=== PATIENT | female | born 1950 | race Two or more races ===

== ENCOUNTER 2019-08-26 09:21 | Inpatient (IN) | payer OTHER, MEDICAID ==
[~2019-08-26] VITALS: Ht 152.4 cm; Wt 62.5 kg
[2019-08-26] MEDS ORDERED: fentaNYL CITRATE 100 MCG/2 ML VL ONE ×2 (09:44→10:59)
[2019-08-26] MEDS ORDERED: MIDAZOLAM HCL 1MG/1ML-2 ML VIAL ONE ×2 (09:44→10:59)
[2019-08-26] MEDS ORDERED: ANGIOMAX 250 MG VIAL IV ONE (09:44)
[2019-08-26] MEDS ORDERED: SODIUM CHL 0.9% 50 ML ONE (09:45)
[2019-08-26] MEDS ORDERED: LIDOCAINE 2%HCL (LOCAL ANESTH.) INJ 20ML MDV ONE (09:45)
[2019-08-26] MEDS ORDERED: IOHEXOL 350 MG/ML 100ML IJ ONE ×2 (09:45→10:37)
[2019-08-26] MEDS ORDERED: MORPHINE SULFATE 4 MG/ML SYR/VIAL ONE (09:47)
[2019-08-26] MEDS ORDERED: ONDANSETRON HCL 4 MG/2 ML VIAL ONE (09:48)
[2019-08-26] MEDS ORDERED: MORPHINE SULF INJ 2 MG/ML SYRINGE 1ML ONE (09:49)
[2019-08-26] MEDS ORDERED: ASPirin 81 mg TAB ONE (09:59)
[2019-08-26] MEDS ORDERED: MORPHINE SULFATE 4 MG/ML SYR/VIAL IV ONE (10:00)
[2019-08-26] MEDS ORDERED: ASPirin 325 MG TAB PO ONE (10:00)
[2019-08-26] MEDS ORDERED: EPINEPHrine HCL 1 MG/10 ML SYRG ONE (10:00)
[2019-08-26] MEDS ORDERED: ONDANSETRON HCL 4 MG/2 ML VIAL IV ONE (10:00)
[2019-08-26] MEDS ORDERED: ATROPINE SULF 1 MG/10ml SYR ONE (10:00)
[2019-08-26] MEDS ORDERED: DOPamine 1600MCG/ML D5W 0 ML IV ONE (10:00)
[2019-08-26] MEDS: ASPirin 81 mg TAB PO SCH (10:14)
[2019-08-26 10:28] LABS: Basophils # (auto) 0.1 uL; Eosinophils # (auto) 0.2 uL; Hematocrit 32.8 % (36.0-46.0); Lymphocytes # (auto) 1.4 uL; Lymphocytes % (auto) 17.1 % (10.0-50.0); Mean Corpuscular Hemoglobin 29.1 pg (28.0-32.0); Mean Corpuscular Hgb Conc. 33.5 g/dL (32.0-36.0); Mean Corpuscular Volume 86.9 fL (80.0-100.0); Monocytes # (auto) 0.3 uL; Monocytes % (auto) 4.3 % (0.0-12.0); Neutrophils # (auto) 6.1 uL; Neutrophils % (auto) 75.6 % (37.0-80.0); Platelet Count (auto) 309 10^3/uL (140-450); Red Blood Cells 3.78 10^6/uL (4.0-5.20); White Blood Cell 8.1 10^3/uL (4.4-10.8)
[2019-08-26 10:46] LABS: INR 0.95 (0.9-1.15); Partial Thromboplastin Time 27.4 sec (23.64-32.05)
[2019-08-26 10:48] LABS: Albumin 3.4 g/dL (3.4-5.0); BUN/Creatinine Ratio 16.1; Calcium 8.9 mg/dL (8.5-10.1); Magnesium 1.7 mg/dL (1.6-2.6); Potassium 4.7 mmol/L (3.5-5.1)
[2019-08-26 10:54] LABS: Bilirubin, Total 0.4 mg/dL (0.2-1.0); Total Protein 7.9 g/dL (6.4-8.2)
[2019-08-26] MEDS ORDERED: InsuLIN REG 1unit/0.01ml Soln (100units/ml) ONE (10:58)
[2019-08-26] MEDS ORDERED: ADENOSINE 6 MG/2 ML INJ IV ONE (11:00)
[2019-08-26] MEDS ORDERED: SODIUM BICARBONATE 8.4 % INJ 50ML VIAL IV ONE (11:21)
[2019-08-26] MEDS ORDERED: TICAGRELOR 90 MG TAB ONE (11:28)
[2019-08-26] MEDS ORDERED: SODIUM BICARBONATE 50ML VIAL 50 ML in SOD CHL 0.45% 1,000 ML IV ONE (11:30)
[2019-08-26] MEDS ORDERED: NITROGLYCERIN 0.4 MG SL TAB SL PRN (12:00)
[2019-08-26] MEDS ORDERED: CILO100T PO (12:27)
[2019-08-26] MEDS ORDERED: LINA5TAB PO (12:27)
[2019-08-26] MEDS ORDERED: LISI10TA6 PO (12:27)
[2019-08-26] MEDS ORDERED: METO25TA5 PO (12:27)
[2019-08-26] MEDS ORDERED: ATOR40TA52 PO (12:27)
[2019-08-26] MEDS ORDERED: HYDR25TA4 PO (12:27)
[2019-08-26] MEDS ORDERED: GLIP5TAB12 PO (12:27)
[2019-08-26] MEDS ORDERED: DEXTROSE (50%) 50ML SYRG IV PRN (12:30)
[2019-08-26] MEDS: InsuLIN REG 1unit/0.01ml Soln (100units/ml) SC SCH ×3 (12:47→20:56)
[2019-08-26 12:52] LABS: BUN/Creatinine Ratio 17.3; Calcium 8.4 mg/dL (8.5-10.1); Potassium 5.3 mmol/L (3.5-5.1)
[2019-08-26] MEDS ORDERED: SODIUM CHLOR 0.9% PF (SALINE LOCK) 10ML VIAL/SYR IV SCH (14:00)
[2019-08-26] MEDS: SODIUM CHLOR 0.9% PF (SALINE LOCK) 10ML VIAL/SYR IV SCH ×2 (14:09→20:11)
[2019-08-26 16:23] VITALS: BP 131/75
--- NOTE | 2019-08-26 16:40 | NUR ---
Admit to [facility] Kenneth CARBALLOdmitted to [facility] via gurney on furnace process supervisor, and portable 02. Patient transfered to bed, connected to unit monitoring and oxygen, and weighed by bedscale. Patient oriented to Steffen manuel RN, unit, room, bed, and unit policies regarding patient care and visiting hours. All questions and concerns addressed, patient verbalized understanding.
--- NOTE | 2019-08-26 17:28 | NUR ---
FAMILY AT BEDSIDE UPDATED ON PATIENT STATUS. ALL QUESTIONS AND CONCERNS ADDRESSED AT THIS TIME
[2019-08-26] MEDS: ACCU-CHEK COMFORT CURVE STRIP VI SCH ×2 (18:06→20:56)
[2019-08-26] MEDS: glipiZIDE 5 MG TAB PO SCH (18:09)
[2019-08-26] MEDS: ACETAMINOPHEN 500 MG TAB PO PRN ×2 (18:20→22:16)
[2019-08-26 18:43] VITALS: BP 134/62
--- NOTE | 2019-08-26 18:50 | NUR ---
DINNER TRAY PROVIDED TO PATIENT
--- NOTE | 2019-08-26 19:15 | NUR ---
REPORT GIVEN TO SAI PÉREZ TO ASSUME CARE
--- NOTE | 2019-08-26 19:21 | NUR ---
REPORT RECEIVED, ASSUMED CARE.
[2019-08-26 20:00] VITALS: BP 120/71
[2019-08-26] MEDS: TICAGRELOR 90 MG TAB PO SCH (20:11)
[2019-08-26] MEDS: METOPROLOL TARTRATE 25 MG TAB PO SCH (20:11)
[2019-08-26] MEDS: ACETYLCYSTEINE ORAL for CIN 20%(200MG/ML) 4ML PO SCH (20:56)
[2019-08-26] MEDS: CILOSTAZOL 100 MG TAB PO SCH (20:56)
[2019-08-26 23:42] VITALS: BP 112/69
[2019-08-27] VITALS (7 sets, daily range): BP systolic 110–129; BP diastolic 59–77
[2019-08-27] MEDS: HYDROcodone-ACET 5/325MG TAB PO PRN ×2 (01:51→09:00)
[2019-08-27 05:17] LABS: BUN/Creatinine Ratio 14.8; Calcium 7.9 mg/dL (8.5-10.1); Potassium 4.9 mmol/L (3.5-5.1)
[2019-08-27] MEDS: ACCU-CHEK COMFORT CURVE STRIP VI SCH ×4 (05:38→22:00)
[2019-08-27] MEDS: SODIUM CHLOR 0.9% PF (SALINE LOCK) 10ML VIAL/SYR IV SCH ×3 (05:38→23:20)
[2019-08-27] MEDS: InsuLIN REG 1unit/0.01ml Soln (100units/ml) SC SCH ×4 (05:39→22:00)
[2019-08-27] MEDS: glipiZIDE 5 MG TAB PO SCH ×2 (06:54→18:11)
--- NOTE | 2019-08-27 08:00 | NUR ---
Opening Shift Note Assumed care of patient, awake and alert. Patient A&Ox4. Patient Kazakh speaking only. Patient on the monitor. Patient on 2L NC saturation at 95%. IV 18G left forearm saline locked and 20G right forearm saline locked, both IV's patent, clean, dry, and intact. No S/S of distress/SOB or pain. Instructed on POC and to call for assist. Bed locked and in the lowest position, side rails up x2, call light with in reach. Will continue to monitor.
--- NOTE | 2019-08-27 08:30 | NUR ---
Patient sitting in bedside chair eating breakfast with assistance from Daughter. Will continue to monitor.
[2019-08-27] MEDS: LINAGLIPTIN BASE 5 MG PO SCH (10:00)
[2019-08-27] MEDS ORDERED: HCTZ 25 MG TAB PO SCH (10:00)
[2019-08-27] MEDS ORDERED: LISINOPRIL 10 MG TAB PO SCH (10:00)
--- NOTE | 2019-08-27 10:00 | NUR ---
Medication dosages, usages, and side effects explained to patient. Patient verbalized understanding. Will continue to monitor.
[2019-08-27] MEDS: ATORVASTATIN 20 MG TAB PO SCH (10:32)
[2019-08-27] MEDS: METOPROLOL TARTRATE 25 MG TAB PO SCH (10:33)
[2019-08-27] MEDS: TICAGRELOR 90 MG TAB PO SCH ×2 (10:34→23:18)
[2019-08-27] MEDS: CILOSTAZOL 100 MG TAB PO SCH (10:34)
[2019-08-27] MEDS: ASPirin 81 mg TAB PO SCH (10:34)
[2019-08-27] MEDS: ACETYLCYSTEINE ORAL for CIN 20%(200MG/ML) 4ML PO SCH ×2 (10:41→23:19)
--- NOTE | 2019-08-27 12:30 | NUR ---
Patient sitting in bedside chair eating breakfast with assistance from family. Will continue to monitor.
[2019-08-27] MEDS ORDERED: LISINOPRIL 20 MG TAB PO ONE (13:00)
--- NOTE | 2019-08-27 13:00 | NUR ---
Dr. Delgado at bedside.
[2019-08-27 13:39] LABS: Cholesterol 102 mg/dL (< 200)
[2019-08-27 13:42] LABS: HDL Cholesterol 34 mg/dL (40-59); LDL Cholesterol 59 mg/dL (< 100); Triglycerides 125 mg/dL (< 150)
--- NOTE | 2019-08-27 15:30 | NUR ---
Patient resting at this time. No S/S of pain/SOB or distress. Will continue to monitor.
[2019-08-27] MEDS: METOPROLOL TARTRATE 50 MG TAB PO SCH ×2 (15:31→23:19)
--- NOTE | 2019-08-27 17:45 | NUR ---
Report given to Suzy PÉREZ. Patient going to room 218A.
[2019-08-27] MEDS ORDERED: diphenhdrAMINE HCL 25 MG CAP PO PRN (18:15)
--- NOTE | 2019-08-27 18:15 | NUR ---
Patient taken to room 218A via wheel chair. All belongings taken with the patient. No S/S of pain/SOB or distress upon transport. Patient in room 218A and resting at this time. ELISA south.
--- NOTE | 2019-08-27 18:20 | NUR ---
Received patient from [facility]. Patient came via wheelchair. Patient placed on 3 L O2 NC, with VS of 115/61, 92%, 16RR, 74bpm and temp of 98.7. Patient is sitting on the edge of the bed eating dinner. No signs of distress. Will continue to monitor.
[2019-08-27] MEDS: ONDANSETRON HCL 4 MG/2 ML VIAL IV PRN ×2 (18:54→21:15)
--- NOTE | 2019-08-27 19:00 | NUR ---
Opening Shift Note Assumed care of patient, awake and alert. No S/S of distress/SOB or pain. Instructed on POC and to call for assist PRN, will continue to monitor for changes Q1hr and PRN.
[2019-08-27] MEDS: MORPHINE SULF INJ 2 MG/ML SYRINGE 1ML IV PRN (21:16)
--- NOTE | 2019-08-27 22:30 | NUR ---
PT COMPLAINING ABOUT URGE TO URINATE BUT NOT BEING ABLE TO. BLADDER SCAN SHOWED 35 ML . PT IN DISTRESS GETTING MOR AND MORE AGITATED.
--- NOTE | 2019-08-27 22:55 | NUR ---
TEXT TO DOCTOR CHRISTIANO WITH REPORT AND ASKING FOR ORDERS.
--- NOTE | 2019-08-27 23:00 | NUR ---
RECEIVED AND IMPLEMENTED ORDERS FROM DOCTOR CHRISTIANO
[2019-08-27] MEDS ORDERED: guaiFENesin-CODEINE Liq 5 ML UD PO PRN (23:15)
[2019-08-28] MEDS: cefTRIAXone 1GM/50ML D5W 50 ML IV SCH ×2 (00:30→23:55)
--- NOTE | 2019-08-28 01:30 | NUR ---
PYRIDIUM ORDER CONTRAINDICATED BY PHARMACY
[2019-08-28 05:00] VITALS: BP 141/82
--- NOTE | 2019-08-28 05:00 | NUR ---
BLADDER SCAN 100 ML
--- NOTE | 2019-08-28 06:50 | NUR ---
TEXT TO DOCTOR CHRISTIANO REPORTING PATIENT BEING VERY AGITATED.SECOND% BLADDER SCAN SHOWED 100 ML t 99.1, HR98, BP141/87. SPO2 89% AND INFO ABOUT BY THE PHARMACY CONTRAINDICATED PYRIDIUM ORDER.
[2019-08-28] MEDS: InsuLIN REG 1unit/0.01ml Soln (100units/ml) SC SCH ×4 (07:00→22:00)
[2019-08-28] MEDS: ACCU-CHEK COMFORT CURVE STRIP VI SCH ×4 (07:00→22:24)
[2019-08-28] MEDS: glipiZIDE 5 MG TAB PO SCH ×2 (07:00→18:00)
--- NOTE | 2019-08-28 07:30 | NUR ---
REPORT GIVEN TO BONNIE
--- NOTE | 2019-08-28 07:30 | NUR ---
Opening Shift Note Assuming care of patient at this time. Patient is awake and alert. Patient is moaning and expressing discomfort in Lebanese. Patient handed this RN her cellphone at this time and requested that multiple numbers be called. No answer from any of the numbers dialed. Patient shows no signs or symptoms of shortness of breath. Bed is locked and lowered with side rails up x2. Instructed patient on the plan of care for today and to call for assistance as needed. Call light within reach. Will continue to round hourly and as needed.
[2019-08-28] MEDS: SODIUM CHLOR 0.9% PF (SALINE LOCK) 10ML VIAL/SYR IV SCH ×3 (08:34→22:23)
[2019-08-28] MEDS ORDERED: SODIUM CHLORIDE 0.9% 1,000 ML IV ONE (08:45)
[2019-08-28 09:00] VITALS: BP 119/84
--- NOTE | 2019-08-28 09:00 | NUR ---
Refusing Labs/Medications Patient has been refusing labs and medications this morning. Patient is sitting at the edge of the bed, very anxious, and moaning. Educated patient on the importance of medications and accurate labs.
[2019-08-28] MEDS: LINAGLIPTIN BASE 5 MG PO SCH (09:52)
[2019-08-28] MEDS ORDERED: PHENAZOPYRIDINE HCL 100 MG TAB PO SCH (10:00)
[2019-08-28] MEDS: METOPROLOL TARTRATE 50 MG TAB PO SCH ×2 (10:00→22:24)
[2019-08-28] MEDS: ATORVASTATIN 20 MG TAB PO SCH (10:00)
[2019-08-28] MEDS ORDERED: LISINOPRIL 20 MG TAB PO SCH (10:00)
[2019-08-28] MEDS: TICAGRELOR 90 MG TAB PO SCH ×2 (10:00→22:24)
[2019-08-28 10:05] LABS: Basophils # (auto) 0 uL; Basophils % (auto) 0.2 % (0.0-2.0); Eosinophils # (auto) 0 uL; Eosinophils % (auto) 0.4 % (0.0-7.0); Hematocrit 25.8 % (36.0-46.0); Hemoglobin 8.8 g/dL (12.2-16.2); Lymphocytes % (auto) 8.1 % (10.0-50.0); Mean Corpuscular Hemoglobin 29.3 pg (28.0-32.0); Mean Corpuscular Hgb Conc. 34.3 g/dL (32.0-36.0); Mean Corpuscular Volume 85.4 fL (80.0-100.0); Monocytes # (auto) 0.7 uL; Monocytes % (auto) 5.8 % (0.0-12.0); Neutrophils # (auto) 10.1 uL; Neutrophils % (auto) 85.5 % (37.0-80.0); Nucleated Red Blood Cells % 0.1 %; Platelet Count (auto) 242 10^3/uL (140-450); Red Blood Cells 3.02 10^6/uL (4.0-5.20); Red Cell Distribution Width 15.2 % (11.8-14.3); White Blood Cell 11.8 10^3/uL (4.4-10.8)
[2019-08-28] MEDS: MORPHINE SULF INJ 2 MG/ML SYRINGE 1ML IV PRN ×3 (10:15→21:06)
--- NOTE | 2019-08-28 10:20 | NUR ---
Nephrology Consult Dr. Tang is aware of pending consult.
--- NOTE | 2019-08-28 10:24 | NUR ---
Call to Dr. Delgado Call to Dr. Delgado. Patient had approximately 75 mL of urine out from stevens catheter. Dr. Delgado wants nephrology consult called immediately. Will notify rn coronary care unit.
[2019-08-28 10:28] LABS: Calcium 7.7 mg/dL (8.5-10.1); Potassium 5.3 mmol/L (3.5-5.1)
[2019-08-28 10:30] LABS: Bilirubin, Total 0.3 mg/dL (0.2-1.0); Total Protein 7.3 g/dL (6.4-8.2)
[2019-08-28] MEDS ORDERED: SODIUM CHL 3% 500 ML IV SCH ×2 (11:00→11:30)
[2019-08-28] MEDS ORDERED: diphenhdrAMINE HCL 50 MG/1 ML VL IV ONE (11:00)
[2019-08-28] MEDS ORDERED: BUMETANIDE 2.5mg/10ml (0.25 mg/ml) INJ IV ONE (11:30)
[2019-08-28] MEDS ORDERED: SODIUM BICARBONATE 50ML VIAL 100 ML in SOD CHL 0.45% 1,000 ML IV SCH (11:30)
--- NOTE | 2019-08-28 13:00 | NUR ---
Dr. Green at bedside Dr. Green at bedside discussing plan of care with patient and this RN. Dr. Green does not want patient to receive fluids as ordered by Dr. Tang. Patient is edematous. Patient has pulmonary edema per Dr. Green. Will notify Dr. Tang.
[2019-08-28] MEDS: ACETYLCYSTEINE ORAL for CIN 20%(200MG/ML) 4ML PO SCH (13:15)
--- NOTE | 2019-08-28 13:15 | NUR ---
Call to Dr. Tang Call to Dr. Tang at this time. Made aware that patient will not be receiving fluids as ordered. Bumex bolus and drip will be given as ordered. verbalized understanding. Will continue with PO medications.
[2019-08-28] MEDS ORDERED: FUROSEMIDE 100 MG/10ML VIAL IV ONE (13:20)
[2019-08-28] MEDS: BUMETANIDE INJECTION 25 MG in GIVE UN-DILUTED 0 ML IV SCH (13:39)
[2019-08-28 14:27] LABS: BUN/Creatinine Ratio 11.2; Calcium 7.9 mg/dL (8.5-10.1); Potassium 5.3 mmol/L (3.5-5.1)
[2019-08-28] MEDS ORDERED: LORazepam 2MG/ML-1ML VIAL IV ONE (14:30)
[2019-08-28 14:41] LABS: Urine Bacteria FEW /hpf (None Seen); Urine Blood 1+ /uL (Negative); Urine WBC 1404 /hpf (0 - 5); Urine WBC Clumps PRESENT /hpf (None Seen)
--- NOTE | 2019-08-28 14:45 | NUR ---
Critical Sodium Call to Dr. Delgado about patient's critical sodium, 116. Dr. Delgado aware, sodium is trending up.
--- NOTE | 2019-08-28 16:17 | NUR ---
Report given to [facility] RN Report given to [facility] RN at this time.
--- NOTE | 2019-08-28 16:47 | NUR ---
Transfer Patient transferred to [facility] at this time per doctor's orders. Family at bedside. All belongings taken by family to new room.
--- NOTE | 2019-08-28 16:50 | NUR ---
Patient in room 264. Patient on the monitor. Patient on 2L NC saturation at 97%. Patient very confused A&Ox1. Family at bedside keeping patient from getting out of bed. Will page Doctor for Sitter. IV left forearm 18G saline locked and right forearm 20G running Bumex at 4ml/hr, both IV's patent, clean, dry, and intact. Mathews to gravity. Bed locked and in the lowest position, side rails x2, call light with in reach. Will continue to monitor.
[2019-08-28 17:00] VITALS: BP 120/65
--- NOTE | 2019-08-28 18:30 | NUR ---
End of shift note: Patient sitting up in bedside chair with family at bedside. Patient on the monitor. Patient on 2L NC saturation at 100%. Left forearm 18G saline locked and right forearm 20G running Bumex at 4ml/hr. Both IV's patent, clean, dry, and intact. Mathews to gravity, only 25ml of output. Bed locked and in the lowest position, side rails up x2, call light with in reach. Report to be given to shift production supervisor RN. Will continue to monitor.
[2019-08-28 19:07] LABS: BUN/Creatinine Ratio 9.7; Calcium 7.6 mg/dL (8.5-10.1); Potassium 5.2 mmol/L (3.5-5.1)
--- NOTE | 2019-08-28 19:14 | NUR ---
OPENING SHIFT REPORT RECEIVED FROM DAY SHIFT RN. ASSUMED CARE OF PATIENT. PATIENT SITTING IN CHAIR WITH DAUGHTER AT THE BEDSIDE, WITH NO SIGNS OR SYMPTOMS OF SOB, PAIN OR DISTRESS. CURRENTLY ON 2L NASAL CANNULA, 02 SAT - 100%. LEFT AND RIGHT FOREARM - CLEAN/DRY/INTACT. LEBLANC HUNG TO GRAVITY ON BED RAIL. DAUGHTER AT BEDSIDE, PATIENT SITTING IN CHAIR. WILL CONTINUE TO MONITOR.
[2019-08-28] MEDS ORDERED: LORazepam 2MG/ML-1ML VIAL IV PRN (19:30)
[2019-08-28 20:00] VITALS: BP 139/69
--- NOTE | 2019-08-28 20:17 | NUR ---
CHEST PAIN PATIENT COMPLAINING OF CHEST PAIN, TRANSLATED BY DAUGHTER. COVERED WITH 2MG MORPHINE. WILL CONTINUE TO MONITOR. Addendum: 08/29/19 at 0118 by ALYSON ZAMBRANO RN RN EKG PERFORMED - SHOWED SINUS TACHYCARDIA, ST AND T WAVE ABNORMALITY, CONSIDER LATERAL ISCHEMIA .
--- NOTE | 2019-08-28 20:50 | NUR ---
DR. ALVARADO MESSAGE SENT TO DR. ALVARADO IN REGARDS TO RECENT ABG. AWAITING REPLY.
--- NOTE | 2019-08-28 21:25 | NUR ---
BICARB DR. ALVARADO REPLIED AND GAVE ORDERS FOR 1 AMP OF SODIUM BICARB. BICARB GIVEN. WILL CONTINUE TO MONITOR.
[2019-08-28] MEDS ORDERED: SODIUM BICARBONATE 8.4 % INJ 50ML VIAL IV ONE ×2 (21:30→21:39)
[2019-08-28] MEDS: HYDROcodone-ACET 5/325MG TAB PO PRN (22:10)
[2019-08-28] MEDS: METOCLOPRAMIDE HCL 10 MG TAB PO SCH (22:24)
[2019-08-29] VITALS: BP 133/62
--- NOTE | 2019-08-29 02:20 | NUR ---
LOW BLOOD SUGAR NOTED BLOOD SUGAR - 57. PATIENT REFUSED TO DRINK ORANGE JUICE. D50 GIVEN. WILL CONTINUE TO MONITOR.
[2019-08-29 04:00] VITALS: BP 132/69
[2019-08-29] MEDS: HYDROcodone-ACET 5/325MG TAB PO PRN ×3 (05:58→21:18)
--- NOTE | 2019-08-29 06:24 | NUR ---
Partial linen change. Unable to perform bed bath due to confusion and restlessness.
[2019-08-29] MEDS: glipiZIDE 5 MG TAB PO SCH ×2 (06:39→17:03)
[2019-08-29] MEDS: InsuLIN REG 1unit/0.01ml Soln (100units/ml) SC SCH ×4 (06:39→22:00)
[2019-08-29] MEDS: ACCU-CHEK COMFORT CURVE STRIP VI SCH ×4 (06:40→22:00)
[2019-08-29] MEDS: METOCLOPRAMIDE HCL 10 MG TAB PO SCH ×3 (06:53→22:51)
[2019-08-29] MEDS: SODIUM CHLOR 0.9% PF (SALINE LOCK) 10ML VIAL/SYR IV SCH ×3 (06:53→22:42)
--- NOTE | 2019-08-29 07:15 | NUR ---
END OF SHIFT REPORT GIVEN TO DAY SHIFT RN. CARE ENDORSED.
[2019-08-29 07:58] LABS: Albumin 2.9 g/dL (3.4-5.0); BUN/Creatinine Ratio 9.6; Calcium 7.5 mg/dL (8.5-10.1); Phosphorus 4.1 mg/dL (2.5-4.90); Potassium 5.3 mmol/L (3.5-5.1)
[2019-08-29 08:00] VITALS: BP 156/83
[2019-08-29 08:00] LABS: Bilirubin, Total 0.4 mg/dL (0.2-1.0); Total Protein 6.9 g/dL (6.4-8.2)
[2019-08-29] MEDS: BUMETANIDE INJECTION 25 MG in GIVE UN-DILUTED 0 ML IV SCH (08:15)
--- NOTE | 2019-08-29 09:10 | NUR ---
DR. CHOWDHURY AT BEDSIDE: ORDERS GIVEN MUST OBTAIN HD CATHETER. DR. NEWMAN CALLED. OTHER ORDERS GIVEN AND TO BE CARRIED OUT. CONTINUE CARE.
[2019-08-29] MEDS ORDERED: SODIUM CHL 0.9% 1000 ML BAG XX ONE (09:30)
[2019-08-29] MEDS: ATORVASTATIN 20 MG TAB PO SCH (10:00)
[2019-08-29] MEDS: ASPirin 81 mg TAB PO SCH (10:53)
[2019-08-29] MEDS: LINAGLIPTIN BASE 5 MG PO SCH (10:54)
[2019-08-29] MEDS: TICAGRELOR 90 MG TAB PO SCH ×2 (10:55→22:00)
[2019-08-29] MEDS: METOPROLOL TARTRATE 50 MG TAB PO SCH ×2 (10:55→22:51)
--- NOTE | 2019-08-29 11:20 | NUR ---
DR. NEWMAN AT BEDSIDE: PLACEMENT OF HD CATHETER AT BEDSIDE AT THIS TIME. CXR TAKEN AFTER PROCEDURE. WILL CONTINUE CARE. MD ONEAL CATHETER OKAY TO USE.
[2019-08-29] MEDS: DexAMETHasone INJECTION 10 MG in D5W 5% 50 ML IV SCH (11:42)
[2019-08-29 12:00] VITALS: BP 161/72
--- NOTE | 2019-08-29 13:30 | NUR ---
COURT ABSTRACTOR HAVING TROUBLE WITH CATHETER. MACHINE ALARMING. DIALYSIS STOPPED AT THIS TIME AND STAT CXR ORDERED.
[2019-08-29 16:00] VITALS: BP 131/76
--- NOTE | 2019-08-29 16:12 | NUR ---
Assessment Pt is a 69 yr old romansh speaking blind female. SW unable to communicate with pt and called pt's daughter Love at [phone]. Prior to admit, pt lives with her daughter Love. Pt is ambulatory with a cane. Pt functions independently with ADL's. Pt's daughter helps with cooking and cleaning. Prior to admit, pt complained of jaw pain and headache. Pt's daughter took her to the hospital and found out the pt had a heart attack. Pt is a new dialysis pt as well, CM working on finding a facility and chair time for the pt. Pt receives income. Pt does not have AD on file. Pt's daughter is unsure of pt's transportation needs upon d/c. Further needs will be assessed closer to d/c. Addendum: 08/29/19 at 1617 by TIFFANY GUALLPA Amended: Links added.
[2019-08-29 16:19] LABS: Hepatitis A Ab IgM Negative; Hepatitis B Core IgM Negative; Hepatitis B Surface Antigen Negative (Negative); Hepatitis C Antibody Negative (Negative)
--- NOTE | 2019-08-29 18:29 | NUR ---
HD CATHETER EXCHANGED AT THIS TIME WITH PROCEDURE DONE AT BEDSIDE. #20F CATHETER NOW PLACED IN PATIENT TO RIGHT IJ. PENDING HD LATER FOR TOMORROW. DR. CHOWDHURY TO BE INFORMED. CONTINUE CARE. PRESSURE DRESSING PLACED OVER SITE DUE TO BLEEDING.
--- NOTE | 2019-08-29 19:10 | NUR ---
OPENING SHIFT RECEIVED REPORT FROM DAY SHIFT RN. ASSUMED CARE OF PATIENT. PATIENT IN BED, FAMILY AT BEDSIDE WITH NO SIGNS OF SOB, PAIN OR DISTRESS. UPDATED FAMILY ON PLAN OF CARE. LEFT HAND AND RIGHT FOREARM IV - CLEAN/DRY/INTACT. LEBLANC HUNG TO GRAVITY ON BED RAIL. RIGHT INTRAJUGULAR DIALYSIS CATHETER - CONTINUES TO LEAK, DRESSED WITH SURGICAL SNOW, GAUZE AND PRESSURE DRESSING. BED IN LOWEST POSITION, SIDE RAILS UP X2, CALL LIGHT WITHIN REACH. WILL CONTINUE TO MONITOR.
[2019-08-29 20:00] VITALS: BP 150/82
--- NOTE | 2019-08-29 20:20 | NUR ---
HOSPITALIST PAGED HOSPITALIST, AWAITING CALL BACK.
--- NOTE | 2019-08-29 20:40 | NUR ---
HOSPITALIST CALLED BACK RECEIVED CALL BACK FROM HOSPITALIST. MADE AWARE OF BLEEDING DIALYSIS CATHETER SITE. HOSPITALIST AGREES TO CONTINUE TO DRESS WITH SURGICAL SNOW AND PRESSURE DRESSING. WILL CONTINUE TO MONITOR.
--- NOTE | 2019-08-29 20:43 | NUR ---
DRESSING CHANGE DIALYSIS CATHETER INTRAJUGULAR SITE LEAKING. DRESSING CHANGED, PACKED WITH SURGICAL SNOW, GAUZE, AND APPLIED PRESSURE DRESSING. WILL CONTINUE TO MONITOR.
[2019-08-29] MEDS ORDERED: EPOETIN ALFA 10,000 UNIT/1 ML VIAL SC ONE (21:00)
--- NOTE | 2019-08-29 23:30 | NUR ---
DRESSING CHANGE DIALYSIS CATHETER INTRAJUGULAR SITE LEAKING. DRESSING CHANGED, PACKED WITH SURGICAL SNOW, GAUZE, AND HELD PRESSURE. TEGADERM AND ICE PACK APPLIED. WILL CONTINUE TO MONITOR.
[2019-08-29] MEDS: cefTRIAXone 1GM/50ML D5W 50 ML IV SCH (23:54)
[2019-08-30] VITALS (7 sets, daily range): BP systolic 106–162; BP diastolic 51–87
--- NOTE | 2019-08-30 00:45 | NUR ---
HOSPITALIST PAGED HOSPITALIST, AWAITING CALL BACK.
--- NOTE | 2019-08-30 00:55 | NUR ---
HOSPITALIST CALLED BACK HOSPITALIST MADE AWARE OF LEAKING AT DIALYSIS CATHETER SITE. GAVE ORDERS FOR STAT H&H. WILL CONTINUE TO MONITOR. Addendum: 08/30/19 at 0225 by ALYSON ZAMBRANO RN RN GAVE ORDERS FOR STAT PT/PTT.
--- NOTE | 2019-08-30 01:14 | NUR ---
DIALYSIS CATHETER SITE CONTINUES TO BLEED. MANUAL PRESSURE APPLIED. NO SIGNS OR SYMPTOMS OF SOB, PAIN OR DISTRESS. WILL CONTINUE TO MONITOR.
[2019-08-30 01:18] LABS: Hemoglobin 8.5 g/dL (12.2-16.2)
[2019-08-30 01:37] LABS: Partial Thromboplastin Time 31.9 sec (23.64-32.05)
--- NOTE | 2019-08-30 02:04 | NUR ---
DIALYSIS CATHETER SITE SITE APPEARS TO HAVE STOPPED BLEEDING. SURGICAL SNOW APPLIED, DRESSED WITH TEGADERM. WILL CONTINUE TO MONITOR.
[2019-08-30 06:12] LABS: Basophils # (auto) 0 uL; Basophils % (auto) 0.5 % (0.0-2.0); Eosinophils # (auto) 0.1 uL; Eosinophils % (auto) 1.2 % (0.0-7.0); Hematocrit 23.4 % (36.0-46.0); Hemoglobin 8.2 g/dL (12.2-16.2); Lymphocytes # (auto) 0.9 uL; Lymphocytes % (auto) 10.3 % (10.0-50.0); Mean Corpuscular Hemoglobin 29.7 pg (28.0-32.0); Mean Corpuscular Hgb Conc. 34.8 g/dL (32.0-36.0); Mean Corpuscular Volume 85.4 fL (80.0-100.0); Monocytes # (auto) 0.6 uL; Neutrophils # (auto) 6.7 uL; Platelet Count (auto) 250 10^3/uL (140-450); Red Blood Cells 2.74 10^6/uL (4.0-5.20); White Blood Cell 8.3 10^3/uL (4.4-10.8)
[2019-08-30 06:16] LABS: INR 1.01 (0.9-1.15); Partial Thromboplastin Time 32.2 sec (23.64-32.05)
[2019-08-30 06:19] LABS: Albumin 2.9 g/dL (3.4-5.0); Calcium 7.5 mg/dL (8.5-10.1); Potassium 5.3 mmol/L (3.5-5.1)
[2019-08-30] MEDS: SODIUM CHLOR 0.9% PF (SALINE LOCK) 10ML VIAL/SYR IV SCH ×3 (06:20→22:03)
[2019-08-30 06:24] LABS: BUN/Creatinine Ratio 8.6; Bilirubin, Total 0.3 mg/dL (0.2-1.0); Total Protein 6.9 g/dL (6.4-8.2); Uric Acid 8.6 mg/dL (2.6-6.0)
[2019-08-30] MEDS: METOCLOPRAMIDE HCL 10 MG TAB PO SCH ×3 (06:30→22:03)
[2019-08-30] MEDS: glipiZIDE 5 MG TAB PO SCH ×2 (06:32→17:34)
[2019-08-30] MEDS: ACCU-CHEK COMFORT CURVE STRIP VI SCH ×4 (06:32→22:03)
[2019-08-30] MEDS: InsuLIN REG 1unit/0.01ml Soln (100units/ml) SC SCH ×4 (06:32→22:03)
--- NOTE | 2019-08-30 07:18 | NUR ---
END OF SHIFT REPORT GIVEN TO DAY SHIFT RN. CARE ENDORSED.
--- NOTE | 2019-08-30 08:00 | NUR ---
SBAR REPORT RECEIVED FRO NOC SHIFT RN ROCIO. AM ASSESSMENT PERFORMED AT THIS TIME WITH 0 COMPLICATIONS NOTED. SEE FLOWSHEET FOR MORE DETAILS. PT AFFECT IS SHE IS RESTLESS. PT DOES NOT C/O PAIN WHEN ASKED. PT IS CHILEAN SPEAKING MOSTLY BUT CAN COMMUNICATE SOME VERBAL COMMANDS IN [place]. PT EDUCATED ON POC BUT REMAINS RESTLESS DESPITE REASSURANCE. VSS.
--- NOTE | 2019-08-30 08:30 | NUR ---
MD ZAVALA AT BEDSIDE. UPDATED MD WITH PT OVERALL STATUS INCLUDING ABNORMAL LAB VALUES. NEW ORDERS GIVEN AND IMPLEMENTED, VSS.
[2019-08-30] MEDS: METOPROLOL TARTRATE 50 MG TAB PO SCH ×2 (10:00→22:03)
[2019-08-30] MEDS: TICAGRELOR 90 MG TAB PO SCH ×2 (10:00→22:02)
[2019-08-30] MEDS: ATORVASTATIN 20 MG TAB PO SCH (10:00)
[2019-08-30] MEDS: ASPirin 81 mg TAB PO SCH (10:00)
[2019-08-30] MEDS: LINAGLIPTIN BASE 5 MG PO SCH (10:00)
[2019-08-30] MEDS: DexAMETHasone INJECTION 10 MG in D5W 5% 50 ML IV SCH (10:00)
--- NOTE | 2019-08-30 10:00 | NUR ---
MD CHOWDHURY AT BEDSIDE. UPDATED MD WITH PT OVERALL STATUS INCLUDING ABNORMAL LAB VALUES. NEW ORDERS GIVEN AND IMPLEMENTED, VSS. PT TO RECEIVE DIALYSIS LATER TODAY PER MD ORDERS.
[2019-08-30] MEDS: AMITRIPTYLINE HCL 10 MG TAB PO SCH ×2 (11:17→22:02)
[2019-08-30] MEDS: BUMETANIDE INJECTION 25 MG in GIVE UN-DILUTED 0 ML IV SCH (11:30)
--- NOTE | 2019-08-30 12:01 | NUR ---
NUTRITION ASSESSMENT NOTES Please refer to link notes of nutrition screen form filed under the intervention section of the plan of care for further details. Est. Needs: 1250 kcal to 1600 kcal (18-23 kcal/kgBW), 57 gms to 72 gms pro (1.2-1.6 gms/kgIBW: 45 kg d/t ESRD on HD). Will continue to monitor pertinent labs and reassess nutrient need prn Thank you. Addendum: 08/30/19 at [address] Amended: Links added.
--- NOTE | 2019-08-30 13:15 | NUR ---
PT STILL RESTLESS DESPITE GIVING DOSE OF ELAVIL. AT FAMILY'S REQUEST, ADMINISTERED ATIVAN AT THIS TIME FOR PT COMFORT. PT APPEARS TO BE RELAXING A BIT MORE ALTHOUGH PT REFUSED ORAL MEDICATION AT THIS TIME (REGLAN). VSS.
--- NOTE | 2019-08-30 13:15 | NUR ---
DIRECTOR OF EVENT SALES AT BEDSIDE PERFORMING PROCEDURE AT THIS TIME WITH 0 COMPLICATIONS NOTED, VSS.
--- NOTE | 2019-08-30 14:15 | NUR ---
ELECTROENCEPHALOGRAM COMPLETED AT BEDSIDE. ELISA HO NOTIFIED.
--- NOTE | 2019-08-30 14:59 | NUR ---
BUSINESS PROCESS ASSOCIATE AT BEDSIDE AT THIS TIME (ABOUT TO PERFORM HD). PT IN BED WITH 0 S/S OF AGITATION AT THIS TIME. MD ALVARADO AT BEDSIDE. UPDATED MD ON PT STATUS. NO NEW ORDERS AT THIS TIME. VSS.
--- NOTE | 2019-08-30 16:24 | NUR ---
PT ON HEMODIALYSIS AT THIS TIME. PT IS BECOMING SLIGHTLY RESTLESS AND IS WAKING UP MORE. PT'S HEART RATE RANGING 130-140'S (MD ALVARADO AWARE) WHILE ON HEMODIALYSIS. ALL OTHER VITAL SIGNS STABLE.
--- NOTE | 2019-08-30 16:27 | NUR ---
Chair time. Spoke to Kay at [facility] and she stated [facility] is contracted with [facility]. She asked that our SS set up dialysis on this pt.
--- NOTE | 2019-08-30 18:10 | NUR ---
PT COMPLETED WITH HEMODIALYSIS SESSION AT THIS TIME. PT TOLERATED PROCEDURE ALTHOUGH PT'S HEART RATE DURING PROCEDURE RANGED 130-140'S WITH MILD CONFUSION NOTED (PT WAS PULLING ON LINES OCCAISIONALLY). TOTAL OUTPUT WAS 1.9 LITERS. ONCE HD SESSION WAS COMPLETED, PT'S HEART RATE RANGING BACK TO 100-115'S. VSS.
--- NOTE | 2019-08-30 19:18 | NUR ---
OPENING SHIFT RECEIVED REPORT FROM DAY SHIFT RN. ASSUMED CARE OF PATIENT. PATIENT IN SITTING IN CHAIR WITH NO SIGNS OR SYMPTOMS OF SOB, PAIN OR DISTRESS. CURRENTLY ON 3L 02 NASAL CANNULA, 02 SAT - 97%. RIGHT FOREARM AND LEFT HAND - CLEAN/DRY/INTACT. REORIENTED PATIENT TO ENVIRONMENT. CALL LIGHT WITHIN REACH, WILL CONTINUE TO MONITOR.
[2019-08-30] MEDS ORDERED: EPOETIN ALFA 10,000 UNIT/1 ML VIAL SC ONE (21:00)
[2019-08-30] MEDS: cefTRIAXone 1GM/50ML D5W 50 ML IV SCH (23:45)
[2019-08-31 03:46] VITALS: BP 137/69
--- NOTE | 2019-08-31 05:25 | NUR ---
MORNING CARE PERFORMED MORNING CARE WITH WASH CLOTHS. PARTIAL LINEN CHANGE AND GOWN CHANGED. REPOSITIONED FOR COMFORT. SKIN REASSESSED AT THIS TIME. BED IN LOWEST POSITION, SIDE RAILS UPX2, CALL LIGHT WITHIN REACH. WILL CONTINUE TO MONITOR.
[2019-08-31 05:27] LABS: Hematocrit 25.9 % (36.0-46.0); Hemoglobin 8.9 g/dL (12.2-16.2)
[2019-08-31 05:48] LABS: Albumin 3.5 g/dL (3.4-5.0); Calcium 8.3 mg/dL (8.5-10.1); Potassium 3.8 mmol/L (3.5-5.1)
[2019-08-31 05:51] LABS: % Iron Saturation 15.1 % (15-50)
[2019-08-31 05:52] LABS: BUN/Creatinine Ratio 8.3; Bilirubin, Total 0.5 mg/dL (0.2-1.0); Total Protein 8.3 g/dL (6.4-8.2)
[2019-08-31] MEDS: METOCLOPRAMIDE HCL 10 MG TAB PO SCH ×2 (06:14→14:25)
[2019-08-31] MEDS: InsuLIN REG 1unit/0.01ml Soln (100units/ml) SC SCH ×3 (06:14→18:12)
[2019-08-31] MEDS: AMITRIPTYLINE HCL 10 MG TAB PO SCH (06:14)
[2019-08-31] MEDS: ACCU-CHEK COMFORT CURVE STRIP VI SCH ×3 (06:14→18:11)
[2019-08-31] MEDS: glipiZIDE 5 MG TAB PO SCH ×2 (06:14→18:15)
[2019-08-31] MEDS: SODIUM CHLOR 0.9% PF (SALINE LOCK) 10ML VIAL/SYR IV SCH ×2 (06:26→14:24)
[2019-08-31] MEDS ORDERED: SODIUM CHL 0.9% 1000 ML BAG XX ONE (07:00)
--- NOTE | 2019-08-31 07:25 | NUR ---
END OF SHIFT REPORT GIVEN TO DAY SHIFT RN. CARE ENDORSED.
--- NOTE | 2019-08-31 07:30 | NUR ---
Opening Shift Note Assumed care of patient, awake and oriented to self, re-orientation done. Blind and primary French speaking, [employer] [facility] utilized in communicating with patient. No S/S of distress/SOB or pain. Patient oxygen saturation 98% at 3 LPM oxygen via nasal cannula. See interventions for complete assessment. Bed locked on low position, side rails up x2, instructed on POC and to call for assist PRN, will continue to monitor for changes Q1hr and PRN.
[2019-08-31 08:00] VITALS: BP 126/68
--- NOTE | 2019-08-31 09:00 | NUR ---
Patient's daughter Love at bedside, updated on patient's status and POC, daughter verbalized understanding. All questions and concerns addressed.
[2019-08-31] MEDS: TICAGRELOR 90 MG TAB PO SCH (09:26)
[2019-08-31] MEDS: ASPirin 81 mg TAB PO SCH (09:27)
[2019-08-31] MEDS: METOPROLOL TARTRATE 50 MG TAB PO SCH (09:27)
[2019-08-31] MEDS: ATORVASTATIN 20 MG TAB PO SCH (09:27)
[2019-08-31] MEDS: BUMETANIDE INJECTION 25 MG in GIVE UN-DILUTED 0 ML IV SCH (09:29)
--- NOTE | 2019-08-31 09:45 | NUR ---
Dr Delgado at bedside, updated on patient's status. Patient seen and examined. Plan to transfer patient to [facility]. Will carry out new orders.
--- NOTE | 2019-08-31 09:49 | NUR ---
Dr Tang at bedside, updated on patient's status. Patient seen and examined. Plan to do HD tomorrow, Will carry out new orders.
[2019-08-31] MEDS: LINAGLIPTIN BASE 5 MG PO SCH (10:00)
--- NOTE | 2019-08-31 10:30 | NUR ---
Ed not available, instructed patient's daughter Love to bring in medication, daughter verbalized understanding.
--- NOTE | 2019-08-31 10:39 | NUR ---
Transfer: Transfer packet sent to [facility]. Spoke to Jaja VALDERRAMA for [facility] and she will work on transferring pt
[2019-08-31] MEDS: DexAMETHasone INJECTION 10 MG in D5W 5% 50 ML IV SCH (11:07)
--- NOTE | 2019-08-31 11:51 | NUR ---
Transfer: spoke to pts's daughter about transfer. Explained that pt will require several more days of hospitalization and will need d/c planning for HD and f/u appt with [facility]. I explained that it is better to have her mother go back into network ([facility]) so the transition to hospital care and d/c needs goes smoothly and without incidence if pt is in network . Daughter agreeable. Jaja VALDERRAMA for [facility] informed of conversation of transfer and agreeable for transfer.
[2019-08-31 12:00] VITALS: BP 129/58
--- NOTE | 2019-08-31 12:48 | NUR ---
Dr Mehta at bedside, updated on patient's status. Patient seen and examined. Will carry out new orders. Addendum: 08/31/19 at 1540 by Adilene Mckeon RN Dr Delgado instead of Dr Mehta.
[2019-08-31] MEDS ORDERED: DOCUSATE SOD 100 MG CAP PO ONE (14:30)
--- NOTE | 2019-08-31 15:40 | NUR ---
Tradjenta 5mg tabs received from patient's daughter Love, will send to pharmacy.
[2019-08-31 16:00] VITALS: BP 110/56
--- NOTE | 2019-08-31 16:21 | NUR ---
Received call from [facility], spoke to Shikha. Per Shikha patient is going to [facility] room [address] Suhail Metz Telephone number to call for report [phone]. Pick-up time will be 1900. Shikha's number [phone]
--- NOTE | 2019-08-31 16:26 | NUR ---
Tradjenta tablets returned to patient's daughter Love.
--- NOTE | 2019-08-31 17:00 | NUR ---
Discharge MRSA sent to lab
--- NOTE | 2019-08-31 18:20 | NUR ---
Called [facility] via telephone number [phone], gave report to Chel PÉREZ
[2019-08-31 18:30] VITALS: BP 125/72
--- NOTE | 2019-08-31 19:55 | NUR ---
OPEN NOTES Patient is resting, Serbian speaking only. Daughter at bedside translating. Patient is blind. Breathing comfortably , on Nasal cannula at 3L/min. VS stable. With ongoing Bumex drip at 4ml/hr With right IJ dialysis catheter. Last HD yesterday as per report Patient is for transfer to [facility]
[2019-08-31 20:00] VITALS: BP 132/74
--- NOTE | 2019-08-31 20:00 | NUR ---
ambulance staff here to transport patient
--- NOTE | 2019-08-31 20:20 | NUR ---
transport patient taken by transport team
[2019-08-31] MEDS ORDERED: EPOETIN ALFA 10,000 UNIT/1 ML VIAL SC ONE (21:00)
[2019-08-31] MEDS ORDERED: DOCUSATE SOD 100 MG CAP PO SCH (22:00)
[2019-09-01] MEDS ORDERED: AMITRIPTYLINE HCL 10 MG TAB PO SCH (10:00)
== END 2019-08-31 20:20 | disposition short-term general hospital (02) | DRG 248 ==
LOC: EDBD 09:21 → ER 09:21 → CATH 1 10:36 → DOU IN ICU 15:31 → TELE-CENTR 08-27 18:19 → DOU IN ICU 08-28 16:46
PROVIDERS: ADMIT Internal Medicine; ATTEND Family Medicine
PROC: 02723FZ Dilation of Coronary Artery, Three Arteries with Three Intraluminal Devices, Percutaneous Approach (ICD-10-PCS; principal; 2019-08-26)
PROC: 4A033BC Measurement of Arterial Pressure, Coronary, Percutaneous Approach (ICD-10-PCS; 2019-08-26)
PROC: 4A023N7 Measurement of Cardiac Sampling and Pressure, Left Heart, Percutaneous Approach (ICD-10-PCS; 2019-08-26)
PROC: B2111ZZ Fluoroscopy of Multiple Coronary Arteries using Low Osmolar Contrast (ICD-10-PCS; 2019-08-26)
PROC: 5A1D70Z Performance of Urinary Filtration, Intermittent, Less than 6 Hours Per Day (ICD-10-PCS; 2019-08-29)
PROC: 5A1D70Z Performance of Urinary Filtration, Intermittent, Less than 6 Hours Per Day (ICD-10-PCS; 2019-08-30)
DX: I21.3 ST elevation (STEMI) myocardial infarction of unspecified site (principal); G93.41 Metabolic encephalopathy; N17.0 Acute kidney failure with tubular necrosis; E87.1 Hypo-osmolality and hyponatremia; E87.2 Acidosis; I50.20 Unspecified systolic (congestive) heart failure; I13.2 Hypertensive heart and chronic kidney disease with heart failure and with stage 5 chronic kidney disease, or end stage renal disease; N18.5 Chronic kidney disease, stage 5; E11.40 Type 2 diabetes mellitus with diabetic neuropathy, unspecified; E87.5 Hyperkalemia; R09.02 Hypoxemia; D64.9 Anemia, unspecified; E11.21 Type 2 diabetes mellitus with diabetic nephropathy; E11.22 Type 2 diabetes mellitus with diabetic chronic kidney disease; F41.9 Anxiety disorder, unspecified; E78.5 Hyperlipidemia, unspecified; H54.8 Legal blindness, as defined in USA; I25.10 Atherosclerotic heart disease of native coronary artery without angina pectoris; I45.10 Unspecified right bundle-branch block; Z91.15 Patient's noncompliance with renal dialysis; Z98.61 Coronary angioplasty status; Z99.2 Dependence on renal dialysis
CPT/HCPCS: 36415; 36600; 70450; 71045; 76775; 80048; 80053; 80061; 80074; 81001; 82306; 82570; 82728; 82805; 82962; 83036; 83540; 83550; 83735; 83880; 83935; 83970; 84100; 84156; 84300; 84484; 84550; 85014; 85018; 85025; 85610; 85652; 85730; 87081; 90935; 92928; 93005; 93306; 93458; 93571; 93886; 95819; 96361; 96365; 96375; 99152; 99153; C1874; G0378; J0153; J0696; J0885; J1100; J1642; J1815; J2250; J2405; J7060

== ENCOUNTER 2025-03-27 04:31 | Inpatient (IN) | payer OTHER, MEDICAID ==
[~2025-03-27] VITALS: Ht 152.4 cm; Wt 68.0 kg
[2025-03-27] VITALS (8 sets, daily range): BP systolic 132–151; BP diastolic 63–94; PULSE 82–119; RESP 16–45; TEMP 98.3; O2SAT 93–100
[~2025-03-27 04:31] MED LIST: ATOR40TA52 PO; CILO100T3 PO; GLIP5TAB21 PO; HYDR25TA4 PO; LINA5TAB PO; LISI10TA34 PO; METO25TA5 PO
[2025-03-27] MEDS: FUROSEMIDE 100 MG/10ML VIAL IV ONE (04:48)
[2025-03-27] MEDS: NITROGLYCERIN 50MG/250ML 250 ML IV ONE (04:55)
[2025-03-27 04:58] LABS: Basophils # (auto) 0.1 10 ^3/uL (0-0.2); Basophils % (auto) 0.7 % (0.0-2.0); Eosinophils # (auto) 0.2 10 ^3/uL (0-0.8); Hematocrit 31.9 % (36.0-46.0); Hemoglobin 10.4 g/dL (12.2-16.2); Lymphocytes # (auto) 2.4 10 ^3/uL (0.4-5.4); Lymphocytes % (auto) 16.1 % (10.0-50.0); Mean Corpuscular Hemoglobin 30.5 pg (28.0-32.0); Mean Corpuscular Hgb Conc. 32.7 g/dL (32.0-36.0); Mean Corpuscular Volume 93.4 fL (80.0-100.0); Monocytes # (auto) 1.1 10 ^3/uL (0-1.3); Monocytes % (auto) 7.6 % (0.0-12.0); Neutrophils # (auto) 11.1 10 ^3/uL (1.6-8.6); Neutrophils % (auto) 74.6 % (37.0-80.0); Nucleated Red Blood Cells % 0.1 %; Platelet Count (auto) 291 10^3/uL (140-450); Red Blood Cells 3.41 10^6/uL (4.0-5.20); Red Cell Distribution Width 16.7 % (11.8-14.3); White Blood Cell 14.9 10^3/uL (4.4-10.8)
--- NOTE | 2025-03-27 05:15 | ED.PDOC ---
History of Present Illness HPI Comments 74 y/o F is BIBA c/o shortness of breath. Per EMS, patient woke up with sudden onset of difficulty breathing just prior to arrival. Patient has a history of anemia, MICAELA, CHF, CKF, DM II - with vasculopathy, nephropathy, and neuropathy, HTN, STEMI, and 3xPTCA's. She was found on scene with a SpO2 of 55% on her baseline 4LPM home oxygen, with rales in bilateral lung spangler and a respiratory rate in the mid-30's range. Patient was also found with a tachycardic and hypertensive. NTG paste application and CPAP placement were performed en route with minimal improvement. Upon arrival to ED, patient had a SpO2 of 75% on CPAP, blood pressure of 185/84, respiratory rate of 32, and a pulse rate of 121. She denies recent travel, illness, or sick contact. Patient as denies chest pain, cough, congestion, fever, chills, or further associated symptoms. Chief Complaint: Shortness of Breath Time Seen by MD: 04:30 Primary Care Provider: UNKNOWN Reviewed Notes: Nurses Notes, Medications, Allergies Allergies: Coded Allergies: NO KNOWN ALLERGIES (Unverified , 08/26/19) Home Meds Reported Medications Linagliptin Base (TRADJENTA) 5 Mg Tab, 5 MG PO DAILY, TAB 08/26/19 Glipizide (Glipizide) 5 Mg Tab, 5 MG PO BID for 30 Days, MG 08/26/19 Atorvastatin Calcium (ATORVASTATIN CALCIUM) 40 Mg Tab, 40 MG PO DAILY, TAB 08/26/19 Hydrochlorothiazide (Hydrochlorothiazide) 25 Mg Tab, 12.5 MG PO DAILY for 30 Days, MG 08/26/19 Metoprolol Tartrate (Metoprolol Tartrate) 25 Mg Tab, 25 MG PO BID, TAB 08/26/19 Lisinopril (Lisinopril) 10 Mg Tab, 10 MG PO DAILY for 30 Days, MG 08/26/19 Cilostazol (Cilostazol) 100 Mg Tab, 100 MG PO BID for 30 Days, MG 08/26/19 Information Source: Patient Mode of Arrival: EMS Past Medical History PAST MEDICAL HISTORY: Anemia, CHF, CKF, DM, ME Past Medical History (Other): MICAELA, DM II - with vasculopathy, nephropathy, and neuropathy Surgical History: PTCA (3x) [employer] History: No Pertinent [employer] History Social History Smoker: Non-Smoker Alcohol: Denies ETOH Use Drugs: Denies Drug Use Unable to Obtain due to: Medical Urgency Physical Exam General Appearance: Obese, Severe Distress HEENT: Other (Pupils and face symmetric) Neck: Full Range of Motion, Normal Inspection Respiratory: Accessory Muscle Use, Rales, Respiratory Distress Cardiovascular: Tachycardia Breast Exam: Deferred Gastrointestinal: Non Tender, Soft Genitalia: Deferred Pelvic: Deferred Rectal: Deferred Extremities: Leg edema, Pedal edema Neurologic: Alert (Oriented x4), Other (Moves all extremities. Sensation grossly intact all extremities.) Cerebellar Function: NOT DONE Reflexes: NOT DONE Skin: Dry, Normal Color, Warm Lymphatic: NOT DONE Was a procedure done? Was a procedure done?: No EKG EKG : Comments Sinus rhythm, rate 98, normal intervals, borderline left axis deviation, normal QRS, nonspecific T change. Differential Dx Considerations may include: CHF exacerbation, COPD, ME, PE, URI, PNA, viral syndrome, anxiety, among others X-Ray, Labs, Meds, VS Vital Signs Date Time Temp Pulse Resp B/P (MAP) Pulse Ox O2 Delivery O2 Flow Rate FiO2 03/27/25 06:20 96 33 131/75 (93) 98 03/27/25 06:15 96 34 141/78 (99) 98 03/27/25 06:12 98 03/27/25 06:10 98 28 143/78 (99) 98 03/27/25 06:05 99 36 145/84 (104) 98 03/27/25 06:00 101 45 151/82 (105) 99 03/27/25 05:55 101 42 146/86 (106) 99 03/27/25 05:50 103 39 144/80 (101) 98 03/27/25 05:45 102 38 149/86 (107) 98 03/27/25 05:40 105 46 150/88 (108) 98 03/27/25 05:37 105 151/94 96 Facial BiPAP Mask 50 03/27/25 05:35 104 43 150/88 (108) 98 03/27/25 05:30 105 43 157/86 (109) 97 03/27/25 05:25 104 43 157/87 (110) 98 03/27/25 05:20 151/94 03/27/25 05:20 109 19 151/94 (113) 98 03/27/25 05:15 109 15 163/88 (113) 98 03/27/25 05:15 163/88 03/27/25 05:10 181/93 03/27/25 05:10 110 22 181/93 (122) 98 03/27/25 05:05 174/91 03/27/25 05:05 112 45 174/91 (118) 97 03/27/25 05:00 114 43 182/97 (125) 95 03/27/25 05:00 182/97 03/27/25 04:55 119 198/106 Facial BiPAP Mask 60 03/27/25 04:55 115 41 187/93 (124) 96 03/27/25 04:55 187/93 03/27/25 04:48 191/99 03/27/25 04:31 119 45 97 Bi-Pap+ 10 50 50 03/27/25 04:31 97.1 119 45 198/106 (136) 97 97.1 03/27/25 04:31 98.1 121 32 185/84 (117) 75 98.1 Lab Test 03/27/25 05:59 03/27/25 05:25 03/27/25 05:13 03/27/25 04:43 Range/Units Lactic Acid Level Pending Troponin I High Sensitivity Pending 343 *H </=34 ng/L Blood Gas Specimen Type Arterial Blood Gas Sample Site Right radial Blood Gas Patient Temperature 37.0 Arterial Blood Date Drawn [id number] Arterial Blood pH 7.308 L 7.350-7.450 Arterial Blood Partial Pressure CO2 35.3 32.0-45.0 mmHg Arterial Blood Partial Pressure O2 97.7 83.0-108.0 mmHg Arterial Blood HCO3 17.3 L 21.0-28.0 mmol/L Arterial Blood Oxygen Saturation 96.5 94.0-98.0 % Arterial Blood Base Excess -8.2 L -2.0-3.0 mmol/L Arterial Blood Oxyhemoglobin 95.2 94.0-98.0 % Arterial Blood Carboxyhemoglobin 0.8 0.5-1.5 % Arterial Blood Methemoglobin 0.5 0.0-1.5 % Dagoberto Test Yes Blood Gas Total Hemoglobin 10.50 L 12.0-16.0 g/dL Blood Gas Modality Mask - bipap FiO2 % 50.0 Urine Color Pending Urine Clarity Pending Urine pH Pending Urine Specific [place] Pending Urine Protein Pending Urine Ketones Pending Urine Blood Pending Urine Nitrite Pending Urine Bilirubin Pending Urine Urobilinogen Pending Urine Leukocyte Esterase Pending Urine RBC Pending Urine Microscopic WBC Pending Urine Squamous Epithelial Cells Pending Urine Bacteria Pending Urine Glucose Pending White Blood Count 14.9 H 4.4-10.8 10^3/uL Red Blood Count 3.41 L 4.0-5.20 10^6/uL Hemoglobin 10.4 L 12.2-16.2 g/dL Hematocrit 31.9 L 36.0-46.0 % Mean Corpuscular Volume 93.4 80.0-100.0 fL Mean Corpuscular Hemoglobin 30.5 28.0-32.0 pg Mean Corpuscular Hemoglobin Concent 32.7 32.0-36.0 g/dL Red Cell Distribution Width 16.7 H 11.8-14.3 % Platelet Count 291 140-450 10^3/uL Mean Platelet Volume 8.1 6.9-10.8 fL Neutrophils (%) (Auto) 74.6 37.0-80.0 % Lymphocytes (%) (Auto) 16.1 10.0-50.0 % Monocytes (%) (Auto) 7.6 0.0-12.0 % Eosinophils (%) (Auto) 1.0 0.0-7.0 % Basophils (%) (Auto) 0.7 0.0-2.0 % Neutrophils # (Auto) 11.1 H 1.6-8.6 10 ^3/uL Lymphocytes # (Auto) 2.4 0.4-5.4 10 ^3/uL Monocytes # (Auto) 1.1 0-1.3 10 ^3/uL Eosinophils # (Auto) 0.2 0-0.8 10 ^3/uL Basophils # (Auto) 0.1 0-0.2 10 ^3/uL Nucleated Red Blood Cells 0.1 % Sodium Level 136 136-145 mmol/L Potassium Level 4.9 3.5-5.1 mmol/L Chloride Level 108 H 98-107 mmol/L Carbon Dioxide Level 18 L 20-31 mmol/L Anion Gap 10 5-15 Blood Urea Nitrogen 49 H 9-23 mg/dL Creatinine 3.29 H 0.550-1.02 mg/dL Glomerular Filtration Rate Calc 14 >90 mL/min BUN/Creatinine Ratio 14.9 10.0-20.0 Serum Glucose 174 H 74-106 mg/dL Calcium Level 10.5 H 8.7-10.4 mg/dL B-Type Natriuretic Peptide 507.00 0-100 pg/mL Current Medications Medications (Trade) Dose Ordered Sig/Rosa Route Start Time Stop Time Status Last Admin Nitroglycerin 250 ml @ 1.5 mls/hr Q24H ONCE IV 03/27/25 04:45 03/28/25 04:44 03/27/25 04:55 Furosemide (Lasix Injection) 80 mg ONCE ONCE IV 03/27/25 04:45 03/27/25 04:46 DC 03/27/25 04:48 PROCEDURE(s): CXRP - CHEST PORTABLE REASON: sob ORDER NUMBER(s): [id number], ACCESSION NUMBER(s): [id number] EXAM: XR Chest, 1 View CLINICAL INDICATION: sob TECHNIQUE: Frontal view of the chest. COMPARISON: None FINDINGS: LUNGS AND PLEURAL SPACES: Interstitial and patchy airspace disease. No consolidation. No pneumothorax. HEART: Unremarkable. No cardiomegaly. MEDIASTINUM: Unremarkable. Normal mediastinal contour. BONES/JOINTS: Unremarkable. No acute fracture. OTHER FINDINGS: . IMPRESSION: Interstitial and patchy airspace disease. X-Ray, Labs, Meds, VS Comment 74-year-old female with history of anemia, MICAELA, CHF, CKF, DM II, vasculopathy, nephropathy, and neuropathy, HTN, STEMI status post PTCA x3 presenting with severe shortness of breath requiring BiPAP Vitals remarkable for heart rate 110, respiratory rate 22, BP 181/93 Rhythm strip independently interpreted by me: Sinus tach, rate 110, no ectopy. Chest x-ray IMPRESSION: Interstitial and patchy airspace disease. CBC remarkable for WBC 14.9, basic metabolic panel remarkable for chloride 108, CO2 18, BUN 49, creatinine 3.29, troponin 343, BNP 507 Patient treated with the following in the ED: Continued on BiPAP Lasix 80 mg IV, nitroglycerin infusion started at 5 mcg per minute and titrated to improvement, aspirin 325 mg p.o.. Patient is currently at 10 micrograms/minute. Heart rate is 105, BP is 151/94, on BiPAP at 50% FiO2. Case discussed with Dr. Dixon at [facility], who agreed patient is not currently stable for transfer and authorized us to admit the patient here. Authorization [id number] Time of 1ST Reevaluation: 05:00 Reevaluation 1ST: Unchanged Time of 2ND Reevaluation: 05:51 Reevaluation 2ND: Improved Patient Education/Counseling: Diagnosis, Treatment Family Education/Counseling: No Family Present Departure 1 Departure Time of Disposition: 06:00 Impression: Primary Impression: Acute and chronic respiratory failure Additional Impressions: CHF exacerbation Qualified Codes: I50.9 - Heart failure, unspecified Non-STEMI (non-ST elevated myocardial infarction) Disposition: ADMITTED INPATIENT Admit to: [facility] Condition: Guarded Critical Care Note Critical Care Time?: Yes (45 min-critical care time only) Critical care comment: Critical care time including multiple bedside re-evaluations, review of lab and imaging studies, and discussion of the case with the consulting and admitting providers. Patient is high risk for hemodynamic and/or respiratory decompensation. Stability Stability form required: No Heart Score Heart Score: Heart Score Response (Comments) Value History N/A 0 EKG N/A 0 Age N/A 0 Risk Factors N/A 0 Troponin N/A 0 Total 0 I personally scribed for PACO GUERRIER MD ([email or web address]) on 03/27/25 at 05:15. Electronically submitted by Peter Busby ([email or web address]). PACO GUERRIER MD March 27, 2025 05:15
[2025-03-27 05:18] LABS: Anion Gap 10 (5-15); Potassium 4.9 mmol/L (3.5-5.1); Sodium 136 mmol/L (136-145)
--- NOTE | 2025-03-27 05:21 | DVH ---
EXAM: XR Chest, 1 View CLINICAL INDICATION: sob TECHNIQUE: Frontal view of the chest. COMPARISON: None FINDINGS: LUNGS AND PLEURAL SPACES: Interstitial and patchy airspace disease. No consolidation. No pneumoth orax. HEART: Unremarkable. No cardiomegaly. MEDIASTINUM: Unremarkable. Normal mediastinal contour. BONES/JOINTS: Unremarkable. No acute fracture. OTHER FINDINGS: . IMPRESSION: Interstitial and patchy airspace disease.
[2025-03-27 05:22] LABS: Calcium 10.5 mg/dL (8.7-10.4); Carbon Dioxide 18 mmol/L (20-31); Chloride 108 mmol/L (98-107)
[2025-03-27 05:24] LABS: BUN/Creatinine Ratio 14.9 (10.0-20.0)
[2025-03-27 05:36] LABS: Base Excess -8.2 mmol/L (-2.0-3.0)
[2025-03-27 05:51] LABS: Blood Urea Nitrogen 49 mg/dL (9-23); Glucose 174 mg/dL (74-106)
--- NOTE | 2025-03-27 06:24 | ECG ---
[facility] Test Date: 2025-03-27 Test Time: 06:12:55 Pat Name: PATRICIA CARBALLO Department: ED Room: Gender: F Manager Completions: ASHLEY : 1950 Requested By: PACO LAST Order Number: [id number] Reading MD: Measurements Intervals [place] Rate: 98 P: 57 FL: 145 QRS: 9 QRSD: 90 T: 43 QT: 354 QTc: 453 Interpretive Statements Sinus rhythm Abnormal R-wave progression, early transition Please click the below link to view image of tracing.
[2025-03-27 07:01] LABS: Urine Amorphous Crystal FEW /hpf (None Seen); Urine Bacteria FEW /hpf (None Seen); Urine Blood 2+ /uL (Negative); Urine Clarity Turbid (Clear); Urine Color Colorless (Yellow); Urine Mucus FEW (None Seen); Urine Protein, UAD 1+ (Negative); Urine Squamous Epithelial Cell FEW /hpf (<5); Urine Urobilinogen Normal (Negative); Urine WBC 70 /HPF (0-5); Urine WBC Clumps PRESENT /hpf (None Seen); Urine pH 5.5 (5.0-9.0)
--- NOTE | 2025-03-27 07:54 | DVHHP2 ---
History of Present Illness Reason for Visit: Shortness of breath History of Present Illness Yancy Miller is a 74-year-old female with past medical history of diabetes, chronic kidney disease, anemia, hyperlipidemia, CHF, CA with stents placed, and blind, who came in due to shortness of breath. On assessment patient is on BiPAP, daughter is at the bedside. Patient lives with daughter. The daughter states that her mother woke up about 0400 in severe respiratory distress, stating she can't breath. EMS was called, when they arrived her O2 saturation was in the 50's. She was placed on CPAP and brought to the hospital. On her arrival to ER her O2 saturation was around 75%. She was placed on BiPAP 100%. She was tachypneic, increased work of breathing, using accessory muscles, and with elevated blood pressure. Daughter states that yesterday afternoon she noticed her mother's breathing seemed fast. Patient was started on nitro drip for hypertension. Patient denies any chest pain, fatigue, or prior shortness of breath. August of 2019 she had a STEMI with stents placed. At that time she was sent home with oxygen, but she has been weaned off for about 3 years. 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 Patient walks minimally around the house with a walker. She has chronic kidney disease, for which she follows with a sales project administrator at [employer]. ECHO completed in 2018 showed an EF of 35%. Cardiovascular: CAD, CHF, CA (August 2019 3 stents placed), hyperipidemia Renal/: Chronic renal insuff Endocrine: Diabetes Past Surgical History: Other (PTCA August 2019) Smoke: No ALCOHOL: none Drugs: None Lives: with Family Domestic Violence: Neg Review of Systems Constitutional: No: Fever, Chills, Sweats, Weakness, Malaise, Other Eyes: No: Pain, Vision change, Conjunctivae inflammation, Eyelid inflammation, Other, Redness ENT: No: Ear pain, Ear discharge, Nose pain, Nose discharge, Nose congestion, Mouth pain, Mouth swelling, Throat pain, Throat swelling, Other Respiratory: Shortness of breath, SOB with excertion, Wheezing; No: Cough, Dry, Hemoptysis, Pleuritic Pain, Sputum, Wheezing, Other Cardiovascular: No: Chest Pain, Palpitations, Orthopnea, Paroxysmal Noc. Dyspnea, Edema, Lt Headedness, Other Gastrointestinal: No: Nausea, Vomiting, Abdominal Pain, Diarrhea, Constipation, Melena, Hematochezia, Other Genitourinary: No Dysuria, No Frequency, No Incontinence, No Hematuria, No Retention, No Other Musculoskeletal: No: other, neck pain, shoulder pain, arm pain, back pain, hand pain, leg pain, foot pain Skin: No: Rash, Lesions, Jaundice, Bruising, Other Neurological: No: Weakness, Numbness, Incoordination, Change in speech, Confusion, Seizures, Other Allergies: Coded Allergies: NO KNOWN ALLERGIES (Unverified , 08/26/19) Exam Vital Signs Vital Signs Date Time Temp Pulse Resp B/P (MAP) Pulse Ox O2 Delivery O2 Flow Rate FiO2 03/27/25 07:45 90 143/78 96 Facial BiPAP Mask 50 03/27/25 07:00 97.8 28 97.8 03/27/25 04:31 10 General Appearance: Alert, Oriented X3, Cooperative, moderate distress HEENT: Atraumatic, PERRLA Respiratory: Other (bilateral rales) Cardiovascular: Regular rate, Normal S1, Normal S2 Abdominal: Normal bowel sounds, Soft, No tenderness, No hepatospenomegaly Extremities: No clubbing, No cyanosis, Normal pulses, Other (bilateral edema +3 lower extremities) Skin: No rashes, No breakdown, No significant lesion Neuro: Normal speech, Normal tone Psych/Mental Status: Mental status NL, Mood NL Labs/Xrays Labs Test 03/27/25 07:46 03/27/25 05:59 03/27/25 05:25 03/27/25 05:13 Range/Units Lactic Acid Level 0.8 0.4-2.0 mmol/L Blood Gas Specimen Type Arterial Blood Gas Sample Site Right radial Blood Gas Patient Temperature 37.0 Arterial Blood Date Drawn [id number] Arterial Blood pH 7.308 L 7.350-7.450 Arterial Blood Partial Pressure CO2 35.3 32.0-45.0 mmHg Arterial Blood Partial Pressure O2 97.7 83.0-108.0 mmHg Arterial Blood HCO3 17.3 L 21.0-28.0 mmol/L Arterial Blood Oxygen Saturation 96.5 94.0-98.0 % Arterial Blood Base Excess -8.2 L -2.0-3.0 mmol/L Arterial Blood Oxyhemoglobin 95.2 94.0-98.0 % Arterial Blood Carboxyhemoglobin 0.8 0.5-1.5 % Arterial Blood Methemoglobin 0.5 0.0-1.5 % Dagoberto Test Yes Blood Gas Total Hemoglobin 10.50 L 12.0-16.0 g/dL Blood Gas Modality Mask - bipap FiO2 % 50.0 Urine Color Colorless Yellow Urine Clarity Turbid H Clear Urine pH 5.5 5.0-9.0 Urine Specific [place] 1.010 1.001-1.035 Urine Protein 1+ H Negative Urine Ketones Negative Negative Urine Blood 2+ H Negative /uL Urine Nitrite Negative Negative Urine Bilirubin Negative Negative Urine Urobilinogen Normal Negative mg/dL Urine Leukocyte Esterase 2+ Negative /uL Urine RBC 3 0 - 4 /hpf Urine WBC Clumps Present None Seen /hpf Urine Microscopic WBC 70 H 0-5 /HPF Urine Squamous Epithelial Cells Few <5 /hpf Urine Amorphous Crystals Few None Seen /hpf Urine Bacteria Few H None Seen /hpf Urine Mucus Few None Seen Urine Glucose 1+ H Normal mg/dL Test 03/27/25 04:43 Range/Units White Blood Count 14.9 H 4.4-10.8 10^3/uL Red Blood Count 3.41 L 4.0-5.20 10^6/uL Hemoglobin 10.4 L 12.2-16.2 g/dL Hematocrit 31.9 L 36.0-46.0 % Mean Corpuscular Volume 93.4 80.0-100.0 fL Mean Corpuscular Hemoglobin 30.5 28.0-32.0 pg Mean Corpuscular Hemoglobin Concent 32.7 32.0-36.0 g/dL Red Cell Distribution Width 16.7 H 11.8-14.3 % Platelet Count 291 140-450 10^3/uL Mean Platelet Volume 8.1 6.9-10.8 fL Neutrophils (%) (Auto) 74.6 37.0-80.0 % Lymphocytes (%) (Auto) 16.1 10.0-50.0 % Monocytes (%) (Auto) 7.6 0.0-12.0 % Eosinophils (%) (Auto) 1.0 0.0-7.0 % Basophils (%) (Auto) 0.7 0.0-2.0 % Neutrophils # (Auto) 11.1 H 1.6-8.6 10 ^3/uL Lymphocytes # (Auto) 2.4 0.4-5.4 10 ^3/uL Monocytes # (Auto) 1.1 0-1.3 10 ^3/uL Eosinophils # (Auto) 0.2 0-0.8 10 ^3/uL Basophils # (Auto) 0.1 0-0.2 10 ^3/uL Nucleated Red Blood Cells 0.1 % Sodium Level 136 136-145 mmol/L Potassium Level 4.9 3.5-5.1 mmol/L Chloride Level 108 H 98-107 mmol/L Carbon Dioxide Level 18 L 20-31 mmol/L Anion Gap 10 5-15 Blood Urea Nitrogen 49 H 9-23 mg/dL Creatinine 3.29 H 0.550-1.02 mg/dL Glomerular Filtration Rate Calc 14 >90 mL/min BUN/Creatinine Ratio 14.9 10.0-20.0 Serum Glucose 174 H 74-106 mg/dL Calcium Level 10.5 H 8.7-10.4 mg/dL B-Type Natriuretic Peptide 507.00 0-100 pg/mL EXAM: XR Chest, 1 View FINDINGS: LUNGS AND PLEURAL SPACES: Interstitial and patchy airspace disease. No consolidation. No pneumothorax. HEART: Unremarkable. No cardiomegaly. MEDIASTINUM: Unremarkable. Normal mediastinal contour. BONES/JOINTS: Unremarkable. No acute fracture. OTHER FINDINGS: . IMPRESSION: Interstitial and patchy airspace disease. Assessment/Plan Assessment/Plan Assessment: CHF exacerbation, Elevated troponin, Hypertension, Hyperlipidemia, Diabetes, Anemia, Plan: Admit to ICU, Cardiology consult, Nitro drip, IV antibiotics, IV Lasix, BiPAP, Breathing treatments as needed, Supplemental oxygen as needed, COVID and influenza swabs, Consider nephrology consult if kidney function decreases, Home medications reconciled, Plan discussed with: Patient, Daughter Date of Service: March 27, 2025 Billing Provider: JULIA OWEN Common Visit Codes: [id number] INP/OBS CARE (HIGH) JULIA OWEN March 27, 2025 07:54
[2025-03-27] MEDS ORDERED: ONDANSETRON HCL 4 MG/2 ML VIAL IV PRN (08:00)
[2025-03-27] MEDS ORDERED: MORPHINE SULFATE INJ 2 MG/ml SYRG IV PRN (08:00)
[2025-03-27] MEDS ORDERED: ACETAMINOPHEN 325 MG TAB PO PRN (08:00)
[2025-03-27] MEDS ORDERED: DOCUSATE SOD 100 MG CAP PO PRN (08:00)
[2025-03-27] MEDS ORDERED: NITROGLYCERIN 0.4 MG SL TAB SL PRN (08:00)
[2025-03-27] MEDS: ASPirin 325 MG TAB PO ONE (08:03)
[2025-03-27] MEDS ORDERED: ALBUTEROL SULF 2.5 MG/0.5ML(0.5%) NEB SOLN NEB PRN (08:45)
[2025-03-27] MEDS ORDERED: DEXTROSE (50%) 50ML SYRG IV PRN ×2 (08:45→14:00)
[2025-03-27] MEDS ORDERED: IPRATROPIUM BROM 0.5 MG/2.5ML INH SOL NEB PRN (08:45)
[2025-03-27] MEDS ORDERED: CAL025T PO (09:15)
[2025-03-27] MEDS ORDERED: SITA25TA PO (09:15)
[2025-03-27] MEDS ORDERED: MULT-1058 PO (09:15)
[2025-03-27] MEDS ORDERED: MIRT1TAB38 PO (09:15)
[2025-03-27] MEDS ORDERED: HYDR25TA87 PO (09:15)
[2025-03-27] MEDS ORDERED: HYDR1TAB97 PO (09:15)
[2025-03-27] MEDS ORDERED: AMLO1TAB22 PO (09:15)
[2025-03-27] MEDS ORDERED: FURO20TA4 PO (09:15)
[2025-03-27] MEDS ORDERED: ASPI81CH49 PO (09:15)
[2025-03-27] MEDS ORDERED: FAMO10TA PO (09:15)
[2025-03-27] MEDS ORDERED: CARV12.544 PO (09:15)
[2025-03-27] MEDS ORDERED: SODI650T PO (09:15)
[2025-03-27] MEDS: cefTRIAXone 1GM/50ML D5W 50 ML IV SCH (09:18)
[2025-03-27] MEDS ORDERED: FAMOTIDINE 10 MG PO SCH (10:00)
[2025-03-27] MEDS ORDERED: PATIENTS OWN MEDICATION (Atorvastatin Calcium 40 MG) PO SCH (10:00)
[2025-03-27] MEDS ORDERED: PATIENTS OWN MEDICATION (Aspirin 81 MG) PO SCH (10:00)
[2025-03-27] MEDS: AZITHROMYCIN 500MG/ 250ML 250 ML IV SCH (10:08)
[2025-03-27] MEDS: MULTIPLE VITAMINS W/ MINERALS TAB PO SCH (10:09)
[2025-03-27] MEDS: amLODIPine BESYLATE 5 MG TAB PO SCH (10:09)
[2025-03-27] MEDS: glipiZIDE 5 MG TAB PO SCH (10:09)
[2025-03-27] MEDS: CARVEDILOL 12.5 MG TAB PO SCH (10:10)
[2025-03-27] MEDS: CALCITRIOL 0.25 MCG CAP PO SCH (10:10)
[2025-03-27] MEDS: CILOSTAZOL 100 MG TAB PO SCH (10:16)
[2025-03-27 10:44] LABS: Rapid Influenza A Negative (Negative); Rapid Influenza B Negative (Negative)
[2025-03-27 10:45] LABS: COVID19 ANTIGEN SOFIA FIA NEGATIVE (NEGATIVE)
[2025-03-27] MEDS: MIRTAZAPINE PO SCH (11:28)
[2025-03-27] MEDS: InsuLIN REG 1unit/0.01ml Soln (100units/ml) SC SCH ×3 (11:30→22:00)
[2025-03-27] MEDS: ACCU-CHEK COMFORT CURVE STRIP VI SCH ×2 (11:43→16:59)
[2025-03-27] MEDS ORDERED: SODIUM BICARBONATE 650 MG TAB PO SCH (14:00)
[2025-03-27] MEDS ORDERED: SODIUM BICARBONATE PO SCH (14:00)
[2025-03-27] MEDS: hydrALAZINE HCL 25 MG TAB PO SCH (14:00)
--- NOTE | 2025-03-27 14:04 | DVHPN2 ---
Progress Note Date Seen: March 27, 2025 Medical Necessity Reason Pt with a Central, PICC or Fol: Yes The following are medically ne: Stevens Catheter Reason for stevens catheter: Strict I&O Subjective Patient reports: No new complaints Review of Systems: HEENT:Normal, CVS:Normal, RESPIRATORY:Normal, GI:Normal, :Normal, MSK:Normal, NEURO:Normal Objective vital signs Vital Sign Date Time Temp Pulse Resp B/P (MAP) Pulse Ox O2 Delivery O2 Flow Rate FiO2 03/27/25 13:00 77 14 111/53 (72) 95 03/27/25 09:41 2.0 28 03/27/25 09:40 Nasal Cannula 03/27/25 07:30 98.1 98.1 Total Intake and Output 03/26/25 03/26/25 03/27/25 15:00 23:00 07:00 Intake Total 6 ml Output Total 400 ml Balance -394 ml medications Current Medications Medications Dose Ordered Sig/Rosa Route Start Time Stop Time Status Last Admin Dose Admin Acetaminophen/ Hydrocodone Bitart 1 tab Q4HP PRN PO 03/27/25 08:00 Ondansetron HCl 4 mg Q4HP PRN IV 03/27/25 08:00 Docusate Sodium 100 mg BIDPRN PRN PO 03/27/25 08:00 Acetaminophen 650 mg Q6HP PRN PO 03/27/25 08:00 Nitroglycerin 0.4 mg Q5MINP PRN SL 03/27/25 08:00 Morphine Sulfate 2 mg Q30M PRN IV 03/27/25 08:00 Azithromycin 250 ml @ 125 mls/hr DAILY IV 03/27/25 10:00 03/27/25 10:08 125 MLS/HR Ceftriaxone Sodium 50 ml @ 100 mls/hr DAILY@09 IV 03/27/25 09:00 03/27/25 09:18 100 MLS/HR Furosemide 40 mg BIDD IV 03/27/25 18:00 Diagnostic Test (Pha) 1 strip ACHS 03/27/25 11:30 03/27/25 11:43 1 STRIP Insulin Human Regular HS SC 03/27/25 22:00 Insulin Human Regular AC SC 03/27/25 11:30 Dextrose 50 ml UD PRN IV 03/27/25 08:45 Ipratropium [place] 0.5 mg Q4HPRN PRN NEB 03/27/25 08:45 Albuterol 2.5 mg Q4HPRN PRN NEB 03/27/25 08:45 Cilostazol 100 mg BID PO 03/27/25 10:00 03/27/25 10:16 100 MG Glipizide 5 mg BID PO 03/27/25 10:00 03/27/25 10:09 5 MG Patient Own Medication 40 mg DAILY PO 03/27/25 10:00 UNV Calcitriol 0.25 mcg DAILY PO 03/27/25 10:00 03/27/25 10:10 0.25 MCG Amlodipine Besylate 5 mg DAILY PO 03/27/25 10:00 03/27/25 10:09 5 MG Carvedilol 12.5 mg BID PO 03/27/25 10:00 03/27/25 10:10 12.5 MG Hydralazine HCl 25 mg TID PO 03/27/25 14:00 Multivitamins/ Minerals 1 tab DAILY PO 03/27/25 10:00 03/27/25 10:09 1 TAB Patient Own Medication 81 mg DAILY PO 03/27/25 10:00 UNV Patient Own Medication 10 mg DAILY PO 03/27/25 10:00 UNV Patient Own Medication 1 tab DAILY PO 03/27/25 10:00 Patient Own Medication 1 tab DAILY PO 03/27/25 10:00 03/27/25 11:28 1 TAB Patient Own Medication 3 tab TID PO 03/27/25 14:00 UNV Atorvastatin Calcium 40 mg HS PO 03/27/25 22:00 Aspirin 81 mg DAILY PO 03/28/25 10:00 Famotidine 10 mg DAILY PO 03/28/25 10:00 Sodium Bicarbonate 1,950 mg TID PO 03/27/25 14:00 Examination: GENERAL:Normal, HEENT:Normal, NECK:Normal, LUNGS:Normal, LUNGS:Abnormal (was on bipap), CVS:Normal, ABDOMEN:Normal, MSK:Normal, SKIN:Normal, NEURO:Normal, :Normal laboratory and microbiology Laboratory Tests 03/27/25 04:43 Test 03/27/25 04:43 Range/Units Serum Glucose 174 H 74-106 mg/dL Problem List/Assessment/Plan Problem List/Assessment/Plan #1 acute resp failure: wean oxygen as tolerated #2 acute on chronic systolic /diastolic heart failure: lasix iv #3 dm: ssi #4 hypertensive emergency: improved #5 acute on chronic renal failure ?vasomotor nephropathy #6 uti/sepsis: iv rocephin, culture #7 blindness bilateral #8 cad s/p stents #9 hyperlipidemia #10 nstemi ?type 2 Plan discussed with: Patient, Daughter My Orders My Orders Orders - JEREMIAS JORDAN MD Procedure Category Date Status Time Transfer Orders XFER 03/27/25 Transmitted 13:05 Azithromycin Tablet PHA 03/28/25 Transmitted (Zithromax Tablet) 10:00 Urine Bacterial ALESSIA 03/27/25 Transmitted Culture 13:56 Pt Request For Service PT 03/27/25 Logged 13:56 Glucose Blood PHA 03/27/25 Transmitted (Accu-Chek Comfort 17:00 Mild Sliding Scale PHA 03/27/25 Transmitted 17:00 Dextrose 50% Syringe PHA 03/27/25 Transmitted 14:00 Complete Blood Count LAB 03/28/25 Verified 06:00 Comprehensive LAB 03/28/25 Verified Metabolic Panel 06:00 Hemoglobin A1c LAB 03/28/25 Verified 06:00 Chest Portable XY 03/28/25 Logged 06:00 Critical Care Time (mins): 39 (critical care time excluding procedures was 39 mins) Date of Service: March 27, 2025 Billing Provider: JEREMIAS JORDAN MD Common Visit Codes: [id number] CARE 30-74 MIN JEREMIAS JORDAN MD March 27, 2025 14:04
[2025-03-27] MEDS: FUROSEMIDE 40 MG/4 ML VIAL IV SCH (16:58)
[2025-03-27] MEDS: ATORVASTATIN 20 MG TAB PO SCH (23:07)
[2025-03-27] MEDS: HYDROcodone-ACET 5/325MG TAB PO PRN (23:19)
[2025-03-28] VITALS (9 sets, daily range): BP systolic 126–145; BP diastolic 63–71; PULSE 78–87; RESP 18–19; TEMP 36.4; O2SAT 93–98
[2025-03-28 06:20] LABS: Basophils # (auto) 0 10 ^3/uL (0-0.2); Basophils % (auto) 0.6 % (0.0-2.0); Eosinophils # (auto) 0.2 10 ^3/uL (0-0.8); Eosinophils % (auto) 2.7 % (0.0-7.0); Hematocrit 25.3 % (36.0-46.0); Hemoglobin 8.8 g/dL (12.2-16.2); Lymphocytes # (auto) 1.5 10 ^3/uL (0.4-5.4); Lymphocytes % (auto) 18.2 % (10.0-50.0); Mean Corpuscular Hemoglobin 31.6 pg (28.0-32.0); Mean Corpuscular Hgb Conc. 34.6 g/dL (32.0-36.0); Mean Corpuscular Volume 91.4 fL (80.0-100.0); Monocytes % (auto) 12.1 % (0.0-12.0); Neutrophils # (auto) 5.4 10 ^3/uL (1.6-8.6); Neutrophils % (auto) 66.4 % (37.0-80.0); Platelet Count (auto) 237 10^3/uL (140-450); Red Blood Cells 2.77 10^6/uL (4.0-5.20); Red Cell Distribution Width 16.2 % (11.8-14.3); White Blood Cell 8.1 10^3/uL (4.4-10.8)
[2025-03-28 06:38] LABS: Alanine Aminotransferase 10 U/L (7-40); Albumin 3.6 g/dL (3.2-4.8); Alkaline Phosphatase 74 U/L (46-116); Anion Gap 11 (5-15); Aspartate Aminotransferase 13 U/L (13-40); BUN/Creatinine Ratio 15.1 (10.0-20.0); Bilirubin, Total 0.6 mg/dL (0.2-1.0); Calcium 10.3 mg/dL (8.7-10.4); Sodium 138 mmol/L (136-145); Total Protein 6.6 g/dL (5.7-8.2)
[2025-03-28 06:41] LABS: Blood Urea Nitrogen 59 mg/dL (9-23); Carbon Dioxide 20 mmol/L (20-31); Chloride 107 mmol/L (98-107); Glucose 73 mg/dL (74-106)
--- NOTE | 2025-03-28 07:23 | DVH ---
EXAM: XR Chest, 1 View CLINICAL INDICATION: chf TECHNIQUE: Frontal view of the chest. COMPARISON: XY CHEST PORTABLE on DOS: 03/27/25 FINDINGS: LUNGS AND PLEURAL SPACES: See below. HEART: Cardiomegaly with mild congestion. MEDIASTINUM: Unremarkable. Normal mediastinal contour. BONES/JOINTS: Unremarkable. No acute fracture. OTHER FINDINGS: . IMPRESSION: Cardiomegaly with mild congestion.
[2025-03-28] MEDS: ASPirin-EC 81 mg tab PO SCH (10:26)
[2025-03-28] MEDS: AZITHROMYCIN 250 MG TAB PO SCH (10:27)
[2025-03-28] MEDS: FAMOTIDINE 20 MG TAB PO SCH (10:27)
--- NOTE | 2025-03-28 10:48 | DVHDS2 ---
Discharge Summary Date of Admission March 27, 2025 at 07:48 Date of Discharge: March 28, 2025 Labs/Diagnostic Data: Laboratory Results Test 03/28/25 05:36 03/28/25 05:06 03/27/25 09:18 03/27/25 07:46 POC Glucose 73 mg/dl (70-106) White Blood Count 8.1 10^3/uL (4.4-10.8) Red Blood Count 2.77 10^6/uL (4.0-5.20) Hemoglobin 8.8 g/dL (12.2-16.2) Hematocrit 25.3 % (36.0-46.0) Mean Corpuscular Volume 91.4 fL (80.0-100.0) Mean Corpuscular Hemoglobin 31.6 pg (28.0-32.0) Mean Corpuscular Hemoglobin Concent 34.6 g/dL (32.0-36.0) Red Cell Distribution Width 16.2 % (11.8-14.3) Platelet Count 237 10^3/uL (140-450) Mean Platelet Volume 8.2 fL (6.9-10.8) Neutrophils (%) (Auto) 66.4 % (37.0-80.0) Lymphocytes (%) (Auto) 18.2 % (10.0-50.0) Monocytes (%) (Auto) 12.1 % (0.0-12.0) Eosinophils (%) (Auto) 2.7 % (0.0-7.0) Basophils (%) (Auto) 0.6 % (0.0-2.0) Neutrophils # (Auto) 5.4 10 ^3/uL (1.6-8.6) Lymphocytes # (Auto) 1.5 10 ^3/uL (0.4-5.4) Monocytes # (Auto) 1.0 10 ^3/uL (0-1.3) Eosinophils # (Auto) 0.2 10 ^3/uL (0-0.8) Basophils # (Auto) 0 10 ^3/uL (0-0.2) Nucleated Red Blood Cells 0.0 % Sodium Level 138 mmol/L (136-145) Potassium Level 4.0 mmol/L (3.5-5.1) Chloride Level 107 mmol/L (98-107) Carbon Dioxide Level 20 mmol/L (20-31) Anion Gap 11 (5-15) Blood Urea Nitrogen 59 mg/dL (9-23) Creatinine 3.90 mg/dL (0.550-1.02) Glomerular Filtration Rate Calc 11 mL/min (>90) BUN/Creatinine Ratio 15.1 (10.0-20.0) Serum Glucose 73 mg/dL (74-106) Hemoglobin A1c 6.3 % A1C (<5.7) Calcium Level 10.3 mg/dL (8.7-10.4) Total Bilirubin 0.6 mg/dL (0.2-1.0) Aspartate Amino Transferase (AST) 13 U/L (13-40) Alanine Aminotransferase (ALT) 10 U/L (7-40) Alkaline Phosphatase 74 U/L (46-116) Total Protein 6.6 g/dL (5.7-8.2) Albumin 3.6 g/dL (3.2-4.8) Influenza Type A Antigen Negative (Negative) Influenza Type B Antigen Negative (Negative) SARS-CoV-2 Antigen (Rapid) Negative (NEGATIVE) Troponin I High Sensitivity 359 ng/L (</=34) Test 03/27/25 05:59 03/27/25 05:25 03/27/25 05:13 03/27/25 04:43 Lactic Acid Level 0.8 mmol/L (0.4-2.0) Blood Gas Specimen Type Arterial Blood Gas Sample Site Right radial Blood Gas Patient Temperature 37.0 Arterial Blood Date Drawn [id number] Arterial Blood pH 7.308 (7.350-7.450) Arterial Blood Partial Pressure CO2 35.3 mmHg (32.0-45.0) Arterial Blood Partial Pressure O2 97.7 mmHg (83.0-108.0) Arterial Blood HCO3 17.3 mmol/L (21.0-28.0) Arterial Blood Oxygen Saturation 96.5 % (94.0-98.0) Arterial Blood Base Excess -8.2 mmol/L (-2.0-3.0) Arterial Blood Oxyhemoglobin 95.2 % (94.0-98.0) Arterial Blood Carboxyhemoglobin 0.8 % (0.5-1.5) Arterial Blood Methemoglobin 0.5 % (0.0-1.5) Dagoberto Test Yes Blood Gas Total Hemoglobin 10.50 g/dL (12.0-16.0) Blood Gas Modality Mask - bipap FiO2 % 50.0 Urine Color Colorless (Yellow) Urine Clarity Turbid (Clear) Urine pH 5.5 (5.0-9.0) Urine Specific [place] 1.010 (1.001-1.035) Urine Protein 1+ (Negative) Urine Ketones Negative (Negative) Urine Blood 2+ /uL (Negative) Urine Nitrite Negative (Negative) Urine Bilirubin Negative (Negative) Urine Urobilinogen Normal mg/dL (Negative) Urine Leukocyte Esterase 2+ /uL (Negative) Urine RBC 3 /hpf (0 - 4) Urine WBC Clumps Present /hpf (None Seen) Urine Microscopic WBC 70 /HPF (0-5) Urine Squamous Epithelial Cells Few /hpf (<5) Urine Amorphous Crystals Few /hpf (None Seen) Urine Bacteria Few /hpf (None Seen) Urine Mucus Few (None Seen) Urine Glucose 1+ mg/dL (Normal) B-Type Natriuretic Peptide 507.00 pg/mL (0-100) Other Laboratory Tests 03/28/25 05:06 Brief Hx & Hospital Course: see dictated note Condition at Discharge: Fair Final Diagnosis/Problems List chf Discharge Disposition: Home Discharge Instruct/Medications Diet: Renal Activity: No Restrictions, As Tolerated Follow Up/Referral: fu with [facility]/nephrology Medications: resume home meds Discharge Statement: "Patient was advised to return to the ER or call 911 if any headaches, dizziness, shortness of breath, chest pain, abdominal pain, bleeding, fevers, or worsening of medical condition. Patient was counseled about treatment plan, medications, possible side effects, patientverbalized understanding. All questions were answered to the best of my ability. This discharge took greater then 30 minutes in planning, reviewing documentation, counseling the patient, and discussing with other team members." ASSESSMENT ASSESSMENT Assessment chf Date of Service: March 28, 2025 Billing Provider: JEREMIAS JORDAN MD Common Visit Codes: 50899-LXJ/OBS DISCH DAY >30min JEREMIAS JORDAN MD March 28, 2025 10:48
[2025-03-28] MEDS ORDERED: CEFD300C2 PO (10:51)
--- NOTE | 2025-03-28 11:34 | DVHSR ---
APPROVED REPORT EXAM: Two-dimensional and M-mode echocardiogram with Doppler and color Doppler. Blood Pressure: 111/53 mmHg INDICATION Heart Failure RISK FACTORS Height: 5', Weight: 149 DIMENSIONS LVDd4.4 (3.8-5.7cm)LA (2D)5.2 (1.9-4.0cm)Aortic Root (2.0-3.7cm) LVDs3.0 (2.5-4.0cm)LA (MM) (1.9-4.0cm)Aortic Cusp Exc (1.5-2.0cm) EF (%) 60.0 (55-70%)Rt. Atrium (1.9-4.0cm)Asc. Aorta cm IVSd1.2 (0.7-1.1cm)RV (D) (1.8-2.4cm) Mitral Valve MitralMitral Stenosis E wave1.38m/sMV Mean GR.5mmHg A wave1.31m/sMV Peak GR.13mmHg E/A ratio1.12D MVAcm2 DECEL [id number] 1/2 Timems Aortic Valve Aortic ValveAortic Stenosis V10.88m/Kenrick Mean GR.24mmHg V23.04m/Kenrick Peak GR.37mmHg LVOT Diameter2.1 (1.8-2.4cm)Doppler AVA1.00cm2 Tricuspid Valve TR Velocity2.53m/s [id number] Other Information Quality : Technically LimitedRhythm : Technically limited study due to body habitus and patient position. Conclusion lvef 55% moderate mitral stenosis moderate mitral regrug left atrium enlarged moderate mean gradiient of 23 mmhg
--- NOTE | 2025-03-28 13:55 | DVHDS ---
DATE OF DISCHARGE: 03/28/2025 HISTORY OF PRESENT ILLNESS: The patient is a 74-year-old lady who was admitted with history of increasing shortness of breath requiring use of a BiPAP machine. The patient has a history of diabetes, chronic kidney disease, congestive heart failure, coronary artery disease, and blindness. HOSPITAL COURSE: The patient was in acute respiratory failure. Chest x-ray showed evidence of fluid overload. The patient's creatinine was at 3.2 with a BNP of 507. Troponin levels were elevated at 359. The patient's symptoms have since resolved. Echocardiogram is currently pending. She will be discharged home to resume her home medications. The patient has been noncompliant with diuretic use. The patient will be discharged on cefdinir 300 mg p.o. b.i.d. for 5 days. FINAL DIAGNOSES: Therefore: * Acute respiratory failure. * Zhqeg-rm-hotaybr systolic/diastolic heart failure. * Diabetes mellitus. * Hypertensive emergency. * Kybet-qk-ysbjokb renal failure, questionable vasomotor nephropathy. * Urinary tract infection, questionable sepsis. * Blindness. * Coronary artery disease with stents. * Hyperlipidemia. * Ydr-MO-azpxmpvaz myocardial infarction, likely type 2. Time spent in discharge planning, review of plan with the patient and family at bedside was 38 minutes. MD JOHNNIE Grayson/WHIT TID: [id number] RECEIPT: [id number]
== END 2025-03-28 12:48 | disposition home or self-care (01) | DRG 871 ==
LOC: ER 04:31 → EDSEX 04:31 → EDBD 04:31 → OVERFLOW 07:48 → TELE-WESTW 22:20
PROVIDERS: ADMIT Internal Medicine; ATTEND Internal Medicine
PROC: 5A09357 Assistance with Respiratory Ventilation, Less than 24 Consecutive Hours, Continuous Positive Airway Pressure (ICD-10-PCS; principal; 2025-03-27)
DX: A41.9 Sepsis, unspecified organism (principal); I21.A1 Myocardial infarction type 2; I50.43 Acute on chronic combined systolic (congestive) and diastolic (congestive) heart failure; N17.0 Acute kidney failure with tubular necrosis; J96.20 Acute and chronic respiratory failure, unspecified whether with hypoxia or hypercapnia; I16.1 Hypertensive emergency; N39.0 Urinary tract infection, site not specified; I13.0 Hypertensive heart and chronic kidney disease with heart failure and stage 1 through stage 4 chronic kidney disease, or unspecified chronic kidney disease; Z20.822 Contact with and (suspected) exposure to COVID-19; I25.10 Atherosclerotic heart disease of native coronary artery without angina pectoris; H54.8 Legal blindness, as defined in USA; E78.5 Hyperlipidemia, unspecified; E11.40 Type 2 diabetes mellitus with diabetic neuropathy, unspecified; D64.9 Anemia, unspecified; N18.9 Chronic kidney disease, unspecified; E11.21 Type 2 diabetes mellitus with diabetic nephropathy; E11.22 Type 2 diabetes mellitus with diabetic chronic kidney disease; Z79.899 Other long term (current) drug therapy; Z95.5 Presence of coronary angioplasty implant and graft; Z91.148 Patient's other noncompliance with medication regimen for other reason; I25.2 Old myocardial infarction
CPT/HCPCS: 36415; 36600; 71045; 80048; 80053; 81001; 82805; 82962; 83036; 83605; 83880; 84484; 85025; 87040; 87426; 87804; 93005; 93306; 94660; 96365; 96375; 97163; 99291; G0378; J1815

== ENCOUNTER 2025-06-02 08:10 | Inpatient (IN) | payer OTHER, MEDICAID ==
[~2025-06-02] VITALS: Ht 152.4 cm; Wt 22.4 kg
[2025-06-02] VITALS (21 sets, daily range): BP systolic 101–175; BP diastolic 48–93; PULSE 71–107; RESP 15–17; TEMP 98.3–98.8; O2SAT 94–100
[~2025-06-02 08:10] MED LIST changes: +AMLO1TAB22 PO; +ASPI81CH49 PO; +CAL025T PO; +CARV12.544 PO; +CEFD300C2 PO; +FAMO10TA PO; +FURO20TA4 PO; +HYDR1TAB97 PO; -HYDR25TA4 PO; +HYDR25TA87 PO; -LINA5TAB PO; -LISI10TA34 PO; -METO25TA5 PO; +MIRT1TAB38 PO; +MULT-1058 PO; +SITA25TA PO; +SODI650T PO
--- NOTE | 2025-06-02 08:28 | ED.PDOC ---
CPR-HPI HPI Comments This is a 74 year old female FRANKLINA presenting to the ED with chief complaint of SOB/cardiac arrest. EMS reports patient had called 911 due to having SOB for the past 20 minutes. EMS relays that the patient was 81% on home O2 at 4L and when placed on CPAP, only went up to 85%. EMS states that the patient was noted to have rales bilaterally and abdominal distention. EMS notes patient was talking throughout the trip to the ED, however, she became unresponsive upon arrival. EMS reports history of CHF, 3 heart stents, and IL. Time Seen by MD: 08:24 Primary Care Provider: UNKNOWN Reviewed Notes: Nurses Notes, Finish Repairer Notes, Medications, Allergies Allergies: Coded Allergies: NO KNOWN ALLERGIES (Unverified , 08/26/19) Home Meds Active Scripts Cefdinir (Cefdinir) 300 Mg Cap, 1 CAP PO BID for 5 Days, #10 CAP Prov:JEREMIAS JORDAN MD 03/28/25 Reported Medications Multiple Vitamins W/ Minerals (Multivitamin) 1 Tab Tab, 1 TAB PO DAILY, TAB 03/27/25 Aspirin (Aspirin) 81 Mg Chw, 81 MG PO DAILY, TAB.CHEW 03/27/25 Famotidine (Acid Surveyor Helper Rod) 10 Mg Tab, 10 MG PO DAILY 03/27/25 Furosemide (Furosemide) 20 Mg Tab, 1 TAB PO BID 03/27/25 Hydralazine HCl (Hydralazine HCl) 25 Mg Tab, 1 TAB PO TID 03/27/25 1, 25 Dihydroxycholecalciferol (ROCALTROL CAPSULE) 0.25 Mcg Cp, 1 CAP PO DAILY 03/27/25 Hydrocodone-Acetaminophen (Hydrocodone/Acetaminophen 5-325 mg) 1 Tab Tab, 1 TAB PO BIDPRN PRN 03/27/25 Mirtazapine (Mirtazapine Oral Disintegrating Tablet) 15 Mg Tab, 1 TAB PO DAILY 03/27/25 Carvedilol (Carvedilol) 12.5 Mg Tab, 1 TAB PO BID 03/27/25 Sitagliptin (Sitagliptin) 25 Mg Tab, 1 TAB PO DAILY 03/27/25 Amlodipine Besylate (Amlodipine Besylate) 5 Mg Tab, 1 TAB PO DAILY 03/27/25 Sodium Bicarbonate (Sodium Bicarbonate) 650 Mg Tab, 3 TAB PO TID 03/27/25 Glipizide (Glipizide) 5 Mg Tab, 5 MG PO BID for 30 Days, MG 08/26/19 Atorvastatin Calcium (ATORVASTATIN CALCIUM) 40 Mg Tab, 40 MG PO DAILY, TAB 08/26/19 Cilostazol (Cilostazol) 100 Mg Tab, 100 MG PO BID for 30 Days, MG 08/26/19 Information Source: Emergency Med Personnel Mode of Arrival: EMS Timing: Minutes Duration: Down time prior EMS: (0), Total time prior hopital: (15 minutes) Onset: At rest Available Hx: Prior Cardiac Disease Inital rhythm: Bradycardia Treatment: None Response: Sustained return of pulse Associated signs and symptoms: Dyspnea Past Medical History PAST MEDICAL HISTORY: Anemia, CHF, CKF, DM, ESRD, IL Surgical History: PTCA PLATEMAN History: No Pertinent PLATEMAN History Social History Smoker: Non-Smoker Alcohol: Denies ETOH Use Drugs: Denies Drug Use Lives In: Home Constitutional: denies: chills, diaphoresis, fatigue, fever, malaise, sweats, weakness, others EENTM: denies: blurred vision, double vision, ear bleeding, ear discharge, ear drainage, ear pain, ear ringing, eye pain, eye redness, hearing loss, mouth pain, mouth swelling, nasal discharge, nose bleeding, nose congestion, nose pain, photophobia, tearing, throat pain, throat swelling, voice changes, others Respiratory: reports: shortness of breath; denies: cough, hemoptysis, orthopnea, SOB at rest, SOB with excertion, stridor, wheezing, others Cardiovascular: reports: edema; denies: chest pain, dizzy spells, diaphoresis, Dyspnea on exertion, irregular heart beat, left arm pain, lightheadedness, palpitations, PND, syncope, others Gastrointestinal: reports: abdomen distended; denies: abdominal pain, blood streaked bowels, constipated, diarrhea, dysphagia, difficulty swallowing, hematemesis, melena, nausea, poor appetite, poor fluid intake, rectal bleeding, rectal pain, vomiting, others Genitourinary: denies: abnormal vagina bleeding, burning, dyspareunia, dysuria, flank pain, frequency, hematuria, incontinence, pain, , vagina discharge, urgency, others Neurological: denies: dizziness, fainting, headache, left sided numbness, left sided weakness, numbness, paresthesia, pre-existing deficit, right sided numbness, right sided weakness, seizure, speech problems, tingling, tremors, weakness, others Musculoskeletal: denies: back pain, gout, joint pain, joint swelling, muscle pain, muscle stiffness, neck pain, others Integumetry: denies: bruises, change in color, change in hair/nails, dryness, laceration, lesions, lumps, rash, wounds, others Allergic/Immunocompromised: denies: Difficulty Healing, Frequent Infections, Hives, Itching, others Hematologic/Lymphatic: denies: anemia, blood clots, easy bleeding, easy bruising, swollen glands, others Endocrine: denies: excessive hunger, excessive sweating, excessive thirst, excessive urination, flushing, intolerance to cold, intolerance to heat, unexplained weight gain, unexplained weight loss, others Psychiatric: denies: anxiety, bipolar disorder, depression, hopeless, panic disorder, schizophrenia, sleepless, suicidal, others Unable to Obtain due to: Altered Mental Status, Medical Urgency All Other Systems: Reviewed and Negative Physical Exam General Appearance: Severe Distress HEENT: Other (Possibly legally blind) Neck: Normal, Normal Inspection Respiratory: Accessory Muscle Use, Respiratory Distress, Other (Intubated the patient) Cardiovascular: Other (No pulse) Breast Exam: Deferred Gastrointestinal: Soft Genitalia: Deferred Pelvic: Deferred Rectal: Deferred Extremities: Pedal edema Neurologic: NOT DONE (Unconscious) Cerebellar Function: NOT DONE Reflexes: NOT DONE Skin: Pallor Peripheral Pulses: 3+ Radial (R), 3+ Radial (L) Lymphatic: NOT DONE EKG EKG : Cardiac Rhythm: NSR Was a procedure done? 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: Attending Physician Indication: CVP monitoring, Volume resuscitation, Suspected infection Room prepared for procedure: Yes Polymer Chemist performed hand hygien: Yes Maximal sterile barrier precau: Mask/Eye shield, Sterile gown, Cap, Sterlie gloves, Large sterlie drape Skin Preparation: Chlorhexidine gluconate Skin preparation completely dr: Yes Insertion site: Right, Femoral Central line catheter type: Gqh-[id number] dialysis Number of lumens: 3 Post Assessment: Chest X-Ray, Proper placement Informed consent obtained: No Risks/benefits/alt described: No Intubation Indication: Respiratory Insufficiency, Altered Mental Status, Airway Protection Prep: Preoxygenation Pretreated with: Nothing Medicated with: Nothing Intubation Approach: Orotracheal Intubation size: cm (8) Informed consent obtained: No Risks/benefits/alt described: No Differential Dx CPR Differential Diagnosis: Cardiopulmonary arrest, Electrolyte disorder, Heart Block, Myocardial Infarction, Respiratory Failure X-Ray, Labs, Meds, VS Vital Signs Date Time Temp Pulse Resp B/P (MAP) Pulse Ox O2 Delivery O2 Flow Rate FiO2 06/02/25 09:55 118/55 06/02/25 09:54 98.8 107 17 175/93 100 100 98.8 06/02/25 09:10 121/55 06/02/25 08:57 145/78 06/02/25 08:47 100 06/02/25 08:45 186/99 06/02/25 08:39 107 26 175/93 (120) 100 100 06/02/25 08:33 98.8 131 26 134/75 (94) 87 98.8 Lab Test 06/02/25 09:18 06/02/25 08:49 06/02/25 08:46 Range/Units Blood Gas Specimen Type Arterial Blood Gas Sample Site Right radial Blood Gas Patient Temperature 37.0 Arterial Blood Date Drawn [id number] Arterial Blood pH 7.394 7.350-7.450 Arterial Blood Partial Pressure CO2 41.6 32.0-45.0 mmHg Arterial Blood Partial Pressure O2 143.7 H 83.0-108.0 mmHg Arterial Blood HCO3 24.8 21.0-28.0 mmol/L Arterial Blood Oxygen Saturation 98.4 H 94.0-98.0 % Arterial Blood Base Excess -0.1 -2.0-3.0 mmol/L Arterial Blood Oxyhemoglobin 96.8 94.0-98.0 % Arterial Blood Carboxyhemoglobin 0.9 0.5-1.5 % Arterial Blood Methemoglobin 0.7 0.0-1.5 % Dagoberto Test Modified Blood Gas Total Hemoglobin 7.90 L 12.0-16.0 g/dL Blood Gas Set Respiration Rate 16.0 Blood Gas Modality Vent - ac FiO2 % 100.0 Blood Gas Tidal Volume 500.0 Blood Gas PEEP or CPAP 5.0 Urine Color Light-yellow Yellow Urine Clarity Turbid H Clear Urine pH 5.5 5.0-9.0 Urine Specific [place] 1.011 1.001-1.035 Urine Protein 1+ H Negative Urine Ketones Negative Negative Urine Blood Trace H Negative /uL Urine Nitrite Negative Negative Urine Bilirubin Negative Negative Urine Urobilinogen Normal Negative mg/dL Urine Leukocyte Esterase 2+ Negative /uL Urine RBC 5 0 - 4 /hpf Urine WBC Clumps Present None Seen /hpf Urine Microscopic WBC 92 H 0-5 /HPF Urine Squamous Epithelial Cells Few <5 /hpf Urine Bacteria Few H None Seen /hpf Urine Mucus Few None Seen Urine Glucose 2+ H Normal mg/dL White Blood Count 14.2 H 4.4-10.8 10^3/uL Red Blood Count 2.62 L 4.0-5.20 10^6/uL Hemoglobin 8.0 L 12.2-16.2 g/dL Hematocrit 24.3 L 36.0-46.0 % Mean Corpuscular Volume 92.7 80.0-100.0 fL Mean Corpuscular Hemoglobin 30.5 28.0-32.0 pg Mean Corpuscular Hemoglobin Concent 32.9 32.0-36.0 g/dL Red Cell Distribution Width 17.7 H 11.8-14.3 % Platelet Count 299 140-450 10^3/uL Mean Platelet Volume 8.0 6.9-10.8 fL Neutrophils (%) (Auto) 81.6 H 37.0-80.0 % Lymphocytes (%) (Auto) 12.1 10.0-50.0 % Monocytes (%) (Auto) 5.0 0.0-12.0 % Eosinophils (%) (Auto) 0.9 0.0-7.0 % Basophils (%) (Auto) 0.4 0.0-2.0 % Neutrophils # (Auto) 11.6 H 1.6-8.6 10 ^3/uL Lymphocytes # (Auto) 1.7 0.4-5.4 10 ^3/uL Monocytes # (Auto) 0.7 0-1.3 10 ^3/uL Eosinophils # (Auto) 0.1 0-0.8 10 ^3/uL Basophils # (Auto) 0.1 0-0.2 10 ^3/uL Nucleated Red Blood Cells 0.2 % Prothrombin Time 10.9 9.3-11.8 sec Prothrombin Time INR 1.03 0.9-1.15 Activated Partial Thromboplast Time 23.1 L 24.5-34.5 SEC Sodium Level 141 136-145 mmol/L Potassium Level 4.3 3.5-5.1 mmol/L Chloride Level 101 98-107 mmol/L Carbon Dioxide Level 26 20-31 mmol/L Anion Gap 14 5-15 Blood Urea Nitrogen 62 H 9-23 mg/dL Creatinine 4.76 H 0.550-1.02 mg/dL Glomerular Filtration Rate Calc 9 >90 mL/min BUN/Creatinine Ratio 13.0 10.0-20.0 Serum Glucose 249 H 74-106 mg/dL Lactic Acid Level 4.7 *H 0.4-2.0 mmol/L Calcium Level 11.4 H 8.7-10.4 mg/dL Total Bilirubin 0.4 0.2-1.0 mg/dL Aspartate Amino Transferase (AST) 168 H 13-40 U/L Alanine Aminotransferase (ALT) 166 H 7-40 U/L Alkaline Phosphatase 97 46-116 U/L Total Protein 6.8 5.7-8.2 g/dL Albumin 4.0 3.2-4.8 g/dL Current Medications Medications (Trade) Dose Ordered Sig/Rosa Route Start Time Stop Time Status Last Admin Vancomycin HCl 200 ml @ 200 mls/hr ONCE ONCE IV 06/02/25 08:30 06/02/25 09:29 DC 06/02/25 09:55 Furosemide (Lasix Injection) 20 mg ONCE ONCE IV 06/02/25 08:30 06/02/25 08:31 DC 06/02/25 09:55 Midazolam HCl 50 ml @ 1 mls/hr Q24H IV 06/02/25 08:45 06/02/25 08:45 Fentanyl Citrate 250 ml @ 2.5 mls/hr Q24H IV 06/02/25 09:05 06/02/25 09:10 Patient unconscious. Had no pulse. Tachycardia. Blood pressure appropriate. Intubated the patient. Placed a central line. Sepsis protocol. Had to hold on the fluids because of CHF. Was given Lasix. Reviewed her history. Continue monitoring. Waiting for family. [place] approved inpatient admission [id number]. Time of 1ST Reevaluation: 09:22 Reevaluation 1ST: Improved Patient Education/Counseling: Pt Unresponsive Family Education/Counseling: No Family Present Additional Information Previous visits reviewed: 03/27/25 for CHF exacerbation The following tests were ordered, and results were reviewed by me: Chest XR, CT Head, EKG, CBC, CMP, UA, PTPTT, Lactic, Respiratory culture, Blood culture Additional Information was gathered from interviewing the following independent historians: EMS I reviewed and agreed with the following test results read by other providers: Chest XR, Head CT I discussed treatment and results with medical personnel and: patient Comprehensive systems review obtained and negative except for what is stated in the HPI. SEPSIS Sepsis Screen Physician Orders Chest Portable (06/02/25 08:24) Epinephrine Hcl (06/02/25 08:30) Accucheck (06/02/25 08:28) Blood Culture (06/02/25 08:28) Notify Md If Map <65 Or Bp<90 (06/02/25 08:28) If Map<65 Start Vasopressor (06/02/25 08:28) Sepsis Reassesment After Fluid (06/02/25 09:28) Sodium Chloride 0.9% (06/02/25 08:30) Ventilator Setup (06/02/25 08:20) Respiratory Culture W/ Gs (06/02/25 08:30) Abg W/ Co-Ox (06/02/25 09:00) Midazolam Drip 50 Mg/50ml (Versed Drip 5 (06/02/25 08:45) Rass Sedation Scale Q1HR (06/02/25 08:34) Electrocardigram (06/02/25 09:00) Ventilator Orders (06/02/25 08:30) Fentanyl Drip 2500mcg/250mlns (06/02/25 09:05) Head Without Contrast (06/02/25 09:07) Chest Xray 1 View (06/02/25 09:35) Cefepime 1gm/ 50ml (Maxipime 1gm/50ml) (06/03/25 10:00) Vital Signs Date Time Temp Pulse Resp B/P (MAP) Pulse Ox O2 Delivery O2 Flow Rate FiO2 06/02/25 09:55 118/55 06/02/25 09:54 98.8 107 17 175/93 100 100 98.8 06/02/25 09:10 121/55 06/02/25 08:57 145/78 06/02/25 08:47 100 06/02/25 08:45 186/99 06/02/25 08:39 107 26 175/93 (120) 100 100 06/02/25 08:33 98.8 131 26 134/75 (94) 87 98.8 Laboratory Tests Test 06/02/25 08:46 Lactic Acid Level 4.7 mmol/L (0.4-2.0) *H White Blood Count 14.2 10^3/uL (4.4-10.8) H Medications Medications Dose Ordered Sig/Rosa Route Start Time Stop Time Status Last Admin Dose Admin Fentanyl Citrate 250 ml @ 2.5 mls/hr Q24H IV 06/02/25 09:05 06/02/25 09:10 Furosemide 20 mg ONCE ONCE IV 06/02/25 08:30 06/02/25 08:31 DC 06/02/25 09:55 Midazolam HCl 50 ml @ 1 mls/hr Q24H IV 06/02/25 08:45 06/02/25 08:45 Vancomycin HCl 200 ml @ 200 mls/hr ONCE ONCE IV 06/02/25 08:30 06/02/25 09:29 DC 06/02/25 09:55 Departure 1 Departure Time of Disposition: 09:06 Impression: Primary Impression: Acute and chronic respiratory failure Additional Impressions: Metabolic encephalopathy CHF exacerbation Qualified Codes: I50.43 - Acute on chronic combined systolic (congestive) and diastolic (congestive) heart failure Sepsis, unspecified organism Qualified Codes: A41.9 - Sepsis, unspecified organism Disposition: ADMITTED INPATIENT Admit to: ICU Condition: Guarded Critical Care Note Critical Care Time?: Yes (90 min-critical care time only) Heart Score Heart Score: Heart Score Response (Comments) Value History Slightly Suspicious 0 EKG Normal 0 Age >65 2 Risk Factors >3 or Hx ASHD 2 Troponin Normal limit 0 Total 4 Stability Stability form required: No I personally scribed for RIGOBERTO NEWMAN MD ([email or web address]) on 06/02/25 at 08:28. Electronically submitted by Schuyler Marley ([email or web address]). I personally scribed for RIGOBERTO NEWMAN MD ([email or web address]) on 06/02/25 at 09:21. Electronically submitted by Schuyler Marley ([email or web address]). RIGOBERTO NEWMAN MD Jun 02, 2025 08:28
[2025-06-02] MEDS: SODIUM CHLORIDE 0.9% 1,000 ML IV ONE ×2 (08:30)
[2025-06-02] MEDS: EPINEPHrine HCL 250 ML IV ONE ×2 (08:30→08:57)
[2025-06-02] MEDS: MIDAZOLAM DRIP 50 mg/50mL 50 ML IV SCH (08:45)
--- NOTE | 2025-06-02 09:06 | DVH ---
XY CHEST PORTABLE, HISTORY: POST INTUBATION COMPARISON: XY CHEST PORTABLE on DOS: 03/28/25, XY CHEST PORTABLE on DOS: 03/27/25 XY CHEST PORTABLE on DOS: 03/28/25, XY CHEST PORTABLE on DOS: 03/27/25 TECHNICAL DATA: 1 view of the chest was obtained. FINDINGS: Lines and tubes: ET and NG tubes are in appropriate position. Cardiomediastinal silhouette: normal Pulmonary vasculature: normal Lung expansion: normal Lung airspace: Perihilar airspace opacities. Lung interstitium: Prominent Pleura: normal Pneumothorax: no Bones: Unremarkable Other: no IMPRESSION: ET and NG tubes are in appropriate position. Pulmonary edema.
[2025-06-02] MEDS: fentaNYL Drip 2500mCg/250mlNS 250 ML IV SCH (09:10)
[2025-06-02 09:13] LABS: Hematocrit 24.3 % (36.0-46.0); Hemoglobin 8.0 g/dL (12.2-16.2); Mean Corpuscular Hemoglobin 30.5 pg (28.0-32.0); Mean Corpuscular Volume 92.7 fL (80.0-100.0); Nucleated Red Blood Cells % 0.2 %
[2025-06-02] MEDS: fentaNYL Drip 2500mCg/250mlNS 250 ML IV ONE (09:26)
[2025-06-02 09:27] LABS: Base Excess -0.1 mmol/L (-2.0-3.0)
[2025-06-02 09:28] LABS: Urine Protein, UAD 1+ (Negative); Urine WBC Clumps PRESENT /hpf (None Seen)
[2025-06-02 09:28] LABS: INR 1.03 (0.9-1.15); Partial Thromboplastin Time 23.1 SEC (24.5-34.5); Prothrombin Time 10.9 sec (9.3-11.8)
[2025-06-02 09:29] LABS: Albumin 4.0 g/dL (3.2-4.8); Alkaline Phosphatase 97 U/L (46-116); Anion Gap 14 (5-15); BUN/Creatinine Ratio 13.0 (10.0-20.0); Carbon Dioxide 26 mmol/L (20-31); Chloride 101 mmol/L (98-107); Potassium 4.3 mmol/L (3.5-5.1); Sodium 141 mmol/L (136-145); Total Protein 6.8 g/dL (5.7-8.2)
[2025-06-02 09:30] LABS: Alanine Aminotransferase 166 U/L (7-40); Bilirubin, Total 0.4 mg/dL (0.2-1.0); Blood Urea Nitrogen 62 mg/dL (9-23); Calcium 11.4 mg/dL (8.7-10.4); Glucose 249 mg/dL (74-106)
[2025-06-02 09:32] LABS: Lactic Acid w/Reflex 4.7 mmol/L (0.4-2.0)
[2025-06-02] MEDS: FUROSEMIDE 20 MG/2 ML VIAL IV ONE (09:55)
[2025-06-02] MEDS: VANCOMYCIN 1GM/200ML PM 200 ML IV ONE (09:55)
--- NOTE | 2025-06-02 10:20 | DVH ---
CHEST RADIOGRAPH Indication: CENTRAL LINE PLACEMENT Technique: Single frontal view of the chest was obtained Comparison: XY CHEST PORTABLE on DOS: 06/02/25, XY CHEST PORTABLE on DOS: 03/28/25, XY CHEST PORTABLE o n DOS: 03/27/25, XY CHEST PORTABLE on DOS: 06/02/25 FINDINGS: Lines and tubes: ET and NG tubes are in appropriate position. Cardiomediastinal silhouette: normal Pulmonary vasculature: normal Lung expansion: normal Lung airspace: Perihilar airspace opacities. Lung interstitium: Prominent Pleura: normal Pneumothorax: no Bones: Unremarkable Other: no IMPRESSION: ET and NG tubes are in appropriate position. Worsening Pulmonary edema
--- NOTE | 2025-06-02 10:42 | RESUS ---
CODE VIN ASSESSSMENT History of Events History of Events: EMS arrived with patient to ED who became pulsless upon arrival. Code vin called at 0813 BY ER staff. Initial Information Date: Jun 02, 2025 Time: 08:13 Location of Arrest: ER Arrest Witnessed: Yes CPR started initial time: 08:13 CPR started by whom: Hospital Staff Last seen well: en route to hospital with ems Pre-Hospital Care: BLS Type of arrest: Cardiac, Respiratory, Adult, Witnessed Spontaneous Respirations: No Pulse Present: No Monitoring: Pulse Oximetry Crash Cart Opened and Supplies: Yes Airway Ventilation Breathing at Onset: Assisted Time of first Assisted Ventila: 08:13 Artificial Ventilation: Bag/Mask Intubation Time: 08:15 Intubation Size: 8.0 cuffed Intubated by: Dr Cortés-Resident Intubation Attempts: 1 Intubated orally: Yes Tube secured at: 24 CO2 indicator used: Yes Confirmation: Auscultation, Exhaled CO2 Suctioning (Oral/Tracheal): Yes Circulation Circulation #1: Time: 08:13 Pulse Rate (adult): 0 Blood Pressure Systolic: 0 Blood Pressure Diastolic: 0 Circulation Comment: pea Circulation #2: Time: 08:15 Pulse Rate (adult): 0 Blood Pressure Systolic: 0 Blood Pressure Diastolic: 0 Circulation Comment: pea Circulation #3: Time: 08:17 Pulse Rate (adult): 0 Blood Pressure Systolic: 0 Blood Pressure Diastolic: 0 Circulation Comment: asystole Circulation #4: Time: 08:19 Pulse Rate (adult): 106 Blood Pressure Systolic: 199 Blood Pressure Diastolic: 101 Temperature (Fahrenheit): 98.8 (Rectal) Circulation Comment: ROSC Defibrillation Defbrillation : Time Defibrillator Applied: 08:14 Compressions: Manual Procedure - IV Procedure - IV : IV start time: 08:16 IV Side: Left IV Location: Forearm Anterior IV Catheter Type: Peripheral IV IV Placed: RN IV Gauge: 20 IV Line Care: Saline Flush Medications & Response Medications and Responses #1: Medication Time: 08:16 ADULT Medications Given ADULT: Epinephrine 1 mg, Sodium Bacarbinate 50 meq Route of Administration: IV Medications and Responses #2: Medication Time: 08:17 ADULT Medications Given ADULT: Sodium Bacarbinate 50 meq, Calcium Chloride 10 mL Route of Administration: IV Medications and Responses #3: Medication Time: 08:19 ADULT Medications Given ADULT: Sodium Bacarbinate 50 meq Route of Administration: IV Nurses Notes Aurea Coma Scale Eye Opening: None (1) [place] Coma Scale Motor: None (1) Bedside Blood Glucose: 189 EKG Rhythm: Sinus Tachycardia Time Code Ended Time Code Ended: 08:19 Post Arrest Status: Ventilated Outcome of code: Successful Code Team Present: Dr Shook, Dr Cortés, Summer SHALE PLANER OPERATOR HELPER Charge, Bi PÉREZretail department supervisor, Danielle Mckenzie RN, Wyatt Coughlin RN, Mary C RN, Randy ERT, Pamela ERT, Indira RT, Rishi RT ROSC Time of ROSC: 08:19 Bi Agrawal Jun 02, 2025 10:42
--- NOTE | 2025-06-02 11:02 | DVH ---
CT HEAD WITHOUT CONTRAST Indication: altered EXAM DATE: 06/02/2025 10:33 AM COMPARISON: None TECHNIQUE: CT of the head without intravenous contrast. FINDINGS: There is no intracranial hemorrhage. There is no extra-axial fluid, mass, mass effect or midline shif t. The ventricles are midline and normal in size. Basilar cisterns are patent. There are mild periven tricular and subcortical white matter chronic microvascular ischemic changes. Mastoids well pneumatized. Mucosal thickening of the ethmoids. Bilateral orbital phthisis bulbi. IMPRESSION: No intracranial hemorrhage or mass effect. Mild chronic microvascular ischemic changes. Bilateral orbital phthisis bulbi.
[2025-06-02] MEDS: CEFEPIME 1GM/ 50ML 50 ML IV ONE (12:47)
[2025-06-02] MEDS ORDERED: DEXTROSE (50%) 50ML SYRG IV PRN ×2 (17:30→17:45)
[2025-06-02] MEDS ORDERED: FUROSEMIDE 40 MG/4 ML VIAL IV ONE (17:30)
[2025-06-02] MEDS ORDERED: InsuLIN REG 1unit/0.01ml Soln (100units/ml) SC SCH (18:00)
[2025-06-02] MEDS ORDERED: ACCU-CHEK COMFORT CURVE STRIP VI SCH (18:00)
--- NOTE | 2025-06-02 18:17 | DVHHP2 ---
DIVINE ORELLANA RESIDENT 06/02/251816: History of Present Illness Reason for Visit: cardiac arrest History of Present Illness Ms. Yancy Miller is a 74-year-old female with a known history of HTN, diabetes mellitus, congestive heart failure with preserved ejection fraction, coronary artery disease (CAD) s/p 3-vessel stenting in 2019 (RCA, LCx, LAD), chronic kidney disease not on dialysis yet but stage 5, hyperlipidemia, and blindness who was brought in by EMS due to jaw pain and SOB According to her daughters, the patient began experiencing jaw pain radiating to the right arm yesterday, which worsened today while she was walking to the bathroom. At approximately 7:30 AM, she developed sudden shortness of breath that rapidly progressed over 20 minutes. EMS was called and found her in respiratory distress but still alert and conversant during transport. She arrived at the ED at 08:10 AM. Cardiac arrest occurred at 08:13 AM. ACLS was initiated immediately. She required one round of defibrillation at 08:14 AM, one dose of epinephrine, and three doses of sodium bicarbonate. ROSC was achieved at 08:19 AM. She was then transferred to the ICU for further management of post- arrest care and respiratory failure. Nephrology from [place] has previously followed the patient and reportedly discussed future dialysis plans. She was seen on [facility] on march 2025 due to UTI and was sent home with cefdinir Past Medical History: Congestive heart failure (EF 55%) Coronary artery disease s/p 3-vessel stenting (2019) Chronic kidney disease, not on hemodialysis Type 2 diabetes mellitus Hyperlipidemia Blindness HTN Past Surgical History: PCI with stenting (RCA, LCx, LAD) in 2019 Home meds: rocaltrol, amldodipine, aspirin, atorvastatin, carvedilol, colistazol, famotidine, furosemide, glipizide, hydralazine, noroc , mirtazapine, sitagliptin and sodium bicarb Social History Smoker: Non-Smoker Alcohol: Denies ETOH Use Drugs: Denies Drug Use Lives In: Home Labs (on admission): WBC: 14.2 Hgb: 8 Plt: 299 Na: 141, K: 4.3 Creatinine: 4.76 Glucose: 249 Lactate: 4.7 AST: 168, ALT: 166 TB: 0.4 HbA1c: 6.3 UA: LE 1+, WBC 92, RBC 5, glucose 24 Imaging: Chest X-ray: Pulmonary edema Head CT: Mild chronic microvascular ischemic changes, buphthalmos EKG: Sinus tachycardia Echo: EF 55%, moderate mitral stenosis and regurgitation, LA enlargement Review of Systems Review of Systems Unable to obtain complete ROS due to acuity of presentation. Positive: Chest pain (jaw, right arm), shortness of breath Allergies: Coded Allergies: NO KNOWN ALLERGIES (Unverified , 08/26/19) Exam Vital Signs Vital Signs Date Time Temp Pulse Resp B/P (MAP) Pulse Ox O2 Delivery O2 Flow Rate FiO2 06/02/25 17:23 125/61 06/02/25 16:30 45 06/02/25 15:46 81 16 97 06/02/25 14:50 98.2 98.2 06/02/25 09:00 Mechanical Ventilator+ 70 Exam General: Intubated, sedated, post-arrest state CV: sinus tachycardia, murmur in aortic foci, LIJ Resp: Decreased breath sounds bilaterally, coarse crackles Neuro: Sedated on fentanyl and versed Ext: No edema noted Skin: No rash Labs/Xrays Labs Test 06/02/25 10:54 06/02/25 09:18 06/02/25 08:49 06/02/25 08:46 Range/Units Lactic Acid Level 2.1 *H 0.4-2.0 mmol/L Blood Gas Specimen Type Arterial Blood Gas Sample Site Right radial Blood Gas Patient Temperature 37.0 Arterial Blood Date Drawn [id number] Arterial Blood pH 7.394 7.350-7.450 Arterial Blood Partial Pressure CO2 41.6 32.0-45.0 mmHg Arterial Blood Partial Pressure O2 143.7 H 83.0-108.0 mmHg Arterial Blood HCO3 24.8 21.0-28.0 mmol/L Arterial Blood Oxygen Saturation 98.4 H 94.0-98.0 % Arterial Blood Base Excess -0.1 -2.0-3.0 mmol/L Arterial Blood Oxyhemoglobin 96.8 94.0-98.0 % Arterial Blood Carboxyhemoglobin 0.9 0.5-1.5 % Arterial Blood Methemoglobin 0.7 0.0-1.5 % Dagoberto Test Modified Blood Gas Total Hemoglobin 7.90 L 12.0-16.0 g/dL Blood Gas Set Respiration Rate 16.0 Blood Gas Modality Vent - ac FiO2 % 100.0 Blood Gas Tidal Volume 500.0 Blood Gas PEEP or CPAP 5.0 Urine Color Light-yellow Yellow Urine Clarity Turbid H Clear Urine pH 5.5 5.0-9.0 Urine Specific [place] 1.011 1.001-1.035 Urine Protein 1+ H Negative Urine Ketones Negative Negative Urine Blood Trace H Negative /uL Urine Nitrite Negative Negative Urine Bilirubin Negative Negative Urine Urobilinogen Normal Negative mg/dL Urine Leukocyte Esterase 2+ Negative /uL Urine RBC 5 0 - 4 /hpf Urine WBC Clumps Present None Seen /hpf Urine Microscopic WBC 92 H 0-5 /HPF Urine Squamous Epithelial Cells Few <5 /hpf Urine Bacteria Few H None Seen /hpf Urine Mucus Few None Seen Urine Glucose 2+ H Normal mg/dL White Blood Count 14.2 H 4.4-10.8 10^3/uL Red Blood Count 2.62 L 4.0-5.20 10^6/uL Hemoglobin 8.0 L 12.2-16.2 g/dL Hematocrit 24.3 L 36.0-46.0 % Mean Corpuscular Volume 92.7 80.0-100.0 fL Mean Corpuscular Hemoglobin 30.5 28.0-32.0 pg Mean Corpuscular Hemoglobin Concent 32.9 32.0-36.0 g/dL Red Cell Distribution Width 17.7 H 11.8-14.3 % Platelet Count 299 140-450 10^3/uL Mean Platelet Volume 8.0 6.9-10.8 fL Neutrophils (%) (Auto) 81.6 H 37.0-80.0 % Lymphocytes (%) (Auto) 12.1 10.0-50.0 % Monocytes (%) (Auto) 5.0 0.0-12.0 % Eosinophils (%) (Auto) 0.9 0.0-7.0 % Basophils (%) (Auto) 0.4 0.0-2.0 % Neutrophils # (Auto) 11.6 H 1.6-8.6 10 ^3/uL Lymphocytes # (Auto) 1.7 0.4-5.4 10 ^3/uL Monocytes # (Auto) 0.7 0-1.3 10 ^3/uL Eosinophils # (Auto) 0.1 0-0.8 10 ^3/uL Basophils # (Auto) 0.1 0-0.2 10 ^3/uL Nucleated Red Blood Cells 0.2 % Prothrombin Time 10.9 9.3-11.8 sec Prothrombin Time INR 1.03 0.9-1.15 Activated Partial Thromboplast Time 23.1 L 24.5-34.5 SEC Sodium Level 141 136-145 mmol/L Potassium Level 4.3 3.5-5.1 mmol/L Chloride Level 101 98-107 mmol/L Carbon Dioxide Level 26 20-31 mmol/L Anion Gap 14 5-15 Blood Urea Nitrogen 62 H 9-23 mg/dL Creatinine 4.76 H 0.550-1.02 mg/dL Glomerular Filtration Rate Calc 9 >90 mL/min BUN/Creatinine Ratio 13.0 10.0-20.0 Serum Glucose 249 H 74-106 mg/dL Calcium Level 11.4 H 8.7-10.4 mg/dL Total Bilirubin 0.4 0.2-1.0 mg/dL Aspartate Amino Transferase (AST) 168 H 13-40 U/L Alanine Aminotransferase (ALT) 166 H 7-40 U/L Alkaline Phosphatase 97 46-116 U/L Total Protein 6.8 5.7-8.2 g/dL Albumin 4.0 3.2-4.8 g/dL SEPSIS Sepsis Screen Date sepsis recognized/suspect: Jun 02, 2025 Time Sepsis recognized/suspect: 829 Recent Procedure: No On Antibiotic Therapy: No Respiratory Rate >20: Yes Heart Rate >90: No Temp<36 C (96.8 F) or >38.3 C: No SBP <90 or MAP <65 mmHG: No New Acute Mental Status Change: Yes Is the patient on CPAP, BIPAP,: Yes Physician Orders Chest Xray 1 View (06/02/25 09:35) Communication Order (06/02/25 13:45) Communication Order (06/02/25 13:46) Admit (06/02/25 17:24) Code Status (06/02/25 17:24) Npo (Nothing By Mouth) Diet (06/02/25 Dinner) Echo 2d Mode Cardiac Dop (06/02/25 17:24) Blood Culture (06/02/25 17:24) Patient Condition (06/02/25 17:24) Drug Screen (06/02/25 17:24) Troponin-I Hs (06/02/25 17:24) Electrocardigram (06/02/25 17:24) *[facility] (06/02/25 17:24) Troponin-I Hs (06/02/25 18:24) Troponin-I Hs (06/02/25 20:24) Urine Bacterial Culture (06/02/25 17:24) Blood Culture (06/02/25 17:24) Mrsa Screen (06/02/25 17:24) Respiratory Culture W/ Gs (06/02/25 17:24) B-Type Natriuretic Peptide (06/02/25 17:24) * Cardiology Consult (06/02/25 17:26) Vital Signs Date Time Temp Pulse Resp B/P (MAP) Pulse Ox O2 Delivery O2 Flow Rate FiO2 06/02/25 17:23 125/61 06/02/25 17:22 125/61 06/02/25 17:00 127/64 06/02/25 17:00 127/64 06/02/25 16:30 45 06/02/25 16:00 126/59 06/02/25 16:00 126/59 06/02/25 15:46 81 16 127/59 (81) 97 50 06/02/25 15:00 116/58 06/02/25 15:00 116/58 06/02/25 14:50 98.2 110 16 186/99 (128) 100 98.2 06/02/25 14:45 98.1 79 16 125/58 (80) 97 98.1 06/02/25 14:30 98.1 79 16 120/55 (76) 95 98.1 06/02/25 14:15 98.1 80 16 117/57 (77) 95 98.1 06/02/25 14:05 79 16 117/57 (77) 95 55 06/02/25 14:00 98.2 80 16 116/59 (78) 95 98.2 06/02/25 14:00 116/59 06/02/25 14:00 117/57 06/02/25 13:59 117/57 06/02/25 13:45 98.2 81 16 121/59 (79) 95 98.2 06/02/25 13:30 98.2 81 16 126/60 (82) 95 98.2 06/02/25 13:15 98.2 81 16 124/57 (79) 95 98.2 06/02/25 13:00 98.1 81 16 126/62 (83) 94 98.1 06/02/25 13:00 126/62 06/02/25 13:00 126/62 06/02/25 12:45 98.1 80 16 127/64 (85) 94 98.1 06/02/25 12:30 98.1 79 16 122/58 (79) 90 98.1 06/02/25 12:20 76 16 122/58 (79) 95 60 06/02/25 12:15 98.1 77 16 126/59 (81) 98 98.1 06/02/25 12:00 122/62 06/02/25 12:00 122/62 06/02/25 12:00 98.2 78 16 122/62 (82) 98 98.2 06/02/25 11:45 98.2 76 16 123/59 (80) 98 98.2 06/02/25 11:30 98.2 76 16 119/57 (77) 100 98.2 06/02/25 11:15 98.1 75 16 118/55 (76) 100 98.1 06/02/25 11:00 120/56 06/02/25 11:00 120/56 06/02/25 11:00 98.1 77 16 120/56 (77) 100 98.1 06/02/25 10:55 116/55 06/02/25 10:51 120/56 06/02/25 10:50 120/56 06/02/25 10:45 116/55 06/02/25 10:45 98.1 78 16 116/55 (75) 100 98.1 06/02/25 10:42 209.8 106 06/02/25 10:30 97.7 81 16 118/53 (74) 100 97.7 06/02/25 10:15 120/53 06/02/25 10:15 98.1 85 16 120/53 (75) 100 98.1 06/02/25 10:10 118/55 06/02/25 10:05 84 16 109/51 (70) 96 70 06/02/25 10:00 98.1 85 16 118/55 (76) 100 98.1 06/02/25 09:55 118/55 06/02/25 09:54 98.8 107 17 175/93 100 100 98.8 06/02/25 09:45 98.1 92 16 106/49 (68) 100 98.1 06/02/25 09:45 106/49 Laboratory Tests Test 06/02/25 08:46 06/02/25 10:54 Lactic Acid Level 4.7 mmol/L (0.4-2.0) *H 2.1 mmol/L (0.4-2.0) *H White Blood Count 14.2 10^3/uL (4.4-10.8) H Medications Medications Dose Ordered Sig/Rosa Route Start Time Stop Time Status Last Admin Dose Admin Cefepime HCl 50 ml @ 50 mls/hr ONCE ONCE IV 06/02/25 09:15 06/02/25 10:14 DC 06/02/25 12:47 50 MLS/HR Fentanyl Citrate 250 ml @ 2.5 mls/hr Q24H IV 06/02/25 09:05 06/02/25 17:30 DC 06/02/25 09:10 2.5 MLS/HR Furosemide 20 mg ONCE ONCE IV 06/02/25 08:30 06/02/25 08:31 DC 06/02/25 09:55 20 MG Midazolam HCl 50 ml @ 1 mls/hr Q24H IV 06/02/25 08:45 06/02/25 17:30 DC 06/02/25 17:23 15 MLS/HR Vancomycin HCl 200 ml @ 200 mls/hr ONCE ONCE IV 06/02/25 08:30 06/02/25 09:29 DC 06/02/25 09:55 200 MLS/HR Assessment/Plan Assessment/Plan #Neurology #Acute metabolic encephalopathy due to cardiac arrest #Cardiac arrest Down time: 6 min Versed and fentanyl pupils miotic but reactive RASS-2 CT scan: No intracranial hemorrhage or mass effect. Mild chronic microvascular ischemic changes. Bilateral orbital phthisis bulbi. #Cardiology #Cardiac arrest with need of defibrillation #CAD s/p 3x stent #Acute on chronic heart failure with diastolic dysfunction #moderate mitral stenosis #moderate mitral regurgitation #LA enlargement #moderate #septic shock? #Cardiogenic shock? #Hypertensive heart disease #NSTEMI? patient is fluid overload 20 mg furosemide given 40 mg furosemide now 40 mg furosemide BID epinephrine drip started after ROSC but DC due to HTN Cardiology on board troponins trending high EKG after ROSC: sinus tachycardia new EKG ordered right now BPs is normal no IVF due to fluid overload #Respiratory #[facility] to [facility] #Pulmonary edema RR 16 VT 500 FO2 45 PEEP 5 #Renal #MICAELA on CKD stage 5 #fluid overload Nephrology on board in case of need of dialysis furosemide BID #Hypercalcemia # #Septic shock due to UTI cefepime on #GI no feedings for now #Transaminitis after cardiac arrest, monitor #Heme/onc #Leukocytosis due to sepsis #Anemia normochromic normocytic due to renal disease monitor #ID Septic shock due to UTI cefepime vancomycin one dose Case discussed with Dr Cheek Time spent on critical care 114 min Plan discussed with: Daughter My Orders Orders - DIVINE ORELLANA Procedure Category Date Status Time Admit ADMIT 06/02/25 Transmitted 17:24 Code Status CODE 06/02/25 Transmitted 17:24 Npo (Nothing By DIET 06/02/25 Transmitted Mouth) Diet Dinner Echo 2d Mode Cardiac US 06/02/25 Logged DOP 17:24 Blood Culture ALESSIA 06/02/25 Logged 17:24 Patient Condition ORDERS 06/02/25 Transmitted 17:24 Drug Screen LAB 06/02/25 Logged 17:24 * Cardiology Consult CONS 06/02/25 Transmitted 17:26 Date of Service: Jun 02, 2025 Billing Provider: LONG CHEEK MD Common Visit Codes: 73315-[id number] INP/OBS CARE (HIGH), 85402-UTZMOABG CARE 30- 74 MIN, 29636-RUSSJLGA CARE-EACH +30MIN LONG CHEEK MD 06/02/25 1915: Review of Systems Allergies: Coded Allergies: NO KNOWN ALLERGIES (Unverified , 08/26/19) Assessment/Plan Plan discussed with: Daughter Date of Service: Jun 02, 2025 Billing Provider: LONG CHEEK MD Common Visit Codes: 88308-NQOFVZAK CARE 30-74 MIN, 30730-ZNRCNWAR CARE-EACH +30MIN DIVINE ORELLANA RESIDENT Jun 02, 2025 18:17 LONG CHEEK MD Jun 02, 2025 19:15
[2025-06-02 18:30] LABS: Chloride 103 mmol/L (98-107); Potassium 4.2 mmol/L (3.5-5.1); Sodium 142 mmol/L (136-145)
[2025-06-02 18:31] LABS: Anion Gap 12 (5-15); Calcium 10.3 mg/dL (8.7-10.4); Carbon Dioxide 27 mmol/L (20-31)
[2025-06-02 18:36] LABS: BUN/Creatinine Ratio 14.8 (10.0-20.0)
[2025-06-02 18:37] LABS: Magnesium 2.4 mg/dL (1.6-2.6)
[2025-06-02 18:38] LABS: Blood Urea Nitrogen 69 mg/dL (9-23); Glucose 171 mg/dL (74-106)
[2025-06-02] MEDS ORDERED: CALCIUM CHLOR(10%) 100MG/ML 10ML SYRINGE IV ONE (19:17)
[2025-06-02] MEDS ORDERED: EPINEPHrine HCL 1 MG/10 ML SYRG IV ONE (19:18)
[2025-06-02] MEDS ORDERED: SODIUM BICARB 8.4% 50Meq/50ml SYR INJ IV ONE (19:21)
[2025-06-02 19:38] LABS: COVID19 ANTIGEN SOFIA FIA NEGATIVE (NEGATIVE)
[2025-06-02 19:45] LABS: Amphetamine Screen, Urine Neg (NEGATIVE); Barbiturate Scree,Urine Neg (NEGATIVE); Benzodiazephine Screen, Urine Neg (NEGATIVE); Opiate Scree,Urine Neg (NEGATIVE)
[2025-06-02 19:46] LABS: Cannabinoid Screen, Urine Neg (NEGATIVE); Cocaine Screen, Urine Neg (NEGATIVE); Phencyclidine Screen, Urine Neg (NEGATIVE)
[2025-06-02] MEDS: FUROSEMIDE 40 MG/4 ML VIAL IV ONE ×2 (19:53→20:11)
[2025-06-02] MEDS: ACCU-CHEK COMFORT CURVE STRIP VI SCH (20:03)
[2025-06-02] MEDS: InsuLIN REG 1unit/0.01ml Soln (100units/ml) SC SCH (20:09)
[2025-06-02] MEDS: MIDAZOLAM DRIP 50 mg/50mL 50 ML IV ONE (21:16)
[2025-06-02] MEDS ORDERED: FUROSEMIDE 40 MG/4 ML VIAL IV SCH (22:00)
[2025-06-02] MEDS: FUROSEMIDE 40 MG/4 ML VIAL IV SCH (22:51)
[2025-06-03] VITALS (110 sets, daily range): BP systolic 104–145; BP diastolic 48–70; PULSE 71–90; RESP 11–26; TEMP 97.6–99.9; O2SAT 91–100
[2025-06-03] MEDS: MIDAZOLAM DRIP 50 mg/50mL 50 ML IV ONE ×2 (01:17→04:35)
--- NOTE | 2025-06-03 01:50 | ECG ---
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
[2025-06-03 03:44] LABS: Hematocrit 19.7 % (36.0-46.0); Mean Corpuscular Hemoglobin 31.2 pg (28.0-32.0); Nucleated Red Blood Cells % 0.1 %
[2025-06-03 03:46] LABS: Mean Corpuscular Volume 91.1 fL (80.0-100.0)
[2025-06-03 03:53] LABS: Hemoglobin 6.7 g/dL (12.2-16.2)
[2025-06-03 04:05] LABS: Alanine Aminotransferase 114 U/L (7-40); Albumin 3.4 g/dL (3.2-4.8); Alkaline Phosphatase 60 U/L (46-116); Anion Gap 14 (5-15); BUN/Creatinine Ratio 13.5 (10.0-20.0); Bilirubin, Total 0.6 mg/dL (0.2-1.0); Blood Urea Nitrogen 63 mg/dL (9-23); Calcium 10.3 mg/dL (8.7-10.4); Carbon Dioxide 27 mmol/L (20-31); Chloride 103 mmol/L (98-107); Glucose 108 mg/dL (74-106); Magnesium 2.3 mg/dL (1.6-2.6); Potassium 3.6 mmol/L (3.5-5.1); Sodium 144 mmol/L (136-145); Total Protein 6.0 g/dL (5.7-8.2)
[2025-06-03 04:23] LABS: INR 1.09 (0.9-1.15); Partial Thromboplastin Time 27.4 SEC (24.5-34.5); Prothrombin Time 11.5 sec (9.3-11.8)
--- NOTE | 2025-06-03 05:39 | DVH ---
CHEST RADIOGRAPH Indication: intubated Technique: Single frontal view of the chest was obtained COMPARISON: XY CHEST XRAY 1 VIEW on DOS: 06/02/25, XY CHEST PORTABLE on DOS: 06/02/25, XY CHEST PORTABL E on DOS: 03/28/25, XY CHEST PORTABLE on DOS: 03/27/25 FINDINGS: Lines and Tubes: Endotracheal tube, enteric catheter and left central venous catheter in satisfactory position. Lungs: Multifocal airspace disease Pleura: No effusion. No pneumothorax. Cardiomediastinal contours: Unremarkable Bones: Unremarkable IMPRESSION: Lines and tubes in satisfactory position. No significant interval change.
[2025-06-03 07:50] LABS: Base Excess 0.6 mmol/L (-2.0-3.0)
--- NOTE | 2025-06-03 09:09 | DVHINCON2 ---
Date of service: Jun 03, [address] Garcia Reason for Consultation Chronic kidney disease History of Present Illness Mrs. Miller is a 74-year-old female with known history of advanced chronic kidney disease, stage five presents for further evaluation and management of jaw pain with radiation to the arm. Her clinical course has been notable for a witnessed cardiac arrest in the emergency department for which she received ACLS protocol. She was intubated, transferred to intensive care unit. She was seen in the ICU this morning. Intubated sedated. All the history was obtained through the chart. Urine volumes have been nonoliguric. Past Medical History CKD stage 5 Coronary artery disease Type 2 diabetes mellitus Hyperlipidemia Blindness HTN Allergies: Coded Allergies: NO KNOWN ALLERGIES (Unverified , 08/26/19) Home Meds Active Scripts Cefdinir (Cefdinir) 300 Mg Cap, 1 CAP PO BID for 5 Days, #10 CAP Prov:JEREMIAS JORDAN MD 03/28/25 Reported Medications Multiple Vitamins W/ Minerals (Multivitamin) 1 Tab Tab, 1 TAB PO DAILY, TAB 03/27/25 Aspirin (Aspirin) 81 Mg Chw, 81 MG PO DAILY, TAB.CHEW 03/27/25 Famotidine (Acid Core Winder) 10 Mg Tab, 10 MG PO DAILY 03/27/25 Furosemide (Furosemide) 20 Mg Tab, 1 TAB PO BID 03/27/25 Hydralazine HCl (Hydralazine HCl) 25 Mg Tab, 1 TAB PO TID 03/27/25 1, 25 Dihydroxycholecalciferol (ROCALTROL CAPSULE) 0.25 Mcg Cp, 1 CAP PO DAILY 03/27/25 Hydrocodone-Acetaminophen (Hydrocodone/Acetaminophen 5-325 mg) 1 Tab Tab, 1 TAB PO BIDPRN PRN 03/27/25 Mirtazapine (Mirtazapine Oral Disintegrating Tablet) 15 Mg Tab, 1 TAB PO DAILY 03/27/25 Carvedilol (Carvedilol) 12.5 Mg Tab, 1 TAB PO BID 03/27/25 Sitagliptin (Sitagliptin) 25 Mg Tab, 1 TAB PO DAILY 03/27/25 Amlodipine Besylate (Amlodipine Besylate) 5 Mg Tab, 1 TAB PO DAILY 03/27/25 Sodium Bicarbonate (Sodium Bicarbonate) 650 Mg Tab, 3 TAB PO TID 03/27/25 Glipizide (Glipizide) 5 Mg Tab, 5 MG PO BID for 30 Days, MG 08/26/19 Atorvastatin Calcium (ATORVASTATIN CALCIUM) 40 Mg Tab, 40 MG PO DAILY, TAB 08/26/19 Cilostazol (Cilostazol) 100 Mg Tab, 100 MG PO BID for 30 Days, MG 08/26/19 Current Medications Current Medications Medications (Trade) Dose Ordered Sig/Rosa Route PRN Reason Start Time Stop Time Status Last Admin Cefepime HCl 50 ml @ 12.5 mls/hr DAILY IV 06/03/25 10:00 Fentanyl Citrate 250 ml @ 2.5 mls/hr Q24H IV 06/02/25 09:05 06/02/25 09:10 Diagnostic Test (Pha) (Accu-Chek Comfort Curve T) 1 strip Q6HR 06/02/25 18:00 06/02/25 17:30 DC Insulin Human Regular (InsuLIN R) Q4HR SC 06/02/25 18:00 06/02/25 17:30 DC Dextrose 50 ml UD PRN IV Blood Sugar LESS THAN 60 06/02/25 17:30 06/02/25 17:30 DC Pantoprazole Sodium (Protonix) 40 mg DAILY IV 06/03/25 10:00 Insulin Human Regular (InsuLIN R) Q6HR SC 06/02/25 18:00 06/02/25 20:09 Dextrose 50 ml UD PRN IV Blood Sugar LESS THAN 60 06/02/25 17:45 Diagnostic Test (Pha) (Accu-Chek Comfort Curve T) 1 strip Q6HR 06/02/25 18:00 06/03/25 06:00 Furosemide (Lasix Injection) 40 mg BIDD IV 06/02/25 22:00 06/02/25 19:09 DC Aspirin 81 mg DAILY PO 06/02/25 19:00 Furosemide (Lasix Injection) 80 mg BIDD IV 06/02/25 22:00 06/03/25 06:17 Family History: FH: congestive heart failure G8 MOTHER Review of Systems Unable to be obtained due to patient's critical status H&P Exam Vital Signs/I&O Vital Sign Date Time Temp Pulse Resp B/P (MAP) Pulse Ox O2 Delivery O2 Flow Rate FiO2 06/03/25 08:20 80 16 121/54 (76) 95 30 06/03/25 06:00 Mechanical Ventilator+ 06/03/25 04:00 99.0 99.0 06/02/25 09:00 70 Intake and Output 06/02/25 06/03/25 19:00 07:00 Intake Total 250 ml 176 ml Output Total 820 ml 1400 ml Balance -570 ml -1224 ml Intake Oral 0 ml IV Total 250 ml 176 ml Output Urine Total 820 ml 1400 ml Physical Exam Gen: nad, intubated and sedated heent: nc/at, mmm lungs: Rhonchi cvs: no rub abd: soft, bowel sounds audible ext: no edema skin: no rash neuro: Sedated Labs/Diagnostic Data Labs/Diagnostic Data Laboratory Tests Test 06/03/25 07:10 06/03/25 05:56 06/03/25 02:50 06/03/25 00:08 Range/Units Blood Gas Specimen Type Arterial Blood Gas Sample Site Right radial Blood Gas Patient Temperature 37.0 Arterial Blood Date Drawn [id number] Arterial Blood pH 7.480 H 7.350-7.450 Arterial Blood Partial Pressure CO2 32.5 32.0-45.0 mmHg Arterial Blood Partial Pressure O2 62.1 L 83.0-108.0 mmHg Arterial Blood HCO3 23.7 21.0-28.0 mmol/L Arterial Blood Oxygen Saturation 90.2 L 94.0-98.0 % Arterial Blood Base Excess 0.6 -2.0-3.0 mmol/L Arterial Blood Oxyhemoglobin 89.7 L 94.0-98.0 % Arterial Blood Carboxyhemoglobin 0.2 L 0.5-1.5 % Arterial Blood Methemoglobin 0.3 0.0-1.5 % Dagoberto Test Modified Blood Gas Total Hemoglobin 10.30 L 12.0-16.0 g/dL Blood Gas Set Respiration Rate 16.0 Blood Gas Modality Vent - ac FiO2 % 30.0 Blood Gas Tidal Volume 500.0 Blood Gas PEEP or CPAP 5.0 POC Glucose 102 126 H 70-106 mg/dl White Blood Count 9.7 # 4.4-10.8 10^3/uL Red Blood Count 2.16 L 4.0-5.20 10^6/uL Hemoglobin 6.7 #*L 12.2-16.2 g/dL Hematocrit 19.7 #L 36.0-46.0 % Mean Corpuscular Volume 91.1 80.0-100.0 fL Mean Corpuscular Hemoglobin 31.2 28.0-32.0 pg Mean Corpuscular Hemoglobin Concent 34.3 32.0-36.0 g/dL Red Cell Distribution Width 17.4 H 11.8-14.3 % Platelet Count 252 140-450 10^3/uL Mean Platelet Volume 8.0 6.9-10.8 fL Neutrophils (%) (Auto) 81.7 H 37.0-80.0 % Lymphocytes (%) (Auto) 10.5 10.0-50.0 % Monocytes (%) (Auto) 7.3 0.0-12.0 % Eosinophils (%) (Auto) 0.1 0.0-7.0 % Basophils (%) (Auto) 0.4 0.0-2.0 % Neutrophils # (Auto) 7.9 1.6-8.6 10 ^3/uL Lymphocytes # (Auto) 1.0 0.4-5.4 10 ^3/uL Monocytes # (Auto) 0.7 0-1.3 10 ^3/uL Eosinophils # (Auto) 0 0-0.8 10 ^3/uL Basophils # (Auto) 0 0-0.2 10 ^3/uL Nucleated Red Blood Cells 0.1 % Prothrombin Time 11.5 9.3-11.8 sec Prothrombin Time INR 1.09 0.9-1.15 Activated Partial Thromboplast Time 27.4 24.5-34.5 SEC Sodium Level 144 136-145 mmol/L Potassium Level 3.6 3.5-5.1 mmol/L Chloride Level 103 98-107 mmol/L Carbon Dioxide Level 27 20-31 mmol/L Anion Gap 14 5-15 Blood Urea Nitrogen 63 H 9-23 mg/dL Creatinine 4.68 H 0.550-1.02 mg/dL Glomerular Filtration Rate Calc 9 >90 mL/min BUN/Creatinine Ratio 13.5 10.0-20.0 Serum Glucose 108 H 74-106 mg/dL Calcium Level 10.3 8.7-10.4 mg/dL Phosphorus Level 5.1 2.4-5.1 mg/dL Magnesium Level 2.3 1.6-2.6 mg/dL Total Bilirubin 0.6 0.2-1.0 mg/dL Aspartate Amino Transferase (AST) 90 H 13-40 U/L Alanine Aminotransferase (ALT) 114 H 7-40 U/L Alkaline Phosphatase 60 46-116 U/L Total Protein 6.0 5.7-8.2 g/dL Albumin 3.4 3.2-4.8 g/dL Thyroid Stimulating Hormone (TSH) 0.66 0.55-4.78 uIU/mL Test 06/02/25 20:02 06/02/25 19:57 06/02/25 18:18 06/02/25 18:08 Range/Units POC Glucose 166 H 70-106 mg/dl Troponin I High Sensitivity 101 *H 107 *H </=34 ng/L Influenza Type A Antigen Negative Negative Influenza Type B Antigen Negative Negative SARS-CoV-2 Antigen (Rapid) Negative NEGATIVE Sodium Level 142 136-145 mmol/L Potassium Level 4.2 3.5-5.1 mmol/L Chloride Level 103 98-107 mmol/L Carbon Dioxide Level 27 20-31 mmol/L Anion Gap 12 5-15 Blood Urea Nitrogen 69 H 9-23 mg/dL Creatinine 4.65 H 0.550-1.02 mg/dL Glomerular Filtration Rate Calc 9 >90 mL/min BUN/Creatinine Ratio 14.8 10.0-20.0 Serum Glucose 171 H 74-106 mg/dL Calcium Level 10.3 8.7-10.4 mg/dL Phosphorus Level 5.2 H 2.4-5.1 mg/dL Magnesium Level 2.4 1.6-2.6 mg/dL Test 06/02/25 10:54 06/02/25 09:18 06/02/25 08:49 06/02/25 08:46 Range/Units Lactic Acid Level 2.1 *H 4.7 *H 0.4-2.0 mmol/L Blood Gas Specimen Type Arterial Blood Gas Sample Site Right radial Blood Gas Patient Temperature 37.0 Arterial Blood Date Drawn [id number] Arterial Blood pH 7.394 7.350-7.450 Arterial Blood Partial Pressure CO2 41.6 32.0-45.0 mmHg Arterial Blood Partial Pressure O2 143.7 H 83.0-108.0 mmHg Arterial Blood HCO3 24.8 21.0-28.0 mmol/L Arterial Blood Oxygen Saturation 98.4 H 94.0-98.0 % Arterial Blood Base Excess -0.1 -2.0-3.0 mmol/L Arterial Blood Oxyhemoglobin 96.8 94.0-98.0 % Arterial Blood Carboxyhemoglobin 0.9 0.5-1.5 % Arterial Blood Methemoglobin 0.7 0.0-1.5 % Dagoberto Test Modified Blood Gas Total Hemoglobin 7.90 L 12.0-16.0 g/dL Blood Gas Set Respiration Rate 16.0 Blood Gas Modality Vent - ac FiO2 % 100.0 Blood Gas Tidal Volume 500.0 Blood Gas PEEP or CPAP 5.0 Urine Color Light-yellow Yellow Urine Clarity Turbid H Clear Urine pH 5.5 5.0-9.0 Urine Specific Stebbins 1.011 1.001-1.035 Urine Protein 1+ H Negative Urine Ketones Negative Negative Urine Blood Trace H Negative /uL Urine Nitrite Negative Negative Urine Bilirubin Negative Negative Urine Urobilinogen Normal Negative mg/dL Urine Leukocyte Esterase 2+ Negative /uL Urine RBC 5 0 - 4 /hpf Urine WBC Clumps Present None Seen /hpf Urine Microscopic WBC 92 H 0-5 /HPF Urine Squamous Epithelial Cells Few <5 /hpf Urine Bacteria Few H None Seen /hpf Urine Mucus Few None Seen Urine Glucose 2+ H Normal mg/dL Urine Opiates Screen Neg NEGATIVE Urine Fentanyl Screen Neg NEGATIVE Urine Barbiturates Screen Neg NEGATIVE Urine Phencyclidine Screen Neg NEGATIVE Urine Amphetamines Screen Neg NEGATIVE Urine Benzodiazepines Screen Neg NEGATIVE Urine Cocaine Screen Neg NEGATIVE Urine Cannabinoids Screen Neg NEGATIVE White Blood Count 14.2 H 4.4-10.8 10^3/uL Red Blood Count 2.62 L 4.0-5.20 10^6/uL Hemoglobin 8.0 L 12.2-16.2 g/dL Hematocrit 24.3 L 36.0-46.0 % Mean Corpuscular Volume 92.7 80.0-100.0 fL Mean Corpuscular Hemoglobin 30.5 28.0-32.0 pg Mean Corpuscular Hemoglobin Concent 32.9 32.0-36.0 g/dL Red Cell Distribution Width 17.7 H 11.8-14.3 % Platelet Count 299 140-450 10^3/uL Mean Platelet Volume 8.0 6.9-10.8 fL Neutrophils (%) (Auto) 81.6 H 37.0-80.0 % Lymphocytes (%) (Auto) 12.1 10.0-50.0 % Monocytes (%) (Auto) 5.0 0.0-12.0 % Eosinophils (%) (Auto) 0.9 0.0-7.0 % Basophils (%) (Auto) 0.4 0.0-2.0 % Neutrophils # (Auto) 11.6 H 1.6-8.6 10 ^3/uL Lymphocytes # (Auto) 1.7 0.4-5.4 10 ^3/uL Monocytes # (Auto) 0.7 0-1.3 10 ^3/uL Eosinophils # (Auto) 0.1 0-0.8 10 ^3/uL Basophils # (Auto) 0.1 0-0.2 10 ^3/uL Nucleated Red Blood Cells 0.2 % Prothrombin Time 10.9 9.3-11.8 sec Prothrombin Time INR 1.03 0.9-1.15 Activated Partial Thromboplast Time 23.1 L 24.5-34.5 SEC Sodium Level 141 136-145 mmol/L Potassium Level 4.3 3.5-5.1 mmol/L Chloride Level 101 98-107 mmol/L Carbon Dioxide Level 26 20-31 mmol/L Anion Gap 14 5-15 Blood Urea Nitrogen 62 H 9-23 mg/dL Creatinine 4.76 H 0.550-1.02 mg/dL Glomerular Filtration Rate Calc 9 >90 mL/min BUN/Creatinine Ratio 13.0 10.0-20.0 Serum Glucose 249 H 74-106 mg/dL Calcium Level 11.4 H 8.7-10.4 mg/dL Total Bilirubin 0.4 0.2-1.0 mg/dL Aspartate Amino Transferase (AST) 168 H 13-40 U/L Alanine Aminotransferase (ALT) 166 H 7-40 U/L Alkaline Phosphatase 97 46-116 U/L Troponin I High Sensitivity 23 </=34 ng/L B-Type Natriuretic Peptide 348.60 0-100 pg/mL Total Protein 6.8 5.7-8.2 g/dL Albumin 4.0 3.2-4.8 g/dL Assessment IMP: 1) Hemodynamically mediated acute kidney injury in the setting of hypotension, status post cardiac arrest 2) CKD stage five not on dialysis 3) coronary artery disease 4) status post cardiac arrest 5) diabetes REC: - agree with continue supportive measures. - should she require coronary angiography, she will likely need to initiate on chronic dialysis Given current marginal kidney function and premorbid stage 5 chronic kidney disease status. - we will continue to follow closely with you, recommendation for even fluid balance as tolerated. - plan to check urine studies, serial chemistry panels to follow GFR and electrolytes. - thank you for the consultation. Plan discussed with: Other JADE MIRELES MD Jun 03, 2025 09:09
[2025-06-03] MEDS: CEFEPIME 1GM/ 50ML 50 ML IV SCH (09:11)
[2025-06-03] MEDS: PANTOPRAZOLE 40 MG/10 ML VIAL INJ IV SCH (09:11)
--- NOTE | 2025-06-03 11:19 | DVHINCON2 ---
Date Seen: Jun 03, 2025 Referring Physician MD Jose Reason for Consultation Post CPR History of Present Illness 74-year-old female with extensive medical history, including hypertension, chronic heart failure with preserved ejection fraction, type 2 diabetes mellitus, coronary artery disease status post three-vessel stenting (RCA, LCx, LAD), CKD stage 5, and blindness, was brought to the emergency department by EMS for evaluation of chest pain, and shortness of breath. According to the daughter, the patient had been experiencing intermittent chest discomfort associated with jaw pain for approximately one month, which acutely worsened yesterday while using the restroom. In the emergency department, the patient coded, ACLS was initiated, the patient received one dose of epinephrine and three doses of sodium bicarb. Return of spontaneous circulation was achieved. On assessment, the patient is currently intubated and remains on mechanical ventilation. Initial 12 lead ECG showed normal sinus rhythm with prolonged QTc. Echocardiogram revealed vegetation, raising concern for infective endocarditis. Troponins are elevated 107/101. Past Medical History As stated in HPI Past Surgical History Left heart catheterization Family History: FH: congestive heart failure G8 MOTHER Family History Reviewed, non-contributory to the management of this case. Social History The patient lives at home, denies smoking, alcohol or illicit drugs abuse. Allergies: Coded Allergies: NO KNOWN ALLERGIES (Unverified , 08/26/19) Home Meds Active Scripts Cefdinir (Cefdinir) 300 Mg Cap, 1 CAP PO BID for 5 Days, #10 CAP Prov:JEREMIAS JORDAN MD 03/28/25 Reported Medications Multiple Vitamins W/ Minerals (Multivitamin) 1 Tab Tab, 1 TAB PO DAILY, TAB 03/27/25 Aspirin (Aspirin) 81 Mg Chw, 81 MG PO DAILY, TAB.CHEW 03/27/25 Famotidine (Acid Vascular Technologist Sonographer) 10 Mg Tab, 10 MG PO DAILY 03/27/25 Furosemide (Furosemide) 20 Mg Tab, 1 TAB PO BID 03/27/25 Hydralazine HCl (Hydralazine HCl) 25 Mg Tab, 1 TAB PO TID 03/27/25 1, 25 Dihydroxycholecalciferol (ROCALTROL CAPSULE) 0.25 Mcg Cp, 1 CAP PO DAILY 03/27/25 Hydrocodone-Acetaminophen (Hydrocodone/Acetaminophen 5-325 mg) 1 Tab Tab, 1 TAB PO BIDPRN PRN 03/27/25 Mirtazapine (Mirtazapine Oral Disintegrating Tablet) 15 Mg Tab, 1 TAB PO DAILY 03/27/25 Carvedilol (Carvedilol) 12.5 Mg Tab, 1 TAB PO BID 03/27/25 Sitagliptin (Sitagliptin) 25 Mg Tab, 1 TAB PO DAILY 03/27/25 Amlodipine Besylate (Amlodipine Besylate) 5 Mg Tab, 1 TAB PO DAILY 03/27/25 Sodium Bicarbonate (Sodium Bicarbonate) 650 Mg Tab, 3 TAB PO TID 03/27/25 Glipizide (Glipizide) 5 Mg Tab, 5 MG PO BID for 30 Days, MG 08/26/19 Atorvastatin Calcium (ATORVASTATIN CALCIUM) 40 Mg Tab, 40 MG PO DAILY, TAB 08/26/19 Cilostazol (Cilostazol) 100 Mg Tab, 100 MG PO BID for 30 Days, MG 08/26/19 Current Medications Current Medications Medications (Trade) Dose Ordered Sig/Rosa Route PRN Reason Start Time Stop Time Status Last Admin Cefepime HCl 50 ml @ 12.5 mls/hr DAILY IV 06/03/25 10:00 06/03/25 09:11 Diagnostic Test (Pha) (Accu-Chek Comfort Curve T) 1 strip Q6HR 06/02/25 18:00 06/02/25 17:30 DC Insulin Human Regular (InsuLIN R) Q4HR SC 06/02/25 18:00 06/02/25 17:30 DC Dextrose 50 ml UD PRN IV Blood Sugar LESS THAN 60 06/02/25 17:30 06/02/25 17:30 DC Pantoprazole Sodium (Protonix) 40 mg DAILY IV 06/03/25 10:00 06/03/25 09:11 Insulin Human Regular (InsuLIN R) Q6HR SC 06/02/25 18:00 06/02/25 20:09 Dextrose 50 ml UD PRN IV Blood Sugar LESS THAN 60 06/02/25 17:45 Diagnostic Test (Pha) (Accu-Chek Comfort Curve T) 1 strip Q6HR 06/02/25 18:00 06/03/25 06:00 Furosemide (Lasix Injection) 40 mg BIDD IV 06/02/25 22:00 06/02/25 19:09 DC Aspirin 81 mg DAILY PO 06/02/25 19:00 06/03/25 09:11 Furosemide (Lasix Injection) 80 mg BIDD IV 06/02/25 22:00 06/03/25 06:17 Review of Systems Constitutional: No symptom reported Ears, Nose, & Throat: No symptom reported Eyes: No symptom reported Neurological: No symptoms reported Pulmonary/Respiratory: No symptom reported Cardiovascular: Chest pain, jaw pain Gastrointestinal: No symptom reported Genitourinary: No symptom reported Musculoskeletal: No symptom reported Skin: No symptom reported Psychiatric: No symptom reported Endocrine: No symptom reported Hemotologic/Lymphatic: No symptom reported Vital Signs Vital Signs Date Time Temp Pulse Resp B/P (MAP) Pulse Ox O2 Delivery O2 Flow Rate FiO2 06/03/25 10:30 79 16 126/55 (78) 97 06/03/25 10:00 30 06/03/25 09:23 98.6 98.6 06/03/25 08:00 Mechanical Ventilator+ 06/02/25 09:00 70 Physical Exam GENERAL: Intubated, sedated, critically ill HEAD: Head is normocephalic and atraumatic. EYES: Pupils reactive ENT: Moist mucous membranes. NECK: Supple, No masses, Full range of motion. RESPIRATORY: Intubated, ventilator support, breath sounds present bilaterally CV: Regular rate and rhythm. Murmurs GI/: Active bowel sounds, soft, nondistended, nontender. INTEGUMENTARY: Warm and dry. No obvious rashes. NEUROLOGIC: Pupils reactive, no spontaneous movement noted Labs/Diagnostic Data Labs Test 06/03/25 07:10 06/03/25 05:56 06/03/25 02:50 06/02/25 19:57 Range/Units Blood Gas Specimen Type Arterial Blood Gas Sample Site Right radial Blood Gas Patient Temperature 37.0 Arterial Blood Date Drawn [id number] Arterial Blood pH 7.480 H 7.350-7.450 Arterial Blood Partial Pressure CO2 32.5 32.0-45.0 mmHg Arterial Blood Partial Pressure O2 62.1 L 83.0-108.0 mmHg Arterial Blood HCO3 23.7 21.0-28.0 mmol/L Arterial Blood Oxygen Saturation 90.2 L 94.0-98.0 % Arterial Blood Base Excess 0.6 -2.0-3.0 mmol/L Arterial Blood Oxyhemoglobin 89.7 L 94.0-98.0 % Arterial Blood Carboxyhemoglobin 0.2 L 0.5-1.5 % Arterial Blood Methemoglobin 0.3 0.0-1.5 % Dagoberto Test Modified Blood Gas Total Hemoglobin 10.30 L 12.0-16.0 g/dL Blood Gas Set Respiration Rate 16.0 Blood Gas Modality Vent - ac FiO2 % 30.0 Blood Gas Tidal Volume 500.0 Blood Gas PEEP or CPAP 5.0 POC Glucose 102 70-106 mg/dl White Blood Count 9.7 # 4.4-10.8 10^3/uL Red Blood Count 2.16 L 4.0-5.20 10^6/uL Hemoglobin 6.7 #*L 12.2-16.2 g/dL Hematocrit 19.7 #L 36.0-46.0 % Mean Corpuscular Volume 91.1 80.0-100.0 fL Mean Corpuscular Hemoglobin 31.2 28.0-32.0 pg Mean Corpuscular Hemoglobin Concent 34.3 32.0-36.0 g/dL Red Cell Distribution Width 17.4 H 11.8-14.3 % Platelet Count 252 140-450 10^3/uL Mean Platelet Volume 8.0 6.9-10.8 fL Neutrophils (%) (Auto) 81.7 H 37.0-80.0 % Lymphocytes (%) (Auto) 10.5 10.0-50.0 % Monocytes (%) (Auto) 7.3 0.0-12.0 % Eosinophils (%) (Auto) 0.1 0.0-7.0 % Basophils (%) (Auto) 0.4 0.0-2.0 % Neutrophils # (Auto) 7.9 1.6-8.6 10 ^3/uL Lymphocytes # (Auto) 1.0 0.4-5.4 10 ^3/uL Monocytes # (Auto) 0.7 0-1.3 10 ^3/uL Eosinophils # (Auto) 0 0-0.8 10 ^3/uL Basophils # (Auto) 0 0-0.2 10 ^3/uL Nucleated Red Blood Cells 0.1 % Prothrombin Time 11.5 9.3-11.8 sec Prothrombin Time INR 1.09 0.9-1.15 Activated Partial Thromboplast Time 27.4 24.5-34.5 SEC Sodium Level 144 136-145 mmol/L Potassium Level 3.6 3.5-5.1 mmol/L Chloride Level 103 98-107 mmol/L Carbon Dioxide Level 27 20-31 mmol/L Anion Gap 14 5-15 Blood Urea Nitrogen 63 H 9-23 mg/dL Creatinine 4.68 H 0.550-1.02 mg/dL Glomerular Filtration Rate Calc 9 >90 mL/min BUN/Creatinine Ratio 13.5 10.0-20.0 Serum Glucose 108 H 74-106 mg/dL Calcium Level 10.3 8.7-10.4 mg/dL Phosphorus Level 5.1 2.4-5.1 mg/dL Magnesium Level 2.3 1.6-2.6 mg/dL Total Bilirubin 0.6 0.2-1.0 mg/dL Aspartate Amino Transferase (AST) 90 H 13-40 U/L Alanine Aminotransferase (ALT) 114 H 7-40 U/L Alkaline Phosphatase 60 46-116 U/L Total Protein 6.0 5.7-8.2 g/dL Albumin 3.4 3.2-4.8 g/dL Thyroid Stimulating Hormone (TSH) 0.66 0.55-4.78 uIU/mL Troponin I High Sensitivity 101 *H </=34 ng/L Test 06/02/25 18:18 06/02/25 10:54 06/02/25 08:49 06/02/25 08:46 Range/Units Influenza Type A Antigen Negative Negative Influenza Type B Antigen Negative Negative SARS-CoV-2 Antigen (Rapid) Negative NEGATIVE Lactic Acid Level 2.1 *H 0.4-2.0 mmol/L Urine Color Light-yellow Yellow Urine Clarity Turbid H Clear Urine pH 5.5 5.0-9.0 Urine Specific [place] 1.011 1.001-1.035 Urine Protein 1+ H Negative Urine Ketones Negative Negative Urine Blood Trace H Negative /uL Urine Nitrite Negative Negative Urine Bilirubin Negative Negative Urine Urobilinogen Normal Negative mg/dL Urine Leukocyte Esterase 2+ Negative /uL Urine RBC 5 0 - 4 /hpf Urine WBC Clumps Present None Seen /hpf Urine Microscopic WBC 92 H 0-5 /HPF Urine Squamous Epithelial Cells Few <5 /hpf Urine Bacteria Few H None Seen /hpf Urine Mucus Few None Seen Urine Glucose 2+ H Normal mg/dL Urine Opiates Screen Neg NEGATIVE Urine Fentanyl Screen Neg NEGATIVE Urine Barbiturates Screen Neg NEGATIVE Urine Phencyclidine Screen Neg NEGATIVE Urine Amphetamines Screen Neg NEGATIVE Urine Benzodiazepines Screen Neg NEGATIVE Urine Cocaine Screen Neg NEGATIVE Urine Cannabinoids Screen Neg NEGATIVE B-Type Natriuretic Peptide 348.60 0-100 pg/mL Microbiology Date/Time Source Procedure Growth Status 06/02/25 08:54 Sputum Gram Stain Pending Resulted 06/02/25 08:54 Sputum Respiratory Culture - Preliminary Resulted 06/02/25 08:46 Blood Blood Culture - Preliminary NO GROWTH AFTER 24 HOURS OF INCUBATION. Resulted PROCEDURE(s): CXRP - CHEST PORTABLE REASON: POST INTUBATION ORDER NUMBER(s): [id number], ACCESSION NUMBER(s): [id number] XY CHEST PORTABLE, HISTORY: POST INTUBATION COMPARISON: XY CHEST PORTABLE on DOS: 03/28/25, XY CHEST PORTABLE on DOS: 03/27/25 XY CHEST PORTABLE on DOS: 03/28/25, XY CHEST PORTABLE on DOS: 03/27/25 TECHNICAL DATA: 1 view of the chest was obtained. FINDINGS: Lines and tubes: ET and NG tubes are in appropriate position. Cardiomediastinal silhouette: normal Pulmonary vasculature: normal Lung expansion: normal Lung airspace: Perihilar airspace opacities. Lung interstitium: Prominent Pleura: normal Pneumothorax: no Bones: Unremarkable Other: no IMPRESSION: ET and NG tubes are in appropriate position. Pulmonary edema. Assessment 1. Cardiac arrest - ROSC achieved * Likely secondary to myocardial ischemia versus arrhythmia in the setting of extensive CAD and elevated troponin levels * Monitor for post resuscitation complications 2. Suspected infective endocarditis with vegetation on transthoracic echo * Source unclear, high suspicion given immunocompromised state and cardiac history * GIRISH scheduled for tomorrow * Started on vancomycin. Infectious Disease on board * Echo pending official read 3. Elevated troponin * Likely type 2 [place] vs ischemia post-cardiac arrest * Continue to monitor 4. Prolonged QTc on ECG * Monitor for torsades or ventricular arrhythmias 5. HFpEF. CAD, hyperlipidemia, diabetes type 2 * Repeated echocardiogram 6. CKD stage 5 * Nephrology on board 7. Low hemoglobin hematocrit * Currently receiving blood transfusion Plan/Recommendation (Dr. Robison ): The patient remains in the post cardiac arrest state after successful resuscitation and is currently intubated and sedated in ICU. She is being transfused for severe anemia with a hemoglobin of 6, which possesses significant risk in the context of known CAD, recent cardiac arrest, and ongoing myocardial ischemia as indicated by elevated troponins. Ongoing monitoring for transfusion reaction and volume overload given her history of HFpEF and ESRD. The plan for GIRISH was discussed with the patient's daughter, who is legally authorized agricultural sales representative given the patient's critical condition and current intubation status. The nature of procedure to obtain detailed images of the heart was explained. Potential risk including aspiration, esophageal irritation or perforation, bleeding, and adverse reaction were discussed, along with benefits such as identifying but overall vegetations, assessing cardiac function, and clarifying the source of possible infective endocarditis. The daughter verbalized understanding of the procedure, its risks and benefits, and provided verbal consent to proceed. Continue close cardiac surveillance. This medical document was created using an electronic medical record system with voice recognition software and computerized dictation system. Although this document has been carefully reviewed, there might still be some phonetic and typographical errors. Occasional wrong-word or ``sound-alike substitutions may have occurred due to the inherent limitations of voice recognition software. These areas are purely typographical due to imperfections of the software programs and do not reflect any compromise in the patient's medical care. Please read the chart carefully and recognize, using context, where these substitutions have occurred. Plan discussed with: Patient Plan discussed with: Patient, Daughter NYHA Physical activity limitations: Class1(None)absent sob, Date of Service: Jun 03, 2025 Billing Provider: NATALIE ROBISON Sr., MD Cardiology Common Codes: CONSULT ONLY GANGA BOLIVAR CERTIFIED ORTHOTIST PRACTICE MANAGER Jun 03, 2025 11:19
[2025-06-03 12:13] LABS: Triglycerides 99 mg/dL (< 150)
[2025-06-03 12:16] LABS: Cholesterol 105 mg/dL (< 200)
[2025-06-03 12:20] LABS: HDL Cholesterol 34 mg/dL (40-59)
[2025-06-03 13:35] LABS: Base Excess 1.7 mmol/L (-2.0-3.0)
[2025-06-03] MEDS ORDERED: VANCOMYCIN PER PHARMACY 0 MG IV SCH ×2 (14:15→14:30)
--- NOTE | 2025-06-03 18:22 | DVHPN2 ---
Subjective I am assuming the care of the patient from today onwards who was under the care of the hospitalist team. Detailed sign out obtained. Chart reviewed. Patient's family member was updated at bedside. Patient's remains intubated and sedated. Changes from previous H/P or p: No Changes Objective Vitals Vital Signs Date Time Temp Pulse Resp B/P (MAP) Pulse Ox O2 Delivery O2 Flow Rate FiO2 06/03/25 16:00 16 97 Mechanical Ventilator+ 30 30 06/03/25 16:00 76 122/55 (77) 06/03/25 14:00 98.1 98.1 06/02/25 09:00 70 Intake/Output Intake and Output 06/03/25 07:00 Intake Total 442 ml Output Total 2220 ml Balance -1778 ml Intake Oral 0 ml IV Total 442 ml Output Urine Total 2220 ml Exam HEENT pupils are reactive Neck is supple CV is S1-S2 regular rate and rhythm Respiratory diminished breath sounds bases GI positive bowel sound Extremity trace edema GROUP INSURANCE SPECIALIST intubated and sedated Medications Current Medications Medications Dose Ordered Sig/Rosa Route Start Time Stop Time Status Last Admin Dose Admin Cefepime HCl 50 ml @ 12.5 mls/hr DAILY IV 06/03/25 10:00 06/03/25 09:11 12.5 MLS/HR Midazolam HCl 50 ml @ 1 mls/hr Q24H IV 06/02/25 08:45 06/03/25 15:19 9 MLS/HR Fentanyl Citrate 250 ml @ 2.5 mls/hr Q24H IV 06/02/25 09:05 06/02/25 09:10 2.5 MLS/HR Pantoprazole Sodium 40 mg DAILY IV 06/03/25 10:00 06/03/25 09:11 40 MG Insulin Human Regular Q6HR SC 06/02/25 18:00 06/02/25 20:09 3 UNITS Dextrose 50 ml UD PRN IV 06/02/25 17:45 Diagnostic Test (Pha) 1 strip Q6HR 06/02/25 18:00 06/03/25 12:22 1 STRIP Aspirin 81 mg DAILY PO 06/02/25 19:00 06/03/25 09:11 81 MG Furosemide 80 mg BIDD IV 06/03/25 18:00 Vancomycin HCl 0 ml @ 0 mls/hr UD IV 06/03/25 14:30 Laboratory Results Laboratory Tests 06/03/25 02:50 Chemistry Test 06/03/25 02:50 Albumin 3.4 g/dL (3.2-4.8) Calcium Level 10.3 mg/dL (8.7-10.4) Magnesium Level 2.3 mg/dL (1.6-2.6) Phosphorus Level 5.1 mg/dL (2.4-5.1) Total Protein 6.0 g/dL (5.7-8.2) Coagulation Test 06/03/25 02:50 06/03/25 14:09 Prothrombin Time 11.5 sec (9.3-11.8) Prothrombin Time INR 1.09 (0.9-1.15) Activated Partial Thromboplast Time 27.4 SEC (24.5-34.5) D-Dimer, Quantitative 7.19 mg/L FEU (0.0-0.49) H Lipid panel Test 06/03/25 02:50 Cholesterol Level 105 mg/dL (< 200) HDL Cholesterol 34 mg/dL (40-59) L Triglycerides Level 99 mg/dL (< 150) Cardiac Markers Test 06/03/25 02:50 B-Type Natriuretic Peptide 444.26 pg/mL (0-100) LFT Test 06/03/25 02:50 Alanine Aminotransferase (ALT) 114 U/L (7-40) H Alkaline Phosphatase 60 U/L (46-116) Aspartate Amino Transferase (AST) 90 U/L (13-40) H Total Bilirubin 0.6 mg/dL (0.2-1.0) HgA1c, TSH Test 06/03/25 02:50 Hemoglobin A1c < 3.8 % A1C (<5.7) Thyroid Stimulating Hormone (TSH) 0.66 uIU/mL (0.55-4.78) Urinalysis Test 06/02/25 08:49 Urine Color Light-yellow (Yellow) Urine Clarity Turbid (Clear) H Urine pH 5.5 (5.0-9.0) Urine Specific [place] 1.011 (1.001-1.035) Urine Protein 1+ (Negative) H Urine Ketones Negative (Negative) Urine Blood Trace /uL (Negative) H Urine Nitrite Negative (Negative) Urine Bilirubin Negative (Negative) Urine Urobilinogen Normal mg/dL (Negative) Urine Leukocyte Esterase 2+ /uL (Negative) Urine RBC 5 /hpf (0 - 4) Urine WBC Clumps Present /hpf (None Seen) Urine Microscopic WBC 92 /HPF (0-5) H Urine Squamous Epithelial Cells Few /hpf (<5) Urine Bacteria Few /hpf (None Seen) H Urine Mucus Few (None Seen) Urine Glucose 2+ mg/dL (Normal) H Blood Gas Results Test 06/03/25 07:10 06/03/25 13:23 Arterial Blood pH 7.480 (7.350-7.450) 7.416 (7.350-7.450) FiO2 % 30.0 30.0 Microbiology Microbiology Date/Time Source Procedure Growth Status 06/02/25 21:15 Nose MRSA Screen - Final Complete 06/02/25 08:54 Sputum Gram Stain Pending Resulted 06/02/25 08:54 Sputum Respiratory Culture - Preliminary Resulted 06/02/25 08:49 Voided Urine Urine Culture - Preliminary Resulted 06/02/25 08:46 Blood Blood Culture - Preliminary NO GROWTH AFTER 24 HOURS OF INCUBATION. Resulted Assessment/Plan Assessment/Plan 74-year-old female with a known history of hypertension dyslipidemia, congestive heart failure, diabetes mellitus type 2, coronary artery disease status post RCA/lad/left circumflex stent initially admitted to hospital with shortness of breaths found to have 1. Cardiopulmonary arrest status post ACLS protocol with ROSC 2. Suspected infective endocarditis with a vegetation on transthoracic echo 3. Acute hypoxic respiratory failure requiring intubation on ventilator support 4. Chronic congestive heart failure 5. Possible fluid overload 6. CKD stage 5 7. Anemia -continue vent support, daily ABG, chest x-ray, Infectious Disease consultation cardiology consultation and pulmonary consultation Plan discussed with: Other My Orders Orders - AUGIE ERICKSON MD Procedure Category Date Status Time *Consult CONS 06/03/25 Transmitted / 11:17 * Wound Consult CONS 06/03/25 Transmitted 12:03 Vancomycin Per PHA 06/03/25 In Process Pharmacy 14:30 * Infectious [place]- Dr. SARMIENTO 06/03/25 Transmitted Pool [place] 14:30 Vancomycin,Random LAB 06/04/25 Verified 05:00 Date of Service: Jun 03, 2025 Billing Provider: AUGIE ERICKSON MD Common Visit Codes: [id number] INP/OBS CARE(HIGH) AUGIE ERICKSON MD Jun 03, 2025 18:22
[2025-06-03] MEDS: FUROSEMIDE 100 MG/10ML VIAL IV SCH (18:34)
--- NOTE | 2025-06-03 18:44 | DVHSR ---
APPROVED REPORT EXAM: LIMITED Two-dimensional and M-mode echocardiogram. Blood Pressure: 121/54 mmHg INDICATION Cardiac Arrest RISK FACTORS Height: 5', Weight: 139 DIMENSIONS LVDd3.7 (3.8-5.7cm)LA (2D) (1.9-4.0cm)Aortic Root (2.0-3.7cm) LVDs1.7 (2.5-4.0cm)LA (MM) (1.9-4.0cm)Aortic Cusp Exc (1.5-2.0cm) EF (%) 55.0 (55-70%)Rt. Atrium (1.9-4.0cm)Asc. Aorta cm IVSd1.2 (0.7-1.1cm)RV (D) (1.8-2.4cm) PWd1.2 (0.7-1.1cm) Mitral Valve MitralMitral Stenosis E wave1.81m/sMV Mean GR.6mmHg A wave1.78m/sMV Peak GR.131mmHg E/A ratio1.02D MVAcm2 DECEL [id number] 1/2 Wzor21ov IVRTmsDop MVA3.51cm2 Aortic Valve Aortic ValveAortic Stenosis V10.90m/Kenrick Mean GR.15mmHg V22.58m/Ken[place] Peak GR.27mmHg LVOT Diameter2.1 (1.8-2.4cm)Doppler AVA1.21cm2 Conclusion Technically good study. Sinus rhythm. There appears to be left atrial enlargement. There is moderate thickening of the mitral leaflets. There appears to be a mobile vegetation at the base of the posterior mitral leaflet extending into the mid section of the posterior mitral leaflet w ith diminished excursion of the actual leaflet. There appears to be underlying mitral stenosis with diminished anterior leaflet function however thickening. There appears to be stenosis and thickening of the aortic valve leaflets as well with diminished excursion. The tricuspid appears to be structu rally normal. The pulmonic is not clearly visualized. Left ventricular systolic performance appears preserved at about 50% with normal RV function. There appears to be [id number] mitral insufficiency, there is some degree of aortic stenosis also noted. Doppler appears to be suboptimal for evaluation of the aortic stenosis. There is modera te tricuspid regurgitation. No pericardial effusion. Pedunculated vegetation noted in the posterior mitral leaflet as noted abov e.
[2025-06-03 18:57] LABS: Hematocrit 24.1 % (36.0-46.0); Hemoglobin 8.2 g/dL (12.2-16.2)
--- NOTE | 2025-06-03 19:57 | DVH ---
Bilateral lower extremity venous duplex Clinical History: R/O DVT Comparison: None Technique: Duplex Doppler evaluation of the deep venous systems of both lower extremities from the common femora l veins to the popliteal veins including color Doppler and spectral/pulsed waveform analysis was perf ormed. Findings: RIGHT SIDE: The common femoral vein demonstrates appropriate compressibility and waveform variability. There is compressibility/patency of the great saphenous vein at the proximal thigh. The femoral vein demonstrates appropriate compressibility and waveform variability. The deep femoral vein demonstrates appropriate compressibility and waveform variability. The popliteal vein demonstrates appropriate compressibility and waveform variability. There is normal compressibility at the tibioperoneal trunk. LEFT SIDE: The common femoral vein demonstrates appropriate compressibility and waveform variability. There is compressibility/patency of the great saphenous vein at the proximal thigh. The femoral vein demonstrates appropriate compressibility and waveform variability. The deep femoral vein demonstrates appropriate compressibility and waveform variability. The popliteal vein demonstrates appropriate compressibility and waveform variability. There is normal compressibility at the tibioperoneal trunk. Impression: No evidence of right or left femoropopliteal venous thrombosis.
--- NOTE | 2025-06-03 23:18 | DVHINCON2 ---
Date of service: Jun 03, [address] Garcia Reason for Consultation Acute hypoxic respiratory failure requiring mechanical ventilator. History of Present Illness Weekend coverage: A 74-year-old woman with past medical history of hypertension, diabetes mellitus, congestive heart failure, CAD s/p 3-vessel stenting, CKD stage 5, hyperlipidemia, and blindness who was brought in to ED on 06/02/25 by EMS due to jaw pain and shortness of breath. According to her daughters, pt had onset of jaw pain radiating to the right arm on day prior to presentation, which subsequently worsened. On the morning of presentation, she developed sudden shortness of breath that rapidly progressed over 20 minutes. EMS was called and found her in respiratory distress, but still alert and conversant during transport. Patient arrived at the ED at 08:10 AM. Cardiac arrest occurred at 08:13 AM. ACLS was initiated immediately. She required one round of defibrillation at 08:14 AM, one dose of epinephrine, and three doses of sodium bicarbonate. ROSC was a chieved at 08:19 AM. Pt was then transferred to the ICU for further management of post-arrest care and respiratory failure. Nephrology from [facility] has previously followed the patient and reportedly discussed future dialysis plans. Pt was seen at [facility] in March 2025 due to UTI and was sent home with cefdinir. Patient was admitted for further care, and pulmonary consultation is requested for evaluation and management of acute hypoxic respiratory failure requiring mechanical ventilator. Review of Systems: Unable to obtain d/t intubated status. Past Medical History: Congestive heart failure (EF 55%) Coronary artery disease s/p 3-vessel stenting (2018) Chronic kidney disease, not on hemodialysis Type 2 diabetes mellitus Hyperlipidemia Blindness HTN Past Surgical History: PCI with stenting (RCA, LCx, LAD) in 2019 Medications: Reviewed. Allergies: No known drug allergies. Family History: No family history of premature CAD. No family history of lung disorders. Social History: Nonsmoker. No alcohol or illicit drug use. Family History: FH: congestive heart failure G8 MOTHER Allergies: Coded Allergies: NO KNOWN ALLERGIES (Unverified , 08/26/19) Home Meds Active Scripts Cefdinir (Cefdinir) 300 Mg Cap, 1 CAP PO BID for 5 Days, #10 CAP Prov:JEREMIAS JORDAN MD 03/28/25 Reported Medications Multiple Vitamins W/ Minerals (Multivitamin) 1 Tab Tab, 1 TAB PO DAILY, TAB 03/27/25 Aspirin (Aspirin) 81 Mg Chw, 81 MG PO DAILY, TAB.CHEW 03/27/25 Famotidine (Acid Industrial Automation Specialist) 10 Mg Tab, 10 MG PO DAILY 03/27/25 Furosemide (Furosemide) 20 Mg Tab, 1 TAB PO BID 03/27/25 Hydralazine HCl (Hydralazine HCl) 25 Mg Tab, 1 TAB PO TID 03/27/25 1, 25 Dihydroxycholecalciferol (ROCALTROL CAPSULE) 0.25 Mcg Cp, 1 CAP PO DAILY 03/27/25 Hydrocodone-Acetaminophen (Hydrocodone/Acetaminophen 5-325 mg) 1 Tab Tab, 1 TAB PO BIDPRN PRN 03/27/25 Mirtazapine (Mirtazapine Oral Disintegrating Tablet) 15 Mg Tab, 1 TAB PO DAILY 03/27/25 Carvedilol (Carvedilol) 12.5 Mg Tab, 1 TAB PO BID 03/27/25 Sitagliptin (Sitagliptin) 25 Mg Tab, 1 TAB PO DAILY 03/27/25 Amlodipine Besylate (Amlodipine Besylate) 5 Mg Tab, 1 TAB PO DAILY 03/27/25 Sodium Bicarbonate (Sodium Bicarbonate) 650 Mg Tab, 3 TAB PO TID 03/27/25 Glipizide (Glipizide) 5 Mg Tab, 5 MG PO BID for 30 Days, MG 08/26/19 Atorvastatin Calcium (ATORVASTATIN CALCIUM) 40 Mg Tab, 40 MG PO DAILY, TAB 08/26/19 Cilostazol (Cilostazol) 100 Mg Tab, 100 MG PO BID for 30 Days, MG 08/26/19 Current Medications Current Medications Medications (Trade) Dose Ordered Sig/Rosa Route PRN Reason Start Time Stop Time Status Last Admin Cefepime HCl 50 ml @ 12.5 mls/hr DAILY IV 06/03/25 10:00 06/03/25 09:11 Pantoprazole Sodium (Protonix) 40 mg DAILY IV 06/03/25 10:00 06/03/25 09:11 Vancomycin HCl 0 ml @ 0 mls/hr UD IV 06/03/25 14:15 06/03/25 14:41 DC Furosemide (Lasix Injection) 80 mg BIDD IV 06/03/25 18:00 06/03/25 18:34 Vancomycin HCl 0 ml @ 0 mls/hr UD IV 06/03/25 14:30 Vital Signs Vital Signs Date Time Temp Pulse Resp B/P (MAP) Pulse Ox O2 Delivery O2 Flow Rate FiO2 06/03/25 23:00 99.1 87 16 142/66 (91) 95 210.4 06/03/25 22:26 30 06/03/25 22:00 Mechanical Ventilator+ 06/02/25 09:00 70 Physical Exam Gen.: Patient lying in bed in medical ICU. Sedated, intubated on mechanical ventilator. Head: Normocephalic, atraumatic. Eyes: PERRLA. Ears: Normal external anatomy. Throat: Endotracheal tube and orogastric tube in place. Neck: Supple, trachea midline. Chest: Transmitted breath sounds bilaterally. Decreased air entry bilaterally. No wheezing. Bibasilar crackles. Cardiovascular: Positive S1, positive S2. Regular rate and rhythm. Abdomen: Positive bowel sounds in all 4 quadrants. Soft, nontender, nondistended. : Mathews in place. Normal external genitalia. Rectal: Deferred. Skin: Warm, dry. Intact. Extremities: 2+ radial pulses bilaterally. No lower extremity edema. Neuro: Sedated. Labs/Diagnostic Data Labs Test 06/03/25 18:29 06/03/25 17:39 06/03/25 14:55 06/03/25 14:09 Range/Units Hemoglobin 8.2 #L 12.2-16.2 g/dL Hematocrit 24.1 #L 36.0-46.0 % POC Glucose 117 H 70-106 mg/dl Random Vancomycin Level 13.5 H 5-10 ug/mL D-Dimer, Quantitative 7.19 H 0.0-0.49 mg/L FEU Test 06/03/25 13:23 06/03/25 02:50 06/02/25 19:57 06/02/25 18:18 Range/Units Blood Gas Specimen Type Arterial Blood Gas Sample Site Right radial Blood Gas Patient Temperature 37.0 Arterial Blood Date Drawn [id number] Arterial Blood pH 7.416 7.350-7.450 Arterial Blood Partial Pressure CO2 42.1 32.0-45.0 mmHg Arterial Blood Partial Pressure O2 67.7 L 83.0-108.0 mmHg Arterial Blood HCO3 26.4 21.0-28.0 mmol/L Arterial Blood Oxygen Saturation 91.0 L 94.0-98.0 % Arterial Blood Base Excess 1.7 -2.0-3.0 mmol/L Arterial Blood Oxyhemoglobin 89.8 L 94.0-98.0 % Arterial Blood Carboxyhemoglobin 0.6 0.5-1.5 % Arterial Blood Methemoglobin 0.7 0.0-1.5 % Dagoberto Test Modified Blood Gas Total Hemoglobin 8.40 L 12.0-16.0 g/dL Blood Gas Set Respiration Rate 16.0 Blood Gas Modality Vent - ac FiO2 % 30.0 Blood Gas Tidal Volume 450.0 Blood Gas PEEP or CPAP 5.0 White Blood Count 9.7 # 4.4-10.8 10^3/uL Red Blood Count 2.16 L 4.0-5.20 10^6/uL Mean Corpuscular Volume 91.1 80.0-100.0 fL Mean Corpuscular Hemoglobin 31.2 28.0-32.0 pg Mean Corpuscular Hemoglobin Concent 34.3 32.0-36.0 g/dL Red Cell Distribution Width 17.4 H 11.8-14.3 % Platelet Count 252 140-450 10^3/uL Mean Platelet Volume 8.0 6.9-10.8 fL Neutrophils (%) (Auto) 81.7 H 37.0-80.0 % Lymphocytes (%) (Auto) 10.5 10.0-50.0 % Monocytes (%) (Auto) 7.3 0.0-12.0 % Eosinophils (%) (Auto) 0.1 0.0-7.0 % Basophils (%) (Auto) 0.4 0.0-2.0 % Neutrophils # (Auto) 7.9 1.6-8.6 10 ^3/uL Lymphocytes # (Auto) 1.0 0.4-5.4 10 ^3/uL Monocytes # (Auto) 0.7 0-1.3 10 ^3/uL Eosinophils # (Auto) 0 0-0.8 10 ^3/uL Basophils # (Auto) 0 0-0.2 10 ^3/uL Nucleated Red Blood Cells 0.1 % Prothrombin Time 11.5 9.3-11.8 sec Prothrombin Time INR 1.09 0.9-1.15 Activated Partial Thromboplast Time 27.4 24.5-34.5 SEC Sodium Level 144 136-145 mmol/L Potassium Level 3.6 3.5-5.1 mmol/L Chloride Level 103 98-107 mmol/L Carbon Dioxide Level 27 20-31 mmol/L Anion Gap 14 5-15 Blood Urea Nitrogen 63 H 9-23 mg/dL Creatinine 4.68 H 0.550-1.02 mg/dL Glomerular Filtration Rate Calc 9 >90 mL/min BUN/Creatinine Ratio 13.5 10.0-20.0 Serum Glucose 108 H 74-106 mg/dL Hemoglobin A1c < 3.8 <5.7 % A1C Calcium Level 10.3 8.7-10.4 mg/dL Phosphorus Level 5.1 2.4-5.1 mg/dL Magnesium Level 2.3 1.6-2.6 mg/dL Total Bilirubin 0.6 0.2-1.0 mg/dL Aspartate Amino Transferase (AST) 90 H 13-40 U/L Alanine Aminotransferase (ALT) 114 H 7-40 U/L Alkaline Phosphatase 60 46-116 U/L B-Type Natriuretic Peptide 444.26 0-100 pg/mL Total Protein 6.0 5.7-8.2 g/dL Albumin 3.4 3.2-4.8 g/dL Triglycerides Level 99 < 150 mg/dL Cholesterol Level 105 < 200 mg/dL LDL Cholesterol 49 < 100 mg/dL HDL Cholesterol 34 L 40-59 mg/dL Thyroid Stimulating Hormone (TSH) 0.66 0.55-4.78 uIU/mL Troponin I High Sensitivity 101 *H </=34 ng/L Influenza Type A Antigen Negative Negative Influenza Type B Antigen Negative Negative SARS-CoV-2 Antigen (Rapid) Negative NEGATIVE Test 06/02/25 10:54 06/02/25 08:49 Range/Units Lactic Acid Level 2.1 *H 0.4-2.0 mmol/L Urine Color Light-yellow Yellow Urine Clarity Turbid H Clear Urine pH 5.5 5.0-9.0 Urine Specific [place] 1.011 1.001-1.035 Urine Protein 1+ H Negative Urine Ketones Negative Negative Urine Blood Trace H Negative /uL Urine Nitrite Negative Negative Urine Bilirubin Negative Negative Urine Urobilinogen Normal Negative mg/dL Urine Leukocyte Esterase 2+ Negative /uL Urine RBC 5 0 - 4 /hpf Urine WBC Clumps Present None Seen /hpf Urine Microscopic WBC 92 H 0-5 /HPF Urine Squamous Epithelial Cells Few <5 /hpf Urine Bacteria Few H None Seen /hpf Urine Mucus Few None Seen Urine Glucose 2+ H Normal mg/dL Urine Opiates Screen Neg NEGATIVE Urine Fentanyl Screen Neg NEGATIVE Urine Barbiturates Screen Neg NEGATIVE Urine Phencyclidine Screen Neg NEGATIVE Urine Amphetamines Screen Neg NEGATIVE Urine Benzodiazepines Screen Neg NEGATIVE Urine Cocaine Screen Neg NEGATIVE Urine Cannabinoids Screen Neg NEGATIVE Microbiology Date/Time Source Procedure Growth Status 06/02/25 21:15 Nose MRSA Screen - Final Complete 06/02/25 08:54 Sputum Gram Stain Pending Resulted 06/02/25 08:54 Sputum Respiratory Culture - Preliminary Resulted 06/02/25 08:49 Voided Urine Urine Culture - Preliminary Resulted 06/02/25 08:46 Blood Blood Culture - Preliminary NO GROWTH AFTER 24 HOURS OF INCUBATION. Resulted Assessment Impression: Acute hypoxic respiratory failure On mechanical ventilator S/p cardiac arrest with ROSC Coronary artery disease, s/p stents Congestive heart failure Elevated troponin Anemia Plan: s/p intubation on mechanical ventilator. CXR image and report reviewed. Pulmonary vascular congestion. Devices in place. ABG reviewed, notable for alkalemia. On AC mode; RR 16, VT 500--> 450, PEEP 5, FiO2 30% Titrate FIO2 to keep O2 saturation above 90%. VAP bundle. Daily ABG and CXR while intubated Sedate for ventilator synchrony Follow up Cardiology recommendations Continue antibiotics. F/u cultures. Pressors as necessary for hemodynamic support Titrate to keep mean arterial pressure greater than 65 mmHg. Monitor hemoglobin - pt received 1 unit PRBC Monitor renal function Monitor electrolytes. Supplement as necessary. Monitor ins and outs. Nephrology recs appreciated GI/DVT prophylaxis. Prognosis: Poor given patient's multiple co-morbidities. Condition: Critical Rest of plan per hospitalist and other consultants. A total of 35 minutes of critical care time was spent reviewing the patient record, examining the patient, making a diagnostic and therapeutic plan, discussing this plan with the medical personnel, following up on diagnostic studies and following the patient for clinical stability excluding any and all procedures. At least 50% of this time was spent in direct, [id number] contact. Thank you Dr. Garcia for allowing me to participate in this patient's care. Further recommendations will depend on the patient's clinical course. Please do not hesitate to contact me if you have any questions or concerns. This medical document was created using an electronic medical record system with Dragon computerized dictation system. Although these documentations are being carefully reviewed, there may still be some phonetic and typographical changes. The errors are purely typographical, due to imperfection on the software program, and do not reflect any compromise in the patient's medical care. Plan discussed with: Other (ELISA Peraza/Dr. Garcia) MANOLO HERNDON MD Jun 03, 2025 23:18
[2025-06-04] VITALS (109 sets, daily range): BP systolic 84–142; BP diastolic 36–71; PULSE 62–100; RESP 13–41; TEMP 97–100.6; O2SAT 89–100
[2025-06-04] MEDS: fentaNYL Drip 2500mCg/250mlNS 250 ML IV ONE (03:35)
[2025-06-04 03:39] LABS: Hematocrit 24.6 % (36.0-46.0); Hemoglobin 8.3 g/dL (12.2-16.2); Mean Corpuscular Hemoglobin 30.2 pg (28.0-32.0); Mean Corpuscular Volume 89.1 fL (80.0-100.0); Nucleated Red Blood Cells % 0.1 %
[2025-06-04 03:49] LABS: Chloride 103 mmol/L (98-107); Potassium 3.6 mmol/L (3.5-5.1); Sodium 145 mmol/L (136-145)
[2025-06-04 03:50] LABS: Anion Gap 13 (5-15); Calcium 10.0 mg/dL (8.7-10.4); Carbon Dioxide 29 mmol/L (20-31)
[2025-06-04 03:55] LABS: BUN/Creatinine Ratio 14.3 (10.0-20.0)
[2025-06-04 03:57] LABS: Blood Urea Nitrogen 71 mg/dL (9-23); Glucose 124 mg/dL (74-106)
[2025-06-04] MEDS: ACETAMINOPHEN IV 1000 MG/100ML (10MG/ML) IV ONE (05:14)
[2025-06-04 07:04] LABS: Base Excess 1.8 mmol/L (-2.0-3.0)
[2025-06-04] MEDS: VANCOMYCIN 500mg/100mL 100 ML IV ONE (09:28)
--- NOTE | 2025-06-04 13:41 | DVHPN2 ---
Progress Note - Dictate Date Seen: Jun 04, 2025 Medical Necessity Reason Pt with a Central, PICC or Fol: Yes The following are medically ne: Stevens Catheter Reason for stevens catheter: Strict I&O Subjective Remains intubated, sedated, noted plans for GIRISH. Urine volumes nonoliguric. vital signs Vital Sign Date Time Temp Pulse Resp B/P (MAP) Pulse Ox O2 Delivery O2 Flow Rate FiO2 06/04/25 12:09 65 16 119/51 (73) 97 30 06/04/25 11:56 Mechanical Ventilator+ 06/04/25 11:45 97.0 97.0 06/02/25 09:00 70 Total Intake and Output 06/03/25 06/03/25 06/04/25 15:00 23:00 07:00 Intake Total 453.0 ml 105 ml 104 ml Output Total 1450 ml 1475 ml Balance 453.0 ml -1345 ml -1371 ml medications Current Medications Medications Dose Ordered Sig/Rosa Route Start Time Stop Time Status Last Admin Dose Admin Cefepime HCl 50 ml @ 12.5 mls/hr DAILY IV 06/03/25 10:00 06/04/25 10:39 12.5 MLS/HR Midazolam HCl 50 ml @ 1 mls/hr Q24H IV 06/02/25 08:45 06/04/25 10:02 8 MLS/HR Fentanyl Citrate 250 ml @ 2.5 mls/hr Q24H IV 06/02/25 09:05 06/04/25 07:14 5 MLS/HR Pantoprazole Sodium 40 mg DAILY IV 06/03/25 10:00 06/04/25 10:38 40 MG Insulin Human Regular Q6HR SC 06/02/25 18:00 06/04/25 00:24 2 UNITS Dextrose 50 ml UD PRN IV 06/02/25 17:45 Diagnostic Test (Pha) 1 strip Q6HR 06/02/25 18:00 06/04/25 11:58 1 STRIP Aspirin 81 mg DAILY PO 06/02/25 19:00 06/04/25 10:46 81 MG Furosemide 80 mg BIDD IV 06/03/25 18:00 06/04/25 06:52 80 MG Vancomycin HCl 0 ml @ 0 mls/hr UD IV 06/03/25 14:30 objective Gen: nad, sedated and intubated lungs: Occasional rhonchi cvs: no rub abd: soft, bowel sounds audible ext: no edema laboratory and microbiology Laboratory Tests 06/04/25 02:45 Test 06/04/25 02:45 Range/Units Serum Glucose 124 H 74-106 mg/dL Assessment/Plan IMP: 1) Hemodynamically mediated acute kidney injury in the setting of hypotension, status post cardiac arrest 2) CKD stage five not on dialysis 3) coronary artery disease 4) status post cardiac arrest 5) diabetes REC: - metabolic parameters acceptable, currently without urgent indication for dialysis initiation. - should she require coronary angiography, she will likely need to initiate on chronic dialysis Given current marginal kidney function and premorbid stage 5 chronic kidney disease status. - we will continue to follow closely with you. Ongoing discussions with family regarding goals of care. Dietary Evaluation Review Comments: 1. TF Nepro Carbsteady @ 3ml/hr x 24 hr along with Pro-stat 1 pk BID. Start @ 20ml/hr, increase 10ml/hr Q4H until goal is reached. TF at goal volume provides 100% energy & protein needs - 1496 kcal, 89gm protein, 523 ml free water 2. Water flush 240ml Q6H if allowed, adjust PRN 3. TPN if NPO > 7 days 4.Monitor NPO status, lab values, wt trends, I/O Expected Outcomes/Goals: To meet >75% estimated needs Lab values to improve Fu 2-3 days Plan discussed with: Other JADE MIRELES MD Jun 04, 2025 13:41
--- NOTE | 2025-06-04 14:44 | DVHPN2 ---
Subjective Patient underwent GIRISH which shows mitral valve vegetation about 3 mm Patient's family members were updated at bedside. Patient's remains intubated and sedated. Currently on FiO2 of 30% with a PEEP of five. Changes from previous H/P or p: No Changes Objective Vitals Vital Signs Date Time Temp Pulse Resp B/P (MAP) Pulse Ox O2 Delivery O2 Flow Rate FiO2 06/04/25 13:54 68 16 114/51 (72) 96 30 06/04/25 11:56 Mechanical Ventilator+ 06/04/25 11:45 97.0 97.0 06/02/25 09:00 70 Intake/Output Intake and Output 06/04/25 07:00 Intake Total 662.0 ml Output Total 2925 ml Balance -2263.0 ml IV Total 379.0 ml Blood Product 283 ml Output Urine Total 2925 ml Exam HEENT pupils are reactive Neck is supple CV is S1-S2 regular rate and rhythm Respiratory diminished breath sounds bases GI positive bowel sound Extremity trace edema 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 and sedated Medications Current Medications Medications Dose Ordered Sig/Rosa Route Start Time Stop Time Status Last Admin Dose Admin Cefepime HCl 50 ml @ 12.5 mls/hr DAILY IV 06/03/25 10:00 06/04/25 10:39 12.5 MLS/HR Midazolam HCl 50 ml @ 1 mls/hr Q24H IV 06/02/25 08:45 06/04/25 10:02 8 MLS/HR Fentanyl Citrate 250 ml @ 2.5 mls/hr Q24H IV 06/02/25 09:05 06/04/25 07:14 5 MLS/HR Pantoprazole Sodium 40 mg DAILY IV 06/03/25 10:00 06/04/25 10:38 40 MG Insulin Human Regular Q6HR SC 06/02/25 18:00 06/04/25 00:24 2 UNITS Dextrose 50 ml UD PRN IV 06/02/25 17:45 Diagnostic Test (Pha) 1 strip Q6HR 06/02/25 18:00 06/04/25 11:58 1 STRIP Aspirin 81 mg DAILY PO 06/02/25 19:00 06/04/25 10:46 81 MG Furosemide 80 mg BIDD IV 06/03/25 18:00 06/04/25 06:52 80 MG Vancomycin HCl 0 ml @ 0 mls/hr UD IV 06/03/25 14:30 Enoxaparin Sodium 40 mg DAILY SC 06/05/25 10:00 UNV Enteral Nutritional Formula 1,000 ml 30ML/HR GT 06/04/25 14:30 UNV Amino Acid Protein 30 ml BID GT 06/04/25 22:00 UNV Laboratory Results Laboratory Tests 06/04/25 02:45 Chemistry Test 06/04/25 02:45 Calcium Level 10.0 mg/dL (8.7-10.4) Urinalysis Test 06/02/25 08:49 Urine Color Light-yellow (Yellow) Urine Clarity Turbid (Clear) H Urine pH 5.5 (5.0-9.0) Urine Specific [place] 1.011 (1.001-1.035) Urine Protein 1+ (Negative) H Urine Ketones Negative (Negative) Urine Blood Trace /uL (Negative) H Urine Nitrite Negative (Negative) Urine Bilirubin Negative (Negative) Urine Urobilinogen Normal mg/dL (Negative) Urine Leukocyte Esterase 2+ /uL (Negative) Urine RBC 5 /hpf (0 - 4) Urine WBC Clumps Present /hpf (None Seen) Urine Microscopic WBC 92 /HPF (0-5) H Urine Squamous Epithelial Cells Few /hpf (<5) Urine Bacteria Few /hpf (None Seen) H Urine Mucus Few (None Seen) Urine Glucose 2+ mg/dL (Normal) H Blood Gas Results Test 06/04/25 06:46 Arterial Blood pH 7.507 (7.350-7.450) FiO2 % 30.0 Microbiology Microbiology Date/Time Source Procedure Growth Status 06/03/25 17:20 Nose MRSA Screen - Final Complete 06/02/25 08:54 Sputum Gram Stain - Final Resulted 06/02/25 08:54 Sputum Respiratory Culture - Preliminary Resulted 06/02/25 08:49 Voided Urine Urine Culture - Preliminary Resulted 06/02/25 08:46 Blood Blood Culture - Preliminary NO GROWTH AFTER 48 HOURS OF INCUBATION. Resulted Assessment/Plan Assessment/Plan 74-year-old female with a known history of hypertension dyslipidemia, congestive heart failure, diabetes mellitus type 2, coronary artery disease status post RCA/lad/left circumflex stent initially admitted to hospital with shortness of breaths found to have 1. Cardiopulmonary arrest status post ACLS protocol with ROSC 2. Suspected infective endocarditis on TTE status post GIRISH she confirms 3 mm mitral valve vegetation 3. Acute hypoxic respiratory failure requiring intubation on ventilator support 4. Chronic congestive heart failure 5. Fluid overload 6. CKD stage 5 7. Anemia -continue vent support, daily ABG, chest x-ray, Infectious Disease consultation cardiology consultation and pulmonary consultation -continue broad-spectrum IV antibiotics, CPAP trial. Plan discussed with: Other (Patient's family member at bedside.) My Orders Orders - AUGIE ERICKSON MD Procedure Category Date Status Time Vancomycin Per FRANK 06/04/25 In Process Pharmacy Protoc 09:14 Vancomycin,Random LAB 06/05/25 Verified 04:[address] 06/05/25 Logged 04:00 Nutritional PHA 06/04/25 Logged Supplements (Nepro 14:30 Amino Acids-Protein PHA 06/04/25 Logged Hydrolysat (Pro-Stat 22:00 Tube Feeding DIET 06/04/25 Transmitted Dinner Date of Service: Jun 04, 2025 Billing Provider: AUGIE ERICKSON MD Common Visit Codes: [id number] INP/OBS CARE(HIGH) AUGIE ERICKSON MD Jun 04, 2025 14:43
--- NOTE | 2025-06-04 17:56 | DVHOP2 ---
Operative Report - 2 Report Details Date: 06/04/25 Preop Diagnosis: Endocarditis Postop Diagnosis: Endocarditis Surgeon: Natalie Robison MD Anesthesiologist: Deep sedation Anesthesia: Mac, Local Consent: The patient was informed of the risks and benefits of the procedure. These include but are not limited to complications of anesthesia, postoperative infection, incomplete relief of symptoms, recurrence of symptoms, damage to blood vessels, nerves and tendons, deep venous thrombosis, pulmonary embolism and possible need for repeat surgery in the future. Complications: No complications Findings: Mitral valve vegetation Indications for Surgery: Vegetation Name of Procedure Performed Transesophageal echocardiography Procedure Details Procedure Details: Prior full informed consent obtained from family. The patient previously intubated and sedated underwent transesophageal echocardiographic evaluation. Transthoracic ECHO had revealed a mitral vegetation. A transesophageal probe was passed without difficulty. Standard views obtained. Conclusions Technically good study. Sinus rhythm. Mild concentric LVH. Left atrial enlargement. Moderate mitral annular calcification and thickening of the mitral leaflets. The base of the mitral leaflets have diminished excursion however the mid and distal segments appeared to have good aperture and slight prolapse. The aortic valve has moderate calcification and diminished excursion there is [id number] degree of aortic stenosis. The tricuspid is structurally normal. The pulmonic structurally normal. Left ventricular systolic performance is preserved. EF is about 55%. Normal RV function. There is [id number] mitral insufficiency. Aortic stenosis noted given aliasing noted across the aortic valves with mild aortic insufficiency. This was not quantified with GIRISH and continuous wave Doppler. There is moderate tricuspid regurgitation. No pulmonic insufficiency identified in the study. The mitral insufficiency appears to be much worse than in previous transthoracic echocardiographic evaluation. There is a pleural effusion. There is a minute pericardial effusion not hemodynamically significant. There appears to be a 2-3 mm vegetation in the inferior medial aspect of the base of the posterior mitral leaflet. It appears to be much smaller than on previously evaluated transthoracic echocardiogram. Condition Guarded Disposition Still a Patient Date of Service: Jun 04, 2025 Billing Provider: NATALIE ROBISON Sr., MD Cardiology Common Codes: [id number] INP/OBS CARE (High) Cardiology Procedure Codes: 28973-PJB W/IMG DOC INCL PROB ACQ NATALIE ROBISON Sr., MD Jun 04, 2025 17:56
[2025-06-04] MEDS: Nepro With Carb Steady 1 Liter Bottle GT SCH (19:11)
[2025-06-04] MEDS: Pro-Stat SF 30ml Vanilla GT SCH (21:49)
[2025-06-04] MEDS: HEPARIN SODIUM (PORCINE) 5000 UNITS/ML 1ML VIAL SC SCH (21:59)
--- NOTE | 2025-06-04 23:18 | DVHPN2 ---
Progress Note - Dictate Date Seen: Jun 04, 2025 Medical Necessity Reason Pt with a Central, PICC or Fol: Yes The following are medically ne: Stevens Catheter Reason for stevens catheter: Strict I&O Subjective Patient seen and examined at bedside. Sedated, intubated on mechanical ventilator. Overnight events reviewed. vital signs Vital Sign Date Time Temp Pulse Resp B/P (MAP) Pulse Ox O2 Delivery O2 Flow Rate FiO2 06/04/25 22:51 116/55 06/04/25 22:30 83 16 96 06/04/25 22:03 30 06/04/25 22:00 Mechanical Ventilator+ 06/04/25 21:30 99.3 210.7 06/02/25 09:00 70 Total Intake and Output 06/03/25 06/03/25 06/04/25 15:00 23:00 07:00 Intake Total 453.0 ml 105 ml 104 ml Output Total 1450 ml 1475 ml Balance 453.0 ml -1345 ml -1371 ml medications Current Medications Medications Dose Ordered Sig/Rosa Route Start Time Stop Time Status Last Admin Dose Admin Cefepime HCl 50 ml @ 12.5 mls/hr DAILY IV 06/03/25 10:00 06/04/25 10:39 12.5 MLS/HR Midazolam HCl 50 ml @ 1 mls/hr Q24H IV 06/02/25 08:45 06/04/25 22:51 8 MLS/HR Fentanyl Citrate 250 ml @ 2.5 mls/hr Q24H IV 06/02/25 09:05 06/04/25 07:14 5 MLS/HR Pantoprazole Sodium 40 mg DAILY IV 06/03/25 10:00 06/04/25 10:38 40 MG Insulin Human Regular Q6HR SC 06/02/25 18:00 06/04/25 00:24 2 UNITS Dextrose 50 ml UD PRN IV 06/02/25 17:45 Diagnostic Test (Pha) 1 strip Q6HR 06/02/25 18:00 06/04/25 17:31 1 STRIP Aspirin 81 mg DAILY PO 06/02/25 19:00 06/04/25 10:46 81 MG Furosemide 80 mg BIDD IV 06/03/25 18:00 06/04/25 17:34 80 MG Vancomycin HCl 0 ml @ 0 mls/hr UD IV 06/03/25 14:30 Enteral Nutritional Formula 1,000 ml 30ML/HR GT 06/04/25 14:30 06/04/25 19:11 1,000 ML Amino Acid Protein 30 ml BID GT 06/04/25 22:00 06/04/25 21:49 30 ML Heparin Sodium (Porcine) 5,000 units Q12HR SC 06/04/25 22:00 06/04/25 21:59 5,000 UNITS objective Gen.: Patient lying in bed in medical ICU. Sedated, intubated on mechanical ventilator. Head: Normocephalic, atraumatic. Eyes: PERRLA. Ears: Normal external anatomy. Throat: Endotracheal tube and orogastric tube in place. Neck: Supple, trachea midline. Chest: Transmitted breath sounds bilaterally. Decreased air entry bilaterally. No wheezing. Bibasilar crackles. Cardiovascular: Positive S1, positive S2. Regular rate and rhythm. Abdomen: Positive bowel sounds in all 4 quadrants. Soft, nontender, nondistended. : Stevens in place. Normal external genitalia. Rectal: Deferred. Skin: Warm, dry. Intact. Extremities: 2+ radial pulses bilaterally. No lower extremity edema. Neuro: Sedated. laboratory and microbiology Laboratory Tests 06/04/25 02:45 Test 06/04/25 02:45 Range/Units Serum Glucose 124 H 74-106 mg/dL Assessment/Plan Impression: Acute hypoxic respiratory failure On mechanical ventilator S/p cardiac arrest with ROSC Coronary artery disease, s/p stents Congestive heart failure Elevated troponin Anemia Events: Remains on vent support ABG reviewed, notable for alkalemia VT was reduced to 400 mL On AC mode; RR 16, VT 450--> 400, PEEP 5, FiO2 30% Sedated on Versed, Fentanyl Continue antibiotics Plan for GIRISH by Cardiology Follow up Cardiology recommendations Labs and imaging reviewed. Rest of plan as noted below. Plan: s/p intubation on mechanical ventilator. On AC mode; RR 16, VT 400, PEEP 5, FiO2 30% Titrate FIO2 to keep O2 saturation above 90%. VAP bundle. Daily ABG and CXR while intubated Sedate for ventilator synchrony Follow up Cardiology recommendations Continue antibiotics. F/u cultures. Pressors as necessary for hemodynamic support Titrate to keep mean arterial pressure greater than 65 mmHg. Monitor hemoglobin Transfuse if less than 7.0 g/dL. Monitor renal function Monitor electrolytes. Supplement as necessary. Monitor ins and outs. Nephrology recs appreciated GI/DVT prophylaxis. Prognosis: Poor given patient's multiple co-morbidities. Condition: Critical Rest of plan per hospitalist and other consultants. A total of 35 minutes of critical care time was spent reviewing the patient record, examining the patient, making a diagnostic and therapeutic plan, discussing this plan with the medical personnel, following up on diagnostic studies and following the patient for clinical stability excluding any and all procedures. At least 50% of this time was spent in direct, [id number] contact. Thank you Dr. Garcia for allowing me to participate in this patient's care. Further recommendations will depend on the patient's clinical course. Please do not hesitate to contact me if you have any questions or concerns. This medical document was created using an electronic medical record system with [email or web address] dictation system. Although these documentations are being carefully reviewed, there may still be some phonetic and typographical changes. The errors are purely typographical, due to imperfection on the software program, and do not reflect any compromise in the patient's medical care. Dietary Evaluation Review Comments: 1. TF Nepro Carbsteady @ 3ml/hr x 24 hr along with Pro-stat 1 pk BID. Start @ 20ml/hr, increase 10ml/hr Q4H until goal is reached. TF at goal volume provides 100% energy & protein needs - 1496 kcal, 89gm protein, 523 ml free water 2. Water flush 240ml Q6H if allowed, adjust PRN 3. TPN if NPO > 7 days 4.Monitor NPO status, lab values, wt trends, I/O Expected Outcomes/Goals: To meet >75% estimated needs Lab values to improve Fu 2-3 days Plan discussed with: Other (RN) Critical Care Time(min): 35 MANOLO HERNDON MD Jun 04, 2025 23:18
[2025-06-05] VITALS (110 sets, daily range): BP systolic 92–151; BP diastolic 5–81; PULSE 64–101; RESP 10–34; TEMP 97.9–101.1; O2SAT 91–99
[2025-06-05] MEDS: ACETAMINOPHEN IV 1000 MG/100ML (10MG/ML) IV ONE (03:27)
[2025-06-05 03:53] LABS: Hematocrit 27.5 % (36.0-46.0); Hemoglobin 9.5 g/dL (12.2-16.2); Mean Corpuscular Hemoglobin 31.1 pg (28.0-32.0); Mean Corpuscular Volume 90.3 fL (80.0-100.0); Nucleated Red Blood Cells % 0.1 %
[2025-06-05 04:10] LABS: Calcium 9.5 mg/dL (8.7-10.4); Chloride 103 mmol/L (98-107); Potassium 3.9 mmol/L (3.5-5.1)
[2025-06-05 04:11] LABS: Anion Gap 16 (5-15); Carbon Dioxide 27 mmol/L (20-31)
[2025-06-05 04:16] LABS: BUN/Creatinine Ratio 15.5 (10.0-20.0)
[2025-06-05 04:33] LABS: Glucose 112 mg/dL (74-106); Sodium 146 mmol/L (136-145)
[2025-06-05 04:35] LABS: Blood Urea Nitrogen 80 mg/dL (9-23)
[2025-06-05 07:30] LABS: Base Excess 0.1 mmol/L (-2.0-3.0)
--- NOTE | 2025-06-05 09:53 | DVH ---
CHEST RADIOGRAPH Indication: SOB Technique: Single frontal view of the chest was obtained Comparison: XY CHEST XRAY 1 VIEW on DOS: 06/03/25, XY CHEST XRAY 1 VIEW on DOS: 06/02/25, XY CHEST PORT ABLE on DOS: 06/02/25, XY CHEST PORTABLE on DOS: 03/28/25, XY CHEST PORTABLE on DOS: 03/27/25, XY CHEST XRAY 1 VIEW on DOS: 06/03/25 FINDINGS: Lines and Tubes: Endotracheal tube, enteric catheter and left central venous catheter in satisfactory position. Lungs: Multifocal airspace disease Pleura: No effusion. No pneumothorax. Cardiomediastinal contours: Unremarkable Bones: Unremarkable IMPRESSION: Lines and tubes in satisfactory position. No significant interval change.
[2025-06-05] MEDS ORDERED: ENOXAPARIN SOD 40 MG/0.4 ML SYRINGE SC SCH (10:00)
[2025-06-05] MEDS: LACTULOSE 20Gm/30ML SOLN PO ONE (12:38)
--- NOTE | 2025-06-05 13:39 | ECG ---
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
--- NOTE | 2025-06-05 15:07 | DVHPN2 ---
Progress Note Date Seen: Jun 05, 2025 Medical Necessity Reason Pt with a Central, PICC or Fol: Yes The following are medically ne: Stevens Catheter Reason for stevens catheter: Strict I&O Subjective Patient reports: Other (Patient remains intubated daughter, grandson bedside) Review of Systems: Deferred Objective vital signs Vital Sign Date Time Temp Pulse Resp B/P (MAP) Pulse Ox O2 Delivery O2 Flow Rate FiO2 06/05/25 14:27 76 16 142/66 (91) 96 30 06/05/25 12:00 97.9 97.9 06/05/25 12:00 Mechanical Ventilator+ Total Intake and Output 06/04/25 06/04/25 06/05/25 15:00 23:00 07:00 Intake Total 241.0 ml 104 ml 242 ml Output Total 950 ml 900 ml Balance 241.0 ml -846 ml -658 ml medications Current Medications Medications Dose Ordered Sig/Rosa Route Start Time Stop Time Status Last Admin Dose Admin Cefepime HCl 50 ml @ 12.5 mls/hr DAILY IV 06/03/25 10:00 06/05/25 10:15 12.5 MLS/HR Midazolam HCl 50 ml @ 1 mls/hr Q24H IV 06/02/25 08:45 06/05/25 06:34 6 MLS/HR Fentanyl Citrate 250 ml @ 2.5 mls/hr Q24H IV 06/02/25 09:05 06/04/25 07:14 5 MLS/HR Pantoprazole Sodium 40 mg DAILY IV 06/03/25 10:00 06/05/25 10:10 40 MG Insulin Human Regular Q6HR SC 06/02/25 18:00 06/05/25 11:42 3 UNITS Dextrose 50 ml UD PRN IV 06/02/25 17:45 Diagnostic Test (Pha) 1 strip Q6HR 06/02/25 18:00 06/05/25 11:42 1 STRIP Aspirin 81 mg DAILY PO 06/02/25 19:00 06/05/25 10:15 81 MG Vancomycin HCl 0 ml @ 0 mls/hr UD IV 06/03/25 14:30 Enteral Nutritional Formula 1,000 ml 30ML/HR GT 06/04/25 14:30 06/04/25 19:11 1,000 ML Amino Acid Protein 30 ml BID GT 06/04/25 22:00 06/05/25 10:15 30 ML Heparin Sodium (Porcine) 5,000 units Q12HR SC 06/04/25 22:00 06/05/25 10:14 5,000 UNITS Lactulose 15 ml BID PO 06/05/25 22:00 Furosemide 40 mg BIDD IV 06/05/25 18:00 UNV Examination: GENERAL:Abnormal, HEENT:Abnormal, LUNGS:Abnormal, MSK:Normal, NEURO:Abnormal laboratory and microbiology Laboratory Tests 06/05/25 03:03 Test 06/05/25 03:03 Range/Units Serum Glucose 112 H 74-106 mg/dL Microbiology Date/Time Source Procedure Growth Status 06/03/25 17:20 Nose MRSA Screen - Final Complete 06/02/25 08:54 Sputum Gram Stain - Final Resulted 06/02/25 08:54 Sputum Respiratory Culture - Preliminary Resulted 06/02/25 08:49 Voided Urine Urine Culture - Preliminary Resulted 06/02/25 08:46 Blood Blood Culture - Preliminary NO GROWTH AFTER 72 HOURS OF INCUBATION. Resulted Problem List/Assessment/Plan Problem List/Assessment/Plan 1) Hemodynamically mediated acute kidney injury in the setting of hypotension, status post cardiac arrest and resuscitation 2) CKD stage five not on dialysis--being followed in [place]/Chronic kidney disease five status for more than one year 3) coronary artery disease 4) status post cardiac arrest 5) diabetes Acute hypoxic respiratory failure ventilator-dependent Recommendations Reduce Lasix to 40 mg IV b.i.d. Not on any pressors today Currently sedation being weaned off Worsening renal parameters noted informed patient's daughter and grandson bedside Evaluate PLANISHER needs daily Plan discussed with: Daughter My Orders My Orders Orders - HUGO LEE MD Procedure Category Date Status Time Furosemide Injection PHA 06/05/25 In Process (Lasix Injection) 18:00 Dietary Evaluation Review Comments: 1. TF Nepro Carbsteady @ 3ml/hr x 24 hr along with Pro-stat 1 pk BID. Start @ 20ml/hr, increase 10ml/hr Q4H until goal is reached. TF at goal volume provides 100% energy & protein needs - 1496 kcal, 89gm protein, 523 ml free water 2. Water flush 240ml Q6H if allowed, adjust PRN 3. TPN if NPO > 7 days 4.Monitor NPO status, lab values, wt trends, I/O Expected Outcomes/Goals: To meet >75% estimated needs Lab values to improve Fu 2-3 days Critical Care Time (mins): 46 HUGO LEE MD Jun 05, 2025 15:07
[2025-06-05] MEDS: cefTRIAXone 2GM/50ML D5W 50 ML IV ONE (15:34)
[2025-06-05] MEDS: FUROSEMIDE 100 MG/10ML VIAL IV SCH (17:35)
--- NOTE | 2025-06-05 17:56 | DVHPNRES ---
Progress Note Date Seen: Jun 05, 2025 Resident Creating Document: WARNER SANCHEZ RESIDENT Medical Necessity Reason Pt with a Central, PICC or Fol: Yes The following are medically ne: Stevens Catheter Reason for stevens catheter: Strict I&O Subjective Review of Systems Patient is a 74-year-old female with a known history of HTN, diabetes mellitus, congestive heart failure with preserved ejection fraction, coronary artery disease (CAD) s/p 3-vessel stenting in 2019 (RCA, LCx, LAD), chronic kidney disease not on dialysis yet but stage 5, hyperlipidemia, and blindness who was brought in by EMS due to worsening shortness of breath. Patient's noted that early in May patient has started to have shortness of breath following which she was admitted at [facility] for 3 days patient was given diuresis and was discharged on Lasix 40 mg b.i.d. with the patient was apparently not that compliant with the medication ended up visiting her scheduler conveyor in the outpatient clinic where she was noticed to have respiratory distress and leg swelling following which she was referred to the ER where she got IV Lasix and was eventually discharged home. The scheduler conveyor they reported that he was not able to do angiography as patient had poor kidney function. Since then patient was at home but had been having worsening shortness of breath transitioning from NYHA class 3 to 4 and on Thursday morning had severe shortness of breath at rest EMS were called. While at home patient was responding and verbal. Able to the ER patient had severe shortness of breath and was not able to respond verbally and after few minutes while in the bed coded and underwent cardiac pulmonary arrest following which CPR was started and after 1 dose of epinephrine and 3 doses of sodium bicarbonate ROS was achieved in 6 minutes. Past medical history: Congestive heart failure (EF 55%), Coronary artery disease s/p 3-vessel stenting (2019), Chronic kidney disease, not on hemodialysis, Type 2 diabetes mellitus, Hyperlipidemia, Blindness, HTN Surgical history: PCI with stenting (RCA, LCx, LAD) in 2019 Social history: Patient lives at home with the daughter who is the clay modeler and does not smoke, drink, use drugs Home medications: rocaltrol, amldodipine, aspirin, atorvastatin, carvedilol, colistazol, famotidine, furosemide, glipizide, hydralazine, noroc , mirtazapine, sitagliptin and sodium bicarb HPI On admission patient had cardiopulmonary arrest following which high quality CPR was given and draws goals achieved in 6 minutes after 1 dose of epinephrine and 3 doses of sodium bicarbonate. Initial chest x-ray showed bilateral perihilar airspace opacities representing pulmonary edema. Head CT was done which showed no intracranial hemorrhage or mass effect, mild chronic microvascular ischemic changes and bilateral orbital pthisis bulbi. Initial labs showed elevated serum creatinine and BUN with a GFR of 9. Patient was started on 80 mg b.i.d. IV Lasix. Transthoracic Echocardiogram showed moderate thickening of mitral leaflets, mobile vegetation at the base of posterior mitral leaflet extending into the mid section of the posterior mitral leaflet with diminished excursion of the actual leaflet. There appears to be underlying mitral stenosis with diminished anterior leaflet function however thickening. There appears to be stenosis and thickening of the aortic valve leaflets as well with diminished excursion. LVEF at 50% with normal RV function, [id number] mitral insufficiency and some degree were aortic stenosis was noted, moderate tricuspid regurgitation. A transesophageal echocardiogram was done which showed 2-3 mm vegetation in the inferior medial aspect of the base of the posterior mitral leaflet. It appears to be much smaller than on previously evaluated transthoracic echocardiogram. Mild concentric LVH with a LVEF 55% and normal RV function Moderate mitral annular calcifications and thickening of mitral leaflets with Severe mitral insufficiency which was much worse than noted on the TTE , aortic stenosis noted with mild aortic insufficiency which was not quantified with GIRISH and continuous wave Doppler. There is moderate tricuspid regurgitation. Minute pericardial effusion not hemodynamically significant. 06/05 Patient vitally stable without any vasopressor requirement and on minimal ventilator settings. Bilateral lung sounds clear without any occult rales. Chest x-ray shows clearing of perihilar opacities. Since the patient has been in the hospital she is in net negative balance of -5.3 L. Overnight patient had fevers ranging up to 101.3 degree F, she continues to be on vancomycin and was put on ceftriaxone 2 g daily. Patient was found to have good urine output, kidney function was worsening following which Lasix was decreased to 40 mg b.i.d.. Objective vital signs Vital Sign Date Time Temp Pulse Resp B/P (MAP) Pulse Ox O2 Delivery O2 Flow Rate FiO2 06/05/25 16:10 85 16 132/5 (47) 97 30 06/05/25 16:00 Mechanical Ventilator+ 06/05/25 16:00 98.9 98.9 Total Intake and Output 06/04/25 06/04/25 06/05/25 15:00 23:00 07:00 Intake Total 241.0 ml 104 ml 242 ml Output Total 950 ml 900 ml Balance 241.0 ml -846 ml -658 ml medications Current Medications Medications Dose Ordered Sig/Rosa Route Start Time Stop Time Status Last Admin Dose Admin Midazolam HCl 50 ml @ 1 mls/hr Q24H IV 06/02/25 08:45 06/05/25 06:34 6 MLS/HR Fentanyl Citrate 250 ml @ 2.5 mls/hr Q24H IV 06/02/25 09:05 06/04/25 07:14 5 MLS/HR Pantoprazole Sodium 40 mg DAILY IV 06/03/25 10:00 06/05/25 10:10 40 MG Insulin Human Regular Q6HR SC 06/02/25 18:00 06/05/25 11:42 3 UNITS Dextrose 50 ml UD PRN IV 06/02/25 17:45 Diagnostic Test (Pha) 1 strip Q6HR 06/02/25 18:00 06/05/25 11:42 1 STRIP Aspirin 81 mg DAILY PO 06/02/25 19:00 06/05/25 10:15 81 MG Vancomycin HCl 0 ml @ 0 mls/hr UD IV 06/03/25 14:30 Enteral Nutritional Formula 1,000 ml 30ML/HR GT 06/04/25 14:30 06/04/25 19:11 1,000 ML Amino Acid Protein 30 ml BID GT 06/04/25 22:00 06/05/25 10:15 30 ML Heparin Sodium (Porcine) 5,000 units Q12HR SC 06/04/25 22:00 06/05/25 10:14 5,000 UNITS Lactulose 15 ml BID PO 06/05/25 22:00 Furosemide 40 mg BIDD IV 06/05/25 18:00 Ceftriaxone Sodium/Dextrose 50 ml @ 50 mls/hr DAILY IV 06/06/25 10:00 Examination Constitutional: Patient is sedated and mechanical ventilation with a RASS -3 Gen - mild conjunctival pallor, no cyanosis, no clubbing, no LAD, no edema . Skin - Patients skin is warm and dry. HEENT - normocephalic, atraumatic, moist mucous membranes. Neck - full ROM, no LAD, no JVD Pulmonary - B/L equal breath sounds no significant rales, no wheezing, no stridor. cardiovascular - regular S1,S2 heard, no added sounds, systolic apical murmur heard. peripheral pulses normal radial 2+, pedal 1+. capillary refill normal <2 secs. GI - soft, nontender abdomen. no hepatospleenomegaly. Bowel sounds normoactive Neurological - patient is sedated and on mechanical ventilation with a RASS of - 3 laboratory and microbiology Laboratory Tests 06/05/25 03:03 Test 06/05/25 03:03 Range/Units Serum Glucose 112 H 74-106 mg/dL Microbiology Date/Time Source Procedure Growth Status 06/03/25 17:20 Nose MRSA Screen - Final Complete 06/02/25 08:54 Sputum Gram Stain - Final Resulted 06/02/25 08:54 Sputum Respiratory Culture - Preliminary Resulted 06/02/25 08:49 Voided Urine Urine Culture - Preliminary Resulted 06/02/25 08:46 Blood Blood Culture - Preliminary NO GROWTH AFTER 72 HOURS OF INCUBATION. Resulted Problem List/Assessment/Plan Problem List/Assessment/Plan Neurology Acute metabolic encephalopathy from likely hypoxic respiratory failure Cardiopulmonary arrest - RASS -3 - sedation turned off Respiratory Acute on chronic hypoxic respiratory failure likely from pulmonary edema Pulmonary edema likely due to mitral insufficiency/CKD - on mechanical ventilation with a PEEP of 5, FiO2 30% - IV Lasix 40 mg b.i.d. - until 06/05 net negative fluid balance of -5300ml - ABG compensated - chest x-ray shows clearing of bilateral perihilar infiltrates Cardiovascular S/p cardiopulmonary arrest with ROSC [id number] mitral regurgitation Possible infective endocarditis Moderate aortic stenosis NSTEMI likely type 2 from demand ischemia/cardiac arrest h/o CAD s/p PCI with MORGAN - on vancomycin and ceftriaxone - GIRISH shows [id number] mitral insufficiency, 2-3 mm vegetation in the inferior medial aspect of the base of the posterior mitral leaflet - LVEF 55% - Lasix 40 mg b.i.d. IV Nephrology MICAELA on CKD likely due to VMN CKD stage 5, not in dialysis - BUN creatinine worsening, Lasix dose decreased - monitor electrolytes and kidney function - nephrology on board and patient may need dialysis Infectious disease Possible infective endocarditis Urinary tract infection - on vancomycin and ceftriaxone - initial blood cultures showed no growth after 72 hours - preliminary urinary cultures show growth of less than 16370 colony-forming units - MRSA screen negative - respiratory culture showed growth of normal oropharyngeal wen Endocrinology Type 2 diabetes mellitus - on tube feedings and insulin sliding scale DVT prophylaxis: On heparin PUD prophylaxis: On Protonix Tube feedings and lactulose Left IJ CVC placed on 06/02 Stevens's catheter placed on 06/02 NG tube placed on 06/02 Goals of care discussed with the patient's daughters for over 27 minutes. Critical care time excluding procedures: 81 minutes Plan discussed with Dr. Jordan Plan discussed with: Daughter, Other (RN Carlito) My Orders My Orders Orders - WARNER SANCHEZ Procedure Category Date Status Time Chest Xray 1 View XY 06/05/25 Resulted 08:52 Chest Xray 1 View XY 06/06/25 Logged 04:00 Abg W/ Co-Ox RT 06/06/25 Logged 06:00 Lactulose Oral PHA 06/05/25 In Process 22:00 Rheumatoid Arthritis LAB 06/05/25 In Process Factor 11:56 Ceftriaxone 2gm/50ml PHA 06/06/25 In Process D5w (Rocephin 2gm/5 10:00 Dietary Evaluation Review Comments: 1. TF Nepro Carbsteady @ 3ml/hr x 24 hr along with Pro-stat 1 pk BID. Start @ 20ml/hr, increase 10ml/hr Q4H until goal is reached. TF at goal volume provides 100% energy & protein needs - 1496 kcal, 89gm protein, 523 ml free water 2. Water flush 240ml Q6H if allowed, adjust PRN 3. TPN if NPO > 7 days 4.Monitor NPO status, lab values, wt trends, I/O Expected Outcomes/Goals: To meet >75% estimated needs Lab values to improve Fu 2-3 days Date of Service: Jun 05, 2025 Billing Provider: JEREMIAS JORDAN MD Common Visit Codes: 03202-[id number] CARE 30-74 MIN, 88094-[id number] CARE-EACH +30MIN WARNER SANCHEZ Jun 05, 2025 17:56 JEREMIAS JORDAN MD Jun 06, 2025 14:19
--- NOTE | 2025-06-05 17:59 | DVHPN2 ---
Consult Progress Note Subjective Other Systems: Patient in normal sinus rhythm on ekg monitor tech. Patient off chemical sedations, remains mechanically intubated Objective vital signs Vital Sign Date Time Temp Pulse Resp B/P (MAP) Pulse Ox O2 Delivery O2 Flow Rate FiO2 06/05/25 17:35 118/55 06/05/25 16:10 85 16 97 30 06/05/25 16:00 Mechanical Ventilator+ 06/05/25 16:00 98.9 98.9 Total Intake and Output 06/04/25 06/04/25 06/05/25 15:00 23:00 07:00 Intake Total 241.0 ml 104 ml 242 ml Output Total 950 ml 900 ml Balance 241.0 ml -846 ml -658 ml medications Current Medications Medications Dose Ordered Sig/Rosa Route Start Time Stop Time Status Last Admin Dose Admin Midazolam HCl 50 ml @ 1 mls/hr Q24H IV 06/02/25 08:45 06/05/25 06:34 6 MLS/HR Fentanyl Citrate 250 ml @ 2.5 mls/hr Q24H IV 06/02/25 09:05 06/04/25 07:14 5 MLS/HR Pantoprazole Sodium 40 mg DAILY IV 06/03/25 10:00 06/05/25 10:10 40 MG Insulin Human Regular Q6HR SC 06/02/25 18:00 06/05/25 17:43 2 UNITS Dextrose 50 ml UD PRN IV 06/02/25 17:45 Diagnostic Test (Pha) 1 strip Q6HR 06/02/25 18:00 06/05/25 17:35 1 STRIP Aspirin 81 mg DAILY PO 06/02/25 19:00 06/05/25 10:15 81 MG Vancomycin HCl 0 ml @ 0 mls/hr UD IV 06/03/25 14:30 Enteral Nutritional Formula 1,000 ml 30ML/HR GT 06/04/25 14:30 06/04/25 19:11 1,000 ML Amino Acid Protein 30 ml BID GT 06/04/25 22:00 06/05/25 10:15 30 ML Heparin Sodium (Porcine) 5,000 units Q12HR SC 06/04/25 22:00 06/05/25 10:14 5,000 UNITS Lactulose 15 ml BID PO 06/05/25 22:00 Furosemide 40 mg BIDD IV 7/28/25 18:00 06/05/25 17:35 40 MG Ceftriaxone Sodium/Dextrose 50 ml @ 50 mls/hr DAILY IV 06/06/25 10:00 Examination: GENERAL:Abnormal, LUNGS:Abnormal (Mechanically ventilated), CVS:Normal, NEURO:Abnormal (Off sedations, not responding) laboratory and microbiology Laboratory Tests 06/05/25 03:03 Test 06/05/25 03:03 Range/Units Serum Glucose 112 H 74-106 mg/dL Problem List/Assessment/Plan Problem List/Assessment/Plan Cardiopulmonary arrest status post CPR with ROSC NSTEMI, rule out progressive coronary artery disease ?Infective endocarditis Coronary artery disease status post PTCA with multiple MORGAN Acute on chronic HFpEF, NYHA unspecified (patient intubated) Acute anemia status post PRBC transfusion Prolonged QTc interval Chronic kidney disease Type 2 diabetes mellitus Plan/recommendations (Dr. Robison): Case discussed with . The patient came in status post cardiopulmonary arrest with CPR and return of spontaneous circulation. She went underwent a transthoracic echocardiogram which revealed an EF of 50% with a mobile vegetation at the base of the posterior mitral leaflet extending into the mid section of the posterior mitral leaflet. The patient then underwent a transesophageal echocardiogram which revealed a 2-3 mm vegetation in the inferior medial aspect of the base of the posterior mitral leaflet. A infectious disease consultation was recommended. At the time of assessment, the patient remains off of all sedations and is not responsive to any verbal or tactile stimuli. The patient may eventually benefit from a coronary angiogram with left and right heart catheterization. At this time, the patient is not an ideal candidate given elevated creatinine level and unknown neurological status. Given the patient's history of CAD, we will recommend to keep hemoglobin level greater than 8.0. We will continue to follow the patient closely. Continue on close cardiac surveillance. Thank you for allowing us to care for this patient. Please call with any questions or concerns. Critical care time spent: 35 minutes. This medical document was created using an electronic medical record system with voice recognition software and computerized dictation system. Although this document has been carefully reviewed, there might still be some phonetic and typographical errors. Occasional wrong-word or ``sound-alike substitutions may have occurred due to the inherent limitations of voice recognition software. These areas are purely typographical due to imperfections of the software programs and do not reflect any compromise in the patient's medical care. Please read the chart carefully and recognize, using context, where these substitutions have occurred. Plan discussed with: Other (Bedside RN) Dietary Evaluation Review Comments: 1. TF Nepro Carbsteady @ 3ml/hr x 24 hr along with Pro-stat 1 pk BID. Start @ 20ml/hr, increase 10ml/hr Q4H until goal is reached. TF at goal volume provides 100% energy & protein needs - 1496 kcal, 89gm protein, 523 ml free water 2. Water flush 240ml Q6H if allowed, adjust PRN 3. TPN if NPO > 7 days 4.Monitor NPO status, lab values, wt trends, I/O Expected Outcomes/Goals: To meet >75% estimated needs Lab values to improve Fu 2-3 days Date of Service: Jun 05, 2025 Billing Provider: TIANA ANDRADE Common Visit Codes: 26152-[id number] CARE 30-74 MIN TIANA ANDRADE Jun 05, 2025 17:59
[2025-06-05] MEDS: LACTULOSE 20Gm/30ML SOLN PO SCH (21:47)
[2025-06-06] VITALS (103 sets, daily range): BP systolic 99–164; BP diastolic 53–81; PULSE 65–94; RESP 12–34; TEMP 97.8–100.2; O2SAT 95–100
[2025-06-06 03:52] LABS: Hematocrit 27.9 % (36.0-46.0); Hemoglobin 9.3 g/dL (12.2-16.2); Mean Corpuscular Hemoglobin 30.1 pg (28.0-32.0); Mean Corpuscular Volume 90.0 fL (80.0-100.0); Nucleated Red Blood Cells % 0.1 %
[2025-06-06 03:53] LABS: Anion Gap 14 (5-15); Carbon Dioxide 29 mmol/L (20-31); Chloride 103 mmol/L (98-107); Potassium 3.8 mmol/L (3.5-5.1); Sodium 146 mmol/L (136-145)
[2025-06-06 03:54] LABS: Calcium 10.0 mg/dL (8.7-10.4)
[2025-06-06 03:59] LABS: BUN/Creatinine Ratio 18.1 (10.0-20.0)
[2025-06-06 04:17] LABS: Glucose 192 mg/dL (74-106)
[2025-06-06 04:19] LABS: Blood Urea Nitrogen 100 mg/dL (9-23)
--- NOTE | 2025-06-06 05:39 | DVH ---
CHEST RADIOGRAPH Indication: SOB Technique: Single frontal view of the chest was obtained COMPARISON: XY CHEST XRAY 1 VIEW on DOS: 06/05/25, XY CHEST XRAY 1 VIEW on DOS: 06/03/25, XY CHEST XRAY 1 VIEW on DOS: 06/02/25, XY CHEST PORTABLE on DOS: 06/02/25, XY CHEST PORTABLE on DOS: 03/28/25 FINDINGS: Lines and Tubes: Endotracheal tube and enteric catheter in satisfactory position. Lungs: Congestion Pleura: No effusion. No pneumothorax. Cardiomediastinal contours: Unremarkable Bones: Unremarkable IMPRESSION: Lines and tubes in satisfactory position. No significant interval change.
[2025-06-06 07:10] LABS: Base Excess 4.2 mmol/L (-2.0-3.0)
[2025-06-06] MEDS: cefTRIAXone 2GM/50ML D5W 50 ML IV SCH (09:45)
[2025-06-06] MEDS: HEPARIN SODIUM (PORCINE) 5000 UNITS/ML 1ML VIAL ONE (10:25)
[2025-06-06] MEDS: LIDOCAINE 2%HCL (LOCAL ANESTH.) INJ 20ML MDV ONE (10:26)
--- NOTE | 2025-06-06 10:28 | ECG ---
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
--- NOTE | 2025-06-06 11:17 | DVHPNRES ---
Progress Note Date Seen: Jun 06, 2025 Resident Creating Document: WARNER SANCHEZ RESIDENT Medical Necessity Reason Pt with a Central, PICC or Fol: Yes The following are medically ne: Stevens Catheter Reason for stevens catheter: Strict I&O Subjective Review of Systems Patient is a 74-year-old female with a known history of HTN, diabetes mellitus, congestive heart failure with preserved ejection fraction, coronary artery disease (CAD) s/p 3-vessel stenting in 2019 (RCA, LCx, LAD), chronic kidney disease not on dialysis yet but stage 5, hyperlipidemia, and blindness who was brought in by EMS due to worsening shortness of breath. Patient's noted that early in May patient has started to have shortness of breath following which she was admitted at [facility] for 3 days patient was given diuresis and was discharged on Lasix 40 mg b.i.d. with the patient was apparently not that compliant with the medication ended up visiting her hr business partner consultant in the outpatient clinic where she was noticed to have respiratory distress and leg swelling following which she was referred to the ER where she got IV Lasix and was eventually discharged home. The hr business partner consultant they reported that he was not able to do angiography as patient had poor kidney function. Since then patient was at home but had been having worsening shortness of breath transitioning from NYHA class 3 to 4 and on Thursday morning had severe shortness of breath at rest EMS were called. While at home patient was responding and verbal. Able to the ER patient had severe shortness of breath and was not able to respond verbally and after few minutes while in the bed coded and underwent cardiac pulmonary arrest following which CPR was started and after 1 dose of epinephrine and 3 doses of sodium bicarbonate ROS was achieved in 6 minutes. Past medical history: Congestive heart failure (EF 55%), Coronary artery disease s/p 3-vessel stenting (2019), Chronic kidney disease, not on hemodialysis, Type 2 diabetes mellitus, Hyperlipidemia, Blindness, HTN Surgical history: PCI with stenting (RCA, LCx, LAD) in 2019 Social history: Patient lives at home with the daughter who is the meeting specialist and does not smoke, drink, use drugs Home medications: rocaltrol, amldodipine, aspirin, atorvastatin, carvedilol, colistazol, famotidine, furosemide, glipizide, hydralazine, noroc , mirtazapine, sitagliptin and sodium bicarb HPI On admission patient had cardiopulmonary arrest following which high quality CPR was given and draws goals achieved in 6 minutes after 1 dose of epinephrine and 3 doses of sodium bicarbonate. Initial chest x-ray showed bilateral perihilar airspace opacities representing pulmonary edema. Head CT was done which showed no intracranial hemorrhage or mass effect, mild chronic microvascular ischemic changes and bilateral orbital pthisis bulbi. Initial labs showed elevated serum creatinine and BUN with a GFR of 9. Patient was started on 80 mg b.i.d. IV Lasix. Transthoracic Echocardiogram showed moderate thickening of mitral leaflets, mobile vegetation at the base of posterior mitral leaflet extending into the mid section of the posterior mitral leaflet with diminished excursion of the actual leaflet. There appears to be underlying mitral stenosis with diminished anterior leaflet function however thickening. There appears to be stenosis and thickening of the aortic valve leaflets as well with diminished excursion. LVEF at 50% with normal RV function, [id number] mitral insufficiency and some degree were aortic stenosis was noted, moderate tricuspid regurgitation. Transesophageal echocardiogram was done which showed 2-3 mm vegetation in the inferior medial aspect of the base of the posterior mitral leaflet. It appears to be much smaller than on previously evaluated transthoracic echocardiogram. Mild concentric LVH with a LVEF 55% and normal RV function Moderate mitral annular calcifications and thickening of mitral leaflets with Severe mitral insufficiency which was much worse than noted on the TTE , aortic stenosis noted with mild aortic insufficiency which was not quantified with GIRISH and continuous wave Doppler. There is moderate tricuspid regurgitation. Minute pericardial effusion not hemodynamically significant. Review of systems 06/06 Patient seen and examined at the bedside. Has been off sedation overnight. Patient in the morning responds to painful physical touch with contraction of e xtremity. Bilateral improved lung sounds. ABG shows mixed respiratory acidosis with metabolic alkalosis. Overnight patient had maximum recorded fever of 101.1 F Overnight patient had urine output of 1100 mL and in the morning about 300 mL till 8:00 a.m. patient's renal function is worsening with the elevated BUN and creatinine. She underwent tunneled dialysis catheter insertion with the IR and will be initiated on dialysis as per Nephrology. Patient respiratory culture Grew Proteus mirabilis ESBL and was started on meropenem renal/dialysis dosing. Objective vital signs Vital Sign Date Time Temp Pulse Resp B/P (MAP) Pulse Ox O2 Delivery O2 Flow Rate FiO2 06/06/25 09:45 79 17 145/72 (96) 95 30 06/06/25 08:02 97.9 97.9 06/06/25 08:00 Mechanical Ventilator+ Total Intake and Output 06/05/25 06/05/25 06/06/25 15:00 23:00 07:00 Intake Total 72.5 ml 290 ml 308 ml Output Total 650 ml 1100 ml Balance 72.5 ml -360 ml -792 ml medications Current Medications Medications Dose Ordered Sig/Rosa Route Start Time Stop Time Status Last Admin Dose Admin Midazolam HCl 50 ml @ 1 mls/hr Q24H IV 06/02/25 08:45 06/05/25 06:34 6 MLS/HR Fentanyl Citrate 250 ml @ 2.5 mls/hr Q24H IV 06/02/25 09:05 06/04/25 07:14 5 MLS/HR Pantoprazole Sodium 40 mg DAILY IV 06/03/25 10:00 06/06/25 09:43 40 MG Insulin Human Regular Q6HR SC 06/02/25 18:00 06/06/25 05:47 3 UNITS Dextrose 50 ml UD PRN IV 06/02/25 17:45 Diagnostic Test (Pha) 1 strip Q6HR 06/02/25 18:00 06/06/25 05:48 1 STRIP Aspirin 81 mg DAILY PO 06/02/25 19:00 06/06/25 09:41 81 MG Vancomycin HCl 0 ml @ 0 mls/hr UD IV 06/03/25 14:30 Enteral Nutritional Formula 1,000 ml 30ML/HR GT 06/04/25 14:30 06/04/25 19:11 1,000 ML Amino Acid Protein 30 ml BID GT 06/04/25 22:00 06/05/25 21:46 30 ML Heparin Sodium (Porcine) 5,000 units Q12HR SC 06/04/25 22:00 06/06/25 09:44 5,000 UNITS Lactulose 15 ml BID PO 06/05/25 22:00 06/06/25 09:42 15 ML Furosemide 40 mg BIDD IV 06/05/25 18:00 06/06/25 05:46 40 MG Ceftriaxone Sodium/Dextrose 50 ml @ 50 mls/hr DAILY IV 06/06/25 10:00 06/06/25 09:45 50 MLS/HR Examination Constitutional: Patient is sedated and mechanical ventilation with a RASS -3 Gen - mild conjunctival pallor, no cyanosis, no clubbing, no LAD, no edema . Skin - Patients skin is warm and dry. HEENT - normocephalic, atraumatic, moist mucous membranes. Neck - no LAD, no JVD Pulmonary - B/L equal breath sounds no significant rales, no wheezing, no stridor. cardiovascular - regular S1,S2 heard, no added sounds, systolic apical murmur heard. peripheral pulses normal radial 2+, pedal 1+. capillary refill normal <2 secs. GI - soft, nontender abdomen. no hepatospleenomegaly. Bowel sounds normoactive Neurological - patient is sedated and on mechanical ventilation with a RASS of - 3 laboratory and microbiology Laboratory Tests 06/06/25 03:00 Test 06/06/25 03:00 Range/Units Serum Glucose 192 H 74-106 mg/dL Microbiology Date/Time Source Procedure Growth Status 06/03/25 17:20 Nose MRSA Screen - Final Complete 06/02/25 08:54 Sputum Gram Stain - Final Resulted 06/02/25 08:54 Sputum Respiratory Culture - Preliminary Resulted 06/02/25 08:49 Voided Urine Urine Culture - Preliminary Resulted 06/02/25 08:46 Blood Blood Culture - Preliminary NO GROWTH AFTER 72 HOURS OF INCUBATION. Resulted Problem List/Assessment/Plan Problem List/Assessment/Plan Neurology Acute metabolic encephalopathy from likely hypoxic respiratory failure Cardiopulmonary arrest - RASS -3 - sedation turned off Respiratory Acute on chronic hypoxic respiratory failure likely from pulmonary edema Pulmonary edema likely due to mitral insufficiency/CKD Pneumonia due to Proteus mirabilis ESBL - on mechanical ventilation with a PEEP of 5, FiO2 30% - IV Lasix 40 mg b.i.d. - until 06/06 net negative fluid balance - ABG shows mixed respiratory acidosis with metabolic alkalosis - chest x-ray shows clearing of bilateral perihilar infiltrates Cardiovascular S/p cardiopulmonary arrest with ROSC Tsxtolsf-ce-shebeo mitral regurgitation Possible infective endocarditis Moderate aortic stenosis NSTEMI likely type 2 from demand ischemia/cardiac arrest h/o CAD s/p PCI with MORGAN - on vancomycin and ceftriaxone - GIRISH shows [id number] mitral insufficiency, 2-3 mm vegetation in the inferior medial aspect of the base of the posterior mitral leaflet - LVEF 55% - Lasix 40 mg b.i.d. IV Nephrology MICAELA on CKD likely due to VMN CKD stage 5, not in dialysis S/p tunneled dialysis catheter insertion - BUN creatinine worsening - monitor electrolytes and kidney function - patient underwent tunneled dialysis catheter insertion and got per session of dialysis today Infectious disease Possible infective endocarditis Urinary tract infection Pneumonia due to Proteus mirabilis ESBL - on vancomycin and meropenem - initial blood cultures showed no growth after 72 hours - preliminary urinary cultures show growth of less than 27678 colony-forming units - MRSA screen negative - respiratory culture showed growth of Proteus mirabilis ESBL, meropenem Endocrinology Type 2 diabetes mellitus - on tube feedings and insulin sliding scale DVT prophylaxis: On heparin PUD prophylaxis: On Protonix Tube feedings and lactulose Left IJ CVC placed on 06/02 Stevens's catheter placed on 06/02 Right subclavian tunneled dialysis catheter placed on 06/06 Goals of care discussed with the patient's daughter at bedside. Code status: Full code Critical care time excluding procedures: 83 minutes Plan discussed with Dr. Jordan Plan discussed with: Daughter, Other (ELISA Wiley) My Orders My Orders Orders - WARNER SANCHEZ RESIDENT Procedure Category Date Status Time Chest Xray 1 View XY 06/06/25 Resulted 04:00 Abg W/ Co-Ox RT 06/06/25 Logged 06:00 Lactulose Oral PHA 06/05/25 In Process 22:00 Ceftriaxone 2gm/50ml PHA 06/06/25 In Process D5w (Rocephin 2gm/5 10:00 Blood Culture ALESSIA 06/06/25 In Process 07:23 * Radiologist Consult CONS 06/06/25 Transmitted 09:21 Dietary Evaluation Review Comments: 1. TF Nepro Carbsteady @ 3ml/hr x 24 hr along with Pro-stat 1 pk BID. Start @ 20ml/hr, increase 10ml/hr Q4H until goal is reached. TF at goal volume provides 100% energy & protein needs - 1496 kcal, 89gm protein, 523 ml free water 2. Water flush 240ml Q6H if allowed, adjust PRN 3. TPN if NPO > 7 days 4.Monitor NPO status, lab values, wt trends, I/O Expected Outcomes/Goals: To meet >75% estimated needs Lab values to improve Fu 2-3 days Date of Service: Jun 06, 2025 Billing Provider: JEREMIAS JORDAN MD Common Visit Codes: 75275-[id number] CARE 30-74 MIN, 81030-[id number] CARE-EACH +30MIN WARNER SANCHEZ RESIDENT Jun 06, 2025 11:17 JEREMIAS JORDAN MD Jun 07, 2025 14:56
--- NOTE | 2025-06-06 12:20 | DVHPN2 ---
Progress Note Date Seen: Jun 06, 2025 Medical Necessity Reason Pt with a Central, PICC or Fol: Yes The following are medically ne: Stevens Catheter Reason for stevens catheter: Strict I&O Subjective Patient reports: Other (INTUBATED) Review of Systems: Deferred Objective vital signs Vital Sign Date Time Temp Pulse Resp B/P (MAP) Pulse Ox O2 Delivery O2 Flow Rate FiO2 06/06/25 09:45 79 17 145/72 (96) 95 30 06/06/25 08:02 97.9 97.9 06/06/25 08:00 Mechanical Ventilator+ Total Intake and Output 06/05/25 06/05/25 06/06/25 15:00 23:00 07:00 Intake Total 72.5 ml 290 ml 308 ml Output Total 650 ml 1100 ml Balance 72.5 ml -360 ml -792 ml medications Current Medications Medications Dose Ordered Sig/Rosa Route Start Time Stop Time Status Last Admin Dose Admin Midazolam HCl 50 ml @ 1 mls/hr Q24H IV 06/02/25 08:45 06/05/25 06:34 6 MLS/HR Fentanyl Citrate 250 ml @ 2.5 mls/hr Q24H IV 06/02/25 09:05 06/04/25 07:14 5 MLS/HR Pantoprazole Sodium 40 mg DAILY IV 06/03/25 10:00 06/06/25 09:43 40 MG Insulin Human Regular Q6HR SC 06/02/25 18:00 06/06/25 11:57 4 UNITS Dextrose 50 ml UD PRN IV 06/02/25 17:45 Diagnostic Test (Pha) 1 strip Q6HR 06/02/25 18:00 06/06/25 11:53 1 STRIP Aspirin 81 mg DAILY PO 06/02/25 19:00 06/06/25 09:41 81 MG Vancomycin HCl 0 ml @ 0 mls/hr UD IV 06/03/25 14:30 Enteral Nutritional Formula 1,000 ml 30ML/HR GT 06/04/25 14:30 06/04/25 19:11 1,000 ML Amino Acid Protein 30 ml BID GT 06/04/25 22:00 06/05/25 21:46 30 ML Heparin Sodium (Porcine) 5,000 units Q12HR SC 06/04/25 22:00 06/06/25 09:44 5,000 UNITS Lactulose 15 ml BID PO 06/05/25 22:00 06/06/25 09:42 15 ML Furosemide 40 mg BIDD IV 06/05/25 18:00 06/06/25 05:46 40 MG Ceftriaxone Sodium/Dextrose 50 ml @ 50 mls/hr DAILY IV 06/06/25 10:00 06/06/25 09:45 50 MLS/HR Examination: GENERAL:Abnormal, HEENT:Abnormal, LUNGS:Abnormal, MSK:Normal, SKIN:Normal, NEURO:Abnormal laboratory and microbiology Laboratory Tests 06/06/25 03:00 Test 06/06/25 03:00 Range/Units Serum Glucose 192 H 74-106 mg/dL Microbiology Date/Time Source Procedure Growth Status 06/03/25 17:20 Nose MRSA Screen - Final Complete 06/02/25 08:54 Sputum Gram Stain - Final Resulted 06/02/25 08:54 Sputum Respiratory Culture - Preliminary Resulted 06/02/25 08:49 Voided Urine Urine Culture - Final Complete 06/02/25 08:46 Blood Blood Culture - Preliminary NO GROWTH AFTER 72 HOURS OF INCUBATION. Resulted Problem List/Assessment/Plan Problem List/Assessment/Plan 1) Hemodynamically mediated acute kidney injury in the setting of hypotension, status post cardiac arrest and resuscitation--needing HD now 2) CKD stage five not on dialysis previosuly --being followed in [place]/Chronic kidney disease five status for more than one year 3) coronary artery disease 4) status post cardiac arrest 5) diabetes Acute hypoxic respiratory failure ventilator-dependent Legally blind Recommendations Lasix to 40 mg IV b.i.d. recommend HD at this point for solute clearance Not on any pressors today--not waking up Currently sedation off Worsening renal parameters noted informed patient's daughter and grandson s/p IR guided tunneled cath HD today on nepro Plan discussed with: Daughter, Other My Orders My Orders Orders - HUGO LEE MD Procedure Category Date Status Time Furosemide Injection PHA 06/05/25 In Process (Lasix Injection) 18:00 Dietary Evaluation Review Comments: 1. TF Nepro Carbsteady @ 3ml/hr x 24 hr along with Pro-stat 1 pk BID. Start @ 20ml/hr, increase 10ml/hr Q4H until goal is reached. TF at goal volume provides 100% energy & protein needs - 1496 kcal, 89gm protein, 523 ml free water 2. Water flush 240ml Q6H if allowed, adjust PRN 3. TPN if NPO > 7 days 4.Monitor NPO status, lab values, wt trends, I/O Expected Outcomes/Goals: To meet >75% estimated needs Lab values to improve Fu 2-3 days Critical Care Time (mins): 49 HUGO LEE MD Jun 06, 2025 12:20
--- NOTE | 2025-06-06 16:40 | DVHPN2 ---
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 undergoing hemodialysis at time of assessment Patient remains off of all sedations, not responding to verbal or tactile stimuli Objective vital signs Vital Sign Date Time Temp Pulse Resp B/P (MAP) Pulse Ox O2 Delivery O2 Flow Rate FiO2 06/06/25 16:15 73 19 112/62 (79) 99 06/06/25 16:04 30 06/06/25 16:00 Mechanical Ventilator+ 06/06/25 12:01 98.5 98.5 Total Intake and Output 06/05/25 06/05/25 06/06/25 15:00 23:00 07:00 Intake Total 72.5 ml 290 ml 308 ml Output Total 650 ml 1100 ml Balance 72.5 ml -360 ml -792 ml medications Current Medications Medications Dose Ordered Sig/Rosa Route Start Time Stop Time Status Last Admin Dose Admin Midazolam HCl 50 ml @ 1 mls/hr Q24H IV 06/02/25 08:45 06/05/25 06:34 6 MLS/HR Fentanyl Citrate 250 ml @ 2.5 mls/hr Q24H IV 06/02/25 09:05 06/04/25 07:14 5 MLS/HR Pantoprazole Sodium 40 mg DAILY IV 06/03/25 10:00 06/06/25 09:43 40 MG Insulin Human Regular Q6HR SC 06/02/25 18:00 06/06/25 11:57 4 UNITS Dextrose 50 ml UD PRN IV 06/02/25 17:45 Diagnostic Test (Pha) 1 strip Q6HR 06/02/25 18:00 06/06/25 11:53 1 STRIP Aspirin 81 mg DAILY PO 06/02/25 19:00 06/06/25 09:41 81 MG Vancomycin HCl 0 ml @ 0 mls/hr UD IV 06/03/25 14:30 Enteral Nutritional Formula 1,000 ml 30ML/HR GT 06/04/25 14:30 06/04/25 19:11 1,000 ML Amino Acid Protein 30 ml BID GT 06/04/25 22:00 06/05/25 21:46 30 ML Heparin Sodium (Porcine) 5,000 units Q12HR SC 06/04/25 22:00 06/06/25 09:44 5,000 UNITS Lactulose 15 ml BID PO 06/05/25 22:00 06/06/25 09:42 15 ML Furosemide 40 mg BIDD IV 06/05/25 18:00 06/06/25 05:46 40 MG Ceftriaxone Sodium/Dextrose 50 ml @ 50 mls/hr DAILY IV 06/06/25 10:00 06/06/25 09:45 50 MLS/HR Examination: GENERAL:Abnormal, LUNGS:Abnormal (Mechanically ventilated), CVS:Normal, NEURO:Abnormal (Off sedations, no response to verbal or tactile stimuli) laboratory and microbiology Laboratory Tests 06/06/25 03:00 Test 06/06/25 03:00 Range/Units Serum Glucose 192 H 74-106 mg/dL Problem List/Assessment/Plan Problem List/Assessment/Plan Cardiopulmonary arrest status post CPR with ROSC NSTEMI, rule out progressive coronary artery disease ?Infective endocarditis Coronary artery disease status post PTCA with multiple MORGAN Acute on chronic HFpEF, NYHA unspecified (patient intubated) Acute anemia status post PRBC transfusion Prolonged QTc interval Chronic kidney disease, now on hemodialysis Type 2 diabetes mellitus Plan/recommendations (Dr. Robison): Case discussed with . The patient came in status post cardiopulmonary arrest with CPR and return of spontaneous circulation. She went underwent a transthoracic echocardiogram which revealed an EF of 50% with a mobile vegetation at the base of the posterior mitral leaflet extending into the mid section of the posterior mitral leaflet. The patient then underwent a transesophageal echocardiogram which revealed a 2-3 mm vegetation in the inferior medial aspect of the base of the posterior mitral leaflet. A infectious disease consultation was recommended. At the time of assessment, the patient remains off of all sedations and is not responsive to any verbal or tactile stimuli. The patient may eventually benefit from a coronary angiogram with left and right heart catheterization. Today, the patient was initiated on hemodialysis. During physical exam, patient is still not responsive to verbal or tactile stimuli. We will consider for coronary angiogram if neurological status proves to be intact. In the meantime, given the patient's history of CAD, we will recommend to keep the patient's hemoglobin greater than 8.0. We will continue to follow closely. Continue with close cardiac surveillance. Thank you for allowing us to care for this patient. Please call with any questions or concerns. Critical care time spent: 35 minutes. This medical document was created using an electronic medical record system with voice recognition software and computerized dictation system. Although this document has been carefully reviewed, there might still be some phonetic and typographical errors. Occasional wrong-word or ``sound-alike substitutions may have occurred due to the inherent limitations of voice recognition software. These areas are purely typographical due to imperfections of the software programs and do not reflect any compromise in the patient's medical care. Please read the chart carefully and recognize, using context, where these substitutions have occurred. Plan discussed with: Other (Bedside RN) Dietary Evaluation Review Comments: 1. TF Nepro Carbsteady @ 3ml/hr x 24 hr along with Pro-stat 1 pk BID. Start @ 20ml/hr, increase 10ml/hr Q4H until goal is reached. TF at goal volume provides 100% energy & protein needs - 1496 kcal, 89gm protein, 523 ml free water 2. Water flush 240ml Q6H if allowed, adjust PRN 3. TPN if NPO > 7 days 4.Monitor NPO status, lab values, wt trends, I/O Expected Outcomes/Goals: To meet >75% estimated needs Lab values to improve Fu 2-3 days Date of Service: Jun 06, 2025 Billing Provider: TIANA ANDRADE Common Visit Codes: [id number] CARE 30-74 MIN TIANA ANDRAED Jun 06, 2025 16:40
[2025-06-06] MEDS: MEROPENEM 500MG IVPB 50 ML IV SCH (17:34)
[2025-06-06] MEDS: SODIUM CHL 0.9% 1000 ML BAG XX ONE (21:26)
[2025-06-06] MEDS: EPOETIN ALFA-EPBX 4,000 UNIT/ML VIAL SC ONE (21:27)
[2025-06-07] VITALS (90 sets, daily range): BP systolic 90–173; BP diastolic 47–111; PULSE 83–105; RESP 10–36; TEMP 97.8–100.8; O2SAT 96–100
[2025-06-07 04:13] LABS: Anion Gap 12 (5-15); Carbon Dioxide 31 mmol/L (20-31); Sodium 141 mmol/L (136-145)
[2025-06-07 04:14] LABS: Calcium 9.8 mg/dL (8.7-10.4)
[2025-06-07 04:19] LABS: BUN/Creatinine Ratio 19.1 (10.0-20.0)
[2025-06-07 04:21] LABS: Hematocrit 28.5 % (36.0-46.0); Hemoglobin 9.7 g/dL (12.2-16.2); Mean Corpuscular Hemoglobin 30.2 pg (28.0-32.0); Mean Corpuscular Volume 89.2 fL (80.0-100.0); Nucleated Red Blood Cells % 0.0 %
[2025-06-07 04:32] LABS: Blood Urea Nitrogen 73 mg/dL (9-23); Chloride 98 mmol/L (98-107); Glucose 245 mg/dL (74-106); Potassium 3.4 mmol/L (3.5-5.1)
--- NOTE | 2025-06-07 04:51 | DVH ---
CHEST RADIOGRAPH Indication: on vent., pulm edema Technique: Single frontal view of the chest was obtained COMPARISON: XY CHEST XRAY 1 VIEW on DOS: 06/06/25, XY CHEST XRAY 1 VIEW on DOS: 06/05/25, XY CHEST XRAY 1 VIEW on DOS: 06/03/25, XY CHEST XRAY 1 VIEW on DOS: 06/02/25, XY CHEST PORTABLE on DOS: 06/02/25 FINDINGS: Lines and Tubes: New right PermCath tip projects over the right atrium. Remaining lines and tubes un changed. Lungs: Diffuse bilateral pulmonary airspace disease and small left pleural effusion. No pneumothorax. Cardiomediastinal contours: Unremarkable Bones: Unremarkable IMPRESSION: 1. Diffuse bilateral pulmonary airspace disease and small left pleural effusion. 2. New right permCath with remaining lines and tubes unchanged.
[2025-06-07] MEDS: hydrALAZINE HCL 20 MG/ML VL IV PRN (06:19)
[2025-06-07] MEDS: POTASSIUM CHL 20MEQ/100ML 100 ML IV ONE (07:33)
[2025-06-07 07:43] LABS: Base Excess 5.8 mmol/L (-2.0-3.0)
--- NOTE | 2025-06-07 09:35 | DVH ---
XY Insertion of Venous Cath, HISTORY: HD CATH PL PROCEDURE: Informed consent was obtained. The patient was placed supine on the interventional table. A limited localization ultrasound of the right neck base was obtained. The right neck base and upper chest were prepped with chlorhexidine which was allowed to dry and draped in the usual sterile fashio n. Time out was performed. IV sedation was administered. The skin and the soft tissues were infiltrat ed with 1% Lidocaine. With real-time ultrasound guidance, the internal jugular vein was accessed with a micropuncture kit, and an image documenting patency was recorded to PACS. A subcutaneous tunneled tract was created from the right upper chest to the venotomy site. A 14.5 [place] Path, 19 cm lo ng hemodialysis catheter was advanced through the tunneled tract. Fluoroscopy was used to advance a guidewire through the internal jugular vein into the inferior vena cava. Following serial dilatation, a 15 [place] peel-away sheath was introduced, though which was adva nced the catheter into the right atrium. The catheter tip position was confirmed with fluoroscopy. Th ere was satisfactory flow in both lumens. The catheter lumens were flushed with saline and heparin wa s left indwelling in the catheter. A post-procedure image of the chest was obtained. The neck incisio n site was closed with pressure dressed sterilely. The catheter was sutured at the skin surface and e xit site also dressed sterilely. No immediate complication was identified. Air Kerma < 1 mGy FLUOROSCOPY TIME: 0.8 minutes. FINDINGS: Widely patent right IJV. Post procedure image demonstrates smooth course of the hemodialysi s catheter with the tip in the right atrium. IMPRESSION: Successful placement of 14.5 bel[place] Path, 19 cm long hemodialysis catheter through right software intern al jugular vein by Dr. Zuluaga. Plan: Please contact IR for removal when no longer needed.
--- NOTE | 2025-06-07 10:51 | DVHPNRES ---
Progress Note Date Seen: Jun 07, 2025 Resident Creating Document: WARNER SANCHEZ RESIDENT Medical Necessity Reason Pt with a Central, PICC or Fol: Yes The following are medically ne: Stevens Catheter Reason for stevens catheter: Strict I&O Subjective Review of Systems Patient is a 74-year-old female with a known history of HTN, diabetes mellitus, congestive heart failure with preserved ejection fraction, coronary artery disease (CAD) s/p 3-vessel stenting in 2019 (RCA, LCx, LAD), chronic kidney disease not on dialysis yet but stage 5, hyperlipidemia, and blindness who was brought in by EMS due to worsening shortness of breath. Patient's noted that early in May patient has started to have shortness of breath following which she was admitted at [facility] for 3 days patient was given diuresis and was discharged on Lasix 40 mg b.i.d. with the patient was apparently not that compliant with the medication ended up visiting her surveyor helper in the outpatient clinic where she was noticed to have respiratory distress and leg swelling following which she was referred to the ER where she got IV Lasix and was eventually discharged home. The surveyor helper they reported that he was not able to do angiography as patient had poor kidney function. Since then patient was at home but had been having worsening shortness of breath transitioning from NYHA class 3 to 4 and on Thursday morning had severe shortness of breath at rest EMS were called. While at home patient was responding and verbal. Able to the ER patient had severe shortness of breath and was not able to respond verbally and after few minutes while in the bed coded and underwent cardiac pulmonary arrest following which CPR was started and after 1 dose of epinephrine and 3 doses of sodium bicarbonate ROS was achieved in 6 minutes. Past medical history: Congestive heart failure (EF 55%), Coronary artery disease s/p 3-vessel stenting (2019), Chronic kidney disease, not on hemodialysis, Type 2 diabetes mellitus, Hyperlipidemia, Blindness, HTN Surgical history: PCI with stenting (RCA, LCx, LAD) in 2019 Social history: Patient lives at home with the daughter who is the chemical equipment repairer and does not smoke, drink, use drugs Home medications: rocaltrol, amldodipine, aspirin, atorvastatin, carvedilol, colistazol, famotidine, furosemide, glipizide, hydralazine, noroc , mirtazapine, sitagliptin and sodium bicarb HPI On admission patient had cardiopulmonary arrest following which high quality CPR was given and draws goals achieved in 6 minutes after 1 dose of epinephrine and 3 doses of sodium bicarbonate. Initial chest x-ray showed bilateral perihilar airspace opacities representing pulmonary edema. Head CT was done which showed no intracranial hemorrhage or mass effect, mild chronic microvascular ischemic changes and bilateral orbital pthisis bulbi. Initial labs showed elevated serum creatinine and BUN with a GFR of 9. Patient was started on 80 mg b.i.d. IV Lasix. Transthoracic Echocardiogram showed moderate thickening of mitral leaflets, mobile vegetation at the base of posterior mitral leaflet extending into the mid section of the posterior mitral leaflet with diminished excursion of the actual leaflet. There appears to be underlying mitral stenosis with diminished anterior leaflet function however thickening. There appears to be stenosis and thickening of the aortic valve leaflets as well with diminished excursion. LVEF at 50% with normal RV function, [id number] mitral insufficiency and some degree were aortic stenosis was noted, moderate tricuspid regurgitation. Transesophageal echocardiogram was done which showed 2-3 mm vegetation in the inferior medial aspect of the base of the posterior mitral leaflet. It appears to be much smaller than on previously evaluated transthoracic echocardiogram. Mild concentric LVH with a LVEF 55% and normal RV function Moderate mitral annular calcifications and thickening of mitral leaflets with Severe mitral insufficiency which was much worse than noted on the TTE , aortic stenosis noted with mild aortic insufficiency which was not quantified with GIRISH and continuous wave Doppler. There is moderate tricuspid regurgitation. Minute pericardial effusion not hemodynamically significant. Review of systems 06/07 Patient seen and examined at the bedside. Has been off sedation overnight. Patient in the morning was more responsive, grimacing on painful stimulation and has a strong gag reflex . Bilateral improved lung sounds. ABG shows mixed metabolic alkalosis with respiratory alkalosis. Overnight patient had maximum recorded fever of 100.8 F Overnight patient had urine output of 370 mL. patient's underwent hemodialysis yesterday with removal of 500 mL of fluid and is undergoing another hemodialysis today. Patient had 2 bowel movements which were dark and stool occult blood positive. She has bleeding from the site of the insertion of tunnel catheter following which heparin and aspirin were stopped. Patient to be transferred to [facility] she is currently in stable condition Objective vital signs Vital Sign Date Time Temp Pulse Resp B/P (MAP) Pulse Ox O2 Delivery O2 Flow Rate FiO2 06/07/25 10:05 86 18 114/52 (72) 98 30 06/07/25 10:00 Mechanical Ventilator+ 06/07/25 08:00 100.4 100.4 Total Intake and Output 06/06/25 06/06/25 06/07/25 15:00 23:00 07:00 Intake Total 50 ml 308 ml 430 ml Output Total 700 ml 371 ml Balance 50 ml -392 ml 59 ml medications Current Medications Medications Dose Ordered Sig/Rosa Route Start Time Stop Time Status Last Admin Dose Admin Midazolam HCl 50 ml @ 1 mls/hr Q24H IV 06/02/25 08:45 06/05/25 06:34 6 MLS/HR Fentanyl Citrate 250 ml @ 2.5 mls/hr Q24H IV 06/02/25 09:05 06/04/25 07:14 5 MLS/HR Pantoprazole Sodium 40 mg DAILY IV 06/03/25 10:00 06/07/25 09:08 40 MG Insulin Human Regular Q6HR SC 06/02/25 18:00 06/07/25 05:18 4 UNITS Dextrose 50 ml UD PRN IV 06/02/25 17:45 Diagnostic Test (Pha) 1 strip Q6HR 06/02/25 18:00 06/07/25 05:18 1 STRIP Aspirin 81 mg DAILY PO 06/02/25 19:00 06/06/25 09:41 81 MG Vancomycin HCl 0 ml @ 0 mls/hr UD IV 06/03/25 14:30 Enteral Nutritional Formula 1,000 ml 30ML/HR GT 06/04/25 14:30 06/06/25 21:48 1,000 ML Amino Acid Protein 30 ml BID GT 06/04/25 22:00 06/07/25 09:14 30 ML Lactulose 15 ml BID PO 06/05/25 22:00 06/07/25 09:07 15 ML Furosemide 40 mg BIDD IV 06/05/25 18:00 06/07/25 05:14 40 MG Meropenem 50 ml @ 17 mls/hr DAILY IV 06/06/25 16:45 06/07/25 09:07 17 MLS/HR Hydralazine HCl 10 mg Q6HP PRN IV 06/07/25 06:00 06/07/25 06:19 10 MG Albumin Human 100 ml @ 100 mls/hr Q1HR IV 06/07/25 11:00 7/30/25 12:59 UNV Examination neurological: Patient is off sedation and is on mechanical ventilation, good gag reflex, pupils not visualised as patient is blind, patient responds to physical stimulation with grimacing and mild limb contraction Gen - mild conjunctival pallor, no cyanosis, no clubbing, no LAD, no edema . Skin - Patients skin is warm and dry. HEENT - normocephalic, atraumatic, moist mucous membranes. Neck - no LAD, no JVD Pulmonary - B/L equal breath sounds, no significant rales, no wheezing, no stridor. cardiovascular - regular S1,S2 heard, no added sounds, systolic apical murmur heard. peripheral pulses normal radial 2+, pedal 1+. capillary refill normal <2 secs. GI - soft, nontender abdomen. no hepatospleenomegaly. Bowel sounds normoactive laboratory and microbiology Laboratory Tests 06/07/25 02:58 Test 06/07/25 02:58 Range/Units Serum Glucose 245 H 74-106 mg/dL Microbiology Date/Time Source Procedure Growth Status 06/06/25 08:45 Blood Blood Culture - Preliminary NO GROWTH AFTER 24 HOURS OF INCUBATION. Resulted 06/03/25 17:20 Nose MRSA Screen - Final Complete 06/02/25 08:54 Sputum Gram Stain - Final Complete 06/02/25 08:54 Respiratory Culture - Final Proteus mirabilis - ESBL Complete 06/02/25 08:49 Voided Urine Urine Culture - Final Complete Problem List/Assessment/Plan Problem List/Assessment/Plan Neurology Acute metabolic encephalopathy from likely hypoxic respiratory failure Cardiopulmonary arrest - RASS -4, patient grimacing and contracts extremity on painful stimulus, strong gag reflex - sedation turned off Respiratory Acute on chronic hypoxic respiratory failure likely from pulmonary edema Pulmonary edema likely due to mitral insufficiency/CKD Pneumonia due to Proteus mirabilis ESBL - on mechanical ventilation with a PEEP of 5, FiO2 30% - IV Lasix 40 mg b.i.d. - until 06/06 net negative fluid balance - ABG shows mixed metabolic alkalosis with respiratory alkalosis - chest x-ray shows congestion, small left pleural effusion similar to yesterday - sputum cultures show growth of Proteus mirabilis ESBL and patient is on meropenem Cardiovascular S/p cardiopulmonary arrest with ROSC Uqljishv-[id number] mitral regurgitation Possible infective endocarditis Moderate aortic stenosis NSTEMI likely type 2 from demand ischemia/cardiac arrest h/o CAD s/p PCI with MORGAN - on vancomycin and ceftriaxone - GIRISH shows [id number] mitral insufficiency, 2-3 mm vegetation in the inferior medial aspect of the base of the posterior mitral leaflet - LVEF 55% - Lasix 40 mg b.i.d. IV Nephrology MICAELA on CKD likely due to VMN CKD stage 5, not in dialysis S/p tunneled dialysis catheter insertion - BUN creatinine worsening - monitor electrolytes and kidney function - patient underwent tunneled dialysis catheter insertion on 06/06 - hemodialysis done on 06/06 and on 06/07 with a total of 1000ml fluid removed Infectious disease Possible infective endocarditis Urinary tract infection Pneumonia due to Proteus mirabilis ESBL - on vancomycin and meropenem - initial blood cultures showed no growth after 72 hours - preliminary urinary cultures show growth of less than 57539 colony-forming units - MRSA screen negative - respiratory culture showed growth of Proteus mirabilis ESBL, meropenem Endocrinology Type 2 diabetes mellitus - on tube feedings and insulin sliding scale Gastroenterology Possible upper GI bleed - dark stool noticed and stool occult blood positive - heparin stopped - monitor H&H DVT prophylaxis stopped due to stool occult blood positive PUD prophylaxis: On Protonix Tube feedings and lactulose Left IJ CVC placed on 06/02 Stevens's catheter placed on 06/02 Right subclavian tunneled dialysis catheter placed on 06/06 Goals of care discussed with the patient's daughter at bedside. Code status: Full code Critical care time excluding procedures: 81 minutes Plan discussed with Dr. Jordan Plan discussed with: Daughter My Orders My Orders Orders - WARNER SANCHEZ RESIDENT Procedure Category Date Status Time Meropenem 500mg Ivpb PHA 06/06/25 In Process (Merrem 500mg/Ns) 16:45 Chest Xray 1 View XY 06/07/25 Resulted 04:00 Abg W/ Co-Ox RT 06/07/25 Logged 04:00 Insertion Of Venous XY 06/06/25 Resulted Cath 08:28 Dietary Evaluation Review Comments: 1. TF Nepro Carbsteady @ 3ml/hr x 24 hr along with Pro-stat 1 pk BID. Start @ 20ml/hr, increase 10ml/hr Q4H until goal is reached. TF at goal volume provides 100% energy & protein needs - 1496 kcal, 89gm protein, 523 ml free water 2. Water flush 240ml Q6H if allowed, adjust PRN 3. TPN if NPO > 7 days 4.Monitor NPO status, lab values, wt trends, I/O Expected Outcomes/Goals: To meet >75% estimated needs Lab values to improve Fu 2-3 days Date of Service: Jun 07, 2025 Billing Provider: JEREMIAS JORDAN MD Common Visit Codes: [id number] CARE 30-74 MIN, [id number] CARE-EACH +30MIN WARNER SANCHEZ RESIDENT Jun 07, 2025 10:51 JEREMIAS JORDAN MD Jun 08, 2025 11:55
[2025-06-07] MEDS: VANCOMYCIN 500mg/100mL 100 ML IV ONE (10:52)
[2025-06-07] MEDS: SODIUM CHL 0.9% 1000 ML BAG XX ONE (10:58)
[2025-06-07] MEDS: ALBUMIN 25% 100 ML IV SCH (11:00)
--- NOTE | 2025-06-07 11:47 | MEDREC ---
[facility] ASP Intervention Section I [facility] ASP Intervention: Deescalate AB based on CS (PLEASE CONSIDER DE-ESCALATION BASED ON CULTURE RESULTS (D/C VANCOMYCIN) - NARES SCREENING FOR MRSA HAS A HIGH SPECIFICITY AND NEGATIVE PREDICTIVE VALUE FOR RULING OUT MRSA PNEUMONIA, PARTICULARLY IN CASES OF CAP/HCAP. BASED ON THE NEGATIVE PREDICITVE VALUE AND THE MRSA NARES NEGATIVE PLEASE CONSIDER D/C VANCOMYCIN - SPUTUM CULTURE GROWING PROTEUS MIRABILIS - ESBL (PATIENT ON MEROPENEM)) JOSÉ ANTONIO MEYER PHARMACIST Jun 07, 2025 11:47
--- NOTE | 2025-06-07 14:11 | DVHPN2 ---
Consult Progress Note Subjective Other Systems: Patient in normal sinus rhythm on continuous cardiac nurse practitioner. The patient remains off of chemical sedation, still not arousable verbal or tactile stimuli Objective vital signs Vital Sign Date Time Temp Pulse Resp B/P (MAP) Pulse Ox O2 Delivery O2 Flow Rate FiO2 06/07/25 13:56 96 24 125/60 (81) 99 30 06/07/25 10:00 Mechanical Ventilator+ 06/07/25 08:00 100.4 100.4 Total Intake and Output 06/06/25 06/06/25 06/07/25 15:00 23:00 07:00 Intake Total 50 ml 308 ml 430 ml Output Total 700 ml 371 ml Balance 50 ml -392 ml 59 ml medications Current Medications Medications Dose Ordered Sig/Rosa Route Start Time Stop Time Status Last Admin Dose Admin Midazolam HCl 50 ml @ 1 mls/hr Q24H IV 06/02/25 08:45 06/05/25 06:34 6 MLS/HR Fentanyl Citrate 250 ml @ 2.5 mls/hr Q24H IV 06/02/25 09:05 06/04/25 07:14 5 MLS/HR Pantoprazole Sodium 40 mg DAILY IV 06/03/25 10:00 06/07/25 09:08 40 MG Insulin Human Regular Q6HR SC 06/02/25 18:00 06/07/25 12:00 3 UNITS Dextrose 50 ml UD PRN IV 06/02/25 17:45 Diagnostic Test (Pha) 1 strip Q6HR 06/02/25 18:00 06/07/25 12:00 1 STRIP Aspirin 81 mg DAILY PO 06/02/25 19:00 06/06/25 09:41 81 MG Vancomycin HCl 0 ml @ 0 mls/hr UD IV 06/03/25 14:30 Enteral Nutritional Formula 1,000 ml 30ML/HR GT 06/04/25 14:30 06/06/25 21:48 1,000 ML Amino Acid Protein 30 ml BID GT 06/04/25 22:00 06/07/25 09:14 30 ML Lactulose 15 ml BID PO 06/05/25 22:00 06/07/25 09:07 15 ML Furosemide 40 mg BIDD IV 06/05/25 18:00 06/07/25 05:14 40 MG Meropenem 50 ml @ 17 mls/hr DAILY IV 06/06/25 16:45 06/07/25 09:07 17 MLS/HR Hydralazine HCl 10 mg Q6HP PRN IV 06/07/25 06:00 06/07/25 06:19 10 MG Examination: GENERAL:Abnormal, LUNGS:Abnormal (Mechanically ventilated), CVS:Normal, NEURO:Abnormal (Off sedations, not responsive to verbal or tactile stimuli) laboratory and microbiology Laboratory Tests 06/07/25 02:58 Test 06/07/25 02:58 Range/Units Serum Glucose 245 H 74-106 mg/dL Problem List/Assessment/Plan Problem List/Assessment/Plan Cardiopulmonary arrest status post CPR with ROSC NSTEMI, rule out progressive coronary artery disease ?Infective endocarditis Coronary artery disease status post PTCA with multiple MORGAN Acute on chronic HFpEF, NYHA unspecified (patient intubated) Acute anemia status post PRBC transfusion Prolonged QTc interval Chronic kidney disease, now on hemodialysis Type 2 diabetes mellitus Plan/recommendations (Dr. Robison): Case discussed with . The patient came in status post cardiopulmonary arrest with CPR and return of spontaneous circulation. She went underwent a transthoracic echocardiogram which revealed an EF of 50% with a mobile vegetation at the base of the posterior mitral leaflet extending into the mid section of the posterior mitral leaflet. The patient then underwent a transesophageal echocardiogram which revealed a 2-3 mm vegetation in the inferior medial aspect of the base of the posterior mitral leaflet. A infectious disease consultation was recommended. At the time of assessment, the patient remains off of all sedations and is not responsive to any verbal or tactile stimuli. The patient may eventually benefit from a coronary angiogram with left and right heart catheterization. Patient currently undergoing dialysis at time of assessment. During physical exam, patient is still not responsive to verbal or tactile stimuli. We will consider for coronary angiogram if neurological status proves to be intact. In the meantime, given the patient's history of CAD, we will recommend to keep the patient's hemoglobin greater than 8.0. We will continue to follow closely. Continue with close cardiac surveillance. Thank you for allowing us to care for this patient. Please call with any questions or concerns. Critical care time spent: 35 minutes. This medical document was created using an electronic medical record system with voice recognition software and computerized dictation system. Although this document has been carefully reviewed, there might still be some phonetic and typographical errors. Occasional wrong-word or ``sound-alike substitutions may have occurred due to the inherent limitations of voice recognition software. These areas are purely typographical due to imperfections of the software programs and do not reflect any compromise in the patient's medical care. Please read the chart carefully and recognize, using context, where these substitutions have occurred. Plan discussed with: Other (Family at bedside) Dietary Evaluation Review Comments: 1. TF Nepro Carbsteady @ 3ml/hr x 24 hr along with Pro-stat 1 pk BID. Start @ 20ml/hr, increase 10ml/hr Q4H until goal is reached. TF at goal volume provides 100% energy & protein needs - 1496 kcal, 89gm protein, 523 ml free water 2. Water flush 240ml Q6H if allowed, adjust PRN 3. TPN if NPO > 7 days 4.Monitor NPO status, lab values, wt trends, I/O Expected Outcomes/Goals: To meet >75% estimated needs Lab values to improve Fu 2-3 days Date of Service: Jun 07, 2025 Billing Provider: TIANA ANDRADE Common Visit Codes: 67631-[id number] CARE 30-74 MIN TIANA ANDRADE Jun 07, 2025 14:11
--- NOTE | 2025-06-07 17:00 | DVHPN2 ---
Progress Note Date Seen: Jun 07, 2025 Medical Necessity Reason Pt with a Central, PICC or Fol: Yes The following are medically ne: Stevens Catheter Reason for stevens catheter: Strict I&O Subjective Patient reports: Other Review of Systems: Deferred Objective vital signs Vital Sign Date Time Temp Pulse Resp B/P (MAP) Pulse Ox O2 Delivery O2 Flow Rate FiO2 06/07/25 16:15 98 17 160/71 (100) 98 06/07/25 16:04 30 06/07/25 16:00 Mechanical Ventilator+ 06/07/25 12:00 98.0 98.0 Total Intake and Output 06/06/25 06/06/25 06/07/25 15:00 23:00 07:00 Intake Total 50 ml 308 ml 430 ml Output Total 700 ml 371 ml Balance 50 ml -392 ml 59 ml medications Current Medications Medications Dose Ordered Sig/Rosa Route Start Time Stop Time Status Last Admin Dose Admin Midazolam HCl 50 ml @ 1 mls/hr Q24H IV 06/02/25 08:45 06/05/25 06:34 6 MLS/HR Fentanyl Citrate 250 ml @ 2.5 mls/hr Q24H IV 06/02/25 09:05 06/04/25 07:14 5 MLS/HR Pantoprazole Sodium 40 mg DAILY IV 06/03/25 10:00 06/07/25 09:08 40 MG Insulin Human Regular Q6HR SC 06/02/25 18:00 06/07/25 12:00 3 UNITS Dextrose 50 ml UD PRN IV 06/02/25 17:45 Diagnostic Test (Pha) 1 strip Q6HR 06/02/25 18:00 06/07/25 12:00 1 STRIP Aspirin 81 mg DAILY PO 06/02/25 19:00 06/06/25 09:41 81 MG Vancomycin HCl 0 ml @ 0 mls/hr UD IV 06/03/25 14:30 Enteral Nutritional Formula 1,000 ml 30ML/HR GT 06/04/25 14:30 06/06/25 21:48 1,000 ML Amino Acid Protein 30 ml BID GT 06/04/25 22:00 06/07/25 09:14 30 ML Lactulose 15 ml BID PO 06/05/25 22:00 06/07/25 09:07 15 ML Furosemide 40 mg BIDD IV 06/05/25 18:00 06/07/25 05:14 40 MG Meropenem 50 ml @ 17 mls/hr DAILY IV 06/06/25 16:45 06/07/25 09:07 17 MLS/HR Hydralazine HCl 10 mg Q6HP PRN IV 06/07/25 06:00 06/07/25 06:19 10 MG Examination: GENERAL:Abnormal, HEENT:Abnormal, NEURO:Abnormal laboratory and microbiology Laboratory Tests 06/07/25 02:58 Test 06/07/25 02:58 Range/Units Serum Glucose 245 H 74-106 mg/dL Microbiology Date/Time Source Procedure Growth Status 06/06/25 08:45 Blood Blood Culture - Preliminary NO GROWTH AFTER 24 HOURS OF INCUBATION. Resulted 06/03/25 17:20 Nose MRSA Screen - Final Complete 06/02/25 08:54 Sputum Gram Stain - Final Complete 06/02/25 08:54 Respiratory Culture - Final Proteus mirabilis - ESBL Complete 06/02/25 08:49 Voided Urine Urine Culture - Final Complete Problem List/Assessment/Plan Problem List/Assessment/Plan 1) Hemodynamically mediated acute kidney injury in the setting of hypotension, status post cardiac arrest and resuscitation--needing HD now 2) CKD stage five not on dialysis previosuly --being followed in [place]/Chronic kidney disease five status for more than one year 3) coronary artery disease 4) status post cardiac arrest 5) diabetes Acute hypoxic respiratory failure ventilator-dependent Legally blind Recommendations HD today Not on any pressors today--not waking up Currently sedation off s/p IR guided tunneled cath plan for [place] transfer noted Plan discussed with: Other My Orders My Orders Orders - HUGO LEE MD Procedure Category Date Status Time Hemodialysis Orders ORDERS 06/07/25 Transmitted 10:28 Dietary Evaluation Review Comments: 1. TF Nepro Carbsteady @ 3ml/hr x 24 hr along with Pro-stat 1 pk BID. Start @ 20ml/hr, increase 10ml/hr Q4H until goal is reached. TF at goal volume provides 100% energy & protein needs - 1496 kcal, 89gm protein, 523 ml free water 2. Water flush 240ml Q6H if allowed, adjust PRN 3. TPN if NPO > 7 days 4.Monitor NPO status, lab values, wt trends, I/O Expected Outcomes/Goals: To meet >75% estimated needs Lab values to improve Fu 2-3 days HUGO LEE MD Jun 07, 2025 17:00
--- NOTE | 2025-06-07 17:15 | DVHDSRES ---
Discharge Summary Date of Admission Resident Creating Document: WARNER SANCHEZ RESIDENT Jun 02, 2025 at 17:24 Date of Discharge: Jun 07, 2025 Admitting Diagnosis #Acute metabolic encephalopathy due to cardiac arrest #Cardiac arrest #Cardiac arrest with need of defibrillation #CAD s/p 3x stent #Acute on chronic heart failure with diastolic dysfunction #moderate mitral stenosis #moderate mitral regurgitation #LA enlargement #moderate #septic shock? #Cardiogenic shock? #Hypertensive heart disease #NSTEMI? #Acute respiratory failure [facility] due to cardiac arrest #Pulmonary edema #MICAELA on CKD stage 5 #fluid overload #Transaminitis #Leukocytosis due to sepsis #Anemia normochromic normocytic due to renal disease Wounds: none Labs/Diagnostic Data: Laboratory Results Test 06/07/25 12:21 06/07/25 07:16 06/07/25 06:45 06/07/25 02:58 POC Glucose 178 mg/dl (70-106) Blood Gas Specimen Type Arterial Blood Gas Sample Site Left radial Blood Gas Patient Temperature 37.0 Arterial Blood Date Drawn [id number] Arterial Blood pH 7.492 (7.350-7.450) Arterial Blood Partial Pressure CO2 39.5 mmHg (32.0-45.0) Arterial Blood Partial Pressure O2 86.1 mmHg (83.0-108.0) Arterial Blood HCO3 29.6 mmol/L (21.0-28.0) Arterial Blood Oxygen Saturation 96.1 % (94.0-98.0) Arterial Blood Base Excess 5.8 mmol/L (-2.0-3.0) Arterial Blood Oxyhemoglobin 95.0 % (94.0-98.0) Arterial Blood Carboxyhemoglobin 0.8 % (0.5-1.5) Arterial Blood Methemoglobin 0.3 % (0.0-1.5) Dagoberto Test Modified Blood Gas Total Hemoglobin 10.80 g/dL (12.0-16.0) Blood Gas Set Respiration Rate 16.0 Blood Gas Modality Vent - ac FiO2 % 30.0 Blood Gas Tidal Volume 400.0 Blood Gas PEEP or CPAP 5.0 Stool Occult Blood Pos x1 (Negative) Stool Occult Blood Sample #3 (Negative) White Blood Count 9.8 10^3/uL (4.4-10.8) Red Blood Count 3.20 10^6/uL (4.0-5.20) Hemoglobin 9.7 g/dL (12.2-16.2) Hematocrit 28.5 % (36.0-46.0) Mean Corpuscular Volume 89.2 fL (80.0-100.0) Mean Corpuscular Hemoglobin 30.2 pg (28.0-32.0) Mean Corpuscular Hemoglobin Concent 33.9 g/dL (32.0-36.0) Red Cell Distribution Width 19.0 % (11.8-14.3) Platelet Count 308 10^3/uL (140-450) Mean Platelet Volume 9.0 fL (6.9-10.8) Neutrophils (%) (Auto) 82.4 % (37.0-80.0) Lymphocytes (%) (Auto) 7.6 % (10.0-50.0) Monocytes (%) (Auto) 8.4 % (0.0-12.0) Eosinophils (%) (Auto) 1.0 % (0.0-7.0) Basophils (%) (Auto) 0.6 % (0.0-2.0) Neutrophils # (Auto) 8.0 10 ^3/uL (1.6-8.6) Lymphocytes # (Auto) 0.7 10 ^3/uL (0.4-5.4) Monocytes # (Auto) 0.8 10 ^3/uL (0-1.3) Eosinophils # (Auto) 0.1 10 ^3/uL (0-0.8) Basophils # (Auto) 0.1 10 ^3/uL (0-0.2) Nucleated Red Blood Cells 0.0 % Sodium Level 141 mmol/L (136-145) Potassium Level 3.4 mmol/L (3.5-5.1) Chloride Level 98 mmol/L (98-107) Carbon Dioxide Level 31 mmol/L (20-31) Anion Gap 12 (5-15) Blood Urea Nitrogen 73 mg/dL (9-23) Creatinine 3.82 mg/dL (0.550-1.02) Glomerular Filtration Rate Calc 12 mL/min (>90) BUN/Creatinine Ratio 19.1 (10.0-20.0) Serum Glucose 245 mg/dL (74-106) Calcium Level 9.8 mg/dL (8.7-10.4) Magnesium Level 2.3 mg/dL (1.6-2.6) Random Vancomycin Level 12.4 ug/mL (5-10) Test 06/05/25 12:57 06/04/25 02:45 06/03/25 14:09 06/03/25 02:50 Rheumatoid Factor 15.4 IU/mL (<14.0) Hepatitis B Surface Antigen Negative (Negative) D-Dimer, Quantitative 7.19 mg/L FEU (0.0-0.49) Prothrombin Time 11.5 sec (9.3-11.8) Prothrombin Time INR 1.09 (0.9-1.15) Activated Partial Thromboplast Time 27.4 SEC (24.5-34.5) Hemoglobin A1c < 3.8 % A1C (<5.7) Phosphorus Level 5.1 mg/dL (2.4-5.1) Total Bilirubin 0.6 mg/dL (0.2-1.0) Aspartate Amino Transferase (AST) 90 U/L (13-40) Alanine Aminotransferase (ALT) 114 U/L (7-40) Alkaline Phosphatase 60 U/L (46-116) B-Type Natriuretic Peptide 444.26 pg/mL (0-100) Total Protein 6.0 g/dL (5.7-8.2) Albumin 3.4 g/dL (3.2-4.8) Triglycerides Level 99 mg/dL (< 150) Cholesterol Level 105 mg/dL (< 200) LDL Cholesterol 49 mg/dL (< 100) HDL Cholesterol 34 mg/dL (40-59) Thyroid Stimulating Hormone (TSH) 0.66 uIU/mL (0.55-4.78) Test 06/02/25 19:57 06/02/25 18:18 06/02/25 10:54 06/02/25 08:49 Troponin I High Sensitivity 101 ng/L (</=34) Influenza Type A Antigen Negative (Negative) Influenza Type B Antigen Negative (Negative) SARS-CoV-2 Antigen (Rapid) Negative (NEGATIVE) Lactic Acid Level 2.1 mmol/L (0.4-2.0) Urine Color Light-yellow (Yellow) Urine Clarity Turbid (Clear) Urine pH 5.5 (5.0-9.0) Urine Specific [place] 1.011 (1.001-1.035) Urine Protein 1+ (Negative) Urine Ketones Negative (Negative) Urine Blood Trace /uL (Negative) Urine Nitrite Negative (Negative) Urine Bilirubin Negative (Negative) Urine Urobilinogen Normal mg/dL (Negative) Urine Leukocyte Esterase 2+ /uL (Negative) Urine RBC 5 /hpf (0 - 4) Urine WBC Clumps Present /hpf (None Seen) Urine Microscopic WBC 92 /HPF (0-5) Urine Squamous Epithelial Cells Few /hpf (<5) Urine Bacteria Few /hpf (None Seen) Urine Mucus Few (None Seen) Urine Glucose 2+ mg/dL (Normal) Urine Opiates Screen Neg (NEGATIVE) Urine Fentanyl Screen Neg (NEGATIVE) Urine Barbiturates Screen Neg (NEGATIVE) Urine Phencyclidine Screen Neg (NEGATIVE) Urine Amphetamines Screen Neg (NEGATIVE) Urine Benzodiazepines Screen Neg (NEGATIVE) Urine Cocaine Screen Neg (NEGATIVE) Urine Cannabinoids Screen Neg (NEGATIVE) Other Laboratory Tests 06/07/25 02:58 Brief Hx & Hospital Course: Patient is a 74-year-old female with a known history of HTN, diabetes mellitus, congestive heart failure with preserved ejection fraction, coronary artery disease (CAD) s/p 3-vessel stenting in 2019 (RCA, LCx, LAD), chronic kidney disease not on dialysis yet but stage 5, hyperlipidemia, and blindness who was brought in by EMS due to worsening shortness of breath. Patient's noted that early in May patient has started to have shortness of breath following which she was admitted at [facility] for 3 days patient was given diuresis and was discharged on Lasix 40 mg b.i.d. with the patient was apparently not that compliant with the medication ended up visiting her clay modeler in the outpatient clinic where she was noticed to have respiratory distress and leg swelling following which she was referred to the ER where she got IV Lasix and was eventually discharged home. The clay modeler they reported that he was not able to do angiography as patient had poor kidney function. Since then patient was at home but had been having worsening shortness of breath transitioning from NYHA class 3 to 4 and on Thursday morning had severe shortness of breath at rest EMS were called. While at home patient was responding and verbal. Able to the ER patient had severe shortness of breath and was not able to respond verbally and after few minutes while in the bed coded and underwent cardiac pulmonary arrest following which CPR was started and after 1 dose of epinephrine and 3 doses of sodium bicarbonate ROS was achieved in 6 minutes. Initial chest x-ray showed bilateral perihilar airspace opacities representing pulmonary edema. Head CT was done which showed no intracranial hemorrhage or mass effect, mild chronic microvascular ischemic changes and bilateral orbital pthisis bulbi. Initial labs showed elevated serum creatinine and BUN with a GFR of 9. Patient was started on 80 mg b.i.d. IV Lasix. Patient underwent a transthoracic echocardiogram which showed moderate thickening of mitral leaflets, mobile vegetation at the base of posterior mitral leaflet extending into the mid section of the posterior mitral leaflet with diminished excursion of the actual leaflet. There appears to be underlying mitral stenosis with diminished anterior leaflet function however thickening. There appears to be stenosis and thickening of the aortic valve leaflets as well with diminished excursion. LVEF at 50% with normal RV function, [id number]-[id number] mitral insufficiency and some degree were aortic stenosis was noted, moderate tricuspid regurgitation. With the suspicion of endocarditis clay modeler under took with the patient for transesophageal echocardiogram which showed 2-3 mm vegetation in the inferior medial aspect of the base of the posterior mitral leaflet. It appears to be much smaller than on previously evaluated transthoracic echocardiogram. Mild concentric LVH with a LVEF 55% and normal RV function. Moderate mitral annular calcifications and thickening of mitral leaflets with Severe mitral insufficiency which was much worse than noted on the TTE , aortic stenosis noted with mild aortic insufficiency which was not quantified with GIRISH and continuous wave Doppler. There is moderate tricuspid regurgitation. Minute pericardial effusion not hemodynamically significant. Patient has had good urine output with the Lasix but her kidney function was worsening with the elevation of BUN and creatinine following which nephrology recommended hemodialysis for which right subclavian tunneled catheter was inserted by Interventional Radiology and patient underwent 2 cycles of hemodialysis with a total of 1 L of fluid removed. Since the patient has been in the hospital she has a net negative fluid balance of -6591 mL till the time this discharge summary is written. Patient continued to have intermittent fevers ranging up to 101 degree F. sputum culture showed growth of Proteus mirabilis ESBL and with the suspicion of endocarditis patient is on treatment with meropenem and vancomycin. Patient's sedation was turned off on 06/05 and gradually she has been more responsive but currently no responds to voice but grimacing and retraction of extremities on physical stimulation. Patient is likely under prolonged effects of sedation because of her poor kidney function. After the dialysis BUN and creatinine trended down. Patient had a bowel movement which was dark and stool occult blood was positive but H&H is stable, prophylactic heparin was stopped. Patient continues to be on minimal ventilator settings with a FiO2 30%, peep of 5, respiratory rate 16, tidal volume 400 mL. Initial blood cultures did not show any growth after 5 days of incubation and repeat blood cultures on 06/06 have not shown any growth after 24 hours of incubation. Patient is deemed stable for transfer to [facility] for further management of her acute condition. Physical examination neurological: Patient is off sedation and is on mechanical ventilation, good gag reflex, pupils not visualised as patient is blind, patient responds to physical stimulation with grimacing and mild limb contraction Gen - mild conjunctival pallor, no cyanosis, no clubbing, no LAD, no edema . Skin - Patients skin is warm and dry. HEENT - normocephalic, atraumatic, moist mucous membranes. Neck - no LAD, no JVD Pulmonary - B/L equal breath sounds, no significant rales, no wheezing, no stridor. cardiovascular - regular S1,S2 heard, no added sounds, systolic apical murmur heard. peripheral pulses normal radial 2+, pedal 1+. capillary refill normal <2 secs. GI - soft, nontender abdomen. no hepatospleenomegaly. Bowel sounds normoactive critical care time excluding procedures is 81 mins Consults/Reason for consult Nephrology consult MICAELA on CKD Cardiology consult for cardiac pulmonary arrest s/p ROSC Operations or Procedures Operative Report - 2 Report Details Date: 06/04/25 Preop Diagnosis: Endocarditis Postop Diagnosis: Endocarditis Surgeon: Natalie Robison MD Anesthesiologist: Deep sedation Anesthesia: Mac, Local Consent: The patient was informed of the risks and benefits of the procedure. These include but are not limited to complications of anesthesia, postoperative infection, incomplete relief of symptoms, recurrence of symptoms, damage to blood vessels, nerves and tendons, deep venous thrombosis, pulmonary embolism and possible need for repeat surgery in the future. Complications: No complications Findings: Mitral valve vegetation Indications for Surgery: Vegetation Name of Procedure Performed Transesophageal echocardiography Procedure Details Procedure Details: Prior full informed consent obtained from family. The patient previously intubated and sedated underwent transesophageal echocardiographic evaluation. Transthoracic ECHO had revealed a mitral vegetation. A transesophageal probe was passed without difficulty. Standard views obtained. Conclusions Technically good study. Sinus rhythm. Mild concentric LVH. Left atrial enlargement. Moderate mitral annular calcification and thickening of the mitral leaflets. The base of the mitral leaflets have diminished excursion however the mid and distal segments appeared to have good aperture and slight prolapse. The aortic valve has moderate calcification and diminished excursion there is upaoxlir-aw-arabosbfwlr degree of aortic stenosis. The tricuspid is structurally normal. The pulmonic structurally normal. Left ventricular systolic performance is preserved. EF is about 55%. Normal RV function. There is mtsvxdcg-ar-tigeww mitral insufficiency. Aortic stenosis noted given aliasing noted across the aortic valves with mild aortic insufficiency. This was not quantified with GIRISH and continuous wave Doppler. There is moderate tricuspid regurgitation. No pulmonic insufficiency identified in the study. The mitral insufficiency appears to be much worse than in previous transthoracic echocardiographic evaluation. There is a pleural effusion. There is a minute pericardial effusion not hemodynamically significant. There appears to be a 2-3 mm vegetation in the inferior medial aspect of the base of the posterior mitral leaflet. It appears to be much smaller than on previously evaluated transthoracic echocardiogram. Condition Guarded Disposition 2 Still a Patient Date of Service: Jun 04, 2025 Billing Provider: NATALIE ROBISON Sr., MD Cardiology Common Codes: 86907-[id number] INP/OBS CARE (High) Cardiology Procedure Codes: 35508-GBN W/IMG DOC INCL PROB ACQ NATALIE ROBISON Sr., MD Jun 04, 2025 17:56 Condition at Discharge: Critical Final Diagnosis/Problems List Acute metabolic encephalopathy from likely hypoxic respiratory failure Cardiopulmonary arrest Acute on chronic hypoxic respiratory failure likely from pulmonary edema Pulmonary edema likely due to mitral insufficiency/CKD Pneumonia due to Proteus mirabilis ESBL Possible upper GI bleed Type 2 diabetes mellitus Urinary tract infection MICAELA on CKD likely due to VMN CKD stage 5, not in dialysis S/p tunneled dialysis catheter insertion S/p cardiopulmonary arrest with ROSC Hzmhclex-vw-nlyxfg mitral regurgitation Possible infective endocarditis Moderate aortic stenosis NSTEMI likely type 2 from demand ischemia/cardiac arrest h/o CAD s/p PCI with MORGAN Discharge Disposition: Acute Care Facility Discharge Instruct/Medications Diet: See Comment Diet comment: tube feedings Activity: Bed rest Follow Up/Referral: fu with amish Medications: per jan Scheduled 1, 25 Dihydroxycholecalciferol (Rocaltrol Capsule), 1 CAP PO DAILY, (Reported) Amlodipine Besylate (Amlodipine Besylate), 1 TAB PO DAILY, (Reported) Aspirin (Aspirin), 81 MG PO DAILY, (Reported) Atorvastatin Calcium (Atorvastatin Calcium), 40 MG PO DAILY, (Reported) Carvedilol (Carvedilol), 1 TAB PO BID, (Reported) Cefdinir (Cefdinir), 1 CAP PO BID Cilostazol (Cilostazol), 100 MG PO BID, (Reported) Famotidine (Acid Toe Stripper), 10 MG PO DAILY, (Reported) Furosemide (Furosemide), 1 TAB PO BID, (Reported) Glipizide (Glipizide), 5 MG PO BID, (Reported) Hydralazine HCl (Hydralazine HCl), 1 TAB PO TID, (Reported) Mirtazapine (Mirtazapine Oral Disintegrating Tablet), 1 TAB PO DAILY, (Reported) Multiple Vitamins W/ Minerals (Multivitamin), 1 TAB PO DAILY, (Reported) Sitagliptin (Sitagliptin), 1 TAB PO DAILY, (Reported) Sodium Bicarbonate (Sodium Bicarbonate), 3 TAB PO TID, (Reported) Scheduled PRN Hydrocodone-Acetaminophen (Hydrocodone/Acetaminophen 5-325 mg), 1 TAB PO BIDPRN PRN, (Reported) Discharge Statement: "Patient was advised to return to the ER or call 911 if any headaches, dizziness, shortness of breath, chest pain, abdominal pain, bleeding, fevers, or worsening of medical condition. Patient was counseled about treatment plan, medications, possible side effects, patientverbalized understanding. All questions were answered to the best of my ability. This discharge took greater then 30 minutes in planning, reviewing documentation, counseling the patient, and discussing with other team members." ASSESSMENT ASSESSMENT Assessment Endocarditis Date of Service: Jun 07, 2025 Billing Provider: JEREMIAS JORDAN MD Common Visit Codes: 57023-[id number] CARE 30-74 MIN, [id number] CARE-EACH +30MIN WARNER SANCHEZ RESIDENT Jun 07, 2025 17:15 JEREMIAS JORDAN MD Jun 08, 2025 11:56
[2025-06-08] VITALS (89 sets, daily range): BP systolic 85–148; BP diastolic 30–74; PULSE 75–102; RESP 9–35; TEMP 99–101.7; O2SAT 96–100
[2025-06-08] MEDS: ACETAMINOPHEN IV 1000 MG/100ML (10MG/ML) IV ONE (00:59)
[2025-06-08 04:14] LABS: Hematocrit 28.8 % (36.0-46.0); Hemoglobin 9.7 g/dL (12.2-16.2); Mean Corpuscular Hemoglobin 30.2 pg (28.0-32.0); Mean Corpuscular Volume 90.1 fL (80.0-100.0); Nucleated Red Blood Cells % 0.1 %
[2025-06-08 04:22] LABS: Anion Gap 11 (5-15); Calcium 9.9 mg/dL (8.7-10.4); Carbon Dioxide 30 mmol/L (20-31); Chloride 100 mmol/L (98-107); Potassium 3.6 mmol/L (3.5-5.1); Sodium 141 mmol/L (136-145)
[2025-06-08 04:28] LABS: BUN/Creatinine Ratio 18.3 (10.0-20.0)
[2025-06-08 04:29] LABS: Blood Urea Nitrogen 58 mg/dL (9-23); Glucose 247 mg/dL (74-106)
--- NOTE | 2025-06-08 05:30 | DVH ---
CHEST RADIOGRAPH Indication: on vent, severe MR Technique: Single frontal view of the chest was obtained Comparison: XY CHEST XRAY 1 VIEW on DOS: 06/07/25 FINDINGS: Lines and Tubes: The endotracheal tube terminates 3.1 cm above the linda. Right central venous cath eter terminates in the right atrium. The enteric tube courses below the left hemidiaphragm and the ti p extends outside the field of view. Left central venous catheter terminates in the superior vena cav a. Lungs: Left basilar opacity noted. Pleura: Small left pleural effusion. No pneumothorax. Cardiomediastinal contours: Unremarkable Bones: No acute osseous abnormality. IMPRESSION: 1. Left basilar opacity and small left pleural effusions similar to prior study. 2. Stable cardiovascular silhouette.
[2025-06-08 07:45] LABS: Base Excess 2.4 mmol/L (-2.0-3.0)
[2025-06-08] MEDS: VANCOMYCIN 500mg/100mL 100 ML IV ONE (11:00)
--- NOTE | 2025-06-08 14:22 | DVHPN2 ---
Consult Progress Note Subjective Other Systems: Patient remains in normal sinus rhythm on cardiac catheterization technologist. Patient remains off of chemical sedations, still not waking up Objective vital signs Vital Sign Date Time Temp Pulse Resp B/P (MAP) Pulse Ox O2 Delivery O2 Flow Rate FiO2 06/08/25 12:18 78 16 97/44 (61) 98 30 06/08/25 12:00 Mechanical Ventilator+ 06/08/25 04:00 99.7 99.7 Total Intake and Output 06/07/25 06/07/25 06/08/25 15:00 23:00 07:00 Intake Total 401 ml 375 ml 560 ml Output Total 150 ml 103 ml Balance 401 ml 225 ml 457 ml medications Current Medications Medications Dose Ordered Sig/Rosa Route Start Time Stop Time Status Last Admin Dose Admin Midazolam HCl 50 ml @ 1 mls/hr Q24H IV 06/02/25 08:45 06/05/25 06:34 6 MLS/HR Fentanyl Citrate 250 ml @ 2.5 mls/hr Q24H IV 06/02/25 09:05 06/04/25 07:14 5 MLS/HR Pantoprazole Sodium 40 mg DAILY IV 06/03/25 10:00 06/08/25 10:53 40 MG Insulin Human Regular Q6HR SC 06/02/25 18:00 06/08/25 12:45 6 UNITS Dextrose 50 ml UD PRN IV 06/02/25 17:45 Diagnostic Test (Pha) 1 strip Q6HR 06/02/25 18:00 06/08/25 12:00 1 STRIP Vancomycin HCl 0 ml @ 0 mls/hr UD IV 06/03/25 14:30 Enteral Nutritional Formula 1,000 ml 30ML/HR GT 06/04/25 14:30 06/06/25 21:48 1,000 ML Amino Acid Protein 30 ml BID GT 06/04/25 22:00 06/08/25 10:53 30 ML Lactulose 15 ml BID PO 06/05/25 22:00 06/08/25 00:36 15 ML Furosemide 40 mg BIDD IV 06/05/25 18:00 06/08/25 04:47 40 MG Meropenem 50 ml @ 17 mls/hr DAILY IV 06/06/25 16:45 06/08/25 10:53 17 MLS/HR Hydralazine HCl 10 mg Q6HP PRN IV 06/07/25 06:00 06/07/25 06:19 10 MG Acetaminophen 650 mg Q6HP PRN GT 06/08/25 00:45 Examination: GENERAL:Abnormal, LUNGS:Abnormal (Mechanically ventilated), CVS:Normal, NEURO:Abnormal (Off sedations, not responsive to verbal tactile stimuli) laboratory and microbiology Laboratory Tests 06/08/25 03:47 Test 06/08/25 03:47 Range/Units Serum Glucose 247 H 74-106 mg/dL Problem List/Assessment/Plan Problem List/Assessment/Plan Cardiopulmonary arrest status post CPR with ROSC NSTEMI, rule out progressive coronary artery disease ?Infective endocarditis Coronary artery disease status post PTCA with multiple MORGAN Acute on chronic HFpEF, NYHA unspecified (patient intubated) Acute anemia status post PRBC transfusion Prolonged QTc interval Chronic kidney disease, now on hemodialysis Type 2 diabetes mellitus Plan/recommendations (Dr. Robison): Case discussed with . The patient came in status post cardiopulmonary arrest with CPR and return of spontaneous circulation. She went underwent a transthoracic echocardiogram which revealed an EF of 50% with a mobile vegetation at the base of the posterior mitral leaflet extending into the mid section of the posterior mitral leaflet. The patient then underwent a transesophageal echocardiogram which revealed a 2-3 mm vegetation in the inferior medial aspect of the base of the posterior mitral leaflet. A infectious disease consultation was recommended. At the time of assessment, the patient remains off of all sedations and is not responsive to any verbal or tactile stimuli. The patient may eventually benefit from a coronary angiogram with left and right heart catheterization. During physical exam, patient is still not responsive to verbal or tactile stimuli. We will consider for coronary angiogram if neurological status proves to be intact. Brain MRI has been ordered by primary care team. In the meantime, given the patient's history of CAD, we will recommend to keep the patient's hemoglobin greater than 8.0. We will continue to follow closely. Continue with close cardiac surveillance. Thank you for allowing us to care for this patient. Please call with any questions or concerns. Critical care time spent: 35 minutes. This medical document was created using an electronic medical record system with voice recognition software and computerized dictation system. Although this document has been carefully reviewed, there might still be some phonetic and typographical errors. Occasional wrong-word or ``sound-alike substitutions may have occurred due to the inherent limitations of voice recognition software. These areas are purely typographical due to imperfections of the software programs and do not reflect any compromise in the patient's medical care. Please read the chart carefully and recognize, using context, where these substitutions have occurred. Plan discussed with: Daughter, Other (Bedside RN) Dietary Evaluation Review Comments: 1. TF Nepro Carbsteady @ 3ml/hr x 24 hr along with Pro-stat 1 pk BID. Start @ 20ml/hr, increase 10ml/hr Q4H until goal is reached. TF at goal volume provides 100% energy & protein needs - 1496 kcal, 89gm protein, 523 ml free water 2. Water flush 240ml Q6H if allowed, adjust PRN 3. TPN if NPO > 7 days 4.Monitor NPO status, lab values, wt trends, I/O Expected Outcomes/Goals: To meet >75% estimated needs Lab values to improve Fu 2-3 days Date of Service: Jun 08, 2025 Billing Provider: TIANA ANDRADE Common Visit Codes: [id number] CARE 30-74 MIN TIANA ANDRADE Jun 08, 2025 14:22
--- NOTE | 2025-06-08 18:28 | DVHPNRES ---
Progress Note Date Seen: Jun 08, 2025 Resident Creating Document: WARNER SANCHEZ RESIDENT Medical Necessity Reason Pt with a Central, PICC or Fol: Yes The following are medically ne: Stevens Catheter Reason for stevens catheter: Strict I&O Subjective Review of Systems HPI Patient is a 74-year-old female with a known history of HTN, diabetes mellitus, congestive heart failure with preserved ejection fraction, coronary artery disease (CAD) s/p 3-vessel stenting in 2019 (RCA, LCx, LAD), chronic kidney disease not on dialysis yet but stage 5, hyperlipidemia, and blindness who was brought in by EMS due to worsening shortness of breath. Patient's noted that early in May patient has started to have shortness of breath following which she was admitted at [facility] for 3 days patient was given diuresis and was discharged on Lasix 40 mg b.i.d. with the patient was apparently not that compliant with the medication ended up visiting her service associate in the outpatient clinic where she was noticed to have respiratory distress and leg swelling following which she was referred to the ER where she got IV Lasix and was eventually discharged home. The service associate they reported that he was not able to do angiography as patient had poor kidney function. Since then patient was at home but had been having worsening shortness of breath transitioning from NYHA class 3 to 4 and on Thursday morning had severe shortness of breath at rest EMS were called. While at home patient was responding and verbal. Able to the ER patient had severe shortness of breath and was not able to respond verbally and after few minutes while in the bed coded and underwent cardiac pulmonary arrest following which CPR was started and after 1 dose of epinephrine and 3 doses of sodium bicarbonate ROS was achieved in 6 minutes. Past medical history: Congestive heart failure (EF 55%), Coronary artery disease s/p 3-vessel stenting (2019), Chronic kidney disease, not on hemodialysis, Type 2 diabetes mellitus, Hyperlipidemia, Blindness, HTN Surgical history: PCI with stenting (RCA, LCx, LAD) in 2019 Social history: Patient lives at home with the daughter who is the cook school cafeteria and does not smoke, drink, use drugs Home medications: rocaltrol, amldodipine, aspirin, atorvastatin, carvedilol, colistazol, famotidine, furosemide, glipizide, hydralazine, noroc , mirtazapine, sitagliptin and sodium bicarb HPI On admission patient had cardiopulmonary arrest following which high quality CPR was given and draws goals achieved in 6 minutes after 1 dose of epinephrine and 3 doses of sodium bicarbonate. Initial chest x-ray showed bilateral perihilar airspace opacities representing pulmonary edema. Head CT was done which showed no intracranial hemorrhage or mass effect, mild chronic microvascular ischemic changes and bilateral orbital pthisis bulbi. Initial labs showed elevated serum creatinine and BUN with a GFR of 9. Patient was started on 80 mg b.i.d. IV Lasix. Transthoracic Echocardiogram showed moderate thickening of mitral leaflets, mobile vegetation at the base of posterior mitral leaflet extending into the mid section of the posterior mitral leaflet with diminished excursion of the actual leaflet. There appears to be underlying mitral stenosis with diminished anterior leaflet function however thickening. There appears to be stenosis and thickening of the aortic valve leaflets as well with diminished excursion. LVEF at 50% with normal RV function, [id number] mitral insufficiency and some degree were aortic stenosis was noted, moderate tricuspid regurgitation. Transesophageal echocardiogram was done which showed 2-3 mm vegetation in the inferior medial aspect of the base of the posterior mitral leaflet. It appears to be much smaller than on previously evaluated transthoracic echocardiogram. Mild concentric LVH with a LVEF 55% and normal RV function Moderate mitral annular calcifications and thickening of mitral leaflets with Severe mitral insufficiency which was much worse than noted on the TTE , aortic stenosis noted with mild aortic insufficiency which was not quantified with GIRISH and continuous wave Doppler. There is moderate tricuspid regurgitation. Minute pericardial effusion not hemodynamically significant. Review of systems 06/08 Patient seen and examined at the bedside. Has been off sedation since 06/05, now for over 72 hours and still does not have any response to voice, grimacing on painful stimulation and has a strong gag reflex . Bilateral improved lung sounds. ABG compensated. Overnight patient had maximum recorded fever of 101.7 F Overnight patient had urine output of 150 mL. patient's underwent hemodialysis yesterday with removal of 1000 mL of fluid. Patient had 2 bowel movements which were dark and stool occult blood positive. Neurology consulted and patient will undergo MRI brain. Objective vital signs Vital Sign Date Time Temp Pulse Resp B/P (MAP) Pulse Ox O2 Delivery O2 Flow Rate FiO2 06/08/25 18:00 30 06/08/25 18:00 86 06/08/25 18:00 16 99 Mechanical Ventilator+ 06/08/25 16:14 110/53 (72) 06/08/25 08:00 99.0 99.0 Total Intake and Output 06/07/25 06/07/25 06/08/25 15:00 23:00 07:00 Intake Total 401 ml 375 ml 560 ml Output Total 150 ml 103 ml Balance 401 ml 225 ml 457 ml medications Current Medications Medications Dose Ordered Sig/Rosa Route Start Time Stop Time Status Last Admin Dose Admin Midazolam HCl 50 ml @ 1 mls/hr Q24H IV 06/02/25 08:45 06/05/25 06:34 6 MLS/HR Fentanyl Citrate 250 ml @ 2.5 mls/hr Q24H IV 06/02/25 09:05 06/04/25 07:14 5 MLS/HR Pantoprazole Sodium 40 mg DAILY IV 06/03/25 10:00 06/08/25 10:53 40 MG Insulin Human Regular Q6HR SC 06/02/25 18:00 06/08/25 12:45 6 UNITS Dextrose 50 ml UD PRN IV 06/02/25 17:45 Diagnostic Test (Pha) 1 strip Q6HR 06/02/25 18:00 06/08/25 12:00 1 STRIP Vancomycin HCl 0 ml @ 0 mls/hr UD IV 06/03/25 14:30 Enteral Nutritional Formula 1,000 ml 30ML/HR GT 06/04/25 14:30 06/06/25 21:48 1,000 ML Amino Acid Protein 30 ml BID GT 06/04/25 22:00 06/08/25 10:53 30 ML Lactulose 15 ml BID PO 06/05/25 22:00 06/08/25 00:36 15 ML Furosemide 40 mg BIDD IV 06/05/25 18:00 06/08/25 04:47 40 MG Meropenem 50 ml @ 17 mls/hr DAILY IV 06/06/25 16:45 06/08/25 10:53 17 MLS/HR Hydralazine HCl 10 mg Q6HP PRN IV 06/07/25 06:00 06/07/25 06:19 10 MG Acetaminophen 650 mg Q6HP PRN GT 06/08/25 00:45 Examination neurological: Patient is off sedation and is on mechanical ventilation, good gag reflex, pupils not visualised as patient is blind, patient responds to physical stimulation with grimacing and mild limb contraction Gen - mild conjunctival pallor, no cyanosis, no clubbing, no LAD, no edema . Skin - Patients skin is warm and dry. HEENT - normocephalic, atraumatic, moist mucous membranes. Neck - no LAD, no JVD Pulmonary - B/L equal breath sounds, no significant rales, no wheezing, no stridor. cardiovascular - regular S1,S2 heard, no added sounds, systolic apical murmur heard. peripheral pulses normal radial 2+, pedal 1+. capillary refill normal <2 secs. GI - soft, nontender abdomen. Bowel sounds normoactive laboratory and microbiology Laboratory Tests 06/08/25 03:47 Test 06/08/25 03:47 Range/Units Serum Glucose 247 H 74-106 mg/dL Microbiology Date/Time Source Procedure Growth Status 06/06/25 08:45 Blood Blood Culture - Preliminary NO GROWTH AFTER 48 HOURS OF INCUBATION. Resulted 06/03/25 17:20 Nose MRSA Screen - Final Complete 06/02/25 08:54 Sputum Gram Stain - Final Complete 06/02/25 08:54 Respiratory Culture - Final Proteus mirabilis - ESBL Complete 06/02/25 08:49 Voided Urine Urine Culture - Final Complete Problem List/Assessment/Plan Problem List/Assessment/Plan Neurology Acute metabolic encephalopathy from likely hypoxic respiratory failure Cardiopulmonary arrest - patient grimacing and contracts extremity on painful stimulus, strong gag reflex - sedation turned off Respiratory Acute on chronic hypoxic respiratory failure likely from pulmonary edema Pulmonary edema likely due to mitral insufficiency/CKD Pneumonia due to Proteus mirabilis ESBL - on mechanical ventilation with a PEEP of 5, FiO2 30% - IV Lasix 40 mg b.i.d. - until 06/08 net negative fluid balance - ABG shows mixed metabolic alkalosis with respiratory alkalosis - chest x-ray shows mild congestion, small left pleural effusion similar to yesterday - sputum cultures show growth of Proteus mirabilis ESBL and patient is on meropenem Cardiovascular S/p cardiopulmonary arrest with ROSC Nabjgitj-xe-ftjiml mitral regurgitation Possible infective endocarditis Moderate aortic stenosis NSTEMI likely type 2 from demand ischemia/cardiac arrest h/o CAD s/p PCI with MORGAN - on vancomycin and meropenam - GIRISH shows [id number] mitral insufficiency, 2-3 mm vegetation in the inferior medial aspect of the base of the posterior mitral leaflet - LVEF 55% - Lasix 40 mg b.i.d. IV Nephrology MICAELA on CKD likely due to VMN CKD stage 5, not in dialysis S/p tunneled dialysis catheter insertion - BUN creatinine worsening - monitor electrolytes and kidney function - patient underwent tunneled dialysis catheter insertion on 06/06 - hemodialysis done on 06/06 and on 06/07 with a total of 1000ml fluid removed Infectious disease Possible infective endocarditis Urinary tract infection Pneumonia due to Proteus mirabilis ESBL - on vancomycin and meropenem - initial blood cultures showed no growth after 72 hours - preliminary urinary cultures show growth of less than 70145 colony-forming units - MRSA screen negative - respiratory culture showed growth of Proteus mirabilis ESBL, meropenem Endocrinology Type 2 diabetes mellitus - on tube feedings and insulin sliding scale Gastroenterology Possible upper GI bleed - dark stool noticed and stool occult blood positive - heparin stopped - monitor H&H DVT prophylaxis stopped due to stool occult blood positive PUD prophylaxis: On Protonix Tube feedings and lactulose Left IJ CVC placed on 06/02 Stevens's catheter placed on 06/02 Right subclavian tunneled dialysis catheter placed on 06/06 Goals of care discussed with the patient's daughter at bedside. Code status: Full code Critical care time excluding procedures: 82 minutes Plan discussed with Dr. Mehta Plan discussed with: Daughter, Other (ELISA Ortiz) My Orders My Orders Orders - WARNER SANCHEZ RESIDENT Procedure Category Date Status Time * Neurology Consult CONS 06/08/25 Transmitted 13:05 Brain Head Wo Contrast MRI 06/08/25 Logged 13:05 Complete Blood Count LAB 06/08/25 Transmitted 18:22 Dietary Evaluation Review Comments: 1. TF Nepro Carbsteady @ 3ml/hr x 24 hr along with Pro-stat 1 pk BID. Start @ 20ml/hr, increase 10ml/hr Q4H until goal is reached. TF at goal volume provides 100% energy & protein needs - 1496 kcal, 89gm protein, 523 ml free water 2. Water flush 240ml Q6H if allowed, adjust PRN 3. TPN if NPO > 7 days 4.Monitor NPO status, lab values, wt trends, I/O Expected Outcomes/Goals: To meet >75% estimated needs Lab values to improve Fu 2-3 days Date of Service: Jun 08, 2025 Billing Provider: JEREMIAS MEHTA MD Common Visit Codes: 09565-[id number] CARE 30-74 MIN, [id number] CARE-EACH +30MIN WARNER SANCHEZ RESIDENT Jun 08, 2025 18:28 JEREMIAS MEHTA MD Jun 10, 2025 12:30
--- NOTE | 2025-06-08 18:33 | DVHINCON2 ---
Date of service: Jun 08, [address] Cortés Reason for Consultation CPR, status post ROSC after 5 minutes, off sedation for three days, nonresponsive to voice History of Present Illness Ms. Miller is a 74 years old right-handed female with a history of hypertension, diabetes, coronary artery disease, heart attack, congestive heart failure, chronic kidney failure, bilateral eye blindness, she was brought to the [facility] on 06/02/2025 with a chief company of shortness breath. At this time, she is intubated, not on sedation, responsive to light painful stimuli, the history is obtained from her grandson, who is a family practitioner in training Apparently, the patient came to the [facility] for shortness breath, with pulse ox down to 81% on room air. In the emergency room, she coded for 6 minutes. With appropriate treatment, the patient has been stabilized, and the sedation has been weaned off for three days (06/05/25), but the patient is not waking up as expected Code blue note, code started: 06/02/2025 0813. Code ended: 06/02/2025 0819 Blood culture, 06/06/2025: Blood culture, 06/02/2025: No glucose Urinalysis, 06/02/2025: WBC: 92, urine leukocyte esterase: 2+, urine WBC clumps: Present UDS, 06/04/2025: Negative WBC/HB/PLT/MCV, 06/08/2025: 10.5/9.7/299/90.1 BUN/CR, 06/08/2025: 58/3.17 HGB A1c, 06/03/2025: 3.8 Lactic acid, 06/02/2025: 4.7, 2.1 TG/HDL/LDL/HDL, 06/03/2025: 99/1 5/49/34 GIRISH 06/04/2025: There appears to be a 2-3 mm vegetation in the inferior medial aspect of the base of the posterior mitral leaflet. It appears to be much smaller than on previously evaluated transthoracic echocardiogram. CT head, 06/02/2025: No intracranial hemorrhage or mass effect. Mild chronic microvascular ischemic changes. Bilateral orbital phthisis bulbi. Past Medical History Hypertension, Diabetes, coronary artery disease, heart attack, congestive heart failure, chronic kidney failure, anemia, bilateral eye blindness Past Surgical History PTCA Family History: FH: congestive heart failure G8 MOTHER Family History No major medical problems Social History She is not a tobacco smoker, no history of drug/alcohol abuse Allergies: Coded Allergies: NO KNOWN ALLERGIES (Unverified , 08/26/19) Home Meds Active Scripts Cefdinir (Cefdinir) 300 Mg Cap, 1 CAP PO BID for 5 Days, #10 CAP Prov:JEREMIAS JORDAN MD 03/28/25 Reported Medications Multiple Vitamins W/ Minerals (Multivitamin) 1 Tab Tab, 1 TAB PO DAILY, TAB 03/27/25 Aspirin (Aspirin) 81 Mg Chw, 81 MG PO DAILY, TAB.CHEW 03/27/25 Famotidine (Acid Shearing Supervisor) 10 Mg Tab, 10 MG PO DAILY 03/27/25 Furosemide (Furosemide) 20 Mg Tab, 1 TAB PO BID 03/27/25 Hydralazine HCl (Hydralazine HCl) 25 Mg Tab, 1 TAB PO TID 03/27/25 1, 25 Dihydroxycholecalciferol (ROCALTROL CAPSULE) 0.25 Mcg Cp, 1 CAP PO DAILY 03/27/25 Hydrocodone-Acetaminophen (Hydrocodone/Acetaminophen 5-325 mg) 1 Tab Tab, 1 TAB PO BIDPRN PRN 03/27/25 Mirtazapine (Mirtazapine Oral Disintegrating Tablet) 15 Mg Tab, 1 TAB PO DAILY 03/27/25 Carvedilol (Carvedilol) 12.5 Mg Tab, 1 TAB PO BID 03/27/25 Sitagliptin (Sitagliptin) 25 Mg Tab, 1 TAB PO DAILY 03/27/25 Amlodipine Besylate (Amlodipine Besylate) 5 Mg Tab, 1 TAB PO DAILY 03/27/25 Sodium Bicarbonate (Sodium Bicarbonate) 650 Mg Tab, 3 TAB PO TID 03/27/25 Glipizide (Glipizide) 5 Mg Tab, 5 MG PO BID for 30 Days, MG 08/26/19 Atorvastatin Calcium (ATORVASTATIN CALCIUM) 40 Mg Tab, 40 MG PO DAILY, TAB 08/26/19 Cilostazol (Cilostazol) 100 Mg Tab, 100 MG PO BID for 30 Days, MG 08/26/19 Current Medications Current Medications Medications (Trade) Dose Ordered Sig/Rosa Route PRN Reason Start Time Stop Time Status Last Admin Acetaminophen (Tylenol Solution Oral) 650 mg Q6HP PRN GT PAIN SCALE 1-3 OR TEMP>100.4 06/08/25 00:45 Review of Systems As above, the other systems are negative Vital Signs Vital Signs Date Time Temp Pulse Resp B/P (MAP) Pulse Ox O2 Delivery O2 Flow Rate FiO2 06/08/25 18:00 30 06/08/25 18:00 86 06/08/25 18:00 16 99 Mechanical Ventilator+ 06/08/25 16:14 110/53 (72) 06/08/25 08:00 99.0 99.0 Physical Exam The patient is well-nourished and well-developed with no distress. The patient is intubated HEENT: Normocephalic, neck supple, no carotid bruits Lungs: Clear to auscultation Cardiovascular: Regular rate and region, S1, S2, no murmurs Abdomen: Soft, nontender, normal bowel sounds MENTAL STATUS: Responsive to light painful stimuli CRANIAL NERVES: Eyes are cloudy.There are corneal reflexes and doll's eyes phenomenon. No signs of facial weakness. There are gagging or coughing reflexes SENSATION: No responses to pain stimuli. MOTOR: Normal tone in the upper and lower extremity. Normal muscle bulk. No fasciculations. No spontaneous movement. REFLEXES: Deep tendon reflexes are symmetrical. No pathological reflexes. CEREBELLAR/COORDINATION: Deferred GAIT/STATION: deferred. Labs/Diagnostic Data Labs Test 06/08/25 17:35 06/08/25 07:15 06/08/25 03:47 06/07/25 06:45 Range/Units POC Glucose 253 H 70-106 mg/dl Blood Gas Specimen Type Arterial Blood Gas Sample Site Right radial Blood Gas Patient Temperature 37.0 Arterial Blood Date Drawn [id number] Arterial Blood pH 7.427 7.350-7.450 Arterial Blood Partial Pressure CO2 41.8 32.0-45.0 mmHg Arterial Blood Partial Pressure O2 87.9 83.0-108.0 mmHg Arterial Blood HCO3 26.9 21.0-28.0 mmol/L Arterial Blood Oxygen Saturation 95.7 94.0-98.0 % Arterial Blood Base Excess 2.4 -2.0-3.0 mmol/L Arterial Blood Oxyhemoglobin 94.7 94.0-98.0 % Arterial Blood Carboxyhemoglobin 0.7 0.5-1.5 % Arterial Blood Methemoglobin 0.3 0.0-1.5 % Dagoberto Test Modified Blood Gas Total Hemoglobin 9.00 L 12.0-16.0 g/dL Blood Gas Set Respiration Rate 16.0 Blood Gas Modality Vent - ac FiO2 % 30.0 Blood Gas Tidal Volume 400.0 Blood Gas PEEP or CPAP 5.0 White Blood Count 10.5 4.4-10.8 10^3/uL Red Blood Count 3.20 L 4.0-5.20 10^6/uL Hemoglobin 9.7 L 12.2-16.2 g/dL Hematocrit 28.8 L 36.0-46.0 % Mean Corpuscular Volume 90.1 80.0-100.0 fL Mean Corpuscular Hemoglobin 30.2 28.0-32.0 pg Mean Corpuscular Hemoglobin Concent 33.5 32.0-36.0 g/dL Red Cell Distribution Width 18.9 H 11.8-14.3 % Platelet Count 299 140-450 10^3/uL Mean Platelet Volume 8.6 6.9-10.8 fL Neutrophils (%) (Auto) 79.0 37.0-80.0 % Lymphocytes (%) (Auto) 9.4 L 10.0-50.0 % Monocytes (%) (Auto) 9.8 0.0-12.0 % Eosinophils (%) (Auto) 1.0 0.0-7.0 % Basophils (%) (Auto) 0.8 0.0-2.0 % Neutrophils # (Auto) 8.3 1.6-8.6 10 ^3/uL Lymphocytes # (Auto) 1.0 0.4-5.4 10 ^3/uL Monocytes # (Auto) 1.0 0-1.3 10 ^3/uL Eosinophils # (Auto) 0.1 0-0.8 10 ^3/uL Basophils # (Auto) 0.1 0-0.2 10 ^3/uL Nucleated Red Blood Cells 0.1 % Sodium Level 141 136-145 mmol/L Potassium Level 3.6 3.5-5.1 mmol/L Chloride Level 100 98-107 mmol/L Carbon Dioxide Level 30 20-31 mmol/L Anion Gap 11 5-15 Blood Urea Nitrogen 58 #H 9-23 mg/dL Creatinine 3.17 H 0.550-1.02 mg/dL Glomerular Filtration Rate Calc 15 >90 mL/min BUN/Creatinine Ratio 18.3 10.0-20.0 Serum Glucose 247 H 74-106 mg/dL Calcium Level 9.9 8.7-10.4 mg/dL Random Vancomycin Level 13.0 H 5-10 ug/mL Stool Occult Blood Pos x1 Negative Stool Occult Blood Sample #3 Negative Test 06/07/25 02:58 06/05/25 12:57 06/04/25 02:45 06/03/25 14:09 Range/Units Magnesium Level 2.3 1.6-2.6 mg/dL Rheumatoid Factor 15.4 H <14.0 IU/mL Hepatitis B Surface Antigen Negative Negative D-Dimer, Quantitative 7.19 H 0.0-0.49 mg/L FEU Test 06/03/25 02:50 06/02/25 19:57 06/02/25 18:18 06/02/25 10:54 Range/Units Prothrombin Time 11.5 9.3-11.8 sec Prothrombin Time INR 1.09 0.9-1.15 Activated Partial Thromboplast Time 27.4 24.5-34.5 SEC Hemoglobin A1c < 3.8 <5.7 % A1C Phosphorus Level 5.1 2.4-5.1 mg/dL Total Bilirubin 0.6 0.2-1.0 mg/dL Aspartate Amino Transferase (AST) 90 H 13-40 U/L Alanine Aminotransferase (ALT) 114 H 7-40 U/L Alkaline Phosphatase 60 46-116 U/L B-Type Natriuretic Peptide 444.26 0-100 pg/mL Total Protein 6.0 5.7-8.2 g/dL Albumin 3.4 3.2-4.8 g/dL Triglycerides Level 99 < 150 mg/dL Cholesterol Level 105 < 200 mg/dL LDL Cholesterol 49 < 100 mg/dL HDL Cholesterol 34 L 40-59 mg/dL Thyroid Stimulating Hormone (TSH) 0.66 0.55-4.78 uIU/mL Troponin I High Sensitivity 101 *H </=34 ng/L Influenza Type A Antigen Negative Negative Influenza Type B Antigen Negative Negative SARS-CoV-2 Antigen (Rapid) Negative NEGATIVE Lactic Acid Level 2.1 *H 0.4-2.0 mmol/L Test 06/02/25 08:49 Range/Units Urine Color Light-yellow Yellow Urine Clarity Turbid H Clear Urine pH 5.5 5.0-9.0 Urine Specific [place] 1.011 1.001-1.035 Urine Protein 1+ H Negative Urine Ketones Negative Negative Urine Blood Trace H Negative /uL Urine Nitrite Negative Negative Urine Bilirubin Negative Negative Urine Urobilinogen Normal Negative mg/dL Urine Leukocyte Esterase 2+ Negative /uL Urine RBC 5 0 - 4 /hpf Urine WBC Clumps Present None Seen /hpf Urine Microscopic WBC 92 H 0-5 /HPF Urine Squamous Epithelial Cells Few <5 /hpf Urine Bacteria Few H None Seen /hpf Urine Mucus Few None Seen Urine Glucose 2+ H Normal mg/dL Urine Opiates Screen Neg NEGATIVE Urine Fentanyl Screen Neg NEGATIVE Urine Barbiturates Screen Neg NEGATIVE Urine Phencyclidine Screen Neg NEGATIVE Urine Amphetamines Screen Neg NEGATIVE Urine Benzodiazepines Screen Neg NEGATIVE Urine Cocaine Screen Neg NEGATIVE Urine Cannabinoids Screen Neg NEGATIVE Microbiology Date/Time Source Procedure Growth Status 06/06/25 08:45 Blood Blood Culture - Preliminary NO GROWTH AFTER 48 HOURS OF INCUBATION. Resulted 06/03/25 17:20 Nose MRSA Screen - Final Complete 06/02/25 08:54 Sputum Gram Stain - Final Complete 06/02/25 08:54 Respiratory Culture - Final Proteus mirabilis - ESBL Complete 06/02/25 08:49 Voided Urine Urine Culture - Final Complete Assessment Coma Hypoxic encephalopathy Metabolic encephalopathy Toxic encephalopathy Status post CPR Cardiopulmonary arrest Urinary tract infection Sepsis Chronic kidney failure Possible endocarditis Plan/Recommendation Monitoring Supportive treatment ICU care Follow up blood culture Follow up routine lab EEG MR brain scan Stabilize vitals Respiratory support/vent management Oxygen IV antibiotics More recommendation per clinical course Progress: Guarded Critical care time spent is 45 minutes This medical document was created using an electronic medical record system with [employer] dictation system. Although this document has been carefully reviewed, there may still be some phonetic and typographical errors. These areas are purely typographical due to imperfections of the software programs, and do not reflect any compromise in the patient's medical care. Plan discussed with: Son, Other JAYNE LUX MD Jun 08, 2025 18:33
[2025-06-08 18:59] LABS: Hematocrit 25.4 % (36.0-46.0); Hemoglobin 8.6 g/dL (12.2-16.2); Mean Corpuscular Hemoglobin 30.3 pg (28.0-32.0); Mean Corpuscular Volume 89.9 fL (80.0-100.0); Nucleated Red Blood Cells % 0.0 %
[2025-06-08] MEDS: ACETAMINOPHEN 650 mg PER 20.3 mL UD GT PRN (19:21)
--- NOTE | 2025-06-08 21:44 | DVHPN2 ---
Progress Note Date Seen: Jun 08, 2025 Medical Necessity Reason Pt with a Central, PICC or Fol: Yes The following are medically ne: Stevens Catheter Reason for stevens catheter: Strict I&O Subjective Patient reports: Other (intubated) Review of Systems: Deferred Objective vital signs Vital Sign Date Time Temp Pulse Resp B/P (MAP) Pulse Ox O2 Delivery O2 Flow Rate FiO2 06/08/25 20:33 88 16 96/51 (66) 99 30 06/08/25 19:21 100.4 06/08/25 18:00 Mechanical Ventilator+ Total Intake and Output 06/07/25 06/07/25 06/08/25 15:00 23:00 07:00 Intake Total 401 ml 375 ml 560 ml Output Total 150 ml 103 ml Balance 401 ml 225 ml 457 ml medications Current Medications Medications Dose Ordered Sig/Rosa Route Start Time Stop Time Status Last Admin Dose Admin Midazolam HCl 50 ml @ 1 mls/hr Q24H IV 06/02/25 08:45 06/05/25 06:34 6 MLS/HR Fentanyl Citrate 250 ml @ 2.5 mls/hr Q24H IV 06/02/25 09:05 06/04/25 07:14 5 MLS/HR Pantoprazole Sodium 40 mg DAILY IV 06/03/25 10:00 06/08/25 10:53 40 MG Insulin Human Regular Q6HR SC 06/02/25 18:00 06/08/25 17:38 6 UNITS Dextrose 50 ml UD PRN IV 06/02/25 17:45 Diagnostic Test (Pha) 1 strip Q6HR 06/02/25 18:00 06/08/25 17:36 1 STRIP Vancomycin HCl 0 ml @ 0 mls/hr UD IV 06/03/25 14:30 Enteral Nutritional Formula 1,000 ml 30ML/HR GT 06/04/25 14:30 06/06/25 21:48 1,000 ML Amino Acid Protein 30 ml BID GT 06/04/25 22:00 06/08/25 10:53 30 ML Lactulose 15 ml BID PO 06/05/25 22:00 06/08/25 00:36 15 ML Furosemide 40 mg BIDD IV 06/05/25 18:00 06/08/25 18:30 40 MG Meropenem 50 ml @ 17 mls/hr DAILY IV 06/06/25 16:45 06/08/25 10:53 17 MLS/HR Hydralazine HCl 10 mg Q6HP PRN IV 06/07/25 06:00 06/07/25 06:19 10 MG Acetaminophen 650 mg Q6HP PRN GT 06/08/25 00:45 06/08/25 19:21 650 MG Examination: GENERAL:Abnormal, LUNGS:Abnormal laboratory and microbiology Laboratory Tests 06/08/25 18:30 06/08/25 03:47 Test 06/08/25 03:47 Range/Units Serum Glucose 247 H 74-106 mg/dL Microbiology Date/Time Source Procedure Growth Status 06/06/25 08:45 Blood Blood Culture - Preliminary NO GROWTH AFTER 48 HOURS OF INCUBATION. Resulted 06/03/25 17:20 Nose MRSA Screen - Final Complete 06/02/25 08:54 Sputum Gram Stain - Final Complete 06/02/25 08:54 Respiratory Culture - Final Proteus mirabilis - ESBL Complete 06/02/25 08:49 Voided Urine Urine Culture - Final Complete Problem List/Assessment/Plan Problem List/Assessment/Plan 1) Hemodynamically mediated acute kidney injury in the setting of hypotension, status post cardiac arrest and resuscitation--needing HD now 2) CKD stage five not on dialysis previosuly --being followed in [place]/Chronic kidney disease five status for more than one year 3) coronary artery disease 4) status post cardiac arrest 5) diabetes Acute hypoxic respiratory failure ventilator-dependent Legally blind Recommendations HD 06/09 Not on any pressors today--not waking up Currently sedation off s/p IR guided tunneled cath plan for [place] transfer noted Plan discussed with: Daughter, Other Dietary Evaluation Review Comments: 1. TF Nepro Carbsteady @ 3ml/hr x 24 hr along with Pro-stat 1 pk BID. Start @ 20ml/hr, increase 10ml/hr Q4H until goal is reached. TF at goal volume provides 100% energy & protein needs - 1496 kcal, 89gm protein, 523 ml free water 2. Water flush 240ml Q6H if allowed, adjust PRN 3. TPN if NPO > 7 days 4.Monitor NPO status, lab values, wt trends, I/O Expected Outcomes/Goals: To meet >75% estimated needs Lab values to improve Fu 2-3 days Critical Care Time (mins): 36 HUGO LEE MD Jun 08, 2025 21:44
[2025-06-09] VITALS (108 sets, daily range): BP systolic 90–155; BP diastolic 47–86; PULSE 74–98; RESP 10–36; TEMP 97.9–99.3; O2SAT 98–100
[2025-06-09 04:03] LABS: Hematocrit 29.9 % (36.0-46.0); Hemoglobin 9.8 g/dL (12.2-16.2); Mean Corpuscular Hemoglobin 29.5 pg (28.0-32.0); Mean Corpuscular Volume 89.7 fL (80.0-100.0); Nucleated Red Blood Cells % 0.1 %
[2025-06-09 04:23] LABS: Albumin 3.6 g/dL (3.2-4.8); Anion Gap 14 (5-15); BUN/Creatinine Ratio 17.4 (10.0-20.0); Carbon Dioxide 26 mmol/L (20-31); Chloride 99 mmol/L (98-107); Potassium 3.6 mmol/L (3.5-5.1); Sodium 139 mmol/L (136-145); Total Protein 6.8 g/dL (5.7-8.2)
[2025-06-09 04:35] LABS: Glucose 196 mg/dL (74-106)
[2025-06-09 04:36] LABS: Alanine Aminotransferase 50 U/L (7-40); Alkaline Phosphatase 193 U/L (46-116); Bilirubin, Total 0.3 mg/dL (0.2-1.0); Calcium 10.7 mg/dL (8.7-10.4)
[2025-06-09 04:37] LABS: Blood Urea Nitrogen 88 mg/dL (9-23)
--- NOTE | 2025-06-09 05:38 | DVH ---
CHEST RADIOGRAPH Indication: on vent, Technique: Single frontal view of the chest was obtained COMPARISON: XY CHEST XRAY 1 VIEW on DOS: 06/08/25, XY CHEST XRAY 1 VIEW on DOS: 06/07/25, XY CHEST XRAY 1 VIEW on DOS: 06/06/25, XY CHEST XRAY 1 VIEW on DOS: 06/05/25, XY CHEST XRAY 1 VIEW on DOS: 06/03/25 FINDINGS: Lines and Tubes: Unchanged. Lungs: Stable moderate diffuse increased prominence of the pulmonary vasculature and small left pleur al effusion. No pneumothorax. Cardiomediastinal contours: Cardiomegaly Bones: Unremarkable IMPRESSION: 1. Stable cardiomegaly, Moderate diffuse increased prominence of the pulmonary vasculature and small left pleural effusion. 2. Lines and tubes unchanged.
[2025-06-09 08:32] LABS: Base Excess 1.5 mmol/L (-2.0-3.0)
--- NOTE | 2025-06-09 13:53 | DVHPN2 ---
Progress Note - Dictate Date Seen: Jun 09, 2025 Medical Necessity Reason Pt with a Central, PICC or Fol: Yes The following are medically ne: Stevens Catheter Reason for stevens catheter: Strict I&O Subjective Patient's family at bedside vital signs Vital Sign Date Time Temp Pulse Resp B/P (MAP) Pulse Ox O2 Delivery O2 Flow Rate FiO2 06/09/25 11:43 88 17 141/54 (83) 100 30 06/09/25 08:00 Mechanical Ventilator+ 06/09/25 04:00 98.8 98.8 Total Intake and Output 06/08/25 06/08/25 06/09/25 15:00 23:00 07:00 Intake Total 150 ml 480 ml 200 ml Output Total 92 ml 177 ml Balance 150 ml 388 ml 23 ml medications Current Medications Medications Dose Ordered Sig/Rosa Route Start Time Stop Time Status Last Admin Dose Admin Midazolam HCl 50 ml @ 1 mls/hr Q24H IV 06/02/25 08:45 06/05/25 06:34 6 MLS/HR Fentanyl Citrate 250 ml @ 2.5 mls/hr Q24H IV 06/02/25 09:05 06/04/25 07:14 5 MLS/HR Pantoprazole Sodium 40 mg DAILY IV 06/03/25 10:00 06/09/25 10:12 40 MG Insulin Human Regular Q6HR SC 06/02/25 18:00 06/09/25 12:01 6 UNITS Dextrose 50 ml UD PRN IV 06/02/25 17:45 Diagnostic Test (Pha) 1 strip Q6HR 06/02/25 18:00 06/09/25 12:00 1 STRIP Vancomycin HCl 0 ml @ 0 mls/hr UD IV 06/03/25 14:30 Enteral Nutritional Formula 1,000 ml 30ML/HR GT 06/04/25 14:30 06/09/25 08:41 1,000 ML Amino Acid Protein 30 ml BID GT 06/04/25 22:00 06/09/25 10:13 30 ML Lactulose 15 ml BID PO 06/05/25 22:00 06/08/25 00:36 15 ML Furosemide 40 mg BIDD IV 06/05/25 18:00 06/09/25 06:14 40 MG Meropenem 50 ml @ 17 mls/hr DAILY IV 06/06/25 16:45 06/09/25 10:12 17 MLS/HR Hydralazine HCl 10 mg Q6HP PRN IV 06/07/25 06:00 06/07/25 06:19 10 MG Acetaminophen 650 mg Q6HP PRN GT 06/08/25 00:45 06/08/25 19:21 650 MG objective Gen: nad, sedated and intubated lungs: Occasional rhonchi cvs: no rub abd: soft, bowel sounds audible ext: no edema laboratory and microbiology Laboratory Tests 06/09/25 03:05 Test 06/09/25 03:05 Range/Units Serum Glucose 196 H 74-106 mg/dL Assessment/Plan IMP: 1) Hemodynamically mediated acute kidney injury in the setting of hypotension, status post cardiac arrest 2) CKD stage five / ESRD, initiated on dialysis 3) coronary artery disease 4) status post cardiac arrest 5) diabetes REC: - daily evaluation for kidney replacement therapy - next dialysis tentatively June 10 - discussed plan of care with patient's daughters and son-in-law bedside Dietary Evaluation Review Comments: 1. TF Nepro Carbsteady @ 3ml/hr x 24 hr along with Pro-stat 1 pk BID. Start @ 20ml/hr, increase 10ml/hr Q4H until goal is reached. TF at goal volume provides 100% energy & protein needs - 1496 kcal, 89gm protein, 523 ml free water 2. Water flush 240ml Q6H if allowed, adjust PRN 3. TPN if NPO > 7 days 4.Monitor NPO status, lab values, wt trends, I/O Expected Outcomes/Goals: To meet >75% estimated needs Lab values to improve Fu 2-3 days Plan discussed with: Daughter JADE MIRELES MD Jun 09, 2025 13:53
--- NOTE | 2025-06-09 15:07 | DVHPNRES ---
Progress Note Date Seen: Jun 09, 2025 Resident Creating Document: WARNER SANCHEZ RESIDENT Medical Necessity Reason Pt with a Central, PICC or Fol: Yes The following are medically ne: Stevens Catheter Reason for stevens catheter: Strict I&O Subjective Review of Systems HPI Patient is a 74-year-old female with a known history of HTN, diabetes mellitus, congestive heart failure with preserved ejection fraction, coronary artery disease (CAD) s/p 3-vessel stenting in 2019 (RCA, LCx, LAD), chronic kidney disease not on dialysis yet but stage 5, hyperlipidemia, and blindness who was brought in by EMS due to worsening shortness of breath. Patient's noted that early in May patient has started to have shortness of breath following which she was admitted at [facility] for 3 days patient was given diuresis and was discharged on Lasix 40 mg b.i.d. with the patient was apparently not that compliant with the medication ended up visiting her creative art therapist in the outpatient clinic where she was noticed to have respiratory distress and leg swelling following which she was referred to the ER where she got IV Lasix and was eventually discharged home. The creative art therapist they reported that he was not able to do angiography as patient had poor kidney function. Since then patient was at home but had been having worsening shortness of breath transitioning from NYHA class 3 to 4 and on Thursday morning had severe shortness of breath at rest EMS were called. While at home patient was responding and verbal. Able to the ER patient had severe shortness of breath and was not able to respond verbally and after few minutes while in the bed coded and underwent cardiac pulmonary arrest following which CPR was started and after 1 dose of epinephrine and 3 doses of sodium bicarbonate ROS was achieved in 6 minutes. Past medical history: Congestive heart failure (EF 55%), Coronary artery disease s/p 3-vessel stenting (2019), Chronic kidney disease, not on hemodialysis, Type 2 diabetes mellitus, Hyperlipidemia, Blindness, HTN Surgical history: PCI with stenting (RCA, LCx, LAD) in 2019 Social history: Patient lives at home with the daughter who is the spotter driver and does not smoke, drink, use drugs Home medications: rocaltrol, amldodipine, aspirin, atorvastatin, carvedilol, colistazol, famotidine, furosemide, glipizide, hydralazine, noroc , mirtazapine, sitagliptin and sodium bicarb HPI On admission patient had cardiopulmonary arrest following which high quality CPR was given and draws goals achieved in 6 minutes after 1 dose of epinephrine and 3 doses of sodium bicarbonate. Initial chest x-ray showed bilateral perihilar airspace opacities representing pulmonary edema. Head CT was done which showed no intracranial hemorrhage or mass effect, mild chronic microvascular ischemic changes and bilateral orbital pthisis bulbi. Initial labs showed elevated serum creatinine and BUN with a GFR of 9. Patient was started on 80 mg b.i.d. IV Lasix. Transthoracic Echocardiogram showed moderate thickening of mitral leaflets, mobile vegetation at the base of posterior mitral leaflet extending into the mid section of the posterior mitral leaflet with diminished excursion of the actual leaflet. There appears to be underlying mitral stenosis with diminished anterior leaflet function however thickening. There appears to be stenosis and thickening of the aortic valve leaflets as well with diminished excursion. LVEF at 50% with normal RV function, anysfeoq-pz-yhwyos mitral insufficiency and some degree were aortic stenosis was noted, moderate tricuspid regurgitation. Transesophageal echocardiogram was done which showed 2-3 mm vegetation in the inferior medial aspect of the base of the posterior mitral leaflet. It appears to be much smaller than on previously evaluated transthoracic echocardiogram. Mild concentric LVH with a LVEF 55% and normal RV function Moderate mitral annular calcifications and thickening of mitral leaflets with Severe mitral insufficiency which was much worse than noted on the TTE , aortic stenosis noted with mild aortic insufficiency which was not quantified with GIRISH and continuous wave Doppler. There is moderate tricuspid regurgitation. Minute pericardial effusion not hemodynamically significant. Review of systems 06/09 Patient seen and examined at the bedside. Has been off sedation since 06/05, now for over 96 hours and patient is responding to voice commands, and has a strong gag reflex . Bilateral improved lung sounds. ABG reviewed. Overnight patient had maximum recorded fever of 100.4 F Over the last 24 hrs patient had urine output of 270 mL. patient's underwent hemodialysis on thursday with removal of 1000 mL of fluid. Patient had 2 bowel movements which were dark , H&H is stable. Neurology recommended that patient does not need MRI as she is responsive. Objective vital signs Vital Sign Date Time Temp Pulse Resp B/P (MAP) Pulse Ox O2 Delivery O2 Flow Rate FiO2 06/09/25 14:20 81 19 97/50 (66) 98 30 06/09/25 08:00 Mechanical Ventilator+ 06/09/25 04:00 98.8 98.8 Total Intake and Output 06/08/25 06/08/25 06/09/25 15:00 23:00 07:00 Intake Total 150 ml 480 ml 200 ml Output Total 92 ml 177 ml Balance 150 ml 388 ml 23 ml medications Current Medications Medications Dose Ordered Sig/Rosa Route Start Time Stop Time Status Last Admin Dose Admin Midazolam HCl 50 ml @ 1 mls/hr Q24H IV 06/02/25 08:45 06/05/25 06:34 6 MLS/HR Fentanyl Citrate 250 ml @ 2.5 mls/hr Q24H IV 06/02/25 09:05 06/04/25 07:14 5 MLS/HR Pantoprazole Sodium 40 mg DAILY IV 06/03/25 10:00 06/09/25 10:12 40 MG Insulin Human Regular Q6HR SC 06/02/25 18:00 06/09/25 12:01 6 UNITS Dextrose 50 ml UD PRN IV 06/02/25 17:45 Diagnostic Test (Pha) 1 strip Q6HR 06/02/25 18:00 06/09/25 12:00 1 STRIP Vancomycin HCl 0 ml @ 0 mls/hr UD IV 06/03/25 14:30 Enteral Nutritional Formula 1,000 ml 30ML/HR GT 06/04/25 14:30 06/09/25 08:41 1,000 ML Amino Acid Protein 30 ml BID GT 06/04/25 22:00 06/09/25 10:13 30 ML Lactulose 15 ml BID PO 06/05/25 22:00 06/08/25 00:36 15 ML Furosemide 40 mg BIDD IV 06/05/25 18:00 06/09/25 06:14 40 MG Meropenem 50 ml @ 17 mls/hr DAILY IV 06/06/25 16:45 06/09/25 10:12 17 MLS/HR Hydralazine HCl 10 mg Q6HP PRN IV 06/07/25 06:00 06/07/25 06:19 10 MG Acetaminophen 650 mg Q6HP PRN GT 06/08/25 00:45 06/08/25 19:21 650 MG Examination neurological: Patient is off sedation and is on mechanical ventilation, good gag reflex, pupils not visualised as patient is blind, patient responds to physical stimulation with grimacing and mild limb contraction Gen - mild conjunctival pallor, no cyanosis, no clubbing, no LAD, no edema . Skin - Patients skin is warm and dry. HEENT - normocephalic, atraumatic, moist mucous membranes. Neck - no LAD, no JVD Pulmonary - B/L equal breath sounds, no significant rales, no wheezing, no stridor. cardiovascular - regular S1,S2 heard, no added sounds, systolic apical murmur heard. peripheral pulses normal radial 2+, pedal 1+. capillary refill normal <2 secs. GI - soft, nontender abdomen. Bowel sounds normoactive laboratory and microbiology Laboratory Tests 06/09/25 03:05 Test 06/09/25 03:05 Range/Units Serum Glucose 196 H 74-106 mg/dL Microbiology Date/Time Source Procedure Growth Status 06/06/25 08:45 Blood Blood Culture - Preliminary NO GROWTH AFTER 72 HOURS OF INCUBATION. Resulted 06/03/25 17:20 Nose MRSA Screen - Final Complete 06/02/25 08:54 Sputum Gram Stain - Final Complete 06/02/25 08:54 Respiratory Culture - Final Proteus mirabilis - ESBL Complete 06/02/25 08:49 Voided Urine Urine Culture - Final Complete Problem List/Assessment/Plan Problem List/Assessment/Plan Neurology Acute metabolic encephalopathy from likely hypoxic respiratory failure Cardiopulmonary arrest - patient responding to voice commands, strong gag reflex - sedation turned off Respiratory Acute on chronic hypoxic respiratory failure likely from pulmonary edema Pulmonary edema likely due to mitral insufficiency/CKD Pneumonia due to Proteus mirabilis ESBL - on mechanical ventilation with a PEEP of 5, FiO2 30% - IV Lasix 40 mg b.i.d. - until 06/08 net negative fluid balance - ABG shows mixed metabolic alkalosis with respiratory alkalosis - chest x-ray shows mild congestion, small left pleural effusion similar to yesterday - sputum cultures show growth of Proteus mirabilis ESBL and patient is on meropenem Cardiovascular S/p cardiopulmonary arrest with ROSC Tsruxyie-oh-zckaaw mitral regurgitation Possible infective endocarditis Moderate aortic stenosis NSTEMI likely type 2 from demand ischemia/cardiac arrest h/o CAD s/p PCI with MORGAN - on vancomycin and meropenam - GIRISH shows [id number] mitral insufficiency, 2-3 mm vegetation in the inferior medial aspect of the base of the posterior mitral leaflet - LVEF 55% - Lasix 40 mg b.i.d. IV Nephrology MICAELA on CKD likely due to VMN CKD stage 5, not in dialysis S/p tunneled dialysis catheter insertion - BUN creatinine worsening - monitor electrolytes and kidney function - patient underwent tunneled dialysis catheter insertion on 06/06 - hemodialysis done on 06/06 and on 06/07 with a total of 1000ml fluid removed Infectious disease Possible infective endocarditis Urinary tract infection Pneumonia due to Proteus mirabilis ESBL - on vancomycin and meropenem - initial blood cultures showed no growth after 72 hours - preliminary urinary cultures show growth of less than 09049 colony-forming units - MRSA screen negative - respiratory culture showed growth of Proteus mirabilis ESBL, meropenem Endocrinology Type 2 diabetes mellitus - on tube feedings and insulin sliding scale Gastroenterology Possible upper GI bleed - dark stool noticed and stool occult blood positive - heparin stopped - monitor H&H DVT prophylaxis stopped due to stool occult blood positive PUD prophylaxis: On Protonix Tube feedings and lactulose right midline placed on 06/09 Stevens's catheter placed on 06/02 Right subclavian tunneled dialysis catheter placed on 06/06 Goals of care discussed with the patient's daughter at bedside. Code status: Full code Critical care time excluding procedures: 52 minutes Plan discussed with Dr. Rodas. Patient is more responsive and will not need an MRI as per neurology. we will continue close monitoring. as per nephrology, dialysis held today. Plan discussed with: Spouse, Other (Grandson, ELISA Ortiz) My Orders My Orders Orders - WARNER SANCHEZ RESIDENT Procedure Category Date Status Time Chest Xray 1 View XY 06/09/25 Resulted 04:00 Imaging Transfer ORDERS 06/08/25 Transmitted Request 21:26 Abg W/ Co-Ox RT 06/09/25 Logged 06:00 Insert Midline ORDERS 06/09/25 Transmitted 10:07 Basic Metabolic Panel LAB 06/10/25 Verified 04:00 Chest Xray 1 View XY 06/10/25 Logged 04:00 Dietary Evaluation Review Comments: 1. TF Nepro Carbsteady @ 3ml/hr x 24 hr along with Pro-stat 1 pk BID. Start @ 20ml/hr, increase 10ml/hr Q4H until goal is reached. TF at goal volume provides 100% energy & protein needs - 1496 kcal, 89gm protein, 523 ml free water 2. Water flush 240ml Q6H if allowed, adjust PRN 3. TPN if NPO > 7 days 4.Monitor NPO status, lab values, wt trends, I/O Expected Outcomes/Goals: To meet >75% estimated needs Lab values to improve Fu 2-3 days WARNER SANCHEZ RESIDENT Jun 09, 2025 15:07
--- NOTE | 2025-06-09 15:26 | DVHPN2 ---
Consult Progress Note Subjective Other Systems: Patient in normal sinus rhythm on gambling monitor Objective vital signs Vital Sign Date Time Temp Pulse Resp B/P (MAP) Pulse Ox O2 Delivery O2 Flow Rate FiO2 06/09/25 14:20 81 19 97/50 (66) 98 30 06/09/25 08:00 Mechanical Ventilator+ 06/09/25 04:00 98.8 98.8 Total Intake and Output 06/08/25 06/08/25 06/09/25 15:00 23:00 07:00 Intake Total 150 ml 480 ml 200 ml Output Total 92 ml 177 ml Balance 150 ml 388 ml 23 ml medications Current Medications Medications Dose Ordered Sig/Rosa Route Start Time Stop Time Status Last Admin Dose Admin Midazolam HCl 50 ml @ 1 mls/hr Q24H IV 06/02/25 08:45 06/05/25 06:34 6 MLS/HR Fentanyl Citrate 250 ml @ 2.5 mls/hr Q24H IV 06/02/25 09:05 06/04/25 07:14 5 MLS/HR Pantoprazole Sodium 40 mg DAILY IV 06/03/25 10:00 06/09/25 10:12 40 MG Insulin Human Regular Q6HR SC 06/02/25 18:00 06/09/25 12:01 6 UNITS Dextrose 50 ml UD PRN IV 06/02/25 17:45 Diagnostic Test (Pha) 1 strip Q6HR 06/02/25 18:00 06/09/25 12:00 1 STRIP Vancomycin HCl 0 ml @ 0 mls/hr UD IV 06/03/25 14:30 Enteral Nutritional Formula 1,000 ml 30ML/HR GT 06/04/25 14:30 06/09/25 08:41 1,000 ML Amino Acid Protein 30 ml BID GT 06/04/25 22:00 06/09/25 10:13 30 ML Lactulose 15 ml BID PO 06/05/25 22:00 06/08/25 00:36 15 ML Furosemide 40 mg BIDD IV 06/05/25 18:00 06/09/25 06:14 40 MG Meropenem 50 ml @ 17 mls/hr DAILY IV 06/06/25 16:45 06/09/25 10:12 17 MLS/HR Hydralazine HCl 10 mg Q6HP PRN IV 06/07/25 06:00 06/07/25 06:19 10 MG Acetaminophen 650 mg Q6HP PRN GT 06/08/25 00:45 06/08/25 19:21 650 MG Examination: GENERAL:Abnormal, LUNGS:Abnormal (Mechanically ventilated), CVS:Normal, NEURO:Abnormal (Off sedations, not waking up) laboratory and microbiology Laboratory Tests 06/09/25 03:05 Test 06/09/25 03:05 Range/Units Serum Glucose 196 H 74-106 mg/dL Problem List/Assessment/Plan Problem List/Assessment/Plan Cardiopulmonary arrest status post CPR with ROSC NSTEMI, rule out progressive coronary artery disease ?Infective endocarditis Coronary artery disease status post PTCA with multiple MORGAN Acute on chronic HFpEF, NYHA unspecified (patient intubated) Acute anemia status post PRBC transfusion Prolonged QTc interval Chronic kidney disease, now on hemodialysis Type 2 diabetes mellitus Plan/recommendations (Dr. Robison): Case discussed with . The patient came in status post cardiopulmonary arrest with CPR and return of spontaneous circulation. She went underwent a transthoracic echocardiogram which revealed an EF of 50% with a mobile vegetation at the base of the posterior mitral leaflet extending into the mid section of the posterior mitral leaflet. The patient then underwent a transesophageal echocardiogram which revealed a 2-3 mm vegetation in the inferior medial aspect of the base of the posterior mitral leaflet. A infectious disease consultation was recommended. During physical exam, patient is now moving bilateral legs and attempting to open eyes. We will consider for coronary angiogram if neurological status proves to be intact. In the meantime, given the patient's history of CAD, we will recommend to keep the patient's hemoglobin greater than 8.0. We will continue to follow closely. Continue with close cardiac surveillance. Thank you for allowing us to care for this patient. Please call with any questions or concerns. Critical care time spent: 35 minutes. This medical document was created using an electronic medical record system with voice recognition software and computerized dictation system. Although this document has been carefully reviewed, there might still be some phonetic and typographical errors. Occasional wrong-word or ``sound-alike substitutions may have occurred due to the inherent limitations of voice recognition software. These areas are purely typographical due to imperfections of the software programs and do not reflect any compromise in the patient's medical care. Please read the chart carefully and recognize, using context, where these substitutions have occurred. Plan discussed with: Daughter, Other (Bedside RN) Dietary Evaluation Review Comments: 1. TF Nepro Carbsteady @ 3ml/hr x 24 hr along with Pro-stat 1 pk BID. Start @ 20ml/hr, increase 10ml/hr Q4H until goal is reached. TF at goal volume provides 100% energy & protein needs - 1496 kcal, 89gm protein, 523 ml free water 2. Water flush 240ml Q6H if allowed, adjust PRN 3. TPN if NPO > 7 days 4.Monitor NPO status, lab values, wt trends, I/O Expected Outcomes/Goals: To meet >75% estimated needs Lab values to improve Fu 2-3 days Date of Service: Jun 09, 2025 Billing Provider: TIANA ANDRADE Common Visit Codes: 40954-[id number] CARE 30-74 MIN TIANA ANDRADE Jun 09, 2025 15:26
[2025-06-10] VITALS (112 sets, daily range): BP systolic 77–159; BP diastolic 38–112; PULSE 71–91; RESP 8–36; TEMP 98.6–99.3; O2SAT 97–100
[2025-06-10 04:30] LABS: Hematocrit 29.3 % (36.0-46.0); Hemoglobin 9.7 g/dL (12.2-16.2); Mean Corpuscular Hemoglobin 29.9 pg (28.0-32.0); Mean Corpuscular Volume 89.9 fL (80.0-100.0); Nucleated Red Blood Cells % 0.0 %
[2025-06-10 04:43] LABS: Potassium 3.8 mmol/L (3.5-5.1); Sodium 139 mmol/L (136-145)
[2025-06-10 04:44] LABS: Anion Gap 16 (5-15); Carbon Dioxide 26 mmol/L (20-31)
[2025-06-10 04:49] LABS: BUN/Creatinine Ratio 18.6 (10.0-20.0)
[2025-06-10 04:52] LABS: Calcium 11.0 mg/dL (8.7-10.4); Chloride 97 mmol/L (98-107); Glucose 231 mg/dL (74-106); Magnesium 3.3 mg/dL (1.6-2.6)
[2025-06-10 04:55] LABS: Blood Urea Nitrogen 118 mg/dL (9-23)
[2025-06-10] MEDS: DEXMEDETOMIDINE HCL IN D5W 100 ML IV SCH (05:26)
--- NOTE | 2025-06-10 05:38 | DVH ---
CHEST RADIOGRAPH Indication: on vent. Technique: Single frontal view of the chest was obtained Comparison: XY CHEST XRAY 1 VIEW on DOS: 06/09/25, XY CHEST XRAY 1 VIEW on DOS: 06/08/25, XY CHEST XRAY 1 VIEW on DOS: 06/07/25, XY CHEST XRAY 1 VIEW on DOS: 06/06/25, XY CHEST XRAY 1 VIEW on DOS: 06/05/25 FINDINGS: Lines and Tubes: Unchanged endotracheal tube, enteric tube, and tunneled right IJ catheter. Lungs: Similar patchy xpai-iwiciyu-xrzd-right basilar airspace opacities. Pleura: Small left pleural effusion. No pneumothorax. Cardiomediastinal contours: Unchanged. Bones: Unchanged. IMPRESSION: 1. No significant change from the previous study. Persistent infrahilar airspace disease. Stable sup port devices.
[2025-06-10] MEDS: PROPOFOL 100 ML IV SCH (07:00)
[2025-06-10 07:11] LABS: Base Excess -0.6 mmol/L (-2.0-3.0)
--- NOTE | 2025-06-10 15:39 | DVHPN2 ---
Progress Note - Dictate Date Seen: Jun 10, 2025 Medical Necessity Reason Pt with a Central, PICC or Fol: Yes The following are medically ne: Stevens Catheter Reason for stevens catheter: Strict I&O Subjective Remains intubated, patient seen on dialysis vital signs Vital Sign Date Time Temp Pulse Resp B/P (MAP) Pulse Ox O2 Delivery O2 Flow Rate FiO2 06/10/25 15:00 80 21 100/56 (71) 100 06/10/25 14:47 30 06/10/25 14:00 Mechanical Ventilator+ 06/10/25 12:00 98.6 98.6 Total Intake and Output 06/09/25 06/09/25 06/10/25 15:00 23:00 07:00 Intake Total 50 ml 480 ml 307.955 ml Output Total 302 ml 452 ml Balance 50 ml 178 ml -144.045 ml medications Current Medications Medications Dose Ordered Sig/Rosa Route Start Time Stop Time Status Last Admin Dose Admin Fentanyl Citrate 250 ml @ 2.5 mls/hr Q24H IV 06/02/25 09:05 06/04/25 07:14 5 MLS/HR Pantoprazole Sodium 40 mg DAILY IV 06/03/25 10:00 06/10/25 10:03 40 MG Insulin Human Regular Q6HR SC 06/02/25 18:00 06/10/25 13:01 4 UNITS Dextrose 50 ml UD PRN IV 06/02/25 17:45 Diagnostic Test (Pha) 1 strip Q6HR 06/02/25 18:00 06/10/25 13:02 1 STRIP Vancomycin HCl 0 ml @ 0 mls/hr UD IV 06/03/25 14:30 Enteral Nutritional Formula 1,000 ml 30ML/HR GT 06/04/25 14:30 06/09/25 08:41 1,000 ML Amino Acid Protein 30 ml BID GT 06/04/25 22:00 06/09/25 22:08 30 ML Lactulose 15 ml BID PO 06/05/25 22:00 06/08/25 00:36 15 ML Furosemide 40 mg BIDD IV 06/05/25 18:00 06/10/25 05:59 40 MG Meropenem 50 ml @ 17 mls/hr DAILY IV 06/06/25 16:45 06/10/25 10:05 17 MLS/HR Hydralazine HCl 10 mg Q6HP PRN IV 06/07/25 06:00 06/07/25 06:19 10 MG Acetaminophen 650 mg Q6HP PRN GT 06/08/25 00:45 06/08/25 19:21 650 MG Propofol 100 ml @ 1.773 mls/ hr Q24H IV 06/09/25 17:45 objective Gen: nad, sedated and intubated lungs: Occasional rhonchi cvs: no rub abd: soft, bowel sounds audible ext: no edema laboratory and microbiology Laboratory Tests 06/10/25 03:39 Test 06/10/25 03:39 Range/Units Serum Glucose 231 H 74-106 mg/dL Assessment/Plan IMP: 1) Hemodynamically mediated acute kidney injury in the setting of hypotension, status post cardiac arrest 2) CKD stage five / ESRD, 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 TF Nepro Carbsteady @ 3ml/hr x 24 hr along with Pro-stat 1 pk BID. Start @ 20ml/hr, increase 10ml/hr Q4H until goal is reached. TF at goal volume provides 100% energy & protein needs - 1496 kcal, 89gm protein, 523 ml free water 2. Water flush 240ml Q6H if allowed, adjust PRN 3. TPN if NPO > 7 days 4.Monitor NPO status, lab values, wt trends, I/O Expected Outcomes/Goals: To meet >75% estimated needs Lab values to improve Fu 2-3 days Plan discussed with: Other JADE MIRELES MD Jun 10, 2025 15:38
--- NOTE | 2025-06-10 16:12 | DVHPN2 ---
Subjective Following commands spoken by her Azerbaijani-speaking grandson by opening her eyes Reviewed: Care Plan, H&P, Labs, Medications, Previous Orders, Radiology, Other (Consultations) Changes from previous H/P or p: Changes Objective Vitals Vital Signs Date Time Temp Pulse Resp B/P (MAP) Pulse Ox O2 Delivery O2 Flow Rate FiO2 06/10/25 15:00 80 21 100/56 (71) 100 06/10/25 14:47 30 06/10/25 14:00 Mechanical Ventilator+ 06/10/25 12:00 98.6 98.6 Intake/Output Intake and Output 06/10/25 06:59 Intake Total 837.955 ml Output Total 754 ml Balance 83.955 ml Intake Oral 60 ml IV Total 52.955 ml Tube Feeding 605 ml Blood Product 120 ml Output Urine Total 750 ml Urine/Stool Mix 4 ml General Appearance: Other (Intubated and off sedation; following commands) HEENT: Atraumatic, Other (Blind with deformed conjunctiva/cornea) Lungs: Other (Mechanical ventilation sounds) Cardiovascular: Regular rate, Normal S1, Normal S2 Abdomen: Normal bowel sounds, Soft Genitourinary: Other (Mathews's in place) Neuro: Other (Intubated and off sedation; moves all extremities; no facial asymmetry) Psych/Mental Status: Other (Could not be evaluated due to intubation) Medications Current Medications Medications Dose Ordered Sig/Rosa Route Start Time Stop Time Status Last Admin Dose Admin Fentanyl Citrate 250 ml @ 2.5 mls/hr Q24H IV 06/02/25 09:05 06/04/25 07:14 5 MLS/HR Pantoprazole Sodium 40 mg DAILY IV 06/03/25 10:00 06/10/25 10:03 40 MG Insulin Human Regular Q6HR SC 06/02/25 18:00 06/10/25 13:01 4 UNITS Dextrose 50 ml UD PRN IV 06/02/25 17:45 Diagnostic Test (Pha) 1 strip Q6HR 06/02/25 18:00 06/10/25 13:02 1 STRIP Vancomycin HCl 0 ml @ 0 mls/hr UD IV 06/03/25 14:30 Enteral Nutritional Formula 1,000 ml 30ML/HR GT 06/04/25 14:30 06/09/25 08:41 1,000 ML Amino Acid Protein 30 ml BID GT 06/04/25 22:00 06/09/25 22:08 30 ML Lactulose 15 ml BID PO 06/05/25 22:00 06/08/25 00:36 15 ML Furosemide 40 mg BIDD IV 06/05/25 18:00 06/10/25 05:59 40 MG Meropenem 50 ml @ 17 mls/hr DAILY IV 06/06/25 16:45 06/10/25 10:05 17 MLS/HR Hydralazine HCl 10 mg Q6HP PRN IV 06/07/25 06:00 06/07/25 06:19 10 MG Acetaminophen 650 mg Q6HP PRN GT 06/08/25 00:45 06/08/25 19:21 650 MG Propofol 100 ml @ 1.773 mls/ hr Q24H IV 06/09/25 17:45 Laboratory Results Laboratory Tests 06/10/25 03:39 Chemistry Test 06/10/25 03:39 Calcium Level 11.0 mg/dL (8.7-10.4) H Magnesium Level 3.3 mg/dL (1.6-2.6) #H Urinalysis Test 06/02/25 08:49 Urine Color Light-yellow (Yellow) Urine Clarity Turbid (Clear) H Urine pH 5.5 (5.0-9.0) Urine Specific [place] 1.011 (1.001-1.035) Urine Protein 1+ (Negative) H Urine Ketones Negative (Negative) Urine Blood Trace /uL (Negative) H Urine Nitrite Negative (Negative) Urine Bilirubin Negative (Negative) Urine Urobilinogen Normal mg/dL (Negative) Urine Leukocyte Esterase 2+ /uL (Negative) Urine RBC 5 /hpf (0 - 4) Urine WBC Clumps Present /hpf (None Seen) Urine Microscopic WBC 92 /HPF (0-5) H Urine Squamous Epithelial Cells Few /hpf (<5) Urine Bacteria Few /hpf (None Seen) H Urine Mucus Few (None Seen) Urine Glucose 2+ mg/dL (Normal) H Blood Gas Results Test 06/10/25 06:59 Arterial Blood pH 7.415 (7.350-7.450) FiO2 % 30.0 Microbiology Microbiology Date/Time Source Procedure Growth Status 06/06/25 08:45 Blood Blood Culture - Preliminary NO GROWTH AFTER 72 HOURS OF INCUBATION. Resulted 06/03/25 17:20 Nose MRSA Screen - Final Complete 06/02/25 08:54 Sputum Gram Stain - Final Complete 06/02/25 08:54 Respiratory Culture - Final Proteus mirabilis - ESBL Complete 06/02/25 08:49 Voided Urine Urine Culture - Final Complete Labs and/or images reviewed: Labs reviewed by me, Image(s) reviewed by me Assessment/Plan Assessment/Plan Covering: # Acute hypoxic/metabolic/toxic encephalopathy in the setting of septic shock and status post cardiopulmonary arrest # Status post cardiopulmonary arrest with ROSC # Septic shock due to ESBL Proteus mirabilis pneumonia # Acute hypoxic respiratory failure due to pneumonia and pulmonary edema # Pulmonary edema due to fluid overload in the setting of 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 # Pneumonia due to ESBL Proteus mirabilis # [id number] mitral regurgitation # Possible infective endocarditis # Moderate aortic stenosis # NSTEMI; likely type 2 GA; demand ischemia due to above # CAD s/p PCI with MORGAN # MICAELA on CKD V; now ESRD # Diabetes mellitus type 2 # Possible GI bleed # Legally blind Continue vasopressors as needed Continue IV antibiotics Hemodialysis as per Nephrology Reviewed progress notes of consultations Reviewed lab work and imaging studies including ABGs and chest x-rays Reviewed available cultures SCDs for DVT prophylaxis IV Protonix for GI prophylaxis Tube feeding for now Has RUE midline and right subclavian hemodialysis catheter Mathews's catheter in place Continue close monitoring Goals of care discussed with the patient's family for 20 minutes; full code 120 minutes of critical care time Late Entry. This medical document was created using an electronic medical record system with computerized dictation system. Although this document has been carefully reviewed, there might still be some phonetic and typographical errors. These areas are purely typographical due to imperfections of the software programs, and do not reflect any compromise in the patient's medical care. Plan discussed with: Daughter, Other (Nurse; grandson) My Orders Orders - DARLENE PATEL MD Procedure Category Date Status Time Cpap Trial For Am ORDERS 06/10/25 Transmitted 10:05 Apply Barrier Cream FRANK 06/10/25 In Process 11:05 Date of Service: Jun 10, 2025 Billing Provider: DARLENE PATEL MD Common Visit Codes: 97521-[id number] CARE 30-74 MIN (120 minutes), 20026-HIOUVLTS CARE-EACH +30MIN Secondary Visit Codes: 28583-RODRUHER CARE PLAN 30 MINUTES (20 minutes) DARLENE PATEL MD Jun 10, 2025 16:12
--- NOTE | 2025-06-10 20:15 | DVHPN2 ---
Progress Note - Dictate Date Seen: Jun 10, 2025 Medical Necessity Reason Pt with a Central, PICC or Fol: Yes The following are medically ne: Stevens Catheter Reason for stevens catheter: Strict I&O Subjective Ms. Miller is a 74 years old right-handed female with a history of hypertension, diabetes, coronary artery disease, heart attack, congestive heart failure, chronic kidney failure, bilateral eye blindness, she was brought to the [facility] on 06/02/2025 with a chief company of shortness breath. I have seen and examined the patient, I talked to her nurse yesterday when I was out town, and I have discussed the case with her nurse today. He respond to light painful stimuli, but not to voice RN note at 06/09/2024 1854 "RESPONDING TO VERBAL COMMANDS, OPENED HER EYES ON COMMAND AND MOVES HER HEAD. TOES AND LEGS." Social service input appreciated Blood culture, 06/06/2025: Blood culture, 06/02/2025: No glucose Urinalysis, 06/02/2025: WBC: 92, urine leukocyte esterase: 2+, urine WBC clumps: Present UDS, 06/04/2025: Negative WBC/HB/PLT/MCV, 06/08/2025: 10.5/9.7/299/90.1 BUN/CR, 06/08/2025: 58/3.17, 06/10/2025: 118/6.33 GFR, 06/10/2025: Six HGB A1c, 06/03/2025: 3.8 Lactic acid, 06/02/2025: 4.7, 2.1 TG/HDL/LDL/HDL, 06/03/2025: 99/1 5/49/34 GIRISH 06/04/2025: There appears to be a 2-3 mm vegetation in the inferior medial aspect of the base of the posterior mitral leaflet. It appears to be much smaller than on previously evaluated transthoracic echocardiogram. CT head, 06/02/2025: No intracranial hemorrhage or mass effect. Mild chronic microvascular ischemic changes. Bilateral orbital phthisis bulbi. vital signs Vital Sign Date Time Temp Pulse Resp B/P (MAP) Pulse Ox O2 Delivery O2 Flow Rate FiO2 06/10/25 19:15 78 24 110/50 (70) 99 06/10/25 18:59 30 06/10/25 18:00 Mechanical Ventilator+ 06/10/25 16:00 98.8 98.8 Total Intake and Output 06/09/25 06/09/25 06/10/25 15:00 23:00 07:00 Intake Total 50 ml 480 ml 307.955 ml Output Total 302 ml 452 ml Balance 50 ml 178 ml -144.045 ml medications Current Medications Medications Dose Ordered Sig/Rosa Route Start Time Stop Time Status Last Admin Dose Admin Fentanyl Citrate 250 ml @ 2.5 mls/hr Q24H IV 06/02/25 09:05 06/04/25 07:14 5 MLS/HR Pantoprazole Sodium 40 mg DAILY IV 06/03/25 10:00 06/10/25 10:03 40 MG Insulin Human Regular Q6HR SC 06/02/25 18:00 06/10/25 17:52 4 UNITS Dextrose 50 ml UD PRN IV 06/02/25 17:45 Diagnostic Test (Pha) 1 strip Q6HR 06/02/25 18:00 06/10/25 17:49 1 STRIP Vancomycin HCl 0 ml @ 0 mls/hr UD IV 06/03/25 14:30 Enteral Nutritional Formula 1,000 ml 30ML/HR GT 06/04/25 14:30 06/09/25 08:41 1,000 ML Amino Acid Protein 30 ml BID GT 06/04/25 22:00 06/10/25 17:18 30 ML Lactulose 15 ml BID PO 06/05/25 22:00 06/08/25 00:36 15 ML Furosemide 40 mg BIDD IV 06/05/25 18:00 06/10/25 17:39 40 MG Meropenem 50 ml @ 17 mls/hr DAILY IV 06/06/25 16:45 06/10/25 10:05 17 MLS/HR Hydralazine HCl 10 mg Q6HP PRN IV 06/07/25 06:00 06/07/25 06:19 10 MG Acetaminophen 650 mg Q6HP PRN GT 06/08/25 00:45 06/08/25 19:21 650 MG Propofol 100 ml @ 1.773 mls/ hr Q24H IV 06/09/25 17:45 objective The patient is well-nourished and well-developed with no distress. The patient is intubated MENTAL STATUS: Subjective CRANIAL NERVES: Eyes are cloudy.There are corneal reflexes and doll's eyes phenomenon. No signs of facial weakness. There are gagging or coughing reflexes SENSATION: Responds to light pain stimuli. MOTOR: Normal tone in the upper and lower extremity. Normal muscle bulk. No fasciculations. No spontaneous movement. REFLEXES: Deep tendon reflexes are symmetrical. No pathological reflexes. CEREBELLAR/COORDINATION: Deferred GAIT/STATION: deferred laboratory and microbiology Laboratory Tests 06/10/25 03:39 Test 06/10/25 03:39 Range/Units Serum Glucose 231 H 74-106 mg/dL Problem List Coma Hypoxic encephalopathy Metabolic encephalopathy Toxic encephalopathy Status post CPR Cardiopulmonary arrest Urinary tract infection Sepsis Chronic kidney failure Possible endocarditis Assessment/Plan Monitoring Supportive treatment ICU care Follow up blood culture Follow up routine lab EEG Consider MR brain scan Stabilize vitals Respiratory support/vent management Oxygen IV antibiotics More recommendation per clinical course This medical document was created using an electronic medical record system with [employer] dictation system. Although this document has been carefully reviewed, there may still be some phonetic and typographical errors. These areas are purely typographical due to imperfections of the software programs, and do not reflect any compromise in the patient's medical care. Prognosis guarded Dietary Evaluation Review Comments: 1. TF Nepro Carbsteady @ 3ml/hr x 24 hr along with Pro-stat 1 pk BID. Start @ 20ml/hr, increase 10ml/hr Q4H until goal is reached. TF at goal volume provides 100% energy & protein needs - 1496 kcal, 89gm protein, 523 ml free water 2. Water flush 240ml Q6H if allowed, adjust PRN 3. TPN if NPO > 7 days 4.Monitor NPO status, lab values, wt trends, I/O Expected Outcomes/Goals: To meet >75% estimated needs Lab values to improve Fu 2-3 days Plan discussed with: Other Critical Care Time(min): 35 JAYNE LUX MD Jun 10, 2025 20:15
[2025-06-10] MEDS: VANCOMYCIN 500mg/100mL 100 ML IV ONE (20:42)
[2025-06-10] MEDS: EPOETIN ALFA-EPBX 10,000 UNIT/1ML VIAL SC ONE (20:44)
[2025-06-10] MEDS: NOREPINEPHRINE 8 MG/250ML KIT 250 ML IV ONE (23:19)
[2025-06-10] MEDS: NOREPINEPHRINE 8 MG/250ML KIT 250 ML IV SCH (23:19)
--- NOTE | 2025-06-10 23:36 | DVHPN2 ---
Progress Note - Dictate Date Seen: Jun 10, 2025 Medical Necessity Reason Pt with a Central, PICC or Fol: Yes The following are medically ne: Stevens Catheter Reason for stevens catheter: Strict I&O Subjective Patient seen and examined at bedside. intubated on mechanical ventilator. Overnight events reviewed. vital signs Vital Sign Date Time Temp Pulse Resp B/P (MAP) Pulse Ox O2 Delivery O2 Flow Rate FiO2 06/10/25 23:19 103/44 06/10/25 22:28 81 20 100 30 06/10/25 22:00 Mechanical Ventilator+ 06/10/25 20:00 99.3 99.3 Total Intake and Output 06/09/25 06/09/25 06/10/25 15:00 23:00 07:00 Intake Total 50 ml 480 ml 307.955 ml Output Total 302 ml 452 ml Balance 50 ml 178 ml -144.045 ml medications Current Medications Medications Dose Ordered Sig/Rosa Route Start Time Stop Time Status Last Admin Dose Admin Fentanyl Citrate 250 ml @ 2.5 mls/hr Q24H IV 06/02/25 09:05 06/04/25 07:14 5 MLS/HR Pantoprazole Sodium 40 mg DAILY IV 06/03/25 10:00 06/10/25 10:03 40 MG Insulin Human Regular Q6HR SC 06/02/25 18:00 06/10/25 17:52 4 UNITS Dextrose 50 ml UD PRN IV 06/02/25 17:45 Diagnostic Test (Pha) 1 strip Q6HR 06/02/25 18:00 06/10/25 17:49 1 STRIP Vancomycin HCl 0 ml @ 0 mls/hr UD IV 06/03/25 14:30 Enteral Nutritional Formula 1,000 ml 30ML/HR GT 06/04/25 14:30 06/09/25 08:41 1,000 ML Amino Acid Protein 30 ml BID GT 06/04/25 22:00 06/10/25 21:36 30 ML Lactulose 15 ml BID PO 06/05/25 22:00 06/10/25 21:37 15 ML Furosemide 40 mg BIDD IV 06/05/25 18:00 06/10/25 17:39 40 MG Meropenem 50 ml @ 17 mls/hr DAILY IV 06/06/25 16:45 06/10/25 10:05 17 MLS/HR Hydralazine HCl 10 mg Q6HP PRN IV 06/07/25 06:00 06/07/25 06:19 10 MG Acetaminophen 650 mg Q6HP PRN GT 06/08/25 00:45 06/08/25 19:21 650 MG Propofol 100 ml @ 1.773 mls/ hr Q24H IV 06/09/25 17:45 Norepinephrine Bitartrate 250 ml @ 3.75 mls/hr Q24H IV 06/10/25 23:15 06/10/25 23:19 3.75 MLS/HR objective Gen.: Patient lying in bed in medical ICU. Intubated on mechanical ventilator. Head: Normocephalic, atraumatic. Eyes: PERRLA. Ears: Normal external anatomy. Throat: Endotracheal tube and orogastric tube in place. Neck: Supple, trachea midline. Chest: Transmitted breath sounds bilaterally. Decreased air entry bilaterally. No wheezing. Bibasilar crackles. Cardiovascular: Positive S1, positive S2. Regular rate and rhythm. Abdomen: Positive bowel sounds in all 4 quadrants. Soft, nontender, nondistended. : Stevens in place. Normal external genitalia. Rectal: Deferred. Skin: Warm, dry. Intact. Extremities: 2+ radial pulses bilaterally. No lower extremity edema. Neuro: Off sedation laboratory and microbiology Laboratory Tests 06/10/25 03:39 Test 06/10/25 03:39 Range/Units Serum Glucose 231 H 74-106 mg/dL Assessment/Plan Impression: Acute hypoxic respiratory failure On mechanical ventilator S/p cardiac arrest with ROSC Coronary artery disease, s/p stents Congestive heart failure Elevated troponin Anemia Events: Remains on vent support On AC mode; RR 16, VT 400, PEEP 5, FiO2 30% Currently off sedation Hemodialysis per Nephrology via tunneled catheter Follow up Nephrology recommendations Tube feeds for nutritional support Continue antibiotics Patient tolerated CPAP for 3 hours Continue SBT/MELONY. GIRISH on 06/04/2025 showed 2-3 mm vegetation in the inferior medial aspect of the base of the posterior mitral leaflet. It appears to be much smaller than on previously evaluated transthoracic echocardiogram. Cardiology recommendations appreciated Labs and imaging reviewed. Rest of plan as noted below. Plan: s/p intubation on mechanical ventilator. On AC mode; RR 16, VT 400, PEEP 5, FiO2 30% Titrate FIO2 to keep O2 saturation above 90%. VAP bundle. Daily ABG and CXR while intubated Follow up Cardiology recommendations Continue antibiotics. F/u cultures. Pressors as necessary for hemodynamic support Titrate to keep mean arterial pressure greater than 65 mmHg. Monitor hemoglobin Transfuse if less than 7.0 g/dL. Monitor renal function Monitor electrolytes. Supplement as necessary. Monitor ins and outs. Nephrology recs appreciated GI/DVT prophylaxis. Prognosis: Poor given patient's multiple co-morbidities. Condition: Critical Rest of plan per hospitalist and other consultants. A total of 35 minutes of critical care time was spent reviewing the patient record, examining the patient, making a diagnostic and therapeutic plan, discussing this plan with the medical personnel, following up on diagnostic studies and following the patient for clinical stability excluding any and all procedures. At least 50% of this time was spent in direct, [id number] contact. Thank you Dr. Garcia for allowing me to participate in this patient's care. Further recommendations will depend on the patient's clinical course. Please do not hesitate to contact me if you have any questions or concerns. This medical document was created using an electronic medical record system with [employer] dictation system. Although these documentations are being carefully reviewed, there may still be some phonetic and typographical changes. The errors are purely typographical, due to imperfection on the software program, and do not reflect any compromise in the patient's medical care. Dietary Evaluation Review Comments: 1. TF Nepro Carbsteady @ 3ml/hr x 24 hr along with Pro-stat 1 pk BID. Start @ 20ml/hr, increase 10ml/hr Q4H until goal is reached. TF at goal volume provides 100% energy & protein needs - 1496 kcal, 89gm protein, 523 ml free water 2. Water flush 240ml Q6H if allowed, adjust PRN 3. TPN if NPO > 7 days 4.Monitor NPO status, lab values, wt trends, I/O Expected Outcomes/Goals: To meet >75% estimated needs Lab values to improve Fu 2-3 days Plan discussed with: Other (ELISA Cox) Critical Care Time(min): 35 MANOLO HERNDON MD Jun 10, 2025 23:36
[2025-06-11] VITALS (111 sets, daily range): BP systolic 81–157; BP diastolic 38–68; PULSE 70–108; RESP 10–39; TEMP 98.2–100.4; O2SAT 97–100
[2025-06-11 03:21] LABS: Hematocrit 26.2 % (36.0-46.0); Hemoglobin 8.8 g/dL (12.2-16.2); Mean Corpuscular Hemoglobin 29.3 pg (28.0-32.0); Mean Corpuscular Volume 87.3 fL (80.0-100.0); Nucleated Red Blood Cells % 0.1 %
[2025-06-11 03:37] LABS: Albumin 3.4 g/dL (3.2-4.8); Anion Gap 12 (5-15); BUN/Creatinine Ratio 18.7 (10.0-20.0); Calcium 9.9 mg/dL (8.7-10.4); Carbon Dioxide 29 mmol/L (20-31); Potassium 3.5 mmol/L (3.5-5.1); Sodium 138 mmol/L (136-145); Total Protein 6.5 g/dL (5.7-8.2)
[2025-06-11 04:11] LABS: Alanine Aminotransferase 45 U/L (7-40); Alkaline Phosphatase 160 U/L (46-116); Bilirubin, Total 0.3 mg/dL (0.2-1.0); Blood Urea Nitrogen 76 mg/dL (9-23); Chloride 97 mmol/L (98-107); Glucose 240 mg/dL (74-106)
--- NOTE | 2025-06-11 05:48 | DVH ---
CHEST RADIOGRAPH Indication: Intubated. Thank You! Technique: 1 view Comparison: XY CHEST XRAY 1 VIEW on DOS: 06/10/25, XY CHEST XRAY 1 VIEW on DOS: 06/09/25, XY CHEST XRAY 1 VIEW on DOS: 06/08/25, XY CHEST XRAY 1 VIEW on DOS: 06/07/25, XY CHEST XRAY 1 VIEW on DOS: 06/06/25 FINDINGS: Lines and Tubes: Unchanged endotracheal tube, enteric tube, and tunneled right IJ catheter. Lungs: Persistent [id number]-right basilar airspace opacities. Pleura: Small left pleural effusion. Cardiomediastinal contours: Unchanged. Bones: Unchanged. IMPRESSION: 1. No significant change from the previous study.
[2025-06-11 06:46] LABS: Base Excess 4.2 mmol/L (-2.0-3.0)
[2025-06-11 11:02] LABS: Base Excess 4.1 mmol/L (-2.0-3.0)
--- NOTE | 2025-06-11 11:13 | DVHPN2 ---
Progress Note - Dictate Date Seen: Jun 11, 2025 Medical Necessity Reason Pt with a Central, PICC or Fol: Yes The following are medically ne: Stevens Catheter Reason for stevens catheter: Strict I&O Subjective Patient currently on CPAP, patient's family member at bedside vital signs Vital Sign Date Time Temp Pulse Resp B/P (MAP) Pulse Ox O2 Delivery O2 Flow Rate FiO2 06/11/25 11:00 72 15 104/49 (67) 99 06/11/25 10:00 Mechanical Ventilator+ 30 30 06/11/25 08:00 98.2 98.2 Total Intake and Output 06/10/25 06/10/25 06/11/25 15:00 23:00 07:00 Intake Total 55.433 ml 370 ml 396 ml Output Total 351 ml 302 ml Balance 55.433 ml 19 ml 94 ml medications Current Medications Medications Dose Ordered Sig/Rosa Route Start Time Stop Time Status Last Admin Dose Admin Fentanyl Citrate 250 ml @ 2.5 mls/hr Q24H IV 06/02/25 09:05 06/04/25 07:14 5 MLS/HR Pantoprazole Sodium 40 mg DAILY IV 06/03/25 10:00 06/11/25 10:09 40 MG Insulin Human Regular Q6HR SC 06/02/25 18:00 06/11/25 05:41 4 UNITS Dextrose 50 ml UD PRN IV 06/02/25 17:45 Diagnostic Test (Pha) 1 strip Q6HR 06/02/25 18:00 06/11/25 05:41 1 STRIP Vancomycin HCl 0 ml @ 0 mls/hr UD IV 06/03/25 14:30 Enteral Nutritional Formula 1,000 ml 30ML/HR GT 06/04/25 14:30 06/09/25 08:41 1,000 ML Amino Acid Protein 30 ml BID GT 06/04/25 22:00 06/10/25 21:36 30 ML Lactulose 15 ml BID PO 06/05/25 22:00 06/10/25 21:37 15 ML Furosemide 40 mg BIDD IV 06/05/25 18:00 06/11/25 05:43 40 MG Meropenem 50 ml @ 17 mls/hr DAILY IV 06/06/25 16:45 06/11/25 10:09 17 MLS/HR Hydralazine HCl 10 mg Q6HP PRN IV 06/07/25 06:00 06/07/25 06:19 10 MG Acetaminophen 650 mg Q6HP PRN GT 06/08/25 00:45 06/08/25 19:21 650 MG Propofol 100 ml @ 1.773 mls/ hr Q24H IV 06/09/25 17:45 Norepinephrine Bitartrate 250 ml @ 3.75 mls/hr Q24H IV 06/10/25 23:15 06/10/25 23:19 3.75 MLS/HR objective Gen: nad, sedated and intubated lungs: Occasional rhonchi cvs: no rub abd: soft, bowel sounds audible ext: no edema laboratory and microbiology Laboratory Tests 06/11/25 03:03 Test 06/11/25 03:03 Range/Units Serum Glucose 240 H 74-106 mg/dL Assessment/Plan IMP: 1) Hemodynamically mediated acute kidney injury in the setting of hypotension, status post cardiac arrest 2) CKD stage five / ESRD, initiated on dialysis 3) coronary artery disease 4) status post cardiac arrest 5) diabetes REC: - discussed goals of therapy including evaluation for ultrafiltration amount With patient's family member at bedside. - next dialysis tentatively June 13 - noted plans for possible extubation today. Dietary Evaluation Review Comments: 1. TF Nepro Carbsteady @ 3ml/hr x 24 hr along with Pro-stat 1 pk BID. Start @ 20ml/hr, increase 10ml/hr Q4H until goal is reached. TF at goal volume provides 100% energy & protein needs - 1496 kcal, 89gm protein, 523 ml free water 2. Water flush 240ml Q6H if allowed, adjust PRN 3. TPN if NPO > 7 days 4.Monitor NPO status, lab values, wt trends, I/O Expected Outcomes/Goals: To meet >75% estimated needs Lab values to improve Fu 2-3 days Plan discussed with: Daughter JADE MIRELES MD Jun 11, 2025 11:13
--- NOTE | 2025-06-11 13:56 | DVHPN2 ---
Subjective Following commands spoken by her Mexican-speaking daughter by opening her eyes; currently off IV vasopressors Reviewed: Care Plan, H&P, Labs, Medications, Previous Orders, Radiology, Other (Consultations) Changes from previous H/P or p: Changes Objective Vitals Vital Signs Date Time Temp Pulse Resp B/P (MAP) Pulse Ox O2 Delivery O2 Flow Rate FiO2 06/11/25 12:30 81 22 128/58 (81) 98 06/11/25 12:17 30 06/11/25 12:00 99.0 99.0 06/11/25 11:53 Mechanical Ventilator+ Intake/Output Intake and Output 06/11/25 07:00 Intake Total 821.433 ml Output Total 653 ml Balance 168.433 ml Intake Oral 320 ml IV Total 155.433 ml Tube Feeding 346 ml Output Urine Total 650 ml Urine/Stool Mix 3 ml General Appearance: Other (Intubated and off sedation; following commands) HEENT: Atraumatic, Other (Blind with deformed conjunctiva/cornea) Lungs: Other (Mechanical ventilation sounds) Cardiovascular: Regular rate, Normal S1, Normal S2 Abdomen: Normal bowel sounds, Soft Genitourinary: Other (Mathews's in place) Neuro: Other (Intubated and off sedation; moves all extremities; no facial asymmetry) Psych/Mental Status: Other (Could not be evaluated due to intubation) Medications Current Medications Medications Dose Ordered Sig/Rosa Route Start Time Stop Time Status Last Admin Dose Admin Fentanyl Citrate 250 ml @ 2.5 mls/hr Q24H IV 06/02/25 09:05 06/04/25 07:14 5 MLS/HR Pantoprazole Sodium 40 mg DAILY IV 06/03/25 10:00 06/11/25 10:09 40 MG Insulin Human Regular Q6HR SC 06/02/25 18:00 06/11/25 11:57 3 UNITS Dextrose 50 ml UD PRN IV 06/02/25 17:45 Diagnostic Test (Pha) 1 strip Q6HR 06/02/25 18:00 06/11/25 11:54 1 STRIP Vancomycin HCl 0 ml @ 0 mls/hr UD IV 06/03/25 14:30 Enteral Nutritional Formula 1,000 ml 30ML/HR GT 06/04/25 14:30 06/09/25 08:41 1,000 ML Amino Acid Protein 30 ml BID GT 06/04/25 22:00 8/25 21:36 30 ML Lactulose 15 ml BID PO 06/05/25 22:00 06/10/25 21:37 15 ML Furosemide 40 mg BIDD IV 06/05/25 18:00 06/11/25 05:43 40 MG Meropenem 50 ml @ 17 mls/hr DAILY IV 06/06/25 16:45 06/11/25 10:09 17 MLS/HR Hydralazine HCl 10 mg Q6HP PRN IV 06/07/25 06:00 06/07/25 06:19 10 MG Acetaminophen 650 mg Q6HP PRN GT 06/08/25 00:45 06/08/25 19:21 650 MG Propofol 100 ml @ 1.773 mls/ hr Q24H IV 06/09/25 17:45 Norepinephrine Bitartrate 250 ml @ 3.75 mls/hr Q24H IV 06/10/25 23:15 06/10/25 23:19 3.75 MLS/HR Laboratory Results Laboratory Tests 06/11/25 03:03 Chemistry Test 06/11/25 03:03 Albumin 3.4 g/dL (3.2-4.8) Calcium Level 9.9 mg/dL (8.7-10.4) Total Protein 6.5 g/dL (5.7-8.2) LFT Test 06/11/25 03:03 Alanine Aminotransferase (ALT) 45 U/L (7-40) H Alkaline Phosphatase 160 U/L (46-116) H Aspartate Amino Transferase (AST) 45 U/L (13-40) H Total Bilirubin 0.3 mg/dL (0.2-1.0) Urinalysis Test 06/02/25 08:49 Urine Color Light-yellow (Yellow) Urine Clarity Turbid (Clear) H Urine pH 5.5 (5.0-9.0) Urine Specific [place] 1.011 (1.001-1.035) Urine Protein 1+ (Negative) H Urine Ketones Negative (Negative) Urine Blood Trace /uL (Negative) H Urine Nitrite Negative (Negative) Urine Bilirubin Negative (Negative) Urine Urobilinogen Normal mg/dL (Negative) Urine Leukocyte Esterase 2+ /uL (Negative) Urine RBC 5 /hpf (0 - 4) Urine WBC Clumps Present /hpf (None Seen) Urine Microscopic WBC 92 /HPF (0-5) H Urine Squamous Epithelial Cells Few /hpf (<5) Urine Bacteria Few /hpf (None Seen) H Urine Mucus Few (None Seen) Urine Glucose 2+ mg/dL (Normal) H Blood Gas Results Test 06/11/25 06:42 06/11/25 10:50 Arterial Blood pH 7.475 (7.350-7.450) 7.449 (7.350-7.450) FiO2 % 30.0 30.0 Microbiology Microbiology Date/Time Source Procedure Growth Status 06/06/25 08:45 Blood Blood Culture - Final NO GROWTH AFTER 5 DAYS OF INCUBATION. Complete 06/03/25 17:20 Nose MRSA Screen - Final Complete 06/02/25 08:54 Sputum Gram Stain - Final Complete 06/02/25 08:54 Respiratory Culture - Final Proteus mirabilis - ESBL Complete 06/02/25 08:49 Voided Urine Urine Culture - Final Complete Labs and/or images reviewed: Labs reviewed by me, Image(s) reviewed by me Assessment/Plan Assessment/Plan Covering: # Acute hypoxic/metabolic/toxic encephalopathy in the setting of septic shock and status post cardiopulmonary arrest # Status post cardiopulmonary arrest with ROSC # Septic shock due to ESBL Proteus mirabilis pneumonia # Acute hypoxic respiratory failure due to pneumonia and pulmonary edema # Pulmonary edema due to fluid overload in the setting of 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 # Pneumonia due to ESBL Proteus mirabilis # [id number] mitral regurgitation # Possible infective endocarditis # Moderate aortic stenosis # NSTEMI; likely type 2 KS; demand ischemia due to above # CAD s/p PCI with MORGAN # MICAELA on CKD V; now ESRD # Diabetes mellitus type 2 # Possible GI bleed # Legally blind CPAP trial this morning; family is at bedside counseled the patient; Precedex caused hypotension and bradycardia so was stopped yesterday Off vasopressors Continue IV antibiotics Hemodialysis as per Nephrology Reviewed progress notes of consultations Reviewed lab work and imaging studies including ABGs and chest x-rays Continue mechanical ventilation as indicated Reviewed available cultures SCDs for DVT prophylaxis due to possible GI bleed IV Protonix for GI prophylaxis Has RUE midline and right subclavian hemodialysis catheter Mathews's catheter in place Continue close monitoring 66 minutes of critical care time Late Entry. This medical document was created using an electronic medical record system with computerized dictation system. Although this document has been carefully reviewed, there might still be some phonetic and typographical errors. These areas are purely typographical due to imperfections of the software programs, and do not reflect any compromise in the patient's medical care. Plan discussed with: Daughter, Other (Nurse) My Orders Orders - DARLENE PATEL MD Procedure Category Date Status Time Chest Xray 1 View XY 06/11/25 Resulted 04:00 Abg W/ Co-Ox RT 06/11/25 Logged 06:00 Complete Blood Count LAB 06/12/25 Verified 04:00 Comprehensive LAB 06/12/25 Verified Metabolic Panel 04:00 Chest Xray 1 View XY 06/12/25 Logged 04:00 Abg W/ Co-Ox RT 06/12/25 Logged 06:00 Date of Service: Jun 11, 2025 Billing Provider: DARLENE PATEL MD Common Visit Codes: [id number] CARE 30-74 MIN (66 minutes) DARLENE PATEL MD Jun 11, 2025 13:56
--- NOTE | 2025-06-11 16:05 | DVHPN2 ---
Progress Note - Dictate Date Seen: Jun 11, 2025 Medical Necessity Reason Pt with a Central, PICC or Fol: Yes The following are medically ne: Stevens Catheter Reason for stevens catheter: Strict I&O Subjective Ms. Miller is a 74 years old right-handed female with a history of hypertension, diabetes, coronary artery disease, heart attack, congestive heart failure, chronic kidney failure, bilateral eye blindness, she was brought to the [facility] on 06/02/2025 with a chief company of shortness breath. I have seen and examined the patient, I talked to her nurse, family is in the room with her. She is awake, she follows verbal commands, he moves the arms and legs She failed CPAP trial Blood culture, 06/06/2025: Blood culture, 06/02/2025: No glucose Urinalysis, 06/02/2025: WBC: 92, urine leukocyte esterase: 2+, urine WBC clumps: Present UDS, 06/04/2025: Negative WBC/HB/PLT/MCV, 06/08/2025: 10.5/9.7/299/90.1 BUN/CR, 06/08/2025: 58/3.17, 06/10/2025: 118/6.33 GFR, 06/10/2025: Six HGB A1c, 06/03/2025: 3.8 Lactic acid, 06/02/2025: 4.7, 2.1 TG/HDL/LDL/HDL, 06/03/2025: 99/1 5/49/34 GIRISH 06/04/2025: There appears to be a 2-3 mm vegetation in the inferior medial aspect of the base of the posterior mitral leaflet. It appears to be much smaller than on previously evaluated transthoracic echocardiogram. CT head, 06/02/2025: No intracranial hemorrhage or mass effect. Mild chronic microvascular ischemic changes. Bilateral orbital phthisis bulbi. vital signs Vital Sign Date Time Temp Pulse Resp B/P (MAP) Pulse Ox O2 Delivery O2 Flow Rate FiO2 06/11/25 14:28 80 17 122/62 (82) 99 30 06/11/25 13:55 Mechanical Ventilator+ 06/11/25 12:00 99.0 99.0 Total Intake and Output 06/10/25 06/10/25 06/11/25 15:00 23:00 07:00 Intake Total 55.433 ml 370 ml 396 ml Output Total 351 ml 302 ml Balance 55.433 ml 19 ml 94 ml medications Current Medications Medications Dose Ordered Sig/Rosa Route Start Time Stop Time Status Last Admin Dose Admin Fentanyl Citrate 250 ml @ 2.5 mls/hr Q24H IV 06/02/25 09:05 06/04/25 07:14 5 MLS/HR Pantoprazole Sodium 40 mg DAILY IV 06/03/25 10:00 06/11/25 10:09 40 MG Insulin Human Regular Q6HR SC 06/02/25 18:00 06/11/25 11:57 3 UNITS Dextrose 50 ml UD PRN IV 06/02/25 17:45 Diagnostic Test (Pha) 1 strip Q6HR 06/02/25 18:00 06/11/25 11:54 1 STRIP Vancomycin HCl 0 ml @ 0 mls/hr UD IV 06/03/25 14:30 Enteral Nutritional Formula 1,000 ml 30ML/HR GT 06/04/25 14:30 06/09/25 08:41 1,000 ML Amino Acid Protein 30 ml BID GT 06/04/25 22:00 06/10/25 21:36 30 ML Lactulose 15 ml BID PO 06/05/25 22:00 06/10/25 21:37 15 ML Furosemide 40 mg BIDD IV 06/05/25 18:00 06/11/25 05:43 40 MG Meropenem 50 ml @ 17 mls/hr DAILY IV 06/06/25 16:45 06/11/25 10:09 17 MLS/HR Hydralazine HCl 10 mg Q6HP PRN IV 06/07/25 06:00 06/07/25 06:19 10 MG Acetaminophen 650 mg Q6HP PRN GT 06/08/25 00:45 06/08/25 19:21 650 MG Propofol 100 ml @ 1.773 mls/ hr Q24H IV 06/09/25 17:45 Norepinephrine Bitartrate 250 ml @ 3.75 mls/hr Q24H IV 06/10/25 23:15 06/10/25 23:19 3.75 MLS/HR objective The patient is well-nourished and well-developed with no distress. The patient is intubated MENTAL STATUS: Subjective CRANIAL NERVES: Eyes are cloudy. Normal conjugated eye movement. Sensorimotor examined in bilateral trigeminal distribution is fine No signs of facial weakness. There are gagging or coughing reflexes SENSATION: Responds to light touch MOTOR: Normal tone in the upper and lower extremity. Normal muscle bulk. No fasciculations. She moves the arms and legs REFLEXES: Deep tendon reflexes are symmetrical. No pathological reflexes. CEREBELLAR/COORDINATION: Deferred GAIT/STATION: deferred laboratory and microbiology Laboratory Tests 06/11/25 03:03 Test 06/11/25 03:03 Range/Units Serum Glucose 240 H 74-106 mg/dL Problem List Coma Hypoxic encephalopathy Metabolic encephalopathy Toxic encephalopathy Status post CPR Cardiopulmonary arrest Urinary tract infection Sepsis Chronic kidney failure Possible endocarditis Assessment/Plan Monitoring Supportive treatment ICU care Follow up blood culture Follow up routine lab EEG Consider MR brain scan Stabilize vitals Respiratory support/vent management Oxygen IV antibiotics More recommendation per clinical course This medical document was created using an electronic medical record system with [employer] dictation system. Although this document has been carefully reviewed, there may still be some phonetic and typographical errors. These areas are purely typographical due to imperfections of the software programs, and do not reflect any compromise in the patient's medical care. Prognosis guarded Dietary Evaluation Review Comments: 1. TF Nepro Carbsteady @ 3ml/hr x 24 hr along with Pro-stat 1 pk BID. Start @ 20ml/hr, increase 10ml/hr Q4H until goal is reached. TF at goal volume provides 100% energy & protein needs - 1496 kcal, 89gm protein, 523 ml free water 2. Water flush 240ml Q6H if allowed, adjust PRN 3. TPN if NPO > 7 days 4.Monitor NPO status, lab values, wt trends, I/O Expected Outcomes/Goals: To meet >75% estimated needs Lab values to improve Fu 2-3 days Plan discussed with: Daughter, Other Critical Care Time(min): 30 JAYNE LUX MD Jun 11, 2025 16:05
--- NOTE | 2025-06-11 18:12 | DVHPN2 ---
Subjective Normal sinus rhythm on monitor No cardiac events reported Reviewed: Care Plan, H&P, Labs, Medications, Previous Orders, Radiology, Other (Consultations) Changes from previous H/P or p: No Changes Objective Vitals Vital Signs Date Time Temp Pulse Resp B/P (MAP) Pulse Ox O2 Delivery O2 Flow Rate FiO2 06/11/25 17:53 123/57 06/11/25 16:30 71 14 99 06/11/25 16:05 30 06/11/25 16:00 Mechanical Ventilator+ 06/11/25 16:00 99.3 99.3 Intake/Output Intake and Output 06/11/25 07:00 Intake Total 821.433 ml Output Total 653 ml Balance 168.433 ml Intake Oral 320 ml IV Total 155.433 ml Tube Feeding 346 ml Output Urine Total 650 ml Urine/Stool Mix 3 ml General Appearance: Other (More awake, off sedation, of the vasopressors) HEENT: Atraumatic, Other Lungs: Other (Mechanical ventilation sounds) Cardiovascular: Regular rate, Normal S1, Normal S2 Abdomen: Normal bowel sounds, Soft Genitourinary: Other (Mathews's in place) Neuro: Other (Intubated and off sedation; moves all extremities; no facial asymmetry) Psych/Mental Status: Other (Could not be evaluated due to intubation) Medications Current Medications Medications Dose Ordered Sig/Rosa Route Start Time Stop Time Status Last Admin Dose Admin Fentanyl Citrate 250 ml @ 2.5 mls/hr Q24H IV 06/02/25 09:05 06/04/25 07:14 5 MLS/HR Pantoprazole Sodium 40 mg DAILY IV 06/03/25 10:00 06/11/25 10:09 40 MG Insulin Human Regular Q6HR SC 06/02/25 18:00 06/11/25 17:54 2 UNITS Dextrose 50 ml UD PRN IV 06/02/25 17:45 Diagnostic Test (Pha) 1 strip Q6HR 06/02/25 18:00 06/11/25 17:52 1 STRIP Vancomycin HCl 0 ml @ 0 mls/hr UD IV 06/03/25 14:30 Enteral Nutritional Formula 1,000 ml 30ML/HR GT 06/04/25 14:30 06/09/25 08:41 1,000 ML Amino Acid Protein 30 ml BID GT 06/04/25 22:00 06/10/25 21:36 30 ML Lactulose 15 ml BID PO 06/05/25 22:00 06/10/25 21:37 15 ML Furosemide 40 mg BIDD IV 06/05/25 18:00 06/11/25 17:53 40 MG Meropenem 50 ml @ 17 mls/hr DAILY IV 06/06/25 16:45 06/11/25 10:09 17 MLS/HR Hydralazine HCl 10 mg Q6HP PRN IV 06/07/25 06:00 06/07/25 06:19 10 MG Acetaminophen 650 mg Q6HP PRN GT 06/08/25 00:45 06/08/25 19:21 650 MG Propofol 100 ml @ 1.773 mls/ hr Q24H IV 06/09/25 17:45 Norepinephrine Bitartrate 250 ml @ 3.75 mls/hr Q24H IV 06/10/25 23:15 06/10/25 23:19 3.75 MLS/HR Laboratory Results Laboratory Tests 06/11/25 03:03 Chemistry Test 06/11/25 03:03 Albumin 3.4 g/dL (3.2-4.8) Calcium Level 9.9 mg/dL (8.7-10.4) Total Protein 6.5 g/dL (5.7-8.2) LFT Test 06/11/25 03:03 Alanine Aminotransferase (ALT) 45 U/L (7-40) H Alkaline Phosphatase 160 U/L (46-116) H Aspartate Amino Transferase (AST) 45 U/L (13-40) H Total Bilirubin 0.3 mg/dL (0.2-1.0) Urinalysis Test 06/02/25 08:49 Urine Color Light-yellow (Yellow) Urine Clarity Turbid (Clear) H Urine pH 5.5 (5.0-9.0) Urine Specific [place] 1.011 (1.001-1.035) Urine Protein 1+ (Negative) H Urine Ketones Negative (Negative) Urine Blood Trace /uL (Negative) H Urine Nitrite Negative (Negative) Urine Bilirubin Negative (Negative) Urine Urobilinogen Normal mg/dL (Negative) Urine Leukocyte Esterase 2+ /uL (Negative) Urine RBC 5 /hpf (0 - 4) Urine WBC Clumps Present /hpf (None Seen) Urine Microscopic WBC 92 /HPF (0-5) H Urine Squamous Epithelial Cells Few /hpf (<5) Urine Bacteria Few /hpf (None Seen) H Urine Mucus Few (None Seen) Urine Glucose 2+ mg/dL (Normal) H Blood Gas Results Test 06/11/25 06:42 06/11/25 10:50 Arterial Blood pH 7.475 (7.350-7.450) 7.449 (7.350-7.450) FiO2 % 30.0 30.0 Microbiology Microbiology Date/Time Source Procedure Growth Status 06/06/25 08:45 Blood Blood Culture - Final NO GROWTH AFTER 5 DAYS OF INCUBATION. Complete 06/03/25 17:20 Nose MRSA Screen - Final Complete 06/02/25 08:54 Sputum Gram Stain - Final Complete 06/02/25 08:54 Respiratory Culture - Final Proteus mirabilis - ESBL Complete 06/02/25 08:49 Voided Urine Urine Culture - Final Complete Assessment/Plan Assessment/Plan Cardiopulmonary arrest status post CPR with ROSC NSTEMI, rule out progressive coronary artery disease ?Infective endocarditis Coronary artery disease status post PTCA with multiple MORGAN Acute on chronic HFpEF, NYHA unspecified (patient intubated) Acute anemia status post PRBC transfusion Prolonged QTc interval Chronic kidney disease, now on hemodialysis Type 2 diabetes mellitus Plan/recommendations (Dr. Banks): The patient came in status post cardiopulmonary arrest with CPR and return of spontaneous circulation. She went underwent a transthoracic echocardiogram which revealed an EF of 50% with a mobile vegetation at the base of the posterior mitral leaflet extending into the mid section of the posterior mitral leaflet. The patient then underwent a transesophageal echocardiogram which revealed a 2-3 mm vegetation in the inferior medial aspect of the base of the posterior mitral leaflet. A infectious disease consultation was recommended. During exam, the patient is more awake, plan for CPAP tomorrow. off vasopressors. Continue with cardiac surveillance Critical care time spent: 35 minutes. This medical document was created using an electronic medical record system with voice recognition software and computerized dictation system. Although this document has been carefully reviewed, there might still be some phonetic and typographical errors. Occasional wrong-word or ``sound-alike substitutions may have occurred due to the inherent limitations of voice recognition software. These areas are purely typographical due to imperfections of the software programs and do not reflect any compromise in the patient's medical care. Please read the chart carefully and recognize, using context, where these substitutions have occurred. Plan discussed with: Daughter, Other (Bedside RN) Critical care time spent: 35 minutes. This medical document was created using an electronic medical record system with voice recognition software and computerized dictation system. Although this document has been carefully reviewed, there might still be some phonetic and typographical errors. Occasional wrong-word or ``sound-alike substitutions may have occurred due to the inherent limitations of voice recognition software. These areas are purely typographical due to imperfections of the software programs and do not reflect any compromise in the patient's medical care. Please read the chart carefully and recognize, using context, where these substitutions have occurred. Plan discussed with: Daughter, Other (Bedside RN) Plan discussed with: Patient, Other (RN) Date of Service: Jun 11, 2025 Billing Provider: NATALIE BANKS Sr., MD Common Visit Codes: CONSULT ONLY Consultation Codes: [id number] CONSULT <45MIN GANGA BOLIVAR PARK RANGER Jun 11, 2025 18:12
--- NOTE | 2025-06-11 23:47 | DVHPN2 ---
Progress Note - Dictate Date Seen: Jun 11, 2025 Medical Necessity Reason Pt with a Central, PICC or Fol: Yes The following are medically ne: Stevens Catheter Reason for stevens catheter: Strict I&O Subjective Patient seen and examined at bedside. intubated on mechanical ventilator. Overnight events reviewed. vital signs Vital Sign Date Time Temp Pulse Resp B/P (MAP) Pulse Ox O2 Delivery O2 Flow Rate FiO2 06/11/25 22:13 72 20 139/64 (89) 99 30 06/11/25 22:00 Mechanical Ventilator+ 06/11/25 20:00 98.8 98.8 Total Intake and Output 06/10/25 06/10/25 06/11/25 15:00 23:00 07:00 Intake Total 55.433 ml 370 ml 396 ml Output Total 351 ml 302 ml Balance 55.433 ml 19 ml 94 ml medications Current Medications Medications Dose Ordered Sig/Rosa Route Start Time Stop Time Status Last Admin Dose Admin Fentanyl Citrate 250 ml @ 2.5 mls/hr Q24H IV 06/02/25 09:05 06/04/25 07:14 5 MLS/HR Pantoprazole Sodium 40 mg DAILY IV 06/03/25 10:00 06/11/25 10:09 40 MG Insulin Human Regular Q6HR SC 06/02/25 18:00 06/11/25 17:54 2 UNITS Dextrose 50 ml UD PRN IV 06/02/25 17:45 Diagnostic Test (Pha) 1 strip Q6HR 06/02/25 18:00 06/11/25 17:52 1 STRIP Vancomycin HCl 0 ml @ 0 mls/hr UD IV 06/03/25 14:30 Enteral Nutritional Formula 1,000 ml 30ML/HR GT 06/04/25 14:30 06/09/25 08:41 1,000 ML Amino Acid Protein 30 ml BID GT 06/04/25 22:00 06/10/25 21:36 30 ML Lactulose 15 ml BID PO 06/05/25 22:00 06/10/25 21:37 15 ML Furosemide 40 mg BIDD IV 06/05/25 18:00 06/11/25 17:53 40 MG Meropenem 50 ml @ 17 mls/hr DAILY IV 06/06/25 16:45 06/11/25 10:09 17 MLS/HR Hydralazine HCl 10 mg Q6HP PRN IV 06/07/25 06:00 06/07/25 06:19 10 MG Acetaminophen 650 mg Q6HP PRN GT 06/08/25 00:45 06/08/25 19:21 650 MG Propofol 100 ml @ 1.773 mls/ hr Q24H IV 06/09/25 17:45 Norepinephrine Bitartrate 250 ml @ 3.75 mls/hr Q24H IV 06/10/25 23:15 06/10/25 23:19 3.75 MLS/HR objective Gen.: Patient lying in bed in medical ICU. Intubated on mechanical ventilator. Head: Normocephalic, atraumatic. Eyes: PERRLA. Ears: Normal external anatomy. Throat: Endotracheal tube and orogastric tube in place. Neck: Supple, trachea midline. Chest: Transmitted breath sounds bilaterally. Decreased air entry bilaterally. No wheezing. Bibasilar crackles. Cardiovascular: Positive S1, positive S2. Regular rate and rhythm. Abdomen: Positive bowel sounds in all 4 quadrants. Soft, nontender, nondistended. : Stevens in place. Normal external genitalia. Rectal: Deferred. Skin: Warm, dry. Intact. Extremities: 2+ radial pulses bilaterally. No lower extremity edema. Neuro: Off sedation, following commands laboratory and microbiology Laboratory Tests 06/11/25 03:03 Test 06/11/25 03:03 Range/Units Serum Glucose 240 H 74-106 mg/dL Assessment/Plan Impression: Acute hypoxic respiratory failure On mechanical ventilator S/p cardiac arrest with ROSC Coronary artery disease, s/p stents Congestive heart failure Elevated troponin Anemia Events: Remains off sedation Patient tolerated CPAP Mentation is slowly improving. Now following commands. She was placed back on full support Vent support On AC mode; RR 16, VT 400, PEEP 5, FiO2 30% Hemodialysis per Nephrology via tunneled catheter Follow up Nephrology recommendations Tube feeds for nutritional support Continue antibiotics Continue SBT/MELONY - plan for CPAP in AM. GIRISH on 06/04/2025 showed 2-3 mm vegetation in the inferior medial aspect of the base of the posterior mitral leaflet. It appears to be much smaller than on previously evaluated transthoracic echocardiogram. Cardiology recommendations appreciated Labs and imaging reviewed. Rest of plan as noted below. Plan: s/p intubation on mechanical ventilator. On AC mode; RR 16, VT 400, PEEP 5, FiO2 30% Titrate FIO2 to keep O2 saturation above 90%. VAP bundle. Daily ABG and CXR while intubated Follow up Cardiology recommendations Continue antibiotics. F/u cultures. Pressors as necessary for hemodynamic support Titrate to keep mean arterial pressure greater than 65 mmHg. Monitor hemoglobin Transfuse if less than 7.0 g/dL. Monitor renal function Monitor electrolytes. Supplement as necessary. Monitor ins and outs. Nephrology recs appreciated GI/DVT prophylaxis. Prognosis: Poor given patient's multiple co-morbidities. Condition: Critical Rest of plan per hospitalist and other consultants. A total of 35 minutes of critical care time was spent reviewing the patient record, examining the patient, making a diagnostic and therapeutic plan, discussing this plan with the medical personnel, following up on diagnostic studies and following the patient for clinical stability excluding any and all procedures. At least 50% of this time was spent in direct, [id number] contact. Thank you Dr. Garcia for allowing me to participate in this patient's care. Further recommendations will depend on the patient's clinical course. Please do not hesitate to contact me if you have any questions or concerns. This medical document was created using an electronic medical record system with [employer] dictation system. Although these documentations are being carefully reviewed, there may still be some phonetic and typographical changes. The errors are purely typographical, due to imperfection on the software program, and do not reflect any compromise in the patient's medical care. Dietary Evaluation Review Comments: 1. TF Nepro Carbsteady @ 3ml/hr x 24 hr along with Pro-stat 1 pk BID. Start @ 20ml/hr, increase 10ml/hr Q4H until goal is reached. TF at goal volume provides 100% energy & protein needs - 1496 kcal, 89gm protein, 523 ml free water 2. Water flush 240ml Q6H if allowed, adjust PRN 3. TPN if NPO > 7 days 4.Monitor NPO status, lab values, wt trends, I/O Expected Outcomes/Goals: To meet >75% estimated needs Lab values to improve Fu 2-3 days Plan discussed with: Other (ELISA Woods) Critical Care Time(min): 35 MANOLO HERNDON MD Jun 11, 2025 23:47
[2025-06-12] VITALS (108 sets, daily range): BP systolic 79–155; BP diastolic 45–74; PULSE 69–103; RESP 12–62; TEMP 98.3–98.8; O2SAT 92–100
[2025-06-12 04:06] LABS: Hematocrit 25.7 % (36.0-46.0); Hemoglobin 8.7 g/dL (12.2-16.2); Mean Corpuscular Hemoglobin 30.0 pg (28.0-32.0); Mean Corpuscular Volume 88.3 fL (80.0-100.0); Nucleated Red Blood Cells % 0.1 %
[2025-06-12 04:22] LABS: Albumin 3.4 g/dL (3.2-4.8); Anion Gap 15 (5-15); BUN/Creatinine Ratio 17.3 (10.0-20.0); Bilirubin, Total 0.3 mg/dL (0.2-1.0); Carbon Dioxide 27 mmol/L (20-31); Chloride 98 mmol/L (98-107); Sodium 140 mmol/L (136-145); Total Protein 6.6 g/dL (5.7-8.2)
[2025-06-12 04:23] LABS: Alanine Aminotransferase 42 U/L (7-40); Alkaline Phosphatase 138 U/L (46-116); Calcium 10.4 mg/dL (8.7-10.4); Glucose 112 mg/dL (74-106); Potassium 3.3 mmol/L (3.5-5.1)
[2025-06-12 04:24] LABS: Blood Urea Nitrogen 90 mg/dL (9-23)
--- NOTE | 2025-06-12 04:46 | DVH ---
CHEST RADIOGRAPH Indication: Intubated. Thank You! Technique: 1 view Comparison: XY CHEST XRAY 1 VIEW on DOS: 06/11/25, XY CHEST XRAY 1 VIEW on DOS: 06/10/25, XY CHEST XRAY 1 VIEW on DOS: 06/09/25, XY CHEST XRAY 1 VIEW on DOS: 06/08/25, XY CHEST XRAY 1 VIEW on DOS: 06/07/25 FINDINGS: Lines and Tubes: Unchanged endotracheal tube, enteric tube, and tunneled right IJ catheter. Lungs: Similar degree of perihilar interstitial edema and left basilar atelectasis. Pleura: Small left pleural effusion. Cardiomediastinal contours: Unchanged. Bones: Unchanged. IMPRESSION: 1. No significant change from the previous study.
[2025-06-12] MEDS ORDERED: POTASSIUM CHL 20MEQ/100ML 100 ML IV ONE (07:30)
[2025-06-12 07:39] LABS: Base Excess 2.5 mmol/L (-2.0-3.0)
[2025-06-12] MEDS: POTASSIUM EFFERVESENT TAB 25 MEQ GT ONE (09:47)
[2025-06-12] MEDS: FUROSEMIDE 40 MG/4 ML VIAL IV ONE (09:47)
--- NOTE | 2025-06-12 10:06 | DVHPN2 ---
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 Objective vital signs Vital Sign Date Time Temp Pulse Resp B/P (MAP) Pulse Ox O2 Delivery O2 Flow Rate FiO2 06/12/25 09:47 107/48 06/12/25 08:07 78 16 98 30 06/12/25 06:00 Mechanical Ventilator+ 06/12/25 00:01 98.7 98.7 Total Intake and Output 06/11/25 06/11/25 06/12/25 15:00 23:00 07:00 Intake Total 51 ml 0 ml 260 ml Output Total 350 ml 450 ml Balance 51 ml -350 ml -190 ml medications Current Medications Medications Dose Ordered Sig/Rosa Route Start Time Stop Time Status Last Admin Dose Admin Pantoprazole Sodium 40 mg DAILY IV 06/03/25 10:00 06/12/25 09:47 40 MG Insulin Human Regular Q6HR SC 06/02/25 18:00 06/12/25 00:25 3 UNITS Dextrose 50 ml UD PRN IV 06/02/25 17:45 Diagnostic Test (Pha) 1 strip Q6HR 06/02/25 18:00 06/12/25 05:22 1 STRIP Vancomycin HCl 0 ml @ 0 mls/hr UD IV 06/03/25 14:30 Enteral Nutritional Formula 1,000 ml 30ML/HR GT 06/04/25 14:30 06/09/25 08:41 1,000 ML Amino Acid Protein 30 ml BID GT 06/04/25 22:00 06/12/25 09:48 30 ML Furosemide 40 mg BIDD IV 06/05/25 18:00 06/12/25 05:22 40 MG Meropenem 50 ml @ 17 mls/hr DAILY IV 06/06/25 16:45 06/12/25 09:47 17 MLS/HR Hydralazine HCl 10 mg Q6HP PRN IV 06/07/25 06:00 06/07/25 06:19 10 MG Acetaminophen 650 mg Q6HP PRN GT 06/08/25 00:45 06/08/25 19:21 650 MG Norepinephrine Bitartrate 250 ml @ 3.75 mls/hr Q24H IV 06/10/25 23:15 06/10/25 23:19 3.75 MLS/HR Examination: GENERAL:Abnormal, LUNGS:Abnormal (mechanically ventilated ), CVS:Normal, NEURO:Normal (off sedations, able to follow verbal commands ) laboratory and microbiology Laboratory Tests 06/12/25 03:20 Test 06/12/25 03:20 Range/Units Serum Glucose 112 H 74-106 mg/dL Problem List/Assessment/Plan Problem List/Assessment/Plan Cardiopulmonary arrest status post CPR with ROSC NSTEMI, rule out progressive coronary artery disease ?Infective endocarditis Coronary artery disease status post PTCA with multiple MORGAN Acute on chronic HFpEF, NYHA unspecified (patient intubated) Acute anemia status post PRBC transfusion Prolonged QTc interval Chronic kidney disease, now on hemodialysis Type 2 diabetes mellitus Plan/recommendations (Dr. Robison): Case discussed with . The patient came in status post cardiopulmonary arrest with CPR and return of spontaneous circulation. She went underwent a transthoracic echocardiogram which revealed an EF of 50% with a mobile vegetation at the base of the posterior mitral leaflet extending into the mid section of the posterior mitral leaflet. The patient then underwent a transesophageal echocardiogram which revealed a 2-3 mm vegetation in the inferior medial aspect of the base of the posterior mitral leaflet. A infectious disease consultation was recommended. The patient has been off of sedation and has been undergoing hemodialysis during this admission. Today, the patient is following all verbal commands. Patient currently mechanically ventilated and plans for CPAP trial today. Case discussed with . We will plan for coronary angiogram within the next 1-2 days if cleared from Infectious Disease and GI standpoint. Continue with close cardiac surveillance. Thank you for allowing us to care for this patient. Please call with any questions or concerns. Critical care time spent: 35 minutes. This medical document was created using an electronic medical record system with voice recognition software and computerized dictation system. Although this document has been carefully reviewed, there might still be some phonetic and typographical errors. Occasional wrong-word or ``sound-alike substitutions may have occurred due to the inherent limitations of voice recognition software. These areas are purely typographical due to imperfections of the software programs and do not reflect any compromise in the patient's medical care. Please read the chart carefully and recognize, using context, where these substitutions have occurred. Plan discussed with: Daughter, Other (bedside RN ) Dietary Evaluation Review Comments: 1. TF Nepro Carbsteady @ 3ml/hr x 24 hr along with Pro-stat 1 pk BID. Start @ 20ml/hr, increase 10ml/hr Q4H until goal is reached. TF at goal volume provides 100% energy & protein needs - 1496 kcal, 89gm protein, 523 ml free water 2. Water flush 240ml Q6H if allowed, adjust PRN 3. TPN if NPO > 7 days 4.Monitor NPO status, lab values, wt trends, I/O Expected Outcomes/Goals: To meet >75% estimated needs Lab values to improve Fu 2-3 days Date of Service: Jun 12, 2025 Billing Provider: TIANA ANDRADE Common Visit Codes: [id number] CARE-EACH +30MIN TIANA ANDRADE Jun 12, 2025 10:06
--- NOTE | 2025-06-12 10:43 | DVHPN2 ---
Progress Note - Dictate Date Seen: Jun 12, 2025 Medical Necessity Reason Pt with a Central, PICC or Fol: Yes The following are medically ne: Stevens Catheter Reason for stevens catheter: Strict I&O Subjective Ms. Miller is a 74 years old right-handed female with a history of hypertension, diabetes, coronary artery disease, heart attack, congestive heart failure, chronic kidney failure, bilateral eye blindness, she was brought to the [facility] on 06/02/2025 with a chief company of shortness breath. I have seen and examined the patient, I talked to her nurse, family is in the room with her. She is awake, she follows verbal commands, she moves the arms and legs Vitals look okay Blood culture, 06/06/2025: Blood culture, 06/02/2025: No glucose Urinalysis, 06/02/2025: WBC: 92, urine leukocyte esterase: 2+, urine WBC clumps: Present UDS, 06/04/2025: Negative WBC/HB/PLT/MCV, 06/08/2025: 10.5/9.7/299/90.1 BUN/CR, 06/08/2025: 58/3.17, 06/10/2025: 118/6.33 GFR, 06/10/2025: Six HGB A1c, 06/03/2025: 3.8 Lactic acid, 06/02/2025: 4.7, 2.1 TG/HDL/LDL/HDL, 06/03/2025: 99/1 5/49/34 GIRISH 06/04/2025: There appears to be a 2-3 mm vegetation in the inferior medial aspect of the base of the posterior mitral leaflet. It appears to be much smaller than on previously evaluated transthoracic echocardiogram. CT head, 06/02/2025: No intracranial hemorrhage or mass effect. Mild chronic microvascular ischemic changes. Bilateral orbital phthisis bulbi. vital signs Vital Sign Date Time Temp Pulse Resp B/P (MAP) Pulse Ox O2 Delivery O2 Flow Rate FiO2 06/12/25 10:30 74 16 155/72 (99) 100 06/12/25 10:10 30 06/12/25 10:00 Mechanical Ventilator+ 06/12/25 08:00 98.8 98.8 Total Intake and Output 06/11/25 06/11/25 06/12/25 15:00 23:00 07:00 Intake Total 51 ml 0 ml 260 ml Output Total 350 ml 450 ml Balance 51 ml -350 ml -190 ml medications Current Medications Medications Dose Ordered Sig/Rosa Route Start Time Stop Time Status Last Admin Dose Admin Pantoprazole Sodium 40 mg DAILY IV 06/03/25 10:00 06/12/25 09:47 40 MG Insulin Human Regular Q6HR SC 06/02/25 18:00 06/12/25 00:25 3 UNITS Dextrose 50 ml UD PRN IV 06/02/25 17:45 Diagnostic Test (Pha) 1 strip Q6HR 06/02/25 18:00 06/12/25 05:22 1 STRIP Vancomycin HCl 0 ml @ 0 mls/hr UD IV 06/03/25 14:30 Enteral Nutritional Formula 1,000 ml 30ML/HR GT 06/04/25 14:30 06/09/25 08:41 1,000 ML Amino Acid Protein 30 ml BID GT 06/04/25 22:00 06/12/25 09:48 30 ML Furosemide 40 mg BIDD IV 06/05/25 18:00 06/12/25 05:22 40 MG Meropenem 50 ml @ 17 mls/hr DAILY IV 06/06/25 16:45 06/12/25 09:47 17 MLS/HR Hydralazine HCl 10 mg Q6HP PRN IV 06/07/25 06:00 06/07/25 06:19 10 MG Acetaminophen 650 mg Q6HP PRN GT 06/08/25 00:45 06/08/25 19:21 650 MG Norepinephrine Bitartrate 250 ml @ 3.75 mls/hr Q24H IV 06/10/25 23:15 06/10/25 23:19 3.75 MLS/HR Epoetin Graham-epbx 10,000 unit MWF IA 06/12/25 10:30 objective The patient is well-nourished and well-developed with no distress. The patient is intubated MENTAL STATUS: Subjective CRANIAL NERVES: Eyes are cloudy. Normal conjugated eye movement. Sensorimotor examined in bilateral trigeminal distribution is fine No signs of facial weakness. There are gagging or coughing reflexes oral care SENSATION: Responds to light touch MOTOR: Normal tone in the upper and lower extremity. Normal muscle bulk. No fasciculations. She moves the arms and legs REFLEXES: Deep tendon reflexes are symmetrical. No pathological reflexes. CEREBELLAR/COORDINATION: Deferred GAIT/STATION: deferred laboratory and microbiology Laboratory Tests 06/12/25 03:20 Test 06/12/25 03:20 Range/Units Serum Glucose 112 H 74-106 mg/dL Problem List Coma Hypoxic encephalopathy Metabolic encephalopathy Toxic encephalopathy Status post CPR Cardiopulmonary arrest Urinary tract infection Sepsis Chronic kidney failure Possible endocarditis Assessment/Plan Monitoring Supportive treatment ICU care Follow up blood culture Follow up routine lab EEG Consider MR brain scan Stabilize vitals Respiratory support/vent management Oxygen IV antibiotics CPAP trial/extubation again More recommendation per clinical course This medical document was created using an electronic medical record system with [employer] dictation system. Although this document has been carefully reviewed, there may still be some phonetic and typographical errors. These areas are purely typographical due to imperfections of the software programs, and do not reflect any compromise in the patient's medical care. Prognosis guarded Dietary Evaluation Review Comments: 1. TF Nepro Carbsteady @ 3ml/hr x 24 hr along with Pro-stat 1 pk BID. Start @ 20ml/hr, increase 10ml/hr Q4H until goal is reached. TF at goal volume provides 100% energy & protein needs - 1496 kcal, 89gm protein, 523 ml free water 2. Water flush 240ml Q6H if allowed, adjust PRN 3. TPN if NPO > 7 days 4.Monitor NPO status, lab values, wt trends, I/O Expected Outcomes/Goals: To meet >75% estimated needs Lab values to improve Fu 2-3 days Plan discussed with: Other Critical Care Time(min): 30 JAYNE LUX MD Jun 12, 2025 10:43
--- NOTE | 2025-06-12 12:21 | DVHPN2 ---
Progress Note Date Seen: Jun 12, 2025 Medical Necessity Reason Pt with a Central, PICC or Fol: Yes The following are medically ne: Stevens Catheter Reason for stevens catheter: Strict I&O Subjective Patient reports: Feels better Objective vital signs Vital Sign Date Time Temp Pulse Resp B/P (MAP) Pulse Ox O2 Delivery O2 Flow Rate FiO2 06/12/25 12:00 98.4 85 16 121/70 (87) 99 98.4 06/12/25 12:00 30 06/12/25 10:00 Mechanical Ventilator+ Total Intake and Output 06/11/25 06/11/25 06/12/25 15:00 23:00 07:00 Intake Total 51 ml 0 ml 260 ml Output Total 350 ml 450 ml Balance 51 ml -350 ml -190 ml medications Current Medications Medications Dose Ordered Sig/Rosa Route Start Time Stop Time Status Last Admin Dose Admin Pantoprazole Sodium 40 mg DAILY IV 06/03/25 10:00 06/12/25 09:47 40 MG Insulin Human Regular Q6HR SC 06/02/25 18:00 06/12/25 00:25 3 UNITS Dextrose 50 ml UD PRN IV 06/02/25 17:45 Diagnostic Test (Pha) 1 strip Q6HR 06/02/25 18:00 06/12/25 11:52 1 STRIP Vancomycin HCl 0 ml @ 0 mls/hr UD IV 06/03/25 14:30 Enteral Nutritional Formula 1,000 ml 30ML/HR GT 06/04/25 14:30 06/09/25 08:41 1,000 ML Amino Acid Protein 30 ml BID GT 06/04/25 22:00 06/12/25 09:48 30 ML Furosemide 40 mg BIDD IV 06/05/25 18:00 06/12/25 05:22 40 MG Meropenem 50 ml @ 17 mls/hr DAILY IV 06/06/25 16:45 06/12/25 09:47 17 MLS/HR Hydralazine HCl 10 mg Q6HP PRN IV 06/07/25 06:00 06/07/25 06:19 10 MG Acetaminophen 650 mg Q6HP PRN GT 06/08/25 00:45 06/08/25 19:21 650 MG Norepinephrine Bitartrate 250 ml @ 3.75 mls/hr Q24H IV 06/10/25 23:15 06/10/25 23:19 3.75 MLS/HR Epoetin Graham-epbx 10,000 unit MWF SC 06/12/25 10:30 Examination: LUNGS:Abnormal laboratory and microbiology Laboratory Tests 06/12/25 03:20 Test 06/12/25 03:20 Range/Units Serum Glucose 112 H 74-106 mg/dL Microbiology Date/Time Source Procedure Growth Status 06/06/25 08:45 Blood Blood Culture - Final NO GROWTH AFTER 5 DAYS OF INCUBATION. Complete 06/03/25 17:20 Nose MRSA Screen - Final Complete 06/02/25 08:54 Sputum Gram Stain - Final Complete 06/02/25 08:54 Respiratory Culture - Final Proteus mirabilis - ESBL Complete 06/02/25 08:49 Voided Urine Urine Culture - Final Complete Problem List/Assessment/Plan Problem List/Assessment/Plan Chronic kidney disease stage 5 with progression to end-stage renal disease Coronary artery disease Cardiac arrest Acute respiratory failure Diabetes Hypertension anemia due to ckd HD today metabolic clearence needs nursing home HD placement in unit, goes to [facility] but will need to establish dialysis unit epogen 3x a week renal diet possible extubation today Plan discussed with: Patient My Orders My Orders Orders - CATHRYN SOLOMON MD Procedure Category Date Status Time Hemodialysis Orders ORDERS 06/12/25 Transmitted 10:23 Dialysis Nursing FRANK 06/12/25 In Process Message 10:23 Iron Panel LAB 06/12/25 Logged 10:23 Ferritin LAB 06/12/25 Logged 10:23 Document Fluid Input FRANK 06/12/25 In Process And Outpu 10:23 Epoetin Graham-Epbx PHA 06/12/25 In Process (Retacrit) 10:30 Dietary Evaluation Review Comments: 1. TF Nepro Carbsteady @ 3ml/hr x 24 hr along with Pro-stat 1 pk BID. Start @ 20ml/hr, increase 10ml/hr Q4H until goal is reached. TF at goal volume provides 100% energy & protein needs - 1496 kcal, 89gm protein, 523 ml free water 2. Water flush 240ml Q6H if allowed, adjust PRN 3. TPN if NPO > 7 days 4.Monitor NPO status, lab values, wt trends, I/O Expected Outcomes/Goals: To meet >75% estimated needs Lab values to improve Fu 2-3 days Critical Care Time (mins): 33 CATHRYN SOLOMON MD Jun 12, 2025 12:21
[2025-06-12 12:44] LABS: Iron 25.0 ug/dL (50-170)
[2025-06-12 12:48] LABS: Total Iron Binding Capacity 234.0 ug/dL (250-425)
[2025-06-12] MEDS: ALBUMIN 25% 100 ML IV SCH (13:44)
[2025-06-12] MEDS: EPOETIN ALFA-EPBX 10,000 UNIT/1ML VIAL SC SCH (14:23)
[2025-06-12 16:19] LABS: Base Excess 3.2 mmol/L (-2.0-3.0)
[2025-06-12] MEDS: IPRATROPIUM BROM 0.5 MG/2.5ML INH SOL NEB ONE (18:01)
[2025-06-12] MEDS: ALBUTEROL SULF 2.5 MG/0.5ML(0.5%) NEB SOLN NEB ONE (18:02)
[2025-06-12] MEDS: ALBUTEROL SULF 2.5 MG/0.5ML(0.5%) NEB SOLN NEB SCH (18:02)
[2025-06-12] MEDS: IPRATROPIUM BROM 0.5 MG/2.5ML INH SOL NEB SCH (18:02)
--- NOTE | 2025-06-12 20:14 | DVHPNRES ---
Progress Note Date Seen: Jun 12, 2025 Resident Creating Document: WARNER SANCHEZ RESIDENT Medical Necessity Reason Pt with a Central, PICC or Fol: Yes The following are medically ne: Stevens Catheter Reason for stevens catheter: Strict I&O Subjective Review of Systems 06/12 Patient seen and examined at the bedside. Patient responds to voice commands and opening her eyes. Bilateral improved lung sounds. ABG reviewed. Patient was put on CPAP trial in the morning which she failed. She underwent dialysis in the afternoon and was again put on a CPAP trial for 1 hour. Patient had no respiratory distress, no hemodynamic instability which ABG was done and showed mixed respiratory and metabolic alkalosis, and she met parameters for extubation. Patient was extubated in the evening and put on oxygen via simple mask. No respiratory distress was noted. urine output of about 500 mL per shift. Objective vital signs Vital Sign Date Time Temp Pulse Resp B/P (MAP) Pulse Ox O2 Delivery O2 Flow Rate FiO2 06/12/25 18:45 93 33 122/58 (79) 95 06/12/25 18:00 Cool Aerosol 6 30 30 06/12/25 16:00 98.8 98.8 Total Intake and Output 06/11/25 06/11/25 06/12/25 15:00 23:00 07:00 Intake Total 51 ml 0 ml 260 ml Output Total 350 ml 450 ml Balance 51 ml -350 ml -190 ml medications Current Medications Medications Dose Ordered Sig/Rosa Route Start Time Stop Time Status Last Admin Dose Admin Pantoprazole Sodium 40 mg DAILY IV 06/03/25 10:00 06/12/25 09:47 40 MG Insulin Human Regular Q6HR SC 06/02/25 18:00 06/12/25 17:48 2 UNITS Dextrose 50 ml UD PRN IV 06/02/25 17:45 Diagnostic Test (Pha) 1 strip Q6HR 06/02/25 18:00 06/12/25 17:36 1 STRIP Vancomycin HCl 0 ml @ 0 mls/hr UD IV 06/03/25 14:30 Enteral Nutritional Formula 1,000 ml 30ML/HR GT 06/04/25 14:30 06/09/25 08:41 1,000 ML Amino Acid Protein 30 ml BID GT 06/04/25 22:00 06/12/25 09:48 30 ML Furosemide 40 mg BIDD IV 06/05/25 18:00 06/12/25 17:38 40 MG Meropenem 50 ml @ 17 mls/hr DAILY IV 06/06/25 16:45 06/12/25 09:47 17 MLS/HR Hydralazine HCl 10 mg Q6HP PRN IV 06/07/25 06:00 06/07/25 06:19 10 MG Acetaminophen 650 mg Q6HP PRN GT 06/08/25 00:45 06/08/25 19:21 650 MG Norepinephrine Bitartrate 250 ml @ 3.75 mls/hr Q24H IV 06/10/25 23:15 06/10/25 23:19 3.75 MLS/HR Epoetin Graham-epbx 10,000 unit MWF SC 06/12/25 10:30 06/12/25 14:23 10,000 UNIT Albumin Human 100 ml @ 100 mls/hr Q8H IV 06/12/25 13:30 06/12/25 22:29 06/12/25 13:44 100 MLS/HR Albuterol 2.5 mg Q6HR NEB 06/12/25 18:00 06/12/25 18:02 2.5 MG Ipratropium [place] 0.5 mg Q6HR NEB 06/12/25 18:00 06/12/25 18:02 0.5 MG Iron Sucrose 110 ml @ 110 mls/hr DAILY@1200 IV 06/12/25 20:00 06/16/25 12:59 Examination neurological: Patient is off sedation and extubated, good cough reflex. Gen - mild conjunctival pallor, no cyanosis, no clubbing, no LAD, no edema . Skin - Patients skin is warm and dry. HEENT - normocephalic, atraumatic, moist mucous membranes. Neck - no LAD, no JVD Pulmonary - B/L equal breath sounds, no significant rales, no wheezing, no stridor. cardiovascular - regular S1,S2 heard, no added sounds, systolic apical murmur heard. peripheral pulses normal radial 2+, pedal 1+. capillary refill normal <2 secs. GI - soft, nontender abdomen. Bowel sounds normoactive laboratory and microbiology Laboratory Tests 06/12/25 03:20 Test 06/12/25 03:20 Range/Units Serum Glucose 112 H 74-106 mg/dL Microbiology Date/Time Source Procedure Growth Status 06/06/25 08:45 Blood Blood Culture - Final NO GROWTH AFTER 5 DAYS OF INCUBATION. Complete 06/03/25 17:20 Nose MRSA Screen - Final Complete 06/02/25 08:54 Sputum Gram Stain - Final Complete 06/02/25 08:54 Respiratory Culture - Final Proteus mirabilis - ESBL Complete 06/02/25 08:49 Voided Urine Urine Culture - Final Complete Problem List/Assessment/Plan Problem List/Assessment/Plan Neurology Acute metabolic encephalopathy from likely hypoxic respiratory failure, resolved - patient and responsive to voice commands Respiratory Acute on chronic hypoxic respiratory failure likely from pulmonary edema Pulmonary edema likely due to mitral insufficiency/CKD Pneumonia due to Proteus mirabilis ESBL - on oxygen via simple mask - IV Lasix 40 mg b.i.d. - until 06/09 net negative fluid balance of -6.4 L - ABG shows mixed respiratory alkalosis with metabolic alkalosis - chest x-ray shows no significant pulmonary opacities - sputum cultures show growth of Proteus mirabilis ESBL and patient is on meropenem Cardiovascular S/p cardiopulmonary arrest with ROSC [id number] mitral regurgitation Possible infective endocarditis Moderate aortic stenosis NSTEMI likely type 2 from demand ischemia/cardiac arrest h/o CAD s/p PCI with MORGAN - on vancomycin and meropenam - GIRISH shows [id number] mitral insufficiency, 2-3 mm vegetation in the inferior medial aspect of the base of the posterior mitral leaflet - LVEF 55% - Lasix 40 mg b.i.d. IV Nephrology MICAELA on CKD likely due to VMN CKD stage 5, not in dialysis S/p tunneled dialysis catheter insertion - on hemodialysis since 06/06 Infectious disease Possible infective endocarditis Urinary tract infection Pneumonia due to Proteus mirabilis ESBL - on vancomycin and meropenem - initial and repeat blood cultures showed no growth after 5 days - preliminary urinary cultures show growth [place] [address] colony-forming units - MRSA screen negative - respiratory culture showed growth of Proteus mirabilis ESBL, on meropenem Endocrinology Type 2 diabetes mellitus - on tube feedings and insulin sliding scale Gastroenterology Possible upper GI bleed - dark stool noticed and stool occult blood positive - heparin stopped - monitor H&H DVT prophylaxis stopped due to stool occult blood positive PUD prophylaxis: On Protonix right midline placed on 06/09 Stevens's catheter placed on 06/02 Right subclavian tunneled dialysis catheter placed on 06/06 Extubated 06/12 Goals of care discussed with the patient's daughter at bedside. Code status: Full code Critical care time excluding procedures including cpap trial: 81 minutes Plan discussed with Dr. Jordan Plan discussed with: Daughter, Other (RN Rach) My Orders My Orders Orders - WARNER SANCHEZ Procedure Category Date Status Time Cpap Trial For Am ORDERS 06/12/25 Transmitted 08:11 Albuterol Medneb PHA 06/12/25 In Process (Ventolin Medneb) 18:00 Ipratropium Medneb PHA 06/12/25 In Process (Atrovent Medneb) 18:00 Chest Xray 1 View XY 06/12/25 Logged 19:31 Epinephrine Hcl PHA 06/12/25 Logged (Racenephrine) 20:15 Dietary Evaluation Review Comments: 1. TF Nepro Carbsteady @ 3ml/hr x 24 hr along with Pro-stat 1 pk BID. Start @ 20ml/hr, increase 10ml/hr Q4H until goal is reached. TF at goal volume provides 100% energy & protein needs - 1496 kcal, 89gm protein, 523 ml free water 2. Water flush 240ml Q6H if allowed, adjust PRN 3. TPN if NPO > 7 days 4.Monitor NPO status, lab values, wt trends, I/O Expected Outcomes/Goals: To meet >75% estimated needs Lab values to improve Fu 2-3 days Date of Service: Jun 12, 2025 Billing Provider: JEREMIAS JORDNA MD Common Visit Codes: [id number] CARE 30-74 MIN, [id number] CARE-EACH +30MIN WARNER SANCHEZ Jun 12, 2025 20:14 JEREMIAS JORDAN MD Jun 13, 2025 14:08
[2025-06-12] MEDS: EPINEPHrine HCL 0.5 ML NEB ONE (20:18)
[2025-06-12] MEDS: EPINEPHrine HCL 0.5 ML NEB NEB ONE (20:21)
[2025-06-12] MEDS: SODIUM CHL 0.9% 1000 ML BAG XX ONE (20:35)
[2025-06-12] MEDS: IRON SUCROSE COMPLEX 110 ML IV SCH (20:52)
[2025-06-12] MEDS: LORazepam 2MG/ML-1ML VIAL IV PRN (21:01)
[2025-06-12] MEDS: LORazepam 2MG/ML-1ML VIAL ONE (21:01)
[2025-06-13] VITALS (106 sets, daily range): BP systolic 88–151; BP diastolic 40–69; PULSE 63–102; RESP 13–45; TEMP 97.6–98.7; O2SAT 89–100
--- NOTE | 2025-06-13 00:30 | DVHEEG2 ---
Neurology EEG Procedural Note Procedural Note EXAM DATE: 06/12/2025 REFERRING DOCTOR: Dr. Lux TECHNIQUE: Eighteen channels of EEG, 2 channels of EOG, and 1 channel of EKG were recorded using the [employer] 10/20 system. CLINICAL DATA: The patient was referred for an EEG evaluation for the evidence of seizure disorder. MEDICATIONS: See the chart BACKGROUND ACTIVITY: The record showed moderate amount of low to medium voltage polymorphic delta and theta activity over both hemispheres, that was reactive to external stimuli ACTIVATION: Hyperventilation: Not done Photic Stimulation: Not done Sleep: Nonresponsiveness IMPRESSION: This is a moderately abnormal EEG, this EEG is seen in moderate cerebral dysfunction due to metabolic/hypoxic encephalopathy or medication effect, please correlate clinically. The EKG channel showed an irregular heart rate of 90 per minute [place] [address] JAYNE LUX MD Jun 13, 2025 00:30
[2025-06-13 03:50] LABS: Hematocrit 26.2 % (36.0-46.0); Hemoglobin 8.8 g/dL (12.2-16.2); Mean Corpuscular Hemoglobin 30.0 pg (28.0-32.0); Mean Corpuscular Volume 88.9 fL (80.0-100.0); Nucleated Red Blood Cells % 0.3 %
[2025-06-13 03:55] LABS: Chloride 100 mmol/L (98-107); Potassium 3.6 mmol/L (3.5-5.1); Sodium 141 mmol/L (136-145)
[2025-06-13 03:56] LABS: Anion Gap 13 (5-15); Carbon Dioxide 28 mmol/L (20-31)
[2025-06-13 03:57] LABS: Calcium 10.0 mg/dL (8.7-10.4)
[2025-06-13 04:02] LABS: BUN/Creatinine Ratio 12.4 (10.0-20.0)
[2025-06-13 04:06] LABS: Blood Urea Nitrogen 37 mg/dL (9-23); Glucose 120 mg/dL (74-106)
--- NOTE | 2025-06-13 05:28 | DVH ---
CHEST RADIOGRAPH Indication: post extubation Technique: Single frontal view of the chest was obtained Comparison: XY CHEST XRAY 1 VIEW on DOS: 06/12/25 FINDINGS: Lines and Tubes: There is a right central venous catheter which terminates in the right atrium. The e nteric tube and endotracheal tube have been removed. Lungs: Bilateral airspace disease similar to prior study. Pleura: No effusion. No pneumothorax. Cardiomediastinal contours: Stable Cardiovascular silhouette. Bones: No acute osseous abnormality. IMPRESSION: 1. Removal of the endotracheal and enteric tube. Right central venous catheter unchanged in position . 2. Stable bilateral airspace disease.
[2025-06-13] MEDS: ACETAMINOPHEN 650 MG RECT SUPP PR PRN (08:37)
[2025-06-13] MEDS: ACETAMINOPHEN 650 MG RECT SUPP PR ONE (08:37)
--- NOTE | 2025-06-13 10:14 | DVH ---
CHEST RADIOGRAPH Indication: s/p extubation Technique: Single frontal view of the chest was obtained Comparison: XY CHEST XRAY 1 VIEW on DOS: 06/13/25, XY CHEST XRAY 1 VIEW on DOS: 06/12/25, XY CHEST XRAY 1 VIEW on DOS: 06/11/25, XY CHEST XRAY 1 VIEW on DOS: 06/10/25, XY CHEST XRAY 1 VIEW on DOS: 06/09/25 FINDINGS: Lines and Tubes: There is a right central venous catheter which terminates in the right atrium. Lungs: Bilateral airspace disease similar to prior study. Pleura: No effusion. No pneumothorax. Cardiomediastinal contours: Stable Cardiovascular silhouette. Bones: No acute osseous abnormality. IMPRESSION: No interval improvement.
--- NOTE | 2025-06-13 10:40 | DVHPN2 ---
Progress Note - Dictate Date Seen: Jun 13, 2025 Medical Necessity Reason Pt with a Central, PICC or Fol: Yes The following are medically ne: Stevens Catheter Reason for stevens catheter: Strict I&O Subjective Ms. Miller is a 74 years old right-handed female with a history of hypertension, diabetes, coronary artery disease, heart attack, congestive heart failure, chronic kidney failure, bilateral eye blindness, she was brought to the [facility] on 06/02/2025 with a chief company of shortness breath. I have seen and examined the patient, I talked to her nurse, family is in the room with her. She is awake, extubated on 06/12/2025, alert, oriented to person, place, she knows year and the month, socially appropriate According to her daughter, the patient has no light perception Blood culture, 06/06/2025: Blood culture, 06/02/2025: No glucose Urinalysis, 06/02/2025: WBC: 92, urine leukocyte esterase: 2+, urine WBC clumps: Present UDS, 06/04/2025: Negative WBC/HB/PLT/MCV, 06/08/2025: 10.5/9.7/299/90.1 BUN/CR, 06/08/2025: 58/3.17, 06/10/2025: 118/6.33 GFR, 06/10/2025: Six HGB A1c, 06/03/2025: 3.8 Lactic acid, 06/02/2025: 4.7, 2.1 TG/HDL/LDL/HDL, 06/03/2025: 99/1 5/49/34 GIRISH 06/04/2025: There appears to be a 2-3 mm vegetation in the inferior medial aspect of the base of the posterior mitral leaflet. It appears to be much smaller than on previously evaluated transthoracic echocardiogram. CT head, 06/02/2025: No intracranial hemorrhage or mass effect. Mild chronic microvascular ischemic changes. Bilateral orbital phthisis bulbi. vital signs Vital Sign Date Time Temp Pulse Resp B/P (MAP) Pulse Ox O2 Delivery O2 Flow Rate FiO2 06/13/25 10:15 79 23 105/57 (73) 96 06/13/25 10:00 Nasal Cannula* 3 32 06/13/25 07:30 98.3 98.3 Total Intake and Output 06/12/25 06/12/25 06/13/25 15:00 23:00 07:00 Intake Total 51 ml 280 ml Output Total 500 ml 350 ml 700 ml Balance -449 ml -70 ml -700 ml medications Current Medications Medications Dose Ordered Sig/Rosa Route Start Time Stop Time Status Last Admin Dose Admin Pantoprazole Sodium 40 mg DAILY IV 06/03/25 10:00 06/13/25 09:50 40 MG Dextrose 50 ml UD PRN IV 06/02/25 17:45 Diagnostic Test (Pha) 1 strip Q6HR 06/02/25 18:00 06/13/25 05:40 1 STRIP Furosemide 40 mg BIDD IV 06/05/25 18:00 06/13/25 05:41 40 MG Meropenem 50 ml @ 17 mls/hr DAILY IV 06/06/25 16:45 06/13/25 09:50 17 MLS/HR Hydralazine HCl 10 mg Q6HP PRN IV 06/07/25 06:00 06/07/25 06:19 10 MG Epoetin Graham-epbx 10,000 unit MWF SC 06/12/25 10:30 06/12/25 14:23 10,000 UNIT Albuterol 2.5 mg Q6HR NEB 06/12/25 18:00 06/13/25 06:47 2.5 MG Ipratropium [place] 0.5 mg Q6HR NEB 06/12/25 18:00 06/13/25 06:48 0.5 MG Iron Sucrose 110 ml @ 110 mls/hr DAILY@1200 IV 06/12/25 20:00 06/16/25 12:59 06/12/25 20:52 110 MLS/HR Lorazepam 1 mg Q6HP PRN IV 06/12/25 20:45 06/12/25 21:01 1 MG Acetaminophen 650 mg Q6HP PRN LA 06/13/25 08:15 06/13/25 08:37 650 MG objective The patient is well-nourished and well-developed with no distress. MENTAL STATUS: Subjective CRANIAL NERVES: Eyes are cloudy. Normal conjugated eye movement. Sensorimotor examined in bilateral trigeminal distribution is fine No signs of facial weakness. There are gagging or coughing reflexes oral care SENSATION: Responds to light touch MOTOR: Normal tone in the upper and lower extremity. Normal muscle bulk. No fasciculations. She moves the arms and legs REFLEXES: Deep tendon reflexes are symmetrical. No pathological reflexes. CEREBELLAR/COORDINATION: Deferred GAIT/STATION: deferred laboratory and microbiology Laboratory Tests 06/13/25 03:03 Test 06/13/25 03:03 Range/Units Serum Glucose 120 H 74-106 mg/dL Problem List Coma Hypoxic encephalopathy Metabolic encephalopathy Toxic encephalopathy Status post CPR Cardiopulmonary arrest Urinary tract infection Sepsis Chronic kidney failure Possible endocarditis Assessment/Plan Monitoring Supportive treatment ICU care Follow up blood culture Follow up routine lab EEG Consider MR brain scan Stabilize vitals Respiratory support/vent management Oxygen IV antibiotics CPAP trial/extubation again More recommendation per clinical course This medical document was created using an electronic medical record system with [employer] dictation system. Although this document has been carefully reviewed, there may still be some phonetic and typographical errors. These areas are purely typographical due to imperfections of the software programs, and do not reflect any compromise in the patient's medical care. Prognosis poor Dietary Evaluation Review Comments: 1. TF Nepro Carbsteady @ 3ml/hr x 24 hr along with Pro-stat 1 pk BID. Start @ 20ml/hr, increase 10ml/hr Q4H until goal is reached. TF at goal volume provides 100% energy & protein needs - 1496 kcal, 89gm protein, 523 ml free water 2. Water flush 240ml Q6H if allowed, adjust PRN 3. TPN if NPO > 7 days 4.Monitor NPO status, lab values, wt trends, I/O Expected Outcomes/Goals: To meet >75% estimated needs Lab values to improve Fu 2-3 days Plan discussed with: Patient, Daughter, Other JAYNE LUX MD Jun 13, 2025 10:40
[2025-06-13] MEDS: MIDODRINE HCL 10 MG TAB PO SCH (12:45)
--- NOTE | 2025-06-13 13:23 | DVHPN2 ---
Progress Note Date Seen: Jun 13, 2025 Medical Necessity Reason Pt with a Central, PICC or Fol: Yes The following are medically ne: Stevens Catheter Reason for stevens catheter: Strict I&O Subjective Patient reports: Feels better Review of Systems: Deferred Objective vital signs Vital Sign Date Time Temp Pulse Resp B/P (MAP) Pulse Ox O2 Delivery O2 Flow Rate FiO2 06/13/25 13:00 82 37 100/47 (64) 97 06/13/25 12:07 Nasal Cannula 2.0 06/13/25 12:07 28 06/13/25 11:00 97.6 97.6 Total Intake and Output 06/12/25 06/12/25 06/13/25 14:59 22:59 06:59 Intake Total 51 ml 280 ml Output Total 500 ml 350 ml 700 ml Balance -449 ml -70 ml -700 ml medications Current Medications Medications Dose Ordered Sig/Rosa Route Start Time Stop Time Status Last Admin Dose Admin Pantoprazole Sodium 40 mg DAILY IV 06/03/25 10:00 06/13/25 09:50 40 MG Dextrose 50 ml UD PRN IV 06/02/25 17:45 Diagnostic Test (Pha) 1 strip Q6HR 06/02/25 18:00 06/13/25 11:40 1 STRIP Furosemide 40 mg BIDD IV 06/05/25 18:00 06/13/25 05:41 40 MG Meropenem 50 ml @ 17 mls/hr DAILY IV 06/06/25 16:45 06/13/25 09:50 17 MLS/HR Hydralazine HCl 10 mg Q6HP PRN IV 06/07/25 06:00 06/07/25 06:19 10 MG Epoetin Graham-epbx 10,000 unit MWF SC 06/12/25 10:30 06/12/25 14:23 10,000 UNIT Albuterol 2.5 mg Q6HR NEB 06/12/25 18:00 06/13/25 12:05 2.5 MG Ipratropium [place] 0.5 mg Q6HR NEB 06/12/25 18:00 06/13/25 12:05 0.5 MG Iron Sucrose 110 ml @ 110 mls/hr DAILY@1200 IV 06/12/25 20:00 06/16/25 12:59 06/13/25 11:40 110 MLS/HR Lorazepam 1 mg Q6HP PRN IV 06/12/25 20:45 06/12/25 21:01 1 MG Acetaminophen 650 mg Q6HP PRN [place] 06/13/25 08:15 06/13/25 08:37 650 MG Midodrine 5 mg TID@0600,1200,1800 PO 06/13/25 12:45 Examination: GENERAL:Normal, LUNGS:Normal, SKIN:Normal laboratory and microbiology Laboratory Tests 06/13/25 03:03 Test 06/13/25 03:03 Range/Units Serum Glucose 120 H 74-106 mg/dL Microbiology Date/Time Source Procedure Growth Status 06/06/25 08:45 Blood Blood Culture - Final NO GROWTH AFTER 5 DAYS OF INCUBATION. Complete 06/03/25 17:20 Nose MRSA Screen - Final Complete 06/02/25 08:54 Sputum Gram Stain - Final Complete 06/02/25 08:54 Respiratory Culture - Final Proteus mirabilis - ESBL Complete 06/02/25 08:49 Voided Urine Urine Culture - Final Complete Problem List/Assessment/Plan Problem List/Assessment/Plan Chronic kidney disease stage 5 with progression to end-stage renal disease Coronary artery disease Cardiac arrest Acute respiratory failure extubated Diabetes Hypertension anemia due to ckd extubated yesterday low bp but map 60-65 midodrine ordered if can swallow. if BP remains low rec levophed HD tomorrow [facility], goes to [place] but will need to establish dialysis unit with [facility] outpatient. Family wants to do home hemo after training epogen 3x a week renal diet Plan discussed with: Patient My Orders My Orders Orders - CATHRYN SOLOMON MD Procedure Category Date Status Time Iron Sucrose Complex PHA 06/12/25 In Process (Venofer) 20:00 Midodrine Tablet PHA 06/13/25 In Process (Proamatine Tablet) 12:45 Dietary Evaluation Review Comments: 1. TF Nepro Carbsteady @ 3ml/hr x 24 hr along with Pro-stat 1 pk BID. Start @ 20ml/hr, increase 10ml/hr Q4H until goal is reached. TF at goal volume provides 100% energy & protein needs - 1496 kcal, 89gm protein, 523 ml free water 2. Water flush 240ml Q6H if allowed, adjust PRN 3. TPN if NPO > 7 days 4.Monitor NPO status, lab values, wt trends, I/O Expected Outcomes/Goals: To meet >75% estimated needs Lab values to improve Fu 2-3 days CATHRYN SOLOMON MD Jun 13, 2025 13:23
[2025-06-13] MEDS ORDERED: LORazepam 2MG/ML-1ML VIAL IV PRN (14:15)
[2025-06-13] MEDS ORDERED: VANCOMYCIN PER PHARMACY 0 MG IV SCH (14:30)
--- NOTE | 2025-06-13 14:39 | DVHPN2 ---
Consult Progress Note Subjective Other Systems: Patient in normal sinus rhythm at time of assessment. Patient is now extubated Objective vital signs Vital Sign Date Time Temp Pulse Resp B/P (MAP) Pulse Ox O2 Delivery O2 Flow Rate FiO2 06/13/25 14:15 86 31 120/52 (74) 99 06/13/25 14:00 Nasal Cannula* 3 32 06/13/25 11:00 97.6 97.6 Total Intake and Output 06/12/25 06/12/25 06/13/25 15:00 23:00 07:00 Intake Total 51 ml 280 ml Output Total 500 ml 350 ml 700 ml Balance -449 ml -70 ml -700 ml medications Current Medications Medications Dose Ordered Sig/Rosa Route Start Time Stop Time Status Last Admin Dose Admin Pantoprazole Sodium 40 mg DAILY IV 06/03/25 10:00 06/13/25 09:50 40 MG Dextrose 50 ml UD PRN IV 06/02/25 17:45 Diagnostic Test (Pha) 1 strip Q6HR 06/02/25 18:00 06/13/25 11:40 1 STRIP Furosemide 40 mg BIDD IV 06/05/25 18:00 06/13/25 05:41 40 MG Meropenem 50 ml @ 17 mls/hr DAILY IV 06/06/25 16:45 06/13/25 09:50 17 MLS/HR Hydralazine HCl 10 mg Q6HP PRN IV 06/07/25 06:00 06/07/25 06:19 10 MG Epoetin Graham-epbx 10,000 unit MWF SC 06/12/25 10:30 06/12/25 14:23 10,000 UNIT Albuterol 2.5 mg Q6HR NEB 06/12/25 18:00 06/13/25 12:05 2.5 MG Ipratropium [place] 0.5 mg Q6HR NEB 06/12/25 18:00 06/13/25 12:05 0.5 MG Iron Sucrose 110 ml @ 110 mls/hr DAILY@1200 IV 06/12/25 20:00 06/16/25 12:59 06/13/25 11:40 110 MLS/HR Acetaminophen 650 mg Q6HP PRN NV 06/13/25 08:15 06/13/25 08:37 650 MG Lorazepam 0.25 mg Q6HP PRN IV 06/13/25 14:15 UNV Enteral Nutritional Formula 1,000 ml 30ML/HR GT 06/13/25 14:15 UNV Vancomycin HCl 0 ml @ 0 mls/hr UD IV 06/13/25 14:30 UNV Examination: GENERAL:Abnormal (Generalized weakness), LUNGS:Normal, CVS:Normal, NEURO:Normal laboratory and microbiology Laboratory Tests 06/13/25 03:03 Test 06/13/25 03:03 Range/Units Serum Glucose 120 H 74-106 mg/dL Problem List/Assessment/Plan Problem List/Assessment/Plan Cardiopulmonary arrest status post CPR with ROSC NSTEMI, rule out progressive coronary artery disease ?Infective endocarditis Coronary artery disease status post PTCA with multiple MORGAN Acute on chronic HFpEF, NYHA unspecified (patient intubated) Acute anemia status post PRBC transfusion Prolonged QTc interval Chronic kidney disease, now on hemodialysis Type 2 diabetes mellitus Plan/recommendations (Dr. Robison): Case discussed with . The patient came in status post cardiopulmonary arrest with CPR and return of spontaneous circulation. She went underwent a transthoracic echocardiogram which revealed an EF of 50% with a mobile vegetation at the base of the posterior mitral leaflet extending into the mid section of the posterior mitral leaflet. The patient then underwent a transesophageal echocardiogram which revealed a 2-3 mm vegetation in the inferior medial aspect of the base of the posterior mitral leaflet. A infectious disease consultation was recommended. The patient has been off of sedation and has been undergoing hemodialysis during this admission. The patient is now extubated. Case discussed with . We will plan for coronary angiogram within the next 1-2 days if cleared from Infectious Disease and GI standpoint. Continue with close cardiac surveillance. Thank you for allowing us to care for this patient. Please call with any questions or concerns. Critical care time spent: 35 minutes. This medical document was created using an electronic medical record system with voice recognition software and computerized dictation system. Although this document has been carefully reviewed, there might still be some phonetic and typographical errors. Occasional wrong-word or ``sound-alike substitutions may have occurred due to the inherent limitations of voice recognition software. These areas are purely typographical due to imperfections of the software programs and do not reflect any compromise in the patient's medical care. Please read the chart carefully and recognize, using context, where these substitutions have occurred. Plan discussed with: Patient, Daughter, Other (Bedside RN) Dietary Evaluation Review Comments: 1. TF Nepro Carbsteady @ 3ml/hr x 24 hr along with Pro-stat 1 pk BID. Start @ 20ml/hr, increase 10ml/hr Q4H until goal is reached. TF at goal volume provides 100% energy & protein needs - 1496 kcal, 89gm protein, 523 ml free water 2. Water flush 240ml Q6H if allowed, adjust PRN 3. TPN if NPO > 7 days 4.Monitor NPO status, lab values, wt trends, I/O Expected Outcomes/Goals: To meet >75% estimated needs Lab values to improve Fu 2-3 days Date of Service: Jun 13, 2025 Billing Provider: TIANA ANDRADE Common Visit Codes: 33066-[id number] CARE 30-74 MIN TIANA ANDRADE Jun 13, 2025 14:39
[2025-06-13] MEDS: VANCOMYCIN 500mg/100mL 100 ML IV ONE (17:29)
--- NOTE | 2025-06-13 17:58 | DVH ---
CHEST RADIOGRAPH Indication: NG Tube placement Technique: Single frontal view of the chest was obtained COMPARISON: XY CHEST XRAY 1 VIEW on DOS: 06/13/25, XY CHEST XRAY 1 VIEW on DOS: 06/13/25, XY CHEST XRAY 1 VIEW on DOS: 06/12/25, XY CHEST XRAY 1 VIEW on DOS: 06/11/25, XY CHEST XRAY 1 VIEW on DOS: 06/10/25 FINDINGS: Lines and Tubes: Enteric tube terminates in the stomach. Right-sided central venous catheter termina lewis in the right atrium. Lungs: Probable mild interstitial pulmonary edema. Pleura: No effusion. No pneumothorax. Cardiomediastinal contours: Unremarkable Bones: Unremarkable IMPRESSION: 1. Probable mild interstitial pulmonary edema. 2. Lines and tubes as above.
--- NOTE | 2025-06-13 20:31 | DVHPNRES ---
Progress Note Date Seen: Jun 13, 2025 Resident Creating Document: JHJanessaJWARNER Braun RESIDENT Medical Necessity Reason Pt with a Central, PICC or Fol: Yes The following are medically ne: Stevens Catheter Reason for stevens catheter: Strict I&O Subjective Review of Systems 06/13 Patient seen and examined at the bedside. Patient was extubated yesterday in the evening, had mild stridor following which racemic epinephrine was given which relieved the respiratory distress. Overnight patient did not have any respiratory distress with a few episodes of respiratory rate going up into the low 30s but mostly remained between 25-30. Patient continued to be on oxygen via simple mask throughout the night and was transitioned to nasal cannula in the morning at 3 L/min maintaining oxygen saturation above 95%. Overnight patient did not have any fevers, blood pressure remained below 130 with a episodes ranging up to 150. Objective vital signs Vital Sign Date Time Temp Pulse Resp B/P (MAP) Pulse Ox O2 Delivery O2 Flow Rate FiO2 06/13/25 20:29 123/61 06/13/25 19:15 92 29 96 06/13/25 18:33 Nasal Cannula* 3 32 06/13/25 11:00 97.6 97.6 Total Intake and Output 06/12/25 06/12/25 06/13/25 15:00 23:00 07:00 Intake Total 51 ml 280 ml Output Total 500 ml 350 ml 700 ml Balance -449 ml -70 ml -700 ml medications Current Medications Medications Dose Ordered Sig/Rosa Route Start Time Stop Time Status Last Admin Dose Admin Pantoprazole Sodium 40 mg DAILY IV 06/03/25 10:00 06/13/25 09:50 40 MG Dextrose 50 ml UD PRN IV 06/02/25 17:45 Diagnostic Test (Pha) 1 strip Q6HR 06/02/25 18:00 06/13/25 20:29 1 STRIP Furosemide 40 mg BIDD IV 06/05/25 18:00 06/13/25 20:29 40 MG Meropenem 50 ml @ 17 mls/hr DAILY IV 06/06/25 16:45 06/13/25 09:50 17 MLS/HR Hydralazine HCl 10 mg Q6HP PRN IV 06/07/25 06:00 06/07/25 06:19 10 MG Epoetin Graham-epbx 10,000 unit MWF LA 06/12/25 10:30 06/12/25 14:23 10,000 UNIT Albuterol 2.5 mg Q6HR NEB 06/12/25 18:00 06/13/25 18:33 2.5 MG Ipratropium [place] 0.5 mg Q6HR NEB 06/12/25 18:00 06/13/25 18:33 0.5 MG Iron Sucrose 110 ml @ 110 mls/hr DAILY@1200 IV 06/12/25 20:00 06/16/25 12:59 06/13/25 11:40 110 MLS/HR Acetaminophen 650 mg Q6HP PRN [place] 06/13/25 08:15 06/13/25 08:37 650 MG Lorazepam 0.25 mg Q6HP PRN IV 06/13/25 14:15 Enteral Nutritional Formula 1,000 ml 30ML/HR GT 06/13/25 14:15 Vancomycin HCl 0 ml @ 0 mls/hr UD IV 06/13/25 14:30 Examination neurological: Patient extubated, following commands Gen - mild conjunctival pallor, no cyanosis, no clubbing, no LAD, no edema . Skin - Patients skin is warm and dry. HEENT - normocephalic, atraumatic, moist mucous membranes. Neck - no LAD, no JVD Pulmonary - B/L equal breath sounds, no significant rales, no wheezing, no stridor. cardiovascular - regular S1,S2 heard, no added sounds, systolic apical murmur grade 3/6 heard. peripheral pulses normal radial 2+, pedal 1+. capillary refill normal <2 secs. GI - soft, nontender abdomen. Bowel sounds normoactive laboratory and microbiology Laboratory Tests 06/13/25 03:03 Test 06/13/25 03:03 Range/Units Serum Glucose 120 H 74-106 mg/dL Microbiology Date/Time Source Procedure Growth Status 06/06/25 08:45 Blood Blood Culture - Final NO GROWTH AFTER 5 DAYS OF INCUBATION. Complete 06/03/25 17:20 Nose MRSA Screen - Final Complete 06/02/25 08:54 Sputum Gram Stain - Final Complete 06/02/25 08:54 Respiratory Culture - Final Proteus mirabilis - ESBL Complete 06/02/25 08:49 Voided Urine Urine Culture - Final Complete Problem List/Assessment/Plan Problem List/Assessment/Plan Neurology Acute metabolic encephalopathy from likely hypoxic respiratory failure, resolved - patient extubated, following verbal commands Respiratory Acute on chronic hypoxic respiratory failure likely from pulmonary edema Pulmonary edema likely due to mitral insufficiency/CKD Pneumonia due to Proteus mirabilis ESBL - extubated on 06/12 - on oxygen via NC - IV Lasix 40 mg b.i.d. - until 06/13 net negative fluid balance of -6.8 L - chest x-ray shows no significant pulmonary opacities - sputum cultures show growth of Proteus mirabilis ESBL and patient is on meropenem Cardiovascular S/p cardiopulmonary arrest with ROSC [id number] mitral regurgitation Possible infective endocarditis Moderate aortic stenosis NSTEMI likely type 2 from demand ischemia/cardiac arrest h/o CAD s/p PCI with MORGAN - on vancomycin and meropenam - GIRISH shows [id number] mitral insufficiency, 2-3 mm vegetation in the inferior medial aspect of the base of the posterior mitral leaflet - LVEF 55% - Lasix 40 mg b.i.d. IV Nephrology MICAELA on CKD likely due to VMN CKD stage 5, not in dialysis S/p tunneled dialysis catheter insertion - on hemodialysis since 06/06 - Infectious disease Possible infective endocarditis Urinary tract infection Pneumonia due to Proteus mirabilis ESBL - on vancomycin and meropenem - initial and repeat blood cultures showed no growth after 5 days - preliminary urinary cultures show growth of less than 92571 colony-forming units - MRSA screen negative - respiratory culture showed growth of Proteus mirabilis ESBL, on meropenem Endocrinology Type 2 diabetes mellitus - on tube feedings and insulin sliding scale Gastroenterology Possible upper GI bleed - dark stool noticed and stool occult blood positive - heparin stopped - monitor H&H DVT prophylaxis stopped due to stool occult blood positive PUD prophylaxis: On Protonix right midline placed on 06/09 Stevens's catheter placed on 06/02 Right subclavian tunneled dialysis catheter placed on 06/06 Extubated 06/12 NG tube placed on 06/13 Goals of care discussed with the patient's daughter at bedside. Code status: Full code Critical care time excluding procedures: 63 minutes Plan discussed with Dr. Jordan Plan discussed with: Daughter, Other (ELISA Dowling) My Orders My Orders Orders - WARNER SANCHEZ RESIDENT Procedure Category Date Status Time Acetaminophen PHA 06/13/25 In Process Suppository (Tylenol 08:15 Chest Xray 1 View XY 06/13/25 Resulted 09:01 * Swallow Request ST 06/13/25 Transmitted 09:03 Stool Occult Blood LAB 06/13/25 Uncollected 10:15 Vancomycin Per PHA 06/13/25 In Process Pharmacy 14:30 * [employer] CONS 06/13/25 Transmitted Consult Pt Request For Service PT 06/13/25 Logged 14:35 Vancomycin,Random LAB 06/14/25 Verified 04:00 Chest Portable XY 06/13/25 Resulted 17:10 Chest Xray 1 View XY 06/14/25 Logged 04:00 Dietary Evaluation Review Comments: 1. TF Nepro Carbsteady @ 3ml/hr x 24 hr along with Pro-stat 1 pk BID. Start @ 20ml/hr, increase 10ml/hr Q4H until goal is reached. TF at goal volume provides 100% energy & protein needs - 1496 kcal, 89gm protein, 523 ml free water 2. Water flush 240ml Q6H if allowed, adjust PRN 3. TPN if NPO > 7 days 4.Monitor NPO status, lab values, wt trends, I/O Expected Outcomes/Goals: To meet >75% estimated needs Lab values to improve Fu 2-3 days Date of Service: Jun 13, 2025 Billing Provider: JEREMIAS JORDAN MD Common Visit Codes: [id number] CARE 30-74 MIN WARNER SANCHEZ RESIDENT Jun 13, 2025 20:31 JEREMIAS JORDAN MD Jun 14, 2025 14:49
[2025-06-13] MEDS: Nepro With Carb Steady 1 Liter Bottle GT SCH (22:54)
[2025-06-14] VITALS (80 sets, daily range): BP systolic 82–168; BP diastolic 39–67; PULSE 24–107; RESP 10–36; TEMP 98.2–99.5; O2SAT 93–100
--- NOTE | 2025-06-14 03:11 | DVH ---
CHEST RADIOGRAPH Indication: s/p extubation Technique: 1 view Comparison: XY CHEST PORTABLE on DOS: 06/13/25, XY CHEST XRAY 1 VIEW on DOS: 06/13/25, XY CHEST XRAY 1 EW on DOS: 06/13/25, XY CHEST XRAY 1 VIEW on DOS: 06/12/25, XY CHEST XRAY 1 VIEW on DOS: 06/11/25 FINDINGS: Lines and Tubes: Unchanged enteric tube and tunneled right IJ catheter. Lungs: Persistent bilateral infrahilar airspace disease and mild perihilar interstitial prominence. Pleura: Suspected small pleural effusions. No pneumothorax. Cardiomediastinal contours: Unchanged. Other: Unchanged. IMPRESSION: 1. No significant change from the previous study. Stable support devices.
[2025-06-14 03:33] LABS: Hematocrit 28.1 % (36.0-46.0); Hemoglobin 9.1 g/dL (12.2-16.2); Mean Corpuscular Hemoglobin 29.5 pg (28.0-32.0); Mean Corpuscular Volume 90.9 fL (80.0-100.0); Nucleated Red Blood Cells % 0.3 %
[2025-06-14 03:40] LABS: Anion Gap 19 (5-15); Carbon Dioxide 24 mmol/L (20-31); Chloride 99 mmol/L (98-107); Potassium 3.8 mmol/L (3.5-5.1); Sodium 142 mmol/L (136-145)
[2025-06-14 03:41] LABS: Calcium 10.4 mg/dL (8.7-10.4)
[2025-06-14 03:46] LABS: BUN/Creatinine Ratio 10.9 (10.0-20.0)
[2025-06-14 03:52] LABS: Blood Urea Nitrogen 52 mg/dL (9-23); Glucose 121 mg/dL (74-106)
[2025-06-14] MEDS ORDERED: SODIUM CHL 0.9% 1000 ML BAG XX ONE (07:00)
[2025-06-14] MEDS ORDERED: VANCOMYCIN PER PHARMACY 0 MG IV SCH (08:45)
--- NOTE | 2025-06-14 11:15 | DVHPN2 ---
Progress Note - Dictate Date Seen: Jun 14, 2025 Medical Necessity Reason Pt with a Central, PICC or Fol: Yes The following are medically ne: Stevens Catheter Reason for stevens catheter: Strict I&O Subjective Ms. Miller is a 74 years old right-handed female with a history of hypertension, diabetes, coronary artery disease, heart attack, congestive heart failure, chronic kidney failure, bilateral eye blindness, she was brought to the [facility] on 06/02/2025 with a chief company of shortness breath. I have seen and examined the patient, I talked to her nurse, family is in the room with her. She is mentally and physically stronger, alert, oriented to person, place, she knows the month, good social skills Blood culture, 06/06/2025: Blood culture, 06/02/2025: No glucose Urinalysis, 06/02/2025: WBC: 92, urine leukocyte esterase: 2+, urine WBC clumps: Present UDS, 06/04/2025: Negative WBC/HB/PLT/MCV, 06/08/2025: 10.5/9.7/299/90.1 BUN/CR, 06/08/2025: 58/3.17, 06/10/2025: 118/6.33 GFR, 06/10/2025: Six HGB A1c, 06/03/2025: 3.8 Lactic acid, 06/02/2025: 4.7, 2.1 TG/HDL/LDL/HDL, 06/03/2025: 99/1 5/49/34 GIRISH 06/04/2025: There appears to be a 2-3 mm vegetation in the inferior medial aspect of the base of the posterior mitral leaflet. It appears to be much smaller than on previously evaluated transthoracic echocardiogram. CT head, 06/02/2025: No intracranial hemorrhage or mass effect. Mild chronic microvascular ischemic changes. Bilateral orbital phthisis bulbi. vital signs Vital Sign Date Time Temp Pulse Resp B/P (MAP) Pulse Ox O2 Delivery O2 Flow Rate FiO2 06/14/25 10:00 99.5 98 24 113/63 (80) 99 99.5 06/14/25 08:00 Nasal Cannula* 2 28 Total Intake and Output 06/13/25 06/13/25 06/14/25 15:00 23:00 07:00 Intake Total 110 ml 100 ml Output Total 250 ml 255 ml Balance 110 ml -150 ml -255 ml medications Current Medications Medications Dose Ordered Sig/Rosa Route Start Time Stop Time Status Last Admin Dose Admin Pantoprazole Sodium 40 mg DAILY IV 06/03/25 10:00 06/13/25 09:50 40 MG Dextrose 50 ml UD PRN IV 06/02/25 17:45 Diagnostic Test (Pha) 1 strip Q6HR 06/02/25 18:00 06/14/25 06:36 1 STRIP Furosemide 40 mg BIDD IV 06/05/25 18:00 06/14/25 06:28 40 MG Meropenem 50 ml @ 17 mls/hr DAILY IV 06/06/25 16:45 06/13/25 09:50 17 MLS/HR Hydralazine HCl 10 mg Q6HP PRN IV 06/07/25 06:00 06/07/25 06:19 10 MG Epoetin Graham-epbx 10,000 unit MWF SC 06/12/25 10:30 06/12/25 14:23 10,000 UNIT Albuterol 2.5 mg Q6HR NEB 06/12/25 18:00 06/14/25 06:49 2.5 MG Ipratropium Mcd[place] 0.5 mg Q6HR NEB 06/12/25 18:00 06/14/25 06:49 0.5 MG Iron Sucrose 110 ml @ 110 mls/hr DAILY@1200 IV 06/12/25 20:00 06/16/25 12:59 06/13/25 11:40 110 MLS/HR Lorazepam 0.25 mg Q6HP PRN IV 06/13/25 14:15 Enteral Nutritional Formula 1,000 ml 30ML/HR GT 06/13/25 14:15 06/13/25 22:54 1,000 ML Vancomycin HCl 0 ml @ 0 mls/hr UD IV 06/14/25 08:45 Acetaminophen 650 mg Q6HP PRN PO 06/14/25 11:00 objective The patient is well-nourished and well-developed with no distress. MENTAL STATUS: Subjective CRANIAL NERVES: Eyes are cloudy. Normal conjugated eye movement. Sensorimotor examined in bilateral trigeminal distribution is fine No signs of facial weakness. There are gagging or coughing reflexes oral care SENSATION: Responds to light touch MOTOR: Normal tone in the upper and lower extremity. Normal muscle bulk. No fasciculations. She moves the arms and legs REFLEXES: Deep tendon reflexes are symmetrical. No pathological reflexes. CEREBELLAR/COORDINATION: Deferred GAIT/STATION: deferred laboratory and microbiology Laboratory Tests 06/14/25 02:32 Test 06/14/25 02:32 Range/Units Serum Glucose 121 H 74-106 mg/dL Problem List Coma, resolved Hypoxic encephalopathy Metabolic encephalopathy Toxic encephalopathy Status post CPR Cardiopulmonary arrest Urinary tract infection Sepsis Chronic kidney failure Possible endocarditis Assessment/Plan Monitoring Supportive treatment ICU care Follow up blood culture Follow up routine lab EEG Stabilize vitals Respiratory support/vent management Oxygen IV antibiotics Physical therapy More recommendation per clinical course This medical document was created using an electronic medical record system with [employer] dictation system. Although this document has been carefully reviewed, there may still be some phonetic and typographical errors. These areas are purely typographical due to imperfections of the software programs, and do not reflect any compromise in the patient's medical care. Prognosis poor Dietary Evaluation Review Comments: 1. TF Nepro Carbsteady @ 3ml/hr x 24 hr along with Pro-stat 1 pk BID. Start @ 20ml/hr, increase 10ml/hr Q4H until goal is reached. TF at goal volume provides 100% energy & protein needs - 1496 kcal, 89gm protein, 523 ml free water 2. Water flush 240ml Q6H if allowed, adjust PRN 3. TPN if NPO > 7 days 4.Monitor NPO status, lab values, wt trends, I/O Expected Outcomes/Goals: To meet >75% estimated needs Lab values to improve Fu 2-3 days Plan discussed with: Daughter, Other JAYNE LUX MD Jun 14, 2025 11:15
--- NOTE | 2025-06-14 16:27 | DVHPN2 ---
Consult Progress Note Subjective Other Systems: Patient in normal sinus rhythm at time of assessment, currently undergoing hemodialysis Objective vital signs Vital Sign Date Time Temp Pulse Resp B/P (MAP) Pulse Ox O2 Delivery O2 Flow Rate FiO2 06/14/25 14:00 98 31 113/62 (79) 99 06/14/25 11:34 Nasal Cannula* 2 28 06/14/25 10:00 99.5 99.5 Total Intake and Output 06/13/25 06/13/25 06/14/25 15:00 23:00 07:00 Intake Total 110 ml 100 ml Output Total 250 ml 255 ml Balance 110 ml -150 ml -255 ml medications Current Medications Medications Dose Ordered Sig/Rosa Route Start Time Stop Time Status Last Admin Dose Admin Pantoprazole Sodium 40 mg DAILY IV 06/03/25 10:00 06/13/25 09:50 40 MG Dextrose 50 ml UD PRN IV 06/02/25 17:45 Diagnostic Test (Pha) 1 strip Q6HR 06/02/25 18:00 06/14/25 12:04 1 STRIP Furosemide 40 mg BIDD IV 06/05/25 18:00 06/14/25 06:28 40 MG Meropenem 50 ml @ 17 mls/hr DAILY IV 06/06/25 16:45 06/13/25 09:50 17 MLS/HR Hydralazine HCl 10 mg Q6HP PRN IV 06/07/25 06:00 06/07/25 06:19 10 MG Epoetin Graham-epbx 10,000 unit MWF SC 06/12/25 10:30 06/12/25 14:23 10,000 UNIT Albuterol 2.5 mg Q6HR NEB 06/12/25 18:00 06/14/25 12:01 2.5 MG Ipratropium [place] 0.5 mg Q6HR NEB 06/12/25 18:00 06/14/25 12:01 0.5 MG Iron Sucrose 110 ml @ 110 mls/hr DAILY@1200 IV 06/12/25 20:00 06/16/25 12:59 06/13/25 11:40 110 MLS/HR Lorazepam 0.25 mg Q6HP PRN IV 06/13/25 14:15 Enteral Nutritional Formula 1,000 ml 30ML/HR GT 06/13/25 14:15 06/14/25 12:04 1,000 ML Vancomycin HCl 0 ml @ 0 mls/hr UD IV 06/14/25 08:45 Acetaminophen 650 mg Q6HP PRN PO 06/14/25 11:00 Examination: GENERAL:Abnormal (Generalized weakness), LUNGS:Normal, CVS:Normal, NEURO:Normal laboratory and microbiology Laboratory Tests 06/14/25 02:32 Test 06/14/25 02:32 Range/Units Serum Glucose 121 H 74-106 mg/dL Problem List/Assessment/Plan Problem List/Assessment/Plan Cardiopulmonary arrest status post CPR with ROSC NSTEMI, rule out progressive coronary artery disease ?Infective endocarditis Coronary artery disease status post PTCA with multiple MORGAN Acute on chronic HFpEF, NYHA class III Acute anemia status post PRBC transfusion Prolonged QTc interval Chronic kidney disease, now on hemodialysis Type 2 diabetes mellitus Plan/recommendations (Dr. Robison): Case discussed with . The patient came in status post cardiopulmonary arrest with CPR and return of spontaneous circulation. She went underwent a transthoracic echocardiogram which revealed an EF of 50% with a mobile vegetation at the base of the posterior mitral leaflet extending into the mid section of the posterior mitral leaflet. The patient then underwent a transesophageal echocardiogram which revealed a 2-3 mm vegetation in the inferior medial aspect of the base of the posterior mitral leaflet. A infectious disease consultation was recommended. Patient now awake and alert. Case discussed with . We will plan for coronary angiogram within the next 1-2 days if cleared from Infectious Disease and GI standpoint. Initiate lipid-lowering agent now that patient has passed swallow evaluation. Patient normally takes aspirin at home for history of coronary artery disease with stent placement. Consider initiating Single antiplatelet therapy if no signs of bleeding and hemoglobin remains stable. Continue with close cardiac surveillance. Thank you for allowing us to care for this patient. Please call with any questions or concerns. Critical care time spent: 35 minutes. This medical document was created using an electronic medical record system with voice recognition software and computerized dictation system. Although this document has been carefully reviewed, there might still be some phonetic and typographical errors. Occasional wrong-word or ``sound-alike substitutions may have occurred due to the inherent limitations of voice recognition software. These areas are purely typographical due to imperfections of the software programs and do not reflect any compromise in the patient's medical care. Please read the chart carefully and recognize, using context, where these substitutions have occurred. Plan discussed with: Other (Bedside RN) Dietary Evaluation Review Comments: 1. TF Nepro Carbsteady @ 3ml/hr x 24 hr along with Pro-stat 1 pk BID. Start @ 20ml/hr, increase 10ml/hr Q4H until goal is reached. TF at goal volume provides 100% energy & protein needs - 1496 kcal, 89gm protein, 523 ml free water 2. Water flush 240ml Q6H if allowed, adjust PRN 3. TPN if NPO > 7 days 4.Monitor NPO status, lab values, wt trends, I/O Expected Outcomes/Goals: To meet >75% estimated needs Lab values to improve Fu 2-3 days Date of Service: Jun 14, 2025 Billing Provider: TIANA ANDRADE Common Visit Codes: [id number] CARE 30-74 MIN TIANA ANDRADE Jun 14, 2025 16:26
[2025-06-14] MEDS: LACTULOSE 20Gm/30ML SOLN PO ONE ×2 (16:41→22:15)
[2025-06-14] MEDS: ACETAMINOPHEN 325 MG TAB PO PRN (16:42)
[2025-06-14] MEDS: SODIUM CHLORIDE 0.9% 250 ML IV ONE (18:31)
--- NOTE | 2025-06-14 21:33 | DVHPN2 ---
Progress Note Date Seen: Jun 14, 2025 Medical Necessity Reason Pt with a Central, PICC or Fol: Yes The following are medically ne: Stevens Catheter Reason for stevens catheter: Strict I&O Subjective Patient reports: No new complaints, Other Review of Systems: Deferred Objective vital signs Vital Sign Date Time Temp Pulse Resp B/P (MAP) Pulse Ox O2 Delivery O2 Flow Rate FiO2 06/14/25 19:13 96 20 100 06/14/25 19:07 Nasal Cannula* 2 28 06/14/25 18:45 102/55 (71) 06/14/25 16:00 98.5 98.5 Total Intake and Output 06/13/25 06/13/25 06/14/25 15:00 23:00 07:00 Intake Total 110 ml 100 ml Output Total 250 ml 255 ml Balance 110 ml -150 ml -255 ml medications Current Medications Medications Dose Ordered Sig/Rosa Route Start Time Stop Time Status Last Admin Dose Admin Pantoprazole Sodium 40 mg DAILY IV 06/03/25 10:00 06/14/25 16:41 40 MG Dextrose 50 ml UD PRN IV 06/02/25 17:45 Diagnostic Test (Pha) 1 strip Q6HR 06/02/25 18:00 06/14/25 12:04 1 STRIP Furosemide 40 mg BIDD IV 06/05/25 18:00 06/14/25 06:28 40 MG Meropenem 50 ml @ 17 mls/hr DAILY IV 06/06/25 16:45 06/14/25 16:41 17 MLS/HR Hydralazine HCl 10 mg Q6HP PRN IV 06/07/25 06:00 06/07/25 06:19 10 MG Epoetin Graham-epbx 10,000 unit MWF SC 06/12/25 10:30 06/12/25 14:23 10,000 UNIT Albuterol 2.5 mg Q6HR NEB 06/12/25 18:00 06/14/25 19:07 2.5 MG Ipratropium [place] 0.5 mg Q6HR NEB 06/12/25 18:00 06/14/25 19:07 0.5 MG Iron Sucrose 110 ml @ 110 mls/hr DAILY@1200 IV 06/12/25 20:00 06/16/25 12:59 06/14/25 16:42 110 MLS/HR Lorazepam 0.25 mg Q6HP PRN IV 06/13/25 14:15 Enteral Nutritional Formula 1,000 ml 30ML/HR GT 06/13/25 14:15 06/14/25 12:04 1,000 ML Vancomycin HCl 0 ml @ 0 mls/hr UD IV 06/14/25 08:45 Acetaminophen 650 mg Q6HP PRN PO 06/14/25 11:00 06/14/25 16:42 650 MG Atorvastatin Calcium 40 mg HS PO 06/14/25 22:00 Fluconazole 100 ml @ 100 mls/hr DAILY IV 06/15/25 10:00 laboratory and microbiology Laboratory Tests 06/14/25 02:32 Test 06/14/25 02:32 Range/Units Serum Glucose 121 H 74-106 mg/dL Microbiology Date/Time Source Procedure Growth Status 06/06/25 08:45 Blood Blood Culture - Final NO GROWTH AFTER 5 DAYS OF INCUBATION. Complete 06/03/25 17:20 Nose MRSA Screen - Final Complete 06/02/25 08:54 Sputum Gram Stain - Final Complete 06/02/25 08:54 Respiratory Culture - Final Proteus mirabilis - ESBL Complete 06/02/25 08:49 Voided Urine Urine Culture - Final Complete Problem List/Assessment/Plan Problem List/Assessment/Plan Chronic kidney disease stage 5 with progression to end-stage renal disease Coronary artery disease Cardiac arrest Acute respiratory failure extubated Diabetes Hypertension anemia due to ckd extubated HD today needs long term HD placement in unit, goes to [place] but will need to establish dialysis unit with [facility] outpatient. Family wants to do home hemo after training epogen 3x a week renal diet Plan discussed with: Other Dietary Evaluation Review Comments: 1. TF Nepro Carbsteady @ 3ml/hr x 24 hr along with Pro-stat 1 pk BID. Start @ 20ml/hr, increase 10ml/hr Q4H until goal is reached. TF at goal volume provides 100% energy & protein needs - 1496 kcal, 89gm protein, 523 ml free water 2. Water flush 240ml Q6H if allowed, adjust PRN 3. TPN if NPO > 7 days 4.Monitor NPO status, lab values, wt trends, I/O Expected Outcomes/Goals: To meet >75% estimated needs Lab values to improve Fu 2-3 days HUGO LEE MD Jun 14, 2025 21:33
[2025-06-14] MEDS: ATORVASTATIN 20 MG TAB PO SCH (22:00)
--- NOTE | 2025-06-14 22:09 | DVHPNRES ---
Progress Note Date Seen: Jun 14, 2025 Resident Creating Document: JHJanessaJWARNER Braun RESIDENT Medical Necessity Reason Pt with a Central, PICC or Fol: Yes The following are medically ne: Stevens Catheter Reason for stevens catheter: Strict I&O Subjective Review of Systems 06/14 Patient seen and examined at the bedside. Status post extubation day 2. Overnight patient did not have any respiratory distress with respiratory rate between 25 and 30 on nasal cannula at 2 L/min maintaining oxygen saturation above 95%. Overnight patient did not have any fevers. [place] count increased slightly [place] 7400 to 10491. No bowel movement reported for the last 3 days, lactulose was given. Whitish vaginal discharge was reported following which patient was started on fluconazole. She underwent hemodialysis today with removal of 1 L of fluid. Objective vital signs Vital Sign Date Time Temp Pulse Resp B/P (MAP) Pulse Ox O2 Delivery O2 Flow Rate FiO2 06/14/25 19:13 96 20 100 06/14/25 19:07 Nasal Cannula* 2 28 06/14/25 18:45 102/55 (71) 06/14/25 16:00 98.5 98.5 Total Intake and Output 06/13/25 06/13/25 06/14/25 15:00 23:00 07:00 Intake Total 110 ml 100 ml Output Total 250 ml 255 ml Balance 110 ml -150 ml -255 ml medications Current Medications Medications Dose Ordered Sig/Rosa Route Start Time Stop Time Status Last Admin Dose Admin Pantoprazole Sodium 40 mg DAILY IV 06/03/25 10:00 06/14/25 16:41 40 MG Dextrose 50 ml UD PRN IV 06/02/25 17:45 Diagnostic Test (Pha) 1 strip Q6HR 06/02/25 18:00 06/14/25 12:04 1 STRIP Furosemide 40 mg BIDD IV 06/05/25 18:00 06/14/25 06:28 40 MG Meropenem 50 ml @ 17 mls/hr DAILY IV 06/06/25 16:45 06/14/25 16:41 17 MLS/HR Hydralazine HCl 10 mg Q6HP PRN IV 06/07/25 06:00 06/07/25 06:19 10 MG Epoetin Graham-epbx 10,000 unit MWF SC 06/12/25 10:30 06/12/25 14:23 10,000 UNIT Albuterol 2.5 mg Q6HR NEB 06/12/25 18:00 06/14/25 19:07 2.5 MG Ipratropium [place] 0.5 mg Q6HR NEB 06/12/25 18:00 06/14/25 19:07 0.5 MG Iron Sucrose 110 ml @ 110 mls/hr DAILY@1200 IV 06/12/25 20:00 06/16/25 12:59 06/14/25 16:42 110 MLS/HR Lorazepam 0.25 mg Q6HP PRN IV 06/13/25 14:15 Enteral Nutritional Formula 1,000 ml 30ML/HR GT 06/13/25 14:15 06/14/25 12:04 1,000 ML Vancomycin HCl 0 ml @ 0 mls/hr UD IV 06/14/25 08:45 Acetaminophen 650 mg Q6HP PRN PO 06/14/25 11:00 06/14/25 16:42 650 MG Atorvastatin Calcium 40 mg HS PO 06/14/25 22:00 Fluconazole 100 ml @ 100 mls/hr DAILY IV 06/15/25 10:00 Examination neurological: Patient extubated, following commands Gen - mild conjunctival pallor, no cyanosis, no clubbing, no LAD, no edema . Skin - Patients skin is warm and dry. HEENT - normocephalic, atraumatic, moist mucous membranes. Neck - no LAD, no JVD Pulmonary - B/L equal breath sounds, no significant rales, no wheezing, no stridor. cardiovascular - regular S1,S2 heard, no added sounds, systolic apical murmur grade 4/6 heard. peripheral pulses normal radial 2+, pedal 1+. capillary refill normal <2 secs. GI - soft, nontender abdomen. Bowel sounds normoactive laboratory and microbiology Laboratory Tests 06/14/25 02:32 Test 06/14/25 02:32 Range/Units Serum Glucose 121 H 74-106 mg/dL Microbiology Date/Time Source Procedure Growth Status 06/06/25 08:45 Blood Blood Culture - Final NO GROWTH AFTER 5 DAYS OF INCUBATION. Complete 06/03/25 17:20 Nose MRSA Screen - Final Complete 06/02/25 08:54 Sputum Gram Stain - Final Complete 06/02/25 08:54 Respiratory Culture - Final Proteus mirabilis - ESBL Complete 06/02/25 08:49 Voided Urine Urine Culture - Final Complete Problem List/Assessment/Plan Problem List/Assessment/Plan Neurology Acute metabolic encephalopathy from likely hypoxic respiratory failure, resolved - patient extubated, following verbal commands Respiratory Acute on chronic hypoxic respiratory failure likely from pulmonary edema Pulmonary edema likely due to mitral insufficiency/CKD Pneumonia due to Proteus mirabilis ESBL - extubated on 06/12 - on oxygen via NC - IV Lasix 40 mg b.i.d. - until 06/13 net negative fluid balance of -7.2 L - chest x-ray shows no significant pulmonary opacities - sputum cultures show growth of Proteus mirabilis ESBL and patient is on meropenem Cardiovascular S/p cardiopulmonary arrest with ROSC [id number] mitral regurgitation Possible infective endocarditis Moderate aortic stenosis NSTEMI likely type 2 from demand ischemia/cardiac arrest h/o CAD s/p PCI with MORGAN - on vancomycin and meropenam - GIRISH shows [id number] mitral insufficiency, 2-3 mm vegetation in the inferior medial aspect of the base of the posterior mitral leaflet - LVEF 55% - Lasix 40 mg b.i.d. IV Nephrology MICAELA on CKD likely due to VMN CKD stage 5, not in dialysis S/p tunneled dialysis catheter insertion - on hemodialysis since 06/06 Infectious disease Possible infective endocarditis Urinary tract infection Pneumonia due to Proteus mirabilis ESBL - on vancomycin and meropenem - initial and repeat blood cultures showed no growth after 5 days - preliminary urinary cultures show growth of less than 00767 colony-forming units - MRSA screen negative - respiratory culture showed growth of Proteus mirabilis ESBL, on meropenem Endocrinology Type 2 diabetes mellitus - on tube feedings and insulin sliding scale Gastroenterology Possible upper GI bleed - dark stool noticed and stool occult blood positive - heparin stopped - monitor H&H DVT prophylaxis stopped due to stool occult blood positive PUD prophylaxis: On Protonix right midline placed on 06/09 Stevens's catheter placed on 06/02 Right subclavian tunneled dialysis catheter placed on 06/06 Extubated 06/12 Goals of care discussed with the patient's daughter at bedside. Code status: Full code Critical care time excluding procedures: 66 minutes Plan discussed with Dr. Jordan Plan discussed with: Daughter, Other (ELISA Leach) My Orders My Orders Orders - WARNER SANCHEZ RESIDENT Procedure Category Date Status Time Vancomycin Per PHA 06/14/25 In Process Pharmacy 08:45 Creatinine LAB 06/15/25 Verified 04:00 Vancomycin,Random LAB 06/15/25 Verified 04:00 Acetaminophen Tablet PHA 06/14/25 In Process (Tylenol Tablet) 11:00 * Swallow Request ST 06/14/25 Transmitted 11:06 Transfer Orders XFER 06/14/25 Transmitted 11:09 Fluconazole PHA 06/15/25 In Process 200mg/100ml (Diflucan 10:00 Complete Blood Count LAB 06/15/25 Verified 04:00 Comprehensive LAB 06/15/25 Verified Metabolic Panel 04:00 Vitamin B12 LAB 06/15/25 Verified 04:00 Lactulose Oral PHA 06/14/25 Verified 22:15 Dietary Evaluation Review Comments: 1. TF Nepro Carbsteady @ 3ml/hr x 24 hr along with Pro-stat 1 pk BID. Start @ 20ml/hr, increase 10ml/hr Q4H until goal is reached. TF at goal volume provides 100% energy & protein needs - 1496 kcal, 89gm protein, 523 ml free water 2. Water flush 240ml Q6H if allowed, adjust PRN 3. TPN if NPO > 7 days 4.Monitor NPO status, lab values, wt trends, I/O Expected Outcomes/Goals: To meet >75% estimated needs Lab values to improve Fu 2-3 days Date of Service: Jun 14, 2025 Billing Provider: JEREMIAS JORDAN MD Common Visit Codes: [id number] CARE 30-74 MIN WARNER SANCHEZ RESIDENT Jun 14, 2025 22:09 JEREMIAS JORDAN MD Jun 15, 2025 12:12
[2025-06-14] MEDS: FLUCONAZOLE 200MG/100ML 100 ML IV ONE (22:15)
[2025-06-15] VITALS (80 sets, daily range): BP systolic 95–151; BP diastolic 43–95; PULSE 82–122; RESP 9–39; TEMP 98.8–99.4; O2SAT 80–100
[2025-06-15 03:03] LABS: Hematocrit 29.2 % (36.0-46.0); Hemoglobin 9.6 g/dL (12.2-16.2); Mean Corpuscular Hemoglobin 29.6 pg (28.0-32.0); Mean Corpuscular Volume 89.8 fL (80.0-100.0); Nucleated Red Blood Cells % 0.4 %
[2025-06-15 03:22] LABS: Alanine Aminotransferase 21 U/L (7-40); Albumin 4.1 g/dL (3.2-4.8); Anion Gap 16 (5-15); BUN/Creatinine Ratio 8.3 (10.0-20.0); Calcium 10.1 mg/dL (8.7-10.4); Carbon Dioxide 24 mmol/L (20-31); Chloride 101 mmol/L (98-107); Potassium 3.8 mmol/L (3.5-5.1); Sodium 141 mmol/L (136-145); Total Protein 7.6 g/dL (5.7-8.2)
[2025-06-15 03:23] LABS: Bilirubin, Total 0.5 mg/dL (0.2-1.0)
[2025-06-15 03:28] LABS: Alkaline Phosphatase 136 U/L (46-116); Blood Urea Nitrogen 27 mg/dL (9-23); Glucose 139 mg/dL (74-106)
--- NOTE | 2025-06-15 05:42 | DVH ---
CHEST RADIOGRAPH Indication: resp failure Technique: 1 view Comparison: XY CHEST XRAY 1 VIEW on DOS: 06/14/25, XY CHEST PORTABLE on DOS: 06/13/25, XY CHEST XRAY 1 EW on DOS: 06/13/25, XY CHEST XRAY 1 VIEW on DOS: 06/13/25, XY CHEST XRAY 1 VIEW on DOS: 06/12/25 FINDINGS: Lines and Tubes: Enteric extubation. Unchanged tunneled right IJ catheter. Lungs: Unchanged bilateral infrahilar airspace disease and mild interstitial opacities. Pleura: No large pleural effusion or pneumothorax. Cardiomediastinal contours: Unchanged. Other: Unchanged. IMPRESSION: 1. Enteric extubation. No other significant change from 1 day prior.
[2025-06-15] MEDS: FLUCONAZOLE 200MG/100ML 100 ML IV SCH (10:15)
--- NOTE | 2025-06-15 10:29 | DVHPN2 ---
Consult Progress Note Date Seen: Jun 15, 2025 Subjective Review of Systems: CVS:Normal, RESPIRATORY:Normal, NEURO:Normal Objective vital signs Vital Sign Date Time Temp Pulse Resp B/P (MAP) Pulse Ox O2 Delivery O2 Flow Rate FiO2 06/15/25 08:45 98.8 94 25 141/57 (85) 97 98.8 06/15/25 08:30 Nasal Cannula* 1 24 Total Intake and Output 06/14/25 06/14/25 06/15/25 15:00 23:00 07:00 Intake Total 470 ml 100 ml Output Total 1000 ml 40 ml Balance -530 ml 60 ml medications Current Medications Medications Dose Ordered Sig/Rosa Route Start Time Stop Time Status Last Admin Dose Admin Pantoprazole Sodium 40 mg DAILY IV 06/03/25 10:00 06/14/25 16:41 40 MG Dextrose 50 ml UD PRN IV 06/02/25 17:45 Diagnostic Test (Pha) 1 strip Q6HR 06/02/25 18:00 06/15/25 06:00 1 STRIP Furosemide 40 mg BIDD IV 06/05/25 18:00 06/15/25 06:52 40 MG Meropenem 50 ml @ 17 mls/hr DAILY IV 06/06/25 16:45 06/14/25 16:41 17 MLS/HR Hydralazine HCl 10 mg Q6HP PRN IV 06/07/25 06:00 06/07/25 06:19 10 MG Epoetin Graham-epbx 10,000 unit MWF SC 06/12/25 10:30 06/12/25 14:23 10,000 UNIT Albuterol 2.5 mg Q6HR NEB 06/12/25 18:00 06/15/25 07:09 2.5 MG Ipratropium Campbell 0.5 mg Q6HR NEB 06/12/25 18:00 06/15/25 07:09 0.5 MG Iron Sucrose 110 ml @ 110 mls/hr DAILY@1200 IV 06/12/25 20:00 06/16/25 12:59 06/14/25 16:42 110 MLS/HR Lorazepam 0.25 mg Q6HP PRN IV 06/13/25 14:15 Enteral Nutritional Formula 1,000 ml 30ML/HR GT 06/13/25 14:15 06/14/25 12:04 1,000 ML Vancomycin HCl 0 ml @ 0 mls/hr UD IV 06/14/25 08:45 Acetaminophen 650 mg Q6HP PRN PO 06/14/25 11:00 06/14/25 16:42 650 MG Atorvastatin Calcium 40 mg HS PO 06/14/25 22:00 06/14/25 22:00 40 MG Fluconazole 100 ml @ 100 mls/hr DAILY IV 06/15/25 10:00 Examination: GENERAL:Abnormal (Chronically ill), LUNGS:Normal, CVS:Abnormal (Holosystolic murmur grade IV. Sinus tachycardia low 100s with T wave inversion), NEURO:Normal laboratory and microbiology Laboratory Tests 06/15/25 02:11 Test 06/15/25 02:11 Range/Units Serum Glucose 139 H 74-106 mg/dL Problem List/Assessment/Plan Problem List/Assessment/Plan Cardiopulmonary arrest status post CPR with ROSC Non ST-elevation myocardial infarction rule out progressive coronary artery disease Posterior mitral leaflet infective endocarditis Coronary artery disease status post PTCA with multiple MORGAN Acute on chronic HFpEF, NYHA class III Severe mitral valve insufficiency Acute anemia status post PRBC transfusion Prolonged QTc interval, resolved MICAELA on chronic kidney disease, now on hemodialysis Type 2 diabetes mellitus Plan/Recommendations (Dr. Robison) The patient presented status post cardiopulmonary arrest with CPR and return of spontaneous circulation. She underwent a transthoracic echocardiogram which revealed an EF of 50% with a mobile vegetation at the base of the posterior mitral leaflet extending into the mid section of the posterior mitral leaflet. A transesophageal echocardiogram revealed a 2-3 mm vegetation in the inferior medial aspect of the base of the posterior mitral leaflet for which an infectious disease consultation has been recommended. The patient can benefit from an eventual coronary angiogram with cardiac catheterization and mitral valve replacement given severe mitral insufficiency. It would be prudent to consider transferring to [facility] [place] given surgical back up and complexity of case including subacute endocarditis of the mitral valve. In the meantime, initiate ASA and monitor H&H closely. Continue lipid-lowering agent. Continue with close cardiac surveillance. Continue antibiotic therapy per primary care team. Thank you for allowing us to care for this patient. Please call with any questions or concerns. Critical care time spent: 35 minutes. This medical document was created using an electronic medical record system with voice recognition software and computerized dictation system. Although this document has been carefully reviewed, there might still be some phonetic and typographical errors. Occasional wrong-word or ``sound-alike substitutions may have occurred due to the inherent limitations of voice recognition software. These areas are purely typographical due to imperfections of the software programs and do not reflect any compromise in the patient's medical care. Please read the chart carefully and recognize, using context, where these substitutions have occurred. Plan discussed with: Patient, Other Dietary Evaluation Review Comments: 1. TF Nepro Carbsteady @ 3ml/hr x 24 hr along with Pro-stat 1 pk BID. Start @ 20ml/hr, increase 10ml/hr Q4H until goal is reached. TF at goal volume provides 100% energy & protein needs - 1496 kcal, 89gm protein, 523 ml free water 2. Water flush 240ml Q6H if allowed, adjust PRN 3. TPN if NPO > 7 days 4.Monitor NPO status, lab values, wt trends, I/O Expected Outcomes/Goals: To meet >75% estimated needs Lab values to improve Fu 2-3 days Date of Service: Jun 15, 2025 Billing Provider: OLLIE SR Cardiology Common Codes: [id number] CARE 30-74 MIN OLLIE SR Jun 15, 2025 10:28
--- NOTE | 2025-06-15 10:58 | DVHPN2 ---
Progress Note - Dictate Date Seen: Jun 15, 2025 Medical Necessity Reason Pt with a Central, PICC or Fol: Yes The following are medically ne: Stevens Catheter Reason for stevens catheter: Strict I&O Subjective Ms. Miller is a 74 years old right-handed female with a history of hypertension, diabetes, coronary artery disease, heart attack, congestive heart failure, chronic kidney failure, bilateral eye blindness, she was brought to the [facility] on 06/02/2025 with a chief company of shortness breath. I have seen and examined the patient, I talked to her nurse, she is sitting at a her , awake, oriented to person, place, she knows year and the month, she follows verbal commands Blood culture, 06/06/2025: No growth Blood culture, 06/02/2025: No glucose Urinalysis, 06/02/2025: WBC: 92, urine leukocyte esterase: 2+, urine WBC clumps: Present UDS, 06/04/2025: Negative WBC/HB/PLT/MCV, 06/08/2025: 10.5/9.7/299/90.1 BUN/CR, 06/08/2025: 58/3.17, 06/10/2025: 118/6.33 GFR, 06/10/2025: Six HGB A1c, 06/03/2025: 3.8 Lactic acid, 06/02/2025: 4.7, 2.1 TG/HDL/LDL/HDL, 06/03/2025: 99/1 5/49/34 GIRISH 06/04/2025: There appears to be a 2-3 mm vegetation in the inferior medial aspect of the base of the posterior mitral leaflet. It appears to be much smaller than on previously evaluated transthoracic echocardiogram. CT head, 06/02/2025: No intracranial hemorrhage or mass effect. Mild chronic microvascular ischemic changes. Bilateral orbital phthisis bulbi. vital signs Vital Sign Date Time Temp Pulse Resp B/P (MAP) Pulse Ox O2 Delivery O2 Flow Rate FiO2 06/15/25 08:45 98.8 94 25 141/57 (85) 97 98.8 06/15/25 08:30 Nasal Cannula* 1 24 Total Intake and Output 06/14/25 06/14/25 06/15/25 15:00 23:00 07:00 Intake Total 470 ml 100 ml Output Total 1000 ml 40 ml Balance -530 ml 60 ml medications Current Medications Medications Dose Ordered Sig/Rosa Route Start Time Stop Time Status Last Admin Dose Admin Pantoprazole Sodium 40 mg DAILY IV 06/03/25 10:00 06/15/25 10:16 40 MG Dextrose 50 ml UD PRN IV 06/02/25 17:45 Diagnostic Test (Pha) 1 strip Q6HR 06/02/25 18:00 06/15/25 06:00 1 STRIP Furosemide 40 mg BIDD IV 06/05/25 18:00 06/15/25 06:52 40 MG Meropenem 50 ml @ 17 mls/hr DAILY IV 06/06/25 16:45 06/15/25 10:15 17 MLS/HR Hydralazine HCl 10 mg Q6HP PRN IV 06/07/25 06:00 06/07/25 06:19 10 MG Epoetin Graham-epbx 10,000 unit MWF SC 06/12/25 10:30 06/12/25 14:23 10,000 UNIT Albuterol 2.5 mg Q6HR NEB 06/12/25 18:00 06/15/25 07:09 2.5 MG Ipratropium [place] 0.5 mg Q6HR NEB 06/12/25 18:00 06/15/25 07:09 0.5 MG Iron Sucrose 110 ml @ 110 mls/hr DAILY@1200 IV 06/12/25 20:00 06/16/25 12:59 06/14/25 16:42 110 MLS/HR Lorazepam 0.25 mg Q6HP PRN IV 06/13/25 14:15 Enteral Nutritional Formula 1,000 ml 30ML/HR GT 06/13/25 14:15 06/14/25 12:04 1,000 ML Vancomycin HCl 0 ml @ 0 mls/hr UD IV 06/14/25 08:45 Acetaminophen 650 mg Q6HP PRN PO 06/14/25 11:00 06/14/25 16:42 650 MG Atorvastatin Calcium 40 mg HS PO 06/14/25 22:00 06/14/25 22:00 40 MG Fluconazole 100 ml @ 100 mls/hr DAILY IV 06/15/25 10:00 06/15/25 10:15 100 MLS/HR Aspirin 81 mg DAILY PO 06/16/25 10:00 UNV objective The patient is well-nourished and well-developed with no distress. MENTAL STATUS: Subjective CRANIAL NERVES: Eyes are cloudy. Normal conjugated eye movement. Sensorimotor examined in bilateral trigeminal distribution is fine No signs of facial weakness. There are gagging or coughing reflexes oral care SENSATION: Responds to light touch MOTOR: Normal tone in the upper and lower extremity. Normal muscle bulk. No fasciculations. She moves the arms and legs REFLEXES: Deep tendon reflexes are symmetrical. No pathological reflexes. CEREBELLAR/COORDINATION: Deferred GAIT/STATION: deferred laboratory and microbiology Laboratory Tests 06/15/25 02:11 Test 06/15/25 02:11 Range/Units Serum Glucose 139 H 74-106 mg/dL Problem List Coma, resolved Hypoxic encephalopathy Metabolic encephalopathy Toxic encephalopathy Status post CPR Cardiopulmonary arrest Urinary tract infection Sepsis Chronic kidney failure Possible endocarditis Assessment/Plan Monitoring Supportive treatment ICU care Follow up routine lab Stabilize vitals Respiratory support/vent management Oxygen IV antibiotics Physical therapy More recommendation per clinical course This medical document was created using an electronic medical record system with [employer] dictation system. Although this document has been carefully reviewed, there may still be some phonetic and typographical errors. These areas are purely typographical due to imperfections of the software programs, and do not reflect any compromise in the patient's medical care. Prognosis poor Dietary Evaluation Review Comments: 1. TF Nepro Carbsteady @ 3ml/hr x 24 hr along with Pro-stat 1 pk BID. Start @ 20ml/hr, increase 10ml/hr Q4H until goal is reached. TF at goal volume provides 100% energy & protein needs - 1496 kcal, 89gm protein, 523 ml free water 2. Water flush 240ml Q6H if allowed, adjust PRN 3. TPN if NPO > 7 days 4.Monitor NPO status, lab values, wt trends, I/O Expected Outcomes/Goals: To meet >75% estimated needs Lab values to improve Fu 2-3 days Plan discussed with: Other JAYNE LUX MD Jun 15, 2025 10:58
[2025-06-15] MEDS: VANCOMYCIN 500mg/100mL 100 ML IV ONE (16:06)
--- NOTE | 2025-06-15 17:23 | DVHPNRES ---
Progress Note Date Seen: Jun 15, 2025 Resident Creating Document: WARNER SANCHEZ RESIDENT Medical Necessity Reason Pt with a Central, PICC or Fol: Yes The following are medically ne: Stevens Catheter Reason for stevens catheter: Strict I&O Subjective Review of Systems 06/15 Patient seen and examined at the bedside. Status post extubation day 3. Overnight patient did not have any respiratory distress with respiratory rate between 25 and 30 on nasal cannula at 2 L/min maintaining oxygen saturation above 95%. Overnight patient did not [place] [address] slightly decreased done yesterday. Overnight patient had 2 bowel movements, stool occult blood was negative. She underwent hemodialysis yesterday with removal of 1 L of fluid. Objective vital signs Vital Sign Date Time Temp Pulse Resp B/P (MAP) Pulse Ox O2 Delivery O2 Flow Rate FiO2 06/15/25 16:00 96 06/15/25 13:45 15 123/72 (89) 100 06/15/25 12:00 Nasal Cannula* 2 28 06/15/25 08:45 98.8 98.8 Total Intake and Output 06/14/25 06/14/25 06/15/25 15:00 23:00 07:00 Intake Total 470 ml 100 ml Output Total 1000 ml 40 ml Balance -530 ml 60 ml medications Current Medications Medications Dose Ordered Sig/Rosa Route Start Time Stop Time Status Last Admin Dose Admin Pantoprazole Sodium 40 mg DAILY IV 06/03/25 10:00 06/15/25 10:16 40 MG Dextrose 50 ml UD PRN IV 06/02/25 17:45 Diagnostic Test (Pha) 1 strip Q6HR 06/02/25 18:00 06/15/25 13:00 1 STRIP Furosemide 40 mg BIDD IV 06/05/25 18:00 06/15/25 06:52 40 MG Meropenem 50 ml @ 17 mls/hr DAILY IV 06/06/25 16:45 06/15/25 10:15 17 MLS/HR Hydralazine HCl 10 mg Q6HP PRN IV 06/07/25 06:00 06/07/25 06:19 10 MG Epoetin Graham-epbx 10,000 unit MWF SC 06/12/25 10:30 06/12/25 14:23 10,000 UNIT Albuterol 2.5 mg Q6HR NEB 06/12/25 18:00 06/15/25 07:09 2.5 MG Ipratropium Bard 0.5 mg Q6HR NEB 06/12/25 18:00 06/15/25 07:09 0.5 MG Iron Sucrose 110 ml @ 110 mls/hr DAILY@1200 IV 06/12/25 20:00 06/16/25 12:59 06/15/25 14:44 110 MLS/HR Lorazepam 0.25 mg Q6HP PRN IV 06/13/25 14:15 Enteral Nutritional Formula 1,000 ml 30ML/HR GT 06/13/25 14:15 06/14/25 12:04 1,000 ML Vancomycin HCl 0 ml @ 0 mls/hr UD IV 06/14/25 08:45 Acetaminophen 650 mg Q6HP PRN PO 06/14/25 11:00 06/14/25 16:42 650 MG Atorvastatin Calcium 40 mg HS PO 06/14/25 22:00 06/14/25 22:00 40 MG Fluconazole 100 ml @ 100 mls/hr DAILY IV 06/15/25 10:00 06/15/25 10:15 100 MLS/HR Aspirin 81 mg DAILY PO 06/16/25 10:00 Examination neurological: Patient extubated, following commands Gen - mild conjunctival pallor, no cyanosis, no clubbing, no LAD, no edema . Skin - Patients skin is warm and dry. HEENT - normocephalic, atraumatic, moist mucous membranes. Neck - no LAD, no JVD Pulmonary - B/L equal breath sounds, no significant rales, no wheezing, no stridor. cardiovascular - regular S1,S2 heard, no added sounds, systolic apical murmur grade 4/6 heard. peripheral pulses normal radial 2+, pedal 1+. capillary refill normal <2 secs. GI - soft, nontender abdomen. Bowel sounds normoactive laboratory and microbiology Laboratory Tests 06/15/25 02:11 Test 06/15/25 02:11 Range/Units Serum Glucose 139 H 74-106 mg/dL Microbiology Date/Time Source Procedure Growth Status 06/06/25 08:45 Blood Blood Culture - Final NO GROWTH AFTER 5 DAYS OF INCUBATION. Complete 06/03/25 17:20 Nose MRSA Screen - Final Complete 06/02/25 08:54 Sputum Gram Stain - Final Complete 06/02/25 08:54 Respiratory Culture - Final Proteus mirabilis - ESBL Complete 06/02/25 08:49 Voided Urine Urine Culture - Final Complete Problem List/Assessment/Plan Problem List/Assessment/Plan Neurology Acute metabolic encephalopathy from likely hypoxic respiratory failure, resolved - patient extubated, following verbal commands, passed swallow exam and is on pureed diet Respiratory Acute on chronic hypoxic respiratory failure likely from pulmonary edema Pulmonary edema likely due to mitral insufficiency/CKD Pneumonia due to Proteus mirabilis ESBL - extubated on 06/12 - on oxygen via NC - IV Lasix 40 mg b.i.d. - until 06/13 net negative fluid balance of -7.3 L - chest x-ray shows no significant pulmonary opacities - sputum cultures show growth of Proteus mirabilis ESBL and patient is on meropenem Cardiovascular S/p cardiopulmonary arrest with ROSC Incyeslf-ak-spzjbn mitral regurgitation Possible infective endocarditis Moderate aortic stenosis NSTEMI likely type 2 from demand ischemia/cardiac arrest h/o CAD s/p PCI with MORGAN - on vancomycin and meropenam - GIRISH shows [id number] mitral insufficiency, 2-3 mm vegetation in the inferior medial aspect of the base of the posterior mitral leaflet - LVEF 55% - Lasix 40 mg b.i.d. IV Nephrology MICAELA on CKD likely due to VMN CKD stage 5, not in dialysis S/p tunneled dialysis catheter insertion - on hemodialysis since 06/06 Infectious disease Possible infective endocarditis Urinary tract infection Pneumonia due to Proteus mirabilis ESBL - on vancomycin and meropenem - initial and repeat blood cultures showed no growth after 5 days - preliminary urinary cultures show [place] [address] colony-forming units - MRSA screen negative - respiratory culture showed growth of Proteus mirabilis ESBL, on meropenem Endocrinology Type 2 diabetes mellitus - on tube feedings and insulin sliding scale Gastroenterology Possible upper GI bleed - dark stool noticed and stool occult blood positive - heparin stopped - monitor H&H DVT prophylaxis stopped due to stool occult blood positive PUD prophylaxis: On Protonix right midline placed on 06/09 Stevens's catheter placed on 06/02 Right subclavian tunneled dialysis catheter placed on 06/06 Extubated 06/12 Goals of care discussed with the patient's daughter at bedside. Daughter was explained about with the mitral insufficiency and the need for further cardiac workup and possible mitral valve replacement. She was also explained about the complexity of the case and that the current facility does not have surgical backup if needed. Patient discussed with a with the cardiology team in this facility and agreed to transfer to [place] for further management. Code status: Full code Critical care time excluding procedures: 83 minutes Plan discussed with Dr. Jordan Plan discussed with: Daughter (Debbie), Other (RN Maria T) My Orders My Orders Orders - WARNER SANCHEZ RESIDENT Procedure Category Date Status Time Fluconazole PHA 06/15/25 In Process 200mg/100ml (Diflucan 10:00 Pureed DIET 06/15/25 Transmitted Breakfast Incentive Spirometry ORDERS 06/15/25 Transmitted 10:28 Basic Metabolic Panel LAB 06/16/25 Verified 04:00 Complete Blood Count LAB 06/16/25 Verified 04:00 Vancomycin,Random LAB 06/16/25 Verified 04:00 * Mechanical Specialist CONS 06/15/25 Transmitted Consult Dietary Evaluation Review Comments: 1. TF Nepro Carbsteady @ 3ml/hr x 24 hr along with Pro-stat 1 pk BID. Start @ 20ml/hr, increase 10ml/hr Q4H until goal is reached. TF at goal volume provides 100% energy & protein needs - 1496 kcal, 89gm protein, 523 ml free water 2. Water flush 240ml Q6H if allowed, adjust PRN 3. TPN if NPO > 7 days 4.Monitor NPO status, lab values, wt trends, I/O Expected Outcomes/Goals: To meet >75% estimated needs Lab values to improve Fu 2-3 days Date of Service: Jun 15, 2025 Billing Provider: JEREMIAS JORDAN MD Common Visit Codes: [id number] CARE 30-74 MIN, [id number] CARE-EACH +30MIN WARNER SANCHEZ Jun 15, 2025 17:23 JEREMIAS JORDAN MD Jun 18, 2025 15:27
--- NOTE | 2025-06-15 17:27 | DVHDSRES ---
Discharge Summary Date of Admission Resident Creating Document: WARNER SANCHEZ RESIDENT Jun 02, 2025 at 17:24 Date of Discharge: Jun 15, 2025 Admitting Diagnosis #Acute metabolic encephalopathy due to cardiac arrest #Cardiac arrest #Cardiac arrest with need of defibrillation #CAD s/p 3x stent #Acute on chronic heart failure with diastolic dysfunction #moderate mitral stenosis #moderate mitral regurgitation #LA enlargement #moderate #septic shock? #Cardiogenic shock? #Hypertensive heart disease #NSTEMI? #Acute respiratory failure [facility] due to cardiac arrest #Pulmonary edema #MICAELA on CKD stage 5 #fluid overload #Transaminitis #Leukocytosis due to sepsis #Anemia normochromic normocytic due to renal disease Wounds: left buttock superficial wound with red granulating tissue Labs/Diagnostic Data: Laboratory Results Test 06/15/25 13:19 06/15/25 02:11 06/13/25 23:00 06/12/25 16:12 POC Glucose 231 mg/dl (70-106) White Blood Count 11.2 10^3/uL (4.4-10.8) Red Blood Count 3.25 10^6/uL (4.0-5.20) Hemoglobin 9.6 g/dL (12.2-16.2) Hematocrit 29.2 % (36.0-46.0) Mean Corpuscular Volume 89.8 fL (80.0-100.0) Mean Corpuscular Hemoglobin 29.6 pg (28.0-32.0) Mean Corpuscular Hemoglobin Concent 33.0 g/dL (32.0-36.0) Red Cell Distribution Width 18.0 % (11.8-14.3) Platelet Count 361 10^3/uL (140-450) Mean Platelet Volume 8.6 fL (6.9-10.8) Neutrophils (%) (Auto) 79.6 % (37.0-80.0) Lymphocytes (%) (Auto) 9.6 % (10.0-50.0) Monocytes (%) (Auto) 9.0 % (0.0-12.0) Eosinophils (%) (Auto) 1.3 % (0.0-7.0) Basophils (%) (Auto) 0.5 % (0.0-2.0) Neutrophils # (Auto) 8.9 10 ^3/uL (1.6-8.6) Lymphocytes # (Auto) 1.1 10 ^3/uL (0.4-5.4) Monocytes # (Auto) 1.0 10 ^3/uL (0-1.3) Eosinophils # (Auto) 0.1 10 ^3/uL (0-0.8) Basophils # (Auto) 0.1 10 ^3/uL (0-0.2) Nucleated Red Blood Cells 0.4 % Sodium Level 141 mmol/L (136-145) Potassium Level 3.8 mmol/L (3.5-5.1) Chloride Level 101 mmol/L (98-107) Carbon Dioxide Level 24 mmol/L (20-31) Anion Gap 16 (5-15) Blood Urea Nitrogen 27 mg/dL (9-23) Creatinine 3.26 mg/dL (0.550-1.02) Glomerular Filtration Rate Calc 14 mL/min (>90) BUN/Creatinine Ratio 8.3 (10.0-20.0) Serum Glucose 139 mg/dL (74-106) Calcium Level 10.1 mg/dL (8.7-10.4) Total Bilirubin 0.5 mg/dL (0.2-1.0) Aspartate Amino Transferase (AST) 27 U/L (13-40) Alanine Aminotransferase (ALT) 21 U/L (7-40) Alkaline Phosphatase 136 U/L (46-116) Total Protein 7.6 g/dL (5.7-8.2) Albumin 4.1 g/dL (3.2-4.8) Vitamin B12 Level 3643 pg/mL (211-911) Random Vancomycin Level 17.4 ug/mL (5-10) Stool Occult Blood Negative (Negative) Stool Occult Blood Sample #3 (Negative) Blood Gas Specimen Type Arterial Blood Gas Sample Site Right radial Blood Gas Patient Temperature 37.0 Arterial Blood Date Drawn [id number] Arterial Blood pH 7.510 (7.350-7.450) Arterial Blood Partial Pressure CO2 33.6 mmHg (32.0-45.0) Arterial Blood Partial Pressure O2 96.7 mmHg (83.0-108.0) Arterial Blood HCO3 26.2 mmol/L (21.0-28.0) Arterial Blood Oxygen Saturation 96.9 % (94.0-98.0) Arterial Blood Base Excess 3.2 mmol/L (-2.0-3.0) Arterial Blood Oxyhemoglobin 95.6 % (94.0-98.0) Arterial Blood Carboxyhemoglobin 1.0 % (0.5-1.5) Arterial Blood Methemoglobin 0.3 % (0.0-1.5) Dagoberto Test Yes Blood Gas Total Hemoglobin 8.90 g/dL (12.0-16.0) Blood Gas Modality Vent - cpap FiO2 % 30.0 Blood Gas Pressure Support 8 Blood Gas PEEP or CPAP 5.0 Test 06/12/25 11:45 06/12/25 07:12 06/12/25 03:20 06/11/25 10:50 Iron Level 25 ug/dL (50-170) Total Iron Binding Capacity 234 ug/dL (250-425) Percent Iron Saturation 10.7 % (15-50) Ferritin 64.3 ng/mL (10-291) Blood Gas Set Respiration Rate 16.0 Blood Gas Tidal Volume 400.0 Magnesium Level 2.8 mg/dL (1.6-2.6) Blood Gas Spontaneous Rate 26 Blood Gas Spontaneous Tidal Volume 296 Test 06/05/25 12:57 06/04/25 02:45 06/03/25 14:09 06/03/25 02:50 Rheumatoid Factor 15.4 IU/mL (<14.0) Hepatitis B Surface Antigen Negative (Negative) D-Dimer, Quantitative 7.19 mg/L FEU (0.0-0.49) Prothrombin Time 11.5 sec (9.3-11.8) Prothrombin Time INR 1.09 (0.9-1.15) Activated Partial Thromboplast Time 27.4 SEC (24.5-34.5) Hemoglobin A1c < 3.8 % A1C (<5.7) Phosphorus Level 5.1 mg/dL (2.4-5.1) B-Type Natriuretic Peptide 444.26 pg/mL (0-100) Triglycerides Level 99 mg/dL (< 150) Cholesterol Level 105 mg/dL (< 200) LDL Cholesterol 49 mg/dL (< 100) HDL Cholesterol 34 mg/dL (40-59) Thyroid Stimulating Hormone (TSH) 0.66 uIU/mL (0.55-4.78) Test 06/02/25 19:57 06/02/25 18:18 06/02/25 10:54 06/02/25 08:49 Troponin I High Sensitivity 101 ng/L (</=34) Influenza Type A Antigen Negative (Negative) Influenza Type B Antigen Negative (Negative) SARS-CoV-2 Antigen (Rapid) Negative (NEGATIVE) Lactic Acid Level 2.1 mmol/L (0.4-2.0) Urine Color Light-yellow (Yellow) Urine Clarity Turbid (Clear) Urine pH 5.5 (5.0-9.0) Urine Specific [place] 1.011 (1.001-1.035) Urine Protein 1+ (Negative) Urine Ketones Negative (Negative) Urine Blood Trace /uL (Negative) Urine Nitrite Negative (Negative) Urine Bilirubin Negative (Negative) Urine Urobilinogen Normal mg/dL (Negative) Urine Leukocyte Esterase 2+ /uL (Negative) Urine RBC 5 /hpf (0 - 4) Urine WBC Clumps Present /hpf (None Seen) Urine Microscopic WBC 92 /HPF (0-5) Urine Squamous Epithelial Cells Few /hpf (<5) Urine Bacteria Few /hpf (None Seen) Urine Mucus Few (None Seen) Urine Glucose 2+ mg/dL (Normal) Urine Opiates Screen Neg (NEGATIVE) Urine Fentanyl Screen Neg (NEGATIVE) Urine Barbiturates Screen Neg (NEGATIVE) Urine Phencyclidine Screen Neg (NEGATIVE) Urine Amphetamines Screen Neg (NEGATIVE) Urine Benzodiazepines Screen Neg (NEGATIVE) Urine Cocaine Screen Neg (NEGATIVE) Urine Cannabinoids Screen Neg (NEGATIVE) Other Laboratory Tests 06/15/25 02:11 Brief Hx & Hospital Course: Patient is a 74-year-old female with a known history of HTN, diabetes mellitus, congestive heart failure with preserved ejection fraction, coronary artery disease (CAD) s/p 3-vessel stenting in 2019 (RCA, LCx, LAD), chronic kidney disease not on dialysis yet but stage 5, hyperlipidemia, and blindness who was brought in by EMS due to worsening shortness of breath. Patient's noted that early in May patient has started to have shortness of breath following which she was admitted at [facility] for 3 days patient was given diuresis and was discharged on Lasix 40 mg b.i.d. with the patient was apparently not that compliant with the medication ended up visiting her casework manager in the outpatient clinic where she was noticed to have respiratory distress and leg swelling following which she was referred to the ER where she got IV Lasix and was eventually discharged home. The casework manager they reported that he was not able to do angiography as patient had poor kidney function. Since then patient was at home but had been having worsening shortness of breath transitioning from NYHA class 3 to 4 and on Thursday morning had severe shortness of breath at rest EMS were called. While at home patient was responding and verbal. Able to the ER patient had severe shortness of breath and was not able to respond verbally and after few minutes while in the bed coded and underwent cardiac pulmonary arrest following which CPR was started and after 1 dose of epinephrine and 3 doses of sodium bicarbonate ROS was achieved in 6 minutes. Initial chest x-ray showed bilateral perihilar airspace opacities representing pulmonary edema. Head CT was done which showed no intracranial hemorrhage or mass effect, mild chronic microvascular ischemic changes and bilateral orbital pthisis bulbi. Initial labs showed elevated serum creatinine and BUN with a GFR of 9. Patient was started on 80 mg b.i.d. IV Lasix. Patient underwent a transthoracic echocardiogram which showed moderate thickening of mitral leaflets, mobile vegetation at the base of posterior mitral leaflet extending into the mid section of the posterior mitral leaflet with diminished excursion of the actual leaflet. There appears to be underlying mitral stenosis with diminished anterior leaflet function however thickening. There appears to be stenosis and thickening of the aortic valve leaflets as well with diminished excursion. LVEF at 50% with normal RV function, [id number] mitral insufficiency and some degree were aortic stenosis was noted, moderate tricuspid regurgitation. With the suspicion of endocarditis casework manager under took with the patient for transesophageal echocardiogram which showed 2-3 mm vegetation in the inferior medial aspect of the base of the posterior mitral leaflet. It appears to be much smaller than on previously evaluated transthoracic echocardiogram. Mild concentric LVH with a LVEF 55% and normal RV function. Moderate mitral annular calcifications and thickening of mitral leaflets with Severe mitral insufficiency which was much worse than noted on the TTE , aortic stenosis noted with mild aortic insufficiency which was not quantified with GIRISH and continuous wave Doppler. There is moderate tricuspid regurgitation. Minute pericardial effusion not hemodynamically significant. Patient has had good urine output with the Lasix but her kidney function was worsening with the elevation of BUN and creatinine following which nephrology recommended hemodialysis for which right subclavian tunneled catheter was inserted by Interventional Radiology and patient has been on hemodialysis since 06/06. sputum culture showed growth of Proteus mirabilis ESBL and with the suspicion of endocarditis patient is on treatment with meropenem and vancomycin. Patient had a bowel movement which was dark and stool occult blood was positive but H&H is stable, prophylactic heparin was stopped. Patient continues to be on minimal ventilator settings with a FiO2 30%, peep of 5, respiratory rate 16, tidal volume 400 mL. Initial blood cultures did not show any growth after 5 days of incubation and repeat blood cultures showing growth after 5 days of incubation. Patient was slowly weaned off sedation and was extubated on 06/12 following which she was put on oxygen via nasal cannula which she has been tolerating well since then. Patient passed the swallow with valve and has been tolerating pureed diet and has been getting up to the chair with the physical therapy. Patient will need further inpatient management for her severe mitral valve insufficiency [facility] given the complexity of her case which were explained to the family and daughter Love who is her plater apprentice. Family agrees with the plan and the patient will be transferred to [facility] for further care. Physical examination neurological: Patient is alert/oriented to person, she is blind, bilateral upper extremity strength 4/5, bilateral lower extremity strength 4/5. Gen - mild conjunctival pallor, no cyanosis, no clubbing, no LAD, no edema . Skin - Patients skin is warm and dry. HEENT - normocephalic, atraumatic, moist mucous membranes. Neck - no LAD, no JVD Pulmonary - B/L equal breath sounds, no significant rales, no wheezing, no stridor. cardiovascular - regular S1,S2 heard, no added sounds, systolic apical grade 4/6 murmur heard. peripheral pulses normal radial 2+, pedal 1+. capillary refill normal <2 secs. GI - soft, nontender abdomen. no hepatospleenomegaly. Bowel sounds normoactive critical care Time spent on discharge planning 83 mins. Operations or Procedures Operative Report - 2 Report Details Date: 06/04/25 Preop Diagnosis: Endocarditis Postop Diagnosis: Endocarditis Surgeon: Natalie Robison MD Anesthesiologist: Deep sedation Anesthesia: Mac, Local Consent: The patient was informed of the risks and benefits of the procedure. These include but are not limited to complications of anesthesia, postoperative infection, incomplete relief of symptoms, recurrence of symptoms, damage to blood vessels, nerves and tendons, deep venous thrombosis, pulmonary embolism and possible need for repeat surgery in the future. Complications: No complications Findings: Mitral valve vegetation Indications for Surgery: Vegetation Name of Procedure Performed Transesophageal echocardiography Procedure Details Procedure Details: Prior full informed consent obtained from family. The patient previously intubated and sedated underwent transesophageal echocardiographic evaluation. Transthoracic ECHO had revealed a mitral vegetation. A transesophageal probe was passed without difficulty. Standard views obtained. Conclusions Technically good study. Sinus rhythm. Mild concentric LVH. Left atrial enlargement. Moderate mitral annular calcification and thickening of the mitral leaflets. The base of the mitral leaflets have diminished excursion however the mid and distal segments appeared to have good aperture and slight prolapse. The aortic valve has moderate calcification and diminished excursion there is [id number] degree of aortic stenosis. The tricuspid is structurally normal. The pulmonic structurally normal. Left ventricular systolic performance is preserved. EF is about 55%. Normal RV function. There is sbryvpwd-[id number] mitral insufficiency. Aortic stenosis noted given aliasing noted across the aortic valves with mild aortic insufficiency. This was not quantified with GIRISH and continuous wave Doppler. There is moderate tricuspid regurgitation. No pulmonic insufficiency identified in the study. The mitral insufficiency appears to be much worse than in previous transthoracic echocardiographic evaluation. There is a pleural effusion. There is a minute pericardial effusion not hemodynamically significant. There appears to be a 2-3 mm vegetation in the inferior medial aspect of the base of the posterior mitral leaflet. It appears to be much smaller than on previously evaluated transthoracic echocardiogram. Condition Guarded Disposition 2 Still a Patient Date of Service: Jun 04, 2025 Billing Provider: NATALIE ROBISON Sr., MD Cardiology Common Codes: 87116-TQSASSJ INP/OBS CARE (High) Cardiology Procedure Codes: 33963-KQC W/IMG DOC INCL PROB ACQ NATALIE ROBISON Sr., MD Jun 04, 2025 17:56 Condition at Discharge: Stable Final Diagnosis/Problems List Acute metabolic encephalopathy from likely hypoxic respiratory failure, resolved Acute on chronic hypoxic respiratory failure likely from pulmonary edema Pulmonary edema likely due to mitral insufficiency/CKD Pneumonia due to Proteus mirabilis ESBL S/p cardiopulmonary arrest with ROSC Arjmzalm-du-utcflc mitral regurgitation Possible infective endocarditis Moderate aortic stenosis NSTEMI likely type 2 from demand ischemia/cardiac arrest h/o CAD s/p PCI with MORGAN MICAELA on CKD likely due to VMN CKD stage 5, not in dialysis S/p tunneled dialysis catheter insertion Possible infective endocarditis Urinary tract infection Pneumonia due to Proteus mirabilis ESBL Type 2 diabetes mellitus Possible upper GI bleed, resolved Discharge Disposition: Acute Care Facility Discharge Instruct/Medications Diet: See Comment Diet comment: pureed diet Activity: Bed rest Follow Up/Referral: fu with amish Medications: per jan Scheduled 1, 25 Dihydroxycholecalciferol (Rocaltrol Capsule), 1 CAP PO DAILY, (Reported) Amlodipine Besylate (Amlodipine Besylate), 1 TAB PO DAILY, (Reported) Aspirin (Aspirin), 81 MG PO DAILY, (Reported) Atorvastatin Calcium (Atorvastatin Calcium), 40 MG PO DAILY, (Reported) Carvedilol (Carvedilol), 1 TAB PO BID, (Reported) Cefdinir (Cefdinir), 1 CAP PO BID Cilostazol (Cilostazol), 100 MG PO BID, (Reported) Famotidine (Acid Caul Puller), 10 MG PO DAILY, (Reported) Furosemide (Furosemide), 1 TAB PO BID, (Reported) Glipizide (Glipizide), 5 MG PO BID, (Reported) Hydralazine HCl (Hydralazine HCl), 1 TAB PO TID, (Reported) Mirtazapine (Mirtazapine Oral Disintegrating Tablet), 1 TAB PO DAILY, (Reported) Multiple Vitamins W/ Minerals (Multivitamin), 1 TAB PO DAILY, (Reported) Sitagliptin (Sitagliptin), 1 TAB PO DAILY, (Reported) Sodium Bicarbonate (Sodium Bicarbonate), 3 TAB PO TID, (Reported) Scheduled PRN Hydrocodone-Acetaminophen (Hydrocodone/Acetaminophen 5-325 mg), 1 TAB PO BIDPRN PRN, (Reported) Discharge Statement: "Patient was advised to return to the ER or call 911 if any headaches, dizziness, shortness of breath, chest pain, abdominal pain, bleeding, fevers, or worsening of medical condition. Patient was counseled about treatment plan, medications, possible side effects, patientverbalized understanding. All questions were answered to the best of my ability. This discharge took greater then 30 minutes in planning, reviewing documentation, counseling the patient, and discussing with other team members." ASSESSMENT ASSESSMENT Assessment Acute metabolic encephalopathy from likely hypoxic respiratory failure, resolved Acute on chronic hypoxic respiratory failure likely from pulmonary edema Pulmonary edema likely due to mitral insufficiency/CKD Pneumonia due to Proteus mirabilis ESBL S/p cardiopulmonary arrest with ROSC Dfkhshby-dv-kconek mitral regurgitation Possible infective endocarditis Moderate aortic stenosis NSTEMI likely type 2 from demand ischemia/cardiac arrest h/o CAD s/p PCI with MORGAN MICAELA on CKD likely due to VMN CKD stage 5, not in dialysis S/p tunneled dialysis catheter insertion Possible infective endocarditis Urinary tract infection Pneumonia due to Proteus mirabilis ESBL Type 2 diabetes mellitus Possible upper GI bleed, resolved Date of Service: Jun 15, 2025 Billing Provider: JEREMIAS JORDAN MD Common Visit Codes: 19084-IXSLTYRH CARE 30-74 MIN, 84476-RYVZMVME CARE-EACH +30MIN WARNER SANCHEZ RESIDENT Jun 15, 2025 17:27 JEREMIAS JORDAN MD Jun 18, 2025 15:29
--- NOTE | 2025-06-15 17:42 | DVHPN2 ---
Progress Note Date Seen: Jun 15, 2025 Medical Necessity Reason Pt with a Central, PICC or Fol: Yes The following are medically ne: Stevens Catheter Reason for stevens catheter: Strict I&O Objective vital signs Vital Sign Date Time Temp Pulse Resp B/P (MAP) Pulse Ox O2 Delivery O2 Flow Rate FiO2 06/15/25 17:17 134/73 06/15/25 16:00 96 06/15/25 13:45 15 100 06/15/25 12:00 Nasal Cannula* 2 28 06/15/25 08:45 98.8 98.8 Total Intake and Output 06/14/25 06/14/25 06/15/25 15:00 23:00 07:00 Intake Total 470 ml 100 ml Output Total 1000 ml 40 ml Balance -530 ml 60 ml medications Current Medications Medications Dose Ordered Sig/Rosa Route Start Time Stop Time Status Last Admin Dose Admin Pantoprazole Sodium 40 mg DAILY IV 06/03/25 10:00 06/15/25 10:16 40 MG Dextrose 50 ml UD PRN IV 06/02/25 17:45 Diagnostic Test (Pha) 1 strip Q6HR 06/02/25 18:00 06/15/25 17:17 1 STRIP Furosemide 40 mg BIDD IV 06/05/25 18:00 06/15/25 17:17 40 MG Meropenem 50 ml @ 17 mls/hr DAILY IV 06/06/25 16:45 06/15/25 10:15 17 MLS/HR Hydralazine HCl 10 mg Q6HP PRN IV 06/07/25 06:00 06/07/25 06:19 10 MG Epoetin Graham-epbx 10,000 unit MWF SC 06/12/25 10:30 06/12/25 14:23 10,000 UNIT Albuterol 2.5 mg Q6HR NEB 06/12/25 18:00 06/15/25 07:09 2.5 MG Ipratropium [place] 0.5 mg Q6HR NEB 06/12/25 18:00 06/15/25 07:09 0.5 MG Iron Sucrose 110 ml @ 110 mls/hr DAILY@1200 IV 06/12/25 20:00 06/16/25 12:59 06/15/25 14:44 110 MLS/HR Lorazepam 0.25 mg Q6HP PRN IV 06/13/25 14:15 Enteral Nutritional Formula 1,000 ml 30ML/HR GT 06/13/25 14:15 06/14/25 12:04 1,000 ML Vancomycin HCl 0 ml @ 0 mls/hr UD IV 06/14/25 08:45 Acetaminophen 650 mg Q6HP PRN PO 06/14/25 11:00 06/14/25 16:42 650 MG Atorvastatin Calcium 40 mg HS PO 06/14/25 22:00 06/14/25 22:00 40 MG Fluconazole 100 ml @ 100 mls/hr DAILY IV 06/15/25 10:00 06/15/25 10:15 100 MLS/HR Aspirin 81 mg DAILY PO 06/16/25 10:00 Examination: GENERAL:Abnormal, CVS:Normal laboratory and microbiology Laboratory Tests 06/15/25 02:11 Test 06/15/25 02:11 Range/Units Serum Glucose 139 H 74-106 mg/dL Microbiology Date/Time Source Procedure Growth Status 06/06/25 08:45 Blood Blood Culture - Final NO GROWTH AFTER 5 DAYS OF INCUBATION. Complete 06/03/25 17:20 Nose MRSA Screen - Final Complete 06/02/25 08:54 Sputum Gram Stain - Final Complete 06/02/25 08:54 Respiratory Culture - Final Proteus mirabilis - ESBL Complete 06/02/25 08:49 Voided Urine Urine Culture - Final Complete Problem List/Assessment/Plan Problem List/Assessment/Plan Chronic kidney disease stage 5 with progression to end-stage renal disease Coronary artery disease Cardiac arrest Acute respiratory failure extubated Diabetes Hypertension anemia due to ckd HD tomorrow HD chairtime ongoing epogen 3x a week renal diet Plan discussed with: Patient Dietary Evaluation Review Comments: 1. TF Nepro Carbsteady @ 3ml/hr x 24 hr along with Pro-stat 1 pk BID. Start @ 20ml/hr, increase 10ml/hr Q4H until goal is reached. TF at goal volume provides 100% energy & protein needs - 1496 kcal, 89gm protein, 523 ml free water 2. Water flush 240ml Q6H if allowed, adjust PRN 3. TPN if NPO > 7 days 4.Monitor NPO status, lab values, wt trends, I/O Expected Outcomes/Goals: To meet >75% estimated needs Lab values to improve Fu 2-3 days Total Time (mins): 33 CATHRYN SOLOMON MD Jun 15, 2025 17:42
[2025-06-15] MEDS ORDERED: DEXTROSE (50%) 50ML SYRG IV PRN (17:45)
[2025-06-16] MEDS ORDERED: ACCU-CHEK COMFORT CURVE STRIP VI SCH (07:00)
[2025-06-16] MEDS ORDERED: InsuLIN REG 1unit/0.01ml Soln (100units/ml) SC SCH (07:00)
== END 2025-06-15 19:40 | disposition short-term general hospital (02) | DRG 870 ==
LOC: EDBD 08:10 → EDSEX 08:10 → ER 08:10 → OVERFLOW 17:24 → ER 17:26 → ICU WEST 21:08
PROVIDERS: ADMIT Internal Medicine; ATTEND Internal Medicine
PROC: 5A1955Z Respiratory Ventilation, Greater than 96 Consecutive Hours (ICD-10-PCS; 2025-06-02)
PROC: 0BH17EZ Insertion of Endotracheal Airway into Trachea, Via Natural or Artificial Opening (ICD-10-PCS; 2025-06-02)
PROC: 5A1221J Performance of Cardiac Output, Continuous, Automated (ICD-10-PCS; 2025-06-02)
PROC: 06HY33Z Insertion of Infusion Device into Lower Vein, Percutaneous Approach (ICD-10-PCS; 2025-06-02)
PROC: 5A2204Z Restoration of Cardiac Rhythm, Single (ICD-10-PCS; 2025-06-02)
PROC: 30233N1 Transfusion of Nonautologous Red Blood Cells into Peripheral Vein, Percutaneous Approach (ICD-10-PCS; principal; 2025-06-03)
PROC: B24BZZ4 Ultrasonography of Heart with Aorta, Transesophageal (ICD-10-PCS; 2025-06-04)
PROC: 5A1D70Z Performance of Urinary Filtration, Intermittent, Less than 6 Hours Per Day (ICD-10-PCS; 2025-06-06)
PROC: 0JH63XZ Insertion of Tunneled Vascular Access Device into Chest Subcutaneous Tissue and Fascia, Percutaneous Approach (ICD-10-PCS; 2025-06-06)
PROC: 02H633Z Insertion of Infusion Device into Right Atrium, Percutaneous Approach (ICD-10-PCS; 2025-06-06)
PROC: B548ZZA Ultrasonography of Superior Vena Cava, Guidance (ICD-10-PCS; 2025-06-06)
PROC: B5181ZA Fluoroscopy of Superior Vena Cava using Low Osmolar Contrast, Guidance (ICD-10-PCS; 2025-06-06)
PROC: 5A1D70Z Performance of Urinary Filtration, Intermittent, Less than 6 Hours Per Day (ICD-10-PCS; 2025-06-07)
PROC: 05H933Z Insertion of Infusion Device into Right Brachial Vein, Percutaneous Approach (ICD-10-PCS; 2025-06-09)
PROC: B54MZZA Ultrasonography of Right Upper Extremity Veins, Guidance (ICD-10-PCS; 2025-06-09)
PROC: 5A1D70Z Performance of Urinary Filtration, Intermittent, Less than 6 Hours Per Day (ICD-10-PCS; 2025-06-10)
PROC: 5A1D70Z Performance of Urinary Filtration, Intermittent, Less than 6 Hours Per Day (ICD-10-PCS; 2025-06-12)
PROC: 5A1D70Z Performance of Urinary Filtration, Intermittent, Less than 6 Hours Per Day (ICD-10-PCS; 2025-06-14)
DX: A41.59 Other Gram-negative sepsis (principal); I46.9 Cardiac arrest, cause unspecified; I21.A1 Myocardial infarction type 2; G92.8 Other toxic encephalopathy; I33.0 Acute and subacute infective endocarditis; R65.21 Severe sepsis with septic shock; J96.21 Acute and chronic respiratory failure with hypoxia; N18.6 End stage renal disease; J15.69 Pneumonia due to other Gram-negative bacteria; I50.33 Acute on chronic diastolic (congestive) heart failure; N17.0 Acute kidney failure with tubular necrosis; I31.39 Other pericardial effusion (noninflammatory); G93.1 Anoxic brain damage, not elsewhere classified; K92.2 Gastrointestinal hemorrhage, unspecified; E87.4 Mixed disorder of acid-base balance; I13.2 Hypertensive heart and chronic kidney disease with heart failure and with stage 5 chronic kidney disease, or end stage renal disease; N39.0 Urinary tract infection, site not specified; Z16.12 Extended spectrum beta lactamase (ESBL) resistance; Z20.822 Contact with and (suspected) exposure to COVID-19; D63.1 Anemia in chronic kidney disease; I05.0 Rheumatic mitral stenosis; Z99.2 Dependence on renal dialysis; E11.22 Type 2 diabetes mellitus with diabetic chronic kidney disease; I07.1 Rheumatic tricuspid insufficiency; I05.8 Other rheumatic mitral valve diseases; H44.523 Atrophy of globe, bilateral; I35.0 Nonrheumatic aortic (valve) stenosis; E78.5 Hyperlipidemia, unspecified; E83.52 Hypercalcemia; I25.10 Atherosclerotic heart disease of native coronary artery without angina pectoris; R74.01 Elevation of levels of liver transaminase levels; H54.8 Legal blindness, as defined in USA; Z95.5 Presence of coronary angioplasty implant and graft; Z82.49 Family history of ischemic heart disease and other diseases of the circulatory system
CPT/HCPCS: 31500; 36415; 36430; 36556; 36558; 36600; 70450; 71045; 76937; 80048; 80053; 80061; 80202; 80307; 81001; 82270; 82607; 82728; 82805; 82962; 83036; 83540; 83550; 83605; 83735; 83880; 84100; 84443; 84484; 85014; 85018; 85025; 85379; 85610; 85730; 86431; 86850; 86900; 86901; 86920; 87040; 87070; 87077; 87081; 87086; 87186; 87205; 87340; 87426; 87804; 90935; 92610; 92950; 93005; 93306; 93312; 93970; 94002; 94003; 94640; 95819; 97110; 97116; 97163; 97530; 99152; 99291; 99292; C1894; G0378; J0131; J0169; J1450; J1642; J1756; J1815; J2185; J2470; J3480; P9047

== ENCOUNTER 2025-09-04 10:00 | Inpatient (IN) | payer OTHER, MEDICAID ==
[~2025-09-04] VITALS: Ht 154.9 cm; Wt 66.5 kg
[~2025-09-04 10:00] MED LIST changes: +CALC0.25 PO; +CALC667C PO
[2025-09-04 10:16] VITALS: PULSE 132; RESP 29; O2SAT 92
--- NOTE | 2025-09-04 11:05 | ED.PDOC ---
SOB-HPI HPI Comments 75 year old female with PMHx anemia, CHF, CKF, DM, ESRD, [place] presents to the ED via EMS with a chief complaint of shortness of breath onset 4 days. Patient has been experiencing shortness of breath as well as productive cough for the past 4 day. Upon EMS arrival, patient was on 4L NC, was placed on 6L, O2 improved to 94%. Per EMS, patient fell 4 days ago, landed on her chest, since then has been experiencing rib pain. During assessment patient was tachycardiac with HR 130, on 5L O2 sat was 88%. Patient is a poor historian. Gets dialysis Thursday, . Denies LOC, head injury, nausea, vomiting, diarrhea, dizziness, blurred vision, abdominal pain, dysuria, hematuria, fever, chills, sore throat. No other symptoms or modifying factors present at this time. Chief Complaint: Shortness of Breath Time Seen by MD: 10:50 Primary Care Provider: UNKNOWN Reviewed notes: Medications, Allergies Information Source: Patient, Emergency Med Personnel Mode of Arrival: EMS Severity: Moderate Timing: Days Duration: Since onset Context: At Rest PE Risk Factors: None History of: CHF Prehospital treatment: Oxygen Modifying Factors: Nothing Associated Signs and Symptoms: Cough If cough with SOB: Productive Past Medical History PAST MEDICAL HISTORY: Anemia, CHF, CKF, DM, ESRD, [place] Surgical History: PTCA JAVA J2EE ARCHITECT History: No Pertinent JAVA J2EE ARCHITECT History Family History Family History: Reviewed,noncontributory to illness, No family hx of Cancer, No family hx of DM, No family hx of Heart ivette, No family hx of HTN, No family hx ofKidney ivette, No family hx of Liver ivette, No family hx of Lung ivette, No family hx of Stroke Social History Smoker: Non-Smoker Alcohol: Denies ETOH Use Drugs: Denies Drug Use Lives In: Home Constitutional: denies: chills, diaphoresis, fatigue, fever, malaise, sweats, weakness, others EENTM: denies: blurred vision, double vision, ear bleeding, ear discharge, ear drainage, ear pain, ear ringing, eye pain, eye redness, hearing loss, mouth pain, mouth swelling, nasal discharge, nose bleeding, nose congestion, nose pain, photophobia, tearing, throat pain, throat swelling, voice changes, others Respiratory: reports: cough, shortness of breath; denies: hemoptysis, orthopnea, SOB at rest, SOB with excertion, stridor, wheezing, others Cardiovascular: denies: chest pain, dizzy spells, diaphoresis, Dyspnea on exertion, edema, irregular heart beat, left arm pain, lightheadedness, palpitations, PND, syncope, others Gastrointestinal: denies: abdomen distended, abdominal pain, blood streaked bowels, constipated, diarrhea, dysphagia, difficulty swallowing, hematemesis, melena, nausea, poor appetite, poor fluid intake, rectal bleeding, rectal pain, vomiting, others Genitourinary: denies: abnormal vagina bleeding, burning, dyspareunia, dysuria, flank pain, frequency, hematuria, incontinence, pain, , vagina discharge, urgency, others Neurological: denies: dizziness, fainting, headache, left sided numbness, left sided weakness, numbness, paresthesia, pre-existing deficit, right sided numbness, right sided weakness, seizure, speech problems, tingling, tremors, weakness, others Musculoskeletal: denies: back pain, gout, joint pain, joint swelling, muscle pain, muscle stiffness, neck pain, others Integumetry: denies: bruises, change in color, change in hair/nails, dryness, laceration, lesions, lumps, rash, wounds, others Allergic/Immunocompromised: denies: Difficulty Healing, Frequent Infections, Hives, Itching, others Hematologic/Lymphatic: denies: anemia, blood clots, easy bleeding, easy bruising, swollen glands, others Endocrine: denies: excessive hunger, excessive sweating, excessive thirst, excessive urination, flushing, intolerance to cold, intolerance to heat, un explained weight gain, unexplained weight loss, others Psychiatric: denies: anxiety, bipolar disorder, depression, hopeless, panic disorder, schizophrenia, sleepless, suicidal, others All Other Systems: Reviewed and Negative Physical Exam General Appearance: Moderate Distress HEENT: Normal ENT Inspection, Pharynx Normal, TMs Normal Neck: Full Range of Motion, Non-Tender, Normal, Normal Inspection Respiratory: Chest Non-Tender, Lungs Clear, No Accessory Muscle Use, No Respiratory Distress, Normal Breath Sounds Cardiovascular: Tachycardia Breast Exam: Deferred Gastrointestinal: No Organomegaly, Non Tender, No Pulsatile Mass, Normal Bowel Sounds, Soft Genitalia: Deferred Pelvic: Deferred Rectal: Deferred Extremities: No calf tenderness Musculoskeletal : Apperance: Normal Neurologic: Alert Cerebellar Function: NOT DONE Reflexes: NOT DONE Skin: Normal Color Peripheral Pulses: 3+ Radial (R), 3+ Radial (L) Lymphatic: No Adenopathy Was a procedure done? Was a procedure done?: No Differential Dx Differential Diagnosis: Anxiety, Asthma, Bronchitis, CHF, COPD X-Ray, Labs, Meds, VS Vital Signs Date Time Temp Pulse Resp B/P (MAP) Pulse Ox O2 Delivery O2 Flow Rate FiO2 09/04/25 16:00 99.7 116 34 103/58 (73) 100 99.7 09/04/25 14:52 101.0 09/04/25 14:00 101.0 125 34 113/63 (80) 100 101.0 09/04/25 12:30 101.6 09/04/25 12:00 101.6 124 34 139/85 (103) 100 101.6 09/04/25 12:00 124 09/04/25 11:30 126 38 100 Non-Rebreather 12 N/A 09/04/25 10:21 98.7 123 35 143/80 (101) 91 98.7 09/04/25 10:16 132 29 92 Nasal Cannula* 5 40 09/04/25 10:06 98.1 130 24 168/90 94 98.1 09/04/25 10:05 127 Lab Test 09/04/25 13:46 09/04/25 11:51 09/04/25 11:00 Range/Units Lactic Acid Level 1.3 2.1 *H 0.4-2.0 mmol/L Troponin I High Sensitivity 351 *H 101 *H 58 *H </=34 ng/L White Blood Count 9.6 4.4-10.8 10^3/uL Red Blood Count 2.86 L 4.0-5.20 10^6/uL Hemoglobin 9.0 L 12.2-16.2 g/dL Hematocrit 26.9 L 36.0-46.0 % Mean Corpuscular Volume 93.8 80.0-100.0 fL Mean Corpuscular Hemoglobin 31.5 28.0-32.0 pg Mean Corpuscular Hemoglobin Concent 33.6 32.0-36.0 g/dL Red Cell Distribution Width 19.4 H 11.8-14.3 % Platelet Count 261 140-450 10^3/uL Mean Platelet Volume 8.4 6.9-10.8 fL Neutrophils (%) (Auto) 82.2 H 37.0-80.0 % Lymphocytes (%) (Auto) 11.4 10.0-50.0 % Monocytes (%) (Auto) 5.9 0.0-12.0 % Eosinophils (%) (Auto) 0.1 0.0-7.0 % Basophils (%) (Auto) 0.4 0.0-2.0 % Neutrophils # (Auto) 7.9 1.6-8.6 10 ^3/uL Lymphocytes # (Auto) 1.1 0.4-5.4 10 ^3/uL Monocytes # (Auto) 0.6 0-1.3 10 ^3/uL Eosinophils # (Auto) 0 0-0.8 10 ^3/uL Basophils # (Auto) 0 0-0.2 10 ^3/uL Nucleated Red Blood Cells 0.2 % Sodium Level 138 136-145 mmol/L Potassium Level 4.0 3.5-5.1 mmol/L Chloride Level 101 98-107 mmol/L Carbon Dioxide Level 20 20-31 mmol/L Anion Gap 17 H 5-15 Blood Urea Nitrogen 54 H 9-23 mg/dL Creatinine 4.70 H 0.550-1.02 mg/dL Glomerular Filtration Rate Calc 9 >90 mL/min BUN/Creatinine Ratio 11.5 10.0-20.0 Serum Glucose 94 74-106 mg/dL Calcium Level 7.3 L 8.7-10.4 mg/dL Total Bilirubin 0.4 0.2-1.0 mg/dL Aspartate Amino Transferase (AST) 26 13-40 U/L Alanine Aminotransferase (ALT) 18 7-40 U/L Alkaline Phosphatase 84 46-116 U/L B-Type Natriuretic Peptide 438.40 0-100 pg/mL Total Protein 7.3 5.7-8.2 g/dL Albumin 3.7 3.2-4.8 g/dL Current Medications Medications (Trade) Dose Ordered Sig/Rosa Route Start Time Stop Time Status Last Admin Acetaminophen (Tylenol Tablet) 650 mg ONCE ONCE PO 09/04/25 12:30 09/04/25 12:31 DC 09/04/25 12:30 Piperacillin Sod/ Tazobactam Sod 100 ml @ 100 mls/hr ONCE ONCE IV 09/04/25 12:30 09/04/25 13:29 DC 09/04/25 12:30 Azithromycin 250 ml @ 125 mls/hr ONCE ONCE IV 09/04/25 12:30 09/04/25 14:29 DC 09/04/25 12:[address] [address] Ph: [phone] DIAGNOSTIC IMAGING Diagnostic Imaging Report : [id number] Signed PATIENT: PATRICIA CARBALLO ACCT: [id number] UNIT: [id number] : 1950 LOC: ER ROOM / BED: / AGE / SEX: 75 / F ADM STATUS: REG ER SERVICE 47 ORDERING PHYSICIAN: RIGOBERTO NEWMAN MD PROCEDURE(s): CXRP - CHEST PORTABLE REASON: sob ORDER NUMBER(s): [id number], ACCESSION NUMBER(s): [id number] INDICATION: sob TECHNIQUE: Frontal view of the chest. COMPARISON: XY CHEST PORTABLE on DOS: 06/15/25, XY CHEST XRAY 1 VIEW on DOS: 06/14/25, XY CHEST PORTABLE on DOS: 06/13/25, XY CHEST XRAY 1 VIEW on DOS: 06/13/25, XY CHEST XRAY 1 VIEW on DOS: 06/13/25 FINDINGS: Tunneled right hemodialysis catheter tip in the cavoatrial junction. Cardiomegaly. There is no evidence of pleural disease. . The bony structures of the chest are intact without fracture. IMPRESSION: 1. Cardiomegaly with pulmonary edema. ATED BY: NU CROWELL MD DICTATED DATE/TIME: 09/04/251123 SIGNED BY: NU CROWELL MD SIGNED DATE/TIME: 09/04/251123 CC: Patient came in because of shortness a breath. Chest x-ray reviewed does show edema. Answering questions. Tachycardia. Chronic condition. Spoke with [place] physician. Possible sepsis. Establish intravenous access. Was given antibiotics. Cardiac marker elevated. Was given Lovenox. [place] approved inpatient admission.[id number]. Time of 1ST Reevaluation: 11:20 Reevaluation 1ST: Unchanged Patient Education/Counseling: Diagnosis, Treatment, Prognosis Family Education/Counseling: No Family Present SEPSIS Sepsis Screen Date sepsis recognized/suspect: Sep 04, 2025 Time Sepsis recognized/suspect: 1009 Recent Procedure: No On Antibiotic Therapy: No Respiratory Rate >20: Yes Heart Rate >90: Yes Temp<36 C (96.8 F) or >38.3 C: No SBP <90 or MAP <65 mmHG: No New Acute Mental Status Change: No Is the patient on CPAP, BIPAP,: No Physician Orders Chest Portable (09/04/25 10:48) Blood Culture (09/04/25 10:48) *[facility] (09/04/25 10:48) Electrocardigram (09/04/25 12:02) Vital Signs Date Time Temp Pulse Resp B/P (MAP) Pulse Ox O2 Delivery O2 Flow Rate FiO2 09/04/25 16:00 99.7 116 34 103/58 (73) 100 99.7 09/04/25 14:52 101.0 09/04/25 14:00 101.0 125 34 113/63 (80) 100 101.0 09/04/25 12:30 101.6 09/04/25 12:00 101.6 124 34 139/85 (103) 100 101.6 09/04/25 12:00 124 09/04/25 11:30 126 38 100 Non-Rebreather 12 N/A 09/04/25 10:21 98.7 123 35 143/80 (101) 91 98.7 09/04/25 10:16 132 29 92 Nasal Cannula* 5 40 09/04/25 10:06 98.1 130 24 168/90 94 98.1 09/04/25 10:05 127 Laboratory Tests Test 09/04/25 11:00 09/04/25 13:46 Lactic Acid Level 2.1 mmol/L (0.4-2.0) *H 1.3 mmol/L (0.4-2.0) White Blood Count 9.6 10^3/uL (4.4-10.8) Medications Medications Dose Ordered Sig/Rosa Route Start Time Stop Time Status Last Admin Dose Admin Acetaminophen 650 mg ONCE ONCE PO 09/04/25 12:30 09/04/25 12:31 DC 09/04/25 12:30 Azithromycin 250 ml @ 125 mls/hr ONCE ONCE IV 09/04/25 12:30 09/04/25 14:29 DC 09/04/25 12:30 Piperacillin Sod/ Tazobactam Sod 100 ml @ 100 mls/hr ONCE ONCE IV 09/04/25 12:30 09/04/25 13:29 DC 09/04/25 12:30 Departure 1 Departure Time of Disposition: 17:40 Impression: Primary Impression: CHF exacerbation Qualified Codes: I50.43 - Acute on chronic combined systolic (congestive) and diastolic (congestive) heart failure Additional Impression: Non-STEMI (non-ST elevated myocardial infarction) Disposition: ADMITTED INPATIENT Admit to: Med Surg Condition: Guarded Critical Care Note Critical Care Time?: Yes (90 min-critical care time only) Stability Stability form required: No Heart Score Heart Score: Heart Score Response (Comments) Value History Slightly Suspicious 0 EKG Normal 0 Age >65 2 Risk Factors >3 or Hx ASHD 2 Troponin >3 x's Normal limit 2 Total 6 I personally scribed for RIGOBERTO NEWMAN MD ([email or web address]) on 09/04/25 at 11:05. Electronically submitted by Miroslava March ([email or web address]). I personally scribed for RIGOBERTO NEWMAN MD ([email or web address]) on 09/04/25 at 13:16. Electronically submitted by Miroslava March ([email or web address]). RIGOBERTO NEWMAN MD Sep 04, 2025 11:05
--- NOTE | 2025-09-04 11:27 | DVH ---
INDICATION: sob TECHNIQUE: Frontal view of the chest. COMPARISON: XY CHEST PORTABLE on DOS: 06/15/25, XY CHEST XRAY 1 VIEW on DOS: 06/14/25, XY CHEST PORTABLE on DOS: 06/13/25, XY CHEST XRAY 1 VIEW on DOS: 06/13/25, XY CHEST XRAY 1 VIEW on DOS: 06/13/25 FINDINGS: Tunneled right hemodialysis catheter tip in the cavoatrial junction. Cardiomegaly. There is no evide nce of pleural disease. . The bony structures of the chest are intact without fracture. IMPRESSION: 1. Cardiomegaly with pulmonary edema.
[2025-09-04 11:29] LABS: Hematocrit 26.9 % (36.0-46.0); Hemoglobin 9.0 g/dL (12.2-16.2); Mean Corpuscular Hemoglobin 31.5 pg (28.0-32.0); Mean Corpuscular Volume 93.8 fL (80.0-100.0); Nucleated Red Blood Cells % 0.2 %
[2025-09-04 11:30] VITALS: PULSE 126; RESP 38; O2SAT 100
[2025-09-04 11:41] LABS: Alanine Aminotransferase 18 U/L (7-40); Albumin 3.7 g/dL (3.2-4.8); Alkaline Phosphatase 84 U/L (46-116); Anion Gap 17 (5-15); BUN/Creatinine Ratio 11.5 (10.0-20.0); Bilirubin, Total 0.4 mg/dL (0.2-1.0); Chloride 101 mmol/L (98-107); Glucose 94 mg/dL (74-106); Potassium 4.0 mmol/L (3.5-5.1); Sodium 138 mmol/L (136-145); Total Protein 7.3 g/dL (5.7-8.2)
[2025-09-04 11:53] LABS: Blood Urea Nitrogen 54 mg/dL (9-23); Calcium 7.3 mg/dL (8.7-10.4); Carbon Dioxide 20 mmol/L (20-31)
[2025-09-04 11:54] LABS: Lactic Acid w/Reflex 2.1 mmol/L (0.4-2.0)
[2025-09-04] MEDS: ACETAMINOPHEN 325 MG TAB PO ONE (12:30)
[2025-09-04] MEDS: AZITHROMYCIN 500MG/ 250ML 250 ML IV ONE (12:30)
[2025-09-04] MEDS: PIPERACILLIN-TAZOB 3.375GM 100 ML IV ONE (12:30)
--- NOTE | 2025-09-04 13:13 | ECG ---
[facility] Test Date: 2025-09-04 Test Time: 10:05:57 Pat Name: PATRICIA CARBALLO Department: [facility] ED Patient ID: [facility]-[id number] Room: Gender: F Manager Stars: ZOEY : 1950 Requested By: RIGOBERTO NEWMAN Order Number: [id number] Reading MD: Norm Robison Measurements Intervals [place] Rate: 127 P: 40 DC: 121 QRS: -2 QRSD: 88 T: 55 QT: 330 QTc: 480 Interpretive Statements Sinus tachycardia Ventricular premature complex Electronically Signed On 09-04-2025 15:19:17 PDT by Norm Robison Please click the below link to view image of tracing.
[2025-09-04 19:07] VITALS: BP 13/58; PULSE 116; PULSE 121; RESP 18; TEMP 99.7; O2SAT 93; O2SAT 99
[2025-09-04] MEDS ORDERED: FUROSEMIDE INJECTION 100 MG in SODIUM CHL 0.9% 100 ML IV ONE (19:15)
[2025-09-04] MEDS: IPRATROPIUM BROM 0.5 MG/2.5ML INH SOL NEB ONE (19:26)
[2025-09-04] MEDS: NOREPINEPHRINE 8 MG/250ML KIT 250 ML IV SCH (19:30)
[2025-09-04] MEDS ORDERED: DEXTROSE (50%) 50ML SYRG IV PRN (19:30)
[2025-09-04] MEDS ORDERED: ONDANSETRON HCL 4 MG/2 ML VIAL IV PRN (19:30)
[2025-09-04] MEDS: MIDODRINE HCL 10 MG TAB PO SCH (19:33)
[2025-09-04] MEDS: BUMETANIDE 2.5mg/10ml (0.25 mg/ml) INJ IV ONE ×2 (19:53→23:21)
[2025-09-04 20:00] VITALS: RESP 38; O2SAT 100
[2025-09-04 20:15] VITALS: BP 133/77; PULSE 112; O2SAT 96
[2025-09-04 21:53] VITALS: BP 122/72; PULSE 102; O2SAT 99
[2025-09-04] MEDS: ACCU-CHEK COMFORT CURVE STRIP VI SCH (22:23)
[2025-09-04] MEDS: InsuLIN REG 1unit/0.01ml Soln (100units/ml) SC SCH (22:28)
[2025-09-04] MEDS: ATORVASTATIN 20 MG TAB PO SCH (22:29)
[2025-09-04] MEDS: SODIUM BICARBONATE 650 MG TAB PO SCH (22:30)
--- NOTE | 2025-09-04 23:20 | DVHHP2 ---
History of Present Illness Reason for Visit: Shortness for breath History of Present Illness 75-year-old female presents for evaluation of shortness for breath. Patient has a history of end-stage renal disease dialysis dependent also legally blind. She states that three days ago she had a fall in her restroom where she fell and hit her chest against the toilet. Reports bilateral rib pain and unable to take deep breaths. She also complains of having a productive cough with yellow phlegm and chills. No chest pain. Past Medical History End-stage renal disease, mi, diabetes mellitus, CHF, anemia, legally blind Past Surgical History PTCA, dialysis access Family History Noncontributory Smoke: No ALCOHOL: none Drugs: None Lives: with Family Review of Systems Review of Systems Review of systems are currently negative otherwise addressed in HPI. Allergies: Coded Allergies: NO KNOWN ALLERGIES (Unverified , 08/26/19) Medications Current Medications Medications Dose Ordered Sig/Rosa Route Start Time Stop Time Status Last Admin Dose Admin Levalbuterol HCl 0.625 mg Q6HR NEB 09/05/25 00:00 Norepinephrine Bitartrate 250 ml @ 3.75 mls/hr Q24H IV 09/04/25 19:30 Ceftriaxone Sodium 50 ml @ 100 mls/hr DAILY@09 IV 09/05/25 09:00 Azithromycin 250 ml @ 125 mls/hr DAILY IV 09/05/25 10:00 Calcium Acetate 667 mg TIDWMEALS PO 09/05/25 08:00 Sodium Bicarbonate 650 mg BID PO 09/04/25 22:00 09/04/25 22:30 650 MG Aspirin 162 mg DAILY PO 09/05/25 10:00 Atorvastatin Calcium 40 mg HS PO 09/04/25 22:00 09/04/25 22:29 40 MG Diagnostic Test (Pha) 1 strip ACHS 09/04/25 22:00 09/04/25 22:23 1 STRIP Insulin Human Regular ACHS SC 09/04/25 22:00 09/04/25 22:28 3 UNITS Dextrose 50 ml UD PRN IV 09/04/25 19:30 Ondansetron HCl 4 mg Q4HP PRN IV 09/04/25 19:30 Acetaminophen 650 mg Q6HP PRN PO 09/04/25 19:30 Midodrine 5 mg TIDWM PO 09/05/25 08:00 Exam Vital Signs Vital Signs Date Time Temp Pulse Resp B/P (MAP) Pulse Ox O2 Delivery O2 Flow Rate FiO2 09/04/25 21:53 102 122/72 99 Nasal BiPAP Mask 40 09/04/25 21:30 24 09/04/25 19:58 100.8 100.8 09/04/25 19:07 15.0 Exam Gen: 75-year-old female in mild distress Skin: Warm, dry, normal color and texture, no rash. HEENT: Normocephalic atraumatic, mucous membranes moist and pink. Neck: Cervical and supraclavicular nodes normal without enlargement, trachea is midline, thyroid gland is normal without masses. Pulmonary: Clear to auscultation and percussion bilaterally. Cardiac: Regular rate and rhythm. No murmur Abdomen: Soft, nontender, nondistended, bowel sounds present all 4 quadrants, no guarding, no rigidity, no organomegaly. Extremities: No cyanosis, clubbing, no edema Neuro: Cranial nerves II through XII grossly intact, normal affect and speech, no focal motor deficits. Labs/Xrays ORDERING PHYSICIAN: RIGOBERTO NEWMAN MD PROCEDURE(s): CXRP - CHEST PORTABLE REASON: sob ORDER NUMBER(s): [id number], ACCESSION NUMBER(s): [id number] INDICATION: sob TECHNIQUE: Frontal view of the chest. COMPARISON: XY CHEST PORTABLE on DOS: 06/15/25, XY CHEST XRAY 1 VIEW on DOS: 06/14/25, XY CHEST PORTABLE on DOS: 06/13/25, XY CHEST XRAY 1 VIEW on DOS: 06/13/25, XY CHEST XRAY 1 VIEW on DOS: 06/13/25 FINDINGS: Tunneled right hemodialysis catheter tip in the cavoatrial junction. Cardiomegaly. There is no evidence of pleural disease. . The bony structures of the chest are intact without fracture. IMPRESSION: 1. Cardiomegaly with pulmonary edema. Labs Test 09/04/25 13:46 09/04/25 11:00 Range/Units Lactic Acid Level 1.3 0.4-2.0 mmol/L Troponin I High Sensitivity 351 *H </=34 ng/L White Blood Count 9.6 4.4-10.8 10^3/uL Red Blood Count 2.86 L 4.0-5.20 10^6/uL Hemoglobin 9.0 L 12.2-16.2 g/dL Hematocrit 26.9 L 36.0-46.0 % Mean Corpuscular Volume 93.8 80.0-100.0 fL Mean Corpuscular Hemoglobin 31.5 28.0-32.0 pg Mean Corpuscular Hemoglobin Concent 33.6 32.0-36.0 g/dL Red Cell Distribution Width 19.4 H 11.8-14.3 % Platelet Count 261 140-450 10^3/uL Mean Platelet Volume 8.4 6.9-10.8 fL Neutrophils (%) (Auto) 82.2 H 37.0-80.0 % Lymphocytes (%) (Auto) 11.4 10.0-50.0 % Monocytes (%) (Auto) 5.9 0.0-12.0 % Eosinophils (%) (Auto) 0.1 0.0-7.0 % Basophils (%) (Auto) 0.4 0.0-2.0 % Neutrophils # (Auto) 7.9 1.6-8.6 10 ^3/uL Lymphocytes # (Auto) 1.1 0.4-5.4 10 ^3/uL Monocytes # (Auto) 0.6 0-1.3 10 ^3/uL Eosinophils # (Auto) 0 0-0.8 10 ^3/uL Basophils # (Auto) 0 0-0.2 10 ^3/uL Nucleated Red Blood Cells 0.2 % Sodium Level 138 136-145 mmol/L Potassium Level 4.0 3.5-5.1 mmol/L Chloride Level 101 98-107 mmol/L Carbon Dioxide Level 20 20-31 mmol/L Anion Gap 17 H 5-15 Blood Urea Nitrogen 54 H 9-23 mg/dL Creatinine 4.70 H 0.550-1.02 mg/dL Glomerular Filtration Rate Calc 9 >90 mL/min BUN/Creatinine Ratio 11.5 10.0-20.0 Serum Glucose 94 74-106 mg/dL Calcium Level 7.3 L 8.7-10.4 mg/dL Total Bilirubin 0.4 0.2-1.0 mg/dL Aspartate Amino Transferase (AST) 26 13-40 U/L Alanine Aminotransferase (ALT) 18 7-40 U/L Alkaline Phosphatase 84 46-116 U/L B-Type Natriuretic Peptide 438.40 0-100 pg/mL Total Protein 7.3 5.7-8.2 g/dL Albumin 3.7 3.2-4.8 g/dL SEPSIS Sepsis Screen Date sepsis recognized/suspect: Sep 04, 2025 Time Sepsis recognized/suspect: 2029 Recent Procedure: No On Antibiotic Therapy: No Respiratory Rate >20: Yes Heart Rate >90: Yes Temp<36 C (96.8 F) or >38.3 C: No SBP <90 or MAP <65 mmHG: No New Acute Mental Status Change: No Is the patient on CPAP, BIPAP,: Yes Physician Orders Levalbuterol Hcl (Xopenex Medneb) (09/05/25 00:00) BIPAP (09/04/25 18:46) Norepinephrine 8 Mg/250ml Kit (Levophed) (09/04/25 19:30) Ceftriaxone 1gm/50ml (Rocephin) (09/05/25 09:00) Azithromycin 500mg/ 250ml (Zithromax 50 (09/05/25 10:00) Calcium Acetate Capsule (Phoslo Capsule) (09/05/25 08:00) Sodium Bicarb Tab (09/04/25 22:00) Aspirin Tablet (09/05/25 10:00) Atorvastatin (Lipitor) (09/04/25 22:00) * Cardiology Consult (09/04/25 19:23) Basic Metabolic Panel (09/05/25 04:00) Glucose Blood (Accu-Chek Comfort Curve T (09/04/25 22:00) Insulin R (Human) (Insulin R) (09/04/25 22:00) Dextrose 50% Syringe (09/04/25 19:30) Admit (09/04/25 19:23) Renal Standard(2gna,3gk,Lopho) (09/05/25 Breakfast) Ondansetron Hcl (Zofran) (09/04/25 19:30) Complete Blood Count (09/05/25 04:00) Condition: Fair (09/04/25 19:23) Acetaminophen Tablet (Tylenol Tablet) (09/04/25 19:30) Bedrest With Bathroom Privileg (09/04/25 19:23) Midodrine Tablet (Proamatine Tablet) (09/05/25 08:00) Vital Signs Date Time Temp Pulse Resp B/P (MAP) Pulse Ox O2 Delivery O2 Flow Rate FiO2 09/04/25 21:53 102 122/72 99 Nasal BiPAP Mask 40 09/04/25 21:30 95 24 112/67 (82) 98 09/04/25 20:45 101 26 120/71 (87) 99 09/04/25 20:15 112 133/77 96 Nasal BiPAP Mask 50 09/04/25 19:58 100.8 111 34 125/65 (85) 99 100.8 09/04/25 19:53 112/60 09/04/25 19:07 121 18 99 09/04/25 19:07 116 18 93 09/04/25 19:07 93 Non-Rebreather 15.0 09/04/25 19:07 99.7 116 18 13/58 93 15.0 99.7 09/04/25 19:07 93 Non-Rebreather 15 N/A 09/04/25 16:00 99.7 116 34 103/58 (73) 100 99.7 09/04/25 16:00 107 Laboratory Tests Test 09/04/25 13:46 Lactic Acid Level 1.3 mmol/L (0.4-2.0) Medications Medications Dose Ordered Sig/Rosa Route Start Time Stop Time Status Last Admin Dose Admin Acetaminophen 650 mg ONCE ONCE PO 09/04/25 12:30 09/04/25 12:31 DC 09/04/25 12:30 650 MG Atorvastatin Calcium 40 mg HS PO 09/04/25 22:00 09/04/25 22:29 40 MG Azithromycin 250 ml @ 125 mls/hr ONCE ONCE IV 09/04/25 12:30 09/04/25 14:29 DC 09/04/25 12:30 125 MLS/HR Bumetanide 4 mg ONCE ONCE IV 09/04/25 19:30 09/04/25 19:35 DC 09/04/25 19:53 4 MG Diagnostic Test (Pha) 1 strip ACHS 09/04/25 22:00 09/04/25 22:23 1 STRIP Insulin Human Regular ACHS SC 09/04/25 22:00 09/04/25 22:28 3 UNITS Ipratropium [place] 0.5 mg ONCE ONCE NEB 09/04/25 19:00 09/04/25 19:03 DC 09/04/25 19:26 0.5 MG Midodrine 10 mg Q12HR@0600,1800 PO 09/04/25 19:45 09/04/25 20:02 DC 09/04/25 19:33 10 MG Piperacillin Sod/ Tazobactam Sod 100 ml @ 100 mls/hr ONCE ONCE IV 09/04/25 12:30 09/04/25 13:29 DC 09/04/25 12:30 100 MLS/HR Sodium Bicarbonate 650 mg BID PO 09/04/25 22:00 09/04/25 22:30 650 MG Assessment/Plan Assessment/Plan Assessment Questionable pneumonia Elevated troponin rule out NSTEMI Possible fluid overload End-stage renal disease, dialysis dependent Diabetes mellitus Legally blind Fever Hypotension Plan Admit the patient to telemetry to the hospitalist Nephrology consultation Cardiology consult Resume home medications Continue treatment per orders. Plan discussed with: Patient My Orders Orders - JEREMIAS SARAVIA Procedure Category Date Status Time Ceftriaxone 1gm/50ml PHA 09/05/25 In Process (Rocephin) 09:00 Azithromycin 500mg/ PHA 09/05/25 In Process 250ml (Zithromax 50 10:00 Calcium Acetate PHA 09/05/25 In Process Capsule (Phoslo 08:00 Sodium Bicarb Tab PHA 09/04/25 In Process 22:00 Aspirin Tablet PHA 09/05/25 In Process 10:00 Atorvastatin (Lipitor) PHA 09/04/25 In Process 22:00 * Cardiology Consult CONS 09/04/25 Transmitted 19:23 Basic Metabolic Panel LAB 09/05/25 Verified 04:00 Glucose Blood PHA 09/04/25 In Process (Accu-Chek Comfort 22:00 Insulin R (Human) PHA 09/04/25 In Process (Insulin R) 22:00 Dextrose 50% Syringe PHA 09/04/25 In Process 19:30 Admit ADMIT 09/04/25 Transmitted 19:23 Renal DIET 09/05/25 Transmitted Standard(2gna,3gk,Lopho) Breakfast Ondansetron Hcl PHA 09/04/25 In Process (Zofran) 19:30 Complete Blood Count LAB 09/05/25 Verified 04:00 Condition: Fair FRANK 09/04/25 In Process 19:23 Acetaminophen Tablet PHA 09/04/25 In Process (Tylenol Tablet) 19:30 Bedrest With Bathroom FRANK 09/04/25 In Process Privileg 19:23 Date of Service: Sep 04, 2025 Billing Provider: JEREMIAS SARAVIA Common Visit Codes: 15239-[id number] INP/OBS CARE (HIGH) JEREMIAS SARAVIA Sep 04, 2025 23:20
[2025-09-05] VITALS (13 sets, daily range): BP systolic 73–133; BP diastolic 33–80; PULSE 73–137; RESP 25; O2SAT 33–99
[2025-09-05] MEDS: LEVALBUTEROL HCL 1.25 MG/3 ML NEB NEB SCH (00:45)
[2025-09-05 01:18] LABS: Base Excess -5.5 mmol/L (-2.0-3.0)
[2025-09-05] MEDS: IOHEXOL 350 MG/ML 100ML IJ ONE (01:19)
--- NOTE | 2025-09-05 02:00 | DVH ---
CTA Chest with intravenous contrast INDICATION: r/o pe COMPARISON: None TECHNIQUE: Multidetector spiral CTA of the chest was performed of the chest with intravenous contrast . PULMONARY ANGIOGRAPHY PROTOCOL was utilized using a bolus-tracking technique centered on the main p ulmonary artery. Axial, coronal and sagittal multiplanar and MIP reformats were performed. Radiation Dose : 1. Chest: CTDI volume is mGy. Dose-length product is mGy*cm The dose indicators for CT are the volume Computed Tomography (CT) Dose Index (CTDIvol) and the Dose Length Product (DLP), and are measured in units of mGy and mGy-cm, respectively. These indicators are not patient dose, but values generated from the CT scanner acquisition factors. The report includes radiation exposure data for exposures received during this examination. Findings: Pulmonary artery: No pulmonary embolism. Lower neck: Normal thyroid. Lungs: Multifocal bilateral consolidative parenchymal airspace disease throughout all lung zones cons istent with multifocal pneumonia. No evidence of pleural effusion. No evidence of pneumothorax. Heart/Vascular Structures: Heart is enlarged. Atherosclerotic vascular calcifications. No pericardia l effusion. Lymph Nodes: No adenopathy Musculoskeletal: No acute osseous abnormality. Soft tissues: Normal. Upper abdomen: Limited portions of the upper abdomen are unremarkable. IMPRESSION: 1. No pulmonary embolism. 2. Multifocal bilateral consolidative parenchymal airspace disease throughout all lung zones consiste nt with multifocal pneumonia. 3. Cardiomegaly.
[2025-09-05] MEDS ORDERED: ENOXAPARIN SOD 100 MG/1 ML SYRINGE SC ONE (02:15)
[2025-09-05] MEDS: HYDROcodone-ACET 7.5/325MG TAB PO ONE (02:24)
[2025-09-05 02:38] LABS: Hematocrit 30.1 % (36.0-46.0); Hemoglobin 9.7 g/dL (12.2-16.2); Mean Corpuscular Hemoglobin 31.1 pg (28.0-32.0); Mean Corpuscular Volume 96.6 fL (80.0-100.0); Nucleated Red Blood Cells % 0.2 %
[2025-09-05 02:48] LABS: Chloride 101 mmol/L (98-107); Potassium 4.5 mmol/L (3.5-5.1)
[2025-09-05 02:49] LABS: Anion Gap 17 (5-15)
[2025-09-05 02:55] LABS: BUN/Creatinine Ratio 13.2 (10.0-20.0)
[2025-09-05 03:00] LABS: Blood Urea Nitrogen 68 mg/dL (9-23); Calcium 6.8 mg/dL (8.7-10.4); Carbon Dioxide 17 mmol/L (20-31); Glucose 124 mg/dL (74-106); Sodium 135 mmol/L (136-145)
[2025-09-05 03:11] LABS: INR 1.03 (0.9-1.15); Partial Thromboplastin Time 31.2 SEC (24.5-34.5); Prothrombin Time 10.9 sec (9.3-11.8)
[2025-09-05] MEDS ORDERED: VANCOMYCIN PER PHARMACY 0 MG IV SCH (03:45)
[2025-09-05] MEDS: SODIUM BICARB 8.4% 50Meq/50ml SYR Vial IV ONE (04:04)
[2025-09-05] MEDS: CALCIUM GLUC 1,000mg/50ml-NS 50 ML IV ONE (04:04)
[2025-09-05] MEDS: HEPARIN SODIUM (PORCINE) 5000 UNITS/ML 1ML VIAL IV ONE (04:05)
[2025-09-05] MEDS: HEPARIN DRIP/D5W 100UNITS/ML 250 ML IV SCH ×2 (04:08→12:41)
[2025-09-05] MEDS: PHENYLEPHRINE IV 250 ML IV SCH (04:21)
[2025-09-05] MEDS: CALCIUM ACETATE 667 MG CAP PO SCH (08:27)
[2025-09-05] MEDS: MIDODRINE HCL 10 MG TAB PO SCH (08:31)
[2025-09-05] MEDS ORDERED: AZITHROMYCIN 500MG/ 250ML 250 ML IV SCH (10:00)
[2025-09-05 11:28] LABS: INR 1.11 (0.9-1.15); Prothrombin Time 11.6 sec (9.3-11.8)
[2025-09-05 11:33] LABS: Partial Thromboplastin Time 84.3 SEC (24.5-34.5)
--- NOTE | 2025-09-05 11:43 | DVHINCON2 ---
Date Seen: Sep 05, 2025 Referring Physician VINNIE Altamirano Reason for Consultation NSTEMI History of Present Illness This is a [place]vian-speaking mostly female who presented to the emergency room via EMS with a chief complaint of shortness of breath for four days. Information obtained from records and daughter over the phone ([place]). It appears the patient developed progressive shortness of breath associated with a productive cough and an oxygen saturation level in the 70s% on room air prompting her daughter to call 911. She also reports a recent mechanical fall injury and developing chest wall pain since then. Denies active chest pain, palpitations, diaphoresis, or syncopal events. Upon EMS arrival she was placed on supplemental oxygenation and is currently on O2 support via BiPAP with 90% FiO2. She underwent a 12 lead electrocardiogram revealing a sinus tachycardia rhythm at 127 bpm. playground monitor at bedside has a sinus tachycardia rhythm with associated T-wave inversion to lead II. Currently on low-dose Gerald-synephrine and heparin drips. 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 Past Medical History Past medical history reviewed. No other significant than mentioned above. Past Surgical History Multiple PTCAs with stent placement Hemodialysis access Family History: FH: congestive heart failure G8 MOTHER Family History Family history reviewed. Social History Denies the use of illicit drugs, alcohol, or tobacco use. Allergies: Coded Allergies: NO KNOWN ALLERGIES (Unverified , 08/26/19) Home Meds Active Scripts Cefdinir (Cefdinir) 300 Mg Cap, 1 CAP PO BID for 5 Days, #10 CAP Prov:JEREMIAS JORDAN MD 03/28/25 Reported Medications Multiple Vitamins W/ Minerals (Multivitamin) 1 Tab Tab, 1 TAB PO DAILY, TAB 03/27/25 Aspirin (Aspirin) 81 Mg Chw, 81 MG PO DAILY, TAB.CHEW 03/27/25 Famotidine (Acid Mantel Craftsman) 10 Mg Tab, 10 MG PO DAILY 03/27/25 Furosemide (Furosemide) 20 Mg Tab, 1 TAB PO BID 03/27/25 Hydralazine HCl (Hydralazine HCl) 25 Mg Tab, 1 TAB PO TID 03/27/25 1, 25 Dihydroxycholecalciferol (ROCALTROL CAPSULE) 0.25 Mcg Cp, 1 CAP PO DAILY 03/27/25 Hydrocodone-Acetaminophen (Hydrocodone/Acetaminophen 5-325 mg) 1 Tab Tab, 1 TAB PO BIDPRN PRN 03/27/25 Mirtazapine (Mirtazapine Oral Disintegrating Tablet) 15 Mg Tab, 1 TAB PO DAILY 03/27/25 Carvedilol (Carvedilol) 12.5 Mg Tab, 1 TAB PO BID 03/27/25 Sitagliptin (Sitagliptin) 25 Mg Tab, 1 TAB PO DAILY 03/27/25 Amlodipine Besylate (Amlodipine Besylate) 5 Mg Tab, 1 TAB PO DAILY 03/27/25 Sodium Bicarbonate (Sodium Bicarbonate) 650 Mg Tab, 3 TAB PO TID 03/27/25 Glipizide (Glipizide) 5 Mg Tab, 5 MG PO BID for 30 Days, MG 08/26/19 Atorvastatin Calcium (ATORVASTATIN CALCIUM) 40 Mg Tab, 40 MG PO DAILY, TAB 08/26/19 Cilostazol (Cilostazol) 100 Mg Tab, 100 MG PO BID for 30 Days, MG 08/26/19 Home Meds Home medications reviewed. Current Medications Current Medications Medications (Trade) Dose Ordered Sig/Rosa Route PRN Reason Start Time Stop Time Status Last Admin Levalbuterol HCl (Xopenex Medneb) 0.625 mg Q6HR NEB 09/05/25 00:00 09/05/25 05:52 Midodrine (Proamatine Tablet) 10 mg Q12HR@0600,1800 PO 09/04/25 19:45 09/04/25 20:02 DC 09/04/25 19:33 Norepinephrine Bitartrate 250 ml @ 3.75 mls/hr Q24H IV 09/04/25 19:30 Ceftriaxone Sodium 50 ml @ 100 mls/hr DAILY@09 IV 09/05/25 09:00 09/05/25 03:49 DC Azithromycin 250 ml @ 125 mls/hr DAILY IV 09/05/25 10:00 09/05/25 03:49 DC Calcium Acetate (Phoslo Capsule) 667 mg TIDWMEALS PO 09/05/25 08:00 09/05/25 08:27 Sodium Bicarbonate 650 mg BID PO 09/04/25 22:00 09/04/25 22:30 Aspirin 162 mg DAILY PO 09/05/25 10:00 Atorvastatin Calcium (Lipitor) 40 mg HS PO 09/04/25 22:00 09/04/25 22:29 Diagnostic Test (Pha) (Accu-Chek Comfort Curve T) 1 strip ACHS 09/04/25 22:00 09/05/25 06:40 Insulin Human Regular (InsuLIN R) ACHS SC 09/04/25 22:00 09/04/25 22:28 Dextrose 50 ml UD PRN IV Blood Sugar LESS THAN 60 09/04/25 19:30 Ondansetron HCl (Zofran) 4 mg Q4HP PRN IV NAUSEA / VOMITING 09/04/25 19:30 Acetaminophen (Tylenol Tablet) 650 mg Q6HP PRN PO PAIN SCALE 1-3 OR TEMP>100.4 09/04/25 19:30 Midodrine (Proamatine Tablet) 5 mg TIDWM PO 09/05/25 08:00 09/05/25 08:31 Heparin Sodium/ Dextrose 250 ml @ 8 mls/hr Q24H IV 09/05/25 02:15 09/05/25 04:08 Cefepime HCl 50 ml @ 12.5 mls/hr DAILY IV 09/05/25 10:00 Vancomycin HCl 0 ml @ 0 mls/hr PER PHARMACY IV 09/05/25 03:45 Phenylephrine HCl 250 ml @ 30 mls/hr Q8H20M IV 09/05/25 03:45 09/05/25 04:21 Review of Systems Constitutional: No symptom reported Ears, Nose, & Throat: No symptom reported Eyes: No symptom reported Neurological: No symptoms reported Pulmonary/Respiratory: SOB Cardiovascular: No symptom reported Gastrointestinal: No symptom reported Genitourinary: No symptom reported Musculoskeletal: Chest wall pain Skin: No symptom reported Psychiatric: No symptom reported Endocrine: No symptom reported Hemotologic/Lymphatic: No symptom reported Vital Signs Vital Signs Date Time Temp Pulse Resp B/P (MAP) Pulse Ox O2 Delivery O2 Flow Rate FiO2 09/05/25 10:33 104 133/80 98 Nasal BiPAP Mask 90 09/05/25 09:45 22 09/04/25 20:00 15 09/04/25 19:58 100.8 100.8 Physical Exam General Appearance: Cooperative. Chronically ill. O2 via BiPAP with 90% FiO2. On single-vasopressor. On heparin drip Head Exam: Normal inspection Neck Exam: Normal inspection. Non-tender. Normal alignment Pulmonary/Respiratory: Tender to touch. Coarse bilateral breath sounds Cardiovascular/Chest: Regular rate and rhythm. S1, S2. Sinus tachycardia. Systolic murmur. + JVD. Peripheral Pulses: 2+ Radial (R). 2+ Radial (L). 2+ Pedal (R). 2+ Pedal (L) Abdominal Exam: Normal bowel sounds. Soft. Ankle Exam: Negative ankle edema Lower extremities: Negative lower extremity edema Neuro/Mental Status: A&O x3. Coherent but poor historian Thoughts/Psych: Normal thought pattern. Anxious Appearance: Moderate to severe acute respiratory distress Skin Exam: Normal inspection. Pale color. Warm. Dry Labs/Diagnostic Data Labs Test 09/05/25 10:15 09/05/25 02:26 09/05/25 01:21 09/05/25 00:58 Range/Units White Blood Count 11.6 H 4.4-10.8 10^3/uL Red Blood Count 3.12 L 4.0-5.20 10^6/uL Hemoglobin 9.7 L 12.2-16.2 g/dL Hematocrit 30.1 #L 36.0-46.0 % Mean Corpuscular Volume 96.6 80.0-100.0 fL Mean Corpuscular Hemoglobin 31.1 28.0-32.0 pg Mean Corpuscular Hemoglobin Concent 32.2 32.0-36.0 g/dL Red Cell Distribution Width 20.1 H 11.8-14.3 % Platelet Count 238 140-450 10^3/uL Mean Platelet Volume 8.4 6.9-10.8 fL Neutrophils (%) (Auto) 76.7 37.0-80.0 % Lymphocytes (%) (Auto) 16.3 10.0-50.0 % Monocytes (%) (Auto) 6.2 0.0-12.0 % Eosinophils (%) (Auto) 0.0 0.0-7.0 % Basophils (%) (Auto) 0.8 0.0-2.0 % Neutrophils # (Auto) 8.9 H 1.6-8.6 10 ^3/uL Lymphocytes # (Auto) 1.9 0.4-5.4 10 ^3/uL Monocytes # (Auto) 0.7 0-1.3 10 ^3/uL Eosinophils # (Auto) 0 0-0.8 10 ^3/uL Basophils # (Auto) 0.1 0-0.2 10 ^3/uL Nucleated Red Blood Cells 0.2 % Sodium Level 135 L 136-145 mmol/L Potassium Level 4.5 3.5-5.1 mmol/L Chloride Level 101 98-107 mmol/L Carbon Dioxide Level 17 L 20-31 mmol/L Anion Gap 17 H 5-15 Blood Urea Nitrogen 68 #H 9-23 mg/dL Creatinine 5.15 H 0.550-1.02 mg/dL Glomerular Filtration Rate Calc 8 >90 mL/min BUN/Creatinine Ratio 13.2 10.0-20.0 Serum Glucose 124 H 74-106 mg/dL Calcium Level 6.8 L 8.7-10.4 mg/dL Troponin I High Sensitivity 966 *H </=34 ng/L Blood Gas Specimen Type Arterial Blood Gas Sample Site Left radial Blood Gas Patient Temperature 37.0 Arterial Blood Date Drawn [id number] Arterial Blood pH 7.422 7.350-7.450 Arterial Blood Partial Pressure CO2 28.4 L 32.0-45.0 mmHg Arterial Blood Partial Pressure O2 73.7 L 83.0-108.0 mmHg Arterial Blood HCO3 18.1 L 21.0-28.0 mmol/L Arterial Blood Oxygen Saturation 93.5 L 94.0-98.0 % Arterial Blood Base Excess -5.5 L -2.0-3.0 mmol/L Arterial Blood Oxyhemoglobin 92.0 L 94.0-98.0 % Arterial Blood Carboxyhemoglobin 0.9 0.5-1.5 % Arterial Blood Methemoglobin 0.7 0.0-1.5 % Dagoberto Test Modified Blood Gas Total Hemoglobin 8.90 L 12.0-16.0 g/dL Blood Gas Set Respiration Rate 12.0 Blood Gas Modality Mask - bipap FiO2 % 50.0 Blood Gas EPAP 5 Blood Gas IPAP 12 Test 09/04/25 23:35 09/04/25 13:46 09/04/25 11:00 Range/Units D-Dimer, Quantitative 6.35 H 0.0-0.49 mg/L FEU Lactic Acid Level 1.3 0.4-2.0 mmol/L Total Bilirubin 0.4 0.2-1.0 mg/dL Aspartate Amino Transferase (AST) 26 13-40 U/L Alanine Aminotransferase (ALT) 18 7-40 U/L Alkaline Phosphatase 84 46-116 U/L B-Type Natriuretic Peptide 438.40 0-100 pg/mL Total Protein 7.3 5.7-8.2 g/dL Albumin 3.7 3.2-4.8 g/dL Microbiology Date/Time Source Procedure Growth Status 09/04/25 11:00 Blood Blood Culture - Preliminary NO GROWTH AFTER 24 HOURS OF INCUBATION. Resulted Assessment Acute on chronic HFpEF, NYHA class IV Acute hypoxic respiratory failure with multifocal pneumonia Non ST-elevation myocardial infarction rule out progressive coronary artery disease Hx of cardiopulmonary arrest status post CPR with ROSC Recent hx of posterior mitral leaflet infective endocarditis s/p ABX therapy Coronary artery disease status post PTCA with multiple MORGAN Mitral valve insufficiency, severe degree Type 2 diabetes mellitus ESRD on HD Plan/Recommendation (Dr. Angeles) * Transthoracic echocardiogram (06/03/2025): LVEF at 50% with normal RV function. Left atrial enlargement. Hruwkidk-cw-agifms mitral insufficiency. Stenosis and thickening of the aortic valve leaflets as well as diminished excursion. * Transesophageal echocardiogram (06/04/2025): LVEF about 55% with normal RV function. There appears to be a 2-3 mm vegetation in the inferior medial aspect of the base of the posterior mitral leaflet. * Twelve lead electrocardiogram x1: Sinus tachycardia without evidence of ischemia. * Serial troponin levels trending up with latest 900s ng/L Plan: We will continue further cardiac evaluation with a repeat transthoracic echocardiogram. In the setting of suspected vegetation on TTE, we will consider a transesophageal echocardiogram to further defined possible infective endocarditis. Per daughter, since last admission at this facility the patient has not have any invasive cardiac workup at [facility]. We will consider a cardiac catheterization and coronary angiogram once hemodynamically stable. In the meantime, continue dual antiplatelet therapy, lipid lowering agent, vasopressor for hemodynamic stability, and heparin drip. Monitor ECG changes closely and notify accordingly. Continue Nephrology recommendations for HD. Further orders per clinical course. Thank you for allowing us to participate in this patient's care. Please call if you have any questions or concerns. Critical care time spent: 50 minutes. This medical document was created using an electronic medical record system with voice recognition software and computerized dictation system. Although this document has been carefully reviewed, there might still be some phonetic and typographical errors. Occasional wrong-word or ``sound-alike substitutions may have occurred due to the inherent limitations of voice recognition software. These areas are purely typographical due to imperfections of the software programs and do not reflect any compromise in the patient's medical care. Please read the chart carefully and recognize, using context, where these substitutions have occurred. Plan discussed with: Patient, Daughter, Other NYHA Physical activity limitations: Class4(Severe)discomfort (w any activit,symptoms at rest) Date of Service: Sep 05, 2025 Billing Provider: OLLIE SR Cardiology Common Codes: [id number] CARE 30-74 MIN OLLIE SR Sep 05, 2025 11:43
[2025-09-05] MEDS: CEFEPIME 1GM/50ML 50 ML IV SCH (12:12)
--- NOTE | 2025-09-05 12:49 | CONS ---
Pharmacy Clinical Information: HEPARIN RATE DECREASED TO 6ML/HR OR 600 UNITS/HR SINCE APTT = 84.3 @1015 ON 09/05 PER RX PROTOCOL. NEXT APTT KAYA @1730 ON 09/05 PER CHEL PÉREZ AWARE RATE DECREASED FROM 8ML/HR TO 6ML/HR AND REPEATED BACK ORDER. MAYRA ROSEN PHARMACIST Sep 05, 2025 12:49
[2025-09-05 13:04] LABS: COVID19 ANTIGEN SOFIA FIA POSITIVE (NEGATIVE)
[2025-09-05] MEDS: ALBUMIN 25% 100 ML IV ONE (13:12)
--- NOTE | 2025-09-05 13:40 | DVHPN2 ---
Progress Note Date Seen: Sep 05, 2025 Medical Necessity Reason Pt with a Central, PICC or Fol: No Subjective Patient reports: No new complaints Review of Systems: HEENT:Normal, CVS:Normal, RESPIRATORY:Normal, GI:Normal, :Normal, MSK:Normal, NEURO:Normal Objective vital signs Vital Sign Date Time Temp Pulse Resp B/P (MAP) Pulse Ox O2 Delivery O2 Flow Rate FiO2 09/05/25 12:30 137 30 98/50 (66) 98 09/05/25 12:00 Nasal BiPAP Mask 80 09/04/25 20:00 15 09/04/25 19:58 100.8 100.8 Total Intake and Output 09/04/25 09/04/25 09/05/25 15:00 23:00 07:00 Intake Total 316 ml Balance 316 ml medications Current Medications Medications Dose Ordered Sig/Rosa Route Start Time Stop Time Status Last Admin Dose Admin Levalbuterol HCl 0.625 mg Q6HR NEB 09/05/25 00:00 09/05/25 11:59 0.625 MG Norepinephrine Bitartrate 250 ml @ 3.75 mls/hr Q24H IV 09/04/25 19:30 Calcium Acetate 667 mg TIDWMEALS PO 09/05/25 08:00 09/05/25 08:27 667 MG Sodium Bicarbonate 650 mg BID PO 09/04/25 22:00 09/04/25 22:30 650 MG Aspirin 162 mg DAILY PO 09/05/25 10:00 Atorvastatin Calcium 40 mg HS PO 09/04/25 22:00 09/04/25 22:29 40 MG Diagnostic Test (Pha) 1 strip ACHS 09/04/25 22:00 09/05/25 06:40 1 STRIP Insulin Human Regular ACHS SC 09/04/25 22:00 09/04/25 22:28 3 UNITS Dextrose 50 ml UD PRN IV 09/04/25 19:30 Ondansetron HCl 4 mg Q4HP PRN IV 09/04/25 19:30 Acetaminophen 650 mg Q6HP PRN PO 09/04/25 19:30 Midodrine 5 mg TIDWM PO 09/05/25 08:00 09/05/25 08:31 5 MG Cefepime HCl 50 ml @ 12.5 mls/hr DAILY IV 09/05/25 10:00 09/05/25 12:12 12.5 MLS/HR Vancomycin HCl 0 ml @ 0 mls/hr PER PHARMACY IV 09/05/25 03:45 Phenylephrine HCl 250 ml @ 30 mls/hr Q8H20M IV 09/05/25 03:45 09/05/25 04:21 30 MLS/HR Heparin Sodium/ Dextrose 250 ml @ 6 mls/hr Q24H IV 09/05/25 11:45 Examination: GENERAL:Normal, HEENT:Normal, NECK:Normal, LUNGS:Normal, LUNGS:Abnormal (on bipap), CVS:Normal, ABDOMEN:Normal, MSK:Normal, SKIN:Normal, NEURO:Normal, :Normal laboratory and microbiology Laboratory Tests 09/05/25 02:26 Test 09/05/25 02:26 Range/Units Serum Glucose 124 H 74-106 mg/dL Microbiology Date/Time Source Procedure Growth Status 09/04/25 11:00 Blood Blood Culture - Preliminary NO GROWTH AFTER 24 HOURS OF INCUBATION. Resulted Problem List/Assessment/Plan Problem List/Assessment/Plan 1. Acute on chronic hypoxic respiratory failure likely from pulmonary edema: on dialysis, on bipap 2. Pulmonary edema likely due to mitral insufficiency/CKD: dialysis today 3. S/p cardiopulmonary arrest with ROSC 4. Bhrsktsz-wd-hnewve mitral regurgitation 5. Possible infective endocarditis 6. Moderate aortic stenosis 7. NSTEMI likely type 2 from demand ischemia/cardiac arrest 8. h/o CAD s/p PCI with MORGAN 9. s/p fall/rib pain 1 0.type 2 diabetes mellitus: ssi 11. blindness will clarify dni status Plan discussed with: Patient My Orders My Orders Orders - JEREMIAS JORDAN MD Procedure Category Date Status Time BIPAP RT 09/05/25 Logged 12:55 Critical Care Time (mins): 56 (critical care time excluding procedures is 56 mins) Date of Service: Sep 05, 2025 Billing Provider: JEREMISA JORDAN MD Common Visit Codes: [id number] CARE 30-74 MIN JEREMIAS JORDAN MD Sep 05, 2025 13:40
[2025-09-05] MEDS: HEPARIN 1,000 UNITS/ml 1ML VIAL IV ONE (14:27)
[2025-09-05] MEDS ORDERED: LORazepam 2MG/ML-1ML VIAL IV PRN (15:00)
[2025-09-05] MEDS: PANTOPRAZOLE 40 MG/10 ML VIAL INJ IV ONE ×2 (16:09→16:56)
--- NOTE | 2025-09-05 16:40 | DVHINCON2 ---
DATE OF CONSULTATION: 09/05/2025 CONSULTING PHYSICIAN: Dr. Mehta REASON FOR CONSULTATION: Management of dialysis. HISTORY OF PRESENT ILLNESS: The patient is a 75-year-old female who is one of her chronic dialysis patients who came to the hospital yesterday complaining of chest pain and shortness of breath. She has been admitted for further monitorization, management with intravenous antibiotics for suspected pneumonia and also a cardiology consultation. She missed her dialysis yesterday, so I am being consulted to handle her dialysis treatment. In addition to this, apparently, in the emergency room, she reported that she had a fall at home 3 days prior to the admission and she had hit her chest wall against the toilet and so she was also reporting bilateral rib pain. REVIEW OF SYSTEMS: Otherwise unremarkable. PAST MEDICAL HISTORY: As stated above, significant for longstanding hypertension, end-stage renal disease. She has a history of anemia of renal failure, congestive heart failure, diabetes, hyperparathyroidism, neuropathy. She is also legally blind. SOCIAL HISTORY: He denies smoking cigarettes or drinking alcohol. MEDICATIONS IN THE HOSPITAL: Include Epogen, albumin, azithromycin, ceftriaxone, midodrine, calcium acetate, albuterol, insulin, atorvastatin, sodium bicarbonate, acetaminophen, and sulfa. PHYSICAL EXAMINATION: VITAL SIGNS: Blood pressure is 98/41, heart rate 130, respirations 14, temperature 98.1. GENERAL: The patient is an elderly female who appears to be in no acute distress. Alert and oriented x 2. HEENT: She is legally blind. NECK: No jugular venous distention. No palpable thyroid or lymphadenopathy. LUNGS: Show bilateral crackles. CARDIOVASCULAR: Shows irregular rate, tachycardia, 1/6 systolic murmur. ABDOMEN: Soft, mildly distended. No organomegaly or ascites. EXTREMITIES: Show no clubbing or cyanosis. There is trace edema. NEUROLOGIC: Nonfocal. LABORATORY FINDINGS: Hemoglobin 11.6, white blood cell count is 9.6, platelet count 238,000. Sodium is 135, potassium 4.5, creatinine 5. IMAGING DATA: Chest x-ray showed cardiomegaly with pulmonary edema. ASSESSMENT AND PLAN: * End-stage renal disease. * Congestive heart failure. * Pulmonary edema. * Borderline hypotension, rule out sepsis. * Possible pneumonia. * Anemia of renal disease. * Diabetes mellitus. The patient has been scheduled to have dialysis today. We will try to remove 2 liters of fluid carefully. She will likely need intravenous albumin and pressor support during hemodialysis. I would recommend blood cultures, intravenous antibiotics, cardiology consultation, 2D echocardiogram, and daily basic metabolic panel and cell counts. We will follow up her closely. Thank you for the consultation. MD NICOLE Lainez/ISHA TID: [id number] RECEIPT: [id number]
[2025-09-05 16:42] LABS: Base Excess -8.0 mmol/L (-2.0-3.0)
[2025-09-05] MEDS: HEPARIN SODIUM (PORCINE) 5000 UNITS/ML 1ML VIAL ONE (16:53)
[2025-09-05] MEDS ORDERED: ATORVASTATIN 20 MG TAB PO SCH (22:00)
--- NOTE | 2025-09-05 22:34 | DVHSR ---
APPROVED REPORT EXAM: Two-dimensional and M-mode echocardiogram with Doppler and color Doppler. Blood Pressure: 211/168 mmHg INDICATION Heart Failure RISK FACTORS Height: 5'1", Weight: 147 DIMENSIONS LVDd4.0 (3.8-5.7cm)LA (2D)3.8 (1.9-4.0cm)Aortic Root (2.0-3.7cm) LVDs3.3 (2.5-4.0cm)LA (MM) (1.9-4.0cm)Aortic Cusp Exc (1.5-2.0cm) EF (%) 37.0 (55-70%)Rt. Atrium (1.9-4.0cm)Asc. Aorta cm IVSd1.4 (0.7-1.1cm)RV (D) (1.8-2.4cm) Mitral Valve MitralMitral Stenosis E wave1.08m/sMV Mean GR.4mmHg A wave1.67m/sMV Peak GR.13mmHg E/A ratio0.62D MVAcm2 DECEL [id number] 1/2 Timems Aortic Valve Aortic ValveAortic Stenosis V11.09m/Kenrick Mean GR.38mmHg V23.84m/Kenrick Peak GR.64mmHg LVOT Diameter1.9 (1.8-2.4cm)Doppler AVA0.80cm2 Other Information Quality : Technically LimitedRhythm : Technically limited study due to patient position and on Bipap Conclusion ENTIRE ANTERIOR ,APICAL AND DISTAL HALF OF IVS IS HYPOKINETIC STUDY REVEAL PREVIOUS EXTENSIVE ANTERIOR WALL MD LV EF IS 25% AND IS SIGNIFICANTLY REDUCED HEAVILY CALCIFIED MITRAL LEAFLETS HEAVILY CALCIFIED AORTIC LEAFLETS PEAK GRADIENT ACROSS AORTIC VALVE IS 71 MM OF HG AND MEAN GRADIENT IS 42 MM OF HG CRITICAL AORTIC STENOSIS AORTIC VALVE AREA IS ONLY 0.8 CM SQUARE NO EFFUSION
[2025-09-05] MEDS: methylPREDNISolone SOD SUCC 40 MG/ML VL IV ONE (22:59)
--- NOTE | 2025-09-05 23:35 | DVHINCON2 ---
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 Information obtained from rec ords and daughter over the phone (Yancy). It appears the patient developed progressive shortness of breath associated with a productive cough and an oxygen saturation level in the 70s% on room air prompting her daughter to call 911. She also reports a recent mechanical fall injury and developing chest wall pain since then. Denies active chest pain, palpitations, diaphoresis, or syncopal events. Upon EMS arrival she was placed on supplemental oxygenation and is currently on O2 support via BiPAP with 90% FiO2. She underwent a 12 lead electrocardiogram revealing a sinus tachycardia rhythm at 127 bpm. sustainability officer at bedside has a sinus tachycardia rhythm with associated T-wave inversion to lead II. Currently on low-dose Gerald-synephrine and heparin drips. WBC 11.6, HGB 9.7, HCT 30.1, BUN 68, COMPUTER PUBLISHER 5.15, CA 6.8. Chest x-ray shows cardiomegaly with pulmonary edema. Patient was admitted to the hospital. I am asked to consult on this patient. Past Medical History Past medical history reviewed. No other significant than mentioned above. Past Surgical History Multiple PTCAs with stent placement Hemodialysis access Family History: FH: congestive heart failure G8 MOTHER Allergies: Coded Allergies: NO KNOWN ALLERGIES (Unverified , 08/26/19) Home Meds Active Scripts Cefdinir (Cefdinir) 300 Mg Cap, 1 CAP PO BID for 5 Days, #10 CAP Prov:JEREMIAS JORDAN MD 03/28/25 Reported Medications Multiple Vitamins W/ Minerals (Multivitamin) 1 Tab Tab, 1 TAB PO DAILY, TAB 03/27/25 Aspirin (Aspirin) 81 Mg Chw, 81 MG PO DAILY, TAB.CHEW 5/19/25 Famotidine (Acid Medical Customer Service Representative) 10 Mg Tab, 10 MG PO DAILY 03/27/25 Furosemide (Furosemide) 20 Mg Tab, 1 TAB PO BID 03/27/25 Hydralazine HCl (Hydralazine HCl) 25 Mg Tab, 1 TAB PO TID 03/27/25 1, 25 Dihydroxycholecalciferol (ROCALTROL CAPSULE) 0.25 Mcg Cp, 1 CAP PO DAILY 03/27/25 Hydrocodone-Acetaminophen (Hydrocodone/Acetaminophen 5-325 mg) 1 Tab Tab, 1 TAB PO BIDPRN PRN 03/27/25 Mirtazapine (Mirtazapine Oral Disintegrating Tablet) 15 Mg Tab, 1 TAB PO DAILY 03/27/25 Carvedilol (Carvedilol) 12.5 Mg Tab, 1 TAB PO BID 03/27/25 Sitagliptin (Sitagliptin) 25 Mg Tab, 1 TAB PO DAILY 03/27/25 Amlodipine Besylate (Amlodipine Besylate) 5 Mg Tab, 1 TAB PO DAILY 03/27/25 Sodium Bicarbonate (Sodium Bicarbonate) 650 Mg Tab, 3 TAB PO TID 03/27/25 Glipizide (Glipizide) 5 Mg Tab, 5 MG PO BID for 30 Days, MG 08/26/19 Atorvastatin Calcium (ATORVASTATIN CALCIUM) 40 Mg Tab, 40 MG PO DAILY, TAB 08/26/19 Cilostazol (Cilostazol) 100 Mg Tab, 100 MG PO BID for 30 Days, MG 08/26/19 Current Medications Current Medications Medications (Trade) Dose Ordered Sig/Rosa Route PRN Reason Start Time Stop Time Status Last Admin Levalbuterol HCl (Xopenex Medneb) 0.625 mg Q6HR NEB 09/05/25 00:00 09/05/25 11:59 Midodrine (Proamatine Tablet) 10 mg Q12HR@0600,1800 PO 09/04/25 19:45 09/04/25 20:02 DC 09/04/25 19:33 Norepinephrine Bitartrate 250 ml @ 3.75 mls/hr Q24H IV 09/04/25 19:30 Ceftriaxone Sodium 50 ml @ 100 mls/hr DAILY@09 IV 09/05/25 09:00 09/05/25 03:49 DC Azithromycin 250 ml @ 125 mls/hr DAILY IV 09/05/25 10:00 09/05/25 03:49 DC Calcium Acetate (Phoslo Capsule) 667 mg TIDWMEALS PO 09/05/25 08:00 09/05/25 08:27 Sodium Bicarbonate 650 mg BID PO 09/04/25 22:00 09/04/25 22:30 Aspirin 162 mg DAILY PO 09/05/25 10:00 Atorvastatin Calcium (Lipitor) 40 mg HS PO 09/04/25 22:00 09/04/25 22:29 Diagnostic Test (Pha) (Accu-Chek Comfort Curve T) 1 strip ACHS 09/04/25 22:00 09/05/25 06:40 Insulin Human Regular (InsuLIN R) ACHS SC 09/04/25 22:00 09/04/25 22:28 Dextrose 50 ml UD PRN IV Blood Sugar LESS THAN 60 09/04/25 19:30 Ondansetron HCl (Zofran) 4 mg Q4HP PRN IV NAUSEA / VOMITING 09/04/25 19:30 Acetaminophen (Tylenol Tablet) 650 mg Q6HP PRN PO PAIN SCALE 1-3 OR TEMP>100.4 09/04/25 19:30 Midodrine (Proamatine Tablet) 5 mg TIDWM PO 09/05/25 08:00 09/05/25 08:31 Heparin Sodium/ Dextrose 250 ml @ 8 mls/hr Q24H IV 09/05/25 02:15 09/05/25 11:40 DC 09/05/25 04:08 Cefepime HCl 50 ml @ 12.5 mls/hr DAILY IV 09/05/25 10:00 09/05/25 12:12 Vancomycin HCl 0 ml @ 0 mls/hr PER PHARMACY IV 09/05/25 03:45 Phenylephrine HCl 250 ml @ 30 mls/hr Q8H20M IV 09/05/25 03:45 09/05/25 04:21 Heparin Sodium/ Dextrose 250 ml @ 6 mls/hr Q24H IV 09/05/25 11:45 Clopidogrel Bisulfate (Plavix) 75 mg DAILY PO 09/06/25 10:00 UNV Atorvastatin Calcium (Lipitor) 40 mg HS PO 09/05/25 22:00 UNV Review of Systems Constitutional: No symptom reported Ears, Nose, & Throat: No symptom reported Eyes: No symptom reported Neurological: No symptoms reported Pulmonary/Respiratory: SOB Cardiovascular: No symptom reported Gastrointestinal: No symptom reported Genitourinary: No symptom reported Musculoskeletal: Chest wall pain Skin: No symptom reported Psychiatric: No symptom reported Endocrine: No symptom reported Hemotologic/Lymphatic: No symptom reported Vital Signs Vital Signs Date Time Temp Pulse Resp B/P (MAP) Pulse Ox O2 Delivery O2 Flow Rate FiO2 09/05/25 13:45 140 38 211/168 (182) 92 09/05/25 12:00 Nasal BiPAP Mask 80 09/04/25 20:00 15 09/04/25 19:58 100.8 100.8 Physical Exam GENERAL: Alert and oriented x 3. Ill appearing. EYES: PERRL, EOMI. Anicteric. HENT: Moist mucous membranes. LUNGS: Decreased breath sounds. CARDIOVASCULAR: Regular rate and rhythm. ABDOMEN: Soft, nontender and nondistended. EXTREMITIES: No edema. NEUROLOGIC: No focal neurological deficits. SKIN: Warm, dry. Pale. Labs/Diagnostic Data Labs Test 09/05/25 10:15 09/05/25 10:12 09/05/25 02:26 09/05/25 01:21 Range/Units Prothrombin Time 11.6 9.3-11.8 sec Prothrombin Time INR 1.11 0.9-1.15 Activated Partial Thromboplast Time 84.3 *H 24.5-34.5 SEC Phosphorus Level 6.7 H 2.4-5.1 mg/dL Vitamin D 25-Hydroxy 37.3 30.0-100 ng/mL Parathyroid Hormone (Intact) 351.3 H 18.4-80.1 pg/mL Influenza Type A Antigen Negative Negative Influenza Type B Antigen Negative Negative SARS-CoV-2 Antigen (Rapid) Positive NEGATIVE White Blood Count 11.6 H 4.4-10.8 10^3/uL Red Blood Count 3.12 L 4.0-5.20 10^6/uL Hemoglobin 9.7 L 12.2-16.2 g/dL Hematocrit 30.1 #L 36.0-46.0 % Mean Corpuscular Volume 96.6 80.0-100.0 fL Mean Corpuscular Hemoglobin 31.1 28.0-32.0 pg Mean Corpuscular Hemoglobin Concent 32.2 32.0-36.0 g/dL Red Cell Distribution Width 20.1 H 11.8-14.3 % Platelet Count 238 140-450 10^3/uL Mean Platelet Volume 8.4 6.9-10.8 fL Neutrophils (%) (Auto) 76.7 37.0-80.0 % Lymphocytes (%) (Auto) 16.3 10.0-50.0 % Monocytes (%) (Auto) 6.2 0.0-12.0 % Eosinophils (%) (Auto) 0.0 0.0-7.0 % Basophils (%) (Auto) 0.8 0.0-2.0 % Neutrophils # (Auto) 8.9 H 1.6-8.6 10 ^3/uL Lymphocytes # (Auto) 1.9 0.4-5.4 10 ^3/uL Monocytes # (Auto) 0.7 0-1.3 10 ^3/uL Eosinophils # (Auto) 0 0-0.8 10 ^3/uL Basophils # (Auto) 0.1 0-0.2 10 ^3/uL Nucleated Red Blood Cells 0.2 % Sodium Level 135 L 136-145 mmol/L Potassium Level 4.5 3.5-5.1 mmol/L Chloride Level 101 98-107 mmol/L Carbon Dioxide Level 17 L 20-31 mmol/L Anion Gap 17 H 5-15 Blood Urea Nitrogen 68 #H 9-23 mg/dL Creatinine 5.15 H 0.550-1.02 mg/dL Glomerular Filtration Rate Calc 8 >90 mL/min BUN/Creatinine Ratio 13.2 10.0-20.0 Serum Glucose 124 H 74-106 mg/dL Calcium Level 6.8 L 8.7-10.4 mg/dL Troponin I High Sensitivity 966 *H </=34 ng/L Test 09/05/25 00:58 09/04/25 23:35 09/04/25 13:46 09/04/25 11:00 Range/Units Blood Gas Specimen Type Arterial Blood Gas Sample Site Left radial Blood Gas Patient Temperature 37.0 Arterial Blood Date Drawn [id number] Arterial Blood pH 7.422 7.350-7.450 Arterial Blood Partial Pressure CO2 28.4 L 32.0-45.0 mmHg Arterial Blood Partial Pressure O2 73.7 L 83.0-108.0 mmHg Arterial Blood HCO3 18.1 L 21.0-28.0 mmol/L Arterial Blood Oxygen Saturation 93.5 L 94.0-98.0 % Arterial Blood Base Excess -5.5 L -2.0-3.0 mmol/L Arterial Blood Oxyhemoglobin 92.0 L 94.0-98.0 % Arterial Blood Carboxyhemoglobin 0.9 0.5-1.5 % Arterial Blood Methemoglobin 0.7 0.0-1.5 % Dagoberto Test Modified Blood Gas Total Hemoglobin 8.90 L 12.0-16.0 g/dL Blood Gas Set Respiration Rate 12.0 Blood Gas Modality Mask - bipap FiO2 % 50.0 Blood Gas EPAP 5 Blood Gas IPAP 12 D-Dimer, Quantitative 6.35 H 0.0-0.49 mg/L FEU Lactic Acid Level 1.3 0.4-2.0 mmol/L Total Bilirubin 0.4 0.2-1.0 mg/dL Aspartate Amino Transferase (AST) 26 13-40 U/L Alanine Aminotransferase (ALT) 18 7-40 U/L Alkaline Phosphatase 84 46-116 U/L B-Type Natriuretic Peptide 438.40 0-100 pg/mL Total Protein 7.3 5.7-8.2 g/dL Albumin 3.7 3.2-4.8 g/dL Microbiology Date/Time Source Procedure Growth Status 09/04/25 11:00 Blood Blood Culture - Preliminary NO GROWTH AFTER 24 HOURS OF INCUBATION. Resulted Assessment Acute on chronic HFpEF, NYHA class IV. Acute hypoxic respiratory failure with multifocal pneumonia. Non ST-elevation myocardial infarction rule out progressive coronary artery disease. Hx of cardiopulmonary arrest status post CPR with ROSC. Recent hx of posterior mitral leaflet infective endocarditis s/p ABX therapy. Coronary artery disease status post PTCA with multiple MORGAN. Mitral valve insufficiency, severe degree. Type 2 diabetes mellitus. ESRD on HD. Plan/Recommendation I agree with your ongoing assessment and care of plan. Patient has been seen by Patricia Alaniz NP on my behalf, her and I discussed the plan with the patient. Transthoracic echocardiogram (06/03/2025): LVEF at 50% with normal RV function. Left atrial enlargement. Cmqfygsn-nx-bfgkci mitral insufficiency. Stenosis and thickening of the aortic valve leaflets as well as diminished excursion. Transesophageal echocardiogram (06/04/2025): LVEF about 55% with normal RV function. There appears to be a 2-3 mm vegetation in the inferior medial aspect of the base of the posterior mitral leaflet. Twelve lead electrocardiogram x1: Sinus tachycardia without evidence of ischemia. Serial troponin levels trending up with latest 900s ng/L. We will continue further cardiac evaluation with a repeat transthoracic echocardiogram. In the setting of suspected vegetation on TTE, we will consider a transesophageal echocardiogram to further defined possible infective endocarditis. Per daughter, since last admission at this facility the patient has not have any invasive cardiac workup at [facility]. We will consider a cardiac catheterization and coronary angiogram once hemodynamically stable. In the meantime, continue dual antiplatelet therapy, lipid lowering agent, vasopressor for hemodynamic stability, and heparin drip. Monitor ECG changes closely and notify accordingly. Continue Nephrology recommendations for HD. Further orders per clinical course. Additional plan as per the hospital course. Plan discussed with: Patient NYHA Physical activity limitations: Class4(Severe)discomfort Date of Service: Sep 05, 2025 Billing Provider: ENID RODGERS MD Cardiology Common Codes: [id number] INP/OBS CARE (High), [id number] CARE 30-74 MIN ENID RODGERS MD Sep 05, 2025 14:25
[2025-09-06] VITALS (50 sets, daily range): BP systolic 94–125; BP diastolic 44–72; PULSE 84–112; RESP 16–32; TEMP 98.6; O2SAT 87–99
[2025-09-06 04:49] LABS: Hematocrit 25.9 % (36.0-46.0); Hemoglobin 8.4 g/dL (12.2-16.2); Mean Corpuscular Hemoglobin 31.3 pg (28.0-32.0); Mean Corpuscular Volume 95.9 fL (80.0-100.0); Nucleated Red Blood Cells % 0.1 %
[2025-09-06 05:12] LABS: Albumin 3.6 g/dL (3.2-4.8); Alkaline Phosphatase 54 U/L (46-116); Anion Gap 20 (5-15); BUN/Creatinine Ratio 9.5 (10.0-20.0); Chloride 105 mmol/L (98-107); Potassium 3.7 mmol/L (3.5-5.1); Sodium 143 mmol/L (136-145); Total Protein 6.7 g/dL (5.7-8.2)
[2025-09-06 05:13] LABS: Bilirubin, Total 0.4 mg/dL (0.2-1.0)
[2025-09-06 05:14] LABS: Alanine Aminotransferase 88 U/L (7-40); Blood Urea Nitrogen 38 mg/dL (9-23); Calcium 7.8 mg/dL (8.7-10.4); Carbon Dioxide 18 mmol/L (20-31); Glucose 282 mg/dL (74-106)
--- NOTE | 2025-09-06 05:23 | DVH ---
CHEST RADIOGRAPH Indication: CHF Technique: Single frontal view of the chest was obtained Comparison: XY CHEST PORTABLE on DOS: 09/04/25, XY CHEST PORTABLE on DOS: 06/15/25, XY CHEST XRAY 1 VIE W on DOS: 06/14/25 FINDINGS: Lines and Tubes: Right central venous catheter terminates in the superior vena cava. Lungs: Multifocal opacities are unchanged. Pleura: No effusion. No pneumothorax. Cardiomediastinal contours: Unremarkable Bones: No acute osseous abnormality. IMPRESSION: 1. Multifocal airspace opacities suggestive of pneumonia are similar to prior study.
[2025-09-06] MEDS: SODIUM CHL 0.9% 1000 ML BAG XX ONE (07:00)
[2025-09-06 07:05] LABS: Base Excess -8.7 mmol/L (-2.0-3.0)
[2025-09-06 08:48] LABS: INR 1.12 (0.9-1.15); Partial Thromboplastin Time 32.2 SEC (24.5-34.5); Prothrombin Time 11.7 sec (9.3-11.8)
[2025-09-06 08:55] LABS: Hemoglobin 8.0 g/dL (12.2-16.2)
[2025-09-06 08:59] LABS: Hematocrit 24.4 % (36.0-46.0); Mean Corpuscular Hemoglobin 31.3 pg (28.0-32.0); Mean Corpuscular Volume 95.0 fL (80.0-100.0); Nucleated Red Blood Cells % 0.1 %
--- NOTE | 2025-09-06 09:14 | CONS ---
Pharmacy Clinical Information: HEPARIN PER ACS PROTOCOL: Heparin discontinued yesterday, 09/05 @ 1446. Reordered today at APTT result of 30.8 APTT of 32.2 received from draw on 09/06 @0817. Bolus of 4000 units, then start rate @ 800 units per hour (8mL/hr). Orders read back and confirmed with ELISA Cox @8214. Next APTT scheduled for 1500. THIAGO JONES PHARMACIST Sep 06, 2025 09:14
[2025-09-06] MEDS: HEPARIN SODIUM (PORCINE) 5000 UNITS/ML 1ML VIAL IV ONE ×2 (09:38→12:15)
[2025-09-06] MEDS: PANTOPRAZOLE 40 MG/10 ML VIAL INJ IV SCH (09:38)
[2025-09-06] MEDS: HEPARIN DRIP/D5W 100UNITS/ML 250 ML IV SCH ×2 (09:45→17:35)
[2025-09-06] MEDS ORDERED: CLOPIDOGREL BISULFATE 75 MG TAB PO SCH (10:00)
--- NOTE | 2025-09-06 10:15 | DVHPN2 ---
Progress Note Date Seen: Sep 06, 2025 Medical Necessity Reason Pt with a Central, PICC or Fol: No Subjective Patient reports: No new complaints Review of Systems: HEENT:Normal, CVS:Normal, RESPIRATORY:Normal, GI:Normal, :Normal, MSK:Normal, NEURO:Normal Objective vital signs Vital Sign Date Time Temp Pulse Resp B/P (MAP) Pulse Ox O2 Delivery O2 Flow Rate FiO2 09/06/25 08:01 105/44 09/06/25 07:06 107 94 Facial BiPAP Mask 45 09/06/25 06:45 25 09/05/25 19:45 100.3 100.3 09/04/25 20:00 15 Total Intake and Output 09/05/25 09/05/25 09/06/25 15:00 23:00 07:00 Intake Total 24 ml 168.75 ml 375.00 ml Balance 24 ml 168.75 ml 375.00 ml medications Current Medications Medications Dose Ordered Sig/Rosa Route Start Time Stop Time Status Last Admin Dose Admin Levalbuterol HCl 0.625 mg Q6HR NEB 09/05/25 00:00 09/06/25 07:06 0.625 MG Norepinephrine Bitartrate 250 ml @ 3.75 mls/hr Q24H IV 09/04/25 19:30 Diagnostic Test (Pha) 1 strip ACHS 09/04/25 22:00 09/06/25 06:25 1 STRIP Insulin Human Regular ACHS SC 09/04/25 22:00 09/06/25 06:31 6 UNITS Dextrose 50 ml UD PRN IV 09/04/25 19:30 Ondansetron HCl 4 mg Q4HP PRN IV 09/04/25 19:30 Acetaminophen 650 mg Q6HP PRN PO 09/04/25 19:30 Cefepime HCl 50 ml @ 12.5 mls/hr DAILY IV 09/05/25 10:00 09/06/25 09:56 12.5 MLS/HR Vancomycin HCl 0 ml @ 0 mls/hr PER PHARMACY IV 09/05/25 03:45 Phenylephrine HCl 250 ml @ 30 mls/hr Q8H20M IV 09/05/25 03:45 09/06/25 08:01 86.25 MLS/HR Labetalol HCl 10 mg Q4HP PRN IV 09/05/25 15:00 Dexamethasone Sodium Phosphate 4 mg DAILY IV 09/06/25 10:00 09/06/25 09:39 4 MG Lorazepam 0.5 mg Q6HP PRN IV 09/05/25 15:00 Pantoprazole Sodium 40 mg DAILY IV 09/06/25 10:00 09/06/25 09:38 40 MG Heparin Sodium/ Dextrose 250 ml @ 8 mls/hr Q24H IV 09/06/25 07:30 09/06/25 09:45 8 MLS/HR Examination: GENERAL:Normal, HEENT:Normal, NECK:Normal, LUNGS:Normal, LUNGS:Abnormal (on bipap, rales), CVS:Normal, ABDOMEN:Normal, MSK:Normal, SKIN:Normal, NEURO:Normal, :Normal laboratory and microbiology Laboratory Tests 09/06/25 08:17 09/06/25 04:15 Test 09/06/25 04:15 Range/Units Serum Glucose 282 H 74-106 mg/dL Microbiology Date/Time Source Procedure Growth Status 09/04/25 11:00 Blood Blood Culture - Preliminary NO GROWTH AFTER 24 HOURS OF INCUBATION. Resulted Problem List/Assessment/Plan Problem List/Assessment/Plan 1. Acute on chronic hypoxic respiratory failure likely from pulmonary edema: on dialysis, on bipap 2. Pulmonary edema likely due to mitral insufficiency/CKD: dialysis today 3. S/p cardiopulmonary arrest with ROSC 4. Yjamjoxu-dv-vuxfqk mitral regurgitation 5. Possible infective endocarditis 6. severe aortic stenosis 7. NSTEMI ? type 1: on heparin 8. h/o CAD s/p PCI with MORGAN 9. s/p fall/rib pain 1 0.type 2 diabetes mellitus: ssi 11. blindness 12. acute on chronic systolic heart failure long dw daughter Love- wishes no cpr/dni/defibrillation Plan discussed with: Patient, Daughter My Orders My Orders Orders - JEREMIAS JORDAN MD Procedure Category Date Status Time BIPAP RT 09/05/25 Logged 12:55 Abg W/ Co-Ox RT 09/05/25 Logged 14:53 Labetalol Hcl PHA 09/05/25 In Process (Labetalol Hcl) 15:00 Dexamethasone PHA 09/06/25 In Process Injection (Decadron 10:00 Lorazepam 2mg/Ml Inj PHA 09/05/25 In Process (Ativan Inj) 15:00 Pantoprazole PHA 09/06/25 In Process (Protonix) 10:00 Npo (Nothing By DIET 09/05/25 Transmitted Mouth) Diet Dinner Chest Portable XY 09/06/25 Resulted 06:00 Abg W/ Co-Ox RT 09/06/25 Logged 06:00 BIPAP RT 09/05/25 Logged 15:15 Critical Care Time (mins): 41 (critical care time excluding procedures is 41 mins) Date of Service: Sep 06, 2025 Billing Provider: JEREMIAS JORDAN MD Common Visit Codes: [id number] CARE 30-74 MIN JEREMIAS JORDAN MD Sep 06, 2025 10:15
--- NOTE | 2025-09-06 11:04 | DVHPN2 ---
Consult Progress Note Date Seen: Sep 06, 2025 Subjective Review of Systems: CVS:Normal, RESPIRATORY:Abnormal, NEURO:Normal Objective vital signs Vital Sign Date Time Temp Pulse Resp B/P (MAP) Pulse Ox O2 Delivery O2 Flow Rate FiO2 09/06/25 08:01 105/44 09/06/25 07:06 107 94 Facial BiPAP Mask 45 09/06/25 06:45 25 09/05/25 19:45 100.3 100.3 09/04/25 20:00 15 Total Intake and Output 09/05/25 09/05/25 09/06/25 15:00 23:00 07:00 Intake Total 24 ml 168.75 ml 375.00 ml Balance 24 ml 168.75 ml 375.00 ml medications Current Medications Medications Dose Ordered Sig/Rosa Route Start Time Stop Time Status Last Admin Dose Admin Levalbuterol HCl 0.625 mg Q6HR NEB 09/05/25 00:00 09/06/25 07:06 0.625 MG Norepinephrine Bitartrate 250 ml @ 3.75 mls/hr Q24H IV 09/04/25 19:30 Diagnostic Test (Pha) 1 strip ACHS 09/04/25 22:00 09/06/25 06:25 1 STRIP Insulin Human Regular ACHS SC 09/04/25 22:00 09/06/25 06:31 6 UNITS Dextrose 50 ml UD PRN IV 09/04/25 19:30 Ondansetron HCl 4 mg Q4HP PRN IV 09/04/25 19:30 Acetaminophen 650 mg Q6HP PRN PO 09/04/25 19:30 Cefepime HCl 50 ml @ 12.5 mls/hr DAILY IV 09/05/25 10:00 09/06/25 09:56 12.5 MLS/HR Vancomycin HCl 0 ml @ 0 mls/hr PER PHARMACY IV 09/05/25 03:45 Phenylephrine HCl 250 ml @ 30 mls/hr Q8H20M IV 09/05/25 03:45 09/06/25 08:01 86.25 MLS/HR Labetalol HCl 10 mg Q4HP PRN IV 09/05/25 15:00 Dexamethasone Sodium Phosphate 4 mg DAILY IV 09/06/25 10:00 09/06/25 09:39 4 MG Lorazepam 0.5 mg Q6HP PRN IV 09/05/25 15:00 Pantoprazole Sodium 40 mg DAILY IV 09/06/25 10:00 09/06/25 09:38 40 MG Heparin Sodium/ Dextrose 250 ml @ 8 mls/hr Q24H IV 09/06/25 07:30 09/06/25 09:45 8 MLS/HR Examination: GENERAL:Abnormal, LUNGS:Abnormal (Coarse. O2 via oxymizer at 15 LPM), CVS:Abnormal (NSR on single vasopressor), NEURO:Normal laboratory and microbiology Laboratory Tests 09/06/25 08:17 09/06/25 04:15 Test 09/06/25 04:15 Range/Units Serum Glucose 282 H 74-106 mg/dL Problem List/Assessment/Plan Problem List/Assessment/Plan Acute on chronic decompensated HFrEF, NYHA class IV Acute hypoxic respiratory failure with multifocal pneumonia/COVID-[address]-elevation myocardial infarction rule out progressive coronary artery disease Hx of cardiopulmonary arrest status post CPR with ROSC (06/2025) Recent hx of posterior mitral leaflet infective endocarditis s/p ABX therapy (06/2025) Coronary artery disease status post PTCA with multiple MORGAN Mitral valve insufficiency, severe degree Aortic valve stenosis, critical Type 2 diabetes mellitus ESRD on HD Plan/Recommendation (Dr. Angeles) * Transthoracic echocardiogram (09/05/2025): LVEF 25% with entire anterior, apical, and distal half of IVS hypokinetic. Heavily calcified mitral/aortic leaflets. Critical aortic valve stenosis with KATARZYNA at 0.8 cm2, peak gradient at 71 mmHg, and mean gradient at 42 mmHg. * Transthoracic echocardiogram (06/03/2025): LVEF at 50% with normal RV function. Left atrial enlargement. Hwcfjxdo-of-esrnfm mitral insufficiency. Stenosis and thickening of the aortic valve leaflets as well as diminished excursion. * Transesophageal echocardiogram (06/04/2025): LVEF about 55% with normal RV function. There appears to be a 2-3 mm vegetation in the inferior medial aspect of the base of the posterior mitral leaflet. * Twelve lead electrocardiogram x1: Sinus tachycardia without evidence of ischemia. * Serial troponin levels trending up with latest 1,500s ng/L Plan: Given significantly reduced EF from 50% to 25% with associated anteroapical hypokinesis and critical aortic valve stenosis recommendations are for a right and left cardiac catheterization with coronary angiogram with surgical backup preferably at [facility]. In the meantime, consider dual-antiplatelet therapy, lipid lowering agent with optimal LFTs (currently trending up), vasopressor for hemodynamic stability, and heparin drip per pharmacy protocol. Monitor ECG changes closely and notify accordingly. Obtain T&S and monitor H&H closely. Continue Nephrology recommendations for HD. Further orders per clinical course. Thank you for allowing us to participate in this patient's care. Please call if you have any questions or concerns. Critical care time spent: 40 minutes. This medical document was created using an electronic medical record system with voice recognition software and computerized dictation system. Although this document has been carefully reviewed, there might still be some phonetic and typographical errors. Occasional wrong-word or ``sound-alike substitutions may have occurred due to the inherent limitations of voice recognition software. These areas are purely typographical due to imperfections of the software programs and do not reflect any compromise in the patient's medical care. Please read the chart carefully and recognize, using context, where these substitutions have occurred. Plan discussed with: Patient, Daughter, Other Date of Service: Sep 06, 2025 Billing Provider: OLLIE SR Cardiology Common Codes: [id number] CARE 30-74 MIN OLLIE SR Sep 06, 2025 11:04
[2025-09-06] MEDS: VANCOMYCIN 500mg/100mL 100 ML IV ONE (14:16)
[2025-09-06 15:35] LABS: Hematocrit 23.9 % (36.0-46.0); Hemoglobin 7.9 g/dL (12.2-16.2)
[2025-09-06 16:23] LABS: INR 1.13 (0.9-1.15); Prothrombin Time 11.8 sec (9.3-11.8)
[2025-09-06 16:34] LABS: Partial Thromboplastin Time 118.9 SEC (24.5-34.5)
--- NOTE | 2025-09-06 16:51 | CONS ---
Pharmacy Clinical Information: HEPARIN PER [facility] PROTOCOL: APTT result of 118.9 received from draw on 09/06 @1503. Hold heparin for 1 hour + decrease rate 300 units per hour. New rate is 500 units per hour (5ml/hr). Orders read back and confirmed with ELISA [place] @9715; Heparin stopped at 1635 and will resume at 1735 with new rate. Next APTT scheduled for 2300. THIAGO JONES PHARMACIST Sep 06, 2025 16:51
--- NOTE | 2025-09-06 17:27 | DVHPN2 ---
Progress Note - Dictate Date Seen: Sep 06, 2025 Has the PT tested + for MRSA If YES, has PT been informed?: No Medical Necessity Reason Pt with a Central, PICC or Fol: No Subjective Lethargic vital signs Vital Sign Date Time Temp Pulse Resp B/P (MAP) Pulse Ox O2 Delivery O2 Flow Rate FiO2 09/06/25 17:00 105/52 09/06/25 16:45 99 21 91 09/06/25 12:00 Oxymizer 12 N/A 09/06/25 12:00 98.4 98.4 Total Intake and Output 09/05/25 09/05/25 09/06/25 15:00 23:00 07:00 Intake Total 24 ml 168.75 ml 461.25 ml Balance 24 ml 168.75 ml 461.25 ml medications Current Medications Medications Dose Ordered Sig/Rosa Route Start Time Stop Time Status Last Admin Dose Admin Levalbuterol HCl 0.625 mg Q6HR NEB 09/05/25 00:00 09/06/25 11:59 0.625 MG Norepinephrine Bitartrate 250 ml @ 3.75 mls/hr Q24H IV 09/04/25 19:30 Diagnostic Test (Pha) 1 strip ACHS 09/04/25 22:00 09/06/25 11:59 1 STRIP Insulin Human Regular ACHS SC 09/04/25 22:00 09/06/25 12:00 4 UNITS Dextrose 50 ml UD PRN IV 09/04/25 19:30 Ondansetron HCl 4 mg Q4HP PRN IV 09/04/25 19:30 Acetaminophen 650 mg Q6HP PRN PO 09/04/25 19:30 Cefepime HCl 50 ml @ 12.5 mls/hr DAILY IV 09/05/25 10:00 09/06/25 09:56 12.5 MLS/HR Vancomycin HCl 0 ml @ 0 mls/hr PER PHARMACY IV 09/05/25 03:45 Phenylephrine HCl 250 ml @ 30 mls/hr Q8H20M IV 09/05/25 03:45 09/06/25 15:04 67.5 MLS/HR Labetalol HCl 10 mg Q4HP PRN IV 09/05/25 15:00 Dexamethasone Sodium Phosphate 4 mg DAILY IV 09/06/25 10:00 09/06/25 09:39 4 MG Lorazepam 0.5 mg Q6HP PRN IV 09/05/25 15:00 Pantoprazole Sodium 40 mg DAILY IV 09/06/25 10:00 09/06/25 09:38 40 MG Heparin Sodium/ Dextrose 250 ml @ 5 mls/hr Q24H IV 09/06/25 17:35 objective Acutelly ill Resting Lungs: bilateral rales CV: irregular rhythm, II/ CLARISSA, no pericardial rub Abdomen: mildly distended, froilan ascites Trace leg edema Neuro: non focal laboratory and microbiology Laboratory Tests 09/06/25 15:03 09/06/25 08:17 09/06/25 04:15 Test 09/06/25 04:15 Range/Units Serum Glucose 282 H 74-106 mg/dL Problem List 1. ESRD, had HD yesterday, UF limited due to hypotension, received IV Albumin during HD 2. Pulmonary edema 3. S/p cardiopulmonary arrest 4. Wyumrzmn-mm-coaprw mitral regurgitation 6. Aortic stenosis 7. NSTEMI 9. s/p fall/rib pain 10. DM2 12. H/O CHF, exacerbated Plan: HD again tomorrow, UF goal 2 L Plan discussed with: Other GARRETT CODY MD Sep 06, 2025 17:27
[2025-09-06] MEDS: EPOETIN ALFA-EPBX 10,000 UNIT/1ML VIAL SC ONE (21:00)
[2025-09-06 23:21] LABS: INR 1.09 (0.9-1.15); Partial Thromboplastin Time 56.8 SEC (24.5-34.5); Prothrombin Time 11.5 sec (9.3-11.8)
--- NOTE | 2025-09-06 23:44 | DVHPN2 ---
Consult Progress Note Date Seen: Sep 06, 2025 Subjective Review of Systems: CVS:Normal, RESPIRATORY:Abnormal, NEURO:Normal Other Systems: Patient was seen and evaluated in follow up in the ICU. Patient is on BIPAP on 45% FiO2. WBC 13.1, HGB 8, HCT 24.4, CO2 18, BUN 38, LAPPING MACHINE TENDER 3.98, GLUC 245, CA 7.8, AST 148, ALT 88, TROP 1506. Chest x-ray shows multifocal airspace opacities suggestive of pneumonia are similar to prior study. Transthoracic echocardiogram (09/05/2025): LVEF 25% with entire anterior, apical, and distal half of IVS hypokinetic. Heavily calcified mitral/aortic leaflets. Critical aortic valve stenosis with KATARZYNA at 0.8 cm2, peak gradient at 71 mmHg, and mean gradient at 42 mmHg. Objective vital signs Vital Sign Date Time Temp Pulse Resp B/P (MAP) Pulse Ox O2 Delivery O2 Flow Rate FiO2 09/06/25 12:10 91 25 95 09/06/25 12:00 Oxymizer 12 N/A 09/06/25 12:00 98.4 109/51 (70) 98.4 Total Intake and Output 09/05/25 09/05/25 09/06/25 15:00 23:00 07:00 Intake Total 24 ml 168.75 ml 375.00 ml Balance 24 ml 168.75 ml 375.00 ml medications Current Medications Medications Dose Ordered Sig/Rosa Route Start Time Stop Time Status Last Admin Dose Admin Levalbuterol HCl 0.625 mg Q6HR NEB 09/05/25 00:00 09/06/25 11:59 0.625 MG Norepinephrine Bitartrate 250 ml @ 3.75 mls/hr Q24H IV 09/04/25 19:30 Diagnostic Test (Pha) 1 strip ACHS 09/04/25 22:00 09/06/25 11:59 1 STRIP Insulin Human Regular ACHS SC 09/04/25 22:00 09/06/25 12:00 4 UNITS Dextrose 50 ml UD PRN IV 09/04/25 19:30 Ondansetron HCl 4 mg Q4HP PRN IV 09/04/25 19:30 Acetaminophen 650 mg Q6HP PRN PO 09/04/25 19:30 Cefepime HCl 50 ml @ 12.5 mls/hr DAILY IV 09/05/25 10:00 09/06/25 09:56 12.5 MLS/HR Vancomycin HCl 0 ml @ 0 mls/hr PER PHARMACY IV 09/05/25 03:45 Phenylephrine HCl 250 ml @ 30 mls/hr Q8H20M IV 09/05/25 03:45 09/06/25 10:59 67.5 MLS/HR Labetalol HCl 10 mg Q4HP PRN IV 09/05/25 15:00 Dexamethasone Sodium Phosphate 4 mg DAILY IV 09/06/25 10:00 09/06/25 09:39 4 MG Lorazepam 0.5 mg Q6HP PRN IV 09/05/25 15:00 Pantoprazole Sodium 40 mg DAILY IV 09/06/25 10:00 09/06/25 09:38 40 MG Heparin Sodium/ Dextrose 250 ml @ 8 mls/hr Q24H IV 09/06/25 07:30 09/06/25 09:45 8 MLS/HR Examination: GENERAL:Abnormal, HEENT:Normal, NECK:Normal, LUNGS:Abnormal (Coarse breath sounds ), CVS:Abnormal ((NSR on single vasopressor), ABDOMEN:Normal, MSK:Normal, NEURO:Normal laboratory and microbiology Laboratory Tests 09/06/25 08:17 09/06/25 04:15 Test 09/06/25 04:15 Range/Units Serum Glucose 282 H 74-106 mg/dL Problem List/Assessment/Plan Problem List/Assessment/Plan Problem list Acute on chronic decompensated HFrEF, NYHA class IV. Acute hypoxic respiratory failure with multifocal pneumonia/COVID-19. Non ST-elevation myocardial infarction rule out progressive coronary artery disease. Hx of cardiopulmonary arrest status post CPR with ROSC (06/2025). 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 Coronary artery disease status post PTCA with multiple MORGAN. Mitral valve insufficiency, severe degree. Aortic valve stenosis, critical. Type 2 diabetes mellitus. ESRD on HD. Plan/Recommendation Continued all current supportive medical care. Patient has been seen by Patricia Alaniz NP on my behalf, her and I discussed the plan with the patient. Transthoracic echocardiogram (09/05/2025): LVEF 25% with entire anterior, apical, and distal half of IVS hypokinetic. Heavily calcified mitral/aortic leaflets. Critical aortic valve stenosis with KATARZYNA at 0.8 cm2, peak gradient at 71 mmHg, and mean gradient at 42 mmHg. Transthoracic echocardiogram (06/03/2025): LVEF at 50% with normal RV function. Left atrial enlargement. Ymkqesho-yb-ethnqa mitral insufficiency. Stenosis and thickening of the aortic valve leaflets as well as diminished excursion. Transesophageal echocardiogram (06/04/2025): LVEF about 55% with normal RV function. There appears to be a 2-3 mm vegetation in the inferior medial aspect of the base of the posterior mitral leaflet. Twelve lead electrocardiogram x1: Sinus tachycardia without evidence of ischemia. Serial troponin levels trending up with latest 1,500s ng/L. Given significantly reduced EF from 50% to 25% with associated anteroapical hypokinesis and critical aortic valve stenosis recommendations are for a right and left cardiac catheterization with coronary angiogram with surgical backup preferably at [facility]. In the meantime, consider dual-antiplatelet therapy, lipid lowering agent with optimal LFTs (currently trending up), vasopressor for hemodynamic stability, and heparin drip per pharmacy protocol. Monitor ECG changes closely and notify accordingly. Obtain T&S and monitor H&H closely. Continue Nephrology recommendations for HD. Additional plan as per the hospital course. Plan discussed with: Patient Date of Service: Sep 06, 2025 Billing Provider: ENID RODGERS MD Cardiology Common Codes: [id number] CARE 30-74 MIN ENID RODGERS MD Sep 06, 2025 13:06
[2025-09-07] VITALS (104 sets, daily range): BP systolic 81–151; BP diastolic 33–71; PULSE 84–129; RESP 12–37; TEMP 98–98.5; O2SAT 89–100
[2025-09-07] MEDS: ACETAMINOPHEN 325 MG TAB PO PRN (03:08)
[2025-09-07] MEDS: SODIUM CHL 0.9% 1000 ML BAG XX ONE (07:00)
[2025-09-07 10:18] LABS: Hemoglobin 8.0 g/dL (12.2-16.2); Mean Corpuscular Hemoglobin 30.6 pg (28.0-32.0)
[2025-09-07 10:21] LABS: Hematocrit 25.6 % (36.0-46.0); Mean Corpuscular Volume 97.8 fL (80.0-100.0); Nucleated Red Blood Cells % 0.2 %
[2025-09-07 10:33] LABS: INR 1.03 (0.9-1.15); Partial Thromboplastin Time 42.1 SEC (24.5-34.5); Prothrombin Time 10.9 sec (9.3-11.8)
[2025-09-07 10:38] LABS: Albumin 3.2 g/dL (3.2-4.8); Alkaline Phosphatase 61 U/L (46-116); Anion Gap 25 (5-15); BUN/Creatinine Ratio 11.6 (10.0-20.0); Chloride 105 mmol/L (98-107); Potassium 4.1 mmol/L (3.5-5.1); Sodium 141 mmol/L (136-145); Total Protein 6.0 g/dL (5.7-8.2)
[2025-09-07 10:39] LABS: Bilirubin, Total 0.4 mg/dL (0.2-1.0)
[2025-09-07 10:43] LABS: Alanine Aminotransferase 107 U/L (7-40); Blood Urea Nitrogen 65 mg/dL (9-23); Calcium 7.1 mg/dL (8.7-10.4); Carbon Dioxide 11 mmol/L (20-31); Glucose 242 mg/dL (74-106)
[2025-09-07] MEDS: HEPARIN DRIP/D5W 100UNITS/ML 250 ML IV SCH ×2 (11:15→18:16)
[2025-09-07] MEDS: HYDROcodone-ACET 5/325MG TAB PO PRN (11:26)
[2025-09-07] MEDS ORDERED: ALBUMIN 25% 100 ML IV SCH (12:30)
[2025-09-07] MEDS: PHENYLEPHRINE INJ 80 MG in SODIUM CHL 0.9% 242 ML IV SCH (13:00)
[2025-09-07 17:25] LABS: INR 1.04 (0.9-1.15); Prothrombin Time 11.0 sec (9.3-11.8)
[2025-09-07 17:29] LABS: Partial Thromboplastin Time 72.9 SEC (24.5-34.5)
[2025-09-07] MEDS ORDERED: HEPARIN DRIP/D5W 100UNITS/ML 250 ML IV SCH (18:00)
[2025-09-07] MEDS: EPOETIN ALFA-EPBX 10,000 UNIT/1ML VIAL SC ONE (20:19)
[2025-09-07] MEDS: VANCOMYCIN 1GM/250ML KIT 250 ML IV ONE (20:19)
[2025-09-08] VITALS (103 sets, daily range): BP systolic 97–159; BP diastolic 43–98; PULSE 88–119; RESP 12–32; TEMP 97.8–98.7; O2SAT 93–100
[2025-09-08 00:38] LABS: INR 1.14 (0.9-1.15); Prothrombin Time 11.9 sec (9.3-11.8)
[2025-09-08 00:40] LABS: Partial Thromboplastin Time 83.3 SEC (24.5-34.5)
[2025-09-08] MEDS: HEPARIN DRIP/D5W 100UNITS/ML 250 ML IV SCH ×3 (01:30→22:36)
[2025-09-08 03:35] LABS: Hemoglobin 7.9 g/dL (12.2-16.2); Nucleated Red Blood Cells % 0.7 %
[2025-09-08 03:37] LABS: Hematocrit 24.8 % (36.0-46.0); Mean Corpuscular Hemoglobin 31.1 pg (28.0-32.0); Mean Corpuscular Volume 97.5 fL (80.0-100.0)
--- NOTE | 2025-09-08 04:52 | DVH ---
CHEST RADIOGRAPH Indication: CHF Technique: Single frontal view of the chest was obtained COMPARISON: XY CHEST PORTABLE on DOS: 09/06/25, XY CHEST PORTABLE on DOS: 09/04/25, XY CHEST PORTABLE on DOS: 06/15/25, XY CHEST XRAY 1 VIEW on DOS: 06/14/25, XY CHEST PORTABLE on DOS: 06/13/25 FINDINGS: Lines and Tubes: Right permCath unchanged in position. Lungs: Stable small right pleural effusion and moderately consolidative appearing multifocal bilatera l pulmonary airspace disease. No pneumothorax. Cardiomediastinal contours: Unremarkable Bones: Unremarkable IMPRESSION: 1. Stable appearing moderately consolidative of multifocal bilateral pulmonary airspace disease and s mall right pleural effusion. 2. Right PermCath.
[2025-09-08 08:03] LABS: INR 1.16 (0.9-1.15); Partial Thromboplastin Time 53.4 SEC (24.5-34.5); Prothrombin Time 12.1 sec (9.3-11.8)
[2025-09-08 08:09] LABS: Albumin 3.7 g/dL (3.2-4.8); Alkaline Phosphatase 102 U/L (46-116); Anion Gap 21 (5-15); BUN/Creatinine Ratio 11.0 (10.0-20.0); Bilirubin, Total 0.8 mg/dL (0.2-1.0); Carbon Dioxide 19 mmol/L (20-31); Chloride 98 mmol/L (98-107); Potassium 4.1 mmol/L (3.5-5.1); Sodium 138 mmol/L (136-145); Total Protein 6.3 g/dL (5.7-8.2)
[2025-09-08 08:10] LABS: Blood Urea Nitrogen 41 mg/dL (9-23)
[2025-09-08 08:11] LABS: Alanine Aminotransferase 216 U/L (7-40); Calcium 7.7 mg/dL (8.7-10.4)
[2025-09-08 08:14] LABS: Glucose 436 mg/dL (74-106)
[2025-09-08] MEDS ORDERED: DEXTROSE (50%) 50ML SYRG IV PRN ×2 (09:00→17:15)
[2025-09-08] MEDS: INSULIN DRIP 100 UNIT/100ML 100 ML IV SCH (10:09)
[2025-09-08] MEDS: ACCU-CHEK COMFORT CURVE STRIP VI SCH ×2 (10:09→20:00)
--- NOTE | 2025-09-08 11:06 | DVHPN2 ---
Consult Progress Note Subjective Other Systems: The patient denies any cardiac symptoms at time of assessment. The patient is currently on 11L oxymizer Objective vital signs Vital Sign Date Time Temp Pulse Resp B/P (MAP) Pulse Ox O2 Delivery O2 Flow Rate FiO2 09/07/25 08:05 85/42 09/07/25 07:15 100 17 95 09/07/25 07:01 Oxymizer 13 N/A 09/07/25 04:00 98.3 98.3 Total Intake and Output 09/06/25 09/06/25 09/07/25 15:00 23:00 07:00 Intake Total 504.75 ml 435.0 ml 865.00 ml Output Total 900 ml 375 ml Balance 504.75 ml -465.0 ml 490.00 ml medications Current Medications Medications Dose Ordered Sig/Rosa Route Start Time Stop Time Status Last Admin Dose Admin Levalbuterol HCl 0.625 mg Q6HR NEB 09/05/25 00:00 09/07/25 07:00 0.625 MG Norepinephrine Bitartrate 250 ml @ 3.75 mls/hr Q24H IV 09/04/25 19:30 Diagnostic Test (Pha) 1 strip ACHS 09/04/25 22:00 09/07/25 06:23 1 STRIP Insulin Human Regular ACHS SC 09/04/25 22:00 09/07/25 06:28 4 UNITS Dextrose 50 ml UD PRN IV 09/04/25 19:30 Ondansetron HCl 4 mg Q4HP PRN IV 09/04/25 19:30 Acetaminophen 650 mg Q6HP PRN PO 09/04/25 19:30 09/07/25 03:08 650 MG Cefepime HCl 50 ml @ 12.5 mls/hr DAILY IV 09/05/25 10:00 09/07/25 09:36 12.5 MLS/HR Vancomycin HCl 0 ml @ 0 mls/hr PER PHARMACY IV 09/05/25 03:45 Phenylephrine HCl 250 ml @ 30 mls/hr Q8H20M IV 09/05/25 03:45 09/07/25 08:05 86.25 MLS/HR Labetalol HCl 10 mg Q4HP PRN IV 09/05/25 15:00 Dexamethasone Sodium Phosphate 4 mg DAILY IV 09/06/25 10:00 09/07/25 09:36 4 MG Lorazepam 0.5 mg Q6HP PRN IV 09/05/25 15:00 Pantoprazole Sodium 40 mg DAILY IV 09/06/25 10:00 09/07/25 09:36 40 MG Heparin Sodium/ Dextrose 250 ml @ 5 mls/hr Q24H IV 09/06/25 17:35 09/07/25 06:28 5 MLS/HR Examination: GENERAL:Abnormal (Generalized weakness), LUNGS:Abnormal (Diminished throughout, 11 L Oxymizer), CVS:Abnormal (Sinus tachycardia with T- wave inversion), NEURO:Normal laboratory and microbiology Laboratory Tests 09/06/25 15:03 09/06/25 08:17 09/06/25 04:15 Test 09/06/25 04:15 Range/Units Serum Glucose 282 H 74-106 mg/dL Problem List/Assessment/Plan Problem List/Assessment/Plan Acute on chronic decompensated HFrEF, NYHA class IV Acute hypoxic respiratory failure with multifocal pneumonia/COVID-[address]-elevation myocardial infarction, rule out progressive coronary artery disease Hx of cardiopulmonary arrest status post CPR with ROSC (06/2025) 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 Angeles): * Transthoracic echocardiogram (09/05/2025): LVEF 25% with entire anterior, apical, and distal half of IVS hypokinetic. Heavily calcified mitral/aortic leaflets. Critical aortic valve stenosis with KATARZYNA at 0.8 cm2, peak gradient at 71 mmHg, and mean gradient at 42 mmHg. * Transthoracic echocardiogram (06/03/2025): LVEF at 50% with normal RV function. Left atrial enlargement. Mgkvkvuj-en-wbnmvq mitral insufficiency. Stenosis and thickening of the aortic valve leaflets as well as diminished excursion. * Transesophageal echocardiogram (06/04/2025): LVEF about 55% with normal RV function. There appears to be a 2-3 mm vegetation in the inferior medial aspect of the base of the posterior mitral leaflet. Plan: Given significantly reduced EF from 50% to 25% with associated anteroapical hypokinesis and critical aortic valve stenosis recommendations are for a right and left cardiac catheterization with coronary angiogram with surgical backup preferably at [facility]. In the meantime, consider dual-antiplatelet therapy, lipid lowering agent with optimal LFTs (currently trending up), vasopressor for hemodynamic stability, and heparin drip per pharmacy protocol. Unable to initiate guideline directed medical therapy for CHF given current vasopressor support. Monitor ECG changes closely and notify accordingly. Monitor H&H closely. Transfuse with PRBC as needed. Continue Nephrology recommendations for HD. Further orders per clinical course. Thank you for allowing us to participate in this patient's care. Please call if you have any questions or concerns. Critical care time spent: 40 minutes. This medical document was created using an electronic medical record system with voice recognition software and computerized dictation system. Although this document has been carefully reviewed, there might still be some phonetic and typographical errors. Occasional wrong-word or ``sound-alike substitutions may have occurred due to the inherent limitations of voice recognition software. These areas are purely typographical due to imperfections of the software programs and do not reflect any compromise in the patient's medical care. Please read the chart carefully and recognize, using context, where these substitutions have occurred. Plan discussed with: Patient, Daughter Date of Service: Sep 07, 2025 Billing Provider: TIANA ANDRADE Common Visit Codes: [id number] CARE 30-74 MIN TIANA ANDRADE Sep 07, 2025 10:02
--- NOTE | 2025-09-08 11:08 | CONS ---
Pharmacy Clinical Information: INCREASE HEPARIN DRIP RATE TO 700 UNITS/HR PER APTT OF 42.1 NEXT APTT DRAW SCHEDULED [id number] PER RX PROTOCOL ELISA [place] CONFIRMED AND READ BACK Bozena Grady PHARMACIST Sep 07, 2025 10:57
--- NOTE | 2025-09-08 11:13 | DVHPN2 ---
Progress Note Date Seen: Sep 07, 2025 Has the PT tested + for MRSA If YES, has PT been informed?: No Medical Necessity Reason Pt with a Central, PICC or Fol: No Subjective Patient reports: No new complaints Review of Systems: HEENT:Normal, CVS:Normal, RESPIRATORY:Normal, GI:Normal, :Normal, MSK:Normal, NEURO:Normal Objective vital signs Vital Sign Date Time Temp Pulse Resp B/P (MAP) Pulse Ox O2 Delivery O2 Flow Rate FiO2 09/07/25 12:56 108 20 98 09/07/25 12:45 Oxymizer 8.0 09/07/25 12:45 N/A 09/07/25 12:00 98.0 100/46 (64) 98.0 Total Intake and Output 09/06/25 09/06/25 09/07/25 15:00 23:00 07:00 Intake Total 504.75 ml 435.0 ml 865.00 ml Output Total 900 ml 375 ml Balance 504.75 ml -465.0 ml 490.00 ml medications Current Medications Medications Dose Ordered Sig/Rosa Route Start Time Stop Time Status Last Admin Dose Admin Levalbuterol HCl 0.625 mg Q6HR NEB 09/05/25 00:00 09/07/25 12:45 0.625 MG Norepinephrine Bitartrate 250 ml @ 3.75 mls/hr Q24H IV 09/04/25 19:30 Diagnostic Test (Pha) 1 strip ACHS 09/04/25 22:00 09/07/25 11:16 1 STRIP Insulin Human Regular ACHS SC 09/04/25 22:00 09/07/25 11:23 4 UNITS Dextrose 50 ml UD PRN IV 09/04/25 19:30 Ondansetron HCl 4 mg Q4HP PRN IV 09/04/25 19:30 Acetaminophen 650 mg Q6HP PRN PO 09/04/25 19:30 09/07/25 03:08 650 MG Cefepime HCl 50 ml @ 12.5 mls/hr DAILY IV 09/05/25 10:00 09/07/25 09:36 12.5 MLS/HR Vancomycin HCl 0 ml @ 0 mls/hr PER PHARMACY IV 09/05/25 03:45 Phenylephrine HCl 250 ml @ 30 mls/hr Q8H20M IV 09/05/25 03:45 09/07/25 11:08 30 MLS/HR Labetalol HCl 10 mg Q4HP PRN IV 09/05/25 15:00 Dexamethasone Sodium Phosphate 4 mg DAILY IV 09/06/25 10:00 09/07/25 09:36 4 MG Lorazepam 0.5 mg Q6HP PRN IV 09/05/25 15:00 Pantoprazole Sodium 40 mg DAILY IV 09/06/25 10:00 09/07/25 09:36 40 MG Acetaminophen/ Hydrocodone Bitart 1 tab Q4HPRN PRN PO 09/07/25 10:30 09/07/25 11:26 1 TAB Heparin Sodium/ Dextrose 250 ml @ 7 mls/hr Q24H IV 09/07/25 11:00 09/07/25 11:15 7 MLS/HR Phenylephrine HCl 80 mg/Sodium Chloride 250 ml @ 7.5 mls/hr Q24H IV 09/07/25 13:00 Albumin Human 100 ml @ 100 mls/hr ARVIND IV 09/07/25 12:30 09/08/25 13:29 Examination: GENERAL:Normal, HEENT:Normal, NECK:Normal, LUNGS:Normal, LUNGS:Abnormal (on oxymizer), CVS:Normal, ABDOMEN:Normal, MSK:Normal, SKIN:Normal, NEURO:Normal, :Normal laboratory and microbiology Laboratory Tests 09/07/25 09:58 Test 09/07/25 09:58 Range/Units Serum Glucose 242 H 74-106 mg/dL Microbiology Date/Time Source Procedure Growth Status 09/06/25 22:01 Nose MRSA Screen - Final Complete 09/04/25 11:00 Blood Blood Culture - Preliminary NO GROWTH AFTER 72 HOURS OF INCUBATION. Resulted Problem List/Assessment/Plan Problem List/Assessment/Plan 1. Acute on chronic hypoxic respiratory failure likely from pulmonary edema: on dialysis, on bipap 2. Pulmonary edema likely due to mitral insufficiency/CKD: dialysis today 3. h/o cardiopulmonary arrest with ROSC 4. Lkoayeab-pr-metesm mitral regurgitation 5. h/o infective endocarditis 6. severe aortic stenosis 7. NSTEMI ? type 1: on heparin 8. h/o CAD s/p PCI with MORGAN 9. s/p fall/rib pain 1 0.type 2 diabetes mellitus: ssi 11. blindness 12. acute on chronic systolic heart failure #13 covid 19 pneumonia with sepsis #14 ?pneumonia- gram positive/neg: iv antibiotics long dw daughter Love- wishes no cpr/dni/defibrillation Plan discussed with: Patient, Spouse My Orders My Orders Orders - JEREMIAS JORDAN MD Procedure Category Date Status Time Renal DIET 09/07/25 Transmitted Standard(2gna,3gk,Lopho) Lunch Pt Request For Service PT 09/07/25 Logged 13:03 Basic Metabolic Panel LAB 09/08/25 Verified 06:00 Complete Blood Count LAB 09/08/25 Verified 06:00 Chest Portable XY 09/08/25 Logged 06:00 Dietary Evaluation Review Comments: Reinforce CCHO-60 Renal Standard Diet Educate on dietary NA, fluid and glucose control Expected Outcomes/Goals: Controlled DM, with dietary control of CCHO and fluid restriction Critical Care Time (mins): 46 (critical care time excluding procedures is 46 mins) Date of Service: Sep 07, 2025 Billing Provider: JEREMIAS JORDAN MD Common Visit Codes: [id number] CARE 30-74 MIN JEREMIAS JORDAN MD Sep 07, 2025 13:13
--- NOTE | 2025-09-08 11:13 | DVHPN2 ---
Progress Note - Dictate Date Seen: Sep 07, 2025 Has the PT tested + for MRSA If YES, has PT been informed?: No Medical Necessity Reason Pt with a Central, PICC or Fol: No Subjective Alert and oriented x 2 Having HD Feels a little better Hungry vital signs Vital Sign Date Time Temp Pulse Resp B/P (MAP) Pulse Ox O2 Delivery O2 Flow Rate FiO2 09/07/25 12:56 108 20 98 09/07/25 12:45 Oxymizer 8.0 09/07/25 12:45 N/A 09/07/25 12:00 98.0 100/46 (64) 98.0 Total Intake and Output 09/06/25 09/06/25 09/07/25 15:00 23:00 07:00 Intake Total 504.75 ml 435.0 ml 865.00 ml Output Total 900 ml 375 ml Balance 504.75 ml -465.0 ml 490.00 ml medications Current Medications Medications Dose Ordered Sig/Rosa Route Start Time Stop Time Status Last Admin Dose Admin Levalbuterol HCl 0.625 mg Q6HR NEB 09/05/25 00:00 09/07/25 12:45 0.625 MG Norepinephrine Bitartrate 250 ml @ 3.75 mls/hr Q24H IV 09/04/25 19:30 Diagnostic Test (Pha) 1 strip ACHS 09/04/25 22:00 09/07/25 11:16 1 STRIP Insulin Human Regular ACHS SC 09/04/25 22:00 09/07/25 11:23 4 UNITS Dextrose 50 ml UD PRN IV 09/04/25 19:30 Ondansetron HCl 4 mg Q4HP PRN IV 09/04/25 19:30 Acetaminophen 650 mg Q6HP PRN PO 09/04/25 19:30 09/07/25 03:08 650 MG Cefepime HCl 50 ml @ 12.5 mls/hr DAILY IV 09/05/25 10:00 09/07/25 09:36 12.5 MLS/HR Vancomycin HCl 0 ml @ 0 mls/hr PER PHARMACY IV 09/05/25 03:45 Phenylephrine HCl 250 ml @ 30 mls/hr Q8H20M IV 09/05/25 03:45 09/07/25 11:08 30 MLS/HR Labetalol HCl 10 mg Q4HP PRN IV 09/05/25 15:00 Dexamethasone Sodium Phosphate 4 mg DAILY IV 09/06/25 10:00 09/07/25 09:36 4 MG Lorazepam 0.5 mg Q6HP PRN IV 09/05/25 15:00 Pantoprazole Sodium 40 mg DAILY IV 09/06/25 10:00 09/07/25 09:36 40 MG Acetaminophen/ Hydrocodone Bitart 1 tab Q4HPRN PRN PO 09/07/25 10:30 09/07/25 11:26 1 TAB Heparin Sodium/ Dextrose 250 ml @ 7 mls/hr Q24H IV 09/07/25 11:00 09/07/25 11:15 7 MLS/HR Phenylephrine HCl 80 mg/Sodium Chloride 250 ml @ 7.5 mls/hr Q24H IV 09/07/25 13:00 Albumin Human 100 ml @ 100 mls/hr ARVIND IV 09/07/25 12:30 09/08/25 13:29 objective NAD Lungs: bilateral rales CV: irregular rhythm, II/ CLARISSA, no pericardial rub Abdomen: mildly distended, froilan ascites Trace leg edema Neuro: non focal laboratory and microbiology Laboratory Tests 09/07/25 09:58 Test 09/07/25 09:58 Range/Units Serum Glucose 242 H 74-106 mg/dL Problem List 1. ESRD, HD today 2. COVID infection 4. Cbqmdtiv-jc-geuttf mitral regurgitation 6. Aortic stenosis 7. NSTEMI 9. s/p fall/rib pain 10. DM2 12. H/O CHF, exacerbated Plan: HD today, UF goal lowered to 1 L only due tpo boerderline low BP plus patient is euvolemic Dietary Evaluation Review Comments: Reinforce CCHO-60 Renal Standard Diet Educate on dietary NA, fluid and glucose control Expected Outcomes/Goals: Controlled DM, with dietary control of CCHO and fluid restriction Plan discussed with: Patient GARRETT CODY MD Sep 07, 2025 13:08
[2025-09-08] MEDS ORDERED: InsuLIN REG 1unit/0.01ml Soln (100units/ml) SC SCH ×2 (11:30→22:00)
--- NOTE | 2025-09-08 11:34 | DVHPN2 ---
Progress Note - Dictate Date Seen: Sep 07, 2025 Has the PT tested + for MRSA If YES, has PT been informed?: No Medical Necessity Reason Pt with a Central, PICC or Fol: No Subjective Patient was seen and evaluated in follow-up in the ICU. The patient denies any cardiac symptoms at time of assessment. Patient is on 12 L Oxymizer. Patient is maintained on Heparin drip. WBC 21.4, HGB 8, HCT 25.6, PTT 42.1, BUN 25, DRIVE WORKER 5.61, GLUC 242, CA 7.1, AST 100, ALT 107. vital signs Vital Sign Date Time Temp Pulse Resp B/P (MAP) Pulse Ox O2 Delivery O2 Flow Rate FiO2 09/07/25 12:00 102 09/07/25 12:00 98.0 22 100/46 (64) 93 98.0 09/07/25 08:00 Oxymizer 12 N/A Total Intake and Output 09/06/25 09/06/25 09/07/25 15:00 23:00 07:00 Intake Total 504.75 ml 435.0 ml 865.00 ml Output Total 900 ml 375 ml Balance 504.75 ml -465.0 ml 490.00 ml medications Current Medications Medications Dose Ordered Sig/Rosa Route Start Time Stop Time Status Last Admin Dose Admin Levalbuterol HCl 0.625 mg Q6HR NEB 09/05/25 00:00 09/07/25 07:00 0.625 MG Norepinephrine Bitartrate 250 ml @ 3.75 mls/hr Q24H IV 09/04/25 19:30 Diagnostic Test (Pha) 1 strip ACHS 09/04/25 22:00 09/07/25 11:16 1 STRIP Insulin Human Regular ACHS SC 09/04/25 22:00 09/07/25 11:23 4 UNITS Dextrose 50 ml UD PRN IV 09/04/25 19:30 Ondansetron HCl 4 mg Q4HP PRN IV 09/04/25 19:30 Acetaminophen 650 mg Q6HP PRN PO 09/04/25 19:30 09/07/25 03:08 650 MG Cefepime HCl 50 ml @ 12.5 mls/hr DAILY IV 09/05/25 10:00 09/07/25 09:36 12.5 MLS/HR Vancomycin HCl 0 ml @ 0 mls/hr PER PHARMACY IV 09/05/25 03:45 Phenylephrine HCl 250 ml @ 30 mls/hr Q8H20M IV 09/05/25 03:45 09/07/25 11:08 30 MLS/HR Labetalol HCl 10 mg Q4HP PRN IV 09/05/25 15:00 Dexamethasone Sodium Phosphate 4 mg DAILY IV 09/06/25 10:00 09/07/25 09:36 4 MG Lorazepam 0.5 mg Q6HP PRN IV 09/05/25 15:00 Pantoprazole Sodium 40 mg DAILY IV 09/06/25 10:00 09/07/25 09:36 40 MG Acetaminophen/ Hydrocodone Bitart 1 tab Q4HPRN PRN PO 09/07/25 10:30 09/07/25 11:26 1 TAB Heparin Sodium/ Dextrose 250 ml @ 7 mls/hr Q24H IV 09/07/25 11:00 09/07/25 11:15 7 MLS/HR Phenylephrine HCl 80 mg/Sodium Chloride 250 ml @ 7.5 mls/hr Q24H IV 09/07/25 13:00 UNV Albumin Human 100 ml @ 100 mls/hr ARVIND IV 09/07/25 12:30 09/08/25 13:29 UNV objective GENERAL: Alert and oriented x 3. Ill appearing. EYES: PERRL, EOMI. Anicteric. HENT: Moist mucous membranes. LUNGS: Decreased breath sounds. CARDIOVASCULAR: Regular rate and rhythm. ABDOMEN: Soft, nontender and nondistended. EXTREMITIES: No edema. NEUROLOGIC: No focal neurological deficits. SKIN: Warm, dry. Pale. laboratory and microbiology Laboratory Tests 09/07/25 09:58 Test 09/07/25 09:58 Range/Units Serum Glucose 242 H 74-106 mg/dL Problem List Acute on chronic decompensated HFrEF, NYHA class IV. Acute hypoxic respiratory failure with multifocal pneumonia/COVID-19. Non ST-elevation myocardial infarction rule out progressive coronary artery disease. Hx of cardiopulmonary arrest status post CPR with ROSC (06/2025). 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 Coronary artery disease status post PTCA with multiple MORGAN. Mitral valve insufficiency, severe degree. Aortic valve stenosis, critical. Type 2 diabetes mellitus. ESRD on HD. Assessment/Plan Continued all current supportive medical care. Patient has been seen by Kylie Arriaza NP on my behalf, her and I discussed the plan with the patient. Transthoracic echocardiogram (09/05/2025): LVEF 25% with entire anterior, apical, and distal half of IVS hypokinetic. Heavily calcified mitral/aortic leaflets. Critical aortic valve stenosis with KATARZYNA at 0.8 cm2, peak gradient at 71 mmHg, and mean gradient at 42 mmHg. Transthoracic echocardiogram (06/03/2025): LVEF at 50% with normal RV function. Left atrial enlargement. [id number] mitral insufficiency. Stenosis and thickening of the aortic valve leaflets as well as diminished excursion. Transesophageal echocardiogram (06/04/2025): LVEF about 55% with normal RV function. There appears to be a 2-3 mm vegetation in the inferior medial aspect of the base of the posterior mitral leaflet. Given significantly reduced EF from 50% to 25% with associated anteroapical hypokinesis and critical aortic valve stenosis recommendations are for a right and left cardiac catheterization with coronary angiogram with surgical backup preferably at [facility]. In the meantime, consider dual-antiplatelet therapy, lipid lowering agent with optimal LFTs (currently trending up), vasopressor for hemodynamic stability, and heparin drip per pharmacy protocol. Unable to initiate guideline directed medical therapy for CHF given current vasopressor support. Monitor ECG changes closely and notify accordingly. Monitor H&H closely. Transfuse with PRBC as needed. Continue Nephrology recommendations for HD. Additional plan as per the hospital course. Date of Service: Sep 07, 2025 Billing Provider: ENID RODGERS MD Cardiology Common Codes: [id number] CARE 30-74 MIN Dietary Evaluation Review Comments: Reinforce CCHO-60 Renal Standard Diet Educate on dietary NA, fluid and glucose control Expected Outcomes/Goals: Controlled DM, with dietary control of CCHO and fluid restriction Plan discussed with: Patient ENID RODGERS MD Sep 07, 2025 12:38
--- NOTE | 2025-09-08 11:42 | DVHPN2 ---
Subjective Patient denies any symptoms Reviewed: Care Plan, H&P, Labs Changes from previous H/P or p: No Changes General: Per HPI Objective Vitals Vital Signs Date Time Temp Pulse Resp B/P (MAP) Pulse Ox O2 Delivery O2 Flow Rate FiO2 09/08/25 09:16 91 25 119/80 (93) 99 09/08/25 08:00 98.7 98.7 09/08/25 08:00 Oxymizer 12 N/A Intake/Output Intake and Output 09/08/25 07:00 Intake Total 2716.439 ml Output Total 100 ml Balance 2616.439 ml Intake Oral 1300 ml IV Total 1416.439 ml Output Urine Total 100 ml General Appearance: Alert, Oriented X3, Cooperative, moderate distress HEENT: Atraumatic, PERRLA Lungs: Normal air movement, Other (Bibasilar crackles. Oxymizer 6 L) Cardiovascular: Normal S1, Normal S2, Other (Loud systolic murmur) Abdomen: Normal bowel sounds, Soft, No tenderness Genitourinary: No Apparent Abnormalities (Mathews catheter) Musculoskeletal: Normal sensory function, Normal motor function Neuro: Normal speech Skin: Dry, Intact Psych/Mental Status: Mental status NL, Other (Withdrawn) Medications Current Medications Medications Dose Ordered Sig/Rosa Route Start Time Stop Time Status Last Admin Dose Admin Levalbuterol HCl 0.625 mg Q6HR NEB 09/05/25 00:00 09/08/25 07:41 0.625 MG Norepinephrine Bitartrate 250 ml @ 3.75 mls/hr Q24H IV 09/04/25 19:30 09/07/25 15:37 3.75 MLS/HR Ondansetron HCl 4 mg Q4HP PRN IV 09/04/25 19:30 Acetaminophen 650 mg Q6HP PRN PO 09/04/25 19:30 09/07/25 03:08 650 MG Cefepime HCl 50 ml @ 12.5 mls/hr DAILY IV 09/05/25 10:00 09/07/25 09:36 12.5 MLS/HR Vancomycin HCl 0 ml @ 0 mls/hr PER PHARMACY IV 09/05/25 03:45 Labetalol HCl 10 mg Q4HP PRN IV 09/05/25 15:00 Dexamethasone Sodium Phosphate 4 mg DAILY IV 09/06/25 10:00 09/07/25 09:36 4 MG Lorazepam 0.5 mg Q6HP PRN IV 09/05/25 15:00 Pantoprazole Sodium 40 mg DAILY IV 09/06/25 10:00 09/07/25 09:36 40 MG Acetaminophen/ Hydrocodone Bitart 1 tab Q4HPRN PRN PO 09/07/25 10:30 09/08/25 08:40 1 TAB Phenylephrine HCl 80 mg/Sodium Chloride 250 ml @ 7.5 mls/hr Q24H IV 09/07/25 13:00 09/08/25 06:21 29.063 MLS/HR Albumin Human 100 ml @ 100 mls/hr ARVIND IV 09/07/25 12:30 09/08/25 13:29 Heparin Sodium/ Dextrose 250 ml @ 5 mls/hr Q24H IV 09/07/25 18:00 Cancel Heparin Sodium/ Dextrose 250 ml @ 5 mls/hr Q24H IV 09/08/25 01:30 Insulin Human (Reg)/Sodium Chloride 100 ml @ 0.5 mls/hr Q24H IV 09/08/25 09:00 Dextrose 50 ml UD PRN IV 09/08/25 09:00 Diagnostic Test (Pha) 1 strip Q90MIN 09/08/25 09:00 Laboratory Results Laboratory Tests 09/08/25 03:02 09/08/25 07:33 Chemistry Test 09/07/25 09:58 09/08/25 07:33 Albumin 3.2 g/dL (3.2-4.8) 3.7 g/dL (3.2-4.8) Calcium Level 7.1 mg/dL (8.7-10.4) L 7.7 mg/dL (8.7-10.4) L Total Protein 6.0 g/dL (5.7-8.2) 6.3 g/dL (5.7-8.2) Coagulation Test 09/07/25 09:58 09/07/25 16:40 09/08/25 00:44 09/08/25 07:33 Prothrombin Time 10.9 sec (9.3-11.8) 11.0 sec (9.3-11.8) 11.9 sec (9.3-11.8) H 12.1 sec (9.3-11.8) H Prothrombin Time INR 1.03 (0.9-1.15) 1.04 (0.9-1.15) 1.14 (0.9-1.15) 1.16 (0.9-1.15) H Activated Partial Thromboplast Time 42.1 SEC (24.5-34.5) H 72.9 SEC (24.5-34.5) *H 83.3 SEC (24.5-34.5) *H 53.4 SEC (24.5-34.5) H Cardiac Markers Test 09/07/25 09:58 B-Type Natriuretic Peptide 3788.88 pg/mL (0-100) LFT Test 09/07/25 09:58 09/08/25 07:33 Alanine Aminotransferase (ALT) 107 U/L (7-40) H 216 U/L (7-40) H Alkaline Phosphatase 61 U/L (46-116) 102 U/L (46-116) Aspartate Amino Transferase (AST) 100 U/L (13-40) H 225 U/L (13-40) H Total Bilirubin 0.4 mg/dL (0.2-1.0) 0.8 mg/dL (0.2-1.0) Microbiology Microbiology Date/Time Source Procedure Growth Status 09/06/25 22:01 Nose MRSA Screen - Final Complete 09/04/25 11:00 Blood Blood Culture - Preliminary NO GROWTH AFTER 72 HOURS OF INCUBATION. Resulted Labs and/or images reviewed: Labs reviewed by me, Image(s) reviewed by me Assessment/Plan Assessment/Plan Impression: -acute hypoxic respiratory failure -acute on chronic systolic and diastolic heart failure with worsening ejection fraction -septic shock -COVID-19 -bilateral pneumonia,? Septic emboli etiology -history of endocarditis -coronary artery disease with previous stent placement -severe aortic stenosis -patient is legally blind -ESRD with hemodialysis -severe pulmonary vascular congestion -diabetes mellitus -DKA -NSTEMI,? Type 1 Plan: -continue O2 supplementation to keep saturation greater than 92%. Currently on Oxymizer at 6 L/min. -cardiology consultation: Continue heparin drip per protocol -stop regular insulin sliding scale and glipizide. Start insulin drip -continue antibiotic therapy with cefepime and vancomycin -PUD prophylaxis -nephrology consultation: Patient had hemodialysis yesterday -continue to wean Gerald-Synephrine drip -repeat labs and chest x-ray in a.m. -patient unstable to transfer to [facility] Plan of care discussed with the patient's daughter who was bedside. Critical care time spent with patient discussing and formulating plan of care: 40 minutes. This does not include time spent performing procedures. This medical document was created using an electronic medical record system with [employer] dictation system. Although this document has been carefully reviewed, there may still be some phonetic and typographical errors. These areas are purely typographical due to imperfections of the software programs, and do not reflect any compromise in the patient's medical care. Plan discussed with: Patient, Daughter, Other (RN) My Orders Orders - BERRY MARTINEZ NP Procedure Category Date Status Time Insulin Drip Protocol FRANK 09/08/25 In Process Insulin Drip 100 PHA 09/08/25 In Process Unit/100ml (Myxredlin 09:00 Dextrose 50% Syringe PHA 09/08/25 In Process 09:00 Glucose Blood PHA 09/08/25 In Process (Accu-Chek Comfort 09:00 Neurological FRANK 09/08/25 In Process Assessment 08:48 Basic Metabolic Panel LAB 09/08/25 Logged 15:00 Date of Service: Sep 08, 2025 Billing Provider: BERRY MARTINEZ NP Common Visit Codes: [id number] CARE 30-74 MIN BERRY MARTINEZ NP Sep 08, 2025 09:43
--- NOTE | 2025-09-08 11:45 | DVHPN2 ---
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 She denies any cardiac symptoms at time of assessment Objective vital signs Vital Sign Date Time Temp Pulse Resp B/P (MAP) Pulse Ox O2 Delivery O2 Flow Rate FiO2 09/08/25 11:30 90 25 123/66 (85) 100 09/08/25 08:00 98.7 98.7 09/08/25 08:00 Oxymizer 12 N/A Total Intake and Output 09/07/25 09/07/25 09/08/25 15:00 23:00 07:00 Intake Total 704.063 ml 1352.25 ml 660.126 ml Output Total 25 ml 75 ml Balance 704.063 ml 1327.25 ml 585.126 ml medications Current Medications Medications Dose Ordered Sig/Rosa Route Start Time Stop Time Status Last Admin Dose Admin Levalbuterol HCl 0.625 mg Q6HR NEB 09/05/25 00:00 09/08/25 07:41 0.625 MG Norepinephrine Bitartrate 250 ml @ 3.75 mls/hr Q24H IV 09/04/25 19:30 09/07/25 15:37 3.75 MLS/HR Ondansetron HCl 4 mg Q4HP PRN IV 09/04/25 19:30 Acetaminophen 650 mg Q6HP PRN PO 09/04/25 19:30 09/07/25 03:08 650 MG Cefepime HCl 50 ml @ 12.5 mls/hr DAILY IV 09/05/25 10:00 09/08/25 10:06 12.5 MLS/HR Vancomycin HCl 0 ml @ 0 mls/hr PER PHARMACY IV 09/05/25 03:45 Labetalol HCl 10 mg Q4HP PRN IV 09/05/25 15:00 Dexamethasone Sodium Phosphate 4 mg DAILY IV 09/06/25 10:00 09/08/25 10:06 4 MG Lorazepam 0.5 mg Q6HP PRN IV 09/05/25 15:00 Pantoprazole Sodium 40 mg DAILY IV 09/06/25 10:00 09/08/25 10:06 40 MG Acetaminophen/ Hydrocodone Bitart 1 tab Q4HPRN PRN PO 09/07/25 10:30 09/08/25 08:40 1 TAB Phenylephrine HCl 80 mg/Sodium Chloride 250 ml @ 7.5 mls/hr Q24H IV 09/07/25 13:00 09/08/25 06:21 29.063 MLS/HR Albumin Human 100 ml @ 100 mls/hr ARVIND IV 09/07/25 12:30 09/08/25 13:29 Heparin Sodium/ Dextrose 250 ml @ 5 mls/hr Q24H IV 09/07/25 18:00 Cancel Heparin Sodium/ Dextrose 250 ml @ 5 mls/hr Q24H IV 09/08/25 01:30 Insulin Human (Reg)/Sodium Chloride 100 ml @ 0.5 mls/hr Q24H IV 09/08/25 09:00 09/08/25 10:09 0.5 MLS/HR Dextrose 50 ml UD PRN IV 09/08/25 09:00 Diagnostic Test (Pha) 1 strip Q90MIN 09/08/25 09:00 09/08/25 10:37 1 STRIP Enteral Nutritional Formula 240 ml TIDWM PO 09/08/25 12:00 UNV Examination: GENERAL:Abnormal (Generalized weakness), LUNGS:Normal, CVS:Abnormal (Normal sinus rhythm with depressed T-waves on monitor), NEURO:Normal laboratory and microbiology Laboratory Tests 09/08/25 07:33 09/08/25 03:02 Test 09/08/25 07:33 Range/Units Serum Glucose 436 *H 74-106 mg/dL Problem List/Assessment/Plan Problem List/Assessment/Plan Acute on chronic decompensated HFrEF, NYHA class IV Acute hypoxic respiratory failure with multifocal pneumonia/COVID-[address]-elevation myocardial infarction, rule out progressive coronary artery disease Hx of cardiopulmonary arrest status post CPR with ROSC (06/2025) 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 Rodgers): * Transthoracic echocardiogram (09/05/2025): LVEF 25% with entire anterior, apical, and distal half of IVS hypokinetic. Heavily calcified mitral/aortic leaflets. Critical aortic valve stenosis with KATARZYNA at 0.8 cm2, peak gradient at 71 mmHg, and mean gradient at 42 mmHg. * Transthoracic echocardiogram (06/03/2025): LVEF at 50% with normal RV function. Left atrial enlargement. Jljqslbe-hx-mkybhv mitral insufficiency. Stenosis and thickening of the aortic valve leaflets as well as diminished excursion. * Transesophageal echocardiogram (06/04/2025): LVEF about 55% with normal RV function. There appears to be a 2-3 mm vegetation in the inferior medial aspect of the base of the posterior mitral leaflet. Plan: Given significantly reduced EF from 50% to 25% with associated anteroapical hypokinesis and critical aortic valve stenosis recommendations are for a right and left cardiac catheterization with coronary angiogram with surgical backup preferably at [facility]. In the meantime, consider dual-antiplatelet therapy, lipid lowering agent with optimal LFTs (currently trending up), vasopressor for hemodynamic stability, and heparin drip per pharmacy protocol. Unable to initiate guideline directed medical therapy for CHF given current vasopressor support. Monitor ECG changes closely and notify accordingly. Monitor H&H closely. Transfuse with PRBC as needed. Continue Nephrology recommendations for HD. Further orders per clinical course. Thank you for allowing us to participate in this patient's care. Please call if you have any questions or concerns. Critical care time spent: 40 minutes. This medical document was created using an electronic medical record system with voice recognition software and computerized dictation system. Although this document has been carefully reviewed, there might still be some phonetic and typographical errors. Occasional wrong-word or ``sound-alike substitutions may have occurred due to the inherent limitations of voice recognition software. These areas are purely typographical due to imperfections of the software programs and do not reflect any compromise in the patient's medical care. Please read the chart carefully and recognize, using context, where these substitutions have occurred. Plan discussed with: Patient (on 10L oxymizer) Dietary Evaluation Review Comments: Reinforce CCHO-60 Renal Standard Diet Educate on dietary NA, fluid and glucose control Expected Outcomes/Goals: Controlled DM, with dietary control of CCHO and fluid restriction Date of Service: Sep 08, 2025 Billing Provider: TIANA ANDRADE Common Visit Codes: [id number] CARE 30-74 MIN ENID RODGERS MD 09/08/25 1254: TIANA ANDRADE Sep 08, 2025 11:45 ENID RODGERS MD Sep 08, 2025 12:54
[2025-09-08] MEDS: Nepro With Carbsteady ButterPecan 8oz Carton PO SCH (12:00)
--- NOTE | 2025-09-08 12:54 | DVHPN2 ---
Consult Progress Note Date Seen: Sep 08, 2025 Subjective Other Systems: Patient was seen and evaluated in follow up in the ICU. The patient remains in normal sinus rhythm with depressed T-waves on snuff drier. She denies any cardiac symptoms at time of assessment. WBC 14.2, HGB 7.9, HCT 24.8, BUN 41, TAX ASSESSOR 3.73, GLUC 404, AST 225, ALT 216. Chest x-ray shows stable appearing moderately consolidative of multifocal bilateral pulmonary airspace disease and small right pleural effusion. Objective vital signs Vital Sign Date Time Temp Pulse Resp B/P (MAP) Pulse Ox O2 Delivery O2 Flow Rate FiO2 09/08/25 10:00 113 09/08/25 09:16 25 119/80 (93) 99 09/08/25 08:00 98.7 98.7 09/08/25 08:00 Oxymizer 12 N/A Total Intake and Output 09/07/25 09/07/25 09/08/25 15:00 23:00 07:00 Intake Total 704.063 ml 1352.25 ml 660.126 ml Output Total 25 ml 75 ml Balance 704.063 ml 1327.25 ml 585.126 ml medications Current Medications Medications Dose Ordered Sig/Rosa Route Start Time Stop Time Status Last Admin Dose Admin Levalbuterol HCl 0.625 mg Q6HR NEB 09/05/25 00:00 09/08/25 07:41 0.625 MG Norepinephrine Bitartrate 250 ml @ 3.75 mls/hr Q24H IV 09/04/25 19:30 09/07/25 15:37 3.75 MLS/HR Ondansetron HCl 4 mg Q4HP PRN IV 09/04/25 19:30 Acetaminophen 650 mg Q6HP PRN PO 09/04/25 19:30 09/07/25 03:08 650 MG Cefepime HCl 50 ml @ 12.5 mls/hr DAILY IV 09/05/25 10:00 09/08/25 10:06 12.5 MLS/HR Vancomycin HCl 0 ml @ 0 mls/hr PER PHARMACY IV 09/05/25 03:45 Labetalol HCl 10 mg Q4HP PRN IV 09/05/25 15:00 Dexamethasone Sodium Phosphate 4 mg DAILY IV 09/06/25 10:00 09/08/25 10:06 4 MG Lorazepam 0.5 mg Q6HP PRN IV 09/05/25 15:00 Pantoprazole Sodium 40 mg DAILY IV 09/06/25 10:00 09/08/25 10:06 40 MG Acetaminophen/ Hydrocodone Bitart 1 tab Q4HPRN PRN PO 09/07/25 10:30 09/08/25 08:40 1 TAB Phenylephrine HCl 80 mg/Sodium Chloride 250 ml @ 7.5 mls/hr Q24H IV 09/07/25 13:00 09/08/25 06:21 29.063 MLS/HR Albumin Human 100 ml @ 100 mls/hr ARVIND IV 09/07/25 12:30 09/08/25 13:29 Heparin Sodium/ Dextrose 250 ml @ 5 mls/hr Q24H IV 09/07/25 18:00 Cancel Heparin Sodium/ Dextrose 250 ml @ 5 mls/hr Q24H IV 09/08/25 01:30 Insulin Human (Reg)/Sodium Chloride 100 ml @ 0.5 mls/hr Q24H IV 09/08/25 09:00 09/08/25 10:09 0.5 MLS/HR Dextrose 50 ml UD PRN IV 09/08/25 09:00 Diagnostic Test (Pha) 1 strip Q90MIN 09/08/25 09:00 09/08/25 10:37 1 STRIP Examination: GENERAL:Abnormal (Generalized weakness), HEENT:Normal, NECK:Normal, LUNGS:Normal, CVS:Abnormal (Normal sinus rhythm with depressed T- waves on monitor), ABDOMEN:Normal, MSK:Normal, SKIN:Normal, NEURO:Normal laboratory and microbiology Laboratory Tests 09/08/25 07:33 09/08/25 03:02 Test 09/08/25 07:33 Range/Units Serum Glucose 436 *H 74-106 mg/dL Problem List/Assessment/Plan Problem List/Assessment/Plan Problem List Acute on chronic decompensated HFrEF, NYHA class IV. Acute hypoxic respiratory failure with multifocal pneumonia/COVID-19. Non ST-elevation myocardial infarction, rule out progressive coronary artery disease. Hx of cardiopulmonary arrest status post CPR with ROSC (06/2025). 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 Coronary artery disease status post PTCA with multiple MORGAN. Mitral valve insufficiency, severe degree. Aortic valve stenosis, critical. Type 2 diabetes mellitus. ESRD on HD. Plan/Recommendation Continued all current supportive medical care. Patient has been seen by Kylie Arriaza NP on my behalf, her/him and I discussed the plan with the patient. Transthoracic echocardiogram (09/05/2025): LVEF 25% with entire anterior, apical, and distal half of IVS hypokinetic. Heavily calcified mitral/aortic leaflets. Critical aortic valve stenosis with KATARZYNA at 0.8 cm2, peak gradient at 71 mmHg, and mean gradient at 42 mmHg. Transthoracic echocardiogram (06/03/2025): LVEF at 50% with normal RV function. Left atrial enlargement. Azktjosy-ri-gizbja mitral insufficiency. Stenosis and thickening of the aortic valve leaflets as well as diminished excursion. Transesophageal echocardiogram (06/04/2025): LVEF about 55% with normal RV function. There appears to be a 2-3 mm vegetation in the inferior medial aspect of the base of the posterior mitral leaflet. Given significantly reduced EF from 50% to 25% with associated anteroapical hypokinesis and critical aortic valve stenosis recommendations are for a right and left cardiac catheterization with coronary angiogram with surgical backup preferably at [facility]. In the meantime, consider dual-antiplatelet therapy, lipid lowering agent with optimal LFTs (currently trending up), vasopressor for hemodynamic stability, and heparin drip per pharmacy protocol. Unable to initiate guideline directed medical therapy for CHF given current vasopressor support. Monitor ECG changes closely and notify accordingly. Monitor H&H closely. Transfuse with PRBC as needed. Continue Nephrology recommendations for HD. Additional plan as per the hospital course. Plan discussed with: Patient Dietary Evaluation Review Comments: Reinforce CCHO-60 Renal Standard Diet Educate on dietary NA, fluid and glucose control Expected Outcomes/Goals: Controlled DM, with dietary control of CCHO and fluid restriction Date of Service: Sep 08, 2025 Billing Provider: ENID RODGERS MD Cardiology Common Codes: [id number] CARE 30-74 MIN ENID RODGERS MD Sep 08, 2025 11:23
--- NOTE | 2025-09-08 13:50 | DVHPN2 ---
Progress Note - Dictate Date Seen: Sep 08, 2025 Has the PT tested + for MRSA If YES, has PT been informed?: No Medical Necessity Reason Pt with a Central, PICC or Fol: No Subjective No new complaints vital signs Vital Sign Date Time Temp Pulse Resp B/P (MAP) Pulse Ox O2 Delivery O2 Flow Rate FiO2 09/08/25 13:19 96 25 100 09/08/25 13:12 Oxymizer 6.0 09/08/25 12:15 135/82 (99) 09/08/25 12:00 98.2 98.2 09/08/25 08:00 N/A Total Intake and Output 09/07/25 09/07/25 09/08/25 15:00 23:00 07:00 Intake Total 704.063 ml 1352.25 ml 660.126 ml Output Total 25 ml 75 ml Balance 704.063 ml 1327.25 ml 585.126 ml medications Current Medications Medications Dose Ordered Sig/Rosa Route Start Time Stop Time Status Last Admin Dose Admin Levalbuterol HCl 0.625 mg Q6HR NEB 09/05/25 00:00 09/08/25 13:06 0.625 MG Norepinephrine Bitartrate 250 ml @ 3.75 mls/hr Q24H IV 09/04/25 19:30 09/07/25 15:37 3.75 MLS/HR Ondansetron HCl 4 mg Q4HP PRN IV 09/04/25 19:30 Acetaminophen 650 mg Q6HP PRN PO 09/04/25 19:30 09/07/25 03:08 650 MG Cefepime HCl 50 ml @ 12.5 mls/hr DAILY IV 09/05/25 10:00 09/08/25 10:06 12.5 MLS/HR Vancomycin HCl 0 ml @ 0 mls/hr PER PHARMACY IV 09/05/25 03:45 Labetalol HCl 10 mg Q4HP PRN IV 09/05/25 15:00 Dexamethasone Sodium Phosphate 4 mg DAILY IV 09/06/25 10:00 09/08/25 10:06 4 MG Lorazepam 0.5 mg Q6HP PRN IV 09/05/25 15:00 Pantoprazole Sodium 40 mg DAILY IV 09/06/25 10:00 09/08/25 10:06 40 MG Acetaminophen/ Hydrocodone Bitart 1 tab Q4HPRN PRN PO 09/07/25 10:30 09/08/25 08:40 1 TAB Phenylephrine HCl 80 mg/Sodium Chloride 250 ml @ 7.5 mls/hr Q24H IV 09/07/25 13:00 09/08/25 06:21 29.063 MLS/HR Heparin Sodium/ Dextrose 250 ml @ 5 mls/hr Q24H IV 09/07/25 18:00 Cancel Heparin Sodium/ Dextrose 250 ml @ 5 mls/hr Q24H IV 09/08/25 01:30 Insulin Human (Reg)/Sodium Chloride 100 ml @ 0.5 mls/hr Q24H IV 09/08/25 09:00 09/08/25 10:09 0.5 MLS/HR Dextrose 50 ml UD PRN IV 09/08/25 09:00 Diagnostic Test (Pha) 1 strip Q90MIN 09/08/25 09:00 09/08/25 12:10 1 STRIP Enteral Nutritional Formula 240 ml TIDWM PO 09/08/25 12:00 objective NAD Lungs: bilateral rales CV: irregular rhythm, II/ CLARISSA, no pericardial rub Abdomen: mildly distended, froilan ascites Trace leg edema Neuro: non focal laboratory and microbiology Laboratory Tests 09/08/25 07:33 09/08/25 03:02 Test 09/08/25 07:33 Range/Units Serum Glucose 436 *H 74-106 mg/dL Problem List 1. ESRD, stable 2. COVID infection 4. Muxqihyf-wx-vpmtlo mitral regurgitation 6. Aortic stenosis 7. NSTEMI 9. s/p fall/rib pain 10. DM2 12. H/O CHF Plan: HD again tomorrow Low UF goal since patient is volume depleted NS bolus, wean off pressor support Dietary Evaluation Review Comments: Reinforce CCHO-60 Renal Standard Diet Educate on dietary NA, fluid and glucose control Expected Outcomes/Goals: Controlled DM, with dietary control of CCHO and fluid restriction Plan discussed with: Patient GARRETT CODY MD Sep 08, 2025 13:50
[2025-09-08 14:09] LABS: INR 1.15 (0.9-1.15); Partial Thromboplastin Time 45.7 SEC (24.5-34.5); Prothrombin Time 12.0 sec (9.3-11.8)
--- NOTE | 2025-09-08 14:29 | CONS ---
Pharmacy Clinical Information: INCREASE HEPARIN DRIP RATE TO 700 UNITS/HR PER APTT OF 45.7 NEXT APTT DRAW SCHEDULED FOR 2029 PER RX PROTOCOL ELISA PICKETT CONFIRMED AND READ BACK Bozena Grady PHARMACIST Sep 08, 2025 14:29
[2025-09-08 16:13] LABS: Chloride 100 mmol/L (98-107); Sodium 138 mmol/L (136-145)
[2025-09-08 16:14] LABS: Anion Gap 15 (5-15); Carbon Dioxide 23 mmol/L (20-31)
[2025-09-08 16:20] LABS: BUN/Creatinine Ratio 10.8 (10.0-20.0)
[2025-09-08 16:24] LABS: Blood Urea Nitrogen 44 mg/dL (9-23); Calcium 7.4 mg/dL (8.7-10.4); Glucose 378 mg/dL (74-106); Potassium 3.4 mmol/L (3.5-5.1)
[2025-09-08] MEDS: INSULIN LANTUS (GLARGINE) 1 /0.01ml (100units/ml) SC SCH (17:20)
[2025-09-08] MEDS: InsuLIN REG 1unit/0.01ml Soln (100units/ml) SC SCH (18:00)
[2025-09-08] MEDS ORDERED: ACCU-CHEK COMFORT CURVE STRIP VI SCH (18:00)
[2025-09-08 21:48] LABS: INR 1.12 (0.9-1.15); Partial Thromboplastin Time 30.0 SEC (24.5-34.5); Prothrombin Time 11.7 sec (9.3-11.8)
[2025-09-08] MEDS: HEPARIN SODIUM (PORCINE) 5000 UNITS/ML 1ML VIAL IV ONE (22:36)
[2025-09-09] VITALS (70 sets, daily range): BP systolic 111–164; BP diastolic 49–95; PULSE 85–133; RESP 12–29; TEMP 96.8–98.6; O2SAT 93–100
[2025-09-09 04:12] LABS: Hematocrit 19.6 % (36.0-46.0); Mean Corpuscular Hemoglobin 31.7 pg (28.0-32.0); Mean Corpuscular Volume 94.0 fL (80.0-100.0); Nucleated Red Blood Cells % 1.0 %
[2025-09-09 04:14] LABS: Hemoglobin 6.6 g/dL (12.2-16.2)
[2025-09-09 04:50] LABS: INR 1.20 (0.9-1.15); Prothrombin Time 12.5 sec (9.3-11.8)
[2025-09-09 04:56] LABS: Partial Thromboplastin Time > 139.0 SEC (24.5-34.5)
[2025-09-09 05:18] LABS: Albumin 3.5 g/dL (3.2-4.8); Anion Gap 15 (5-15); BUN/Creatinine Ratio 14.2 (10.0-20.0); Bilirubin, Total 0.5 mg/dL (0.2-1.0); Carbon Dioxide 23 mmol/L (20-31); Chloride 98 mmol/L (98-107); Potassium 3.6 mmol/L (3.5-5.1); Sodium 136 mmol/L (136-145); Total Protein 6.0 g/dL (5.7-8.2)
[2025-09-09 05:22] LABS: Alanine Aminotransferase 310 U/L (7-40); Alkaline Phosphatase 117 U/L (46-116); Blood Urea Nitrogen 67 mg/dL (9-23); Calcium 7.3 mg/dL (8.7-10.4); Glucose 396 mg/dL (74-106)
[2025-09-09] MEDS: HEPARIN DRIP/D5W 100UNITS/ML 250 ML IV SCH ×2 (06:50→14:03)
[2025-09-09] MEDS ORDERED: glipiZIDE 5 MG TAB PO SCH (07:00)
--- NOTE | 2025-09-09 10:20 | DVHPN2 ---
Progress Note - Dictate Date Seen: Sep 09, 2025 Has the PT tested + for MRSA If YES, has PT been informed?: No Medical Necessity Reason Pt with a Central, PICC or Fol: No Subjective Very weak vital signs Vital Sign Date Time Temp Pulse Resp B/P (MAP) Pulse Ox O2 Delivery O2 Flow Rate FiO2 09/09/25 09:00 97.9 88 16 119/74 (89) 99 97.9 09/09/25 08:00 Nasal Cannula* 2 28 Total Intake and Output 09/08/25 09/08/25 09/09/25 15:00 23:00 07:00 Intake Total 368.982 ml 760 ml 67 ml Output Total 70 ml Balance 368.982 ml 690 ml 67 ml medications Current Medications Medications Dose Ordered Sig/Rosa Route Start Time Stop Time Status Last Admin Dose Admin Levalbuterol HCl 0.625 mg Q6HR NEB 09/05/25 00:00 09/09/25 06:55 0.625 MG Norepinephrine Bitartrate 250 ml @ 3.75 mls/hr Q24H IV 09/04/25 19:30 09/07/25 15:37 3.75 MLS/HR Ondansetron HCl 4 mg Q4HP PRN IV 09/04/25 19:30 Acetaminophen 650 mg Q6HP PRN PO 09/04/25 19:30 09/07/25 03:08 650 MG Cefepime HCl 50 ml @ 12.5 mls/hr DAILY IV 09/05/25 10:00 09/08/25 10:06 12.5 MLS/HR Vancomycin HCl 0 ml @ 0 mls/hr PER PHARMACY IV 09/05/25 03:45 Labetalol HCl 10 mg Q4HP PRN IV 09/05/25 15:00 Dexamethasone Sodium Phosphate 4 mg DAILY IV 09/06/25 10:00 09/09/25 10:02 4 MG Lorazepam 0.5 mg Q6HP PRN IV 09/05/25 15:00 Pantoprazole Sodium 40 mg DAILY IV 09/06/25 10:00 09/09/25 10:02 40 MG Acetaminophen/ Hydrocodone Bitart 1 tab Q4HPRN PRN PO 09/07/25 10:30 09/09/25 08:11 1 TAB Phenylephrine HCl 80 mg/Sodium Chloride 250 ml @ 7.5 mls/hr Q24H IV 09/07/25 13:00 09/08/25 06:21 29.063 MLS/HR Heparin Sodium/ Dextrose 250 ml @ 5 mls/hr Q24H IV 09/07/25 18:00 Cancel Enteral Nutritional Formula 240 ml TIDWM PO 09/08/25 12:00 09/08/25 18:18 240 ML Insulin Glargine 15 units HS SC 09/08/25 22:00 09/08/25 17:20 15 UNITS Insulin Human Regular IQ4HR SC 09/08/25 18:00 09/09/25 08:03 6 UNITS Dextrose 50 ml UD PRN IV 09/08/25 17:15 Diagnostic Test (Pha) 1 strip IQ4HR 09/08/25 20:00 09/09/25 08:04 1 STRIP Heparin Sodium/ Dextrose 250 ml @ 7 mls/hr Q24H IV 09/09/25 06:45 09/09/25 06:50 7 MLS/HR objective NAD Lungs: bilateral rales CV: irregular rhythm, II/ CLARISSA, no pericardial rub Abdomen: mildly distended, froilan ascites Trace leg edema Neuro: non focal laboratory and microbiology Laboratory Tests 09/09/25 03:25 Test 09/09/25 03:25 Range/Units Serum Glucose 396 H 74-106 mg/dL Problem List 1. ESRD 2. COVID infection 3. Dzcqpiac-eb-nrtvst mitral regurgitation 4. Aortic stenosis 5. NSTEMI 6. s/p fall/rib pain 7. DM2 8. H/O CHF 9. Severe anemia Plan: HD today, no heparin Blood transfusion Low UF goal since patient is volume depleted Dietary Evaluation Review Comments: Reinforce CCHO-60 Renal Standard Diet Educate on dietary NA, fluid and glucose control Expected Outcomes/Goals: Controlled DM, with dietary control of CCHO and fluid restriction Plan discussed with: Patient GARRETT CODY MD Sep 09, 2025 10:20
[2025-09-09] MEDS: SODIUM CHL 0.9% 1000 ML BAG XX ONE (11:44)
[2025-09-09 13:11] LABS: Hematocrit 26.4 % (36.0-46.0); Hemoglobin 8.8 g/dL (12.2-16.2); Mean Corpuscular Hemoglobin 30.2 pg (28.0-32.0); Mean Corpuscular Volume 91.2 fL (80.0-100.0); Nucleated Red Blood Cells % 3.4 %
[2025-09-09 13:26] LABS: INR 1.09 (0.9-1.15); Partial Thromboplastin Time 29.0 SEC (24.5-34.5); Prothrombin Time 11.5 sec (9.3-11.8)
--- NOTE | 2025-09-09 13:56 | CONS ---
Pharmacy Clinical Information: HEPARIN PER [facility] PROTOCOL: APTT result of 29.0 received from draw on 09/09 @1253. Bolus of 5000 units + increase rate 300 units per hour. New rate is 1000 units per hour (10ml/hr). Orders read back and confirmed with ELISA Mcpherson @9933. Next APTT scheduled for 1999. THIAGO JONES PHARMACIST Sep 09, 2025 13:56
[2025-09-09] MEDS: HEPARIN SODIUM (PORCINE) 5000 UNITS/ML 1ML VIAL IV ONE (14:02)
--- NOTE | 2025-09-09 14:04 | DVHPN2 ---
Progress Note Date Seen: Sep 09, 2025 Has the PT tested + for MRSA If YES, has PT been informed?: No Medical Necessity Reason Pt with a Central, PICC or Fol: No Subjective Patient reports: No new complaints (Patient's hemoglobin stable around eight after being transfused. No gross bleeding), Other (no changes) Changes from previous H/P or p: No Changes Objective vital signs Vital Sign Date Time Temp Pulse Resp B/P (MAP) Pulse Ox O2 Delivery O2 Flow Rate FiO2 09/09/25 13:20 106 14 147/94 (111) 97 09/09/25 12:00 96.8 96.8 09/09/25 11:43 Nasal Cannula 2.0 09/09/25 11:43 28 Total Intake and Output 09/08/25 09/08/25 09/09/25 15:00 23:00 07:00 Intake Total 368.982 ml 760 ml 67 ml Output Total 70 ml Balance 368.982 ml 690 ml 67 ml medications Current Medications Medications Dose Ordered Sig/Rosa Route Start Time Stop Time Status Last Admin Dose Admin Levalbuterol HCl 0.625 mg Q6HR NEB 09/05/25 00:00 09/09/25 11:42 0.625 MG Norepinephrine Bitartrate 250 ml @ 3.75 mls/hr Q24H IV 09/04/25 19:30 09/07/25 15:37 3.75 MLS/HR Ondansetron HCl 4 mg Q4HP PRN IV 09/04/25 19:30 Acetaminophen 650 mg Q6HP PRN PO 09/04/25 19:30 09/07/25 03:08 650 MG Cefepime HCl 50 ml @ 12.5 mls/hr DAILY IV 09/05/25 10:00 09/09/25 11:25 12.5 MLS/HR Vancomycin HCl 0 ml @ 0 mls/hr PER PHARMACY IV 09/05/25 03:45 Labetalol HCl 10 mg Q4HP PRN IV 09/05/25 15:00 Dexamethasone Sodium Phosphate 4 mg DAILY IV 09/06/25 10:00 09/09/25 10:02 4 MG Lorazepam 0.5 mg Q6HP PRN IV 09/05/25 15:00 Pantoprazole Sodium 40 mg DAILY IV 09/06/25 10:00 09/09/25 10:02 40 MG Acetaminophen/ Hydrocodone Bitart 1 tab Q4HPRN PRN PO 09/07/25 10:30 09/09/25 08:11 1 TAB Phenylephrine HCl 80 mg/Sodium Chloride 250 ml @ 7.5 mls/hr Q24H IV 09/07/25 13:00 09/08/25 06:21 29.063 MLS/HR Heparin Sodium/ Dextrose 250 ml @ 5 mls/hr Q24H IV 09/07/25 18:00 Cancel Enteral Nutritional Formula 240 ml TIDWM PO 09/08/25 12:00 09/09/25 08:00 240 ML Insulin Glargine 15 units HS SC 09/08/25 22:00 09/08/25 17:20 15 UNITS Insulin Human Regular IQ4HR SC 09/08/25 18:00 09/09/25 08:03 6 UNITS Dextrose 50 ml UD PRN IV 09/08/25 17:15 Diagnostic Test (Pha) 1 strip IQ4HR 09/08/25 20:00 09/09/25 11:45 1 STRIP Heparin Sodium/ Dextrose 250 ml @ 10 mls/hr Q24H IV 09/09/25 14:00 Examination General Appearance: Alert, Oriented X3, Cooperative, moderate distress HEENT: Atraumatic, PERRLA Lungs: Normal air movement, mild crackles in lower lung spangler Cardiovascular: Normal S1, Normal S2, Other (Loud systolic murmur) Abdomen: Normal bowel sounds, Soft, No tenderness Genitourinary: No Apparent Abnormalities (Mathews catheter) Musculoskeletal: Normal sensory function, Normal motor function Neuro: Normal speech Skin: Dry, Intact Psych/Mental Status: Mental status NL, Other (Withdrawn) Medications laboratory and microbiology Laboratory Tests 09/09/25 12:53 09/09/25 03:25 Test 09/09/25 03:25 Range/Units Serum Glucose 396 H 74-106 mg/dL Microbiology Date/Time Source Procedure Growth Status 09/06/25 22:01 Nose MRSA Screen - Final Complete 09/04/25 11:00 Blood Blood Culture - Final NO GROWTH AFTER 5 DAYS OF INCUBATION. Complete Labs and/or images reviewed: Labs reviewed by me, Image(s) reviewed by me Problem List/Assessment/Plan Problem List/Assessment/Plan acute hypoxic respiratory failure -acute on chronic systolic and diastolic heart failure with worsening ejection fraction -septic shock -COVID-19 -bilateral pneumonia,? Septic emboli etiology -history of endocarditis -coronary artery disease with previous stent placement -severe aortic stenosis -patient is legally blind -ESRD with hemodialysis -severe pulmonary vascular congestion -diabetes mellitus -DKA -NSTEMI,? Type 1 Acute anemia requiring blood transfusion Plan: -continue O2 supplementation to keep saturation greater than 92%. Currently on Oxymizer at 6 L/min. -cardiology consultation: Continue heparin drip per protocol -stop regular insulin sliding scale and glipizide. -on insulin drip. Transition to subQ upon stable Hemoglobin stable at 8 after blood transfusion. Monitor bleeding -continue antibiotic therapy with cefepime and vancomycin -PUD prophylaxis -HD per nephrology rec -continue to wean Gerald-Synephrine drip -patient unstable to transfer to [facility] Plan of care discussed with the patient Critical care time spent with patient discussing and formulating plan of care: 40 minutes. This does not include time spent performing procedures. Plan discussed with: Patient My Orders My Orders Orders - TRAVON GOEL MD Procedure Category Date Status Time Type And Screen BBK 09/09/25 In Process 11:52 Dietary Evaluation Review Comments: Reinforce CCHO-60 Renal Standard Diet Educate on dietary NA, fluid and glucose control Expected Outcomes/Goals: Controlled DM, with dietary control of CCHO and fluid restriction Date of Service: Sep 09, 2025 Billing Provider: TRAVON GOEL MD Common Visit Codes: 79516-QYP/[id number] SAME DATE (HIGH) TRAVON GOEL MD Sep 09, 2025 14:04
--- NOTE | 2025-09-09 17:38 | DVHPN2 ---
Consult Progress Note Subjective Other Systems: Patient now on 2 L nasal cannula Patient in sinus tachycardia with depressed T-waves on coyote hunter Patient denies any cardiac symptoms at time of assessment Objective vital signs Vital Sign Date Time Temp Pulse Resp B/P (MAP) Pulse Ox O2 Delivery O2 Flow Rate FiO2 09/09/25 17:00 100 17 147/78 (101) 100 09/09/25 16:00 97.9 97.9 09/09/25 16:00 Nasal Cannula* 2 28 Total Intake and Output 09/08/25 09/08/25 09/09/25 15:00 23:00 07:00 Intake Total 368.982 ml 760 ml 67 ml Output Total 70 ml Balance 368.982 ml 690 ml 67 ml medications Current Medications Medications Dose Ordered Sig/Rosa Route Start Time Stop Time Status Last Admin Dose Admin Levalbuterol HCl 0.625 mg Q6HR NEB 09/05/25 00:00 09/09/25 11:42 0.625 MG Norepinephrine Bitartrate 250 ml @ 3.75 mls/hr Q24H IV 09/04/25 19:30 09/07/25 15:37 3.75 MLS/HR Ondansetron HCl 4 mg Q4HP PRN IV 09/04/25 19:30 Acetaminophen 650 mg Q6HP PRN PO 09/04/25 19:30 09/07/25 03:08 650 MG Cefepime HCl 50 ml @ 12.5 mls/hr DAILY IV 09/05/25 10:00 09/09/25 11:25 12.5 MLS/HR Vancomycin HCl 0 ml @ 0 mls/hr PER PHARMACY IV 09/05/25 03:45 Labetalol HCl 10 mg Q4HP PRN IV 09/05/25 15:00 Dexamethasone Sodium Phosphate 4 mg DAILY IV 09/06/25 10:00 09/09/25 10:02 4 MG Lorazepam 0.5 mg Q6HP PRN IV 09/05/25 15:00 Pantoprazole Sodium 40 mg DAILY IV 09/06/25 10:00 09/09/25 10:02 40 MG Acetaminophen/ Hydrocodone Bitart 1 tab Q4HPRN PRN PO 09/07/25 10:30 09/09/25 08:11 1 TAB Phenylephrine HCl 80 mg/Sodium Chloride 250 ml @ 7.5 mls/hr Q24H IV 09/07/25 13:00 09/08/25 06:21 29.063 MLS/HR Heparin Sodium/ Dextrose 250 ml @ 5 mls/hr Q24H IV 09/07/25 18:00 Cancel Enteral Nutritional Formula 240 ml TIDWM PO 09/08/25 12:00 09/09/25 12:00 240 ML Insulin Glargine 15 units HS SC 09/08/25 22:00 09/08/25 17:20 15 UNITS Insulin Human Regular IQ4HR SC 09/08/25 18:00 09/09/25 16:15 6 UNITS Dextrose 50 ml UD PRN IV 09/08/25 17:15 Diagnostic Test (Pha) 1 strip IQ4HR 09/08/25 20:00 09/09/25 16:15 1 STRIP Heparin Sodium/ Dextrose 250 ml @ 10 mls/hr Q24H IV 09/09/25 14:00 09/09/25 14:03 10 MLS/HR Examination: GENERAL:Abnormal (Generalized weakness), LUNGS:Normal, CVS:Abnormal (Sinus tachycardia with T-wave inversion on monitor), NEURO:Normal laboratory and microbiology Laboratory Tests 09/09/25 12:53 09/09/25 03:25 Test 09/09/25 03:25 Range/Units Serum Glucose 396 H 74-106 mg/dL Problem List/Assessment/Plan Problem List/Assessment/Plan Acute on chronic decompensated HFrEF, NYHA class IV Acute hypoxic respiratory failure with multifocal pneumonia/COVID-[address]-elevation myocardial infarction, rule out progressive coronary artery disease Hx of cardiopulmonary arrest status post CPR with ROSC (06/2025) 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 Angeles): * Transthoracic echocardiogram (09/05/2025): LVEF 25% with entire anterior, apical, and distal half of IVS hypokinetic. Heavily calcified mitral/aortic leaflets. Critical aortic valve stenosis with KATARZYNA at 0.8 cm2, peak gradient at 71 mmHg, and mean gradient at 42 mmHg. * Transthoracic echocardiogram (06/03/2025): LVEF at 50% with normal RV function. Left atrial enlargement. Yyjdjxsf-gi-dcxznx mitral insufficiency. Stenosis and thickening of the aortic valve leaflets as well as diminished excursion. * Transesophageal echocardiogram (06/04/2025): LVEF about 55% with normal RV function. There appears to be a 2-3 mm vegetation in the inferior medial aspect of the base of the posterior mitral leaflet. Plan: Given significantly reduced EF from 50% to 25% with associated anteroapical hypokinesis and critical aortic valve stenosis recommendations are for a right and left cardiac catheterization with coronary angiogram with surgical backup preferably at [facility]. In the meantime, consider dual-antiplatelet therapy, lipid lowering agent with optimal LFTs (currently trending up), and heparin drip per pharmacy protocol. Patient now off of vasopressor support. We will initiate guideline directed medical therapy for CHF with stable blood pressures. Monitor ECG changes closely and notify accordingly. Monitor H&H closely. Transfuse with PRBC as needed. Stool occult positive, consider GI consultation for further workup. Further orders per clinical course. Thank you for allowing us to participate in this patient's care. Please call if you have any questions or concerns. Critical care time spent: 40 minutes. This medical document was created using an electronic medical record system with voice recognition software and computerized dictation system. Although this document has been carefully reviewed, there might still be some phonetic and typographical errors. Occasional wrong-word or ``sound-alike substitutions may have occurred due to the inherent limitations of voice recognition software. These areas are purely typographical due to imperfections of the software programs and do not reflect any compromise in the patient's medical care. Please read the chart carefully and recognize, using context, where these substitutions have occurred. Plan discussed with: Patient, Daughter Dietary Evaluation Review Comments: Reinforce CCHO-60 Renal Standard Diet Educate on dietary NA, fluid and glucose control Expected Outcomes/Goals: Controlled DM, with dietary control of CCHO and fluid restriction Date of Service: Sep 09, 2025 Billing Provider: TIANA ANDRADE Common Visit Codes: [id number] CARE 30-74 MIN TIANA ANDRADE Sep 09, 2025 17:38
[2025-09-09 20:22] LABS: INR 1.19 (0.9-1.15); Partial Thromboplastin Time 53.5 SEC (24.5-34.5); Prothrombin Time 12.4 sec (9.3-11.8)
[2025-09-09] MEDS: EPOETIN ALFA-EPBX 10,000 UNIT/1ML VIAL SC ONE (20:41)
--- NOTE | 2025-09-09 22:05 | DVHINCON2 ---
Date of service: Sep 09, [address] Ajith Villaseñor Reason for Consultation Acute hypoxic respiratory failure, multifocal pneumonia/COVID-19. History of Present Illness A 75-year-old woman with past medical history including end-stage renal disease, OR, diabetes mellitus, CHF, and anemia who presented to ED on 09/04/25 for evaluation of shortness of breath. Patient has a history of end-stage renal disease, dialysis dependent, and also legally blind. She states that 3 days ago she had a fall in the restroom, where she fell and hit her chest against the toilet. Pt complained of bilateral rib pain and unable to take deep breaths. She also complained of productive cough with yellow phlegm and chills. No chest pain. Patient was admitted for further care. Pulmonary consultation is requested for evaluation and management due to acute hypoxic respiratory failure, multifocal pneumonia/COVID-19. Family History Noncontributory Review of Systems: 14-point review of systems negative unless otherwise noted above. Past Medical History End-stage renal disease, OR, diabetes mellitus, CHF, anemia, legally blind Past Surgical History PTCA, dialysis access Medications: Reviewed. Allergies: No known drug allergies. Family History: No family history of premature CAD. No family history of lung disorders. Social History: Nonsmoker. No alcohol or illicit drug use. Family History: FH: congestive heart failure G8 MOTHER Allergies: Coded Allergies: NO KNOWN ALLERGIES (Unverified , 08/26/19) Home Meds Active Scripts Furosemide (Lasix) 20 Mg Tb, 1 TAB PO BID for 30 Days, #60 TAB 3 Refills Prov:JEREMIAS JORDAN MD 09/11/25 Pantoprazole Sodium Sesquihydr (Protonix) 40 Mg Tab, 40 MG PO DAILY for 30 Days, #30 TAB 2 Refills Prov:JEREMIAS JORDAN MD 09/11/25 Reported Medications Calcitriol (Calcitriol) 0.25 Mcg Cap, 1 CAP PO DAILY for 100 Days, #100 09/06/25 Calcium Acetate (Phosphate Bin (Calcium Acetate) 667 Mg Cap, 1 CAP PO TID for 30 Days, #90 09/06/25 Multiple Vitamins W/ Minerals (Multivitamin) 1 Tab Tab, 1 TAB PO DAILY, TAB 03/27/25 Aspirin (Aspirin) 81 Mg Chw, 81 MG PO DAILY, TAB.CHEW 03/27/25 Furosemide (Furosemide) 20 Mg Tab, 1 TAB PO BID 03/27/25 Hydralazine HCl (Hydralazine HCl) 25 Mg Tab, 1 TAB PO TID for 100 Days, #300 03/27/25 1, 25 Dihydroxycholecalciferol (ROCALTROL CAPSULE) 0.25 Mcg Cp, 1 CAP PO DAILY 03/27/25 Hydrocodone-Acetaminophen (Hydrocodone/Acetaminophen 5-325 mg) 1 Tab Tab, 1 TAB PO BIDPRN PRN 03/27/25 Mirtazapine (Mirtazapine Oral Disintegrating Tablet) 15 Mg Tab, 1 TAB PO DAILY 03/27/25 Carvedilol (Carvedilol) 12.5 Mg Tab, 1 TAB PO BID 03/27/25 Sitagliptin (Sitagliptin) 25 Mg Tab, 1 TAB PO DAILY for 90 Days, #90 03/27/25 Amlodipine Besylate (Amlodipine Besylate) 5 Mg Tab, 1 TAB PO DAILY 03/27/25 Glipizide (Glipizide) 5 Mg Tab, 1 TAB PO DAILY for 100 Days, #100 08/26/19 Atorvastatin Calcium (ATORVASTATIN CALCIUM) 40 Mg Tab, 1 TAB PO DAILY for 100 Days, #100 08/26/19 Cilostazol (Cilostazol) 100 Mg Tab, 1 TAB PO BID for 100 Days, #200 08/26/19 Discontinued Reported Medications Famotidine (Acid Spray Gun Striper) 10 Mg Tab, 10 MG PO DAILY 03/27/25 Current Medications Current Medications Medications (Trade) Dose Ordered Sig/Rosa Route PRN Reason Start Time Stop Time Status Last Admin Glipizide (Glucotrol Tablet) 5 mg QAM PO 09/09/25 07:00 09/08/25 08:57 DC Insulin Human Regular (InsuLIN R) HS SC 09/08/25 22:00 09/08/25 08:57 DC Insulin Glargine (Lantus) 15 units HS SC 09/08/25 22:00 09/08/25 17:20 Heparin Sodium/ Dextrose 250 ml @ 10 mls/hr Q24H IV 09/08/25 22:30 09/09/25 05:34 DC 09/08/25 22:36 Heparin Sodium/ Dextrose 250 ml @ 7 mls/hr Q24H IV 09/09/25 06:45 09/09/25 13:49 DC 09/09/25 06:50 Heparin Sodium/ Dextrose 250 ml @ 10 mls/hr Q24H IV 09/09/25 14:00 09/09/25 14:03 Vital Signs Vital Signs Date Time Temp Pulse Resp B/P (MAP) Pulse Ox O2 Delivery O2 Flow Rate FiO2 09/09/25 18:28 103 20 100 09/09/25 18:22 Nasal Cannula* 2 28 09/09/25 18:00 151/90 (110) 09/09/25 16:00 97.9 97.9 Physical Exam Gen.: Patient lying in bed in no apparent distress. On supplemental oxygen. Head: Normocephalic, atraumatic. Eyes: EOMI/PERRLA. Ears: Normal hearing. Normal anatomy. Neck/trachea: Trachea midline, supple. Nose: Normal external anatomy. Mouth: Moist mucous membranes. Chest: Decreased air entry bilaterally. No wheezing or rhonchi. Cardiovascular: Positive S1, positive S2. Regular rate and rhythm. Abdomen: Positive bowel sounds in all 4 quadrants. Soft, non-tender, non- distended. : Deferred. Rectal: Deferred. Skin: Warm, dry. Intact. Extremities: 2+ radial pulses bilaterally. No lower extremity edema. Neuro: Awake, alert, oriented x3. No gross motor or sensory deficits. Cranial nerves II through XII intact. Gait not assessed. Labs/Diagnostic Data Labs Test 09/09/25 20:24 09/09/25 19:54 09/09/25 12:53 09/09/25 04:30 Range/Units POC Glucose 140 H 70-106 mg/dl Prothrombin Time 12.4 H 9.3-11.8 sec Prothrombin Time INR 1.19 H 0.9-1.15 Activated Partial Thromboplast Time 53.5 H 24.5-34.5 SEC White Blood Count 13.1 H 4.4-10.8 10^3/uL Red Blood Count 2.90 L 4.0-5.20 10^6/uL Hemoglobin 8.8 #L 12.2-16.2 g/dL Hematocrit 26.4 #L 36.0-46.0 % Mean Corpuscular Volume 91.2 80.0-100.0 fL Mean Corpuscular Hemoglobin 30.2 28.0-32.0 pg Mean Corpuscular Hemoglobin Concent 33.1 32.0-36.0 g/dL Red Cell Distribution Width 18.0 H 11.8-14.3 % Platelet Count 222 140-450 10^3/uL Mean Platelet Volume 9.2 6.9-10.8 fL Neutrophils (%) (Auto) 91.3 H 37.0-80.0 % Lymphocytes (%) (Auto) 4.1 L 10.0-50.0 % Monocytes (%) (Auto) 4.5 0.0-12.0 % Eosinophils (%) (Auto) 0.0 0.0-7.0 % Basophils (%) (Auto) 0.1 0.0-2.0 % Neutrophils # (Auto) 12.0 H 1.6-8.6 10 ^3/uL Lymphocytes # (Auto) 0.5 0.4-5.4 10 ^3/uL Monocytes # (Auto) 0.6 0-1.3 10 ^3/uL Eosinophils # (Auto) 0 0-0.8 10 ^3/uL Basophils # (Auto) 0 0-0.2 10 ^3/uL Nucleated Red Blood Cells 3.4 % Stool Occult Blood Positive Negative Stool Occult Blood Sample #3 Negative Test 09/09/25 03:25 09/08/25 07:33 09/07/25 09:58 09/06/25 06:41 Range/Units Sodium Level 136 136-145 mmol/L Potassium Level 3.6 3.5-5.1 mmol/L Chloride Level 98 98-107 mmol/L Carbon Dioxide Level 23 20-31 mmol/L Anion Gap 15 5-15 Blood Urea Nitrogen 67 #H 9-23 mg/dL Creatinine 4.71 H 0.550-1.02 mg/dL Glomerular Filtration Rate Calc 9 >90 mL/min BUN/Creatinine Ratio 14.2 10.0-20.0 Serum Glucose 396 H 74-106 mg/dL Calcium Level 7.3 L 8.7-10.4 mg/dL Total Bilirubin 0.5 0.2-1.0 mg/dL Aspartate Amino Transferase (AST) 260 H 13-40 U/L Alanine Aminotransferase (ALT) 310 H 7-40 U/L Alkaline Phosphatase 117 H 46-116 U/L Total Protein 6.0 5.7-8.2 g/dL Albumin 3.5 3.2-4.8 g/dL Random Vancomycin Level 27.3 H 5-10 ug/mL Beta-Hydroxybutyric Acid 4.178 H < 0.4 mmol/L Troponin I High Sensitivity 833 *H </=34 ng/L B-Type Natriuretic Peptide 3788.88 0-100 pg/mL Blood Gas Specimen Type Arterial Blood Gas Sample Site Left radial Blood Gas Patient Temperature 37.0 Arterial Blood Date Drawn [id number] Arterial Blood pH 7.347 L 7.350-7.450 Arterial Blood Partial Pressure CO2 29.9 L 32.0-45.0 mmHg Arterial Blood Partial Pressure O2 63.1 L 83.0-108.0 mmHg Arterial Blood HCO3 16.0 L 21.0-28.0 mmol/L Arterial Blood Oxygen Saturation 88.1 L 94.0-98.0 % Arterial Blood Base Excess -8.7 L -2.0-3.0 mmol/L Arterial Blood Oxyhemoglobin 87.0 L 94.0-98.0 % Arterial Blood Carboxyhemoglobin 1.1 0.5-1.5 % Arterial Blood Methemoglobin 0.2 0.0-1.5 % Dagoberto Test Positive Blood Gas Total Hemoglobin 8.40 L 12.0-16.0 g/dL Blood Gas Set Respiration Rate 12.0 Blood Gas Modality Mask - bipap FiO2 % 45.0 Blood Gas EPAP 5 Blood Gas IPAP 16 Test 09/05/25 15:00 09/05/25 10:15 09/05/25 10:12 09/04/25 23:35 Range/Units Blood Gas Spontaneous Rate 38 Phosphorus Level 6.7 H 2.4-5.1 mg/dL Vitamin D 25-Hydroxy 37.3 30.0-100 ng/mL Parathyroid Hormone (Intact) 351.3 H 18.4-80.1 pg/mL Hepatitis B Surface Antigen Negative Negative Influenza Type A Antigen Negative Negative Influenza Type B Antigen Negative Negative SARS-CoV-2 Antigen (Rapid) Positive NEGATIVE D-Dimer, Quantitative 6.35 H 0.0-0.49 mg/L FEU Test 09/04/25 13:46 Range/Units Lactic Acid Level 1.3 0.4-2.0 mmol/L Microbiology Date/Time Source Procedure Growth Status 09/06/25 22:01 Nose MRSA Screen - Final Complete 09/04/25 11:00 Blood Blood Culture - Final NO GROWTH AFTER 5 DAYS OF INCUBATION. Complete Assessment Impression: Acute hypoxic respiratory failure Dependence on supplemental oxygen Acute on chronic systolic and diastolic heart failure with worsening ejection fraction Septic shock Multifocal pneumonia/COVID-[address]-elevation myocardial infarction ESRD with hemodialysis Severe pulmonary vascular congestion Coronary artery disease status post PTCA with multiple MORGAN. Acute anemia requiring blood transfusion Legal blindness Plan: Supplemental oxygen Titrate to keep O2 sats above 92%. On heparin drip Off pressors since 09/08/25, hemodynamically stable. Continue bronchodilators Continue antibiotics Continue Decadron Blood pressure control Hemodialysis today, filtered. Nephrology recs appreciated. Protonix for GI ppx Accu-Cheks, ISS. Hemodialysis per Nephrology Monitor renal function. Monitor electrolytes. Supplement as necessary. Monitor ins and outs. GI/DVT prophylaxis. Prognosis: Poor given patient's multiple co-morbidities. Condition: Critical Rest of plan per hospitalist and other consultants. A total of 35 minutes of critical care time was spent reviewing the patient record, examining the patient, making a diagnostic and therapeutic plan, discussing this plan with the medical personnel, following up on diagnostic studies and following the patient for clinical stability excluding any and all procedures. At least 50% of this time was spent in direct, [id number] co ntact. Thank you, Dr. Villaseñor, for allowing me to participate in this patient's care. Further recommendations will depend on the patient's clinical course. Please do not hesitate to contact me if you have any questions or concerns. This medical document was created using an electronic medical record system with [employer] dictation system. Although these documentations are being carefully reviewed, there may still be some phonetic and typographical changes. The errors are purely typographical, due to imperfection on the software program, and do not reflect any compromise in the patient's medical care. Plan discussed with: Patient, Other (ELISA Mcpherson/) Visit Coding Pulmonary Billing Provider: MANOLO HERNDON MD Date of Service if different f: Sep 09, 2025 Common Visit Codes: [id number] CARE 30-74 MIN MANOLO HERNDON MD Sep 09, 2025 22:05
--- NOTE | 2025-09-09 23:48 | DVHPN2 ---
Consult Progress Note Subjective Other Systems: Patient was seen and evaluated in follow up in the ICU. Patient now on 2 L nasal cannula. Patient in sinus tachycardia with depressed T-waves on court monitor . Patient denies any cardiac symptoms at time of assessment. Patient is pending transfer to [place]. WBC 13.1, HGB 8.8, HCT 26.4, BUN 67, TYPEWRITER MECHANIC 4.71, GLUC 211, AST 260, ALT 310. Objective vital signs Vital Sign Date Time Temp Pulse Resp B/P (MAP) Pulse Ox O2 Delivery O2 Flow Rate FiO2 09/09/25 18:28 103 20 100 09/09/25 18:22 Nasal Cannula* 2 28 09/09/25 18:00 151/90 (110) 09/09/25 16:00 97.9 97.9 Total Intake and Output 09/08/25 09/08/25 09/09/25 15:00 23:00 07:00 Intake Total 368.982 ml 760 ml 67 ml Output Total 70 ml Balance 368.982 ml 690 ml 67 ml medications Current Medications Medications Dose Ordered Sig/Rosa Route Start Time Stop Time Status Last Admin Dose Admin Levalbuterol HCl 0.625 mg Q6HR NEB 09/05/25 00:00 09/09/25 18:22 0.625 MG Norepinephrine Bitartrate 250 ml @ 3.75 mls/hr Q24H IV 09/04/25 19:30 09/07/25 15:37 3.75 MLS/HR Ondansetron HCl 4 mg Q4HP PRN IV 09/04/25 19:30 Acetaminophen 650 mg Q6HP PRN PO 09/04/25 19:30 09/07/25 03:08 650 MG Cefepime HCl 50 ml @ 12.5 mls/hr DAILY IV 09/05/25 10:00 09/09/25 11:25 12.5 MLS/HR Vancomycin HCl 0 ml @ 0 mls/hr PER PHARMACY IV 09/05/25 03:45 Labetalol HCl 10 mg Q4HP PRN IV 09/05/25 15:00 Dexamethasone Sodium Phosphate 4 mg DAILY IV 09/06/25 10:00 09/09/25 10:02 4 MG Lorazepam 0.5 mg Q6HP PRN IV 09/05/25 15:00 Pantoprazole Sodium 40 mg DAILY IV 09/06/25 10:00 09/09/25 10:02 40 MG Acetaminophen/ Hydrocodone Bitart 1 tab Q4HPRN PRN PO 09/07/25 10:30 09/09/25 08:11 1 TAB Phenylephrine HCl 80 mg/Sodium Chloride 250 ml @ 7.5 mls/hr Q24H IV 09/07/25 13:00 09/08/25 06:21 29.063 MLS/HR Heparin Sodium/ Dextrose 250 ml @ 5 mls/hr Q24H IV 09/07/25 18:00 Cancel Enteral Nutritional Formula 240 ml TIDWM PO 09/08/25 12:00 09/09/25 12:00 240 ML Insulin Glargine 15 units HS SC 09/08/25 22:00 09/08/25 17:20 15 UNITS Insulin Human Regular IQ4HR SC 09/08/25 18:00 09/09/25 16:15 6 UNITS Dextrose 50 ml UD PRN IV 09/08/25 17:15 Diagnostic Test (Pha) 1 strip IQ4HR 09/08/25 20:00 09/09/25 16:15 1 STRIP Heparin Sodium/ Dextrose 250 ml @ 10 mls/hr Q24H IV 09/09/25 14:00 09/09/25 14:03 10 MLS/HR Examination: GENERAL:Abnormal (Generalized weakness), HEENT:Normal, NECK:Normal, LUNGS:Normal, CVS:Abnormal (Sinus tachycardia with T-wave inversion on monitor), SKIN:Normal, NEURO:Normal laboratory and microbiology Laboratory Tests 09/09/25 12:53 09/09/25 03:25 Test 09/09/25 03:25 Range/Units Serum Glucose 396 H 74-106 mg/dL Problem List/Assessment/Plan Problem List/Assessment/Plan Problem List Acute on chronic decompensated HFrEF, NYHA class IV. Acute hypoxic respiratory failure with multifocal pneumonia/COVID-19. Non ST-elevation myocardial infarction, rule out progressive coronary artery disease. Hx of cardiopulmonary arrest status post CPR with ROSC (06/2025). 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 Coronary artery disease status post PTCA with multiple MORGAN. Mitral valve insufficiency, severe degree. Aortic valve stenosis, critical. Acute on chronic anemia status post PRBC transfusion. Positive fecal occult. Type 2 diabetes mellitus. ESRD on HD. Plan/Recommendation Continued all current supportive medical care. Patient has been seen by Kylie Arriaza NP on my behalf, her/him and I discussed the plan with the patient. Transthoracic echocardiogram (09/05/2025): LVEF 25% with entire anterior, apical, and distal half of IVS hypokinetic. Heavily calcified mitral/aortic leaflets. Critical aortic valve stenosis with KATARZYNA at 0.8 cm2, peak gradient at 71 mmHg, and mean gradient at 42 mmHg. Transthoracic echocardiogram (06/03/2025): LVEF at 50% with normal RV function. Left atrial enlargement. [id number] mitral insufficiency. Stenosis and thickening of the aortic valve leaflets as well as diminished excursion. Transesophageal echocardiogram (06/04/2025): LVEF about 55% with normal RV function. There appears to be a 2-3 mm vegetation in the inferior medial aspect of the base of the posterior mitral leaflet. Given significantly reduced EF from 50% to 25% with associated anteroapical hypokinesis and critical aortic valve stenosis recommendations are for a right and left cardiac catheterization with coronary angiogram with surgical backup preferably at [facility]. In the meantime, consider dual-antiplatelet therapy, lipid lowering agent with optimal LFTs (currently trending up), and heparin drip per pharmacy protocol. Patient now off of vasopressor support. We will initiate guideline directed medical therapy for CHF with stable blood pressures. Monitor ECG changes closely and notify accordingly. Monitor H&H closely. Transfuse with PRBC as needed. Stool occult positive, consider GI consultation for further workup. Further orders per clinical course. Additional plan as per the hospital course. Plan discussed with: Patient Dietary Evaluation Review Comments: Reinforce CCHO-60 Renal Standard Diet Educate on dietary NA, fluid and glucose control Expected Outcomes/Goals: Controlled DM, with dietary control of CCHO and fluid restriction Date of Service: Sep 09, 2025 Billing Provider: ENID RODGERS MD Cardiology Common Codes: [id number] CARE 30-74 MIN ENID RODGERS MD Sep 09, 2025 20:31
[2025-09-10] VITALS (47 sets, daily range): BP systolic 126–168; BP diastolic 69–93; PULSE 69–109; RESP 12–35; TEMP 98–98.2; O2SAT 92–100
[2025-09-10 01:52] LABS: INR 1.23 (0.9-1.15); Prothrombin Time 12.8 sec (9.3-11.8)
[2025-09-10 01:58] LABS: Partial Thromboplastin Time 92.0 SEC (24.5-34.5)
[2025-09-10 05:07] LABS: Hematocrit 24.6 % (36.0-46.0); Hemoglobin 8.5 g/dL (12.2-16.2); Mean Corpuscular Hemoglobin 32.6 pg (28.0-32.0); Mean Corpuscular Volume 94.4 fL (80.0-100.0); Nucleated Red Blood Cells % 2.6 %
[2025-09-10 05:10] LABS: Alkaline Phosphatase 91 U/L (46-116); Carbon Dioxide 27 mmol/L (20-31); Magnesium 1.9 mg/dL (1.6-2.6); Potassium 3.8 mmol/L (3.5-5.1)
[2025-09-10 05:11] LABS: Albumin 3.3 g/dL (3.2-4.8); Anion Gap 11 (5-15); BUN/Creatinine Ratio 12.6 (10.0-20.0); Bilirubin, Total 0.7 mg/dL (0.2-1.0)
[2025-09-10 05:17] LABS: Alanine Aminotransferase 286 U/L (7-40); Blood Urea Nitrogen 34 mg/dL (9-23); Calcium 7.7 mg/dL (8.7-10.4); Chloride 96 mmol/L (98-107); Glucose 215 mg/dL (74-106); Sodium 134 mmol/L (136-145); Total Protein 5.6 g/dL (5.7-8.2)
[2025-09-10] MEDS: HEPARIN DRIP/D5W 100UNITS/ML 250 ML IV SCH (05:51)
--- NOTE | 2025-09-10 08:53 | MEDREC ---
[facility] ASP Intervention Section I [facility] ASP Intervention: Review courses of therapy (PLEASE CONSIDER D/C VANCOMYCIN - NARES SCREENING FOR MRSA HAS A HIGH SPECIFICITY AND NEGATIVE PREDICTIVE VALUE FOR RULING OUT MRSA PNEUMONIA, PARTICULARLY IN CASES OF CAP BASED ON THE NEGATIVE PREDICITVE VALUE AND THE MRSA NARES NEGATIVE - BLOOD CULTURE WITH NO GROWTH) JOSÉ ANTONIO MEYER PHARMACIST Sep 10, 2025 08:53
[2025-09-10 10:40] LABS: INR 1.2 (0.9-1.15); Prothrombin Time 12.5 sec (9.3-11.8)
--- NOTE | 2025-09-10 10:42 | DVHPN2 ---
Progress Note Date Seen: Sep 10, 2025 Has the PT tested + for MRSA If YES, has PT been informed?: No Medical Necessity Reason Pt with a Central, PICC or Fol: No Subjective Patient reports: No new complaints Objective vital signs Vital Sign Date Time Temp Pulse Resp B/P (MAP) Pulse Ox O2 Delivery O2 Flow Rate FiO2 09/10/25 09:00 105 21 146/91 (109) 99 09/10/25 08:00 Nasal Cannula* 2 28 09/10/25 08:00 98.2 98.2 Total Intake and Output 09/09/25 09/09/25 09/10/25 15:00 23:00 07:00 Intake Total 109.0 ml 770 ml 148 ml Output Total 150 ml 350 ml Balance 109.0 ml 620 ml -202 ml medications Current Medications Medications Dose Ordered Sig/Rosa Route Start Time Stop Time Status Last Admin Dose Admin Levalbuterol HCl 0.625 mg Q6HR NEB 09/05/25 00:00 09/10/25 06:13 0.625 MG Norepinephrine Bitartrate 250 ml @ 3.75 mls/hr Q24H IV 09/04/25 19:30 09/07/25 15:37 3.75 MLS/HR Ondansetron HCl 4 mg Q4HP PRN IV 09/04/25 19:30 Acetaminophen 650 mg Q6HP PRN PO 09/04/25 19:30 09/07/25 03:08 650 MG Cefepime HCl 50 ml @ 12.5 mls/hr DAILY IV 09/05/25 10:00 09/10/25 09:59 12.5 MLS/HR Vancomycin HCl 0 ml @ 0 mls/hr PER PHARMACY IV 09/05/25 03:45 Labetalol HCl 10 mg Q4HP PRN IV 09/05/25 15:00 Dexamethasone Sodium Phosphate 4 mg DAILY IV 09/06/25 10:00 09/10/25 09:59 4 MG Lorazepam 0.5 mg Q6HP PRN IV 09/05/25 15:00 Pantoprazole Sodium 40 mg DAILY IV 09/06/25 10:00 09/10/25 09:59 40 MG Acetaminophen/ Hydrocodone Bitart 1 tab Q4HPRN PRN PO 09/07/25 10:30 09/09/25 20:38 1 TAB Phenylephrine HCl 80 mg/Sodium Chloride 250 ml @ 7.5 mls/hr Q24H IV 09/07/25 13:00 09/08/25 06:21 29.063 MLS/HR Heparin Sodium/ Dextrose 250 ml @ 5 mls/hr Q24H IV 09/07/25 18:00 Cancel Enteral Nutritional Formula 240 ml TIDWM PO 09/08/25 12:00 09/10/25 09:27 240 ML Insulin Glargine 15 units HS SC 09/08/25 22:00 09/09/25 22:40 15 UNITS Insulin Human Regular IQ4HR SC 09/08/25 18:00 09/10/25 07:43 6 UNITS Dextrose 50 ml UD PRN IV 09/08/25 17:15 Diagnostic Test (Pha) 1 strip IQ4HR 09/08/25 20:00 09/10/25 07:43 1 STRIP Heparin Sodium/ Dextrose 250 ml @ 7 mls/hr Q24H IV 09/10/25 02:45 09/10/25 05:51 7 MLS/HR Examination General Appearance: Alert, Oriented X3, Cooperative, moderate distress HEENT: Atraumatic, PERRLA. blind both eye Lungs: Normal air movement, mild crackles in lower lung spangler Cardiovascular: Normal S1, Normal S2, Other (Loud systolic murmur) Abdomen: Normal bowel sounds, Soft, No tenderness Genitourinary: No Apparent Abnormalities (Mathews catheter) Musculoskeletal: Normal sensory function, Normal motor function Neuro: Normal speech Skin: Dry, Intact Psych/Mental Status: Mental status NL laboratory and microbiology Laboratory Tests 09/10/25 03:30 Test 09/10/25 03:30 Range/Units Serum Glucose 215 H 74-106 mg/dL Microbiology Date/Time Source Procedure Growth Status 09/06/25 22:01 Nose MRSA Screen - Final Complete 09/04/25 11:00 Blood Blood Culture - Final NO GROWTH AFTER 5 DAYS OF INCUBATION. Complete Labs and/or images reviewed: Labs reviewed by me, Image(s) reviewed by me Problem List/Assessment/Plan Problem List/Assessment/Plan acute hypoxic respiratory failure -acute on chronic systolic and diastolic heart failure with worsening ejection fraction -septic shock -COVID-19 -bilateral pneumonia,? Septic emboli etiology -history of endocarditis -coronary artery disease with previous stent placement -severe aortic stenosis -patient is legally blind -ESRD with hemodialysis -severe pulmonary vascular congestion -diabetes mellitus -DKA -NSTEMI,? Type 1 Acute anemia requiring blood transfusion Plan: -patient is weaned off oxygen. -Off pressors 09/09 -Off insulin ggt -Lantus 15U qHS -Insulin SS moderate . FS 140-180 -cardiology consultation: Continue heparin drip per protocol -GDMT for HFrEF per cardiology -Hemoglobin stable at 8 after blood transfusion 09/09 -Positive occult blood. GI consult. per family, no afshan on 09/10 -continue antibiotic therapy with cefepime and vancomycin -PUD prophylaxis -HD per nephrology rec -patient unstable to transfer to [facility] at this time. -Transfer to telemetry if cleared by cardiology -When stable, consult CM to transfer patient to [place] for cardiac cath eval for the drop of EF from 50 to 25% from May to now. Critical care time spent with patient discussing and formulating plan of care: 40 minutes. This does not include time spent performing procedures. Plan discussed with: Patient, Other (son in law) My Orders My Orders Orders - TRAVON GOEL MD Procedure Category Date Status Time Type And Screen BBK 09/09/25 In Process 11:52 Comprehensive LAB 09/11/25 Verified Metabolic Panel 05:00 Comprehensive LAB 09/12/25 Verified Metabolic Panel 05:00 Comprehensive LAB 09/13/25 Verified Metabolic Panel 05:00 Comprehensive LAB 09/14/25 Verified Metabolic Panel 05:00 Complete Blood Count LAB 09/11/25 Verified 05:00 Complete Blood Count LAB 09/12/25 Verified 05:00 Complete Blood Count LAB 09/13/25 Verified 05:00 Complete Blood Count LAB 09/14/25 Verified 05:00 Magnesium LAB 09/11/25 Verified 05:00 Magnesium LAB 09/12/25 Verified 05:00 Magnesium LAB 09/13/25 Verified 05:00 Magnesium LAB 09/14/25 Verified 05:00 Communication Order ORDERS 09/09/25 Transmitted 16:19 * [facility] Tester CONS 09/10/25 Verified 10:38 Dietary Evaluation Review Comments: Reinforce CCHO-60 Renal Standard Diet Educate on dietary NA, fluid and glucose control Expected Outcomes/Goals: Controlled DM, with dietary control of CCHO and fluid restriction Date of Service: Sep 10, 2025 Billing Provider: TRAVON GOEL MD Common Visit Codes: [id number] SAME DATE (HIGH) TRAVON GOEL MD Sep 10, 2025 10:42
[2025-09-10 10:43] LABS: Partial Thromboplastin Time 72.3 SEC (24.5-34.5)
--- NOTE | 2025-09-10 12:31 | DVHPN2 ---
Progress Note - Dictate Date Seen: Sep 10, 2025 Has the PT tested + for MRSA If YES, has PT been informed?: No Medical Necessity Reason Pt with a Central, PICC or Fol: No Subjective Very weak vital signs Vital Sign Date Time Temp Pulse Resp B/P (MAP) Pulse Ox O2 Delivery O2 Flow Rate FiO2 09/10/25 12:26 105 16 99 09/10/25 12:19 Nasal Cannula 2.0 09/10/25 12:19 28 09/10/25 12:01 98.2 168/69 (102) 98.2 Total Intake and Output 09/09/25 09/09/25 09/10/25 15:00 23:00 07:00 Intake Total 109.0 ml 770 ml 148 ml Output Total 150 ml 350 ml Balance 109.0 ml 620 ml -202 ml medications Current Medications Medications Dose Ordered Sig/Rosa Route Start Time Stop Time Status Last Admin Dose Admin Levalbuterol HCl 0.625 mg Q6HR NEB 09/05/25 00:00 09/10/25 12:19 0.625 MG Norepinephrine Bitartrate 250 ml @ 3.75 mls/hr Q24H IV 09/04/25 19:30 09/07/25 15:37 3.75 MLS/HR Ondansetron HCl 4 mg Q4HP PRN IV 09/04/25 19:30 Acetaminophen 650 mg Q6HP PRN PO 09/04/25 19:30 09/07/25 03:08 650 MG Cefepime HCl 50 ml @ 12.5 mls/hr DAILY IV 09/05/25 10:00 09/10/25 09:59 12.5 MLS/HR Vancomycin HCl 0 ml @ 0 mls/hr PER PHARMACY IV 09/05/25 03:45 Labetalol HCl 10 mg Q4HP PRN IV 09/05/25 15:00 Dexamethasone Sodium Phosphate 4 mg DAILY IV 09/06/25 10:00 09/10/25 09:59 4 MG Lorazepam 0.5 mg Q6HP PRN IV 09/05/25 15:00 Pantoprazole Sodium 40 mg DAILY IV 09/06/25 10:00 09/10/25 09:59 40 MG Acetaminophen/ Hydrocodone Bitart 1 tab Q4HPRN PRN PO 09/07/25 10:30 09/09/25 20:38 1 TAB Phenylephrine HCl 80 mg/Sodium Chloride 250 ml @ 7.5 mls/hr Q24H IV 09/07/25 13:00 09/08/25 06:21 29.063 MLS/HR Heparin Sodium/ Dextrose 250 ml @ 5 mls/hr Q24H IV 09/07/25 18:00 Cancel Enteral Nutritional Formula 240 ml TIDWM PO 09/08/25 12:00 09/10/25 12:11 240 ML Insulin Glargine 15 units HS SC 09/08/25 22:00 09/09/25 22:40 15 UNITS Insulin Human Regular IQ4HR SC 09/08/25 18:00 09/10/25 12:12 9 UNITS Dextrose 50 ml UD PRN IV 09/08/25 17:15 Diagnostic Test (Pha) 1 strip IQ4HR 09/08/25 20:00 09/10/25 12:12 1 STRIP Heparin Sodium/ Dextrose 250 ml @ 7 mls/hr Q24H IV 09/10/25 02:45 09/10/25 05:51 7 MLS/HR objective NAD Lungs: bilateral rales CV: irregular rhythm, II/ CLARISSA, no pericardial rub Abdomen: mildly distended, froilan ascites Trace leg edema Neuro: non focal laboratory and microbiology Laboratory Tests 09/10/25 03:30 Test 09/10/25 03:30 Range/Units Serum Glucose 215 H 74-106 mg/dL Problem List 1. ESRD 2. COVID infection 3. Juswaait-ol-upsvlv mitral regurgitation 4. Aortic stenosis 5. NSTEMI 6. s/p fall/rib pain 7. DM2 8. H/O CHF 9. Severe anemia, s/p blood transfusion 10. Sepsis has resolved, she is off pressor support Plan: HD on TTS schedule or as needed Consider dc heparin drip Monitor Hb Supportive care for COVID infection Strict Is and Os BMP in AM Dietary Evaluation Review Comments: Reinforce CCHO-60 Renal Standard Diet Educate on dietary NA, fluid and glucose control Expected Outcomes/Goals: Controlled DM, with dietary control of CCHO and fluid restriction Plan discussed with: Patient GARRETT CODY MD Sep 10, 2025 12:31
[2025-09-10] MEDS: VANCOMYCIN 500mg/100mL 100 ML IV ONE (13:14)
--- NOTE | 2025-09-10 13:54 | DVHINCON2 ---
Date of service: Sep 10, 2025 History of Present Illness 75 y/o F pt with PMH of CHF, valvular disease, ESRD on HD was admitted with COVID positive, elevated troponin, acute resp failure. GI team consulted for an emia and positive FOBT. Family bedside. Per them, denies any GIB/abd pain/N/V. She had chronic anemia, prior PRBC transfusions x2 and on procrit shots, stopped since HD in May. Never had EGD/colonoscopy. Per RN, had brown colored stools Past Medical History Reviewed Past Surgical History Reviewed Family History: FH: congestive heart failure G8 MOTHER Allergies: Coded Allergies: NO KNOWN ALLERGIES (Unverified , 08/26/19) Home Meds Reported Medications Calcitriol (Calcitriol) 0.25 Mcg Cap, 1 CAP PO DAILY for 100 Days, #100 09/06/25 Calcium Acetate (Phosphate Bin (Calcium Acetate) 667 Mg Cap, 1 CAP PO TID for 30 Days, #90 09/06/25 Multiple Vitamins W/ Minerals (Multivitamin) 1 Tab Tab, 1 TAB PO DAILY, TAB 03/27/25 Aspirin (Aspirin) 81 Mg Chw, 81 MG PO DAILY, TAB.CHEW 03/27/25 Famotidine (Acid Distribution Systems Serviceperson) 10 Mg Tab, 10 MG PO DAILY 03/27/25 Furosemide (Furosemide) 20 Mg Tab, 1 TAB PO BID 03/27/25 Hydralazine HCl (Hydralazine HCl) 25 Mg Tab, 1 TAB PO TID for 100 Days, #300 03/27/25 1, 25 Dihydroxycholecalciferol (ROCALTROL CAPSULE) 0.25 Mcg Cp, 1 CAP PO DAILY 03/27/25 Hydrocodone-Acetaminophen (Hydrocodone/Acetaminophen 5-325 mg) 1 Tab Tab, 1 TAB PO BIDPRN PRN 03/27/25 Mirtazapine (Mirtazapine Oral Disintegrating Tablet) 15 Mg Tab, 1 TAB PO DAILY 03/27/25 Carvedilol (Carvedilol) 12.5 Mg Tab, 1 TAB PO BID 03/27/25 Sitagliptin (Sitagliptin) 25 Mg Tab, 1 TAB PO DAILY for 90 Days, #90 03/27/25 Amlodipine Besylate (Amlodipine Besylate) 5 Mg Tab, 1 TAB PO DAILY 03/27/25 Glipizide (Glipizide) 5 Mg Tab, 1 TAB PO DAILY for 100 Days, #100 08/26/19 Atorvastatin Calcium (ATORVASTATIN CALCIUM) 40 Mg Tab, 1 TAB PO DAILY for 100 Days, #100 08/26/19 Cilostazol (Cilostazol) 100 Mg Tab, 1 TAB PO BID for 100 Days, #200 08/26/19 Current Medications Current Medications Medications (Trade) Dose Ordered Sig/Rosa Route PRN Reason Start Time Stop Time Status Last Admin Heparin Sodium/ Dextrose 250 ml @ 10 mls/hr Q24H IV 09/09/25 14:00 09/10/25 02:39 DC 09/10/25 01:03 Heparin Sodium/ Dextrose 250 ml @ 7 mls/hr Q24H IV 09/10/25 02:45 09/10/25 05:51 Diagnostic Test (Pha) (Accu-Chek Comfort Curve T) 1 strip Q6HR 09/10/25 18:00 Insulin Human Regular (InsuLIN R) Q6HR SC 09/10/25 18:00 Review of Systems 14 point ROS negative except mentioned above Vital Signs Vital Signs Date Time Temp Pulse Resp B/P (MAP) Pulse Ox O2 Delivery O2 Flow Rate FiO2 09/10/25 12:26 105 16 99 09/10/25 12:19 Nasal Cannula 2.0 09/10/25 12:19 28 09/10/25 12:01 98.2 168/69 (102) 98.2 Physical Exam GE: in no distress CVS: S1S2+ Lungs: clear Abdomen: soft, nondistended, nontender, BS+ Labs/Diagnostic Data Labs Test 09/10/25 12:04 09/10/25 09:50 09/10/25 03:30 09/09/25 04:30 Range/Units POC Glucose 299 H 70-106 mg/dl Prothrombin Time 12.5 H 9.3-11.8 sec Prothrombin Time INR 1.20 H 0.9-1.15 Activated Partial Thromboplast Time 72.3 *H 24.5-34.5 SEC Random Vancomycin Level 19.0 H 5-10 ug/mL White Blood Count 10.9 H 4.4-10.8 10^3/uL Red Blood Count 2.61 L 4.0-5.20 10^6/uL Hemoglobin 8.5 L 12.2-16.2 g/dL Hematocrit 24.6 L 36.0-46.0 % Mean Corpuscular Volume 94.4 80.0-100.0 fL Mean Corpuscular Hemoglobin 32.6 H 28.0-32.0 pg Mean Corpuscular Hemoglobin Concent 34.6 32.0-36.0 g/dL Red Cell Distribution Width 18.0 H 11.8-14.3 % Platelet Count 200 140-450 10^3/uL Mean Platelet Volume 10.0 6.9-10.8 fL Neutrophils (%) (Auto) 89.6 H 37.0-80.0 % Lymphocytes (%) (Auto) 4.5 L 10.0-50.0 % Monocytes (%) (Auto) 5.8 0.0-12.0 % Eosinophils (%) (Auto) 0.0 0.0-7.0 % Basophils (%) (Auto) 0.1 0.0-2.0 % Neutrophils # (Auto) 9.8 H 1.6-8.6 10 ^3/uL Lymphocytes # (Auto) 0.5 0.4-5.4 10 ^3/uL Monocytes # (Auto) 0.6 0-1.3 10 ^3/uL Eosinophils # (Auto) 0 0-0.8 10 ^3/uL Basophils # (Auto) 0 0-0.2 10 ^3/uL Nucleated Red Blood Cells 2.6 % Sodium Level 134 L 136-145 mmol/L Potassium Level 3.8 3.5-5.1 mmol/L Chloride Level 96 L 98-107 mmol/L Carbon Dioxide Level 27 20-31 mmol/L Anion Gap 11 5-15 Blood Urea Nitrogen 34 #H 9-23 mg/dL Creatinine 2.70 #H 0.550-1.02 mg/dL Glomerular Filtration Rate Calc 18 >90 mL/min BUN/Creatinine Ratio 12.6 10.0-20.0 Serum Glucose 215 H 74-106 mg/dL Calcium Level 7.7 L 8.7-10.4 mg/dL Magnesium Level 1.9 1.6-2.6 mg/dL Total Bilirubin 0.7 0.2-1.0 mg/dL Aspartate Amino Transferase (AST) 184 H 13-40 U/L Alanine Aminotransferase (ALT) 286 H 7-40 U/L Alkaline Phosphatase 91 46-116 U/L Total Protein 5.6 L 5.7-8.2 g/dL Albumin 3.3 3.2-4.8 g/dL Stool Occult Blood Positive Negative Stool Occult Blood Sample #3 Negative Test 09/08/25 07:33 09/07/25 09:58 09/06/25 06:41 09/05/25 15:00 Range/Units Beta-Hydroxybutyric Acid 4.178 H < 0.4 mmol/L Troponin I High Sensitivity 833 *H </=34 ng/L B-Type Natriuretic Peptide 3788.88 0-100 pg/mL Blood Gas Specimen Type Arterial Blood Gas Sample Site Left radial Blood Gas Patient Temperature 37.0 Arterial Blood Date Drawn [id number] Arterial Blood pH 7.347 L 7.350-7.450 Arterial Blood Partial Pressure CO2 29.9 L 32.0-45.0 mmHg Arterial Blood Partial Pressure O2 63.1 L 83.0-108.0 mmHg Arterial Blood HCO3 16.0 L 21.0-28.0 mmol/L Arterial Blood Oxygen Saturation 88.1 L 94.0-98.0 % Arterial Blood Base Excess -8.7 L -2.0-3.0 mmol/L Arterial Blood Oxyhemoglobin 87.0 L 94.0-98.0 % Arterial Blood Carboxyhemoglobin 1.1 0.5-1.5 % Arterial Blood Methemoglobin 0.2 0.0-1.5 % Dagoberto Test Positive Blood Gas Total Hemoglobin 8.40 L 12.0-16.0 g/dL Blood Gas Set Respiration Rate 12.0 Blood Gas Modality Mask - bipap FiO2 % 45.0 Blood Gas EPAP 5 Blood Gas IPAP 16 Blood Gas Spontaneous Rate 38 Test 09/05/25 10:15 09/05/25 10:12 09/04/25 23:35 09/04/25 13:46 Range/Units Phosphorus Level 6.7 H 2.4-5.1 mg/dL Vitamin D 25-Hydroxy 37.3 30.0-100 ng/mL Parathyroid Hormone (Intact) 351.3 H 18.4-80.1 pg/mL Hepatitis B Surface Antigen Negative Negative Influenza Type A Antigen Negative Negative Influenza Type B Antigen Negative Negative SARS-CoV-2 Antigen (Rapid) Positive NEGATIVE D-Dimer, Quantitative 6.35 H 0.0-0.49 mg/L FEU Lactic Acid Level 1.3 0.4-2.0 mmol/L Microbiology Date/Time Source Procedure Growth Status 09/06/25 22:01 Nose MRSA Screen - Final Complete 09/04/25 11:00 Blood Blood Culture - Final NO GROWTH AFTER 5 DAYS OF INCUBATION. Complete Assessment #Chronic iron deficiency anemia wo over GIB #Elevated liver enzymes #Elevated troponin #CHF exacerbation, valvular disease #ESRD on HD #COVID positive Monitor Hb, keep >8 PPI qd Anemia in setting of ESRD, epoetin shots recommended to resume. Iron supplementation daily Needs bidirectional endoscopy with MAC for further evaluation on anemia, once cardiac status stable. Can be done at [place] if transferred, as no active GIB. Acute hep panel negative. Monitor liver enzymes. Check US abd to eval liver Cardiology on board. Care plan discussed with pt, family and RN bedside Thank you for the consult. Plan discussed with: Patient, Daughter, Other GRIFFIN RICCI MD Sep 10, 2025 13:54
--- NOTE | 2025-09-10 15:32 | DVHPN2 ---
Consult Progress Note Date Seen: Sep 10, 2025 Subjective Review of Systems: CVS:Normal, RESPIRATORY:Normal, NEURO:Normal Objective vital signs Vital Sign Date Time Temp Pulse Resp B/P (MAP) Pulse Ox O2 Delivery O2 Flow Rate FiO2 09/10/25 14:00 94 09/10/25 14:00 16 99 Nasal Cannula* 2 09/10/25 12:01 98.2 168/69 (102) 98.2 Total Intake and Output 09/09/25 09/09/25 09/10/25 15:00 23:00 07:00 Intake Total 109.0 ml 770 ml 148 ml Output Total 150 ml 350 ml Balance 109.0 ml 620 ml -202 ml medications Current Medications Medications Dose Ordered Sig/Rosa Route Start Time Stop Time Status Last Admin Dose Admin Levalbuterol HCl 0.625 mg Q6HR NEB 09/05/25 00:00 09/10/25 12:19 0.625 MG Norepinephrine Bitartrate 250 ml @ 3.75 mls/hr Q24H IV 09/04/25 19:30 09/07/25 15:37 3.75 MLS/HR Ondansetron HCl 4 mg Q4HP PRN IV 09/04/25 19:30 Acetaminophen 650 mg Q6HP PRN PO 09/04/25 19:30 09/07/25 03:08 650 MG Cefepime HCl 50 ml @ 12.5 mls/hr DAILY IV 09/05/25 10:00 09/10/25 09:59 12.5 MLS/HR Vancomycin HCl 0 ml @ 0 mls/hr PER PHARMACY IV 09/05/25 03:45 Labetalol HCl 10 mg Q4HP PRN IV 09/05/25 15:00 Dexamethasone Sodium Phosphate 4 mg DAILY IV 09/06/25 10:00 09/10/25 09:59 4 MG Lorazepam 0.5 mg Q6HP PRN IV 09/05/25 15:00 Pantoprazole Sodium 40 mg DAILY IV 09/06/25 10:00 09/10/25 09:59 40 MG Acetaminophen/ Hydrocodone Bitart 1 tab Q4HPRN PRN PO 09/07/25 10:30 09/09/25 20:38 1 TAB Phenylephrine HCl 80 mg/Sodium Chloride 250 ml @ 7.5 mls/hr Q24H IV 09/07/25 13:00 09/08/25 06:21 29.063 MLS/HR Heparin Sodium/ Dextrose 250 ml @ 5 mls/hr Q24H IV 09/07/25 18:00 Cancel Enteral Nutritional Formula 240 ml TIDWM PO 09/08/25 12:00 09/10/25 12:11 240 ML Insulin Glargine 15 units HS SC 09/08/25 22:00 09/09/25 22:40 15 UNITS Dextrose 50 ml UD PRN IV 09/08/25 17:15 Heparin Sodium/ Dextrose 250 ml @ 7 mls/hr Q24H IV 09/10/25 02:45 09/10/25 05:51 7 MLS/HR Diagnostic Test (Pha) 1 strip Q6HR 09/10/25 18:00 Insulin Human Regular Q6HR SC 09/10/25 18:00 Examination: GENERAL:Abnormal (Chronically ill), LUNGS:Abnormal (Coarse bilaterally, improving), CVS:Normal (NSR, on heparin drip. 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 Angeles) * Transthoracic echocardiogram (09/05/2025): LVEF 25% with entire anterior, apical, and distal half of IVS hypokinetic. Heavily calcified mitral/aortic leaflets. Critical aortic valve stenosis with KATARZYNA at 0.8 cm2, peak gradient at 71 mmHg, and mean gradient at 42 mmHg. * Transthoracic echocardiogram (06/03/2025): LVEF at 50% with normal RV function. Left atrial enlargement. Dficgynj-lf-piawzi mitral insufficiency. Stenosis and thickening of the aortic valve leaflets as well as diminished excursion. * Transesophageal echocardiogram (06/04/2025): LVEF about 55% with normal RV function. There appears to be a 2-3 mm vegetation in the inferior medial aspect of the base of the posterior mitral leaflet. * Twelve lead electrocardiogram x1: Sinus tachycardia without evidence of ischemia. * Serial troponin levels trending up with latest 1,500s ng/L Plan: Given significantly reduced EF from 50% to 25% with associated anteroapical hypokinesis and critical aortic valve stenosis recommendations are for a right and left cardiac catheterization with coronary angiogram with surgical backup [facility]. Initiate lipid lowering agent with optimal LFTs (currently trending up). Stop heparin drip and hold DAPT given need of PRBCs and positive stool occult blood test. Initiate DVT/VTE prophylaxis. Continue GI recommendations. Continue Nephrology recommendations for HD. Monitor ECG changes closely and notify accordingly. Further orders per clinical course. Thank you for allowing us to participate in this patient's care. Please call if you have any questions or concerns. Critical care time spent: 30 minutes. This medical document was created using an electronic medical record system with voice recognition software and computerized dictation system. Although this document has been carefully reviewed, there might still be some phonetic and typographical errors. Occasional wrong-word or ``sound-alike substitutions may have occurred due to the inherent limitations of voice recognition software. These areas are purely typographical due to imperfections of the software programs and do not reflect any compromise in the patient's medical care. Please read the chart carefully and recognize, using context, where these substitutions have occurred. Plan discussed with: Patient, Other Dietary Evaluation Review Comments: Reinforce CCHO-60 Renal Standard Diet Educate on dietary NA, fluid and glucose control Expected Outcomes/Goals: Controlled DM, with dietary control of CCHO and fluid restriction Date of Service: Sep 10, 2025 Billing Provider: OLLIE SR Cardiology Common Codes: 18423-[id number] CARE 30-74 MIN OLLIE SR Sep 10, 2025 15:32
[2025-09-10] MEDS: InsuLIN REG 1unit/0.01ml Soln (100units/ml) SC SCH (17:44)
[2025-09-10] MEDS: ACCU-CHEK COMFORT CURVE STRIP VI SCH (17:44)
[2025-09-10] MEDS: HEPARIN SODIUM (PORCINE) 5000 UNITS/ML 1ML VIAL SC SCH (21:35)
--- NOTE | 2025-09-10 22:31 | DVHPN2 ---
Consult Progress Note Date Seen: Sep 10, 2025 Subjective Review of Systems: CVS:Normal, RESPIRATORY:Normal, NEURO:Normal Other Systems: Patient was seen and evaluated in follow up in the ICU. Patient complains of generaized weakness. She is on 2 LPM NC. WBC 10.9, HGB 8.5, HCT 24.6, BUN 34, VOLTAGE INSPECTOR 2.70, GLUC 299, AST 184, ALT 286. Objective vital signs Vital Sign Date Time Temp Pulse Resp B/P (MAP) Pulse Ox O2 Delivery O2 Flow Rate FiO2 09/10/25 15:00 97 13 143/77 (99) 99 09/10/25 14:00 Nasal Cannula* 2 28 09/10/25 12:01 98.2 98.2 Total Intake and Output 09/09/25 09/09/25 09/10/25 15:00 23:00 07:00 Intake Total 109.0 ml 770 ml 148 ml Output Total 150 ml 350 ml Balance 109.0 ml 620 ml -202 ml medications Current Medications Medications Dose Ordered Sig/Rosa Route Start Time Stop Time Status Last Admin Dose Admin Levalbuterol HCl 0.625 mg Q6HR NEB 09/05/25 00:00 09/10/25 12:19 0.625 MG Ondansetron HCl 4 mg Q4HP PRN IV 09/04/25 19:30 Acetaminophen 650 mg Q6HP PRN PO 09/04/25 19:30 09/07/25 03:08 650 MG Cefepime HCl 50 ml @ 12.5 mls/hr DAILY IV 09/05/25 10:00 09/10/25 09:59 12.5 MLS/HR Vancomycin HCl 0 ml @ 0 mls/hr PER PHARMACY IV 09/05/25 03:45 Labetalol HCl 10 mg Q4HP PRN IV 09/05/25 15:00 Dexamethasone Sodium Phosphate 4 mg DAILY IV 09/06/25 10:00 09/10/25 09:59 4 MG Lorazepam 0.5 mg Q6HP PRN IV 09/05/25 15:00 Pantoprazole Sodium 40 mg DAILY IV 09/06/25 10:00 09/10/25 09:59 40 MG Acetaminophen/ Hydrocodone Bitart 1 tab Q4HPRN PRN PO 09/07/25 10:30 09/09/25 20:38 1 TAB Heparin Sodium/ Dextrose 250 ml @ 5 mls/hr Q24H IV 09/07/25 18:00 Cancel Enteral Nutritional Formula 240 ml TIDWM PO 09/08/25 12:00 09/10/25 12:11 240 ML Insulin Glargine 15 units HS SC 09/08/25 22:00 09/09/25 22:40 15 UNITS Dextrose 50 ml UD PRN IV 09/08/25 17:15 Diagnostic Test (Pha) 1 strip Q6HR 09/10/25 18:00 Insulin Human Regular Q6HR SC 09/10/25 18:00 Heparin Sodium (Porcine) 5,000 units Q12HR SC 09/10/25 22:00 Examination: GENERAL:Abnormal (Chronically ill), LUNGS:Abnormal (Coarse bilaterally, improving), CVS:Normal (NSR, on heparin drip. Off vasopressors), NEURO:Normal laboratory and microbiology Laboratory Tests 09/10/25 03:30 Test 09/10/25 03:30 Range/Units Serum Glucose 215 H 74-106 mg/dL Problem List/Assessment/Plan Problem List/Assessment/Plan Problem List Acute on chronic decompensated HFrEF, NYHA class IV. Acute hypoxic respiratory failure with multifocal pneumonia/COVID-19. Non ST-elevation myocardial infarction rule out progressive coronary artery disease. Hx of cardiopulmonary arrest status post CPR with ROSC (06/2025). 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 Coronary artery disease status post PTCA with multiple MORGAN. Mitral valve insufficiency, severe degree. Aortic valve stenosis, critical. Type 2 diabetes mellitus. ESRD on HD. Plan/Recommendation Continued all current supportive medical care. Patient has been seen by Patricia Alaniz NP on my behalf, her/him and I discussed the plan with the patient. Transthoracic echocardiogram (09/05/2025): LVEF 25% with entire anterior, apical, and distal half of IVS hypokinetic. Heavily calcified mitral/aortic leaflets. Critical aortic valve stenosis with KATARZYNA at 0.8 cm2, peak gradient at 71 mmHg, and mean gradient at 42 mmHg. Transthoracic echocardiogram (06/03/2025): LVEF at 50% with normal RV function. Left atrial enlargement. Udheivrj-ou-cmdjck mitral insufficiency. Stenosis and thickening of the aortic valve leaflets as well as diminished excursion. Transesophageal echocardiogram (06/04/2025): LVEF about 55% with normal RV function. There appears to be a 2-3 mm vegetation in the inferior medial aspect of the base of the posterior mitral leaflet. Twelve lead electrocardiogram x1: Sinus tachycardia without evidence of ischemia. Serial troponin levels trending up with latest 1,500s ng/L Given significantly reduced EF from 50% to 25% with associated anteroapical hypokinesis and critical aortic valve stenosis recommendations are for a right and left cardiac catheterization with coronary angiogram with surgical backup preferably at [facility]. Initiate lipid lowering agent with optimal LFTs (currently trending up). Stop heparin drip and hold DAPT given need of PRBCs and positive stool occult blood test. Initiate DVT/VTE prophylaxis. Continue GI recommendations. Continue Nephrology recommendations for HD. Monitor ECG changes closely and notify accordingly. Further orders per clinical course. Additional plan as per the hospital course. Plan discussed with: Patient Dietary Evaluation Review Comments: Reinforce CCHO-60 Renal Standard Diet Educate on dietary NA, fluid and glucose control Expected Outcomes/Goals: Controlled DM, with dietary control of CCHO and fluid restriction Date of Service: Sep 10, 2025 Billing Provider: ENID RODGERS MD Cardiology Common Codes: [id number] HOSP CARE(High ENID RODGERS MD Sep 10, 2025 15:44
--- NOTE | 2025-09-10 23:37 | DVHPN2 ---
Subjective DOS: 09/10/2025 Patient seen and examined at bedside. Remains on supplemental oxygen Overnight events reviewed. Reviewed: Care Plan, H&P, Labs Changes from previous H/P or p: No Changes General: Per HPI Objective Vitals Vital Signs Date Time Temp Pulse Resp B/P (MAP) Pulse Ox O2 Delivery O2 Flow Rate FiO2 09/10/25 20:00 69 18 98 Nasal Cannula* 2 28 09/10/25 19:30 148/83 (104) 09/10/25 16:00 98.1 98.1 Intake/Output Intake and Output 09/10/25 07:00 Intake Total 1027.0 ml Output Total 500 ml Balance 527.0 ml Intake Oral 800 ml IV Total 227.0 ml Output Urine Total 500 ml # Bowel Movements 2 General Appearance: Alert, Oriented X3, Cooperative, moderate distress HEENT: Atraumatic, PERRLA Lungs: Other (Decreased air entry bilaterally. Bibasilar crackles. On supplemental oxygen) Cardiovascular: Normal S1, Normal S2, Other (Loud systolic murmur) Abdomen: Normal bowel sounds, Soft, No tenderness Genitourinary: No Apparent Abnormalities (Mathews catheter) Musculoskeletal: Normal sensory function, Normal motor function Neuro: Normal speech Skin: Dry, Intact Psych/Mental Status: Mental status NL, Other (Withdrawn) Medications Current Medications Medications Dose Ordered Sig/Rosa Route Start Time Stop Time Status Last Admin Dose Admin Levalbuterol HCl 0.625 mg Q6HR NEB 09/05/25 00:00 09/10/25 18:49 0.625 MG Ondansetron HCl 4 mg Q4HP PRN IV 09/04/25 19:30 Acetaminophen 650 mg Q6HP PRN PO 09/04/25 19:30 09/07/25 03:08 650 MG Cefepime HCl 50 ml @ 12.5 mls/hr DAILY IV 09/05/25 10:00 09/10/25 09:59 12.5 MLS/HR Vancomycin HCl 0 ml @ 0 mls/hr PER PHARMACY IV 09/05/25 03:45 Labetalol HCl 10 mg Q4HP PRN IV 09/05/25 15:00 Dexamethasone Sodium Phosphate 4 mg DAILY IV 09/06/25 10:00 09/10/25 09:59 4 MG Lorazepam 0.5 mg Q6HP PRN IV 09/05/25 15:00 Pantoprazole Sodium 40 mg DAILY IV 09/06/25 10:00 09/10/25 09:59 40 MG Acetaminophen/ Hydrocodone Bitart 1 tab Q4HPRN PRN PO 09/07/25 10:30 09/10/25 20:26 1 TAB Heparin Sodium/ Dextrose 250 ml @ 5 mls/hr Q24H IV 09/07/25 18:00 Cancel Enteral Nutritional Formula 240 ml TIDWM PO 09/08/25 12:00 09/10/25 17:44 240 ML Insulin Glargine 15 units HS SC 09/08/25 22:00 09/10/25 21:34 15 UNITS Dextrose 50 ml UD PRN IV 09/08/25 17:15 Diagnostic Test (Pha) 1 strip Q6HR 09/10/25 18:00 09/10/25 17:44 1 STRIP Insulin Human Regular Q6HR SC 09/10/25 18:00 09/10/25 17:44 12 UNITS Heparin Sodium (Porcine) 5,000 units Q12HR SC 09/10/25 22:00 09/10/25 21:35 5,000 UNITS Laboratory Results Laboratory Tests 09/10/25 03:30 Chemistry Test 09/10/25 03:30 Albumin 3.3 g/dL (3.2-4.8) Calcium Level 7.7 mg/dL (8.7-10.4) L Magnesium Level 1.9 mg/dL (1.6-2.6) Total Protein 5.6 g/dL (5.7-8.2) L Coagulation Test 09/10/25 01:49 09/10/25 09:50 Prothrombin Time 12.8 sec (9.3-11.8) H 12.5 sec (9.3-11.8) H Prothrombin Time INR 1.23 (0.9-1.15) H 1.20 (0.9-1.15) H Activated Partial Thromboplast Time 92.0 SEC (24.5-34.5) *H 72.3 SEC (24.5-34.5) *H LFT Test 09/10/25 03:30 Alanine Aminotransferase (ALT) 286 U/L (7-40) H Alkaline Phosphatase 91 U/L (46-116) Aspartate Amino Transferase (AST) 184 U/L (13-40) H Total Bilirubin 0.7 mg/dL (0.2-1.0) Microbiology Microbiology Date/Time Source Procedure Growth Status 09/06/25 22:01 Nose MRSA Screen - Final Complete 09/04/25 11:00 Blood Blood Culture - Final NO GROWTH AFTER 5 DAYS OF INCUBATION. Complete Assessment/Plan Assessment/Plan Impression: Acute hypoxic respiratory failure Dependence on supplemental oxygen Acute on chronic systolic and diastolic heart failure with worsening ejection fraction Septic shock Multifocal pneumonia/COVID-[address]-elevation myocardial infarction ESRD with hemodialysis Severe pulmonary vascular congestion Coronary artery disease status post PTCA with multiple MORGAN. Acute anemia requiring blood transfusion Legal blindness Events: Remains on supplemental oxygen, 2 LPM NC Taper O2 as tolerated On heparin drip for anticoagulation Follow up Cardiology recs. Continue bronchodilators Continue antibiotics Follow up cultures Continue Decadron course. Hemodialysis per Nephrology - s/p HD yesterday Monitor renal function. Monitor electrolytes. Supplement as necessary. Patient is stable for downgrade from the pulmonary standpoint. Labs and imaging reviewed. Rest of plan as noted below. Plan: Supplemental oxygen Titrate to keep O2 sats above 92%. On heparin drip Off pressors since 09/08/25, hemodynamically stable. Continue bronchodilators Continue antibiotics Continue Decadron Blood pressure control Protonix for GI ppx Accu-Cheks, ISS. Hemodialysis per Nephrology Monitor renal function. Monitor electrolytes. Supplement as necessary. Monitor ins and outs. GI/DVT prophylaxis. Prognosis: Poor given patient's multiple co-morbidities. Rest of plan per hospitalist and other consultants. Thank you, Dr. Vilalseñor, for allowing me to participate in this patient's care. Further recommendations will depend on the patient's clinical course. Please do not hesitate to contact me if you have any questions or concerns. This medical document was created using an electronic medical record system with [employer]is[employer] dictation system. Although these documentations are being carefully reviewed, there may still be some phonetic and typographical changes. The errors are purely typographical, due to imperfection on the software program, and do not reflect any compromise in the patient's medical care. Plan discussed with: Patient, Other (ELISA Mcpherson) My Orders Orders - MANOLO HERNDON MD Procedure Category Date Status Time Glucose Blood PHA 09/10/25 In Process (Accu-Chek Comfort 18:00 Insulin R (Human) PHA 09/10/25 In Process (Insulin R) 18:00 Visit Coding Pulmonary Billing Provider: MANOLO HERNDON MD Date of Service if different f: Sep 10, 2025 Common Visit Codes: [id number] INP/OBS CARE(HIGH) MANOLO HERNDON MD Sep 10, 2025 23:37
[2025-09-11] VITALS (13 sets, daily range): BP systolic 125–154; BP diastolic 69–94; PULSE 81–110; RESP 12–19; TEMP 36.6; O2SAT 90–100
[2025-09-11] MEDS: LABETALOL HCL 20 MG/4 ML VL IV PRN (05:39)
[2025-09-11 07:04] LABS: Hematocrit 26.1 % (36.0-46.0); Hemoglobin 8.8 g/dL (12.2-16.2); Mean Corpuscular Hemoglobin 31.1 pg (28.0-32.0); Mean Corpuscular Volume 92.1 fL (80.0-100.0)
[2025-09-11 07:18] LABS: Anion Gap 14 (5-15); BUN/Creatinine Ratio 12.4 (10.0-20.0); Carbon Dioxide 25 mmol/L (20-31); Magnesium 2.0 mg/dL (1.6-2.6); Potassium 3.9 mmol/L (3.5-5.1); Total Protein 6.3 g/dL (5.7-8.2)
[2025-09-11 07:19] LABS: Albumin 3.5 g/dL (3.2-4.8); Bilirubin, Total 0.6 mg/dL (0.2-1.0); Chloride 95 mmol/L (98-107); Glucose 201 mg/dL (74-106); Sodium 134 mmol/L (136-145)
[2025-09-11 07:20] LABS: Alanine Aminotransferase 290 U/L (7-40); Alkaline Phosphatase 139 U/L (46-116); Blood Urea Nitrogen 47 mg/dL (9-23); Calcium 7.7 mg/dL (8.7-10.4)
--- NOTE | 2025-09-11 08:39 | DVHPN2 ---
Progress Note - Dictate Date Seen: Sep 11, 2025 Has the PT tested + for MRSA If YES, has PT been informed?: No Medical Necessity Reason Pt with a Central, PICC or Fol: No Subjective no acute issues vital signs Vital Sign Date Time Temp Pulse Resp B/P (MAP) Pulse Ox O2 Delivery O2 Flow Rate FiO2 09/11/25 07:00 17 95 Nasal Cannula* 2 28 09/11/25 06:39 83 145/86 09/11/25 05:00 96.0 96.0 Total Intake and Output 09/10/25 09/10/25 09/11/25 15:00 23:00 07:00 Intake Total 106 ml 800 ml Output Total 300 ml 700 ml Balance 106 ml 500 ml -700 ml medications Current Medications Medications Dose Ordered Sig/Rosa Route Start Time Stop Time Status Last Admin Dose Admin Levalbuterol HCl 0.625 mg Q6HR NEB 09/05/25 00:00 09/11/25 06:03 0.625 MG Ondansetron HCl 4 mg Q4HP PRN IV 09/04/25 19:30 Acetaminophen 650 mg Q6HP PRN PO 09/04/25 19:30 09/07/25 03:08 650 MG Cefepime HCl 50 ml @ 12.5 mls/hr DAILY IV 09/05/25 10:00 09/10/25 09:59 12.5 MLS/HR Vancomycin HCl 0 ml @ 0 mls/hr PER PHARMACY IV 09/05/25 03:45 Labetalol HCl 10 mg Q4HP PRN IV 09/05/25 15:00 09/11/25 05:39 10 MG Dexamethasone Sodium Phosphate 4 mg DAILY IV 09/06/25 10:00 09/10/25 09:59 4 MG Lorazepam 0.5 mg Q6HP PRN IV 09/05/25 15:00 Pantoprazole Sodium 40 mg DAILY IV 09/06/25 10:00 09/10/25 09:59 40 MG Acetaminophen/ Hydrocodone Bitart 1 tab Q4HPRN PRN PO 09/07/25 10:30 09/10/25 20:26 1 TAB Heparin Sodium/ Dextrose 250 ml @ 5 mls/hr Q24H IV 09/07/25 18:00 Cancel Enteral Nutritional Formula 240 ml TIDWM PO 09/08/25 12:00 09/10/25 17:44 240 ML Insulin Glargine 15 units HS SC 09/08/25 22:00 09/10/25 21:34 15 UNITS Dextrose 50 ml UD PRN IV 09/08/25 17:15 Diagnostic Test (Pha) 1 strip Q6HR 09/10/25 18:00 09/11/25 05:39 1 STRIP Insulin Human Regular Q6HR SC 09/10/25 18:00 09/11/25 05:40 6 UNITS Heparin Sodium (Porcine) 5,000 units Q12HR SC 09/10/25 22:00 09/10/25 21:35 5,000 UNITS objective NAD Lungs: bilateral rales CV: irregular rhythm, II/ CLARISSA, no pericardial rub Abdomen: mildly distended, froilan ascites Trace leg edema Neuro: non focal laboratory and microbiology Laboratory Tests 09/11/25 04:40 Test 09/11/25 04:40 Range/Units Serum Glucose 201 H 74-106 mg/dL Problem List 1. ESRD 2. COVID infection 3. Psfcehwi-zz-eguidy mitral regurgitation 4. Aortic stenosis 5. NSTEMI 6. s/p fall/rib pain 7. DM2 8. H/O CHF 9. Severe anemia, s/p blood transfusion 10. Sepsis has resolved, she is off pressor support Assessment/Plan Plan: HD on TTS schedule Supportive care for COVID infection Strict Is and Os BMP in AM Dietary Evaluation Review Comments: Reinforce CCHO-60 Renal Standard Diet Educate on dietary NA, fluid and glucose control Expected Outcomes/Goals: Controlled DM, with dietary control of CCHO and fluid restriction Plan discussed with: Other BRANDY ANTONIO MD Sep 11, 2025 08:38
[2025-09-11 08:52] LABS: Nucleated Red Blood Cells % 4.0 %; Total Cells Counted 100.0 (100)
[2025-09-11 08:53] LABS: Anisocytosis Slight
--- NOTE | 2025-09-11 09:58 | DVHDS2 ---
Discharge Summary Date of Admission Sep 04, 2025 at 19:23 Date of Discharge: Sep 11, 2025 Labs/Diagnostic Data: Laboratory Results Test 09/11/25 05:25 09/11/25 04:40 09/10/25 09:50 09/10/25 03:30 POC Glucose 202 mg/dl (70-106) White Blood Count 12.8 10^3/uL (4.4-10.8) Red Blood Count 2.84 10^6/uL (4.0-5.20) Hemoglobin 8.8 g/dL (12.2-16.2) Hematocrit 26.1 % (36.0-46.0) Mean Corpuscular Volume 92.1 fL (80.0-100.0) Mean Corpuscular Hemoglobin 31.1 pg (28.0-32.0) Mean Corpuscular Hemoglobin Concent 33.7 g/dL (32.0-36.0) Red Cell Distribution Width 18.3 % (11.8-14.3) Platelet Count 215 10^3/uL (140-450) Mean Platelet Volume 10.3 fL (6.9-10.8) Neutrophils (%) (Auto) % (37.0-80.0) Lymphocytes (%) (Auto) % (10.0-50.0) Monocytes (%) (Auto) % (0.0-12.0) Basophils (%) (Auto) % (0.0-2.0) Neutrophils # (Auto) 10 ^3/uL (1.6-8.6) Lymphocytes # (Auto) 10 ^3/uL (0.4-5.4) Monocytes # (Auto) 10 ^3/uL (0-1.3) Differential Total Cells Counted 100.0 (100) Neutrophils % (Manual) 81 (37.0-80.0) Band Neutrophils % (Manual) 1 Lymphocytes % (Manual) 6 (10.0-50.0) Monocytes % (Manual) 12 (0-12) Eosinophils % (Manual) 0 (0-7) Basophils % (Manual) 0 (0.0-2.0) Metamyelocytes % (manual) 0 Myelocytes % (Manual) 0 Promyelocytes % (Manual) 0 Blast Cells % (Manual) 0 Nucleated Red Blood Cells 4.0 % Reactive Lymphocytes 0 Platelet Estimate Adequate Anisocytosis (manual) Slight [place] Cells Few Sodium Level 134 mmol/L (136-145) Potassium Level 3.9 mmol/L (3.5-5.1) Chloride Level 95 mmol/L (98-107) Carbon Dioxide Level 25 mmol/L (20-31) Anion Gap 14 (5-15) Blood Urea Nitrogen 47 mg/dL (9-23) Creatinine 3.80 mg/dL (0.550-1.02) Glomerular Filtration Rate Calc 12 mL/min (>90) BUN/Creatinine Ratio 12.4 (10.0-20.0) Serum Glucose 201 mg/dL (74-106) Calcium Level 7.7 mg/dL (8.7-10.4) Magnesium Level 2.0 mg/dL (1.6-2.6) Total Bilirubin 0.6 mg/dL (0.2-1.0) Aspartate Amino Transferase (AST) 161 U/L (13-40) Alanine Aminotransferase (ALT) 290 U/L (7-40) Alkaline Phosphatase 139 U/L (46-116) Total Protein 6.3 g/dL (5.7-8.2) Albumin 3.5 g/dL (3.2-4.8) Prothrombin Time 12.5 sec (9.3-11.8) Prothrombin Time INR 1.20 (0.9-1.15) Activated Partial Thromboplast Time 72.3 SEC (24.5-34.5) Random Vancomycin Level 19.0 ug/mL (5-10) Eosinophils (%) (Auto) 0.0 % (0.0-7.0) Eosinophils # (Auto) 0 10 ^3/uL (0-0.8) Basophils # (Auto) 0 10 ^3/uL (0-0.2) Test 09/09/25 04:30 09/08/25 07:33 09/07/25 09:58 09/06/25 06:41 Stool Occult Blood Positive (Negative) Stool Occult Blood Sample #3 (Negative) Beta-Hydroxybutyric Acid 4.178 mmol/L (< 0.4) Troponin I High Sensitivity 833 ng/L (</=34) B-Type Natriuretic Peptide 3788.88 pg/mL (0-100) Blood Gas Specimen Type Arterial Blood Gas Sample Site Left radial Blood Gas Patient Temperature 37.0 Arterial Blood Date Drawn [id number] Arterial Blood pH 7.347 (7.350-7.450) Arterial Blood Partial Pressure CO2 29.9 mmHg (32.0-45.0) Arterial Blood Partial Pressure O2 63.1 mmHg (83.0-108.0) Arterial Blood HCO3 16.0 mmol/L (21.0-28.0) Arterial Blood Oxygen Saturation 88.1 % (94.0-98.0) Arterial Blood Base Excess -8.7 mmol/L (-2.0-3.0) Arterial Blood Oxyhemoglobin 87.0 % (94.0-98.0) Arterial Blood Carboxyhemoglobin 1.1 % (0.5-1.5) Arterial Blood Methemoglobin 0.2 % (0.0-1.5) Dagoberto Test Positive Blood Gas Total Hemoglobin 8.40 g/dL (12.0-16.0) Blood Gas Set Respiration Rate 12.0 Blood Gas Modality Mask - bipap FiO2 % 45.0 Blood Gas EPAP 5 Blood Gas IPAP 16 Test 09/05/25 15:00 09/05/25 10:15 09/05/25 10:12 09/04/25 23:35 Blood Gas Spontaneous Rate 38 Phosphorus Level 6.7 mg/dL (2.4-5.1) Vitamin D 25-Hydroxy 37.3 ng/mL (30.0-100) Parathyroid Hormone (Intact) 351.3 pg/mL (18.4-80.1) Hepatitis B Surface Antigen Negative (Negative) Influenza Type A Antigen Negative (Negative) Influenza Type B Antigen Negative (Negative) SARS-CoV-2 Antigen (Rapid) Positive (NEGATIVE) D-Dimer, Quantitative 6.35 mg/L FEU (0.0-0.49) Test 09/04/25 13:46 Lactic Acid Level 1.3 mmol/L (0.4-2.0) Other Laboratory Tests 09/11/25 04:40 Brief Hx & Hospital Course: SEE DICTATED NOTE Condition at Discharge: Fair Final Diagnosis/Problems List CHF Discharge Disposition: Home Discharge Instruct/Medications Diet: Renal Activity: No Restrictions, As Tolerated Follow Up/Referral: PIERCE GASCA PCP/DIALYSIS/ CARDIOLOGY Medications: RESUME HOME MEDS Scheduled 1, 25 Dihydroxycholecalciferol (Rocaltrol Capsule), 1 CAP PO DAILY, (Reported) Amlodipine Besylate (Amlodipine Besylate), 1 TAB PO DAILY, (Reported) Aspirin (Aspirin), 81 MG PO DAILY, (Reported) Atorvastatin Calcium (Atorvastatin Calcium), 1 TAB PO DAILY, (Reported) Calcitriol (Calcitriol), 1 CAP PO DAILY, (Reported) Calcium Acetate (Phosphate Bin (Calcium Acetate), 1 CAP PO TID, (Reported) Carvedilol (Carvedilol), 1 TAB PO BID, (Reported) Cilostazol (Cilostazol), 1 TAB PO BID, (Reported) Famotidine (Acid Bass String Winder), 10 MG PO DAILY, (Reported) Furosemide (Furosemide), 1 TAB PO BID, (Reported) Glipizide (Glipizide), 1 TAB PO DAILY, (Reported) Hydralazine HCl (Hydralazine HCl), 1 TAB PO TID, (Reported) Mirtazapine (Mirtazapine Oral Disintegrating Tablet), 1 TAB PO DAILY, (Reported) Multiple Vitamins W/ Minerals (Multivitamin), 1 TAB PO DAILY, (Reported) Sitagliptin (Sitagliptin), 1 TAB PO DAILY, (Reported) Scheduled PRN Hydrocodone-Acetaminophen (Hydrocodone/Acetaminophen 5-325 mg), 1 TAB PO BIDPRN PRN, (Reported) Discharge Statement: "Patient was advised to return to the ER or call 911 if any headaches, dizziness, shortness of breath, chest pain, abdominal pain, bleeding, fevers, or worsening of medical condition. Patient was counseled about treatment plan, medications, possible side effects, patientverbalized understanding. All questions were answered to the best of my ability. This discharge took greater then 30 minutes in planning, reviewing documentation, counseling the patient, and discussing with other team members." ASSESSMENT ASSESSMENT Assessment CHF Date of Service: Sep 11, 2025 Billing Provider: JEREMIAS JORDAN MD Common Visit Codes: 86670-ASW/OBS DISCH DAY >30min JEREMIAS JORDAN MD Sep 11, 2025 09:58
[2025-09-11] MEDS ORDERED: PANT40TA2 PO (10:05)
--- NOTE | 2025-09-11 10:15 | DVHDS ---
DATE OF DISCHARGE: 09/11/2025 HISTORY OF PRESENT ILLNESS: The patient is a 75-year-old lady who is admitted with history of fall and bilateral rib pain and shortness of breath. The patient has history of coronary artery disease, acute [place], end-stage renal disease, congestive heart failure, blindness, anemia and diabetes mellitus. HOSPITAL COURSE: The patient was noted to be in congestive heart failure. CT angiography was negative for pulmonary embolism. The patient was also treated for possible pneumonia. She was continued on hemodialysis. The patient was anemic for which she was transfused 1 unit of blood. Hemoglobin at time of discharge is 8.8. The patient was made do not intubate by the daughter as well as no CPR. The patient was on BiPAP and eventually weaned off the BiPAP. She will now be discharged home to resume her home medications except she is to avoid aspirin. She will also be sent home on Protonix 40 mg daily. She will follow up with her primary manager filter and Nephrology clinic. The patient was COVID-19 positive while in the hospital. FINAL DIAGNOSES: Therefore: * Acute on chronic respiratory failure with pulmonary edema. * Severe aortic stenosis. * Qirwufuv-gz-dvoats mitral regurgitation. * History of infective endocarditis. * Non-STEMI, questionably type 2. * History of coronary artery disease status post PCI. * History of fall with rib pain. * Type 2 diabetes mellitus. * Blindness. * Acute on chronic systolic heart failure. * COVID-19 with sepsis. * Pneumonia with sepsis, gram-positive and gram-negative. Time spent in discharge planning and review of plan with the patient, nursing and daughter at bedside was 39 minutes. MD JOHNNIE Grayson/LAVELLE TID: [id number] RECEIPT: [id number]
--- NOTE | 2025-09-11 11:29 | DVHPN2 ---
Consult Progress Note Date Seen: Sep 11, 2025 Subjective Review of Systems: CVS:Normal, RESPIRATORY:Normal, NEURO:Normal Other Systems: Denies any cardiac symptoms Objective vital signs Vital Sign Date Time Temp Pulse Resp B/P (MAP) Pulse Ox O2 Delivery O2 Flow Rate FiO2 09/11/25 09:00 97.9 88 16 143/77 (99) 99 97.9 09/11/25 07:00 Nasal Cannula* 2 28 Total Intake and Output 09/10/25 09/10/25 09/11/25 15:00 23:00 07:00 Intake Total 106 ml 800 ml Output Total 300 ml 700 ml Balance 106 ml 500 ml -700 ml medications Current Medications Medications Dose Ordered Sig/Rosa Route Start Time Stop Time Status Last Admin Dose Admin Levalbuterol HCl 0.625 mg Q6HR NEB 09/05/25 00:00 09/11/25 11:21 0.625 MG Ondansetron HCl 4 mg Q4HP PRN IV 09/04/25 19:30 Acetaminophen 650 mg Q6HP PRN PO 09/04/25 19:30 09/07/25 03:08 650 MG Cefepime HCl 50 ml @ 12.5 mls/hr DAILY IV 09/05/25 10:00 09/10/25 09:59 12.5 MLS/HR Vancomycin HCl 0 ml @ 0 mls/hr PER PHARMACY IV 09/05/25 03:45 Labetalol HCl 10 mg Q4HP PRN IV 09/05/25 15:00 09/11/25 05:39 10 MG Dexamethasone Sodium Phosphate 4 mg DAILY IV 09/06/25 10:00 09/11/25 10:25 4 MG Lorazepam 0.5 mg Q6HP PRN IV 09/05/25 15:00 Pantoprazole Sodium 40 mg DAILY IV 09/06/25 10:00 09/11/25 10:24 40 MG Acetaminophen/ Hydrocodone Bitart 1 tab Q4HPRN PRN PO 09/07/25 10:30 09/10/25 20:26 1 TAB Heparin Sodium/ Dextrose 250 ml @ 5 mls/hr Q24H IV 09/07/25 18:00 Cancel Enteral Nutritional Formula 240 ml TIDWM PO 09/08/25 12:00 09/11/25 08:00 240 ML Insulin Glargine 15 units HS SC 09/08/25 22:00 09/10/25 21:34 15 UNITS Dextrose 50 ml UD PRN IV 09/08/25 17:15 Diagnostic Test (Pha) 1 strip Q6HR 09/10/25 18:00 09/11/25 05:39 1 STRIP Insulin Human Regular Q6HR SC 09/10/25 18:00 09/11/25 05:40 6 UNITS Heparin Sodium (Porcine) 5,000 units Q12HR SC 09/10/25 22:00 09/11/25 10:27 5,000 UNITS Examination: GENERAL:Abnormal (Chronically ill), CVS:Abnormal (NSR. +systolic murmur V/ radiating to bilateral carotids) laboratory and microbiology Laboratory Tests 09/11/25 04:40 Test 09/11/25 04:40 Range/Units Serum Glucose 201 H 74-106 mg/dL Problem List/Assessment/Plan Problem List/Assessment/Plan Acute on chronic decompensated HFrEF, NYHA class IV Acute hypoxic respiratory failure with multifocal pneumonia/COVID-[address]-elevation myocardial infarction rule out progressive coronary artery disease Hx of cardiopulmonary arrest status post CPR with ROSC (06/2025) Recent hx of posterior mitral leaflet infective endocarditis s/p ABX therapy (06/2025) Coronary artery disease status post PTCA with multiple MORGAN Mitral valve insufficiency, severe degree Aortic valve stenosis, critical Type 2 diabetes mellitus ESRD on HD Plan/Recommendation (Dr. Angeles) * Transthoracic echocardiogram (09/05/2025): LVEF 25% with entire anterior, apical, and distal half of IVS hypokinetic. Heavily calcified mitral/aortic leaflets. Critical aortic valve stenosis with KATARZYNA at 0.8 cm2, peak gradient at 71 mmHg, and mean gradient at 42 mmHg. * Transthoracic echocardiogram (06/03/2025): LVEF at 50% with normal RV function. Left atrial enlargement. Ssgpnwph-cx-tjddnj mitral insufficiency. Stenosis and thickening of the aortic valve leaflets as well as diminished excursion. * Transesophageal echocardiogram (06/04/2025): LVEF about 55% with normal RV function. There appears to be a 2-3 mm vegetation in the inferior medial aspect of the base of the posterior mitral leaflet. * Twelve lead electrocardiogram x1: Sinus tachycardia without evidence of ischemia. * Serial troponin levels trending up with latest 1,500s ng/L Plan: Given significantly reduced EF from 50% to 25% with associated anteroapical hypokinesis and critical aortic valve stenosis recommendations are for a right and left cardiac catheterization with coronary angiogram with surgical backup preferably at [facility]. Initiate lipid lowering agent with optimal LFTs (currently trending up). Stop heparin drip and hold DAPT given need of PRBCs and positive stool occult blood test. Continue DVT/VTE prophylaxis. Continue GI recommendations. Continue Nephrology recommendations for HD. Kindly call if in need of further recommendations. Signing off at this time. Thank you for allowing us to participate in this patient's care. Please call if you have any questions or concerns. This medical document was created using an electronic medical record system with voice recognition software and computerized dictation system. Although this document has been carefully reviewed, there might still be some phonetic and typographical errors. Occasional wrong-word or ``sound-alike substitutions may have occurred due to the inherent limitations of voice recognition software. These areas are purely typographical due to imperfections of the software programs and do not reflect any compromise in the patient's medical care. Please read the chart carefully and recognize, using context, where these substitutions have occurred. Plan discussed with: Patient, Other Dietary Evaluation Review Comments: Reinforce CCHO-60 Renal Standard Diet Educate on dietary NA, fluid and glucose control Expected Outcomes/Goals: Controlled DM, with dietary control of CCHO and fluid restriction Date of Service: Sep 11, 2025 Billing Provider: OLLIE SR Cardiology Common Codes: [id number] HOSP CARE(High OLLIE SR Sep 11, 2025 11:29
[2025-09-11] MEDS ORDERED: FURO1TAB33 PO (11:34)
--- NOTE | 2025-09-12 00:34 | DVHPN2 ---
Consult Progress Note Date Seen: Sep 11, 2025 Subjective Other Systems: Patient was seen and evaluated in follow up. The patient has been downgraded. Denies any cardiac symptoms. Patient is on 2 LPM NC. WBC 12.8, HGB 8.8, HCT 26.1, BUN 47, Desktop Support Manager 3.80, AST 161, ALT 290, ALK PHOS 139. Telemetry reviewed. Objective vital signs Vital Sign Date Time Temp Pulse Resp B/P (MAP) Pulse Ox O2 Delivery O2 Flow Rate FiO2 09/11/25 12:27 36.6 83 09/11/25 11:26 14 100 09/11/25 09:00 143/77 (99) 09/11/25 07:00 Nasal Cannula* 2 28 medications Current Medications Medications Dose Ordered Sig/Rosa Route Start Time Stop Time Status Last Admin Dose Admin Heparin Sodium/ Dextrose 250 ml @ 5 mls/hr Q24H IV 09/07/25 18:00 Cancel laboratory and microbiology Laboratory Tests 09/11/25 04:40 Test 09/11/25 04:40 Range/Units Serum Glucose 201 H 74-106 mg/dL Problem List/Assessment/Plan Problem List/Assessment/Plan Problem List Acute on chronic decompensated HFrEF, NYHA class IV. Acute hypoxic respiratory failure with multifocal pneumonia/COVID-19. Non ST-elevation myocardial infarction rule out progressive coronary artery disease. Hx of cardiopulmonary arrest status post CPR with ROSC (06/2025). 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 Coronary artery disease status post PTCA with multiple MORGAN. Mitral valve insufficiency, severe degree. Aortic valve stenosis, critical. Type 2 diabetes mellitus. ESRD on HD. Plan/Recommendation Continued all current supportive medical care. Patient has been seen by Patricia Alaniz NP on my behalf, her/him and I discussed the plan with the patient. Transthoracic echocardiogram (09/05/2025): LVEF 25% with entire anterior, apical, and distal half of IVS hypokinetic. Heavily calcified mitral/aortic leaflets. Critical aortic valve stenosis with KATARZYNA at 0.8 cm2, peak gradient at 71 mmHg, and mean gradient at 42 mmHg. Transthoracic echocardiogram (06/03/2025): LVEF at 50% with normal RV function. Left atrial enlargement. [id number] mitral insufficiency. Stenosis and thickening of the aortic valve leaflets as well as diminished excursion. Transesophageal echocardiogram (06/04/2025): LVEF about 55% with normal RV function. There appears to be a 2-3 mm vegetation in the inferior medial aspect of the base of the posterior mitral leaflet. Twelve lead electrocardiogram x1: Sinus tachycardia without evidence of ischemia. Serial troponin levels trending up with latest 1,500s ng/L Given significantly reduced EF from 50% to 25% with associated anteroapical hypokinesis and critical aortic valve stenosis recommendations are for a right and left cardiac catheterization with coronary angiogram with surgical backup preferably at [facility]. Initiate lipid lowering agent with optimal LFTs (currently trending up). Stop heparin drip and hold DAPT given need of PRBCs and positive stool occult blood test. Initiate DVT/VTE prophylaxis. Continue GI recommendations. Continue Nephrology recommendations for HD. Monitor ECG changes closely and notify accordingly. Further orders per clinical course. Additional plan as per the hospital course. Plan discussed with: Patient Dietary Evaluation Review Comments: Reinforce CCHO-60 Renal Standard Diet Educate on dietary NA, fluid and glucose control Expected Outcomes/Goals: Controlled DM, with dietary control of CCHO and fluid restriction Date of Service: Sep 11, 2025 Billing Provider: ENID RODGERS MD Cardiology Common Codes: [id number] HOSP CARE(High ENID RODGERS MD Sep 12, 2025 00:34
== END 2025-09-11 13:07 | disposition short-term general hospital (02) | DRG 871 ==
LOC: EDBD 10:00 → ER 10:00 → OVERFLOW 19:23 → ICU WEST 09-06 18:07 → TELE-CENTR 09-10 20:04
PROVIDERS: ADMIT Internal Medicine; ATTEND Internal Medicine
PROC: 5A09357 Assistance with Respiratory Ventilation, Less than 24 Consecutive Hours, Continuous Positive Airway Pressure (ICD-10-PCS; principal; 2025-09-04)
PROC: 5A09357 Assistance with Respiratory Ventilation, Less than 24 Consecutive Hours, Continuous Positive Airway Pressure (ICD-10-PCS; 2025-09-05)
PROC: 5A1D70Z Performance of Urinary Filtration, Intermittent, Less than 6 Hours Per Day (ICD-10-PCS; 2025-09-05)
PROC: 5A09357 Assistance with Respiratory Ventilation, Less than 24 Consecutive Hours, Continuous Positive Airway Pressure (ICD-10-PCS; 2025-09-06)
PROC: 5A1D70Z Performance of Urinary Filtration, Intermittent, Less than 6 Hours Per Day (ICD-10-PCS; 2025-09-07)
PROC: 05HC33Z Insertion of Infusion Device into Left Basilic Vein, Percutaneous Approach (ICD-10-PCS; 2025-09-08)
PROC: B54NZZA Ultrasonography of Left Upper Extremity Veins, Guidance (ICD-10-PCS; 2025-09-08)
PROC: 30233N1 Transfusion of Nonautologous Red Blood Cells into Peripheral Vein, Percutaneous Approach (ICD-10-PCS; 2025-09-09)
PROC: 5A1D70Z Performance of Urinary Filtration, Intermittent, Less than 6 Hours Per Day (ICD-10-PCS; 2025-09-09)
DX: A41.89 Other specified sepsis (principal); E11.10 Type 2 diabetes mellitus with ketoacidosis without coma; J12.82 Pneumonia due to coronavirus disease 2019; U07.1 COVID-19; N18.6 End stage renal disease; R65.21 Severe sepsis with septic shock; J96.21 Acute and chronic respiratory failure with hypoxia; I21.A1 Myocardial infarction type 2; J15.69 Pneumonia due to other Gram-negative bacteria; J15.9 Unspecified bacterial pneumonia; I50.23 Acute on chronic systolic (congestive) heart failure; I13.2 Hypertensive heart and chronic kidney disease with heart failure and with stage 5 chronic kidney disease, or end stage renal disease; H54.8 Legal blindness, as defined in USA; I25.10 Atherosclerotic heart disease of native coronary artery without angina pectoris; E11.22 Type 2 diabetes mellitus with diabetic chronic kidney disease; E11.51 Type 2 diabetes mellitus with diabetic peripheral angiopathy without gangrene; E21.3 Hyperparathyroidism, unspecified; E11.40 Type 2 diabetes mellitus with diabetic neuropathy, unspecified; D50.9 Iron deficiency anemia, unspecified; D63.1 Anemia in chronic kidney disease; Z79.84 Long term (current) use of oral hypoglycemic drugs; Z79.899 Other long term (current) drug therapy; I08.0 Rheumatic disorders of both mitral and aortic valves; Z82.49 Family history of ischemic heart disease and other diseases of the circulatory system; Z86.74 Personal history of sudden cardiac arrest; Z86.79 Personal history of other diseases of the circulatory system; Z95.5 Presence of coronary angioplasty implant and graft; Z99.2 Dependence on renal dialysis; Z99.81 Dependence on supplemental oxygen; Z86.16 Personal history of COVID-19
CPT/HCPCS: 36415; 36600; 71045; 71275; 80048; 80053; 80202; 82010; 82270; 82306; 82805; 82962; 83605; 83735; 83880; 83970; 84100; 84484; 85007; 85014; 85018; 85025; 85027; 85379; 85610; 85730; 86850; 86900; 86901; 86920; 87040; 87081; 87340; 87426; 87804; 90935; 93005; 93306; 94640; 94660; 96365; 96368; 97110; 97116; 97163; 97530; 99291; 99292; G0378; J1100; J1815; J2470; J2543; P9047